=== PATIENT | male | born 1940 | race Caucasian/White ===

== ENCOUNTER 2016-05-17 08:55 | Outpatient (CLI) | payer MEDICARE, OTHER | END 2016-05-17 08:56 | disposition home or self-care (01) | DX: R73.9 Hyperglycemia, unspecified (principal); E78.5 Hyperlipidemia, unspecified ==

== ENCOUNTER 2016-12-06 13:20 | Emergency (ER) | payer MEDICARE, OTHER ==
[2016-12-06 13:31] VITALS: BP 140/78
--- NOTE | 2016-12-06 15:03 | ED Physician Documentation ---
PD HPI SKIN - Stated complaint Stated Complaint: L HAND SWOLLEN - Chief complaint Chief Complaint: Allergic Rx - History obtained from History obtained from: Patient - History of Present Illness Timing - onset: Other (Stung by a bee to the left pinky yesterday morning and has swelling and itching of that hand without pain or diffuse hives or airway symptoms.) Review of Systems Constitutional: reports: Reviewed and negative Cardiac: reports: Reviewed and negative Respiratory: reports: Reviewed and negative PD PAST MEDICAL HISTORY - Past Medical History Past Medical History: Yes Cardiovascular: Hypertension, Coronary artery disease Respiratory: None Endocrine/Autoimmune: None GI: GERD, Hiatal hernia, Colon polyps : Benign prostate hypertrophy, Frequency, Other HEENT: None Psych: Claustrophobia Musculoskeletal: Osteoarthritis Derm: None - Past Surgical History Past Surgical History: Yes General: Appendectomy Cardiovascular: Coronary stent - Present Medications Home Medications: Ambulatory Orders Medication Instructions Recorded Confirmed Aspirin [Kaleb] 325 mg PO DAILY 08/03/14 12/06/16 Losartan/Hydrochlorothiazide 1 tab PO DAILY 12/06/16 12/06/16 [Losartan-Hctz 100-25 mg Tab] predniSONE [Deltasone] 20 mg PO DAILY 3 Days 12/06/16 - Allergies Allergies/Adverse Reactions: Allergies Allergy/AdvReac Type Severity Reaction Status Date / Time No Known Drug Allergies Allergy Verified 12/06/16 13:31 - Social History Does the pt smoke?: No Smoking Status: Former smoker Does the pt drink ETOH?: Yes Does the pt have substance abuse?: No - Immunizations Immunizations are current?: Yes - POLST Patient has POLST: No POLST Status: Full Code PD ED PE NORMAL - Vitals Vital signs reviewed: Yes - General General: Alert and oriented X 3, No acute distress - HEENT HEENT: Pharynx benign - Extremities Extremities: Other (He has angioedema of the dorsum of the left hand especially on the medial side and difficulty making a fist because of the tightness, the swelling goes up to the wrist but not further. There is no evidence of infection.) - Neuro Neuro: Alert and oriented X 3, Normal speech - Psych Psych: Normal mood, Normal affect Results - Vitals Vitals: Vital Signs - 24 hr 12/06/16 13:28 Temperature 35.7 C L Heart Rate 85 Respiratory 16 Rate Blood Pressure 140/78 H O2 Saturation 98 Oxygen O2 Source Room air PD MEDICAL DECISION MAKING - ED course ED course: The patient was counseled as to the diagnosis and need for follow-up. I counseled the patient with regard to signs and symptoms that would necessitate an urgent reevaluation in the emergency department. They understand they are welcome to return at any time if worse or if not improving as expected. This document was made in part using voice recognition software. While efforts are made to proofread this documents, sound alike and grammatical errors may occur. Departure - Departure Disposition: 01 Home, Self Care Clinical Impression: Local reaction to bee sting Qualifiers: Encounter type: initial encounter Injury intent: accidental or unintentional Qualified Code(s): T63.441A - Toxic effect of venom of bees, accidental ( unintentional), initial encounter Condition: Good Record reviewed to determine appropriate education?: Yes Instructions: ED Bite Sting Insect Local Allergic React Prescriptions: predniSONE [Deltasone] 20 mg PO DAILY 3 Days Comments: Call your doctor to arrange a follow-up appointment, make the next available appointment. In the interim, return anytime if worse or if new symptoms develop. Your blood pressure was elevated today on check into the emergency department. This does not mean that you have hypertension, it is a common phenomenon to come to the emergency department and have elevated blood pressure. I recommend that she see your primary care physician within the week to have it rechecked when you are feeling better.
== END 2016-12-06 15:12 | disposition home or self-care (01) ==
LOC: ED 13:20
DX: T63.441A Toxic effect of venom of bees, accidental (unintentional), initial encounter (principal); T78.3XXA Angioneurotic edema, initial encounter; Z87.891 Personal history of nicotine dependence
CPT/HCPCS: 99283

== ENCOUNTER 2016-12-13 08:00 | Outpatient (CLI) | payer MEDICARE, OTHER ==
[2016-12-13 19:44] LABS: CREATININE 1.1 mg/dL (0.6-1.2)
== END 2016-12-13 08:01 | disposition home or self-care (01) ==
LOC: LAB.WCP 08:00
PROVIDERS: ATTEND Physician Assistant Medical
DX: B35.1 Tinea unguium (principal)
CPT/HCPCS: 36415; 82565; 84450; 84460

== ENCOUNTER 2016-12-28 10:03 | Day surgery (SDC) | payer MEDICARE, OTHER ==
[2016-12-28] MEDS ORDERED: LACTATED RINGERS 1,000 ML IV ONE (10:09)
[2016-12-28] MEDS ORDERED: fentaNYL 100 MCG/2 ML VIAL IVP ONE (10:40)
[2016-12-28] MEDS ORDERED: MIDAZOLAM 2 MG/2 ML VIAL IVP ONE (10:40)
[2016-12-28 11:47] VITALS: BP 110/68
== END 2016-12-28 10:04 | disposition home or self-care (01) ==
LOC: SDS 10:03
PROVIDERS: ATTEND Surgery
PROC: 0DJD8ZZ Inspection of Lower Intestinal Tract, Via Natural or Artificial Opening Endoscopic (ICD-10-PCS; principal; 2016-12-28 10:30)
DX: Z86.010 Personal history of colon polyps (principal); K57.30 Diverticulosis of large intestine without perforation or abscess without bleeding; Z79.82 Long term (current) use of aspirin; I10 Essential (primary) hypertension; Z87.891 Personal history of nicotine dependence; E78.00 Pure hypercholesterolemia, unspecified
CPT/HCPCS: 45378; J7120

== ENCOUNTER 2017-12-01 08:59 | Outpatient (CLI) | payer MEDICARE, OTHER ==
[2017-12-01 13:09] LABS: BASOPHILS % (AUTO) 0.5 %; EOSINOPHILS # (AUTO) 0.2 10^3/uL (0.0-0.7); EOSINOPHILS % (AUTO) 2.5 %; HGB - HEMOGLOBIN 14.2 g/dL (14.0-18.0); LYMPHOCYTES # (AUTO) 1.2 10^3/uL (1.5-3.5); LYMPHOCYTES % (AUTO) 18.2 %; MEAN CORPUSCULAR HEMOGLOBIN 31.3 pg (27.0-31.0); MEAN CORPUSCULAR HGB CONC 34.3 g/dL (32.0-36.0); MEAN CORPUSCULAR VOLUME 91.4 fL (80.0-94.0); MEAN PLATELET VOLUME 10.7 fL (7.4-11.4); MONOCYTES # (AUTO) 0.5 10^3/uL (0.0-1.0); MONOCYTES % (AUTO) 8.2 %; NEUTROPHILS # (AUTO) 4.6 10^3/uL (1.5-6.6); NEUTROPHILS % (AUTO) 70.6 %; PLT - PLATELET COUNT 215 10^3/uL (130-450); RED BLOOD COUNT 4.53 10^6/uL (4.70-6.10); RED CELL DISTRIBUTION WIDTH 13.2 % (12.0-15.0); WHITE BLOOD COUNT 6.4 x10^3/uL (4.8-10.8)
[2017-12-01 13:30] LABS: ALBUMIN 4.6 g/dL (3.2-5.5); ALBUMIN/GLOBULIN RATIO 1.4 (1.0-2.2); ALKALINE PHOSPHATASE 101 IU/L (42-121); ALT ALANINE AMINOTRANSFERASE 24 IU/L (10-60); AST ASPARTATE AMINOTRANSFERASE 21 IU/L (10-42); BILIRUBIN,TOTAL 0.7 mg/dL (0.2-1.0); BUN - BLOOD UREA NITROGEN 14 mg/dL (6-20); CALCIUM 9.5 mg/dL (8.5-10.3); CARBON DIOXIDE - CO2 27 mmol/L (21-32); CHLORIDE 105 mmol/L (101-111); CHOL/HDL RATIO 6.1 (<5.0); CHOLESTEROL 214 mg/dL; CREATININE 0.9 mg/dL (0.6-1.2); GFR - MDRD 82 (>89); GLUCOSE 115 mg/dL (70-100); HDL CHOLESTEROL 35 mg/dL; LDL CHOLESTEROL,CALCULATED 146 mg/dL; LDL/HDL RATIO 4.2 (<3.6); SODIUM 139 mmol/L (135-145); TOTAL PROTEIN 7.8 g/dL (6.7-8.2); VLDL CHOLESTEROL 33 mg/dL
[2017-12-01 15:08] LABS: HB2 TOTAL 15.4 g/dL; HEMOGLOBIN A1C 0.68 g/dL; HEMOGLOBIN A1C % 6.2 % (4.6-6.2)
== END 2017-12-01 09:00 | disposition home or self-care (01) ==
LOC: LAB.WCP 08:59
PROVIDERS: ATTEND Physician Assistant Medical
DX: R73.9 Hyperglycemia, unspecified (principal); E78.5 Hyperlipidemia, unspecified; I25.10 Atherosclerotic heart disease of native coronary artery without angina pectoris; K21.9 Gastro-esophageal reflux disease without esophagitis; F10.10 Alcohol abuse, uncomplicated; I10 Essential (primary) hypertension
CPT/HCPCS: 36415; 80053; 80061; 83036; 83721; 84443; 85025

== ENCOUNTER 2017-12-29 10:55 | Outpatient (CLI) | payer MEDICARE, OTHER | END 2017-12-29 10:56 | disposition home or self-care (01) | LOC: RT 10:55 | PROVIDERS: ATTEND Internal Medicine Cardiovascular Disease | DX: I25.10 Atherosclerotic heart disease of native coronary artery without angina pectoris (principal) | CPT/HCPCS: 93005 ==

== ENCOUNTER 2018-11-16 07:56 | Outpatient (CLI) | payer MEDICARE, OTHER ==
[2018-11-16 08:27] LABS: ALBUMIN 4.4 g/dL (3.2-5.5); ALBUMIN/GLOBULIN RATIO 1.3 (1.0-2.2); ALKALINE PHOSPHATASE 83 IU/L (42-121); ALT ALANINE AMINOTRANSFERASE 30 IU/L (10-60); AST ASPARTATE AMINOTRANSFERASE 21 IU/L (10-42); BILIRUBIN,TOTAL 0.8 mg/dL (0.2-1.0); BUN - BLOOD UREA NITROGEN 16 mg/dL (6-20); CALCIUM 9.5 mg/dL (8.5-10.3); CARBON DIOXIDE - CO2 27 mmol/L (21-32); CHLORIDE 102 mmol/L (101-111); CHOL/HDL RATIO 5.5 (<5.0); CHOLESTEROL 218 mg/dL; CREATININE 1.2 mg/dL (0.6-1.2); GFR - MDRD 58 (>89); GLUCOSE 137 mg/dL (70-100); HDL CHOLESTEROL 40 mg/dL; LDL CHOLESTEROL,CALCULATED 143 mg/dL; LDL/HDL RATIO 3.6 (<3.6); SODIUM 138 mmol/L (135-145); TOTAL PROTEIN 7.9 g/dL (6.7-8.2); VLDL CHOLESTEROL 35 mg/dL
[2018-11-16 13:57] LABS: HB2 TOTAL 14.4 g/dL; HEMOGLOBIN A1C 0.74 g/dL; HEMOGLOBIN A1C % 6.9 % (4.6-6.2)
== END 2018-11-16 07:57 | disposition home or self-care (01) ==
LOC: LAB 07:56
PROVIDERS: ATTEND Physician Assistant Medical
DX: E78.5 Hyperlipidemia, unspecified (principal); R73.9 Hyperglycemia, unspecified
CPT/HCPCS: 36415; 80053; 80061; 83036; 83721

== ENCOUNTER 2019-03-05 09:00 | Outpatient (CLI) | payer MEDICARE, OTHER ==
[2019-03-05 13:18] LABS: ALBUMIN 4.5 g/dL (3.2-5.5); ALBUMIN/GLOBULIN RATIO 1.4 (1.0-2.2); ALKALINE PHOSPHATASE 78 IU/L (42-121); ALT ALANINE AMINOTRANSFERASE 32 IU/L (10-60); AST ASPARTATE AMINOTRANSFERASE 25 IU/L (10-42); BILIRUBIN,TOTAL 0.8 mg/dL (0.2-1.0); BUN - BLOOD UREA NITROGEN 15 mg/dL (6-20); CARBON DIOXIDE - CO2 28 mmol/L (21-32); CHLORIDE 100 mmol/L (101-111); CHOL/HDL RATIO 5.8 (<5.0); CHOLESTEROL 250 mg/dL; CREATININE 1.1 mg/dL (0.6-1.2); GFR - MDRD 65 (>89); GLUCOSE 132 mg/dL (70-100); HDL CHOLESTEROL 43 mg/dL; LDL CHOLESTEROL,CALCULATED 137 mg/dL; LDL/HDL RATIO 3.2 (<3.6); SODIUM 136 mmol/L (135-145); TOTAL PROTEIN 7.7 g/dL (6.7-8.2); VLDL CHOLESTEROL 70 mg/dL
[2019-03-05 13:21] LABS: HB2 TOTAL 14.8 g/dL; HEMOGLOBIN A1C 0.76 g/dL; HEMOGLOBIN A1C % 6.8 % (4.6-6.2)
== END 2019-03-05 23:59 | disposition home or self-care (01) ==
LOC: LAB.WCP 09:00
PROVIDERS: ATTEND Physician Assistant Medical
DX: E78.5 Hyperlipidemia, unspecified (principal); R73.9 Hyperglycemia, unspecified
CPT/HCPCS: 36415; 80053; 80061; 83036; 83721

== ENCOUNTER 2019-12-11 15:20 | Outpatient (CLI) | payer MEDICARE, OTHER | END 2019-12-11 23:59 | disposition home or self-care (01) | LOC: COV 15:20 | PROVIDERS: ATTEND Family Medicine | DX: Z20.828 Contact with and (suspected) exposure to other viral communicable diseases (principal) ==

== ENCOUNTER 2020-02-08 08:54 | Outpatient (CLI) | payer MEDICARE, OTHER ==
[2020-02-08 09:42] LABS: BUN - BLOOD UREA NITROGEN 19 mg/dL (6-20); CALCIUM 9.1 mg/dL (8.5-10.3); CARBON DIOXIDE - CO2 28 mmol/L (21-32); CHLORIDE 102 mmol/L (101-111); CHOL/HDL RATIO 5.7 (<5.0); CHOLESTEROL 247 mg/dL; CREATININE 1.1 mg/dL (0.6-1.2); GLUCOSE 149 mg/dL (70-100); HDL CHOLESTEROL 43 mg/dL; LDL CHOLESTEROL,CALCULATED 160 mg/dL; LDL/HDL RATIO 3.7 (<3.6); SODIUM 138 mmol/L (135-145); VLDL CHOLESTEROL 44 mg/dL
[2020-02-08 12:44] LABS: HEMOGLOBIN A1c% 6.8 % (4.27-6.07)
== END 2020-02-08 08:55 | disposition home or self-care (01) ==
LOC: LAB 08:54
PROVIDERS: ATTEND Physician Assistant Medical
DX: E11.9 Type 2 diabetes mellitus without complications (principal)
CPT/HCPCS: 36415; 80048; 80061; 83036; 83721

== ENCOUNTER 2020-02-13 11:51 | Outpatient (CLI) | payer MEDICARE, OTHER ==
[2020-02-13 12:30] LABS: BASOPHILS % (AUTO) 0.4 %; EOSINOPHILS # (AUTO) 0.1 10^3/uL (0.0-0.7); EOSINOPHILS % (AUTO) 1.7 %; HGB - HEMOGLOBIN 14.7 g/dL (14.0-18.0); LYMPHOCYTES # (AUTO) 1.5 10^3/uL (1.5-3.5); LYMPHOCYTES % (AUTO) 19.4 %; MEAN CORPUSCULAR HEMOGLOBIN 32.5 pg (27.0-31.0); MEAN CORPUSCULAR HGB CONC 33.6 g/dL (32.0-36.0); MEAN CORPUSCULAR VOLUME 96.7 fL (80.0-94.0); MONOCYTES # (AUTO) 0.7 10^3/uL (0.0-1.0); MONOCYTES % (AUTO) 8.8 %; NEUTROPHILS # (AUTO) 5.4 10^3/uL (1.5-6.6); NEUTROPHILS % (AUTO) 69.3 %; PLT - PLATELET COUNT 216 10^3/uL (130-450); RED BLOOD COUNT 4.53 10^6/uL (4.70-6.10); RED CELL DISTRIBUTION WIDTH 12.9 % (12.0-15.0); WHITE BLOOD COUNT 7.8 x10^3/uL (4.8-10.8)
[2020-02-13 12:58] LABS: THYROID STIMULATING HORMONE 1.48 uIU/mL (0.34-5.60)
[2020-02-13 13:04] LABS: FERRITIN 163.3 ng/mL (23.9-336.2)
== END 2020-02-13 11:52 | disposition home or self-care (01) ==
LOC: LAB 11:51
PROVIDERS: ATTEND Physician Assistant Medical
DX: M62.81 Muscle weakness (generalized) (principal); R53.83 Other fatigue
CPT/HCPCS: 36415; 81599; 82306; 82607; 82728; 84402; 84403; 84443; 85025

== ENCOUNTER 2020-08-25 08:00 | Outpatient (CLI) | payer MEDICARE, OTHER ==
[2020-08-25 12:28] LABS: ESTIMATED AVERAGE GLUCOSE 154 mg/dL (70-100)
[2020-08-25 12:31] LABS: ALBUMIN 4.7 g/dL (3.2-5.5); ALBUMIN/GLOBULIN RATIO 1.5 (1.0-2.2); ALKALINE PHOSPHATASE 89 IU/L (42-121); ALT ALANINE AMINOTRANSFERASE 31 IU/L (10-60); AST ASPARTATE AMINOTRANSFERASE 22 IU/L (10-42); BILIRUBIN,TOTAL 0.8 mg/dL (0.2-1.0); BUN - BLOOD UREA NITROGEN 21 mg/dL (6-20); CALCIUM 9.6 mg/dL (8.5-10.3); CARBON DIOXIDE - CO2 26 mmol/L (21-32); CHLORIDE 103 mmol/L (101-111); CHOL/HDL RATIO 3.9 (<5.0); CHOLESTEROL 185 mg/dL; CREATININE 1.1 mg/dL (0.6-1.2); GFR - MDRD 64 (>89); GLUCOSE 126 mg/dL (70-100); HDL CHOLESTEROL 47 mg/dL; LDL CHOLESTEROL,CALCULATED 110 mg/dL; LDL/HDL RATIO 2.3 (<3.6); POTASSIUM 4.5 mmol/L (3.5-5.0); SODIUM 140 mmol/L (135-145); TOTAL PROTEIN 7.9 g/dL (6.7-8.2); TRIGLYCERIDES 139 mg/dL; VLDL CHOLESTEROL 28 mg/dL
== END 2020-08-25 23:59 | disposition home or self-care (01) ==
LOC: LAB.WCP 08:00
PROVIDERS: ATTEND Physician Assistant Medical
DX: E11.9 Type 2 diabetes mellitus without complications (principal); E55.9 Vitamin D deficiency, unspecified
CPT/HCPCS: 36415; 80053; 80061; 82306; 83036; 83721

== ENCOUNTER 2021-02-11 08:00 | Outpatient (CLI) | payer MEDICARE, OTHER ==
[2021-02-11 12:41] LABS: ESTIMATED AVERAGE GLUCOSE 163 mg/dL (70-100); HEMOGLOBIN A1c% 7.3 % (4.27-6.07)
[2021-02-11 13:03] LABS: ALBUMIN 4.3 g/dL (3.2-5.5); ALBUMIN/GLOBULIN RATIO 1.3 (1.0-2.2); ALKALINE PHOSPHATASE 89 IU/L (42-121); ALT ALANINE AMINOTRANSFERASE 26 IU/L (10-60); AST ASPARTATE AMINOTRANSFERASE 18 IU/L (10-42); BILIRUBIN,TOTAL 0.7 mg/dL (0.2-1.0); BUN - BLOOD UREA NITROGEN 17 mg/dL (6-20); CALCIUM 9.4 mg/dL (8.5-10.3); CARBON DIOXIDE - CO2 29 mmol/L (21-32); CHLORIDE 103 mmol/L (101-111); CHOL/HDL RATIO 6.6 (<5.0); CHOLESTEROL 212 mg/dL; GFR - MDRD 72 (>89); GLUCOSE 132 mg/dL (70-100); HDL CHOLESTEROL 32 mg/dL; LDL CHOLESTEROL,CALCULATED 137 mg/dL; LDL/HDL RATIO 4.3 (<3.6); POTASSIUM 4.4 mmol/L (3.5-5.0); SODIUM 141 mmol/L (135-145); TOTAL PROTEIN 7.7 g/dL (6.7-8.2); TRIGLYCERIDES 214 mg/dL; VLDL CHOLESTEROL 43 mg/dL
== END 2021-02-11 23:59 ==
LOC: LAB.WCP 08:00
PROVIDERS: ATTEND Physician Assistant Medical
DX: E11.9 Type 2 diabetes mellitus without complications (principal)
CPT/HCPCS: 36415; 80053; 80061; 83036; 83721

== ENCOUNTER 2021-03-05 08:22 | Outpatient (CLI) | payer MEDICARE, OTHER ==
--- NOTE | 2021-03-05 11:06 | CARDIAC PROCEDURE NOTE ---
Stress Test Report Service Date: 03/05/21 Service Time: 09:30 Ordering Provider: Brooke Simon PA-C Indication for Test: Assess for recurrent ischemia in patient with prior right coronary artery stent in 2013, now with recurrent exertional chest discomfort. Significant Medical History: Obed reports that he experienced exertional chest discomfort in 2012 that led to an abnormal stress test, coronary angiography and placement of an RCA stent; afterwards he had relief of his discomfort. He reports that about a year ago he started having intermittent episodes of a similar type of chest discomfort, usually with some combination of being post-prandial, physically active and/or in the cold. He reports no associated nausea, diaphoresis, lightheadness or marked dyspnea, nor chest discomfort at rest. He mentions receiving acupuncture treatments for several months, up until about 4 months ago, but then discontinued. It was after this time that the chest discomfort became more troublesome to him, though it has generally remained stable in intensity and will subside with just a couple of minutes of resting. He remains very active, with daily Anthony-Anuel, periodic use of a home rowing machine and participation in a boxing group; he does not feel that there has been a decrement in his stamina or exercise capacity. He mentions that he has exercise-related left leg pain, so he prefers exercise favoring his upper extremities. Cardiac Risk Factors: Positive for prior known CAD, s/p PCI; also for hypertension, hyperlipidemia and diabetes. Has a significant (>30 yrs) tobacco smoking history but quit nearly 40 yrs ago. He is not aware of close relatives with CAD. Type of Stress Test: ETT with Myocardial Perfusion Imaging Procedure: -Exercise Treadmill Test- After signing informed consent, the patient underwent resting 99Tc-Myoview SPECT imaging and then performed treadmill exercise using a Lino protocol. The patient exercised for 4 minutes 33 seconds and achieved a peak heart rate of 130 (93 percent predicted maximum heart rate for age), and an estimated workload of 6.5 METS. The test was terminated due to marked dyspnea, achieving target heart rate, though following onset of his typical chest discomfort after onset of stage II. As he exercised for another ~one minute, dyspnea became limiting. Progressive left leg pain also was becoming limiting. Resting heart rate: 79 Peak heart rate: 130 Normal response to exercise. Resting BP: 194/88 Peak BP: 204/75; though BP actually decreased with exercise (188/74) prior to increasing during Recovery phase, with reading of 204/75 at 3 minutes. Thus he was hypertensive at rest (omitted AM losartan as he just ran out) with an ABNORMAL BP response to exercise. Rhythm during exercise: Sinus rhythm throughout, with rare isolated PVCs noted. Symptoms: As described above. EKG at rest showed normal sinus rhythm, probable left atrial abnormality and left anterior fascicular block. EKG at peak stress showed no ischemia by EKG criteria, though there was prolongation of his QRS complex duration (possibly becoming abnormal at 120 msec). In Recovery heart rate rapidly and normally returned to baseline; blood pressure evolution was as described above, with last reading at 9 minutes below baseline (179/73). The QRS duration decreased back to baseline (~105 msec) by the conclusion of Recovery. Nuclear imaging was performed at rest and with stress and will be reported separately. Trev Malone MD, was present throughout this treadmill stress study and supervised it in its entirety. Summary: 1) Exercise tolerance significantly reduced for age as evidenced by WILIAN of 19.5%. 2) Abnormal resting EKG, with left anterior fascicular block. 3) Adequate level of exercise was achieved on this treadmill stress test. 4) Hypertensive at rest with abnormal BP response to exercise, as detailed above. 5) There were no specific ischemic changes by EKG criteria seen at peak stress, though the QRS complex duration transiently increased to the abnormal range. 6) Analysis of gated nuclear images reveals normal resting left ventricular wall motion with low normal ejection fraction of 54%. SPECT image analysis reveals normal perfusion of the LV at rest with a stress-associated defect in the mid inferior and lateral church, indicative of ischemia in the left circumflex coronary artery territory. See separate report for more detail. CONCLUSIONS/RECOMMENDATIONS: 1) Abnormal exercise study, with recreation of patient's symptoms, blood pressure decrease from abnormally elevated baseline through exercise then rebound in Recovery phase, and incremental exercise-associated increase in the QRS duration. However there was no ST depression observed. 2) Nuclear image analysis indicates inducible ischemia in the left circumflex coronary artery territory. 3) Recommendations discussed with referring provider (Brooke Simon) on the day of the study include: resume aspirin at 81 mg daily, initiate metoprolol tartrate at 25 mg bid, consider issuing rx for SL NTG and resume statin treatment. The patient reported stopping atorvastatin due to tolerance issues, with subsequent ingestion of red yeast rice (in setting of markedly elevated "bad cholesterol", per his report). Given his known prior CAD, major ongoing risks and results highly suggestive of circumflex territory ischemia he should be trialed on low dose (5 mg) rosuvastatin given initially at twice weekly. If tolerating after 3-4 weeks the dosing interval could be changed to every other day and repeat fasting lipid testing performed after 3-4 weeks of QOD use. If not at target (<50 mg/dL), the dose could be doubled sequentially, to max tolerated level or to target LDLc level. 4) Patient should be seen in primary clinic in 5-7 days for assessment of response to metoprolol (symptoms, BP) and referred back to Cardiology in 3-6 weeks for consideration for repeat angiography, or sooner if symptoms increase.
--- NOTE | 2021-03-05 14:41 | Nuclear Medicine Report ---
PROCEDURE: Rest and exercise myocardial perfusion SPECT with gated imaging and ejection fraction INDICATIONS: CAD. History of prior cardiac stent placement. RADIOPHARMACEUTICAL: 13.4 mCi Tc-99m Myoview IV at rest and 39.9 mCi Tc-99m Myoview IV at peak exerc ise. Dom-ljy-dmimoade was performed. TECHNIQUE: Radiopharmaceutical was injected at peak stress test, and also at rest. SPECT images wer e obtained. SPECT myocardial perfusion images were displayed in short axis, horizontal long axis, an d vertical long axis views. Gated images were reviewed using [employer] software. COMPARISON: 01/22/2013 FINDINGS: Raw data: There is good myocardial labeling by radiotracer. No significant motion artifacts. Lung- to-heart ratio is 0.33 (normal is less than 0.46 for tetrafosmin tracer). Left ventricle function: Gated images demonstrate normal left ventricle wall thickening. No segment al wall motion abnormality. No transient ischemic dilation; TID is 0.96 (normal less than 1.30). Th e left ventricle resting end-diastolic volume is 111 mL. Left ventricle stress ejection fraction is 54%; normal values are above 45%. Myocardial perfusion: There is normal relative distribution of activity in the left and right ventri cular myocardium. There is a moderate-sized reversible perfusion defect within the mid to distal inf erolateral wall highly suggestive of ischemia. Decreased activity within the inferior wall results on prone imaging consistent with soft tissue attenuation artifact. IMPRESSION: 1. Abnormal myocardial perfusion images with a moderate-sized reversible perfusion defect in the mid to distal inferolateral wall consistent with ischemia in the left circumflex artery territory. 2. Left ventricular ejection fraction within normal limits. No segmental wall motion values. Findings discussed with Dr. Moss on 03/05/2021 at 2:30 PM. PQRS ATTESTATIONS: Measure 322 - Is this imaging test primarily performed on a low-risk surgery patient for preoperative evaluation within 30 days preceding their low-risk non-cardiac surgery? Low-risk surgery is defined as cardiac or myocardial infarction less than 1%, including (but not limited to) endoscopic pr ocedures, superficial procedures, cataract surgery, and excisional breast surgery: Answer: No Measure 323 - Is this imaging test performed primarily for the monitoring of an asymptomatic patient who had percutaneous coronary intervention on the visit date or within 2 years of the visit date? An swer: No Measure 324 - Is this imaging test performed primarily for the initial detection and risk assessment on an asymptomatic, low coronary heart disease patient? Low CHD risk definition = clinicians should consider the maximum number of available patient factors used to estimate risk based on Durbin (A TP III criteria), typically age, gender, diabetes, smoking status, and use of blood pressure medicati on, and integrate age appropriate estimates for missing elements, such as LDL or standard blood press ure. Answer: No Reviewed by: Micah Clemens MD on 03/05/2021 2:39 PM PST Approved by: Micah Clemens MD on 03/05/2021 2:39 PM PST Station ID: [id number]
== END 2021-03-05 08:23 | disposition home or self-care (01) ==
LOC: DI 08:22
PROVIDERS: ATTEND Physician Assistant Medical
DX: I25.10 Atherosclerotic heart disease of native coronary artery without angina pectoris (principal); I10 Essential (primary) hypertension; I25.89 Other forms of chronic ischemic heart disease; E78.5 Hyperlipidemia, unspecified; E11.9 Type 2 diabetes mellitus without complications; Z87.891 Personal history of nicotine dependence
CPT/HCPCS: 78452; 93016; 93017; 93018; A9500

== ENCOUNTER 2021-05-11 08:25 | Outpatient (CLI) | payer MEDICARE, OTHER ==
[2021-05-11 08:49] LABS: CREATININE,URINE 260.8 mg/dL; MICROALBUM/CREATININE RATIO,UR 75.5 ug/mg (<30.0); MICROALBUMIN,URINE 19.7 mg/dL (0-300.0)
[2021-05-11 08:54] LABS: ALBUMIN 4.3 g/dL (3.2-5.5); ALBUMIN/GLOBULIN RATIO 1.3 (1.0-2.2); ALKALINE PHOSPHATASE 77 IU/L (42-121); ALT ALANINE AMINOTRANSFERASE 24 IU/L (10-60); AST ASPARTATE AMINOTRANSFERASE 17 IU/L (10-42); BILIRUBIN,TOTAL 0.9 mg/dL (0.2-1.0); BUN - BLOOD UREA NITROGEN 16 mg/dL (6-20); CALCIUM 9.3 mg/dL (8.5-10.3); CARBON DIOXIDE - CO2 28 mmol/L (21-32); CHLORIDE 103 mmol/L (101-111); CHOL/HDL RATIO 5.1 (<5.0); CHOLESTEROL 182 mg/dL; CREATININE 1.2 mg/dL (0.6-1.2); GFR - MDRD 58 (>89); GLUCOSE 156 mg/dL (70-100); HDL CHOLESTEROL 36 mg/dL; LDL CHOLESTEROL,CALCULATED 113 mg/dL; LDL/HDL RATIO 3.1 (<3.6); SODIUM 138 mmol/L (135-145); TOTAL PROTEIN 7.7 g/dL (6.7-8.2); TRIGLYCERIDES 166 mg/dL; VLDL CHOLESTEROL 33 mg/dL
[2021-05-11 12:26] LABS: ESTIMATED AVERAGE GLUCOSE 171 mg/dL (70-100); HEMOGLOBIN A1c% 7.6 % (4.27-6.07)
== END 2021-05-11 08:26 | disposition home or self-care (01) ==
LOC: LAB 08:25
PROVIDERS: ATTEND Physician Assistant Medical
DX: E11.9 Type 2 diabetes mellitus without complications (principal)
CPT/HCPCS: 36415; 80053; 80061; 82043; 82570; 83036; 83721

== ENCOUNTER 2021-09-17 08:07 | Emergency (ER) | payer MEDICARE, OTHER ==
[2021-09-17 08:17] VITALS: BP 162/68
--- NOTE | 2021-09-17 08:25 | ED Physician Documentation ---
PD HPI UPPER EXT INJURY - Stated complaint Stated Complaint: RIGHT HAND LACERATION - Chief complaint Chief Complaint: Laceration - History obtained from History obtained from: Patient - History of Present Illness Location: Right, Hand (dorsum of right hand with partial thickness skin peel with mild bleeding. No punctures. No purulence. Area is only about 1x 1 1/2 cm. No bony tenderness.) Type of injury: Other (dog bite to back of hand with superficial peel of skin.) Timing - onset: Yesterday Timing - details: Abrupt onset, Still present (he cleansed it right after and bandaged it. It was doing okay with slight oozing overnight onto bandage and bled again when unbandaged this morning.) Worsened by: Palpating Associated symptoms: No: Weakness, Numbness Similar symptoms before: Has not had sx before Review of Systems Neurologic: denies: Focal weakness, Numbness PD PAST MEDICAL HISTORY - Past Medical History Cardiovascular: Hypertension, High cholesterol, Coronary artery disease Respiratory: None Endocrine/Autoimmune: Type 2 diabetes GI: GERD, Hiatal hernia, Colon polyps : Benign prostate hypertrophy, Frequency, Other HEENT: None Psych: None, Claustrophobia Musculoskeletal: Osteoarthritis Derm: Other - Past Surgical History Past Surgical History: Yes General: Appendectomy Cardiovascular: Coronary stent - Present Medications Home Medications: Ambulatory Orders Medication Instructions Recorded Confirmed amLODIPine [Norvasc] 5 mg PO BID 03/22/19 09/17/21 Clopidogrel [Plavix] 75 mg PO DAILY 09/17/21 09/17/21 Losartan [Cozaar] 50 mg PO BID 09/17/21 09/17/21 Metoprolol Tartrate [Lopressor] 25 mg PO BID 09/17/21 09/17/21 Rosuvastatin Calcium [Crestor] 5 mg PO PRN 09/17/21 09/17/21 - Allergies Allergies/Adverse Reactions: Allergies Allergy/AdvReac Type Severity Reaction Status Date / Time milk AdvReac gas Verified 09/17/21 08:17 - Social History Does the pt smoke?: No Smoking Status: Former smoker Does the pt drink ETOH?: Yes Does the pt have substance abuse?: No - Immunizations Immunizations are current?: Yes - POLST Patient has POLST: No POLST Status: Full Code PD ED PE NORMAL - Vitals Vital signs reviewed: Yes - General General: Alert and oriented X 3, Well developed/nourished - Derm Derm: Normal color, Warm and dry - Extremities Extremities: Other (dorsum hand with superficial avulsion of skin 1 x 1 1/2 cm with mild bleeding capillary and small vein when bandage removed. No punctures. ) - Neuro Neuro: Alert and oriented X 3, No motor deficit, No sensory deficit Results - Vitals Vitals: Vital Signs - 24 hr 09/17/21 08:10 Temperature 36.2 C L Heart Rate 68 Respiratory 14 Rate Blood Pressure 162/68 H O2 Saturation 95 Oxygen O2 Source Room air PD MEDICAL DECISION MAKING - ED course Complexity details: re-evaluated patient (avulsion of superficial skin so easily cleaned. Discussion with patient and shared not to give abx, but to watch for infection. ), considered differential (local anesthetic with lido 1 % with epi and then cautery and Monsel solution to site to stop bleeding. Bleeding stopped and then bqndaged. ), d/w patient Departure - Departure Disposition: 01 Home, Self Care Clinical Impression: Avulsion of skin of right hand Qualifiers: Encounter type: initial encounter Qualified Code(s): S61.401A - Unspecified open wound of right hand, initial encounter Dog bite Qualifiers: Encounter type: initial encounter Qualified Code(s): W54.0XXA - Bitten by dog, initial encounter Condition: Stable Record reviewed to determine appropriate education?: Yes Instructions: ED Avulsion Dermal Follow-Up: Brooke Simon PA-C [Primary Care Provider] - Comments: Keep the wound bandaged and clean and dry today. Starting tomorrow he can resume cleaning with soap and water and applying ointment or new skin or such. It should be stopped bleeding now with the cautery/sealant. Recheck if signs of infection otherwise this will heal slowly over a week or 2. Discharge Date/Time: 09/17/21 09:00
[2021-09-17] MEDS ORDERED: FERRIC SUBSULFATE 8 ML SOLUTION (FOR OR) TOP STA (08:29)
[2021-09-17] MEDS ORDERED: LIDOCAINE 1%-EPI 1:100000 20 ML MDV SUBQ STA (08:29)
== END 2021-09-17 09:00 | disposition home or self-care (01) ==
LOC: ED 08:07
DX: S61.401A Unspecified open wound of right hand, initial encounter (principal); W54.0XXA Bitten by dog, initial encounter; I10 Essential (primary) hypertension; E11.9 Type 2 diabetes mellitus without complications; Z87.891 Personal history of nicotine dependence
CPT/HCPCS: 99282

== ENCOUNTER 2021-11-13 09:46 | Outpatient (CLI) | payer MEDICARE, OTHER ==
[2021-11-13 10:19] LABS: ALBUMIN 4.5 g/dL (3.2-5.5); ALBUMIN/GLOBULIN RATIO 1.5 (1.0-2.2); ALKALINE PHOSPHATASE 92 IU/L (42-121); ALT ALANINE AMINOTRANSFERASE 24 IU/L (10-60); AST ASPARTATE AMINOTRANSFERASE 21 IU/L (10-42); BILIRUBIN,TOTAL 0.7 mg/dL (0.2-1.0); BUN - BLOOD UREA NITROGEN 13 mg/dL (6-20); CHOL/HDL RATIO 4.9 (<5.0); CHOLESTEROL 178 mg/dL; GFR - MDRD 72 (>89); HDL CHOLESTEROL 36 mg/dL; LDL CHOLESTEROL,CALCULATED 108 mg/dL; TOTAL PROTEIN 7.6 g/dL (6.7-8.2); TRIGLYCERIDES 171 mg/dL; VLDL CHOLESTEROL 34 mg/dL
[2021-11-13 10:22] LABS: CALCIUM 9.2 mg/dL (8.5-10.3); CARBON DIOXIDE - CO2 25 mmol/L (21-32); CHLORIDE 100 mmol/L (101-111); GLUCOSE 123 mg/dL (70-100); POTASSIUM 4.1 mmol/L (3.5-5.0); SODIUM 134 mmol/L (135-145)
[2021-11-13 10:43] LABS: ESTIMATED AVERAGE GLUCOSE 166 mg/dL (70-100); HEMOGLOBIN A1c% 7.4 % (4.27-6.07)
== END 2021-11-13 09:47 | disposition home or self-care (01) ==
LOC: LAB 09:46
PROVIDERS: ATTEND Physician Assistant Medical
DX: E11.9 Type 2 diabetes mellitus without complications (principal)
CPT/HCPCS: 36415; 80053; 80061; 83036; 83721

== ENCOUNTER 2022-02-05 08:24 | Outpatient (CLI) | payer MEDICARE, OTHER ==
[2022-02-05 08:55] LABS: BUN - BLOOD UREA NITROGEN 15 mg/dL (6-20); CALCIUM 9.5 mg/dL (8.5-10.3); CARBON DIOXIDE - CO2 27 mmol/L (21-32); CHLORIDE 103 mmol/L (101-111); CHOL/HDL RATIO 3.2 (<5.0); CHOLESTEROL 138 mg/dL; CREATININE 1.2 mg/dL (0.6-1.2); GFR - MDRD 58 (>89); GLUCOSE 145 mg/dL (70-100); HDL CHOLESTEROL 43 mg/dL; LDL CHOLESTEROL,CALCULATED 73 mg/dL; LDL/HDL RATIO 1.7 (<3.6); POTASSIUM 3.9 mmol/L (3.5-5.0); SODIUM 140 mmol/L (135-145); TRIGLYCERIDES 108 mg/dL; VLDL CHOLESTEROL 22 mg/dL
[2022-02-05 12:54] LABS: ESTIMATED AVERAGE GLUCOSE 163 mg/dL (70-100); HEMOGLOBIN A1c% 7.3 % (4.27-6.07)
== END 2022-02-05 08:25 | disposition home or self-care (01) ==
LOC: LAB 08:24
PROVIDERS: ATTEND Physician Assistant Medical
DX: E11.9 Type 2 diabetes mellitus without complications (principal)
CPT/HCPCS: 36415; 80048; 80061; 83036; 83721

== ENCOUNTER 2022-04-29 01:33 | Outpatient (CLI) | payer MEDICARE, OTHER | END 2022-04-29 01:34 | disposition critical access hospital (66) | LOC: EMS 01:33 | DX: R06.00 Dyspnea, unspecified (principal) | CPT/HCPCS: A0425; A0427 ==

== ENCOUNTER 2022-04-29 01:41 | Emergency (ER) | payer MEDICARE, OTHER ==
--- NOTE | 2022-04-29 01:41 | ED Physician Documentation ---
PD HPI DYSPNEA - Stated complaint Stated Complaint: SOA - History obtained from History obtained from: EMS - Additional information Additional information: HPI is very limited due to severe respiratory distress. Nearly all of the HPI is provided by EMS. EMS reports that approximately 30 to 40 minutes prior to arrival in the emergency department, patient called 911 with complaint of shortness of breath. Patient indicated to EMS that he felt like he is drowning. EMS arrived to find patient's pulse ox in the mid 60s on room air. They applied CPAP and had modest improvement of pulse ox to 75 to 80% by the time of ER arrival. Peripheral IV was established by EMS but they were only minutes away from the emergency department and thus no other interventions aside from the CPAP were undertaken. Patient is able to give a few answers to questions when I try to interview him. He frequently says "help me". Otherwise, but few questions he is able to answer are mostly answered with nodding or shaking his head yes or no. He indicates to me he is not having any chest pain. He indicates to me that he does not have history of similar shortness of breath, and that he does not have a history of congestive heart failure. Time of onset is not apparent on my attempt at HPI. Patient indicates to me that he does not use oxygen at home. Explained to patient that we would give some medications to help with his breathing, but I also asked that should he need to be put on a ventilator would this be consistent with what he would want done, and he readily nods his head and says "yes" Review of Systems Unable to obtain: Other (limited ROS due to severity of respiratory distress) Cardiac: denies: Chest pain / pressure PD PAST MEDICAL HISTORY - Past Medical History Past Medical History: Yes Cardiovascular: Hypertension, High cholesterol, Coronary artery disease - Past Surgical History Cardiovascular: Coronary stent - Present Medications Home Medications: Ambulatory Orders Medication Instructions Recorded Confirmed amLODIPine [Norvasc] 5 mg PO BID 03/22/19 09/17/21 Clopidogrel [Plavix] 75 mg PO DAILY 09/17/21 09/17/21 Losartan [Cozaar] 50 mg PO BID 09/17/21 09/17/21 Metoprolol Tartrate [Lopressor] 25 mg PO BID 09/17/21 09/17/21 Rosuvastatin Calcium [Crestor] 5 mg PO PRN 09/17/21 09/17/21 - Allergies Allergies/Adverse Reactions: Allergies Allergy/AdvReac Type Severity Reaction Status Date / Time milk AdvReac gas Verified 09/17/21 08:17 - Living Situation Living Situation: reports: Alone Living Arrangement: reports: At home PD ED PE NORMAL - Vitals Vital signs reviewed: Yes - General General: Well developed/nourished, Other (awake, alert. he is in obvious severe respiratory distress) - HEENT HEENT: Moist mucous membranes - Neck Neck: Supple, no meningeal sign - Abdomen Abdomen: Soft, Non tender - Derm Derm: Normal color, Warm and dry - Extremities Extremities: No edema PD ED PE EXPANDED - Cardiac Cardiac: Tachy, Regular Rhythm - Respiratory Respiratory: Distress, Labored, Accessory mm use, Rhonchi (course rhonchi bilaterally , all lung fermin). No: Wheezing Results - Vitals Vitals: Vital Signs - 24 hr 04/29/22 04/29/22 04/29/22 01:49 01:50 02:08 Temperature Heart Rate 92 96 80 Respiratory 33 H Rate Blood Pressure 135/113 H 147/81 H O2 Saturation 93 42 L 04/29/22 04/29/22 04/29/22 02:26 02:30 03:00 Temperature Heart Rate 100 73 62 Respiratory 33 H 22 26 H Rate Blood Pressure 76/58 L 104/58 L O2 Saturation 82 L 83 L 84 L 04/29/22 04/29/22 04/29/22 03:30 04:00 04:27 Temperature 36.2 C L Heart Rate 54 L 53 L Respiratory 24 23 Rate Blood Pressure 109/57 L 114/58 L O2 Saturation 94 89 L 04/29/22 04/29/22 04/29/22 04:30 05:00 05:30 Temperature 36.1 C L 36.2 C L Heart Rate 53 L 55 L 56 L Respiratory 24 22 20 Rate Blood Pressure 122/59 L 132/69 H 134/66 H O2 Saturation 94 95 96 04/29/22 04/29/22 04/29/22 06:00 06:30 07:00 Temperature 36.3 C L 36.3 C L 36.4 C L Heart Rate 56 L 56 L 66 Respiratory 20 21 20 Rate Blood Pressure 124/65 93/56 L 143/73 H O2 Saturation 95 98 99 04/29/22 04/29/22 07:15 07:28 Temperature Heart Rate 66 60 Respiratory 20 20 Rate Blood Pressure 149/76 H 129/70 O2 Saturation 98 99 Oxygen O2 Source Mechanical ventilator - EKG (time done) No standard instances Rate: Rate (enter#) (95) Rhythm: NSR [place]: LAD Intervals: Wide QRS (NSIVCD) QRS: LVH Ischemia: ST elevation c/w repol #2 Rate: Rate (enter#) (53) Rhythm: Sinus bradycardia [place]: LAD Intervals: Prolonged MS, LBBB QRS: LVH - Labs Labs: Laboratory Tests 04/29/22 04/29/22 04/29/22 01:53 01:53 01:53 WBC 18.5 H RBC 5.38 Hgb 16.3 Hct 52.1 H MCV 96.8 H MCH 30.3 MCHC 31.3 L RDW 13.6 Plt Count 317 MPV 12.2 H Neut # (Auto) Not Reportable Lymph # (Auto) Not Reportable Anderson # (Auto) Not Reportable Eos # (Auto) Not Reportable Baso # (Auto) Not Reportable Absolute Nucleated RBC Not Reportable Total Counted 100 Band Neuts % (Manual) 0 Abnorm Lymph % (Manual) 0 Nucleated RBC % Not Reportable Neutrophils # (Manual) 11.1 H Lymphocytes # (Manual) 5.2 H Monocytes # (Manual) 1.7 H Eosinophils # (Manual) 0.6 Basophils # (Manual) 0.0 Differential Comment MANUAL DIFFERENTIAL WBC Morphology NORMAL APPEARANCE Platelet Estimate NORMAL (130-450,000) Platelet Morphology NORMAL APPEARANCE RBC Morph Micro Appear NORMAL APPEARANCE PT 12.8 H INR 1.2 APTT 33.5 H Bld Gas Analysis Time Sample Site ABG pH ABG pCO2 ABG pO2 ABG HCO3 ABG Total CO2 ABG O2 Saturation ABG Base Excess Aleksandr Test Respiration Rate O2 Delivery Device Vent Mode FiO2 Tidal Volume PEEP Sodium 139 Potassium 3.0 L Chloride 101 Carbon Dioxide 20 L Anion Gap 18.0 H BUN 20 Creatinine 1.4 H Estimated GFR (MDRD) 48 L Glucose 311 H Lactic Acid Calcium 9.1 Magnesium Total Bilirubin 0.6 AST 31 ALT 32 Alkaline Phosphatase 134 H Troponin I High Sens B-Natriuretic Peptide Total Protein 8.4 H Albumin 4.3 Globulin 4.1 Albumin/Globulin Ratio 1.0 Lipase 31 Nasal Adenovirus (PCR) Nasal B. parapertussis DNA (PCR) Nasal Coronavir 229E PCR Nasal Coronavir HKU1 PCR Nasal Coronavir NL63 PCR Nasal Coronavir OC43 PCR Nasal Enterovir/Rhinovir PCR Nasal Influenza B PCR Nasal Influenza A PCR Nasal Parainfluen 1 PCR Nasal Parainfluen 2 PCR Nasal Parainfluen 3 PCR Nasal Parainfluen 4 PCR Nasal RSV (PCR) Nasal B.pertussis DNA PCR Nasal C.pneumoniae (PCR) Nithin Human Metapneumo PCR Nasal M.pneumoniae (PCR) Nasal SARS-CoV-2 (PCR) 04/29/22 04/29/22 04/29/22 01:53 01:53 02:30 WBC RBC Hgb Hct MCV MCH MCHC RDW Plt Count MPV Neut # (Auto) Lymph # (Auto) Anderson # (Auto) Eos # (Auto) Baso # (Auto) Absolute Nucleated RBC Total Counted Band Neuts % (Manual) Abnorm Lymph % (Manual) Nucleated RBC % Neutrophils # (Manual) Lymphocytes # (Manual) Monocytes # (Manual) Eosinophils # (Manual) Basophils # (Manual) Differential Comment WBC Morphology Platelet Estimate Platelet Morphology RBC Morph Micro Appear PT INR APTT Bld Gas Analysis Time Sample Site ABG pH ABG pCO2 ABG pO2 ABG HCO3 ABG Total CO2 ABG O2 Saturation ABG Base Excess Aleksandr Test Respiration Rate O2 Delivery Device Vent Mode FiO2 Tidal Volume PEEP Sodium Potassium Chloride Carbon Dioxide Anion Gap BUN Creatinine Estimated GFR (MDRD) Glucose Lactic Acid Calcium Magnesium Total Bilirubin AST ALT Alkaline Phosphatase Troponin I High Sens 465.1 H* B-Natriuretic Peptide 691 H Total Protein Albumin Globulin Albumin/Globulin Ratio Lipase Nasal Adenovirus (PCR) NOT DETECTED Nasal B. parapertussis DNA (PCR) NOT DETECTED Nasal Coronavir 229E PCR NOT DETECTED Nasal Coronavir HKU1 PCR NOT DETECTED Nasal Coronavir NL63 PCR NOT DETECTED Nasal Coronavir OC43 PCR NOT DETECTED Nasal Enterovir/Rhinovir PCR NOT DETECTED Nasal Influenza B PCR NOT DETECTED Nasal Influenza A PCR NOT DETECTED Nasal Parainfluen 1 PCR NOT DETECTED Nasal Parainfluen 2 PCR NOT DETECTED Nasal Parainfluen 3 PCR NOT DETECTED Nasal Parainfluen 4 PCR NOT DETECTED Nasal RSV (PCR) NOT DETECTED Nasal B.pertussis DNA PCR NOT DETECTED Nasal C.pneumoniae (PCR) NOT DETECTED Nithin Human Metapneumo PCR NOT DETECTED Nasal M.pneumoniae (PCR) NOT DETECTED Nasal SARS-CoV-2 (PCR) NOT DETECTED 04/29/22 04/29/22 04/29/22 02:35 04:09 04:25 WBC RBC Hgb Hct MCV MCH MCHC RDW Plt Count MPV Neut # (Auto) Lymph # (Auto) Anderson # (Auto) Eos # (Auto) Baso # (Auto) Absolute Nucleated RBC Total Counted Band Neuts % (Manual) Abnorm Lymph % (Manual) Nucleated RBC % Neutrophils # (Manual) Lymphocytes # (Manual) Monocytes # (Manual) Eosinophils # (Manual) Basophils # (Manual) Differential Comment WBC Morphology Platelet Estimate Platelet Morphology RBC Morph Micro Appear PT INR APTT Bld Gas Analysis Time 0241 0430 Sample Site RIGHT RADIAL RIGHT RADIAL ABG pH 7.21 L 7.37 ABG pCO2 50 H 36 ABG pO2 71 L 59 L ABG HCO3 19.5 L 20.4 L ABG Total CO2 21.1 21.6 ABG O2 Saturation 90 L 89 L ABG Base Excess -8.7 L -4.1 L Aleksandr Test POSITIVE POSITIVE Respiration Rate 20 20 O2 Delivery Device VENTILATOR VENTILATOR Vent Mode ASSIST/CONTROL ASSIST/CONTROL FiO2 100.00 100.00 Tidal Volume 600 600 PEEP 10 5 Sodium Potassium Chloride Carbon Dioxide Anion Gap BUN Creatinine Estimated GFR (MDRD) Glucose Lactic Acid Calcium Magnesium Total Bilirubin AST ALT Alkaline Phosphatase Troponin I High Sens 4642.5 H* B-Natriuretic Peptide Total Protein Albumin Globulin Albumin/Globulin Ratio Lipase Nasal Adenovirus (PCR) Nasal B. parapertussis DNA (PCR) Nasal Coronavir 229E PCR Nasal Coronavir HKU1 PCR Nasal Coronavir NL63 PCR Nasal Coronavir OC43 PCR Nasal Enterovir/Rhinovir PCR Nasal Influenza B PCR Nasal Influenza A PCR Nasal Parainfluen 1 PCR Nasal Parainfluen 2 PCR Nasal Parainfluen 3 PCR Nasal Parainfluen 4 PCR Nasal RSV (PCR) Nasal B.pertussis DNA PCR Nasal C.pneumoniae (PCR) Nithin Human Metapneumo PCR Nasal M.pneumoniae (PCR) Nasal SARS-CoV-2 (PCR) 04/29/22 04/29/22 04/29/22 06:07 06:07 06:07 WBC RBC Hgb Hct MCV MCH MCHC RDW Plt Count MPV Neut # (Auto) Lymph # (Auto) Anderson # (Auto) Eos # (Auto) Baso # (Auto) Absolute Nucleated RBC Total Counted Band Neuts % (Manual) Abnorm Lymph % (Manual) Nucleated RBC % Neutrophils # (Manual) Lymphocytes # (Manual) Monocytes # (Manual) Eosinophils # (Manual) Basophils # (Manual) Differential Comment WBC Morphology Platelet Estimate Platelet Morphology RBC Morph Micro Appear PT INR APTT Bld Gas Analysis Time Sample Site ABG pH ABG pCO2 ABG pO2 ABG HCO3 ABG Total CO2 ABG O2 Saturation ABG Base Excess Aleksandr Test Respiration Rate O2 Delivery Device Vent Mode FiO2 Tidal Volume PEEP Sodium 138 Potassium 3.8 Chloride 103 Carbon Dioxide 20 L Anion Gap 15.0 H BUN 21 H Creatinine 1.4 H Estimated GFR (MDRD) 48 L Glucose 234 H Lactic Acid 2.4 H Calcium 9.1 Magnesium 2.0 Total Bilirubin 0.8 AST 125 H ALT 37 Alkaline Phosphatase 112 Troponin I High Sens B-Natriuretic Peptide Total Protein 7.4 Albumin 4.0 Globulin 3.4 Albumin/Globulin Ratio 1.2 Lipase 30 Nasal Adenovirus (PCR) Nasal B. parapertussis DNA (PCR) Nasal Coronavir 229E PCR Nasal Coronavir HKU1 PCR Nasal Coronavir NL63 PCR Nasal Coronavir OC43 PCR Nasal Enterovir/Rhinovir PCR Nasal Influenza B PCR Nasal Influenza A PCR Nasal Parainfluen 1 PCR Nasal Parainfluen 2 PCR Nasal Parainfluen 3 PCR Nasal Parainfluen 4 PCR Nasal RSV (PCR) Nasal B.pertussis DNA PCR Nasal C.pneumoniae (PCR) Nithin Human Metapneumo PCR Nasal M.pneumoniae (PCR) Nasal SARS-CoV-2 (PCR) - Rads (name of study) chest xray Radiology: Prelim report reviewed, EMP read indepedently, See rad report repeat CXR, post-intubation Radiology: Prelim report reviewed, EMP read indepedently, See rad report repeat CXR, post repositioning of NGT Radiology: Prelim report reviewed, EMP read indepedently, See rad report Procedures - Intubation - Major Provider: Emergency physician Medications: Versed, Propofol, Succinylcholine Blade: Glidescope Tube: Size-enter number (7.5), Marked at teeth-enter cm (24) Route: Oral Confirmation: Direct visualization (via glidescope), Bilateral breath sounds, No abdominal breath sound, End tidal CO2, Pulse ox, Chest xray Complications: Desaturated, Other (Initially, I attempted intubation using 8.0 ET tube via glide scope. This initial attempt was unsuccessful due to copious secretions, requiring repeated suctioning and repeatedly requiring clearing of the secretions from the GlideScope camera. I was able to successfully intubate the patient on a s) PD Medical Decision Making - ED course Complexity details: reviewed old records, reviewed results, re-evaluated patient, considered differential, d/w patient ED course: Initially, I attempted intubation using 8.0 ET tube via glide scope. This initial attempt was unsuccessful due to copious secretions, requiring repeated suctioning and repeatedly requiring clearing of the secretions from the GlideScope camera. I was able to successfully intubate the patient on a second try using a 7.5 mm ET tube via glide scope. Patient did desaturate to as low as mid 30s percent pulse ox, rapidly improving once he was intubated to upper 80s pulse ox. Shortly after presentation, patient was given 4 mg IV morphine, 80 mg IV Lasix, and 1 inch of nitroglycerin paste was applied to the anterior chest wall. The morphine and the nitroglycerin were used for preload reduction, as his exam was suggestive of acute pulmonary edema. Subsequent to intubation, he became hypotensive with systolic blood pressures into the 60s and, briefly, 50s systolic. Thus, the nitroglycerin paste was removed, vent setting was changed from PEEP 10-5, and Levophed drip was started at 8 mcg/kg/min. Levophed drip then was titrated up to 12 mcg/kg/min, and his blood pressure responded to these interventions, maintaining consistent systolic blood pressures in 100s-110s. His pulse ox improved to upper 80s shortly after intubation, and gradually, over the subsequent several hours in ED, his pulse ox gradually improved to mid- upper 90s. His initial EKG was suggestive of a nonspecific intraventricular conduction de lay, LVH with repolarization. Later in his stay, a repeat EKG demonstrates left bundle branch block; this appears to be new compared to the most recent and available EKG (from 2017) Previous records available in [email or web address] indicate an abnormal stress test 2012 that led to coronary Angiography and then placement of RCA stent.There were also notes from a stress test undertaken March 05, 2021 Which demonstrated an abnormal myocardial perfusion moderate sized, reversible In the mid to distal inferolateral wall consistent with ischemia in the left circumflex artery. Patient's initial hs-cTn is 465; two-hour repeat is 4642. At this point, I suspect cardiac ischemia (NSTEMI) causing acute pulmonary edema.Multiple hospitals were contacted to try to arrange for transfer to an appropriate higher level of care for this patient. Most of the hospitals we contacted were unable to accept the patient due to lack of available beds. I did discuss the case with the vehicle sales professional for [facility] (Dr. Mayer) Who agrees patient would be appropriate for transfer to his facility, and he is put on a waiting list pending bed availability Eventually, we were able to find an available bed at [facility].I discussed the case with Dr. Albarran (vehicle sales professional/die set up worker at [facility]). He agrees patient is appropriate for transfer to [facility]. He does ask that I discuss the case with the on-call elementary instructional coach for [facility]. However, within 15-20 minutes of this conversation, we were recontacted by the support services coordinator for [facility] indicating Dr. Albarran has accepted the patient and a room assignment is already given; the support services coordinator indicates that Dr. Albarran has contacted the elementary instructional coach and that transfer of patient should proceed as swiftly as possible. [facility] transport arrives rapidly and he is thus transferred shortly thereafter. I did recontact the support services coordinator to confirm that Dr. Albarran accepts the patient, that he does not require that I contact their elementary instructional coach, and support services coordinator confirms this. Furthermore, I had indicated to Dr. Albarran that a central line would be placed prior to transfer, but that given that he has two working peripheral IVs and that central line placement at this time would certainly delay transfer, I asked that they relay this information to Dr. Albarran (that patient would be arriving without a central line). - Critical Care Time(min): 75 Time Includes: Direct patient care, Review records, Reassess patient, Document c are, Coordinate care, Medical consult, See progress note Data interpretation: Labs, Pulse ox, ABG, CXR, Prior EKG, See progress note Procedures included in critical care time: Peripheral IV, Ventilator mgmt, See progress note Procedures excluded from critical care time: Intubation, EKG, See progress note Departure - Departure Disposition: 02 Transfer Acute Care Hosp Clinical Impression: NSTEMI (non-ST elevated myocardial infarction) Pulmonary edema Qualifiers: Chronicity: acute Qualified Code(s): J81.0 - Acute pulmonary edema Respiratory failure Qualifiers: Chronicity: acute Respiratory failure complication: hypoxia Qualified Code(s): J96.01 - Acute respiratory failure with hypoxia Condition: Stable Discharge Date/Time: 04/29/22 08:37
[2022-04-29] MEDS ORDERED: FUROSEMIDE 40 MG/4 ML VIAL IVP STA (01:45)
[2022-04-29] MEDS ORDERED: MORPHINE 2 MG/ML CARPUJECT IVP STA (01:45)
[2022-04-29] MEDS ORDERED: NITROGLYCERIN 2% PASTE TOP STA (01:52)
[2022-04-29] MEDS ORDERED: SUCCINYLCHOLINE 200 MG/10 ML VIAL IVP ONE (01:52)
[2022-04-29] MEDS ORDERED: MIDAZOLAM 10 MG/2 ML VIAL IVP STA ×2 (01:53→02:16)
[2022-04-29 02:00] LABS: BASOPHILS % (AUTO) 0.5 %; EOSINOPHILS % (AUTO) 1.7 %; HCT - HEMATOCRIT 52.1 % (42.0-52.0); HGB - HEMOGLOBIN 16.3 g/dL (14.0-18.0); LYMPHOCYTES % (AUTO) 26.1 %; MEAN CORPUSCULAR HEMOGLOBIN 30.3 pg (27.0-31.0); MEAN CORPUSCULAR HGB CONC 31.3 g/dL (32.0-36.0); MEAN CORPUSCULAR VOLUME 96.8 fL (80.0-94.0); MEAN PLATELET VOLUME 12.2 fL (7.4-11.4); MONOCYTES % (AUTO) 8.2 %; PLT - PLATELET COUNT 317 10^3/uL (130-450); RED BLOOD COUNT 5.38 10^6/uL (4.70-6.10); RED CELL DISTRIBUTION WIDTH 13.6 % (12.0-15.0); WHITE BLOOD COUNT 18.5 x10^3/uL (4.8-10.8)
[2022-04-29 02:06] LABS: ABNORMAL LYMPHS % (MANUAL) 0 %; BAND NEUTROPHILS % (MANUAL) 0 %
[2022-04-29 02:08] LABS: INR 1.2 (0.8-1.2); PT - PROTHROMBIN TIME 12.8 secs (9.9-12.6)
[2022-04-29] MEDS ORDERED: PROPOFOL 1000 MG/100 ML 1,000 MG/100 ML BOTTLE IV ONE (02:10)
[2022-04-29 02:14] LABS: ALBUMIN 4.3 g/dL (3.2-5.5); BILIRUBIN,TOTAL 0.6 mg/dL (0.2-1.0); CALCIUM 9.1 mg/dL (8.5-10.3); CREATININE 1.4 mg/dL (0.6-1.2); TOTAL PROTEIN 8.4 g/dL (6.7-8.2)
[2022-04-29 02:16] LABS: PARTIAL THROMBOPLASTIN TIME 33.5 secs (24.9-33.3)
[2022-04-29 02:23] LABS: DIFFERENTIAL COMMENT MANUAL DIFFERENTIAL; EOSINOPHILS # (MANUAL) 0.6 10^3/uL (0-0.7); LYMPHOCYTES # (MANUAL) 5.2 10^3/uL (1.5-3.5); LYMPHOCYTES % (MANUAL) 28 %; MONOCYTES # (MANUAL) 1.7 10^3/uL (0.0-1.0); NEUTROPHILS # (MANUAL) 11.1 10^3/uL (1.5-6.6); PLATELET ESTIMATE, MANUAL NORMAL (130-450,000) (NORMAL); PLATELET MORPHOLOGY NORMAL APPEARANCE (NORMAL); RBC MORPHOLOGY (MULTIPLE) NORMAL APPEARANCE (NORMAL); WBC MORPHOLOGY (MULTIPLE) NORMAL APPEARANCE (NORMAL)
[2022-04-29 02:52] LABS: ABG BASE EXCESS -8.7 mmol/L (-2.0-3.0); ABG HCO3 19.5 mmol/L (22.0-26.0); ABG OXYGEN SATURATION 90 % (94-98); ABG PCO2 50 mmHg (34-45); ABG PH 7.21 (7.35-7.45); ABG PO2 71 mmHg (80-100); ABG TCO2 21.1 MMOL/L (21.0-29.0); ALLEN TEST POSITIVE
[2022-04-29] MEDS ORDERED: NOREPINEPHRINE/0.9 % NS 8 MG/250 ML BAG IV ONE (02:52)
[2022-04-29 02:53] LABS: ABG MODE OF VENTILATION ASSIST/CONTROL; ABG RESPIRATORY RATE 20 b/min
[2022-04-29] MEDS ORDERED: NOREPINEPHRINE/0.9 % NS 8 MG/250 ML BAG IV SCH (03:00)
[2022-04-29] MEDS ORDERED: PROPOFOL 1000 MG/100 ML 1,000 MG/100 ML BOTTLE IV SCH (03:00)
[2022-04-29 03:28] LABS: B. PARAPERTUSSIS- RESP PCR PAN NOT DETECTED; B. PERTUSSIS- RESP PCR PANEL NOT DETECTED; C. PNEUMONIAE- RESP PCR PANEL NOT DETECTED; CORONAVIRUS 229E-RESP PCR NOT DETECTED; CORONAVIRUS HKU1-RESP PCR NOT DETECTED; CORONAVIRUS NL63-RESP PCR NOT DETECTED; CORONAVIRUS OC43-RESP PCR NOT DETECTED; HUMAN METAPNEUMOVIRUS NOT DETECTED; INFLUENZA A- RESP PCR PANEL NOT DETECTED; INFLUENZA B - RESP PCR PANEL NOT DETECTED; M. PNEUMONIAE- RESP PCR PANEL NOT DETECTED; PARAINFLUENZA VIRUS 1 NOT DETECTED; PARAINFLUENZA VIRUS 2 NOT DETECTED; PARAINFLUENZA VIRUS 3 NOT DETECTED; PARAINFLUENZA VIRUS 4 NOT DETECTED; RHINOVIRUS/ENTEROVIRUS NOT DETECTED; RSV- RESP PCR PANEL NOT DETECTED; SARS-CoV-2 -RESP PCR PANEL NOT DETECTED
[2022-04-29 04:39] LABS: ABG HCO3 20.4 mmol/L (22.0-26.0); ABG PCO2 36 mmHg (34-45); ABG PH 7.37 (7.35-7.45); ABG PO2 59 mmHg (80-100); ABG TCO2 21.6 MMOL/L (21.0-29.0)
[2022-04-29 04:40] LABS: ABG BASE EXCESS -4.1 mmol/L (-2.0-3.0); ABG MODE OF VENTILATION ASSIST/CONTROL; ABG OXYGEN SATURATION 89 % (94-98); ABG RESPIRATORY RATE 20 b/min; ALLEN TEST POSITIVE
[2022-04-29 06:48] LABS: ALBUMIN/GLOBULIN RATIO 1.2 (1.0-2.2); BILIRUBIN,TOTAL 0.8 mg/dL (0.2-1.0); CALCIUM 9.1 mg/dL (8.5-10.3); CREATININE 1.4 mg/dL (0.6-1.2); POTASSIUM 3.8 mmol/L (3.5-5.0); TOTAL PROTEIN 7.4 g/dL (6.7-8.2)
[2022-04-29 07:35] VITALS: BP 129/70
[2022-04-29] MEDS ORDERED: PROPOFOL 200 MG/20 ML VIAL IVP STA (07:36)
--- NOTE | 2022-04-29 08:40 | XRAY Report ---
PROCEDURE: Chest 1 View X-Ray INDICATIONS: NGT placement TECHNIQUE: One view of the chest was acquired. COMPARISON: Chest x-ray portable, 04/29/2022, 1:55 AM. FINDINGS: Surgical changes and devices: Endotracheal tube is present, 4.3 cm above soraida. A nasogastric tube is present with the tip in the area of the stomach. Lungs and pleura: No pleural effusions or pneumothorax. Lateral airspace opacities compatible with p ulmonary edema or bilateral pneumonia. Mediastinum: Mediastinal contours appear normal. Heart size is mildly increased. Bones and chest wall: No suspicious bony lesions. Overlying soft tissues appear unremarkable. IMPRESSION: Stable chest. No significant discrepancy with the preliminary interpretation. Reviewed by: Vanna Valverde MD on 04/29/2022 8:39 AM PST Approved by: Vanna Valverde MD on 04/29/2022 8:39 AM PST Station ID: [id number]
--- NOTE | 2022-04-29 08:44 | XRAY Report ---
PROCEDURE: Chest 1 View X-Ray INDICATIONS: post-intubation TECHNIQUE: One view of the chest was acquired. COMPARISON: Chest x-ray, 04/29/2022 at 1:27 AM. Chest x-ray 04/29/22 at 4:38 AM FINDINGS: Surgical changes and devices: Endotracheal tube is present with the tip 3.3 cm above soraida. There i s a nasogastric tube with the tip in the right mainstem bronchus. Lungs and pleura: No pleural effusions or pneumothorax. Bilateral airspace opacities compatible with bilateral pneumonia or pulmonary edema. Mediastinum: Mediastinal contours appear normal. Heart size is normal. Bones and chest wall: No suspicious bony lesions. Overlying soft tissues appear unremarkable. IMPRESSION: 1. Nasogastric tube within the right mainstem bronchus. This was corrected on subsequent chest x-ray. 2. Endotracheal tube in appropriate position. 3. Bilateral pulmonary infiltrates compatible with pneumonia or pulmonary edema. Concordant with the preliminary interpretation. Reviewed by: Vanna Valverde MD on 04/29/2022 8:42 AM PST Approved by: Vanna Valverde MD on 04/29/2022 8:42 AM PST Station ID: [id number]
--- NOTE | 2022-04-29 08:46 | XRAY Report ---
PROCEDURE: Chest 1 View X-Ray INDICATIONS: dyspnea TECHNIQUE: One view of the chest was acquired. COMPARISON: Chest x-ray, 07/24/2015. FINDINGS: Surgical changes and devices: None. Lungs and pleura: Bilateral airspace opacities are present. No pleural effusions or pneumothorax. Mediastinum: Mediastinal contours appear normal. Heart size is normal. Bones and chest wall: No suspicious bony lesions. Overlying soft tissues appear unremarkable. IMPRESSION: 1. Bilateral airspace opacities are present, suspicious for bilateral pneumonia or congestive heart f ailure. 2. No significant discrepancy with the preliminary interpretation. Reviewed by: Vanna Valverde MD on 04/29/2022 8:44 AM PST Approved by: Vanna Valverde MD on 04/29/2022 8:44 AM [facility] Station ID: [id number]
== END 2022-04-29 08:37 | disposition short-term general hospital (02) ==
LOC: EDUNIT# → ED 01:41
DX: I21.4 Non-ST elevation (NSTEMI) myocardial infarction (principal); I95.9 Hypotension, unspecified; I44.7 Left bundle-branch block, unspecified; Z20.822 Contact with and (suspected) exposure to COVID-19
CPT/HCPCS: 31500; 36415; 36600; 43753; 51702; 71045; 80053; 82803; 83605; 83690; 83735; 83880; 84484; 85025; 85610; 85730; 87040; 87633; 93005; 94002; 94660; 96365; 96366; 96375; 99291; 99292; A9270; J0330; J2250; 94770

== ENCOUNTER 2022-05-31 10:29 | Outpatient (CLI) | payer MEDICARE, OTHER ==
[2022-05-31 10:41] LABS: BASOPHILS # (AUTO) 0.1 10^3/uL (0.0-0.1); BASOPHILS % (AUTO) 0.7 %; EOSINOPHILS # (AUTO) 0.5 10^3/uL (0.0-0.7); EOSINOPHILS % (AUTO) 5.1 %; HCT - HEMATOCRIT 40.8 % (42.0-52.0); HGB - HEMOGLOBIN 12.5 g/dL (14.0-18.0); LYMPHOCYTES # (AUTO) 1.3 10^3/uL (1.5-3.5); MEAN CORPUSCULAR HEMOGLOBIN 29.1 pg (27.0-31.0); MEAN CORPUSCULAR HGB CONC 30.6 g/dL (32.0-36.0); MEAN CORPUSCULAR VOLUME 95.1 fL (80.0-94.0); MEAN PLATELET VOLUME 10.3 fL (7.4-11.4); MONOCYTES # (AUTO) 0.7 10^3/uL (0.0-1.0); MONOCYTES % (AUTO) 7.6 %; NEUTROPHILS # (AUTO) 6.4 10^3/uL (1.5-6.6); NEUTROPHILS % (AUTO) 72.3 %; PLT - PLATELET COUNT 345 10^3/uL (130-450); RED BLOOD COUNT 4.29 10^6/uL (4.70-6.10); RED CELL DISTRIBUTION WIDTH 14.3 % (12.0-15.0); WHITE BLOOD COUNT 8.9 x10^3/uL (4.8-10.8)
[2022-05-31 11:21] LABS: THYROID STIMULATING HORMONE 0.76 uIU/mL (0.34-5.60)
[2022-05-31 11:24] LABS: ALBUMIN 4.2 g/dL (3.2-5.5); ALBUMIN/GLOBULIN RATIO 1.1 (1.0-2.2); ALKALINE PHOSPHATASE 133 IU/L (42-121); ALT ALANINE AMINOTRANSFERASE 31 IU/L (10-60); AST ASPARTATE AMINOTRANSFERASE 28 IU/L (10-42); BILIRUBIN,TOTAL 0.6 mg/dL (0.2-1.0); BUN - BLOOD UREA NITROGEN 23 mg/dL (6-20); CALCIUM 9.3 mg/dL (8.5-10.3); CARBON DIOXIDE - CO2 25 mmol/L (21-32); CHLORIDE 102 mmol/L (101-111); CHOL/HDL RATIO 3.7 (<5.0); CHOLESTEROL 146 mg/dL; CREATININE 1.2 mg/dL (0.6-1.2); GFR - MDRD 58 (>89); GLUCOSE 149 mg/dL (70-100); HDL CHOLESTEROL 40 mg/dL; LDL CHOLESTEROL,CALCULATED 74 mg/dL; LDL/HDL RATIO 1.9 (<3.6); MAGNESIUM 1.6 mg/dL (1.7-2.8); POTASSIUM 3.8 mmol/L (3.5-5.0); SODIUM 138 mmol/L (135-145); TOTAL PROTEIN 7.9 g/dL (6.7-8.2); TRIGLYCERIDES 162 mg/dL; VLDL CHOLESTEROL 32 mg/dL
[2022-05-31 12:26] LABS: ESTIMATED AVERAGE GLUCOSE 148 mg/dL (70-100); HEMOGLOBIN A1c% 6.8 % (4.27-6.07)
--- NOTE | 2022-05-31 12:38 | XRAY Report ---
PROCEDURE: Chest 2 View X-Ray INDICATIONS: ACUTE MYOCARDIA INFRACTION, PLEURAL EFFUSION ,LFT TECHNIQUE: 2 views of the chest were acquired. COMPARISON: 04/29/2022. FINDINGS: Surgical changes and devices: Sternotomy. Lungs and pleura: Moderate left pleural effusion. Mediastinum: Mediastinal contours are normal. Heart size is enlarged. Bones and chest wall: No suspicious bony abnormalities. Soft tissues appear unremarkable. IMPRESSION: Moderate left pleural effusion. Resolved perihilar opacities. Reviewed by: Myron Gonzalez on 05/31/2022 12:37 PM PDT Approved by: Myron Gonzalez on 05/31/2022 12:37 PM PDT Station ID: [id number]
[2022-05-31 13:21] LABS: CREATININE,URINE 45.6 mg/dL; MICROALBUM/CREATININE RATIO,UR 144.7 ug/mg (<30.0); MICROALBUMIN,URINE 6.6 mg/dL (0-300.0)
== END 2022-05-31 10:30 | disposition home or self-care (01) ==
LOC: DI 10:29
PROVIDERS: ATTEND Physician Assistant
DX: I21.9 Acute myocardial infarction, unspecified (principal); J90 Pleural effusion, not elsewhere classified; E87.6 Hypokalemia; I10 Essential (primary) hypertension; E78.5 Hyperlipidemia, unspecified; E11.9 Type 2 diabetes mellitus without complications
CPT/HCPCS: 36415; 80053; 80061; 82043; 82570; 83036; 83721; 83735; 84443; 85025

== ENCOUNTER 2022-06-18 07:47 | Outpatient (CLI) | payer MEDICARE, OTHER ==
[2022-06-18 08:09] LABS: CALCIUM 9.2 mg/dL (8.5-10.3); CREATININE 1.1 mg/dL (0.6-1.2)
[2022-06-18 11:50] LABS: ESTIMATED AVERAGE GLUCOSE 140 mg/dL (70-100); HEMOGLOBIN A1c% 6.5 % (4.27-6.07)
== END 2022-06-18 07:48 | disposition home or self-care (01) ==
LOC: LAB 07:47
PROVIDERS: ATTEND Physician Assistant Medical
DX: E11.9 Type 2 diabetes mellitus without complications (principal)
CPT/HCPCS: 36415; 80048; 83036

== ENCOUNTER 2022-06-25 10:12 | Outpatient (CLI) | payer MEDICARE, OTHER ==
--- NOTE | 2022-06-25 11:23 | XRAY Report ---
PROCEDURE: Chest 3 View X-Ray INDICATIONS: PLEURAL EFFUSION TECHNIQUE: 2 views of the chest were acquired. COMPARISON: None. FINDINGS: Surgical changes and devices: None. Lungs and pleura: Moderate loculated left-sided pleural effusion. Mediastinum: Mediastinal contours appear normal. Heart size is normal. Bones and chest wall: No suspicious bony lesions. Overlying soft tissues appear unremarkable. IMPRESSION: Moderate loculated left-sided pleural effusion. Reviewed by: Myron Gonzalez on 06/25/2022 11:21 AM PDT Approved by: Myorn Gonzalez on 06/25/2022 11:21 AM PDT Station ID: [id number]
== END 2022-06-25 10:13 | disposition home or self-care (01) ==
LOC: DI 10:12
PROVIDERS: ATTEND Physician Assistant Medical
DX: J90 Pleural effusion, not elsewhere classified (principal)

== ENCOUNTER 2022-07-29 09:17 | Outpatient (CLI) | payer MEDICARE, OTHER | END 2022-07-29 09:18 | disposition home or self-care (01) | LOC: LAB 09:17 | PROVIDERS: ATTEND Nurse Practitioner Family | DX: R06.09 Other forms of dyspnea (principal) | CPT/HCPCS: 36415; 83880 ==

== ENCOUNTER 2022-08-18 08:55 | Outpatient (CLI) | payer MEDICARE, OTHER ==
[2022-08-18 09:17] LABS: CALCIUM 9.4 mg/dL (8.5-10.3); CREATININE 1.3 mg/dL (0.6-1.2); POTASSIUM 4.6 mmol/L (3.5-5.0)
== END 2022-08-18 08:56 | disposition home or self-care (01) ==
LOC: LAB 08:55
PROVIDERS: ATTEND Internal Medicine
DX: I25.10 Atherosclerotic heart disease of native coronary artery without angina pectoris (principal)
CPT/HCPCS: 36415; 80048

== ENCOUNTER 2022-11-08 11:10 | Outpatient (CLI) | payer MEDICARE, OTHER ==
--- NOTE | 2022-11-08 16:40 | Ultrasound Report ---
PROCEDURE: Ext Limited Non Vascular INDICATIONS: SOFT TISSUE MASS RIGHT THIGH TECHNIQUE: Real-time scanning was performed of the right groin, with image documentation. COMPARISON: None. 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 Comment: Recommend consideration of CT of the chest, abdomen, and pelvis. Additionally, if desired, t his mass would be easily amenable to ultrasound-guided biopsy for tissue diagnosis. Reviewed by: Azam Torres MD on 11/08/2022 4:38 PM PDT Approved by: Azam Torres MD on 11/08/2022 4:38 PM PDT Station ID: [id number]
== END 2022-11-08 11:11 | disposition home or self-care (01) ==
LOC: DI 11:10
PROVIDERS: ATTEND Physician Assistant Medical
DX: R22.41 Localized swelling, mass and lump, right lower limb (principal)

== ENCOUNTER 2022-11-16 09:41 | Outpatient (CLI) | payer MEDICARE, OTHER ==
[2022-11-16 10:05] LABS: CREATININE 1.3 mg/dL (0.6-1.3)
== END 2022-11-16 09:42 | disposition home or self-care (01) ==
LOC: LAB 09:41
PROVIDERS: ATTEND Physician Assistant Medical
DX: J90 Pleural effusion, not elsewhere classified (principal)
CPT/HCPCS: 36415; 82565

== ENCOUNTER 2022-11-19 11:25 | Outpatient (CLI) | payer MEDICARE, OTHER ==
[2022-11-19] MEDS ORDERED: IOVERSOL 320 100 ML VIAL IVP ONE (15:18)
[2022-11-19] MEDS ORDERED: BARIUM SULFATE 450 ML BOTTLE PO ONE (15:20)
--- NOTE | 2022-11-19 17:20 | CT Report ---
PROCEDURE: ABDOMEN/PELVIS W INDICATIONS: SOFT TISSUE MASS CONTRAST: OPTI 320 100ML TECHNIQUE: After the administration of oral and intravenous contrast, 5 mm thick sections acquired from the diap hragms to the symphysis. 5 mm thick coronal and sagittal reformats were acquired. For radiation dos e reduction, the following was used: automated exposure control, adjustment of mA and/or kV accordin g to patient size. COMPARISON: Same-day CT chest. FINDINGS: Image quality: Excellent. Lung bases and heart: Right chest wall mass partially visualized. Please see separately dictated same -day CT chest. Post median sternotomy. Liver: Hypodensity at the segment 4 measuring 1.4 cm, (2/24). Adjacent rim calcification. Gallbladder and biliary tree: No radiopaque stones or wall thickening. No biliary dilation. Spleen: No splenomegaly. Pancreas: No pancreatic ductal dilation. Adrenals: No adrenal nodule. Kidneys and ureters: No hydronephrosis. No renal cystic lesion which requires follow up. No solid mas s. Bowel and peritoneum: No bowel distension. No pathologic free fluid. Diverticulosis. The appendix is not seen. Lymph nodes: Retrocaval node measuring 1.7 cm, (2/31). Left common iliac node measuring 1.6 cm, (2/51). Vessels: No infrarenal aortic aneurysm. PELVIS Reproductive organs: Unremarkable. Bladder: No abnormal wall thickening, accounting for underdistention. Pelvic lymph nodes: No pelvic adenopathy by size criteria. Bones: No aggressive osseous abnormality. Other: Small fat-containing inguinal hernias. Large intramuscular mass in the medial right thigh measuring 10.8 x 9.2 x 8.3 cm, (5/38 and 2/107). T he mass is heterogeneous and enhancing. IMPRESSION: 1. Large enhancing mass at the medial right thigh measuring 10.8 cm consistent with malignancy. Consi gloria ultrasound-guided biopsy. MRI with IV contrast may be helpful for further characterization. 2. Retroperitoneal adenopathy. 3. Hypodensity in segment 4 of the liver. This could represent a liver metastasis. Consider MRI liver for further characterization. Please see separately dictated same-day chest. Reviewed by: Daniel Gomez MD on 11/19/2022 5:19 PM PDT Approved by: Daniel Gomez MD on 11/19/2022 5:19 PM PDT Station ID: [id number]
--- NOTE | 2022-11-19 17:31 | CT Report ---
PROCEDURE: CHEST W INDICATIONS: SOFT TISSUE MASS CONTRAST: OPTI 320 100ML TECHNIQUE: After the administration of intravenous contrast, 1 mm axial images were acquired from the pulmonary apices through the posterior costophrenic angles. Axial 5 mm soft tissue kernel reconstructions were performed as well as 8 mm axial MIP and coronal and sagittal 5 mm reformations. For radiation dose reduction, the following was used: automated exposure control, adjustment of mA and/or kV according to patient size. COMPARISON: Same day abdomen and pelvis. FINDINGS: Image quality: Excellent. Lungs and pleura: Right upper lobe subpleural mass measuring 2.8 x 2.2 cm, (2/35). Adjacent chest wal l mass measuring 5.9 cm, (5/11). Right upper lobe pulmonary nodule measuring 0.4 cm, (3/32). Left low er lobe pulmonary nodule measuring 0.4 cm, (3/42). Minimal opacity in the left lung. Airways are brooke r. No pleural effusions. No pneumothorax. Mediastinum: Post median sternotomy. Heart size is normal. No pericardial effusion. No large vessel a bnormality. Precarinal node measuring 2.5 cm, (2/24). Chest wall and lower neck: Right thyroid nodule measuring 1.4 cm. Anterior mediastinal lymph node sean suring a 1.5 cm, (2/24). Right hilar node measuring 1.8 cm, (2/29). No axillary or supraclavicular ad enopathy by size. Bones: Right chest wall mass abutting the right 3-5 th ribs. Upper Abdomen: Thickening posterior to the left diaphragmatic renita. Hypodensity in the liver. IMPRESSION: 1. Metastatic lesion in the right chest wall/right upper lobe. 2. Metastatic mediastinal and right hilar adenopathy. Reviewed by: Daniel Gomez MD on 11/19/2022 5:30 PM PDT Approved by: Daniel Gomez MD on 11/19/2022 5:30 PM PDT Station ID: [id number]
== END 2022-11-19 11:26 | disposition home or self-care (01) ==
LOC: DI 11:25
PROVIDERS: ATTEND Physician Assistant Medical
DX: C78.1 Secondary malignant neoplasm of mediastinum (principal); C78.01 Secondary malignant neoplasm of right lung; R59.0 Localized enlarged lymph nodes
CPT/HCPCS: 71260; 74177; A9270; Q9967

== ENCOUNTER 2022-12-08 12:26 | Outpatient (CLI) | payer MEDICARE, OTHER ==
[2022-12-08] MEDS ORDERED: LIDOCAINE-MPF 1% 5 ML VIAL ONE (12:55)
[2022-12-08] MEDS ORDERED: LIDOCAINE-MPF 1% 5 ML VIAL SUBQ STA (14:09)
--- NOTE | 2022-12-08 15:27 | Ultrasound Report ---
PROCEDURE: Ultrasound-guided right side biopsy without sedation.. INDICATIONS: REPEAT RIGHT THIGH/GROIN SOFT TISSUE MASS TECHNIQUE: The indications, alternatives, benefits, risks, and complications of the procedure were e xplained to the patient. Written informed consent was obtained and placed in the chart. Continuous EKG and hemodynamic monitoring was started by trained personnel. Real-time sonography was utilized to choose the site for percutaneous right thigh biopsy. The skin w as prepped and draped in the usual sterile fashion. 1% lidocaine was infiltrated down to the site of interest. A coaxial needle was then advanced into the site of interest under direct sonographic vis ualization. A biopsy apparatus was then utilized, and core biopsies were obtained. The needle was t hen withdrawn; a bandage was applied to the biopsy site. COMPARISON: FINDINGS: Biopsy site(s): Right thigh mass Needle: Bard biopsy needle set. Number of passes: 4 Medications: 1% lidocaine for local anaesthesia. Complications: None. IMPRESSION: Successful ultrasound-guided right thigh biopsy, with pathology results pending. Reviewed by: Myron Gonzalez on 12/08/2022 3:26 PM PDT Approved by: Myron Gonzalez on 12/08/2022 3:26 PM PDT Station ID: [id number]
== END 2022-12-08 12:27 | disposition home or self-care (01) ==
LOC: DI 12:26
PROVIDERS: ATTEND Physician Assistant Medical
DX: C85.15 Unspecified B-cell lymphoma, lymph nodes of inguinal region and lower limb (principal); I96 Gangrene, not elsewhere classified
CPT/HCPCS: 20206; 88307; 88341; 88342; 88360

== ENCOUNTER 2022-12-24 13:00 | Outpatient (CLI) | payer MEDICARE, OTHER ==
[2022-12-24 13:17] LABS: BASOPHILS % (AUTO) 0.2 %; EOSINOPHILS # (AUTO) 0.1 10^3/uL (0.0-0.7); EOSINOPHILS % (AUTO) 1.1 %; HCT - HEMATOCRIT 33.5 % (42.0-52.0); HGB - HEMOGLOBIN 10.5 g/dL (14.0-18.0); LYMPHOCYTES # (AUTO) 0.5 10^3/uL (1.5-3.5); LYMPHOCYTES % (AUTO) 6.5 %; MEAN CORPUSCULAR HEMOGLOBIN 30.3 pg (27.0-31.0); MEAN CORPUSCULAR HGB CONC 31.3 g/dL (32.0-36.0); MEAN CORPUSCULAR VOLUME 96.5 fL (80.0-94.0); MEAN PLATELET VOLUME 9.9 fL (7.4-11.4); MONOCYTES # (AUTO) 0.5 10^3/uL (0.0-1.0); MONOCYTES % (AUTO) 6.1 %; NEUTROPHILS # (AUTO) 6.9 10^3/uL (1.5-6.6); NEUTROPHILS % (AUTO) 85.9 %; PLT - PLATELET COUNT 278 10^3/uL (130-450); RED BLOOD COUNT 3.47 10^6/uL (4.70-6.10); RED CELL DISTRIBUTION WIDTH 13.7 % (12.0-15.0)
[2022-12-24 13:29] LABS: % IRON SATURATION 6 % (20-50); ALBUMIN 4.1 g/dL (3.2-5.5); ALBUMIN/GLOBULIN RATIO 1.6 (1.0-2.2); ALKALINE PHOSPHATASE 133 IU/L (42-121); ALT ALANINE AMINOTRANSFERASE 22 IU/L (10-60); AST ASPARTATE AMINOTRANSFERASE 21 IU/L (10-42); BILIRUBIN,TOTAL 0.4 mg/dL (0.2-1.0); BUN - BLOOD UREA NITROGEN 23 mg/dL (6-20); CALCIUM 9.8 mg/dL (8.5-10.3); CARBON DIOXIDE - CO2 28 mmol/L (21-32); CHLORIDE 103 mmol/L (101-111); CHOL/HDL RATIO 4.1 (<5.0); CHOLESTEROL 172 mg/dL; CREATININE 1.5 mg/dL (0.6-1.3); GFR - MDRD 45 (>89); GLUCOSE 180 mg/dL (74-104); HDL CHOLESTEROL 42 mg/dL; IRON 21 ug/dL (50-212); LDL CHOLESTEROL,CALCULATED 98 mg/dL; LDL/HDL RATIO 2.3 (<3.6); POTASSIUM 3.9 mmol/L (3.5-4.5); SODIUM 139 mmol/L (135-145); TOTAL IRON BINDING CAPACITY 340 ug/dL (250-450); TOTAL PROTEIN 6.7 g/dL (6.4-8.9); TRANSFERRIN 243 mg/dL (203-362); TRIGLYCERIDES 158 mg/dL (48-352); VLDL CHOLESTEROL 32 mg/dL
[2022-12-24 13:56] LABS: ESTIMATED AVERAGE GLUCOSE 128 mg/dL (70-100); HEMOGLOBIN A1c% 6.1 % (4.27-6.07)
[2022-12-24 14:03] LABS: FERRITIN 14.5 ng/mL (23.9-336.2)
== END 2022-12-24 13:01 | disposition home or self-care (01) ==
LOC: LAB 13:00
PROVIDERS: ATTEND Physician Assistant Medical
DX: E11.9 Type 2 diabetes mellitus without complications (principal); D64.9 Anemia, unspecified
CPT/HCPCS: 36415; 80053; 80061; 82728; 83036; 83540; 83721; 84466; 85025

== ENCOUNTER 2023-01-04 10:57 | Outpatient (CLI) | payer MEDICARE, OTHER ==
[2023-01-04 11:25] LABS: CALCIUM 10.6 mg/dL (8.5-10.3); CREATININE 1.4 mg/dL (0.6-1.3); POTASSIUM 4.3 mmol/L (3.5-4.5)
== END 2023-01-04 10:58 | disposition home or self-care (01) ==
LOC: LAB 10:57
PROVIDERS: ATTEND Internal Medicine
DX: I50.22 Chronic systolic (congestive) heart failure (principal)
CPT/HCPCS: 36415; 80048

== ENCOUNTER 2023-02-04 11:55 | Emergency (ER) | payer MEDICARE, OTHER ==
[2023-02-04] MEDS ORDERED: SODIUM CHLORIDE 0.9% 1,000 ML IV STA ×2 (12:15→12:54)
[2023-02-04 12:47] LABS: BASOPHILS % (AUTO) 2.8 %; HCT - HEMATOCRIT 30.6 % (42.0-52.0); HGB - HEMOGLOBIN 9.6 g/dL (14.0-18.0); LYMPHOCYTES % (AUTO) 13.9 %; MEAN CORPUSCULAR HEMOGLOBIN 28.5 pg (27.0-31.0); MEAN CORPUSCULAR HGB CONC 31.4 g/dL (32.0-36.0); MEAN CORPUSCULAR VOLUME 90.8 fL (80.0-94.0); MEAN PLATELET VOLUME 11.6 fL (7.4-11.4); MONOCYTES % (AUTO) 44.4 %; NEUTROPHILS % (AUTO) 38.9 %; PLT - PLATELET COUNT 116 10^3/uL (130-450); RED BLOOD COUNT 3.37 10^6/uL (4.70-6.10); RED CELL DISTRIBUTION WIDTH 14.6 % (12.0-15.0)
[2023-02-04] MEDS ORDERED: DIPHENOX/ATROPINE 2.5/0.025 MG TABLET PO STA (12:54)
[2023-02-04] MEDS ORDERED: LACTATED RINGERS 1,000 ML IV STA (12:54)
--- NOTE | 2023-02-04 12:57 | ED Physician Documentation ---
PD HPI NVD - Stated complaint Stated Complaint: WEAKNESS/DEHYDRATED - Chief complaint Chief Complaint: Abd Pain - History obtained from History obtained from: Patient - Additonal information Additional information: 82-year-old gentleman with high-grade B-cell lymphoma and history of [place] in April with CABG and EF of 30%, A-fib on amiodarone and Xarelto. A week ago had his second round of chemotherapy. After the first round he did develop 3 days of diarrhea and weakness but is having a worse time of this go with several days worth of diarrhea and profound fatigue. No fevers, nausea, or abdominal pain. Imodium has not been helpful with his diarrhea. He feels quite dehydrated. He did just start Levaquin prescribed by his oncologist for anticipated neutropenia. PD PAST MEDICAL HISTORY - Past Medical History Cardiovascular: Hypertension, High cholesterol, Coronary artery disease Respiratory: None Endocrine/Autoimmune: Type 2 diabetes GI: GERD, Hiatal hernia, Colon polyps : Benign prostate hypertrophy, Frequency, Other HEENT: None Psych: None, Claustrophobia Musculoskeletal: Osteoarthritis Derm: Other - Past Surgical History Past Surgical History: Yes General: Appendectomy Cardiovascular: Coronary stent - Present Medications Home Medications: Ambulatory Orders Medication Instructions Recorded Confirmed amLODIPine [Norvasc] 5 mg PO BID 03/22/19 01/12/23 Losartan [Cozaar] 50 mg PO BID 09/17/21 01/12/23 Metoprolol Tartrate [Lopressor] 25 mg PO BID 09/17/21 01/12/23 Omeprazole 40 mg PO DAILY #30 cap 12/10/22 01/12/23 Atorvastatin Calcium 40 mg PO DAILY 12/15/22 01/12/23 Empagliflozin [Jardiance] 10 mg PO DAILY 12/15/22 01/12/23 Lidocaine/Prilocain 2.5% Cream 1 each TP DAILY #1 kit 12/22/22 [Emla 2.5% Cream] Ondansetron Odt [Zofran Odt] 4 mg TL Q6H PRN #90 tablet 12/22/22 Prochlorperazine Maleate 5 mg PO Q6H PRN #90 tablet 12/22/22 [Compazine] predniSONE [Prednisone] 100 mg PO DAILY #60 tablet 12/22/22 levoFLOXacin [Levaquin] 500 mg PO ONCE 7 Days #14 tablet 01/12/23 - Allergies Allergies/Adverse Reactions: Allergies Allergy/AdvReac Type Severity Reaction Status Date / Time milk AdvReac gas Verified 09/17/21 08:17 - Social History Does the pt smoke?: No Smoking Status: Never smoker Does the pt drink ETOH?: Yes Does the pt have substance abuse?: No - Immunizations Immunizations are current?: Yes - POLST Patient has POLST: No POLST Status: Full Code PD ED PE NORMAL - Vitals Vital signs reviewed: Yes - General General: Alert and oriented X 3, No acute distress - HEENT HEENT: Other (Dry mucous membranes, no thrush) - Neck Neck: Supple, no meningeal sign, No bony TTP - Cardiac Cardiac: RRR, No murmur, Other (CABG scar and port left upper chest) - Respiratory Respiratory: No respiratory distress, Clear bilaterally - Abdomen Abdomen: Soft, Non tender - Derm Derm: No rash - Neuro Neuro: Alert and oriented X 3, Normal speech Results - Vitals Vitals: Vital Signs - 24 hr 02/04/23 02/04/23 02/04/23 12:11 17:41 18:51 Temperature 36.2 C L 37.7 C Heart Rate 87 68 Respiratory 18 20 Rate Blood Pressure 89/35 L 124/45 L O2 Saturation 98 96 02/04/23 20:09 Temperature Heart Rate 80 Respiratory 17 Rate Blood Pressure 142/49 H O2 Saturation 98 Oxygen O2 Source Room air - EKG (time done) 1224 EKG releavant findings:: EKG personally interpreted by author of this note. Relevant findings are: Rate: Rate (enter#) (84) Rhythm: NSR, LAE Intervals: RBBB, Other (LAFB) QRS: Normal Ischemia: No: ST elevation c/w ischemia, ST depression Compare to prior EKG: Changed from prior EKG (Overall the morphology is similar but actually improved with respect to ischemic changes compared with April of this year, at that time though he was critically ill with an [place].) Computer interpretation: Agree with computer - Labs Labs: Laboratory Tests 02/04/23 02/04/23 02/04/23 12:36 12:36 12:39 WBC 0.4 L* RBC 3.37 L Hgb 9.6 L Hct 30.6 L MCV 90.8 MCH 28.5 MCHC 31.4 L RDW 14.6 Plt Count 116 L MPV 11.6 H Neut # (Auto) Not Reportable Lymph # (Auto) Not Reportable Sauk # (Auto) Not Reportable Eos # (Auto) Not Reportable Baso # (Auto) Not Reportable Absolute Nucleated RBC Not Reportable Total Counted 50 Band Neuts % (Manual) 2 Abnorm Lymph % (Manual) 0 Metamyelocytes % 6 H Nucleated RBC % Not Reportable Neutrophils # (Manual) 0.1 L* Lymphocytes # (Manual) 0.1 L Monocytes # (Manual) 0.2 Eosinophils # (Manual) 0.0 Basophils # (Manual) 0.0 Differential Comment MANUAL DIFFERENTIAL Platelet Estimate DECREASED (<130,000) Platelet Morphology NORMAL APPEARANCE RBC Morph Micro Appear 1+ ANISOCYTOSIS Sodium 134 L Potassium 3.7 Chloride 100 L Carbon Dioxide 25 Anion Gap 9.0 BUN 10 Creatinine 1.5 H Estimated GFR (MDRD) 45 L Glucose 142 H Lactic Acid 2.1 Calcium 8.9 Total Bilirubin 2.1 H AST 124 H ALT 110 H Alkaline Phosphatase 496 H Total Protein 5.8 L Albumin 3.8 Globulin 2.0 L Albumin/Globulin Ratio 1.9 Urine Color Urine Clarity Urine pH Ur Specific [place] Urine Protein Urine Glucose (UA) Urine Ketones Urine Occult Blood Urine Nitrite Urine Bilirubin Urine Urobilinogen Ur Leukocyte Esterase Urine RBC Urine WBC Ur Epithelial Cells Ur Squamous Epith Cells Urine Bacteria Urine Casts Urine Sperm Urine Culture Comments SARS-CoV-2 (PCR) 02/04/23 02/04/23 02/04/23 15:18 16:14 16:15 WBC RBC Hgb Hct MCV MCH MCHC RDW Plt Count MPV Neut # (Auto) Lymph # (Auto) Sauk # (Auto) Eos # (Auto) Baso # (Auto) Absolute Nucleated RBC Total Counted Band Neuts % (Manual) Abnorm Lymph % (Manual) Metamyelocytes % Nucleated RBC % Neutrophils # (Manual) Lymphocytes # (Manual) Monocytes # (Manual) Eosinophils # (Manual) Basophils # (Manual) Differential Comment Platelet Estimate Platelet Morphology RBC Morph Micro Appear Sodium Potassium Chloride Carbon Dioxide Anion Gap BUN Creatinine Estimated GFR (MDRD) Glucose Lactic Acid 1.6 Calcium Total Bilirubin AST ALT Alkaline Phosphatase Total Protein Albumin Globulin Albumin/Globulin Ratio Urine Color DARK YELLOW Urine Clarity CLEAR Urine pH 6.0 Ur Specific [place] 1.015 Urine Protein 100 H Urine Glucose (UA) >=1000 H Urine Ketones NEGATIVE Urine Occult Blood TRACE-INTA Urine Nitrite NEGATIVE Urine Bilirubin SMALL H Urine Urobilinogen 4 H Ur Leukocyte Esterase NEGATIVE Urine RBC 0-5 Urine WBC 4-5 Ur Epithelial Cells RARE Transitional Ur Squamous Epith Cells FEW Squamous Urine Bacteria Rare Urine Casts 0-2 Granular Casts Urine Sperm PRESENT Urine Culture Comments NOT INDICATED SARS-CoV-2 (PCR) NOT DETECTED PD Medical Decision Making - ED course ED course: 82-year-old gentleman undergoing treatment for lymphoma presents with diarrhea and dehydration. He is modestly hypotensive in triage down to 89/35 but the rest of his vital signs are unremarkable and he is well-appearing with a benign belly. Work-up in the emergency department demonstrates neutropenia which is not unexpected at this point but he also had evidence of biliary obstruction on labs. As such this was followed with a CT which to my eye shows cholecystitis. Given his current health issues, I do not think any surgeon would be willing to do a cholecystectomy and as such at approximately 4 PM the decision was made to transfer to a higher level of care for consideration of cholecystostomy versus ERCP if appropriate. Blood cultures were drawn and he was started on Zosyn. A few minutes before 5 PM I discussed the case by phone with GI paris Storey, Dr. Ramires who agrees with transfer to a higher level of care and defers to hospitalist for admission. They are paging the hospitalist. Presented the case to Dr. Migdalia Rosenberg a hospitalist at approximately 5:25 PM and she would like us to clarify with their surgeons whether they should be the admitting service or she should. Subsequently approximately 7 PM I was notified that Dr. Rosenberg was ACcepting him. Apparently she had discussed with the surgeon. Cobras are completed. [facility] does not currently have a bed and it is felt that he will likely be excepted in the morning IN transfer. Departure - Departure Disposition: 02 Transfer Acute Care Hosp Clinical Impression: Cholecystitis, Lymphoma, Neutropenia, Biliary obstruction Condition: Serious Forms: PCP List
[2023-02-04 13:00] LABS: WHITE BLOOD COUNT 0.4 x10^3/uL (4.8-10.8)
[2023-02-04 13:01] LABS: ABNORMAL LYMPHS % (MANUAL) 0 %
[2023-02-04 13:02] LABS: ALBUMIN 3.8 g/dL (3.2-5.5); ALBUMIN/GLOBULIN RATIO 1.9 (1.0-2.2); BILIRUBIN,TOTAL 2.1 mg/dL (0.2-1.0); CALCIUM 8.9 mg/dL (8.5-10.3); CREATININE 1.5 mg/dL (0.6-1.3); POTASSIUM 3.7 mmol/L (3.5-4.5); TOTAL PROTEIN 5.8 g/dL (6.4-8.9)
[2023-02-04 13:03] LABS: LACTIC ACID, VENOUS 2.1 mmol/L (0.5-2.2)
[2023-02-04 13:26] LABS: BAND NEUTROPHILS % (MANUAL) 2 %; LYMPHOCYTES # (MANUAL) 0.1 10^3/uL (1.5-3.5); LYMPHOCYTES % (MANUAL) 30 %; METAMYELOCYTES % (MANUAL) 6 %; MONOCYTES # (MANUAL) 0.2 10^3/uL (0.0-1.0); NEUTROPHILS # (MANUAL) 0.1 10^3/uL (1.5-6.6)
[2023-02-04 13:28] LABS: PLATELET MORPHOLOGY NORMAL APPEARANCE (NORMAL); RBC MORPHOLOGY (MULTIPLE) 1+ ANISOCYTOSIS (NORMAL)
[2023-02-04 13:29] LABS: DIFFERENTIAL COMMENT MANUAL DIFFERENTIAL; PLATELET ESTIMATE, MANUAL DECREASED (<130,000) (NORMAL)
[2023-02-04 15:47] LABS: GLUCOSE, URINE (UA) >=1000 mg/dL (NEGATIVE); KETONES,URINE (UA) NEGATIVE (NEGATIVE); LEUKOCYTE ESTERASE, URINE NEGATIVE (NEGATIVE); NITRITE,URINE NEGATIVE (NEGATIVE); OCCULT BLOOD,URINE TRACE-INTA (NEGATIVE); PROTEIN,URINE 100 mg/dL (NEGATIVE); UROBILINOGEN,URINE 4 E.U./dL (NORMAL)
[2023-02-04 16:02] LABS: BACTERIA,URINE Rare /HPF (None Seen); BILIRUBIN,URINE SMALL (NEGATIVE); CLARITY,URINE CLEAR (CLEAR); EPITHELIAL CELLS,UR RARE Transitional /HPF (<= Few); ICTOTEST,URINE POSITIVE; RBC,URINE 0-5 /HPF (0-5); SQUAMOUS EPITHELIAL CELL,UR FEW Squamous (<= Few)
[2023-02-04] MEDS ORDERED: PIPERACILLIN/TAZOBACTAM 3.375 GM in SODIUM CHLORIDE 0.9% MINIBAG 100 ML IV STA (16:02)
[2023-02-04 16:03] LABS: CASTS, URINE 0-2 Granular Casts /LPF; SPERM,URINE PRESENT
--- NOTE | 2023-02-04 16:58 | CT Report ---
PROCEDURE: ABDOMEN/PELVIS W INDICATIONS: IV only, elevated liver enzymes, known lymphoma CONTRAST: 100ml omni 300 TECHNIQUE: After the administration of intravenous contrast, 5 mm thick sections acquired from the diaphragms to the symphysis. 5 mm thick coronal and sagittal reformats were acquired. For radiation dose reducti on, the following was used: automated exposure control, adjustment of mA and/or kV according to yovani ent size. COMPARISON: CT abdomen and pelvis dated 11/19/2022, PET/CT dated 12/24/2022. FINDINGS: Image quality: Excellent. Lung bases and heart: Unremarkable. Liver: There is a partially calcified segment 4 left lobe liver lesion measuring 1.4 cm which is an a milton that has increased activity on outside PET/CT. Gallbladder and biliary tree: Development of marked inflammation and edema circumferentially of the g allbladder wall, highly suspicious for acute cholecystitis. Gallbladder wall measures 12 mm in diamet er. Spleen: No splenomegaly. Pancreas: No pancreatic ductal dilation. Adrenals: No adrenal nodule. Kidneys and ureters: No hydronephrosis. No renal cystic lesion which requires follow up. No solid mas s. Bowel and peritoneum: Sigmoid diverticulosis. Mild diffuse sigmoid wall thickening is increased daryl red to previous studies. Question an element of distal colitis. Lymph nodes: A retrocaval lymph node which has increased activity on PET CT has decreased in size. On the image 31/2 of November 19, 2022 study, it measured 1.7 x 3.4 cm. It currently measures 1.3 x 2.4 cm. Reference current image 27/2. Vessels: No infrarenal aortic aneurysm. PELVIS Reproductive organs: Unremarkable. Bladder: No abnormal wall thickening, accounting for underdistension. Pelvic lymph nodes: No pelvic adenopathy by size criteria. Bones: No aggressive osseous abnormality. Other: No significant ventral or inguinal hernia. Previously there was an enhancing large right media l upper thigh mass measuring 10.8 cm in diameter. It may still be present, but appears significantly smaller. A superficial right inguinal lymph node which is FDG avid has decreased in size. On the prev ious PET/CT from December 24, it measured approximately 1.7 cm on image 278/4. It currently contains s ignificantly more fat, and measures 0.9 cm. IMPRESSION: 1. Acute cholecystitis. There is marked gallbladder wall thickening and edema. 2. Right upper thigh mass and right inguinal and retrocaval adenopathy have decreased in size, consis tent with response to therapy. The segment 4 liver lesion may be stable or decreased in size. 3. Sigmoid diverticulitis. Question a degree of distal colitis. Reviewed by: Azam Torres MD on 02/04/2023 4:57 PM PST Approved by: Azam Torres MD on 02/04/2023 4:57 PM PST Station ID: [id number]
[2023-02-04] MEDS ORDERED: iohexoL-300 100 ML VIAL IVP ONE (17:12)
[2023-02-04] MEDS ORDERED: ONDANSETRON 4 MG/2 ML VIAL IVP PRN (21:26)
[2023-02-04] MEDS ORDERED: ACETAMINOPHEN 500 MG TABLET PO PRN (21:26)
[2023-02-04] MEDS: PIPERACILLIN/TAZOBACTAM 3.375 GM in SODIUM CHLORIDE 0.9% MINIBAG 100 ML IV SCH (22:36)
[2023-02-05] MEDS: PIPERACILLIN/TAZOBACTAM 3.375 GM in SODIUM CHLORIDE 0.9% MINIBAG 100 ML IV SCH ×3 (03:55→16:01)
[2023-02-05 05:50] LABS: HCT - HEMATOCRIT 24.8 % (42.0-52.0); HGB - HEMOGLOBIN 7.6 g/dL (14.0-18.0); LYMPHOCYTES # (AUTO) 0.1 10^3/uL (1.5-3.5); LYMPHOCYTES % (AUTO) 13.3 %; MEAN CORPUSCULAR HEMOGLOBIN 27.8 pg (27.0-31.0); MEAN CORPUSCULAR HGB CONC 30.6 g/dL (32.0-36.0); MEAN CORPUSCULAR VOLUME 90.8 fL (80.0-94.0); MEAN PLATELET VOLUME 11.9 fL (7.4-11.4); MONOCYTES # (AUTO) 0.3 10^3/uL (0.0-1.0); MONOCYTES % (AUTO) 27.6 %; NEUTROPHILS % (AUTO) 54.1 %; PLT - PLATELET COUNT 92 10^3/uL (130-450); RED BLOOD COUNT 2.73 10^6/uL (4.70-6.10); RED CELL DISTRIBUTION WIDTH 14.8 % (12.0-15.0)
[2023-02-05 06:03] LABS: ALBUMIN 3.1 g/dL (3.2-5.5); ALBUMIN/GLOBULIN RATIO 1.5 (1.0-2.2); BILIRUBIN,TOTAL 0.8 mg/dL (0.2-1.0); CALCIUM 8.4 mg/dL (8.5-10.3); CREATININE 1.2 mg/dL (0.6-1.3); POTASSIUM 3.5 mmol/L (3.5-4.5); TOTAL PROTEIN 5.2 g/dL (6.4-8.9)
[2023-02-05 06:40] LABS: NEUTROPHILS # (AUTO) 0.5 10^3/uL (1.5-6.6)
[2023-02-05] MEDS ORDERED: PANTOPRAZOLE 40 MG TABLET PO SCH (07:00)
[2023-02-05 07:20] LABS: DIFFERENTIAL COMMENT MANUAL=AUTO DIFF; PLATELET ESTIMATE, MANUAL DECREASED (<130,000) (NORMAL); PLATELET MORPHOLOGY NORMAL APPEARANCE (NORMAL)
[2023-02-05 15:10] VITALS: O2SAT 100
[2023-02-05 15:51] LABS: BASOPHILS % (AUTO) 2.1 %; EOSINOPHILS % (AUTO) 2.6 %; HCT - HEMATOCRIT 27.8 % (42.0-52.0); HGB - HEMOGLOBIN 8.4 g/dL (14.0-18.0); LYMPHOCYTES % (AUTO) 10.9 %; MEAN CORPUSCULAR HEMOGLOBIN 27.3 pg (27.0-31.0); MEAN CORPUSCULAR HGB CONC 30.2 g/dL (32.0-36.0); MEAN CORPUSCULAR VOLUME 90.3 fL (80.0-94.0); MONOCYTES % (AUTO) 17.2 %; NEUTROPHILS % (AUTO) 66.2 %; PLT - PLATELET COUNT 107 10^3/uL (130-450); RED BLOOD COUNT 3.08 10^6/uL (4.70-6.10); RED CELL DISTRIBUTION WIDTH 14.9 % (12.0-15.0)
[2023-02-05 15:55] LABS: WHITE BLOOD COUNT 1.9 x10^3/uL (4.8-10.8)
[2023-02-05 15:56] LABS: ABNORMAL LYMPHS % (MANUAL) 0 %
[2023-02-05 16:18] LABS: BAND NEUTROPHILS % (MANUAL) 12 %; DIFFERENTIAL COMMENT MANUAL DIFFERENTIAL; EOSINOPHILS # (MANUAL) 0.1 10^3/uL (0-0.7); LYMPHOCYTES # (MANUAL) 0.2 10^3/uL (1.5-3.5); LYMPHOCYTES % (MANUAL) 9 %; METAMYELOCYTES % (MANUAL) 1 %; MONOCYTES # (MANUAL) 0.4 10^3/uL (0.0-1.0); NEUTROPHILS # (MANUAL) 1.2 10^3/uL (1.5-6.6); PLATELET ESTIMATE, MANUAL DECREASED (<130,000) (NORMAL); PLATELET MORPHOLOGY 1+ GIANT PLATELETS (NORMAL); RBC MORPHOLOGY (MULTIPLE) NORMAL APPEARANCE (NORMAL)
--- NOTE | 2023-02-05 17:07 | ED Physician Documentation ---
ED Addendum - Addendum Addendum: 02/05/23 17:02 Obed Lazar is an 82-year-old male who is being treated for B-cell lymphoma and he is responding well to treatment and has had lots of side effects including significant neutropenia and nausea vomiting and diarrhea. He has had enough diarrhea that he has become dehydrated and he came to the emergency department for evaluation and treatment. He has been treated for the dehydration and feels much improved. His pain is is resolved as well. A CT scan was done during his stay here and shows a marked change in his gallbladder appearance from November of this year. It does look like his gallbladder is significantly inflamed today. He does not have pain in the right upper quadrant on physical examination. He did present to the emergency department with neutropenia with an ANC of 40. He has been started on IV antibiotic and has been on been fluid overnight his diarrhea has resolved and he feels much improved. I did evaluate the patient with the thought that he may be able to go home instead of a transfer to a tertiary hospital and after review of the patient's imaging I thought this was not a particularly good idea. He may even need percutaneous drainage of his gallbladder. Despite the lack of symptomatology associated his gallbladder is dramatically changed from its appearance on CT scanning done 2 months ago.It does appear the patient has responded to treatment with all of the areas previously imaged as abnormal showing improvement. 02/05/23 17:04
[2023-02-05 17:55] VITALS: BP 112/50
== END 2023-02-05 18:30 | disposition short-term general hospital (02) ==
LOC: ED 11:55
DX: K81.0 Acute cholecystitis (principal); K83.1 Obstruction of bile duct; E86.0 Dehydration; C85.10 Unspecified B-cell lymphoma, unspecified site; D70.9 Neutropenia, unspecified; I95.9 Hypotension, unspecified; Z79.899 Other long term (current) drug therapy; Z20.822 Contact with and (suspected) exposure to COVID-19
CPT/HCPCS: 36415; 74177; 80053; 81001; 83605; 85025; 87040; 87635; 93005; 96361; 96365; 96366; 99285; A9270; J7120; Q9967; 87086

== ENCOUNTER 2023-02-05 18:30 | Outpatient (CLI) | payer MEDICARE, OTHER | END 2023-02-05 18:31 | disposition short-term general hospital (02) | LOC: EMS 18:30 | PROVIDERS: ATTEND Emergency Medicine | DX: K81.9 Cholecystitis, unspecified (principal) | CPT/HCPCS: A0425; A0428 ==

== ENCOUNTER 2023-02-10 11:07 | Outpatient (CLI) | payer MEDICARE, OTHER ==
[2023-02-10 11:19] LABS: BASOPHILS % (AUTO) 0.9 %; EOSINOPHILS % (AUTO) 3.2 %; HCT - HEMATOCRIT 32.9 % (42.0-52.0); HGB - HEMOGLOBIN 9.8 g/dL (14.0-18.0); LYMPHOCYTES % (AUTO) 3.5 %; MEAN CORPUSCULAR HEMOGLOBIN 27.4 pg (27.0-31.0); MEAN CORPUSCULAR HGB CONC 29.8 g/dL (32.0-36.0); MEAN CORPUSCULAR VOLUME 91.9 fL (80.0-94.0); MEAN PLATELET VOLUME 10.4 fL (7.4-11.4); MONOCYTES % (AUTO) 5.9 %; PLT - PLATELET COUNT 277 10^3/uL (130-450); RED BLOOD COUNT 3.58 10^6/uL (4.70-6.10); RED CELL DISTRIBUTION WIDTH 15.7 % (12.0-15.0); WHITE BLOOD COUNT 14.8 x10^3/uL (4.8-10.8)
[2023-02-10 11:29] LABS: SLIDE REVIEW? Indicated
[2023-02-10 11:32] LABS: CALCIUM 8.8 mg/dL (8.5-10.3); CREATININE 1.2 mg/dL (0.6-1.3); POTASSIUM 3.5 mmol/L (3.5-4.5)
[2023-02-10 11:52] LABS: ABNORMAL LYMPHS % (MANUAL) 0 %; BAND NEUTROPHILS % (MANUAL) 0 %
[2023-02-10 11:54] LABS: EOSINOPHILS # (MANUAL) 0.7 10^3/uL (0-0.7); LYMPHOCYTES # (MANUAL) 0.4 10^3/uL (1.5-3.5); LYMPHOCYTES % (MANUAL) 3 %; METAMYELOCYTES % (MANUAL) 3 %; MONOCYTES # (MANUAL) 0.9 10^3/uL (0.0-1.0); MYELOCYTES % (MANUAL) 2 %
[2023-02-10 11:56] LABS: DIFFERENTIAL COMMENT MANUAL DIFFERENTIAL; PLATELET ESTIMATE, MANUAL NORMAL (130-450,000) (NORMAL); PLATELET MORPHOLOGY NORMAL APPEARANCE (NORMAL); RBC MORPHOLOGY (MULTIPLE) 1+ ANISOCYTOSIS (NORMAL)
== END 2023-02-10 11:08 | disposition home or self-care (01) ==
LOC: LAB 11:07
PROVIDERS: ATTEND Physician Assistant Medical
DX: I10 Essential (primary) hypertension (principal); E87.6 Hypokalemia; I48.91 Unspecified atrial fibrillation; E11.9 Type 2 diabetes mellitus without complications; D64.9 Anemia, unspecified; I21.9 Acute myocardial infarction, unspecified; N40.0 Benign prostatic hyperplasia without lower urinary tract symptoms
CPT/HCPCS: 36415; 80048; 85025

== ENCOUNTER 2023-05-25 05:04 | Inpatient (IN) | payer MEDICARE, OTHER ==
--- NOTE | 2023-05-25 05:17 | ED Physician Documentation ---
PD HPI ABD PAIN - Stated complaint Stated Complaint: ABD PX - History obtained from History obtained from: Patient - History of Present Illness Timing - onset: How many days ago (3) Timing - duration: Days (3) Timing - details: Gradual onset (The patient was having less appetite with nausea but only 1 episode of emesis when he tried to make himself vomit. Otherwise feeling of distended stomach and cramping that significantly increased last night and overnight to severe pain. No stool output for the last 3 days.) Pain level max: 9 Pain level now: 9 Quality: Cramping, Aching, Pain Location: All over / everywhere Radiation: Lower back Improved by: Position Worsened by: Eating Associated symptoms: Nausea, Diarrhea (he had soft/wtaery stools for a day or so prior to cramps starting and too 3 imodium with good effect, then started the cramping without stools which worsened last night.). No: Fever, Vomiting (he tried to make himself vomit once with only small effect.) Similar symptoms before: Has not had sx before Recently seen: Clinic (recent to Oncology for Lymphoma. Reportedly cancer free post chemo. 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 He states he did not have any intestinal involvement.) Review of Systems Constitutional: reports: Weight Loss (60 lbs over 3-4 months from the chemo and poor appetite.). denies: Fever, Chills Nose: denies: Rhinorrhea / runny nose, Congestion Throat: denies: Sore throat Respiratory: denies: Cough GI: reports: Abdominal Pain, Nausea, Constipation. denies: Bloody / black stool : denies: Dysuria, Frequency PD PAST MEDICAL HISTORY - Past Medical History Cardiovascular: Hypertension, High cholesterol, Coronary artery disease Respiratory: None Endocrine/Autoimmune: Type 2 diabetes GI: GERD, Hiatal hernia, Colon polyps : Benign prostate hypertrophy, Frequency, Other HEENT: None Psych: None, Claustrophobia Musculoskeletal: Osteoarthritis Derm: Other - Past Surgical History Past Surgical History: Yes General: Appendectomy Cardiovascular: Coronary stent - Present Medications Home Medications: Ambulatory Orders Medication Instructions Recorded Confirmed amLODIPine [Norvasc] 5 mg PO BID 03/22/19 03/30/23 Atorvastatin Calcium 40 mg PO DAILY 12/15/22 03/30/23 Empagliflozin [Jardiance] 10 mg PO DAILY 12/15/22 03/30/23 Lidocaine/Prilocain 2.5% Cream 1 each TP DAILY #1 kit 12/22/22 03/30/23 [Emla 2.5% Cream] Ondansetron Odt [Zofran Odt] 4 mg TL Q6H PRN #90 tablet 12/22/22 03/30/23 Prochlorperazine Maleate 5 mg PO Q6H PRN #90 tablet 12/22/22 03/30/23 [Compazine] predniSONE [Prednisone] 100 mg PO DAILY #60 tablet 12/22/22 03/30/23 Amiodarone [Pacerone] 200 mg PO DAILY 02/05/23 03/30/23 Buspirone HCl 10 mg PO BID 02/05/23 03/30/23 Metoprolol Succinate [Toprol Xl] 25 mg PO DAILY 02/05/23 03/30/23 Omeprazole Magnesium 20 mg PO DAILY 02/05/23 03/30/23 Rivaroxaban [Xarelto] 20 mg PO QDDINNER 02/05/23 03/30/23 levoFLOXacin [Levaquin] 500 mg PO DAILY 02/05/23 03/30/23 lisinopriL [Zestril] 5 mg PO DAILY 02/05/23 03/30/23 - Allergies Allergies/Adverse Reactions: Allergies Allergy/AdvReac Type Severity Reaction Status Date / Time milk AdvReac gas Verified 03/30/23 08:57 - Social History Does the pt smoke?: No Smoking Status: Never smoker Does the pt drink ETOH?: Yes Does the pt have substance abuse?: No - Immunizations Immunizations are current?: Yes - POLST Patient has POLST: No POLST Status: Full Code PD ED PE NORMAL - Vitals Vital signs reviewed: Yes - General General: Alert and oriented X 3, Well developed/nourished, Other (appears in significant waves of pain. ) - Neck Neck: Supple, no meningeal sign, No adenopathy - Cardiac Cardiac: RRR, No murmur - Respiratory Respiratory: Clear bilaterally - Abdomen Abdomen: Soft, No organomegaly, Other (general tenderness to palpation. Somewhat general distention. ). No: Normal bowel sounds (increased) - Rectal Rectal: Deferred - Back Back: No CVA TTP - Derm Derm: Normal color - Extremities Extremities: No edema, No calf tenderness / cord - Neuro Neuro: Alert and oriented X 3, No motor deficit, Normal speech Results - Vitals Vitals: Vital Signs - 24 hr 05/25/23 05/25/23 05:16 06:37 Temperature 36.3 C L Heart Rate 91 71 Respiratory 18 18 Rate Blood Pressure 117/60 157/54 H O2 Saturation 100 100 Oxygen O2 Source Room air - Labs Labs: Laboratory Tests 05/25/23 05/25/23 05:30 05:30 WBC 11.0 H RBC 3.76 L Hgb 11.4 L Hct 37.6 L MCV 100.0 H MCH 30.3 MCHC 30.3 L RDW 20.8 H Plt Count 278 MPV 10.9 Neut # (Auto) 9.5 H Lymph # (Auto) 0.7 L [place] # (Auto) 0.7 Eos # (Auto) 0.0 Baso # (Auto) 0.0 Absolute Nucleated RBC 0.00 Nucleated RBC % 0.0 Manual Slide Review Indicated Platelet Estimate NORMAL (130-450,000) Platelet Morphology NORMAL APPEARANCE RBC Morph Micro Appear 2+ ANISOCYTOSIS Sodium 139 Potassium 4.2 Chloride 102 Carbon Dioxide 26 Anion Gap 11.0 BUN 25 H Creatinine 1.3 Estimated GFR (MDRD) 53 L Glucose 156 H Calcium 10.3 Magnesium 1.7 Total Bilirubin 0.5 AST 13 ALT 16 Alkaline Phosphatase 94 Total Protein 7.2 Albumin 4.7 Globulin 2.5 Albumin/Globulin Ratio 1.9 Lipase < 10 L - Rads (name of study) abd/pelvic CT Relevant Findings:: Prelim report reviewed, EMP independent interpretation of test (small bowel obstruction with transition left lower quadrant. No masses. No evidence of lymphoma. ) PD Medical Decision Making - ED course Complexity details: reviewed results (White count and blood count are good. Chemistry panel did not show any significant abnormalities. CT scan showed a small bowel obstruction with transition in the left lower quadrant. No masses identified.), re-evaluated patient (Significant improvement in the pain with ondansetron, Toradol, Dilaudid. He was also given IV fluids. He is more comfortable at this time. Still a moderate distention with hyperactive bowel sounds.), considered differential (Generally tender with some distention. Consideration of diverticulitis versus obstruction. Prior appendectomy so not that. Not particularly tender in gallbladder area. Will get labs and CT. He was given IV fluids and medication for pain and nausea.), d/w patient ED course: At this point post radiology report of the CT and discussion with the patient regarding admission and medical treatment for the bowel obstruction, I would place the patient in the hospital for further treatment. However at this point we do not have beds available. Pending discharges for the day. We will have the patient here in the ER until beds available and then consult the hospitalist and surgery. Care is given over to Dr. Dias who is oncoming and given verbal handoff. Departure - Departure Disposition: ED Place in Observation Clinical Impression: Abdominal pain, Small bowel obstruction Condition: Stable Record reviewed to determine appropriate education?: Yes
[2023-05-25] MEDS ORDERED: iohexoL-300 100 ML VIAL ONE (05:39)
[2023-05-25 05:41] LABS: BASOPHILS % (AUTO) 0.3 %; EOSINOPHILS % (AUTO) 0.2 %; HCT - HEMATOCRIT 37.6 % (42.0-52.0); HGB - HEMOGLOBIN 11.4 g/dL (14.0-18.0); LYMPHOCYTES # (AUTO) 0.7 10^3/uL (1.5-3.5); LYMPHOCYTES % (AUTO) 5.9 %; MEAN CORPUSCULAR HEMOGLOBIN 30.3 pg (27.0-31.0); MEAN CORPUSCULAR HGB CONC 30.3 g/dL (32.0-36.0); MEAN PLATELET VOLUME 10.9 fL (7.4-11.4); MONOCYTES # (AUTO) 0.7 10^3/uL (0.0-1.0); MONOCYTES % (AUTO) 6.6 %; NEUTROPHILS # (AUTO) 9.5 10^3/uL (1.5-6.6); NEUTROPHILS % (AUTO) 86.5 %; PLT - PLATELET COUNT 278 10^3/uL (130-450); RED BLOOD COUNT 3.76 10^6/uL (4.70-6.10); RED CELL DISTRIBUTION WIDTH 20.8 % (12.0-15.0)
[2023-05-25 05:45] LABS: SLIDE REVIEW? Indicated
[2023-05-25] MEDS: KETOROLAC 15 MG/ML VIAL IVP STA (05:47)
[2023-05-25] MEDS: SODIUM CHLORIDE 0.9% 1,000 ML IV STA (05:48)
[2023-05-25] MEDS: HYDROmorphone 1 MG/ML CARPUJECT IVP STA (05:48)
[2023-05-25] MEDS: ONDANSETRON 4 MG/2 ML VIAL IVP STA (05:48)
[2023-05-25 06:10] LABS: ALBUMIN 4.7 g/dL (3.2-5.5); ALBUMIN/GLOBULIN RATIO 1.9 (1.0-2.2); ALKALINE PHOSPHATASE 94 IU/L (42-121); ALT ALANINE AMINOTRANSFERASE 16 IU/L (10-60); AST ASPARTATE AMINOTRANSFERASE 13 IU/L (10-42); BILIRUBIN,TOTAL 0.5 mg/dL (0.2-1.0); BUN - BLOOD UREA NITROGEN 25 mg/dL (6-20); CALCIUM 10.3 mg/dL (8.5-10.3); CARBON DIOXIDE - CO2 26 mmol/L (21-32); CHLORIDE 102 mmol/L (101-111); CREATININE 1.3 mg/dL (0.6-1.3); GFR - MDRD 53 (>89); GLUCOSE 156 mg/dL (74-104); LIPASE < 10 U/L (11-82); MAGNESIUM 1.7 mg/dL (1.7-2.3); POTASSIUM 4.2 mmol/L (3.5-4.5); SODIUM 139 mmol/L (135-145); TOTAL PROTEIN 7.2 g/dL (6.4-8.9)
[2023-05-25] MEDS: iohexoL-300 100 ML VIAL IVP ONE (06:36)
[2023-05-25 06:38] LABS: PLATELET ESTIMATE, MANUAL NORMAL (130-450,000) (NORMAL); PLATELET MORPHOLOGY NORMAL APPEARANCE (NORMAL); RBC MORPHOLOGY (MULTIPLE) 2+ ANISOCYTOSIS (NORMAL)
--- NOTE | 2023-05-25 07:59 | CT Report ---
PROCEDURE: Abdomen/Pelvis W INDICATIONS: abd pain 2 days, worsening cramping CONTRAST: Omni 300, 100mls TECHNIQUE: After the administration of intravenous contrast, a CT scan of the abdomen and pelvis was performed. Images were recorded and evaluated at appropriate window settings. Reformats: coronal and sagittal. F or radiation dose reduction, the following was used: automated exposure control, adjustment of mA and /or kV according to patient size. COMPARISON: March 15, 2023 FINDINGS: Image quality: Diagnostic Lower chest: Scattered scarring, overall similar to prior heart size is within normal limits. Increas ed thickened area in the right middle lobe. Mildly patulous and thick walled distal esophagus, nonspe cific. Liver: Segment 4 liver lesion with hyperdensity again seen. Gallbladder and biliary system: Unremarkable, nondilated Pancreas: Possible ductal ectasia versus subcentimeter cystic lesion at the head, attention on follow -up. Spleen: No splenomegaly Adrenals: No discrete nodule Kidneys: No hydronephrosis. Subcentimeter lesions are too small to characterize, usually cysts. Vessels and lymph nodes: The main portal vein is patent. No abdominal aortic aneurysm. No pathologic lymph nodes are seen by size criteria. 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 Bowel and peritoneum: The stomach is mildly distended. Moderate distention of the proximal small eleuterio l, with transition to normal and underdistended bowel in the left lower quadrant. No evidence of acti ve radiation in the colon. There is no pathologic ascites. A small amount mesenteric fat stranding ad jacent to the distended bowel loops may be reactive. Body wall: Small fat containing inguinal hernias. Pelvis: Bladder is unremarkable. Prostate heterogeneous and not well evaluated on this study. Bones: Previously described right upper thigh mass is not well seen on today's study. Degenerative osseous changes. IMPRESSION: Small bowel obstruction. Moderate small bowel distention. The transition to underdistended bowel is i n the left lower quadrant. Recommend future dedicated oncologic surveillance imaging for history of lymphoma. No pathologic lymp hadenopathy by size criteria. Similar calcified hypodensity in segment 4 the liver. Partially visualized increased right middle lobe opacity, possibly segmental atelectasis/mucous plugg ing. Attention on follow-up. Other findings as above. Reviewed by: Fransico Manriquez MD on 05/25/2023 7:58 AM PDT Approved by: Fransico Manriquez MD on 05/25/2023 7:58 AM PDT Station ID: [id number]
[2023-05-25 08:31] LABS: BILIRUBIN,URINE NEGATIVE (NEGATIVE); GLUCOSE, URINE (UA) >=1000 mg/dL (NEGATIVE); KETONES,URINE (UA) NEGATIVE (NEGATIVE); LEUKOCYTE ESTERASE, URINE NEGATIVE (NEGATIVE); NITRITE,URINE NEGATIVE (NEGATIVE); OCCULT BLOOD,URINE NEGATIVE (NEGATIVE); PH,URINE 5.5 PH (5.0-7.5); PROTEIN,URINE NEGATIVE (NEGATIVE); UROBILINOGEN,URINE 0.2 (NORMAL) E.U./dL (NORMAL)
[2023-05-25 08:34] LABS: CLARITY,URINE CLEAR (CLEAR)
[2023-05-25] MEDS ORDERED: HYDROmorphone 1 MG/ML CARPUJECT IVP PRN (08:45)
[2023-05-25] MEDS ORDERED: ONDANSETRON 4 MG/2 ML VIAL IVP PRN (08:45)
[2023-05-25] MEDS ORDERED: ACETAMINOPHEN 325 MG TABLET PO PRN (09:25)
[2023-05-25] MEDS ORDERED: ONDANSETRON ODT 4 MG TABLET TL PRN (09:25)
[2023-05-25] MEDS ORDERED: SODIUM CHLORIDE FLUSH 0.9% 10 ML SYRINGE IVP PRN (09:25)
[2023-05-25] MEDS ORDERED: oxyCODONE 5 MG TABLET PO PRN (09:25)
[2023-05-25] MEDS ORDERED: HYDROmorphone 0.5 MG/0.5 ML SYRINGE IVP PRN (09:29)
[2023-05-25] MEDS: LACTATED RINGERS 1,000 ML IV STA (09:35)
[2023-05-25] MEDS: SODIUM CHLORIDE 0.9% 1,000 ML IV SCH (10:40)
--- NOTE | 2023-05-25 17:08 | HISTORY & PHYSICAL EXAMINATION ---
Chief Complaint - Chief Complaint Chief Complaint: Abdominal Pain History of Present Illness - Admitted From Admitted From:: ER - History Obtained From Records Reviewed: yes History obtained from: Obed Child - History of Present Illness HPI Comment/Other: Mr. Child, 83 yr-old male was admitted post ER visit today due to Abd px for the past 3 days. He states that he was instructed to take loperamide by the treatment team where he is receiving chemo treatment for lymphoma if he was experiencing watery stool. He states that watery stool is common side affect of treatment and was instructed take 2 tablets of loperamide and then 1 tablet ther e after up to a total of 12 tablets. After taking the third tablet his bowel movements and flatulence ceased. He reports being distended, with abdominal tenderness associated w/ a cramping pain (10). He noted that the pain gradually increased, would radiate to his back and was improved(momentarily) after consuming ensure. Leaning forward would exacerbate issue. As of today he says his symptoms have significantly improved and he has started to have flatulence (with boisterous flatulence he experiences a sharp slapping pain in left lower colon, this has been an ongoing issue prior to onset of current CC), belching, bowel movement sensation with the urge to defecate but has yet to do so. Upon reflection he states that he believes his prolonged sitting for chemo-treatment played a part in his current issue. He Mentioned that his girlfriend was coming tomorrow and would have previous pet scan with her to show us the report. 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 (Has been living with girlfriend thes last couple of months ) Social History Notes: 31 year smoke history (quite @ age 42). EOTH 25 yrs (6-8 oz daily), quite 2.5 yrs ago. Denies recreational drug use - Substance History Use: Uses substance without health or social issues: NONE Abuse: Recurrent use of substance despite neg consequences: NONE Dependence: Experiences withdrawal or developed tolerances: NONE - POLST Patient has POLST: No POLST Status: Full Code Meds/Allgy - Home Medications Home Medications: Ambulatory Orders Medication Instructions Recorded Confirmed amLODIPine [Norvasc] 5 mg PO BID 03/22/19 05/25/23 Atorvastatin Calcium 40 mg PO DAILY 12/15/22 05/25/23 Empagliflozin [Jardiance] 10 mg PO DAILY 12/15/22 05/25/23 Lidocaine/Prilocain 2.5% Cream 1 each TP DAILY #1 kit 12/22/22 03/30/23 [Emla 2.5% Cream] Ondansetron Odt [Zofran Odt] 4 mg TL Q6H PRN #90 tablet 12/22/22 03/30/23 Prochlorperazine Maleate 5 mg PO Q6H PRN #90 tablet 12/22/22 03/30/23 [Compazine] predniSONE [Prednisone] 100 mg PO DAILY #60 tablet 12/22/22 03/30/23 Amiodarone [Pacerone] 200 mg PO DAILY 02/05/23 05/25/23 Buspirone HCl 10 mg PO BID 02/05/23 05/25/23 Metoprolol Succinate [Toprol Xl] 25 mg PO DAILY 02/05/23 05/25/23 Omeprazole Magnesium 20 mg PO DAILY 02/05/23 05/25/23 Rivaroxaban [Xarelto] 20 mg PO QDDINNER 02/05/23 03/30/23 levoFLOXacin [Levaquin] 500 mg PO DAILY 02/05/23 03/30/23 lisinopriL [Zestril] 5 mg PO DAILY 02/05/23 05/25/23 - Allergies Allergies/Adverse Reactions: Allergies Allergy/AdvReac Type Severity Reaction Status Date / Time milk AdvReac gas Verified 03/30/23 08:57 Review of Systems - Constitutional Constitutional: reports: Poor appetite (Associated with chemo treatment), Weight loss (60Lbs over 3-4 months related to chemo treatment). denies: Fever, Chills, Diaphoresis - Eyes Eyes: denies: Pain - Ears, Nose & Throat Ears, Nose & Throat: denies: Nasal discharge, Sore throat - Cardiovascular Cariovascular: denies: Irregular heart rate, Chest pain, Lightheadedness - Respiratory Respiratory: denies: Cough, Wheezing, Pleuritic pain - Gastrointestinal Gastrointestinal: reports: Constipation (Has not defecated in the past 3 days but has recenlty started to feel urge to), Other (Started experiencing flatulance and belching today). denies: Abdominal pain, Abdominal distention, Diarrhea, Black stools, Bloody stools, Nausea, Vomiting, Bloating - Genitourinary Genitourinary: denies: Dysuria, Frequency - Endocrine Endocrine: denies: Polyuria, Polydypsia, Polyphagia - Hematologic/Lymphatic Hematologic/Lymphatic: reports: Bruising (Slight bruising on patients upper extremities) Prior Level of Functionality: Normal daily activities and outings with partner Exam - Vital Signs Reviewed Vital Signs: Yes Vital Signs: Vital Signs x48h Temp Pulse Resp BP Pulse Ox 05/25/23 16:00 36.5 C 70 20 121/57 L 100 05/25/23 10:50 36.6 C 69 16 133/64 H 98 - Physical Exam General Appearance: positive: No acute distress, Alert Eyes Bilateral: positive: Normal inspection, PERRL, Other (Ectropion bilaterally) ENT: positive: No signs of dehydration Neck: positive: Nml inspection, No JVD Respiratory: positive: Chest non-tender, No respiratory distress, Breath sounds nml. negative: Wheezes, Rales, Rhonchi Cardiovascular: positive: Regular rate & rhythm, No murmur, No gallop Peripheral Pulses: positive: 2+ (Right Radial), 1+ (Left Radial) Abdomen: positive: No organomegaly, Nml bowel sounds, No distention, Tenderness (Discomfort difusely disseminated across upper abdomen), Other (Belching). negative: Guarding, Rebound Back: positive: Nml inspection Skin: positive: Other (Actinic Purpura) Extremities: positive: Non-tender, No pedal edema Neurologic/Psychiatric: positive: Oriented x3, Motor nml, Sensation nml Sepsis Event Note (H) - Evaluation Current Stage of Sepsis: Ruled out Conclusion/Plan - Problem List (1) Abdominal pain Conclusion/Plan: Likely due to loperamide DC the loperamide Resting the bowel (allowing only sips of liquids and no food by mouth), Providi ng intravenous fluids Qualifiers: Abdominal location: generalized Qualified Code(s): R10.84 - Generalized abdominal pain (2) HTN (hypertension) Conclusion/Plan: Likely due to past EOTH and smoking Hx Manage with hypertensive meds. Monitor vitals Qualifiers: Hypertension type: primary hypertension Qualified Code(s): I10 - Essential (primary) hypertension (3) CAD (coronary artery disease) Conclusion/Plan: Likely associated with HTN. Prior HX of smoking and ETOH Manage with HTN medication Qualifiers: Coronary Disease-Associated Artery/Lesion type: [place] artery [place] vs. 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 insulin use status Diabetes mellitus complication status: without complication Qualified Code(s): E11.9 - Type 2 diabetes mellitus without complications (5) GERD (gastroesophageal reflux disease) Conclusion/Plan: Likely related to past EOTH and smoking HX Mange with home meds - Lab Results Lab results reviewed: Yes Fish Bones: 05/25/23 05:30 05/25/23 05:30 - EKG Results EKG Interpreted Independently: No Core Measures - Anticipated LOS I expect patient to be DC'd or transferred within 96 hours.: Yes - DVT/VTE - Prophylaxis VTE/DVT Device ordered at admit?: No - Stroke - Rehab Assessment Rehab services assessment to be ordered?: No - AMI - Statin at Admit Aspirin Prescribed on Admit: No
[2023-05-25] MEDS: SODIUM CHLORIDE FLUSH 0.9% 10 ML SYRINGE IVP SCH (22:20)
[2023-05-26 05:08] LABS: BASOPHILS % (AUTO) 0.6 %; EOSINOPHILS # (AUTO) 0.1 10^3/uL (0.0-0.7); EOSINOPHILS % (AUTO) 1.5 %; HCT - HEMATOCRIT 29.3 % (42.0-52.0); HGB - HEMOGLOBIN 8.6 g/dL (14.0-18.0); LYMPHOCYTES # (AUTO) 0.4 10^3/uL (1.5-3.5); LYMPHOCYTES % (AUTO) 10.8 %; MEAN CORPUSCULAR HEMOGLOBIN 30.2 pg (27.0-31.0); MEAN CORPUSCULAR HGB CONC 29.4 g/dL (32.0-36.0); MEAN CORPUSCULAR VOLUME 102.8 fL (80.0-94.0); MEAN PLATELET VOLUME 10.6 fL (7.4-11.4); MONOCYTES # (AUTO) 0.4 10^3/uL (0.0-1.0); MONOCYTES % (AUTO) 11.7 %; NEUTROPHILS # (AUTO) 2.5 10^3/uL (1.5-6.6); NEUTROPHILS % (AUTO) 75.1 %; PLT - PLATELET COUNT 165 10^3/uL (130-450); RED BLOOD COUNT 2.85 10^6/uL (4.70-6.10); RED CELL DISTRIBUTION WIDTH 20.2 % (12.0-15.0); WHITE BLOOD COUNT 3.3 x10^3/uL (4.8-10.8)
[2023-05-26 05:12] LABS: SLIDE REVIEW? Indicated
[2023-05-26 05:24] LABS: CALCIUM 8.9 mg/dL (8.5-10.3); POTASSIUM 4.1 mmol/L (3.5-4.5)
[2023-05-26 05:37] LABS: PLATELET ESTIMATE, MANUAL NORMAL (130-450,000) (NORMAL); PLATELET MORPHOLOGY NORMAL APPEARANCE (NORMAL); WBC MORPHOLOGY (MULTIPLE) NORMAL APPEARANCE (NORMAL)
[2023-05-26 05:38] LABS: RBC MORPHOLOGY (MULTIPLE) 4+ ANISOCYTOSIS (NORMAL)
[2023-05-26] MEDS: ENOXAPARIN 40 MG/0.4 ML SYRINGE SUBQ SCH (09:44)
--- NOTE | 2023-05-26 10:42 | XRAY Report ---
PROCEDURE: Abdomen 1 V INDICATIONS: sbo followup, is bowel distended TECHNIQUE: One view of the abdomen acquired. COMPARISON: CT abdomen and pelvis dated 05/25/2023 FINDINGS: Surgical changes and devices: Partially imaged median sternotomy wires. Bowel: Redemonstration of diffusely scattered air-filled loops of dilated small bowel seen throughout the abdomen.. Soft tissues: No suspicious abdominal calcifications. Visualized solid organ contours appear normal in size. Bones: No suspicious bony lesions. IMPRESSION: Persistent dilated loops of air-filled bowel compatible with small bowel obstruction. Accounting for differences in imaging technique, no significant changes appreciated. Reviewed by: Aamir Brady MD on 05/26/2023 9:40 AM NEYDA Approved by: Aamir Brady MD on 05/26/2023 9:40 AM NEYDA Station ID: [id number]
--- NOTE | 2023-05-26 12:40 | PROVIDER PROGRESS NOTE ---
Subjective - Prog Note Date Prog Note Date: 05/26/23 Prog Note Time: 12:35 - Subjective Pt reports feeling: No change Subjective: Mr. Child expresses feeling the sensation to defecate but has still yet to have a bowel mvmt He has cont. to experience flatus Reports taken mineral oil (which significantly aided him in having bowl mvmts) over the past 10 yrs but stopped 2 wks ago due to chemo and diarrhea He mentioned feel general weakness (due to loss of muscle tone from chemo treatment), was able to make it 2 loops around pod today. He has a goal of walking for 30 min Current Medications - Current Medications Current Medications: Active Medications Acetaminophen (Acetaminophen 325 Mg Tablet) 650 mg PO Q4HR PRN PRN Reason: Pain 1 to 4, or Fever Enoxaparin Sodium (Enoxaparin 40 Mg/0.4 Ml Syringe) 40 mg SUBQ DAILY [facility] Last Admin: 05/26/23 09:44 Dose: Not Given Hydromorphone HCl (Hydromorphone 0.5 Mg/0.5 Ml Syringe) 0.5 mg IVP Q2H PRN PRN Reason: Severe Pain (Level 7-10) Sodium Chloride (Normal Saline 0.9%) 1,000 mls @ 100 mls/hr IV .Q10H [facility] Last Admin: 05/26/23 06:34 Dose: 100 mls/hr Ondansetron HCl (Ondansetron Odt 4 Mg Tablet) 4 mg TL Q6HR PRN PRN Reason: Nausea / Vomiting Ondansetron HCl (Ondansetron 4 Mg/2 Ml Vial) 4 mg IVP Q6HR PRN PRN Reason: Nausea / Vomiting Oxycodone HCl (Oxycodone 5 Mg Tablet) 5 mg PO Q4HR PRN PRN Reason: Pain 5 to 7 Sodium Chloride (Sodium Chloride Flush 0.9% 10 Ml Syringe) 10 ml IVP PRN PRN PRN Reason: NEEDED PER PROVIDER ORDERS Sodium Chloride (Sodium Chloride Flush 0.9% 10 Ml Syringe) 10 ml IVP 0100,0900,1700 [facility] Last Admin: 05/26/23 09:44 Dose: Not Given amLODIPine [Norvasc] 5 mg PO BID 03/22/19 Atorvastatin Calcium 40 mg PO DAILY 12/15/22 Empagliflozin [Jardiance] 10 mg PO DAILY 12/15/22 Amiodarone [Pacerone] 200 mg PO DAILY 02/05/23 Buspirone HCl 10 mg PO BID 02/05/23 Metoprolol Succinate [Toprol Xl] 25 mg PO DAILY 02/05/23 Omeprazole Magnesium 20 mg PO DAILY 02/05/23 Rivaroxaban [Xarelto] 20 mg PO QDDINNER 02/05/23 levoFLOXacin [Levaquin] 500 mg PO DAILY 02/05/23 lisinopriL [Zestril] 5 mg PO DAILY 02/05/23 Lidocaine/Prilocain 2.5% Cream [Emla 2.5% Cream] See Rx Instructions .ROUTE .COMPLEX 05/26/23 predniSONE [Prednisone] See Rx Instructions .ROUTE .COMPLEX 05/26/23 Objective - Vital Signs/Intake & Output Reviewed Vital Signs: Yes Vital Signs: Vital Signs x48h Temp Pulse Resp BP Pulse Ox 05/26/23 08:00 36.6 C 61 18 124/56 L 100 05/26/23 05:09 37.0 C 60 16 106/46 L 98 Intake & Output: Intake & Output 05/23/23 05/24/23 05/25/23 05/26/23 23:59 23:59 23:59 23:59 Intake Total 2090.833 996.667 Output Total 425 Balance 2090.833 571.667 - Objective General Appearance: positive: No acute distress, Alert. negative: Anxious Eyes Bilateral: positive: Normal inspection, PERRL, Other (Ectropion) Neck: positive: Nml inspection, No JVD Respiratory: positive: Chest non-tender, No respiratory distress, Breath sounds nml. negative: Wheezes, Rales, Rhonchi Cardiovascular: positive: No murmur, No gallop. negative: JVD present Abdomen: positive: Non-tender, Nml bowel sounds, No distention. negative: Guarding, Rebound Skin: positive: Color nml, No rash Extremities: positive: No pedal edema Neurologic/Psychiatric: positive: Oriented x3, Motor nml, Sensation nml, Weakness - Lab Results Fish Bones: 05/26/23 04:55 05/26/23 04:55 Other Labs: Lab Results x24hrs 03/14/24 03/14/24 03/14/24 Range/Units 04:55 04:55 04:55 WBC 3.3 L (4.8-10.8) x10^3/uL RBC 2.85 L (4.70-6.10) 10^6/uL Hgb 8.6 L (14.0-18.0) g/dL Hct 29.3 L (42.0-52.0) % MCV 102.8 H (80.0-94.0) fL MCH 30.2 (27.0-31.0) pg MCHC 29.4 L (32.0-36.0) g/dL RDW 20.2 H (12.0-15.0) % Plt Count 165 (130-450) 10^3/uL MPV 10.6 (7.4-11.4) fL Neut # (Auto) 2.5 (1.5-6.6) 10^3/uL Lymph # (Auto) 0.4 L (1.5-3.5) 10^3/uL [place] # (Auto) 0.4 (0.0-1.0) 10^3/uL Eos # (Auto) 0.1 (0.0-0.7) 10^3/uL Baso # (Auto) 0.0 (0.0-0.1) 10^3/uL Absolute Nucleated RBC 0.00 x10^3/uL Nucleated RBC % 0.0 /100WBC Manual Slide Review Indicated WBC Morphology NORMAL APPEARANCE (NORMAL) Platelet Estimate NORMAL (130-450,000) (NORMAL) Platelet Morphology NORMAL APPEARANCE (NORMAL) RBC Morph Micro Appear 4+ ANISOCYTOSIS (NORMAL) Sodium 141 (135-145) mmol/L Potassium 4.1 (3.5-4.5) mmol/L Chloride 111 (101-111) mmol/L Carbon Dioxide 25 (21-32) mmol/L Anion Gap 5.0 L (6-13) BUN 19 (6-20) mg/dL Creatinine 1.0 (0.6-1.3) mg/dL Estimated GFR (MDRD) 71 L (>89) Glucose 94 (74-104) mg/dL Calcium 8.9 (8.5-10.3) mg/dL Vitamin B12 661 (180-914) pg/mL Folate 10.0 (5.90 - >24.8) ng/mL ABX Reporting Has patient been on IV antibiotics over the past 48 hours?: No Sepsis Event Note (H) - Evaluation Current Stage of Sepsis: Ruled out Assessment/Plan - Problem List (1) Abdominal pain Impression: Conclusion/Plan: Likely due to taken loperamide in attempt to rectify watery diarrhea DC the loperamide Rested the bowel (allowing only sips of liquids and no food by mouth) and Providing intravenous fluids has not yielded in bowel mvmt Will perform KUB x-ray to reevaluate for potential source of blockage Patient has nml bowel sounds and is flatulating, plan on slowly reintroduce soft foods Qualifiers: Abdominal location: generalized Qualified Code(s): R10.84 - Generalized abdominal pain (2) HTN (hypertension) Conclusion/Plan: Essential HTN Manage with hypertensive meds (Amlodopine 5mg PO BID and Lisinopril 5mg PO daily). Continue to monitor vitals Qualifiers: Hypertension type: primary hypertension Qualified Code(s): I10 - Essential (primary) hypertension (3) CAD (coronary artery disease) Conclusion/Plan: Likely associated with HTN. Prior HX of smoking and ETOH Manage with home HTN medication (atorvastatin 40mg PO daily and Amiodarone 200mg PO daily) Qualifiers: Coronary Disease-Associated Artery/Lesion type: [place] artery [place] vs. 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 (He had 30 Lb "16%" wt loss in 6 months) nutrition consult dietary supplement (ensure 3 x day) Qualifiers: Abdominal location: generalized Qualified Code(s): R10.84 - Generalized abdominal pain
[2023-05-26] MEDS: ONDANSETRON 4 MG/2 ML VIAL IVP PRN (17:44)
[2023-05-26] MEDS: DIATR MEGLU/DIATRIZOATE SODIUM 120 ML BOTTLE PO ONE (17:52)
[2023-05-27 04:58] LABS: BASOPHILS % (AUTO) 0.5 %; EOSINOPHILS # (AUTO) 0.1 10^3/uL (0.0-0.7); EOSINOPHILS % (AUTO) 1.9 %; HCT - HEMATOCRIT 28.8 % (42.0-52.0); HGB - HEMOGLOBIN 8.8 g/dL (14.0-18.0); LYMPHOCYTES # (AUTO) 0.4 10^3/uL (1.5-3.5); LYMPHOCYTES % (AUTO) 10.1 %; MEAN CORPUSCULAR HEMOGLOBIN 31.1 pg (27.0-31.0); MEAN CORPUSCULAR HGB CONC 30.6 g/dL (32.0-36.0); MEAN CORPUSCULAR VOLUME 101.8 fL (80.0-94.0); MEAN PLATELET VOLUME 9.9 fL (7.4-11.4); MONOCYTES # (AUTO) 0.6 10^3/uL (0.0-1.0); MONOCYTES % (AUTO) 15.4 %; NEUTROPHILS # (AUTO) 2.7 10^3/uL (1.5-6.6); NEUTROPHILS % (AUTO) 71.8 %; PLT - PLATELET COUNT 165 10^3/uL (130-450); RED BLOOD COUNT 2.83 10^6/uL (4.70-6.10); RED CELL DISTRIBUTION WIDTH 19.9 % (12.0-15.0); WHITE BLOOD COUNT 3.8 x10^3/uL (4.8-10.8)
[2023-05-27 05:12] LABS: CALCIUM 8.7 mg/dL (8.5-10.3); CREATININE 0.8 mg/dL (0.6-1.3); POTASSIUM 3.9 mmol/L (3.5-4.5)
[2023-05-27 07:46] VITALS: BP 125/59; O2SAT 100
--- NOTE | 2023-05-27 11:20 | PHARMACY PROGRESS NOTE ---
- Best Possible Medication History Admit Date and Time: 05/27/23 0739 Processed by: Pharmacy Medications reviewed in ED?: Yes Medication History completed: Yes Patient Interview: Pt unable to participate Secondary Source(s): Physician records, Pharmacy records, Insurance records, Previous admit records As the person ultimately responsible for medication therapy, providers are able to order a medication from an existing home medication list in [facility] via the "Reconcile Routine" prior to Confirmation of that medication by application support lead. Such practice is discouraged except when the physician, in their clinical judgm ent, deems that a medical need exists for a medication without regard to previous use.
--- NOTE | 2023-05-27 11:45 | Discharge Plan ---
Discharge Plan Problem Reviewed?: Yes Disposition: Home, Self Care Condition: Stable Diet: Regular (low residue) Activity Restrictions: Activity as Tolerated Shower Restrictions: No Driving Restrictions: No Instruction Topics: Diet Low Residue Health Concerns: You are successfully undergoing therapy for lymphoma. I spoke to your oncologist and your tumor burden is "melting away" with your current regimen. You have completed 6 cycles and are about to get a PET scan for restaging. Unfortunately you developed increasing abdominal pain and distention in the last few days. You came to the emergency room and was found to have a partial small bowel obstruction. You have had previous abdominal surgery so we think you have developed adhesions or scar tissue from previous abdominal surgery as a cause of the obstruction. We are not seeing a volvulus which is an internal twisting of the bowel. We are not seeing tumors. Radiations can sometimes cause scarring but you said you have never had radiation to your abdomen. We observed you with no intention of operating on you. You responded to intravenous fluids for hydration, intravenous pain medicine and intravenous nausea medicine. I then gave you Gastrografin. That had good result with a bowel movement and less distention. You have tolerated 2 meals and have no nausea or distention. You are now stable to go home. Plan of Treatment: I would like you to go on a low residue diet temporarily. Low residue means low fiber. I believe that you were eating lots of fruits and vegetables, not drinking as much water and you have stopped your mineral oil in the weeks leading to this current partial obstruction. Go back to using either olive oil or flaxseed oil on a daily basis. Please see your primary care provider for follow-up for continuity of care in the next 1 to 2 weeks. Care Goals: At this point you are seeking to be cured of your lymphoma. And you will continue seeing Dr. Noah Amaro. Assessment: Patient is alert, oriented to person, place, time and situation. Good insight. Promises to follow through on follow-up. No Smoking: If you smoke, Please STOP! Call for help. Follow-up with: Brooke Simon PA-C [Provider Admit Priv/Credential] -
--- NOTE | 2023-05-28 07:59 | DISCHARGE SUMMARY ---
"Discharge Summary Admit Date: 05/25/23 Discharge Date: 05/27/23 Discharging Provider: Amanda Hall MD Primary Care Provider: KATRIN Hidalgo Code Status: Attempt Resuscitation Condition at Discharge: Stable Discharge Disposition: 01 Home, Self Care - DIAGNOSES Discharge Diagnoses with Status of Each Condition: 1. Abdominal pain 2. Ileus 3. Hypertension 4. History of coronary artery disease 5. Type 2 diabetes mellitus, without long-term use of insulin, without complications 6. GERD 7. Severe protein calorie malnutrition 8. On antineoplastic chemotherapy - HPI History of Present Illness: Mr. Child, 83 yr-old male was admitted post ER visit today due to Abd px for the past 3 days. He states that he was instructed to take loperamide by the treatment team where he is receiving chemo treatment for lymphoma if he was experiencing watery stool. He states that watery stool is common side affect of treatment and was instructed take 2 tablets of loperamide and then 1 tablet there after up to a total of 12 tablets. After taking the third tablet his bowel movements and flatulence ceased. He reports being distended, with abdominal tenderness associated w/ a cramping pain (9/10). He noted that the pain gradually increased, would radiate to his back and was improved(momentarily) after consuming ensure. Leaning forward would exacerbate issue. As of today he says his symptoms have significantly improved and he has started to have flatulence (with boisterous flatulence he experiences a sharp slapping pain in left lower colon, this has been an ongoing issue prior to onset of current CC), belching, bowel movement sensation with the urge to defecate but has yet to do so. Upon reflection he states that he believes his prolonged sitting for chemo-treatment played a part in his current issue. He Mentioned that his girlfriend was coming tomorrow and would have previous pet scan with her to show us the report. - Past Medical History Cardiovascular: reports: Hypertension, High cholesterol, Coronary artery disease Respiratory: reports: None Neuro: reports: None Endocrine/Autoimmune: reports: Type 2 diabetes GI: reports: GERD, Hiatal hernia, Colon polyps TECHNOLOGY APPLICATIONS CONSULTANT: reports: None : reports: Benign prostate hypertrophy, Frequency, Other HEENT: reports: None Psych: reports: None, Claustrophobia Musculoskeletal: reports: Osteoarthritis Derm: reports: Other MRSA Hx?: No - Past Surgical History General: reports: Appendectomy (13 yrs old with no complications ), Other (Prostatectomy 20 yrs ago with no complications.) Cardiovascular: reports: Coronary stent - CONSULTS | PROCEDURES Procedures: Abdomen pelvis CT with stomach mildly distended. Moderate distention of the proximal small bowel with transition to normal and under distended bowel in the left lower quadrant. No evidence of active radiation of the colon. There is no pathologic ascites. Small amount of mesenteric fat stranding adjacent to the distended bowel loops may be reactive. Small fat-containing inguinal hernias. Previously described right upper thigh mass is not well-seen on today's study. Abdomen x-ray May 25 with persistent dilated loops of air-filled bowel compatible with small bowel obstruction. No significant change appreciated taking to account different radiological techniques when compared to May 24 CT. - HOSPITAL COURSE Hospital Course: Patient was placed n.p.o. except for ice chips. Did not need an NG tube. Had flatus the first day but still continue to have distended abdomen with no bowel movement by the second day. I offered him a Gastrografin challenge. Explained to him the mechanism of action. He was amenable to doing that and by the morning of the third day the patient had excellent results with a large bowel movement. He was immediately started on clear liquids and tolerated that. Then had a full lunch tolerated diet. And was stable to go home. General surgery was curb sided and they were aware the patient was in the hospital but he did not need a general surgical consult nor did he needed intervention. The case was discussed with his oncologist, Jorge Amaro. Dr. Amaro feels the patient is doing very well with regards to treatment of his lymphoma. His treatment regimen is working very well and he is approaching BONITA status. In discussing with the patient was doing he had decreased the amount of daily laxatives that he took. He also was not drinking very much water. And in regards to trying to improve his diet because of severe protein calorie malnutrition had increased the amount of dietary fiber intake. I think that it is a combination of dietary change with decreased water intake that resulted in partial ileus or partial small bowel obstruction in a gentleman who had previous adhesions. We talked about his diet. How to improve water intake, decrease fiber intake at this time. Try a low residue diet temporarily. Be aware that he has quite a bit of malnutrition as a result of his chemotherapy. Asking him to follow-up with his primary care provider. And he will follow-up with his oncologist on a routine basis. He is discharged in stable condition. Temperature is 36.7. Heart rate 62. Blood pressure 125/59. Respirations 18. 100% on room air. 6 foot tall elderly gentleman, 83 kg. Alopecia. Dry mucosa on admission resolved by discharge. Lungs are clear. Regular rate and rhythm. And abdomen that was initially distended and bloated but nontender. Now abdomen has decompressed, normal bowel sounds, nontender. Extremities without edema. Neurologically he is an alert and oriented gentleman. Oriented to person, place, time and situation. Can get himself out of his bed from a supine to sitting to standing position and go to the bathroom without any assist. Greater than 30 minutes was spent coordinating discharge This document was made in part using voice recognition software. While efforts are made to proofread this document, sound alike and grammatical errors may occur. - ALLERGIES Allergies/Adverse Reactions: Allergies Allergy/AdvReac Type Severity Reaction Status Date / Time milk AdvReac gas Verified 03/30/23 08:57 - MEDICATIONS Home Medications: Ambulatory Orders Medication Instructions Recorded Confirmed amLODIPine [Norvasc] 5 mg PO BID 03/22/19 05/25/23 Atorvastatin Calcium 40 mg PO DAILY 12/15/22 05/25/23 Empagliflozin [Jardiance] 10 mg PO DAILY 12/15/22 05/25/23 Ondansetron Odt [Zofran Odt] 4 mg TL Q6H PRN #90 tablet 12/22/22 03/30/23 Prochlorperazine Maleate 5 mg PO Q6H PRN #90 tablet 12/22/22 03/30/23 [Compazine] Amiodarone [Pacerone] 200 mg PO DAILY 02/05/23 05/25/23 Buspirone HCl 10 mg PO BID 02/05/23 05/25/23 Metoprolol Succinate [Toprol Xl] 25 mg PO DAILY 02/05/23 05/25/23 Omeprazole Magnesium 20 mg PO DAILY 02/05/23 05/25/23 Rivaroxaban [Xarelto] 20 mg PO QDDINNER 02/05/23 03/30/23 levoFLOXacin [Levaquin] 500 mg PO DAILY 02/05/23 03/30/23 lisinopriL [Zestril] 5 mg PO DAILY 02/05/23 05/25/23 Lidocaine/Prilocain 2.5% Cream See Rx Instructions .ROUTE .COMPLEX 05/26/23 05/26/23 [Emla 2.5% Cream] predniSONE [Prednisone] See Rx Instructions .ROUTE .COMPLEX 05/26/23 05/26/23 - LABS Result Diagrams: 05/27/23 04:42 05/27/23 04:42 - SEPSIS Current Stage of Sepsis: Ruled out"
== END 2023-05-27 13:51 | disposition home or self-care (01) | DRG 388 ==
LOC: ED 05:04 → MS3 09:25 → OBSVTOIN 05-27 07:39
PROVIDERS: ADMIT Specialist; ATTEND Specialist
DX: K56.7 Ileus, unspecified (principal); E43 Unspecified severe protein-calorie malnutrition; K56.609 Unspecified intestinal obstruction, unspecified as to partial versus complete obstruction; C85.95 Non-Hodgkin lymphoma, unspecified, lymph nodes of inguinal region and lower limb; K52.1 Toxic gastroenteritis and colitis; I10 Essential (primary) hypertension; I25.10 Atherosclerotic heart disease of native coronary artery without angina pectoris; E11.9 Type 2 diabetes mellitus without complications; Z79.84 Long term (current) use of oral hypoglycemic drugs; K21.9 Gastro-esophageal reflux disease without esophagitis; R35.0 Frequency of micturition; Z95.5 Presence of coronary angioplasty implant and graft; Z68.24 Body mass index [BMI] 24.0-24.9, adult; Z87.891 Personal history of nicotine dependence; Z79.60 Long term (current) use of unspecified immunomodulators and immunosuppressants; T45.1X5A Adverse effect of antineoplastic and immunosuppressive drugs, initial encounter; R53.1 Weakness; E78.00 Pure hypercholesterolemia, unspecified; Z90.79 Acquired absence of other genital organ(s); R63.0 Anorexia; R63.4 Abnormal weight loss; T47.6X5A Adverse effect of antidiarrheal drugs, initial encounter
CPT/HCPCS: 36415; 74018; 74177; 80048; 80053; 81003; 82306; 82607; 82746; 83690; 83735; 85025; 87493; 96374; 96375; 99285; G0378; J1170; J7120; Q9963; Q9967; 81001; 87086

== ENCOUNTER 2023-06-10 15:20 | Outpatient (CLI) | payer MEDICARE, OTHER | END 2023-06-10 15:21 | disposition critical access hospital (66) | LOC: EMS 15:20 | DX: R10.84 Generalized abdominal pain (principal); R10.817 Generalized abdominal tenderness; R11.0 Nausea | CPT/HCPCS: A0425; A0427 ==

== ENCOUNTER 2023-06-10 15:36 | Inpatient (IN) | payer MEDICARE, OTHER ==
--- NOTE | 2023-06-10 15:47 | ED Physician Documentation ---
PD HPI ABD PAIN - Stated complaint Stated Complaint: ABD PX - Chief complaint Chief Complaint: Abd Pain - History obtained from History obtained from: Patient, EMS - Additional information Additional information: 83-year-old gentleman with history of lymphoma still getting chemotherapy but in remission. He has a history of remote appendectomy and prostatectomy. He was admitted here for 2 days a couple weeks ago for an ileus and resolved with conservative management. The ileus was due to Imodium use. He is no longer taking Imodium. Today 2 PM he had eaten some ice cream and then some [employer] and potato chips and developed severe lower abdominal pain. The quality is similar to the ileus pain, but he says this is not spasming and more constant and still severe despite 50 mcg of fentanyl on the way here from EMS. Nausea is coming and going. States his bowel movements have been normal. 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 : Benign prostate hypertrophy, Frequency, Other HEENT: None Psych: None, Claustrophobia Musculoskeletal: Osteoarthritis Derm: Other - Past Surgical History Past Surgical History: Yes General: Appendectomy, Other Cardiovascular: Coronary stent - Present Medications Home Medications: Ambulatory Orders Medication Instructions Recorded Confirmed amLODIPine [Norvasc] 5 mg PO BID 03/22/19 05/25/23 Atorvastatin Calcium 40 mg PO DAILY 12/15/22 05/25/23 Empagliflozin [Jardiance] 10 mg PO DAILY 12/15/22 05/25/23 Ondansetron Odt [Zofran Odt] 4 mg TL Q6H PRN #90 tablet 12/22/22 03/30/23 Prochlorperazine Maleate 5 mg PO Q6H PRN #90 tablet 12/22/22 03/30/23 [Compazine] Amiodarone [Pacerone] 200 mg PO DAILY 02/05/23 05/25/23 Buspirone HCl 10 mg PO BID 02/05/23 05/25/23 Metoprolol Succinate [Toprol Xl] 25 mg PO DAILY 02/05/23 05/25/23 Omeprazole Magnesium 20 mg PO DAILY 02/05/23 05/25/23 Rivaroxaban [Xarelto] 20 mg PO QDDINNER 02/05/23 03/30/23 levoFLOXacin [Levaquin] 500 mg PO DAILY 02/05/23 03/30/23 lisinopriL [Zestril] 5 mg PO DAILY 02/05/23 05/25/23 Lidocaine/Prilocain 2.5% Cream See Rx Instructions .ROUTE .COMPLEX 05/26/23 05/26/23 [Emla 2.5% Cream] predniSONE [Prednisone] See Rx Instructions .ROUTE .COMPLEX 05/26/23 05/26/23 - Allergies Allergies/Adverse Reactions: Allergies Allergy/AdvReac Type Severity Reaction Status Date / Time milk AdvReac gas Verified 06/10/23 15:55 - Social History Does the pt smoke?: No Smoking Status: Never smoker Does the pt drink ETOH?: Yes Does the pt have substance abuse?: No - Immunizations Immunizations are current?: Yes - POLST Patient has POLST: No POLST Status: Full Code PD ED PE NORMAL - Vitals Vital signs reviewed: Yes - General General: Alert and oriented X 3, No acute distress - HEENT HEENT: PERRL, EOMI - Neck Neck: Supple, no meningeal sign, No bony TTP - Cardiac Cardiac: RRR, No murmur - Respiratory Respiratory: No respiratory distress, Clear bilaterally - Abdomen Abdomen: Other (He is severely tender throughout especially in the low abdomen with rebound tenderness and guarding.) - Neuro Neuro: Alert and oriented X 3 Results - Vitals Vitals: Vital Signs - 24 hr 06/10/23 06/10/23 15:41 17:44 Temperature 36.7 C Heart Rate 68 92 Respiratory 22 21 Rate Blood Pressure 151/75 H 155/74 H O2 Saturation 98 95 If not protocol 2 : Oxygen Flow, liters/minute Oxygen O2 Source Nasal cannula - Labs Labs: Laboratory Tests 06/10/23 06/10/23 06/10/23 15:45 15:45 16:00 WBC 14.2 H RBC 3.90 L Hgb 11.9 L Hct 39.2 L MCV 100.5 H MCH 30.5 MCHC 30.4 L RDW 17.2 H Plt Count 231 MPV 10.4 Neut # (Auto) 12.7 H Lymph # (Auto) 0.8 L [place] # (Auto) 0.5 Eos # (Auto) 0.1 Baso # (Auto) 0.0 Absolute Nucleated RBC 0.00 Nucleated RBC % 0.0 PT 12.1 INR 1.1 Sodium 140 Potassium 3.7 Chloride 106 Carbon Dioxide 26 Anion Gap 8.0 BUN 21 H Creatinine 1.1 Estimated GFR (MDRD) 64 L Glucose 144 H Lactic Acid Calcium 9.5 Total Bilirubin 0.3 AST 13 ALT 13 Alkaline Phosphatase 101 Total Protein 6.5 Albumin 4.2 Globulin 2.3 Albumin/Globulin Ratio 1.8 Lipase 11 06/10/23 16:00 WBC RBC Hgb Hct MCV MCH MCHC RDW Plt Count MPV Neut # (Auto) Lymph # (Auto) [place] # (Auto) Eos # (Auto) Baso # (Auto) Absolute Nucleated RBC Nucleated RBC % PT INR Sodium Potassium Chloride Carbon Dioxide Anion Gap BUN Creatinine Estimated GFR (MDRD) Glucose Lactic Acid 1.8 Calcium Total Bilirubin AST ALT Alkaline Phosphatase Total Protein Albumin Globulin Albumin/Globulin Ratio Lipase PD Medical Decision Making - ED course ED course: This is an 83-year-old gentleman with history of lymphoma in remission who pre sents with abdominal pain. He was admitted a couple of weeks ago for an ileus, the CT was originally read as a small bowel obstruction. He was admitted to medicine and improved. He has not been on Imodium again since. 83-year-old gentleman presents with severe abdominal pain and normal surgical exam such that I initially started by obtaining of chest x-ray to look for free air which there was none. Subsequently workup demonstrated a normal lactate, elevated white count, unremarkable chemistries, and a CT showing a bowel obstruction. I discussed the case by phone with our on-call surgeon, Dr. Liao who will follow along and recommends NG tube placement and admission to medicine. Telehealth consultation was placed at 7 PM. Departure - Departure Disposition: 66 [facility] DC/Xfer Clinical Impression: Small bowel obstruction Condition: Stable Forms: PCP List
[2023-06-10] MEDS: HYDROmorphone 1 MG/ML CARPUJECT IVP STA ×3 (16:01→18:52)
[2023-06-10 16:04] LABS: BASOPHILS % (AUTO) 0.2 %; EOSINOPHILS # (AUTO) 0.1 10^3/uL (0.0-0.7); EOSINOPHILS % (AUTO) 0.6 %; HCT - HEMATOCRIT 39.2 % (42.0-52.0); HGB - HEMOGLOBIN 11.9 g/dL (14.0-18.0); LYMPHOCYTES # (AUTO) 0.8 10^3/uL (1.5-3.5); LYMPHOCYTES % (AUTO) 5.4 %; MEAN CORPUSCULAR HEMOGLOBIN 30.5 pg (27.0-31.0); MEAN CORPUSCULAR HGB CONC 30.4 g/dL (32.0-36.0); MEAN CORPUSCULAR VOLUME 100.5 fL (80.0-94.0); MEAN PLATELET VOLUME 10.4 fL (7.4-11.4); MONOCYTES # (AUTO) 0.5 10^3/uL (0.0-1.0); MONOCYTES % (AUTO) 3.5 %; NEUTROPHILS # (AUTO) 12.7 10^3/uL (1.5-6.6); NEUTROPHILS % (AUTO) 89.7 %; PLT - PLATELET COUNT 231 10^3/uL (130-450); RED CELL DISTRIBUTION WIDTH 17.2 % (12.0-15.0); WHITE BLOOD COUNT 14.2 x10^3/uL (4.8-10.8)
[2023-06-10] MEDS: ONDANSETRON 4 MG/2 ML VIAL IVP STA (16:12)
[2023-06-10 16:19] LABS: INR 1.1 (0.8-1.2); PT - PROTHROMBIN TIME 12.1 secs (9.9-12.6)
[2023-06-10 16:39] LABS: ALBUMIN 4.2 g/dL (3.2-5.5); ALBUMIN/GLOBULIN RATIO 1.8 (1.0-2.2); BILIRUBIN,TOTAL 0.3 mg/dL (0.2-1.0); CALCIUM 9.5 mg/dL (8.5-10.3); CREATININE 1.1 mg/dL (0.6-1.3); POTASSIUM 3.7 mmol/L (3.5-4.5); TOTAL PROTEIN 6.5 g/dL (6.4-8.9)
[2023-06-10] MEDS: METOCLOPRAMIDE 10 MG/2 ML VIAL IVP STA (17:26)
--- NOTE | 2023-06-10 17:53 | XRAY Report ---
PROCEDURE: Chest 1V INDICATIONS: upright, abd pain, evall free air? TECHNIQUE: One view of the chest was acquired. COMPARISON: Chest x-ray, 06/25/2022. Chest CT, 03/15/2023. FINDINGS: Surgical changes and devices: Sternotomy. Lungs and pleura: No pleural effusions or pneumothorax. Lungs are clear. Mediastinum: Mediastinal contours appear normal. Heart size is normal. Bones and chest wall: No suspicious bony lesions. Overlying soft tissues appear unremarkable. IMPRESSION: 1. No acute cardiopulmonary process. 2. No definitive free air under the diaphragms. If there is clinical suspicion for bowel perforation, consider CT. Reviewed by: Vanna Valverde MD on 06/10/2023 5:52 PM PDT Approved by: Vanna Valverde MD on 06/10/2023 5:52 PM PDT Station ID: [id number]
[2023-06-10] MEDS: iohexoL-300 100 ML VIAL IVP ONE (18:21)
--- NOTE | 2023-06-10 18:41 | CT Report ---
PROCEDURE: Abdomen/Pelvis W INDICATIONS: IV only, abd pain CONTRAST: 100ml omni 300 TECHNIQUE: After the administration of intravenous contrast, a CT scan of the abdomen and pelvis was performed. Images were recorded and evaluated at appropriate window settings. Reformats: coronal and sagittal. F or radiation dose reduction, the following was used: automated exposure control, adjustment of mA and /or kV according to patient size. COMPARISON: 05/25/2023. FINDINGS: Image quality: Diagnostic. Lower chest: Mild groundglass within the right lower lobe and right middle lobe. Bilateral dependent atelectasis. Mild cardiomegaly. Liver: Segment 4 liver lesion with hyperdensity is again seen, stable. Gallbladder and biliary tree: No radiopaque stones or wall thickening. No biliary dilation. Spleen: No splenomegaly. Pancreas: No pancreatic ductal dilation. Adrenals: No adrenal nodule. Kidneys and ureters: No hydronephrosis. No renal cystic lesion which requires follow up. No solid mas s. Stomach, bowel and peritoneum: The distal esophagus is dilated and fluid-filled. Redemonstration of d istended fluid-filled loops of small bowel with associated wall thickening and surrounding edema/flui d. There appears to be a transition point within the mid upper abdomen. Diverticulosis without eviden ce of diverticulitis. Small free fluid is seen throughout the abdomen and pelvis. Lymph nodes: No central or retroperitoneal adenopathy. Vessels: No infrarenal aortic aneurysm. Atherosclerotic vascular calcifications. 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 PELVIS Reproductive organs: Unremarkable. Bladder: No abnormal wall thickening, accounting for underdistention. Pelvic lymph nodes: No pelvic adenopathy by size criteria. Bones: No aggressive osseous abnormality. Degenerative changes of the spine. Other: Moderate left and small right inguinal hernias containing fat. Small fluid is seen within the left inguinal hernia. IMPRESSION: 1.Redemonstration of small bowel obstruction. There is a possible transition point within the mid/upp er abdomen. 2.There is associated small bowel wall thickening with surrounding stranding/fluid, may be reactive v ersus enteritis. 3. Small groundglass within the right middle and lower lobes, may be infectious in etiology. 4.Additional stable chronic findings as described above. Reviewed by: Fawad Valdovinos MD on 06/10/2023 6:39 PM PDT Approved by: Fawad Valdovinos MD on 06/10/2023 6:39 PM PDT Station ID: [id number]
--- NOTE | 2023-06-10 20:11 | XRAY Report ---
PROCEDURE: No-Charge 1V Abdomen INDICATIONS: POST NG TUBE TECHNIQUE: 1 view of the abdomen were acquired. COMPARISON: X-ray and CT, 06/10/2023 FINDINGS: Surgical changes and devices: Gastric tube side-port projects over the hiatal hernia. The tip projec ts over the gastric body. Bowel: No pneumoperitoneum. The bowel gas pattern is normal. Stool load within normal limits. Soft tissues: No masses; visualized solid organ contours appear normal in size. No suspicious abdom inal calcifications. Bones: No suspicious bony abnormalities. IMPRESSION: Gastric tube side port projects over the hiatal hernia, and the tip projects over the gastric body. R ecommend advancement by 4 cm. Reviewed by: Myron Gonzalez MD on 06/10/2023 8:10 PM PDT Approved by: Myron Gonzalez MD on 06/10/2023 8:10 PM PDT Station ID: [id number]
--- NOTE | 2023-06-10 20:35 | CONSULTATION NOTE ---
Referring Provider Name of Referring Provider:: Dr. 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 He was admitted with similar 2 weeks ago (deemed to be ileus, resolved without NGT and was associated with diarrhea), but otherwise denies prior similar episodes, and had been fine in the interim since admission 2 weeks ago. Denies emesis, had a BM this morning and regular daily BMs of late, no blood in stool. Denies f/c. Does feel weak 2/2 to the pain. History - Past Medical History Cardiovascular: reports: Hypertension, High cholesterol, Coronary artery disease Respiratory: reports: None Neuro: reports: None Endocrine/Autoimmune: reports: Type 2 diabetes GI: reports: GERD, Hiatal hernia, Colon polyps ESTIMATE CLERK: reports: None : reports: Benign prostate hypertrophy, Frequency, Other HEENT: reports: None Psych: reports: None, Claustrophobia Musculoskeletal: reports: Osteoarthritis Derm: reports: Other MRSA Hx?: No Other Past Medical History: Lymphoma - Past Surgical History General: reports: Appendectomy, Other (Hemorrhoidectomy) Cardiovascular: reports: CABG, Coronary stent Other past surgical history: TURBT - Family & Social History Family History: Mother: , Father: Living Situation: Alone, With spouse/s.o. (Has been living with girlfriend thes last couple of months ) Social History Notes: 31 year smoke history (quite @ age 42). EOTH 25 yrs (6-8 oz daily), quite 2.5 yrs ago. Denies recreational drug use - Substance History Use: Uses substance without health or social issues: NONE - POLST Patient has POLST: No POLST Status: Full Code Meds/Allgy - Home Medications Home Medications: Ambulatory Orders Medication Instructions Recorded Confirmed amLODIPine [Norvasc] 5 mg PO BID 03/22/19 05/25/23 Atorvastatin Calcium 40 mg PO DAILY 12/15/22 05/25/23 Empagliflozin [Jardiance] 10 mg PO DAILY 12/15/22 05/25/23 Ondansetron Odt [Zofran Odt] 4 mg TL Q6H PRN #90 tablet 12/22/22 03/30/23 Prochlorperazine Maleate 5 mg PO Q6H PRN #90 tablet 12/22/22 03/30/23 [Compazine] Amiodarone [Pacerone] 200 mg PO DAILY 02/05/23 05/25/23 Buspirone HCl 10 mg PO BID 02/05/23 05/25/23 Metoprolol Succinate [Toprol Xl] 25 mg PO DAILY 02/05/23 05/25/23 Omeprazole Magnesium 20 mg PO DAILY 02/05/23 05/25/23 Rivaroxaban [Xarelto] 20 mg PO QDDINNER 02/05/23 03/30/23 levoFLOXacin [Levaquin] 500 mg PO DAILY 02/05/23 03/30/23 lisinopriL [Zestril] 5 mg PO DAILY 02/05/23 05/25/23 Lidocaine/Prilocain 2.5% Cream See Rx Instructions .ROUTE .COMPLEX 05/26/23 05/26/23 [Emla 2.5% Cream] predniSONE [Prednisone] See Rx Instructions .ROUTE .COMPLEX 05/26/23 05/26/23 - Allergies Allergies/Adverse Reactions: Allergies Allergy/AdvReac Type Severity Reaction Status Date / Time milk AdvReac gas Verified 06/10/23 15:55 Review of Systems - Constitutional Constitutional: reports: Fatigue, Weakness - Gastrointestinal Gastrointestinal: reports: Abdominal pain, Abdominal distention, Change in bowel habits (unable to pass flatus) Exam - Vital Signs Reviewed Vital Signs: Yes Vital Signs: Vital Signs x48h Temp Pulse Resp BP Pulse Ox O2 Flow Rate 06/10/23 19:00 87 18 126/59 L 96 2 06/10/23 17:44 92 21 155/74 H 95 2 06/10/23 15:41 36.7 C 68 22 151/75 H 98 - Physical Exam General Appearance: positive: Moderate distress (distress 2/2 pain) Eyes Bilateral: positive: Normal inspection, PERRL ENT: positive: ENT inspection nml, Pharynx nml, No signs of dehydration Neck: positive: Nml inspection, Thyroid nml, No JVD, Trachea midline Respiratory: positive: Chest non-tender, No respiratory distress, Breath sounds nml Cardiovascular: positive: Regular rate & rhythm, No murmur, No gallop Peripheral Pulses: positive: 2+ Abdomen: positive: Tenderness, Other (distended, ttp L>R hemiabdomen, nonperitoneal). negative: No distention Back: positive: Nml inspection Skin: positive: Color nml, No rash, Warm, Dry Extremities: positive: Non-tender, Full ROM, Nml appearance Neurologic/Psychiatric: positive: Oriented x3, Mood/affect nml Conclusion and Plan - Lab Results Laboratory Results 06/10/23 16:00: Lactic Acid 1.8 06/10/23 16:00: Sodium 140, Potassium 3.7, Chloride 106, Carbon Dioxide 26, Anion Gap 8.0, BUN 21 H, Creatinine 1.1, Estimated GFR (MDRD) 64 L, Glucose 144 H, Calcium 9.5, Total Bilirubin 0.3, AST 13, ALT 13, Alkaline Phosphatase 101, Total Protein 6.5, Albumin 4.2, Globulin 2.3, Albumin/Globulin Ratio 1.8, Lipase 11 06/10/23 15:45: PT 12.1, INR 1.1 06/10/23 15:45: WBC 14.2 H, RBC 3.90 L, Hgb 11.9 L, Hct 39.2 L, MCV 100.5 H, MCH 30.5, MCHC 30.4 L, RDW 17.2 H, Plt Count 231, MPV 10.4, Neut # (Auto) 12.7 H, Lymph # (Auto) 0.8 L, [place] # (Auto) 0.5, Eos # (Auto) 0.1, Baso # (Auto) 0.0, Absolute Nucleated RBC 0.00, Nucleated RBC % 0.0 - Diagnostic Imaging Results Diagnostic Imaging Results: positive: Final report reviewed, Read independently Diagnostic Imaging Results Comments: CXR - no free air under diaphragm CT abd/pel with IV contrast - dilated fluid filled stomach and esophagus with dilated small bowel and TP in mid abdomen, small amount of associated free fluid in pelvis AXR (post NGT) - tip of NGT in stomach but side port in esophagus (need to advance) - Diagnosis Diagnosis: Small bowel obstruction - Consultation Note Consultation Note: 83yoM recently completed chemotherapy for stage III/IV b cell lymphoma with small bowel obstruction. Similar abdominal pain 2 weeks ago except then associated with diarrhea and resolved without NGT. HD normal with WBC elevated to 14 but labs otherwise unremarkable (and normal lactate). Does have significant pain requiring dialudid, though not peritoneal on exam. Discussed with patient that first line mgmt is bowel decompression with NGT and bowel rest and IVF. Only if this falls to result in resolution would we consider surgical intervention. In particular, surgical intervention in his case is higher risk of complications given recent chemotherapy and prednisone. - Admission to medicine service - NGT placed in ED (need to advance by 10cm based on plain film after placement; repeat AXR after advancing NGT) - NPO with IVF - serial abdominal exams - plan for gastrograffin challenge after intitial period of decompression (24- 48hrs) Spring Piper DO, FACS General Surgeon
[2023-06-10] MEDS ORDERED: PREDNISONE 50 MG SCH (21:30)
--- NOTE | 2023-06-10 21:31 | XRAY Report ---
PROCEDURE: No-Charge 1V Abdomen INDICATIONS: Recheck NG tube after advancement TECHNIQUE: 1 view of the abdomen were acquired. COMPARISON: Same day x-ray and CT. FINDINGS: Surgical changes and devices: Gastric tube has been advanced; the side-port and tip projects over th e gastric body. Bowel: No pneumoperitoneum. The bowel gas pattern is normal. Stool load within normal limits. Soft tissues: No masses; visualized solid organ contours appear normal in size. No suspicious abdom inal calcifications. Bones: No suspicious bony abnormalities. IMPRESSION: Interval advancement of the gastric tube, with the side-port and tip projecting over the gastric body . This appears appropriate in position. Reviewed by: Myron Gonzalez MD on 06/10/2023 9:30 PM PDT Approved by: Myron Gonzalez MD on 06/10/2023 9:30 PM PDT Station ID: [id number]
[2023-06-10] MEDS: SODIUM CHLORIDE FLUSH 0.9% 10 ML SYRINGE IVP PRN (22:13)
[2023-06-10] MEDS: MORPHINE 2 MG/ML CARPUJECT IVP PRN (22:13)
[2023-06-10] MEDS: LACTATED RINGERS 1,000 ML IV SCH (22:17)
[2023-06-11 00:03] LABS: CHOL/HDL RATIO 3.7 (<5.0); CHOLESTEROL 144 mg/dL; HDL CHOLESTEROL 39 mg/dL; LDL CHOLESTEROL,CALCULATED 88 mg/dL; LDL/HDL RATIO 2.3 (<3.6); TRIGLYCERIDES 83 mg/dL (48-352); VLDL CHOLESTEROL 17 mg/dL
[2023-06-11] MEDS: PIPERACILLIN/TAZOBACTAM 3.375 GM in SODIUM CHLORIDE 0.9% MINIBAG 100 ML IV SCH (00:50)
[2023-06-11] MEDS: SODIUM CHLORIDE FLUSH 0.9% 10 ML SYRINGE IVP SCH (00:51)
[2023-06-11 00:56] LABS: THYROID STIMULATING HORMONE 1.35 uIU/mL (0.34-5.60)
--- NOTE | 2023-06-11 01:23 | HISTORY & PHYSICAL EXAMINATION ---
Chief Complaint - Chief Complaint Chief Complaint: abd pain, nausea, vomiting History of Present Illness - History of Present Illness HPI Comment/Other: pt with h/o lymphoma currently in remission s/p chemotherapy, with h/o ileus d/t imodium usage (no longer taken imodium), presents with abd pain, nausea, vomiting that developed within last day or so. pt states he had some ice cream and soda and symptoms started. has some chills. no chest pain or sob. denies abd trauma. h/o appendectomy and prostatectomy. states bm is normal. no dysuria or hematuria. History - Past Medical History Cardiovascular: reports: Hypertension, High cholesterol, Coronary artery disease Respiratory: reports: None Neuro: reports: None Endocrine/Autoimmune: reports: Type 2 diabetes GI: reports: GERD, Hiatal hernia, Colon polyps SHOCHET: reports: None : reports: Benign prostate hypertrophy, Frequency, Other HEENT: reports: None Psych: reports: None, Claustrophobia Musculoskeletal: reports: Osteoarthritis Derm: reports: Other MRSA Hx?: No Other Past Medical History: Lymphoma - Past Surgical History General: reports: Appendectomy, Other Cardiovascular: reports: CABG, Coronary stent Other past surgical history: TURBT - Family & Social History Family History: Mother: , Father: Living Situation: Alone, With spouse/s.o. (Has been living with girlfriend thes last couple of months ) Social History Notes: 31 year smoke history (quite @ age 42). EOTH 25 yrs (6-8 oz daily), quite 2.5 yrs ago. Denies recreational drug use - Substance History Use: Uses substance without health or social issues: NONE - POLST Patient has POLST: No POLST Status: Full Code Meds/Allgy - Home Medications Home Medications: Ambulatory Orders Medication Instructions Recorded Confirmed amLODIPine [Norvasc] 5 mg PO BID 03/22/19 05/25/23 Atorvastatin Calcium 40 mg PO DAILY 12/15/22 05/25/23 Empagliflozin [Jardiance] 10 mg PO DAILY 12/15/22 05/25/23 Ondansetron Odt [Zofran Odt] 4 mg TL Q6H PRN #90 tablet 12/22/22 03/30/23 Prochlorperazine Maleate 5 mg PO Q6H PRN #90 tablet 12/22/22 03/30/23 [Compazine] Amiodarone [Pacerone] 200 mg PO DAILY 02/05/23 05/25/23 Buspirone HCl 10 mg PO BID 02/05/23 05/25/23 Metoprolol Succinate [Toprol Xl] 25 mg PO DAILY 02/05/23 05/25/23 Omeprazole Magnesium 20 mg PO DAILY 02/05/23 05/25/23 Rivaroxaban [Xarelto] 20 mg PO QDDINNER 02/05/23 03/30/23 levoFLOXacin [Levaquin] 500 mg PO DAILY 02/05/23 03/30/23 lisinopriL [Zestril] 5 mg PO DAILY 02/05/23 05/25/23 Lidocaine/Prilocain 2.5% Cream See Rx Instructions .ROUTE .COMPLEX 05/26/23 05/26/23 [Emla 2.5% Cream] predniSONE [Prednisone] See Rx Instructions .ROUTE .COMPLEX 05/26/23 05/26/23 - Allergies Allergies/Adverse Reactions: Allergies Allergy/AdvReac Type Severity Reaction Status Date / Time milk AdvReac gas Verified 06/10/23 15:55 Review of Systems - Other Findings Other Findings: 14 pt review done with positives per hpi; all others reviewed as negative Exam - Vital Signs Vital Signs: Vital Signs x48h Temp Pulse Pulse Resp BP BP Pulse Ox 06/11/23 00:44 36.6 C 85 18 102/53 L 96 06/10/23 22:12 36.5 C 101 H 18 165/79 H 99 06/10/23 22:07 06/10/23 21:00 85 21 132/64 H 97 06/10/23 19:00 87 18 126/59 L 96 06/10/23 17:44 92 21 155/74 H 95 O2 Flow Rate 06/11/23 00:44 2 06/10/23 22:12 06/10/23 22:07 2 06/10/23 21:00 2 06/10/23 19:00 2 06/10/23 17:44 2 - Physical Exam Comments/Other: gen - aaox3, uncomfortable but cooperative with questions heent - ngt in place, nc/at heart - per ed charting lungs - per ed charting abd - pt c/o diffuse abd pain, alexander lower abd msk - no acute trauma noted Conclusion/Plan - Lab Results Fish Bones: 06/10/23 15:45 06/10/23 16:00 - Other Other Results/Comments: pt with - - sbo with h/o ileus s/p ngt placement, tolerated well gen surg on case pain control, supportive care - enteritis in setting of above zosyn, ivf - kishan likely in setting of above + cancer hx continue ivf, check renal sono - ground-glass opacities of lung bases not on abd ct CXR without acute abnl check ct chest check resp viral panel f/u labs, electrolytes, clinical status further orders per clinical course
[2023-06-11 04:32] LABS: INFLUENZA A- RESP PCR PANEL NOT DETECTED; INFLUENZA B - RESP PCR PANEL NOT DETECTED; RSV- RESP PCR PANEL NOT DETECTED; SARS-CoV-2 -RESP PCR PANEL NOT DETECTED
[2023-06-11 05:43] LABS: BASOPHILS # (AUTO) 0.1 10^3/uL (0.0-0.1); BASOPHILS % (AUTO) 0.3 %; EOSINOPHILS # (AUTO) 0.3 10^3/uL (0.0-0.7); EOSINOPHILS % (AUTO) 1.5 %; HCT - HEMATOCRIT 41.4 % (42.0-52.0); HGB - HEMOGLOBIN 12.6 g/dL (14.0-18.0); LYMPHOCYTES # (AUTO) 0.3 10^3/uL (1.5-3.5); LYMPHOCYTES % (AUTO) 1.5 %; MEAN CORPUSCULAR HEMOGLOBIN 30.4 pg (27.0-31.0); MEAN CORPUSCULAR HGB CONC 30.4 g/dL (32.0-36.0); MEAN PLATELET VOLUME 11.7 fL (7.4-11.4); MONOCYTES # (AUTO) 0.7 10^3/uL (0.0-1.0); NEUTROPHILS # (AUTO) 16.4 10^3/uL (1.5-6.6); NEUTROPHILS % (AUTO) 92.4 %; PLT - PLATELET COUNT 228 10^3/uL (130-450); RED BLOOD COUNT 4.14 10^6/uL (4.70-6.10); RED CELL DISTRIBUTION WIDTH 17.2 % (12.0-15.0); WHITE BLOOD COUNT 17.7 x10^3/uL (4.8-10.8)
[2023-06-11 05:57] LABS: ALBUMIN/GLOBULIN RATIO 1.8 (1.0-2.2); BILIRUBIN,TOTAL 0.6 mg/dL (0.2-1.0); CALCIUM 9.7 mg/dL (8.5-10.3); CREATININE 1.7 mg/dL (0.6-1.3); MAGNESIUM 1.3 mg/dL (1.7-2.3); POTASSIUM 4.1 mmol/L (3.5-4.5); TOTAL PROTEIN 6.2 g/dL (6.4-8.9)
[2023-06-11] MEDS: HYDROmorphone 0.5 MG/0.5 ML SYRINGE IVP PRN ×2 (07:04→21:19)
--- NOTE | 2023-06-11 08:34 | CT Report ---
PROCEDURE: Chest WO INDICATIONS: pna TECHNIQUE: A CT scan of the chest was performed. Intravenous contrast media was not administered. Images were re corded and evaluated at appropriate window settings. Reformats: axial MIP of the chest, coronal and s agittal. For radiation dose reduction, the following was used: automated exposure control, adjustment of mA and/or kV according to patient size. COMPARISON: CT chest dated 03/15/2023 and chest radiograph dated 06/10/2023. FINDINGS: Image quality: Diagnostic. Chest wall and lower neck: Hypodense nodule in midpole right thyroid lobe measures 1.9 x 1.3 cm in si ze is seen containing a focal calcification series 2 image 18. This was previously measured at 1.4 cm in size.. No axillary or supraclavicular adenopathy by size. Median sternotomy wires are seen. Left chest wall Port-A-Cath tip is in SVC. Lungs and pleura: There is interval development of patchy airspace consolidations at bilateral lung b ases more notably in right middle and lower lobes extending to bilateral infrahilar. Chronic edematou s changes are seen. There is trace left pleural effusion. No pneumothorax. Central and peripheral air way is patent. Previously described 1.2 x 8 cm pleural-based nodule in right middle lobe is unchanged series 4 image 65. Previously described right major fissure pleural thickening is also unchanged. No dule in left lower lobe are less well seen due to presence of airspace consolidation. The 6 mm nodule noted in this area is again seen and unchanged series 4 image 69. Mediastinum: Heart size is enlarged. No pericardial effusion. Three-vessel coronary artery calcificat ions are seen. No large vessel abnormality. Previously described 1.2 cm right paratracheal lymph node now measures 9 mm in size. Previously described 1 cm right hilar node now measures 9 mm in size. No new mediastinal or hilar lymphadenopathy. Fluid distended esophagus is seen with NG tube seen extendi ng to the stomach lumen. Small hiatal hernia is likely present. No significant esophageal wall thicke fareed is seen. Bones: No aggressive osseous abnormality. Upper Abdomen: Unremarkable. IMPRESSION: 1. Interval development of patchy infiltrates in bilateral lung bases concerning for infiltrate versu s atelectasis. Trace left pleural effusion. Stable pleural-based right middle lobe nodule and 6 mm le ft lower lobe nodule. No pneumothorax. Airway is patent. 2. Subcentimeter mediastinal and right hilar lymph nodes decreased in size compared to recent CT ches t study. 3. Fluid distended esophagus with NG tube in place. 4. Interval slight increase in size of patient's known right thyroid lobe nodule. Findings are concordant with preliminary interpretation provided by [facility]. Reviewed by: Chris Evangelista MD on 06/11/2023 8:33 AM PDT Approved by: Chris Evangelista MD on 06/11/2023 8:33 AM PDT Station ID: [id number]
[2023-06-11] MEDS ORDERED: lisinopriL 5 MG TABLET PO SCH (09:00)
[2023-06-11] MEDS ORDERED: predniSONE 20 MG TABLET PO SCH (09:00)
[2023-06-11] MEDS ORDERED: amLODIPine 5 MG TABLET PO SCH (09:00)
[2023-06-11] MEDS ORDERED: APIXABAN 5 MG TABLET PO SCH (09:00)
[2023-06-11 09:27] LABS: ESTIMATED AVERAGE GLUCOSE 108 mg/dL (70-100); HEMOGLOBIN A1c% 5.4 % (4.27-6.07)
--- NOTE | 2023-06-11 09:35 | XRAY Report ---
PROCEDURE: Abdomen 1 V INDICATIONS: Acute abdominal pain/smal bowel obstruction TECHNIQUE: One view of the abdomen acquired. COMPARISON: CT of abdomen and pelvis dated 06/10/2023. FINDINGS: Surgical changes and devices: NG tube tip is in the distal stomach lumen under right hemidiaphragm. A central venous catheter tip is seen in lower SVC/right atrium. Median sternotomy wires and surgical clips are.. Bowel: Bowel gas pattern is nonspecific for obstruction. No gross pneumoperitoneum. Fecal stasis in the colon is seen. Soft tissues: No suspicious abdominal calcifications. Visualized solid organ contours appear normal in size. Bones: No suspicious bony lesions. IMPRESSION: NG tube tip is in distal stomach lumen/proximal small bowel. No gross pneumoperitoneum. Nonspecific b owel gas pattern for obstruction. Mild fecal burden. Reviewed by: Chris Evangelista MD on 06/11/2023 9:34 AM PDT Approved by: Chris Evangelista MD on 06/11/2023 9:34 AM PDT Station ID: [id number]
--- NOTE | 2023-06-11 10:13 | PROVIDER PROGRESS NOTE ---
Subjective - General Admit Date: 06/10/23 - Review of Systems Drain Type: NGT - 1.3 L thick/dark gastric contents out since placement General: positive: Weakness HEENT: positive: No symptoms Pulmonary: positive: No symptoms Cardiovascular: positive: No symptoms Gastrointestinal: positive: Abdominal pain Genitourinary: positive: Retention (required straight cath overnight) Musculoskeletal: positive: No symptoms Skin: positive: No symptoms Psychiatric: positive: No symptoms Objective - Patient Data Vital Signs: Vital Signs x48h Temp Pulse Resp BP Pulse Ox 06/11/23 07:43 36.2 C L 85 12 104/49 L 93 Weight: Weight 06/09/23 06/10/23 06/11/23 23:59 23:59 23:59 Weight (kg) 88.5 kg Intake & Output: Intake and Output Totals x24h 06/09/23 06/10/23 06/11/23 23:59 23:59 23:59 Intake Total 227.5 Output Total 1910 Balance -1682.5 - Lab Results Lab Results: 06/11/23 05:10 06/11/23 05:10 Other Lab Results: Lab Results x24hrs 06/11/23 06/11/23 06/11/23 Range/Units 05:10 05:10 03:10 WBC 17.7 H (4.8-10.8) x10^3/uL RBC 4.14 L (4.70-6.10) 10^6/uL Hgb 12.6 L (14.0-18.0) g/dL Hct 41.4 L (42.0-52.0) % MCV 100.0 H (80.0-94.0) fL MCH 30.4 (27.0-31.0) pg MCHC 30.4 L (32.0-36.0) g/dL RDW 17.2 H (12.0-15.0) % Plt Count 228 (130-450) 10^3/uL MPV 11.7 H (7.4-11.4) fL Neut # (Auto) 16.4 H (1.5-6.6) 10^3/uL Lymph # (Auto) 0.3 L (1.5-3.5) 10^3/uL [place] # (Auto) 0.7 (0.0-1.0) 10^3/uL Eos # (Auto) 0.3 (0.0-0.7) 10^3/uL Baso # (Auto) 0.1 (0.0-0.1) 10^3/uL Absolute Nucleated RBC 0.00 x10^3/uL Nucleated RBC % 0.0 /100WBC PT (9.9-12.6) secs INR (0.8-1.2) Sodium 140 (135-145) mmol/L Potassium 4.1 (3.5-4.5) mmol/L Chloride 104 (101-111) mmol/L Carbon Dioxide 21 (21-32) mmol/L Anion Gap 15.0 H (6-13) BUN 34 H (6-20) mg/dL Creatinine 1.7 H (0.6-1.3) mg/dL Estimated GFR (MDRD) 39 L (>89) Glucose 208 H (74-104) mg/dL Estimat Average Glucose (70-100) mg/dL Hemoglobin A1c % (4.27-6.07) % Lactic Acid (0.5-2.2) mmol/L Calcium 9.7 (8.5-10.3) mg/dL Magnesium 1.3 L (1.7-2.3) mg/dL Total Bilirubin 0.6 (0.2-1.0) mg/dL AST 10 (10-42) IU/L ALT 11 (10-60) IU/L Alkaline Phosphatase 66 (42-121) IU/L Total Protein 6.2 L (6.4-8.9) g/dL Albumin 4.0 (3.2-5.5) g/dL Globulin 2.2 (2.1-4.2) g/dL Albumin/Globulin Ratio 1.8 (1.0-2.2) Triglycerides (48-352) mg/dL Cholesterol ( - 200) mg/dL LDL Cholesterol, Calc ( - 129) mg/dL VLDL Cholesterol mg/dL HDL Cholesterol (60 - ) mg/dL LDL/HDL Ratio (<3.6) Cholesterol/HDL Ratio (<5.0) Lipase (11-82) U/L TSH (0.34-5.60) uIU/mL Nasal Influenza B PCR NOT DETECTED Nasal Influenza A PCR NOT DETECTED Nasal RSV (PCR) NOT DETECTED Nasal SARS-CoV-2 (PCR) NOT DETECTED 06/10/23 06/10/23 06/10/23 Range/Units 23:34 23:34 16:00 WBC (4.8-10.8) x10^3/uL RBC (4.70-6.10) 10^6/uL Hgb (14.0-18.0) g/dL Hct (42.0-52.0) % MCV (80.0-94.0) fL MCH (27.0-31.0) pg MCHC (32.0-36.0) g/dL RDW (12.0-15.0) % Plt Count (130-450) 10^3/uL MPV (7.4-11.4) fL Neut # (Auto) (1.5-6.6) 10^3/uL Lymph # (Auto) (1.5-3.5) 10^3/uL [place] # (Auto) (0.0-1.0) 10^3/uL Eos # (Auto) (0.0-0.7) 10^3/uL Baso # (Auto) (0.0-0.1) 10^3/uL Absolute Nucleated RBC x10^3/uL Nucleated RBC % /100WBC PT (9.9-12.6) secs INR (0.8-1.2) Sodium (135-145) mmol/L Potassium (3.5-4.5) mmol/L Chloride (101-111) mmol/L Carbon Dioxide (21-32) mmol/L Anion Gap (6-13) BUN (6-20) mg/dL Creatinine (0.6-1.3) mg/dL Estimated GFR (MDRD) (>89) Glucose (74-104) mg/dL Estimat Average Glucose 108 H (70-100) mg/dL Hemoglobin A1c % 5.4 (4.27-6.07) % Lactic Acid 1.8 (0.5-2.2) mmol/L Calcium (8.5-10.3) mg/dL Magnesium (1.7-2.3) mg/dL Total Bilirubin (0.2-1.0) mg/dL AST (10-42) IU/L ALT (10-60) IU/L Alkaline Phosphatase (42-121) IU/L Total Protein (6.4-8.9) g/dL Albumin (3.2-5.5) g/dL Globulin (2.1-4.2) g/dL Albumin/Globulin Ratio (1.0-2.2) Triglycerides 83 (48-352) mg/dL Cholesterol 144 ( - 200) mg/dL LDL Cholesterol, Calc 88 ( - 129) mg/dL VLDL Cholesterol 17 mg/dL HDL Cholesterol 39 L (60 - ) mg/dL LDL/HDL Ratio 2.3 (<3.6) Cholesterol/HDL Ratio 3.7 (<5.0) Lipase (11-82) U/L TSH 1.35 (0.34-5.60) uIU/mL Nasal Influenza B PCR Nasal Influenza A PCR Nasal RSV (PCR) Nasal SARS-CoV-2 (PCR) 06/10/23 06/10/23 06/10/23 Range/Units 16:00 15:45 15:45 WBC 14.2 H (4.8-10.8) x10^3/uL RBC 3.90 L (4.70-6.10) 10^6/uL Hgb 11.9 L (14.0-18.0) g/dL Hct 39.2 L (42.0-52.0) % MCV 100.5 H (80.0-94.0) fL MCH 30.5 (27.0-31.0) pg MCHC 30.4 L (32.0-36.0) g/dL RDW 17.2 H (12.0-15.0) % Plt Count 231 (130-450) 10^3/uL MPV 10.4 (7.4-11.4) fL Neut # (Auto) 12.7 H (1.5-6.6) 10^3/uL Lymph # (Auto) 0.8 L (1.5-3.5) 10^3/uL [place] # (Auto) 0.5 (0.0-1.0) 10^3/uL Eos # (Auto) 0.1 (0.0-0.7) 10^3/uL Baso # (Auto) 0.0 (0.0-0.1) 10^3/uL Absolute Nucleated RBC 0.00 x10^3/uL Nucleated RBC % 0.0 /100WBC PT 12.1 (9.9-12.6) secs INR 1.1 (0.8-1.2) Sodium 140 (135-145) mmol/L Potassium 3.7 (3.5-4.5) mmol/L Chloride 106 (101-111) mmol/L Carbon Dioxide 26 (21-32) mmol/L Anion Gap 8.0 (6-13) BUN 21 H (6-20) mg/dL Creatinine 1.1 (0.6-1.3) mg/dL Estimated GFR (MDRD) 64 L (>89) Glucose 144 H (74-104) mg/dL Estimat Average Glucose (70-100) mg/dL Hemoglobin A1c % (4.27-6.07) % Lactic Acid (0.5-2.2) mmol/L Calcium 9.5 (8.5-10.3) mg/dL Magnesium (1.7-2.3) mg/dL Total Bilirubin 0.3 (0.2-1.0) mg/dL AST 13 (10-42) IU/L ALT 13 (10-60) IU/L Alkaline Phosphatase 101 (42-121) IU/L Total Protein 6.5 (6.4-8.9) g/dL Albumin 4.2 (3.2-5.5) g/dL Globulin 2.3 (2.1-4.2) g/dL Albumin/Globulin Ratio 1.8 (1.0-2.2) Triglycerides (48-352) mg/dL Cholesterol ( - 200) mg/dL LDL Cholesterol, Calc ( - 129) mg/dL VLDL Cholesterol mg/dL HDL Cholesterol (60 - ) mg/dL LDL/HDL Ratio (<3.6) Cholesterol/HDL Ratio (<5.0) Lipase 11 (11-82) U/L TSH (0.34-5.60) uIU/mL Nasal Influenza B PCR Nasal Influenza A PCR Nasal RSV (PCR) Nasal SARS-CoV-2 (PCR) - Current Medications Current Medications: Current Medications Generic Name Dose Route Start Last Admin Trade Name Freq PRN Reason Stop Dose Admin Hydromorphone HCl 0.5 mg 06/11/23 05:15 06/11/23 07:04 Hydromorphone 0.5 Mg/0.5 Ml Syringe IVP 0.5 mg Q4H PRN Administration Severe Pain (Level 7-10) Lactated Ringer's 1,000 mls @ 50 mls/hr 06/10/23 22:00 06/11/23 01:25 Lr IV 50 mls/hr .Q20H [facility] Infusion Piperacillin Sod/Tazobactam 100 mls @ 200 mls/hr 06/11/23 01:00 06/11/23 09:24 Sod 3.375 gm/ Sodium Chloride IV 200 mls/hr Q8H [facility] Administration Sodium Chloride 10 ml 06/10/23 21:27 06/10/23 22:13 Sodium Chloride Flush 0.9% 10 Ml Syringe IVP 10 ml PRN PRN Administration NEEDED PER PROVIDER ORDERS Sodium Chloride 10 ml 06/11/23 01:00 06/11/23 04:53 Sodium Chloride Flush 0.9% 10 Ml Syringe IVP 10 ml 0100,0900,1700 [facility] Administration Surgery Consult - Admit Date Hospital Admission Date: 06/10/23 - Home Meds/Allergies Home Medications: Patient History Medication Instructions Recorded Confirmed amLODIPine [Norvasc] 5 mg PO BID 03/22/19 05/25/23 Atorvastatin Calcium 40 mg PO DAILY 12/15/22 05/25/23 Empagliflozin [Jardiance] 10 mg PO DAILY 12/15/22 05/25/23 Amiodarone [Pacerone] 200 mg PO DAILY 02/05/23 05/25/23 Buspirone HCl 10 mg PO BID 02/05/23 05/25/23 Metoprolol Succinate [Toprol Xl] 25 mg PO DAILY 02/05/23 05/25/23 Omeprazole Magnesium 20 mg PO DAILY 02/05/23 05/25/23 Rivaroxaban [Xarelto] 20 mg PO QDDINNER 02/05/23 03/30/23 levoFLOXacin [Levaquin] 500 mg PO DAILY 02/05/23 03/30/23 lisinopriL [Zestril] 5 mg PO DAILY 02/05/23 05/25/23 Lidocaine/Prilocain 2.5% Cream See Rx Instructions .ROUTE .COMPLEX 05/26/23 05/26/23 [Emla 2.5% Cream] predniSONE [Prednisone] See Rx Instructions .ROUTE .COMPLEX 05/26/23 05/26/23 Allergies/Adverse Reactions: Allergies Allergy/AdvReac Type Severity Reaction Status Date / Time milk AdvReac gas Verified 06/10/23 15:55 - Vital Signs Vital Signs: Last Vital Signs Temp 36.2 C L 06/11/23 07:43 Pulse 85 06/11/23 07:43 Resp 12 06/11/23 07:43 BP 104/49 L 06/11/23 07:43 Pulse Ox 93 06/11/23 07:43 O2 Flow Rate 2 06/11/23 00:44 Intake & Output: Intake & Output 06/08/23 06/09/23 06/10/23 06/11/23 23:59 23:59 23:59 23:59 Intake Total 227.5 Output Total 1910 Balance -1682.5 - Lab Results Result Diagrams: 06/11/23 05:10 06/11/23 05:10
--- NOTE | 2023-06-11 10:17 | PROVIDER PROGRESS NOTE ---
Subjective - General Admit Date: 06/10/23 Procedure Performed: ADmitted overnight with NGT for SBO - Review of Systems Drain Type: NGT Drain Output Description: 1.3L thick gastric contents General: positive: Weakness HEENT: positive: No symptoms Pulmonary: positive: No symptoms Cardiovascular: positive: No symptoms Gastrointestinal: positive: Abdominal pain. negative: Flatus Genitourinary: positive: Retention (required straight cath overnight) Musculoskeletal: positive: No symptoms Skin: positive: No symptoms Psychiatric: positive: No symptoms - Other Other Information/Narrative: Admitted overnight with NGT - 1.3L thick gastric contents out. Flushed this mo rning with improved function as well. Patient does note slight improvement of L>R abdominal pain this morning. Patient reports straight cath for urinary retention/lower abdominal pain, has not voided since admission. Overnight (per hospitalist) obtained CT chest and started zosyn. Objective - Patient Data Reviewed Vital Signs: Yes Vital Signs: Vital Signs x48h Temp Pulse Resp BP Pulse Ox 06/11/23 07:43 36.2 C L 85 12 104/49 L 93 Weight: Weight 06/09/23 06/10/23 06/11/23 23:59 23:59 23:59 Weight (kg) 88.5 kg Intake & Output: Intake and Output Totals x24h 06/09/23 06/10/23 06/11/23 23:59 23:59 23:59 Intake Total 327.5 Output Total 1910 Balance -1582.5 - Lab Results Lab Results: 06/11/23 05:10 06/11/23 05:10 Other Lab Results: Lab Results x24hrs 06/11/23 06/11/23 06/11/23 Range/Units 05:10 05:10 03:10 WBC 17.7 H (4.8-10.8) x10^3/uL RBC 4.14 L (4.70-6.10) 10^6/uL Hgb 12.6 L (14.0-18.0) g/dL Hct 41.4 L (42.0-52.0) % MCV 100.0 H (80.0-94.0) fL MCH 30.4 (27.0-31.0) pg MCHC 30.4 L (32.0-36.0) g/dL RDW 17.2 H (12.0-15.0) % Plt Count 228 (130-450) 10^3/uL MPV 11.7 H (7.4-11.4) fL Neut # (Auto) 16.4 H (1.5-6.6) 10^3/uL Lymph # (Auto) 0.3 L (1.5-3.5) 10^3/uL [place] # (Auto) 0.7 (0.0-1.0) 10^3/uL Eos # (Auto) 0.3 (0.0-0.7) 10^3/uL Baso # (Auto) 0.1 (0.0-0.1) 10^3/uL Absolute Nucleated RBC 0.00 x10^3/uL Nucleated RBC % 0.0 /100WBC PT (9.9-12.6) secs INR (0.8-1.2) Sodium 140 (135-145) mmol/L Potassium 4.1 (3.5-4.5) mmol/L Chloride 104 (101-111) mmol/L Carbon Dioxide 21 (21-32) mmol/L Anion Gap 15.0 H (6-13) BUN 34 H (6-20) mg/dL Creatinine 1.7 H (0.6-1.3) mg/dL Estimated GFR (MDRD) 39 L (>89) Glucose 208 H (74-104) mg/dL Estimat Average Glucose (70-100) mg/dL Hemoglobin A1c % (4.27-6.07) % Lactic Acid (0.5-2.2) mmol/L Calcium 9.7 (8.5-10.3) mg/dL Magnesium 1.3 L (1.7-2.3) mg/dL Total Bilirubin 0.6 (0.2-1.0) mg/dL AST 10 (10-42) IU/L ALT 11 (10-60) IU/L Alkaline Phosphatase 66 (42-121) IU/L Total Protein 6.2 L (6.4-8.9) g/dL Albumin 4.0 (3.2-5.5) g/dL Globulin 2.2 (2.1-4.2) g/dL Albumin/Globulin Ratio 1.8 (1.0-2.2) Triglycerides (48-352) mg/dL Cholesterol ( - 200) mg/dL LDL Cholesterol, Calc ( - 129) mg/dL VLDL Cholesterol mg/dL HDL Cholesterol (60 - ) mg/dL LDL/HDL Ratio (<3.6) Cholesterol/HDL Ratio (<5.0) Lipase (11-82) U/L TSH (0.34-5.60) uIU/mL Nasal Influenza B PCR NOT DETECTED Nasal Influenza A PCR NOT DETECTED Nasal RSV (PCR) NOT DETECTED Nasal SARS-CoV-2 (PCR) NOT DETECTED 06/10/23 06/10/23 06/10/23 Range/Units 23:34 23:34 16:00 WBC (4.8-10.8) x10^3/uL RBC (4.70-6.10) 10^6/uL Hgb (14.0-18.0) g/dL Hct (42.0-52.0) % MCV (80.0-94.0) fL MCH (27.0-31.0) pg MCHC (32.0-36.0) g/dL RDW (12.0-15.0) % Plt Count (130-450) 10^3/uL MPV (7.4-11.4) fL Neut # (Auto) (1.5-6.6) 10^3/uL Lymph # (Auto) (1.5-3.5) 10^3/uL [place] # (Auto) (0.0-1.0) 10^3/uL Eos # (Auto) (0.0-0.7) 10^3/uL Baso # (Auto) (0.0-0.1) 10^3/uL Absolute Nucleated RBC x10^3/uL Nucleated RBC % /100WBC PT (9.9-12.6) secs INR (0.8-1.2) Sodium (135-145) mmol/L Potassium (3.5-4.5) mmol/L Chloride (101-111) mmol/L Carbon Dioxide (21-32) mmol/L Anion Gap (6-13) BUN (6-20) mg/dL Creatinine (0.6-1.3) mg/dL Estimated GFR (MDRD) (>89) Glucose (74-104) mg/dL Estimat Average Glucose 108 H (70-100) mg/dL Hemoglobin A1c % 5.4 (4.27-6.07) % Lactic Acid 1.8 (0.5-2.2) mmol/L Calcium (8.5-10.3) mg/dL Magnesium (1.7-2.3) mg/dL Total Bilirubin (0.2-1.0) mg/dL AST (10-42) IU/L ALT (10-60) IU/L Alkaline Phosphatase (42-121) IU/L Total Protein (6.4-8.9) g/dL Albumin (3.2-5.5) g/dL Globulin (2.1-4.2) g/dL Albumin/Globulin Ratio (1.0-2.2) Triglycerides 83 (48-352) mg/dL Cholesterol 144 ( - 200) mg/dL LDL Cholesterol, Calc 88 ( - 129) mg/dL VLDL Cholesterol 17 mg/dL HDL Cholesterol 39 L (60 - ) mg/dL LDL/HDL Ratio 2.3 (<3.6) Cholesterol/HDL Ratio 3.7 (<5.0) Lipase (11-82) U/L TSH 1.35 (0.34-5.60) uIU/mL Nasal Influenza B PCR Nasal Influenza A PCR Nasal RSV (PCR) Nasal SARS-CoV-2 (PCR) 06/10/23 06/10/23 06/10/23 Range/Units 16:00 15:45 15:45 WBC 14.2 H (4.8-10.8) x10^3/uL RBC 3.90 L (4.70-6.10) 10^6/uL Hgb 11.9 L (14.0-18.0) g/dL Hct 39.2 L (42.0-52.0) % MCV 100.5 H (80.0-94.0) fL MCH 30.5 (27.0-31.0) pg MCHC 30.4 L (32.0-36.0) g/dL RDW 17.2 H (12.0-15.0) % Plt Count 231 (130-450) 10^3/uL MPV 10.4 (7.4-11.4) fL Neut # (Auto) 12.7 H (1.5-6.6) 10^3/uL Lymph # (Auto) 0.8 L (1.5-3.5) 10^3/uL [place] # (Auto) 0.5 (0.0-1.0) 10^3/uL Eos # (Auto) 0.1 (0.0-0.7) 10^3/uL Baso # (Auto) 0.0 (0.0-0.1) 10^3/uL Absolute Nucleated RBC 0.00 x10^3/uL Nucleated RBC % 0.0 /100WBC PT 12.1 (9.9-12.6) secs INR 1.1 (0.8-1.2) Sodium 140 (135-145) mmol/L Potassium 3.7 (3.5-4.5) mmol/L Chloride 106 (101-111) mmol/L Carbon Dioxide 26 (21-32) mmol/L Anion Gap 8.0 (6-13) BUN 21 H (6-20) mg/dL Creatinine 1.1 (0.6-1.3) mg/dL Estimated GFR (MDRD) 64 L (>89) Glucose 144 H (74-104) mg/dL Estimat Average Glucose (70-100) mg/dL Hemoglobin A1c % (4.27-6.07) % Lactic Acid (0.5-2.2) mmol/L Calcium 9.5 (8.5-10.3) mg/dL Magnesium (1.7-2.3) mg/dL Total Bilirubin 0.3 (0.2-1.0) mg/dL AST 13 (10-42) IU/L ALT 13 (10-60) IU/L Alkaline Phosphatase 101 (42-121) IU/L Total Protein 6.5 (6.4-8.9) g/dL Albumin 4.2 (3.2-5.5) g/dL Globulin 2.3 (2.1-4.2) g/dL Albumin/Globulin Ratio 1.8 (1.0-2.2) Triglycerides (48-352) mg/dL Cholesterol ( - 200) mg/dL LDL Cholesterol, Calc ( - 129) mg/dL VLDL Cholesterol mg/dL HDL Cholesterol (60 - ) mg/dL LDL/HDL Ratio (<3.6) Cholesterol/HDL Ratio (<5.0) Lipase 11 (11-82) U/L TSH (0.34-5.60) uIU/mL Nasal Influenza B PCR Nasal Influenza A PCR Nasal RSV (PCR) Nasal SARS-CoV-2 (PCR) - Imaging Results Radiology Imaging: positive: EMP read indepedently (KUB this morning with decompressed SB and stomach, NGT in proper position.) - Current Medications Current Medications: Current Medications Generic Name Dose Route Start Last Admin Trade Name Freq PRN Reason Stop Dose Admin Hydromorphone HCl 0.5 mg 06/11/23 05:15 06/11/23 07:04 Hydromorphone 0.5 Mg/0.5 Ml Syringe IVP 0.5 mg Q4H PRN Administration Severe Pain (Level 7-10) Lactated Ringer's 1,000 mls @ 50 mls/hr 06/10/23 22:00 06/11/23 01:25 Lr IV 50 mls/hr .Q20H [facility] Infusion Piperacillin Sod/Tazobactam 100 mls @ 200 mls/hr 06/11/23 01:00 06/11/23 10:15 Sod 3.375 gm/ Sodium Chloride IV Infused Q8H [facility] Infusion Sodium Chloride 10 ml 06/10/23 21:27 06/10/23 22:13 Sodium Chloride Flush 0.9% 10 Ml Syringe IVP 10 ml PRN PRN Administration NEEDED PER PROVIDER ORDERS Sodium Chloride 10 ml 06/11/23 01:00 06/11/23 04:53 Sodium Chloride Flush 0.9% 10 Ml Syringe IVP 10 ml 0100,0900,1700 [facility] Administration - Physical Exam General Appearance: positive: Mild distress (less distress response to pain than in ED) Eyes Bilateral: positive: Normal inspection, PERRL ENT: positive: ENT inspection nml, Pharynx nml Neck: positive: Nml inspection, No JVD Respiratory: positive: Chest non-tender, No respiratory distress, Breath sounds nml Cardiovascular: positive: Regular rate & rhythm Abdomen: positive: No distention, Tenderness, Other (L>R abdominal tenderness but decreased amount of ttp from ED; distension has resolved with NGT) Skin: positive: Color nml, No rash, Warm, Dry Extremities: positive: Non-tender, Full ROM, Nml appearance Neurologic/Psychiatric: positive: Oriented x3, Mood/affect nml ABX Reporting Has patient been on IV antibiotics over the past 48 hours?: Yes Impression/Plan - Problem List Problem List: SBO/abdominal pain: Abdominal distension has resolved and L>R abdominal pain has improved somewhat with 12hrs of NGT decompression (1.3L thick gastric contents out). Remains HD normal, no tachycardia, however WBC increased from 14 to 17 and Creatinine up to 1.7 from 1.1. KUB this morning does align with physical exam in that the bowel appears decompressed (and NGT remains in good position). Looks like overnight hospitalist obtained ct chest and started zosyn - perhaps due to increased WBC. From my standpoint with regard to abdomen, do not feel abx are indicated. Patient did require straight cath overnight for retention, agree with Dr. Moura (discussed in person) that if required again a [place] placement would be helpful. Would be reasonable to check UA/UCx+/- blood cx for increased WBC, though without tachycardia suspicion for bacteremia is low. Will proceed with gastrograffin challenge today: - 120cc gastrograffin via NGT - clamp NGT x3 hrs, then return to [facility] - 1 hour later (or 4hrs from gastrograffin), obtain KUB to assess for progression of contrast - subsequent KUB 4-12hrs later, pending first KUB/clinical status Overall goal is nonoperative mgmt of SBO given recent completion of chemo, prednisone, anticoagulation, and CAD with EF of 30 (have not seen most recent echo specifically yet). However, may be beneficial to transition to lovenox or heparin as inpatient in the event that we are pushed to operate for his SBO. Spring Piper DO FACS general surgeon
[2023-06-11] MEDS: DIATRIZOATE MEGLU/DIATRIZO SOD 30 ML BOTTLE PO ONE (10:46)
[2023-06-11] MEDS: ONDANSETRON ODT 4 MG TABLET TL PRN (12:00)
[2023-06-11 14:02] LABS: BILIRUBIN,URINE NEGATIVE (NEGATIVE); GLUCOSE, URINE (UA) 500 mg/dL (NEGATIVE); KETONES,URINE (UA) TRACE mg/dL (NEGATIVE); LEUKOCYTE ESTERASE, URINE NEGATIVE (NEGATIVE); NITRITE,URINE NEGATIVE (NEGATIVE); OCCULT BLOOD,URINE TRACE-INTA (NEGATIVE); PH,URINE 5.5 PH (5.0-7.5); PROTEIN,URINE TRACE mg/dL (NEGATIVE); UROBILINOGEN,URINE 0.2 (NORMAL) E.U./dL (NORMAL)
[2023-06-11 14:15] LABS: BACTERIA,URINE Rare /HPF (None Seen); CLARITY,URINE CLEAR (CLEAR); RBC,URINE 0-5 /HPF (0-5); SQUAMOUS EPITHELIAL CELL,UR RARE Squamous (<= Few); WBC,URINE 0-3 /HPF (0-3)
[2023-06-11] MEDS: METOPROLOL SUCCINATE 25 MG TABLET PO SCH (14:25)
[2023-06-11] MEDS: AMIODARONE 200 MG TABLET PO SCH (14:25)
[2023-06-11] MEDS: PANTOPRAZOLE 40 MG TABLET PO SCH (14:25)
[2023-06-11] MEDS: ATORVASTATIN 40 MG TABLET PO SCH (14:25)
--- NOTE | 2023-06-11 15:12 | XRAY Report ---
PROCEDURE: No-Charge 1V Abdomen INDICATIONS: SBO, gastrograffin challenge TECHNIQUE: 1 view of the abdomen were acquired. COMPARISON: Prior plain film on 06/11/2023, 06/10/2023. CT, 06/10/2023 FINDINGS: Surgical changes and devices: The tip of the gastric tube can be seen overlying the distal stomach. Bowel: The administered Gastrografin can be seen within the stomach and within the proximal small bow el. Soft tissues: No masses; visualized solid organ contours appear normal in size. No suspicious abdom inal calcifications. Bones: No suspicious bony abnormalities. IMPRESSION: The administered Gastrografin can be seen only within the stomach and within the proximal small bowel . Please correlate with the timing of Gastrografin injection. Differential diagnosis includes continued small bowel obstruction versus an inadequate delay of imaging. If clinically appropriate, please consider follow-up plain films in 3 to 4 hours. Reviewed by: Nagi Briggs MD on 06/11/2023 2:11 PM [facility] Approved by: Nagi Briggs MD on 06/11/2023 2:11 PM [facility] Station ID: [id number]
--- NOTE | 2023-06-11 16:01 | PHARMACY PROGRESS NOTE ---
- Best Possible Medication History Admit Date and Time: 06/10/232126 Processed by: Pharmacy Medication History completed: Yes Patient Interview: Completed Secondary Source(s): Insurance records (reviewed pharmacy insurance records and pt participated in interview, pt bob is not taking amlodipine and rivaroxaban which were initially on home med list, prednisone and prochlorperazine on hold as were chemotherapy regimen meds) As the person ultimately responsible for medication therapy, providers are able to order a medication from an existing home medication list in [facility] via the "Reconcile Routine" prior to Confirmation of that medication by emotional support teacher. Such practice is discouraged except when the physician, in their clinical judgment, deems that a medical need exists for a medication without regard to previous use.
[2023-06-11] MEDS ORDERED: NON FORMULARY MED (Rivaroxaban [Xarelto] 20 MG Tablet) PO SCH (17:00)
[2023-06-11] MEDS: LACTATED RINGERS 1,000 ML IV SCH (17:50)
--- NOTE | 2023-06-11 20:32 | PROVIDER PROGRESS NOTE ---
Assessment/Plan - Problem List (1) Small bowel obstruction Assessment/Plan: This morning patient put out approximately 1200 mL from NG tube in total. Continue decompression with intermittent suction. Patient underwent went Gastrografin challenge today. At this point I do not have a reason to continue antibiotics. Urinalysis done today is not consistent with UTI.Zosyn discontinued. (2) Acute Kidney Injury BUN/creatinine has gone from 21/1.1-3 34.1.7. Urine output has significantly decreased. Patient required a straight cath and complained of difficulty urinating this afternoon. Wadsworth catheter has been placed. Continue to monitor creatinine. Avoid nephrotoxic agents if possible. 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 He has been getting treatment with rituximab and Cytoxan. (3) Coronary Artery Diseas (4) Cardiomyopathy Patient is status post CABG. Per Dr. Amaro's note last echocardiogram revealed an ejection fraction of 30%. Continue to monitor cardiac status. (5) Diabetes Mellitus Type 2 Sliding scale insulin. - Current Meds Current Meds: Current Medications Generic Name Dose Route Start Last Admin Trade Name Freq PRN Reason Stop Dose Admin Amiodarone HCl 200 mg 06/11/23 09:00 06/11/23 14:25 Amiodarone 200 Mg Tablet PO Not Given DAILY GILMAR Atorvastatin Calcium 40 mg 06/11/23 09:00 06/11/23 14:25 Atorvastatin 40 Mg Tablet PO Not Given DAILY GILMAR Lactated Ringer's 1,000 mls @ 100 mls/hr 06/11/23 17:03 06/11/23 17:50 Lr IV 100 mls/hr .Q10H GILMAR Administration Metoprolol Succinate 25 mg 06/11/23 09:00 06/11/23 14:25 Metoprolol Succinate 25 Mg Tablet PO Not Given DAILY GILMAR Ondansetron HCl 4 mg 06/10/23 21:25 06/11/23 12:00 Ondansetron Odt 4 Mg Tablet TL 4 mg Q6H PRN Administration Nausea / Vomiting Pantoprazole Sodium 40 mg 06/11/23 09:00 06/11/23 14:25 Pantoprazole 40 Mg Tablet PO Not Given DAILY GILMAR Sodium Chloride 10 ml 06/10/23 21:27 06/10/23 22:13 Sodium Chloride Flush 0.9% 10 Ml Syringe IVP 10 ml PRN PRN Administration NEEDED PER PROVIDER ORDERS Sodium Chloride 10 ml 06/11/23 01:00 06/11/23 16:31 Sodium Chloride Flush 0.9% 10 Ml Syringe IVP 10 ml 0100,0900,1700 GILMAR Administration - Lab Result Fish Bone Diagrams: 06/11/23 05:10 06/11/23 05:10 - Additional Planning My Orders: My Active Orders 06/11/23 13:47 Wadsworth Insertion [RC] QSHIFT 06/11/23 17:03 Lactated Ringers [Lr] 1,000 ml IV 100 mls/hr 06/11/23 20:18 BMP - BASIC METABOLIC PANEL [CHEM] Routine 06/11/23 20:20 Magnesium Sulfate 2 Gram [Magnesium Sulfate] 2 gm in 50 ml IV ONCE 06/11/23 20:22 HYDROmorphone 0.5MG SYRINGE [Dilaudid 0.5MG Syringe] 0.5 mg IVP Q2H PRN 06/11/23 21:00 Enoxaparin [Lovenox] 40 mg SUBQ DAILY 06/12/23 05:00 BMP - BASIC METABOLIC PANEL [CHEM] Routine CBC - COMP BLD CT W/AUTO DIFF [HEME] Routine MAGNESIUM [CHEM] Routine PHOSPHORUS [CHEM] Routine Subjective - Subjective Patient Reports: Other (Continues to complain of abdominal pain. No significant change from yesterday. No vomiting.) Objective Vital Signs: Vital Signs - 24 hr 06/10/23 06/10/23 06/10/23 21:00 22:07 22:12 Temperature 36.5 C Heart Rate 85 Heart Rate [ 101 H Brachial] Respiratory 21 18 Rate Blood Pressure 132/64 H Blood Pressure 165/79 H [Right Brachial artery] O2 Saturation 97 99 If not protocol 2 2 : Oxygen Flow, liters/minute 06/11/23 06/11/23 06/11/23 00:44 07:30 07:43 Temperature 36.6 C 36.2 C L Heart Rate Heart Rate [ 85 85 Brachial] Respiratory 18 12 Rate Blood Pressure Blood Pressure 102/53 L 104/49 L [Right Brachial artery] O2 Saturation 96 93 If not protocol 2 2 : Oxygen Flow, liters/minute 06/11/23 16:13 Temperature 36.6 C Heart Rate Heart Rate [ 110 H Brachial] Respiratory 16 Rate Blood Pressure Blood Pressure 104/53 L [Right Brachial artery] O2 Saturation 98 If not protocol : Oxygen Flow, liters/minute Oxygen O2 Source Room air I&O (Last 24 Hrs): Intake and Output Totals x24h 06/09/23 06/10/23 06/11/23 23:59 23:59 23:59 Intake Total 1552.5 Output Total 2710 Balance -1157.5 General: Alert, Cooperative HEENT: Atraumatic Neck: No JVD Neuro: Alert, Non Focal Cardiovascular: Other (Positive S1-S2 no extra heart sounds) Respiratory: Other (Good air exchange in all lung fermin no wheezing or crackles) Abdomen: Other (Abdomen is diffusely tender. Absent bowel sounds. Nondistended. Diffusely tender with palpation. No guarding.) Extremities: No cyanosis, No edema Skin: No rashes - Results Results: Laboratory Results WBC 17.7 x10^3/uL (4.8-10.8) H 06/11/23 05:10 RBC 4.14 10^6/uL (4.70-6.10) L 06/11/23 05:10 Hgb 12.6 g/dL (14.0-18.0) L 06/11/23 05:10 Hct 41.4 % (42.0-52.0) L 06/11/23 05:10 MCV 100.0 fL (80.0-94.0) H 06/11/23 05:10 MCH 30.4 pg (27.0-31.0) 06/11/23 05:10 MCHC 30.4 g/dL (32.0-36.0) L 06/11/23 05:10 RDW 17.2 % (12.0-15.0) H 06/11/23 05:10 Plt Count 228 10^3/uL (130-450) 06/11/23 05:10 MPV 11.7 fL (7.4-11.4) H 06/11/23 05:10 Neut # (Auto) 16.4 10^3/uL (1.5-6.6) H 06/11/23 05:10 Lymph # (Auto) 0.3 10^3/uL (1.5-3.5) L 06/11/23 05:10 [place] # (Auto) 0.7 10^3/uL (0.0-1.0) 06/11/23 05:10 Eos # (Auto) 0.3 10^3/uL (0.0-0.7) 06/11/23 05:10 Baso # (Auto) 0.1 10^3/uL (0.0-0.1) 06/11/23 05:10 Absolute Nucleated RBC 0.00 x10^3/uL 06/11/23 05:10 Nucleated RBC % 0.0 /100WBC 06/11/23 05:10 PT 12.1 secs (9.9-12.6) 06/10/23 15:45 INR 1.1 (0.8-1.2) 06/10/23 15:45 Sodium 140 mmol/L (135-145) 06/11/23 05:10 Potassium 4.1 mmol/L (3.5-4.5) 06/11/23 05:10 Chloride 104 mmol/L (101-111) 06/11/23 05:10 Carbon Dioxide 21 mmol/L (21-32) 06/11/23 05:10 Anion Gap 15.0 (6-13) H 06/11/23 05:10 BUN 34 mg/dL (6-20) H 06/11/23 05:10 Creatinine 1.7 mg/dL (0.6-1.3) H 06/11/23 05:10 Estimated GFR (MDRD) 39 (>89) L 06/11/23 05:10 Glucose 208 mg/dL (74-104) H 06/11/23 05:10 Estimat Average Glucose 108 mg/dL (70-100) H 06/10/23 23:34 Hemoglobin A1c % 5.4 % (4.27-6.07) 06/10/23 23:34 Lactic Acid 1.8 mmol/L (0.5-2.2) 06/10/23 16:00 Calcium 9.7 mg/dL (8.5-10.3) 06/11/23 05:10 Magnesium 1.3 mg/dL (1.7-2.3) L 06/11/23 05:10 Total Bilirubin 0.6 mg/dL (0.2-1.0) 06/11/23 05:10 AST 10 IU/L (10-42) 06/11/23 05:10 ALT 11 IU/L (10-60) 06/11/23 05:10 Alkaline Phosphatase 66 IU/L (42-121) 06/11/23 05:10 Total Protein 6.2 g/dL (6.4-8.9) L 06/11/23 05:10 Albumin 4.0 g/dL (3.2-5.5) 06/11/23 05:10 Globulin 2.2 g/dL (2.1-4.2) 06/11/23 05:10 Albumin/Globulin Ratio 1.8 (1.0-2.2) 06/11/23 05:10 Triglycerides 83 mg/dL (48-352) 06/10/23 23:34 Cholesterol 144 mg/dL (-200) 06/10/23 23:34 LDL Cholesterol, Calc 88 mg/dL (-129) 06/10/23 23:34 VLDL Cholesterol 17 mg/dL 06/10/23 23:34 HDL Cholesterol 39 mg/dL (60-) L 06/10/23 23:34 LDL/HDL Ratio 2.3 (<3.6) 06/10/23 23:34 Cholesterol/HDL Ratio 3.7 (<5.0) 06/10/23 23:34 Lipase 11 U/L (11-82) 06/10/23 16:00 TSH 1.35 uIU/mL (0.34-5.60) 06/10/23 23:34 Urine Color YELLOW 06/11/23 13:40 Urine Clarity CLEAR (CLEAR) 06/11/23 13:40 Urine pH 5.5 PH (5.0-7.5) 06/11/23 13:40 Ur Specific [place] 1.020 (1.002-1.030) 06/11/23 13:40 Urine Protein TRACE mg/dL (NEGATIVE) 06/11/23 13:40 Urine Glucose (UA) 500 mg/dL (NEGATIVE) H 06/11/23 13:40 Urine Ketones TRACE mg/dL (NEGATIVE) 06/11/23 13:40 Urine Occult Blood TRACE-INTA (NEGATIVE) 06/11/23 13:40 Urine Nitrite NEGATIVE (NEGATIVE) 06/11/23 13:40 Urine Bilirubin NEGATIVE (NEGATIVE) 06/11/23 13:40 Urine Urobilinogen 0.2 (NORMAL) E.U./dL (NORMAL) 06/11/23 13:40 Ur Leukocyte Esterase NEGATIVE (NEGATIVE) 06/11/23 13:40 Urine RBC 0-5 /HPF (0-5) 06/11/23 13:40 Urine WBC 0-3 /HPF (0-3) 06/11/23 13:40 Ur Squamous Epith Cells RARE Squamous (<= Few) 06/11/23 13:40 Urine Bacteria Rare /HPF (None Seen) 06/11/23 13:40 Urine Culture Comments NOT INDICATED 06/11/23 13:40 Nasal Influenza B PCR NOT DETECTED 06/11/23 03:10 Nasal Influenza A PCR NOT DETECTED 06/11/23 03:10 Nasal RSV (PCR) NOT DETECTED 06/11/23 03:10 Nasal SARS-CoV-2 (PCR) NOT DETECTED 06/11/23 03:10 - Procedures Procedures: Procedures ENDOSC POLYPECTOMY OF LG INTEST (11/08/12) INJECT/INFUSE NEC (11/08/12) INSPECTION OF LOWER INTESTINAL TRACT, ENDO (12/28/16) REPLACEMENT OF LEFT LENS WITH SYNTH SUB, PERC APPROACH (01/28/16) REPLACEMENT OF RIGHT LENS WITH SYNTH SUB, PERC APPROACH (01/07/16)
[2023-06-11] MEDS: ENOXAPARIN 40 MG/0.4 ML SYRINGE SUBQ SCH (21:18)
[2023-06-11] MEDS: MAGNESIUM SULFATE 2 GRAM 2 GM/50 ML BAG IV ONE (21:19)
[2023-06-11 21:24] LABS: CALCIUM 9.6 mg/dL (8.5-10.3); CREATININE 2.9 mg/dL (0.6-1.3); POTASSIUM 4.5 mmol/L (3.5-4.5)
[2023-06-12] MEDS: INSULIN REGULAR HUMAN 300 UNIT/3 ML VIAL SUBQ SCH (00:34)
[2023-06-12] MEDS: PHENOL THROAT SPRAY 177 ML MM PRN (00:37)
[2023-06-12] MEDS: HYDROcod/ACETAM 5/325 MG TABLET PO STA (02:54)
[2023-06-12 05:55] LABS: BASOPHILS % (AUTO) 0.1 %; HCT - HEMATOCRIT 34.7 % (42.0-52.0); HGB - HEMOGLOBIN 10.8 g/dL (14.0-18.0); LYMPHOCYTES # (AUTO) 0.2 10^3/uL (1.5-3.5); LYMPHOCYTES % (AUTO) 2.1 %; MEAN CORPUSCULAR HEMOGLOBIN 30.9 pg (27.0-31.0); MEAN CORPUSCULAR HGB CONC 31.1 g/dL (32.0-36.0); MEAN CORPUSCULAR VOLUME 99.1 fL (80.0-94.0); MEAN PLATELET VOLUME 11.7 fL (7.4-11.4); MONOCYTES # (AUTO) 0.4 10^3/uL (0.0-1.0); MONOCYTES % (AUTO) 3.4 %; NEUTROPHILS # (AUTO) 10.4 10^3/uL (1.5-6.6); PLT - PLATELET COUNT 167 10^3/uL (130-450); RED CELL DISTRIBUTION WIDTH 17.4 % (12.0-15.0); WHITE BLOOD COUNT 11.1 x10^3/uL (4.8-10.8)
[2023-06-12 06:16] LABS: CALCIUM 9.2 mg/dL (8.5-10.3); CREATININE 3.7 mg/dL (0.6-1.3); MAGNESIUM 1.9 mg/dL (1.7-2.3); PHOSPHORUS 6.2 mg/dL (2.5-5.0); POTASSIUM 4.6 mmol/L (3.5-4.5)
[2023-06-12 06:37] LABS: PLATELET ESTIMATE, MANUAL NORMAL (130-450,000) (NORMAL); PLATELET MORPHOLOGY NORMAL APPEARANCE (NORMAL); RBC MORPHOLOGY (MULTIPLE) NORMAL APPEARANCE (NORMAL)
[2023-06-12 06:38] LABS: DIFFERENTIAL COMMENT MANUAL=AUTO DIFF
--- NOTE | 2023-06-12 09:26 | XRAY Report ---
PROCEDURE: No-Charge 1V Abdomen INDICATIONS: SBO TECHNIQUE: 1 view of the abdomen were acquired. COMPARISON: 08/11/2023, 08/10/2023 FINDINGS: Surgical changes and devices: None. Bowel: On this image, contrast can be seen within the proximal colon. Soft tissues: No masses; visualized solid organ contours appear normal in size. No suspicious abdom inal calcifications. Bones: No suspicious bony abnormalities. Age-appropriate degenerative changes are seen. IMPRESSION: There is contrast seen within the proximal colon. This confirms no complete small bowel obstruction. Differential diagnosis includes high-grade ileus or partial small bowel obstruction. Reviewed by: Nagi Briggs MD on 06/12/2023 8:25 AM NEYDA Approved by: Nagi Briggs MD on 06/12/2023 8:25 AM NEYDA Station ID: [id number]
[2023-06-12] MEDS: LACTATED RINGERS 1,000 ML IV SCH (11:24)
--- NOTE | 2023-06-12 17:08 | PROVIDER PROGRESS NOTE ---
Subjective - General Admit Date: 06/10/23 - Review of Systems Drain Type: NGT Drain Output Description: 1.5-2L thick bilious fluid General: positive: Weakness HEENT: positive: No symptoms Pulmonary: positive: No symptoms Cardiovascular: positive: No symptoms Gastrointestinal: positive: Abdominal pain. negative: Flatus Musculoskeletal: positive: No symptoms Skin: positive: No symptoms Psychiatric: positive: No symptoms - Other Other Information/Narrative: Continued NGT decompression last 24hrs. Output still thick bilious fluid. Up in chair this morning, denies nausea, abdominal pain slightly improved, no flatus. Objective - Patient Data Reviewed Vital Signs: Yes Weight: Weight 06/10/23 06/11/23 06/12/23 23:59 23:59 23:59 Weight (kg) 88.5 kg Intake & Output: Intake and Output Totals x24h 06/10/23 06/11/23 06/12/23 23:59 23:59 23:59 Intake Total 2030.833 1761.400 Output Total 3120 1400 Balance -1089.167 361.400 - Lab Results Lab Results: 06/12/23 05:44 06/12/23 05:44 Other Lab Results: Lab Results x24hrs 06/12/23 06/12/23 06/12/23 Range/Units 11:45 05:58 05:44 WBC (4.8-10.8) x10^3/uL RBC (4.70-6.10) 10^6/uL Hgb (14.0-18.0) g/dL Hct (42.0-52.0) % MCV (80.0-94.0) fL MCH (27.0-31.0) pg MCHC (32.0-36.0) g/dL RDW (12.0-15.0) % Plt Count (130-450) 10^3/uL MPV (7.4-11.4) fL Neut # (Auto) (1.5-6.6) 10^3/uL Lymph # (Auto) (1.5-3.5) 10^3/uL [place] # (Auto) (0.0-1.0) 10^3/uL Eos # (Auto) (0.0-0.7) 10^3/uL Baso # (Auto) (0.0-0.1) 10^3/uL Absolute Nucleated RBC x10^3/uL Band Neuts % (Manual) Abnorm Lymph % (Manual) Nucleated RBC % /100WBC Neutrophils # (Manual) Lymphocytes # (Manual) Monocytes # (Manual) Eosinophils # (Manual) Basophils # (Manual) Differential Comment Platelet Estimate (NORMAL) Platelet Morphology (NORMAL) RBC Morph Micro Appear (NORMAL) Sodium (135-145) mmol/L Potassium (3.5-4.5) mmol/L Chloride (101-111) mmol/L Carbon Dioxide (21-32) mmol/L Anion Gap (6-13) BUN (6-20) mg/dL Creatinine (0.6-1.3) mg/dL Estimated GFR (MDRD) (>89) Glucose (74-104) mg/dL POC Whole Bld Glucose 105 H 123 H (70 - 100) mg/dL Lactic Acid 2.6 H (0.5-2.2) mmol/L Calcium (8.5-10.3) mg/dL Phosphorus (2.5-5.0) mg/dL Magnesium (1.7-2.3) mg/dL 06/12/23 06/12/23 06/11/23 Range/Units 05:44 05:44 23:44 WBC 11.1 H (4.8-10.8) x10^3/uL RBC 3.50 L (4.70-6.10) 10^6/uL Hgb 10.8 L (14.0-18.0) g/dL Hct 34.7 L (42.0-52.0) % MCV 99.1 H (80.0-94.0) fL MCH 30.9 (27.0-31.0) pg MCHC 31.1 L (32.0-36.0) g/dL RDW 17.4 H (12.0-15.0) % Plt Count 167 (130-450) 10^3/uL MPV 11.7 H (7.4-11.4) fL Neut # (Auto) 10.4 H (1.5-6.6) 10^3/uL Lymph # (Auto) 0.2 L (1.5-3.5) 10^3/uL [place] # (Auto) 0.4 (0.0-1.0) 10^3/uL Eos # (Auto) 0.0 (0.0-0.7) 10^3/uL Baso # (Auto) 0.0 (0.0-0.1) 10^3/uL Absolute Nucleated RBC 0.00 x10^3/uL Band Neuts % (Manual) Not Reportable Abnorm Lymph % (Manual) Not Reportable Nucleated RBC % 0.0 /100WBC Neutrophils # (Manual) Not Reportable Lymphocytes # (Manual) Not Reportable Monocytes # (Manual) Not Reportable Eosinophils # (Manual) Not Reportable Basophils # (Manual) Not Reportable Differential Comment MANUAL=AUTO DIFF Platelet Estimate NORMAL (130-450,000) (NORMAL) Platelet Morphology NORMAL APPEARANCE (NORMAL) RBC Morph Micro Appear NORMAL APPEARANCE (NORMAL) Sodium 141 (135-145) mmol/L Potassium 4.6 H (3.5-4.5) mmol/L Chloride 104 (101-111) mmol/L Carbon Dioxide 24 (21-32) mmol/L Anion Gap 13.0 (6-13) BUN 66 H (6-20) mg/dL Creatinine 3.7 H (0.6-1.3) mg/dL Estimated GFR (MDRD) 16 L (>89) Glucose 137 H (74-104) mg/dL POC Whole Bld Glucose 179 H (70 - 100) mg/dL Lactic Acid (0.5-2.2) mmol/L Calcium 9.2 (8.5-10.3) mg/dL Phosphorus 6.2 H (2.5-5.0) mg/dL Magnesium 1.9 (1.7-2.3) mg/dL 06/11/23 Range/Units 21:01 WBC (4.8-10.8) x10^3/uL RBC (4.70-6.10) 10^6/uL Hgb (14.0-18.0) g/dL Hct (42.0-52.0) % MCV (80.0-94.0) fL MCH (27.0-31.0) pg MCHC (32.0-36.0) g/dL RDW (12.0-15.0) % Plt Count (130-450) 10^3/uL MPV (7.4-11.4) fL Neut # (Auto) (1.5-6.6) 10^3/uL Lymph # (Auto) (1.5-3.5) 10^3/uL [place] # (Auto) (0.0-1.0) 10^3/uL Eos # (Auto) (0.0-0.7) 10^3/uL Baso # (Auto) (0.0-0.1) 10^3/uL Absolute Nucleated RBC x10^3/uL Band Neuts % (Manual) Abnorm Lymph % (Manual) Nucleated RBC % /100WBC Neutrophils # (Manual) Lymphocytes # (Manual) Monocytes # (Manual) Eosinophils # (Manual) Basophils # (Manual) Differential Comment Platelet Estimate (NORMAL) Platelet Morphology (NORMAL) RBC Morph Micro Appear (NORMAL) Sodium 140 (135-145) mmol/L Potassium 4.5 (3.5-4.5) mmol/L Chloride 103 (101-111) mmol/L Carbon Dioxide 22 (21-32) mmol/L Anion Gap 15.0 H (6-13) BUN 55 H (6-20) mg/dL Creatinine 2.9 H (0.6-1.3) mg/dL Estimated GFR (MDRD) 21 L (>89) Glucose 177 H (74-104) mg/dL POC Whole Bld Glucose (70 - 100) mg/dL Lactic Acid (0.5-2.2) mmol/L Calcium 9.6 (8.5-10.3) mg/dL Phosphorus (2.5-5.0) mg/dL Magnesium (1.7-2.3) mg/dL - Imaging Results Radiology Imaging: positive: EMP read indepedently (KUB this AM demonstrates passage of grastrograffin to hepatic flexure) - Current Medications Current Medications: Current Medications Generic Name Dose Route Start Last Admin Trade Name Freq PRN Reason Stop Dose Admin Amiodarone HCl 200 mg 06/11/23 09:00 06/12/23 08:17 Amiodarone 200 Mg Tablet PO 200 mg DAILY GILMAR Administration Atorvastatin Calcium 40 mg 06/11/23 09:00 06/12/23 08:17 Atorvastatin 40 Mg Tablet PO 40 mg DAILY GILMAR Administration Enoxaparin Sodium 40 mg 06/11/23 21:00 06/12/23 08:18 Enoxaparin 40 Mg/0.4 Ml Syringe SUBQ 40 mg DAILY GILMAR Administration Hydromorphone HCl 0.5 mg 06/11/23 20:22 06/12/23 14:53 Hydromorphone 0.5 Mg/0.5 Ml Syringe IVP 0.5 mg Q2H PRN Administration Severe Pain (Level 7-10) Lactated Ringer's 1,000 mls @ 150 mls/hr 06/12/23 07:59 06/12/23 11:24 Lr IV 150 mls/hr .Q6H40M GILMAR Administration Insulin Human Regular 1 - 9 unit 06/12/23 00:00 06/12/23 11:50 Insulin Regular Human 300 Unit/3 Ml Vial SUBQ Not Given Q6HR [facility] Protocol Metoprolol Succinate 25 mg 06/11/23 09:00 06/12/23 08:17 Metoprolol Succinate 25 Mg Tablet PO 25 mg DAILY GILMAR Administration Ondansetron HCl 4 mg 06/10/23 21:25 06/11/23 12:00 Ondansetron Odt 4 Mg Tablet TL 4 mg Q6H PRN Administration Nausea / Vomiting Pantoprazole Sodium 40 mg 06/11/23 09:00 06/12/23 08:17 Pantoprazole 40 Mg Tablet PO 40 mg DAILY GILMAR Administration Phenol/Menthol 2 sprays 06/12/23 00:13 06/12/23 05:22 Phenol Throat [place] 177 Ml MM 2 sprays Q2HR PRN Administration Throat Pain Sodium Chloride 10 ml 06/10/23 21:27 06/10/23 22:13 Sodium Chloride Flush 0.9% 10 Ml Syringe IVP 10 ml PRN PRN Administration NEEDED PER PROVIDER ORDERS Sodium Chloride 10 ml 06/11/23 01:00 06/12/23 08:18 Sodium Chloride Flush 0.9% 10 Ml Syringe IVP 10 ml 0100,0900,1700 GILMRA Administration - Physical Exam General Appearance: positive: No acute distress, Alert Eyes Bilateral: positive: Normal inspection, PERRL ENT: positive: ENT inspection nml, Pharynx nml Neck: positive: Nml inspection, No JVD Respiratory: positive: Chest non-tender, No respiratory distress, Breath sounds nml Cardiovascular: positive: Regular rate & rhythm Abdomen: positive: No distention, Tenderness (left sided abdominal tenderness, anticipatory with light palpation, no true guarding) Skin: positive: Color nml, No rash, Warm, Dry Extremities: positive: Non-tender, Full ROM, Nml appearance Neurologic/Psychiatric: positive: Oriented x3, Mood/affect nml ABX Reporting Has patient been on IV antibiotics over the past 48 hours?: Yes Impression/Plan - Problem List Problem List: SBO - Gastrograffin passed into colon (hepatic flexure) this morning, demonstrating resolution of SBO/obviating potential for surgical intervention. - WBC down to 11 from 17, though creatinine continues to rise - would recommend continuing NGT to LIWS until patient passes flatus, as there is still high volume thick bilious fluid draining (and maintaining NGT in place without LIWS is an aspiration risk). - once patient passing flatus, OK to DC NGT and start cautious trial of clears - no need for further KUBs - will continue to follow JOSUE - likely 2/2 hypovolemia in setting of SBO - fluid resuscitation along with copeland as per primary service Spring Piper DO, FACS General Surgeon
--- NOTE | 2023-06-12 22:08 | PROVIDER PROGRESS NOTE ---
Assessment/Plan - Problem List (1) Small bowel obstruction Assessment/Plan: Gastrografin has passed into the colon. It appears a small bowel obstruction is resolving. Continue to monitor. (2) Acute Kidney Injury BUN/creatinine has gone from 55/2.9 to 66/3.7. Continue to monitor creatinine. Avoid nephrotoxic agents if possible. 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 He has been getting treatment with rituximab and Cytoxan. (3) Coronary Artery Diseas (4) Cardiomyopathy Patient is status post CABG. Per Dr. Amaro's note last echocardiogram revealed an ejection fraction of 30%. Continue to monitor cardiac status. (5) Diabetes Mellitus Type 2 Sliding scale insulin. - Current Meds Current Meds: Current Medications Generic Name Dose Route Start Last Admin Trade Name Freq PRN Reason Stop Dose Admin Amiodarone HCl 200 mg 06/11/23 09:00 06/12/23 08:17 Amiodarone 200 Mg Tablet PO 200 mg DAILY GILMAR Administration Atorvastatin Calcium 40 mg 06/11/23 09:00 06/12/23 08:17 Atorvastatin 40 Mg Tablet PO 40 mg DAILY GILMAR Administration Enoxaparin Sodium 40 mg 06/11/23 21:00 06/12/23 08:18 Enoxaparin 40 Mg/0.4 Ml Syringe SUBQ 40 mg DAILY GILMAR Administration Hydromorphone HCl 0.5 mg 06/11/23 20:22 06/12/23 22:01 Hydromorphone 0.5 Mg/0.5 Ml Syringe IVP 0.5 mg Q2H PRN Administration Severe Pain (Level 7-10) Lactated Ringer's 1,000 mls @ 150 mls/hr 06/12/23 07:59 06/12/23 18:09 Lr IV 150 mls/hr .Q6H40M GIL[facility] Administration Insulin Human Regular 1 - 9 unit 06/12/23 00:00 06/12/23 17:56 Insulin Regular Human 300 Unit/3 Ml Vial SUBQ Not Given Q6HR [facility] Protocol Metoprolol Succinate 25 mg 06/11/23 09:00 06/12/23 08:17 Metoprolol Succinate 25 Mg Tablet PO 25 mg DAILY GILMAR Administration Ondansetron HCl 4 mg 06/10/23 21:25 06/11/23 12:00 Ondansetron Odt 4 Mg Tablet TL 4 mg Q6H PRN Administration Nausea / Vomiting Pantoprazole Sodium 40 mg 06/11/23 09:00 06/12/23 08:17 Pantoprazole 40 Mg Tablet PO 40 mg DAILY GILMAR Administration Phenol/Menthol 2 sprays 06/12/23 00:13 06/12/23 05:22 Phenol Throat [place] 177 Ml MM 2 sprays Q2HR PRN Administration Throat Pain Sodium Chloride 10 ml 06/10/23 21:27 06/10/23 22:13 Sodium Chloride Flush 0.9% 10 Ml Syringe IVP 10 ml PRN PRN Administration NEEDED PER PROVIDER ORDERS Sodium Chloride 10 ml 06/11/23 01:00 06/12/23 17:07 Sodium Chloride Flush 0.9% 10 Ml Syringe IVP Not Given 0100,0900,1700 GIL[facility] - Lab Result Fish Bone Diagrams: 06/12/23 05:44 06/12/23 05:44 - Additional Planning My Orders: My Active Orders 06/12/23 00:00 Insulin Regular Human [Humulin R] 1 - 9 unit SUBQ Q6HR 06/12/23 00:13 phenoL [Chloraseptic] 2 sprays MM Q2HR PRN 06/12/23 07:59 Lactated Ringers [Lr] 1,000 ml IV 150 mls/hr 06/12/23 08:00 Miscellaenous Nursing Order [RC] ONCE 06/12/23 14:49 HYDROcod/ACETAM 5/325 [[place] 5/325] 1 tab PO Q4HR PRN 06/13/23 05:00 BMP - BASIC METABOLIC PANEL [CHEM] Routine MG [MAGNESIUM] [CHEM] Routine Subjective - Subjective Patient Reports: Other (Alert. Pain is improved but has not resolved. He denies chest pain and shortness of breath. He has no other complaints at this time.) Objective Vital Signs: Vital Signs - 24 hr 06/11/23 06/12/23 06/12/23 23:50 00:08 01:40 Temperature 36.6 C Heart Rate [ 97 97 98 Brachial] Respiratory 16 16 Rate Blood Pressure 85/47 L 101/50 L 107/53 L [Right Brachial artery] O2 Saturation 93 95 06/12/23 06/12/23 06/12/23 02:51 07:57 16:00 Temperature 36.6 C 36.7 C Heart Rate [ 92 102 H 90 Brachial] Respiratory 15 18 20 Rate Blood Pressure 123/55 L 141/55 H 118/40 L [Right Brachial artery] O2 Saturation 95 97 96 Oxygen O2 Source Room air I&O (Last 24 Hrs): Intake and Output Totals x24h 06/10/23 06/11/23 06/12/23 23:59 23:59 23:59 Intake Total 2030.833 2761.400 Output Total 3120 2075 Balance -1089.167 686.400 General: Alert, Mild distress Neck: Supple, No JVD Neuro: Alert, Non Focal Cardiovascular: Other (Positive S1-S2 no extra heart sounds.) Respiratory: Other (Fair air exchange in all lung fermin no wheezing no crackles.) Abdomen: Other (Hypoactive bowel sounds. Abdomen is soft. No rebound, no guarding. Mild to moderate tenderness with deep palpation.) Extremities: No cyanosis, No edema Skin: No rashes - Results Results: Laboratory Results WBC 11.1 x10^3/uL (4.8-10.8) H 06/12/23 05:44 RBC 3.50 10^6/uL (4.70-6.10) L 06/12/23 05:44 Hgb 10.8 g/dL (14.0-18.0) L 06/12/23 05:44 Hct 34.7 % (42.0-52.0) L 06/12/23 05:44 MCV 99.1 fL (80.0-94.0) H 06/12/23 05:44 MCH 30.9 pg (27.0-31.0) 06/12/23 05:44 MCHC 31.1 g/dL (32.0-36.0) L 06/12/23 05:44 RDW 17.4 % (12.0-15.0) H 06/12/23 05:44 Plt Count 167 10^3/uL (130-450) 06/12/23 05:44 MPV 11.7 fL (7.4-11.4) H 06/12/23 05:44 Neut # (Auto) 10.4 10^3/uL (1.5-6.6) H 06/12/23 05:44 Lymph # (Auto) 0.2 10^3/uL (1.5-3.5) L 06/12/23 05:44 [place] # (Auto) 0.4 10^3/uL (0.0-1.0) 06/12/23 05:44 Eos # (Auto) 0.0 10^3/uL (0.0-0.7) 06/12/23 05:44 Baso # (Auto) 0.0 10^3/uL (0.0-0.1) 06/12/23 05:44 Absolute Nucleated RBC 0.00 x10^3/uL 06/12/23 05:44 Band Neuts % (Manual) Not Reportable 06/12/23 05:44 Abnorm Lymph % (Manual) Not Reportable 06/12/23 05:44 Nucleated RBC % 0.0 /100WBC 06/12/23 05:44 Neutrophils # (Manual) Not Reportable 06/12/23 05:44 Lymphocytes # (Manual) Not Reportable 06/12/23 05:44 Monocytes # (Manual) Not Reportable 06/12/23 05:44 Eosinophils # (Manual) Not Reportable 06/12/23 05:44 Basophils # (Manual) Not Reportable 06/12/23 05:44 Differential Comment MANUAL=AUTO DIFF 06/12/23 05:44 Platelet Estimate NORMAL (130-450,000) (NORMAL) 06/12/23 05:44 Platelet Morphology NORMAL APPEARANCE (NORMAL) 06/12/23 05:44 RBC Morph Micro Appear NORMAL APPEARANCE (NORMAL) 06/12/23 05:44 PT 12.1 secs (9.9-12.6) 06/10/23 15:45 INR 1.1 (0.8-1.2) 06/10/23 15:45 Sodium 141 mmol/L (135-145) 06/12/23 05:44 Potassium 4.6 mmol/L (3.5-4.5) H 06/12/23 05:44 Chloride 104 mmol/L (101-111) 06/12/23 05:44 Carbon Dioxide 24 mmol/L (21-32) 06/12/23 05:44 Anion Gap 13.0 (6-13) 06/12/23 05:44 BUN 66 mg/dL (6-20) H 06/12/23 05:44 Creatinine 3.7 mg/dL (0.6-1.3) H 06/12/23 05:44 Estimated GFR (MDRD) 16 (>89) L 06/12/23 05:44 Glucose 137 mg/dL (74-104) H 06/12/23 05:44 POC Whole Bld Glucose 87 mg/dL (70 - 100) 06/12/23 17:39 Estimat Average Glucose 108 mg/dL (70-100) H 06/10/23 23:34 Hemoglobin A1c % 5.4 % (4.27-6.07) 06/10/23 23:34 Lactic Acid 2.6 mmol/L (0.5-2.2) H 06/12/23 05:44 Calcium 9.2 mg/dL (8.5-10.3) 06/12/23 05:44 Phosphorus 6.2 mg/dL (2.5-5.0) H 06/12/23 05:44 Magnesium 1.9 mg/dL (1.7-2.3) 06/12/23 05:44 Total Bilirubin 0.6 mg/dL (0.2-1.0) 06/11/23 05:10 AST 10 IU/L (10-42) 06/11/23 05:10 ALT 11 IU/L (10-60) 06/11/23 05:10 Alkaline Phosphatase 66 IU/L (42-121) 06/11/23 05:10 Total Protein 6.2 g/dL (6.4-8.9) L 06/11/23 05:10 Albumin 4.0 g/dL (3.2-5.5) 06/11/23 05:10 Globulin 2.2 g/dL (2.1-4.2) 06/11/23 05:10 Albumin/Globulin Ratio 1.8 (1.0-2.2) 06/11/23 05:10 Triglycerides 83 mg/dL (48-352) 06/10/23 23:34 Cholesterol 144 mg/dL (-200) 06/10/23 23:34 LDL Cholesterol, Calc 88 mg/dL (-129) 06/10/23 23:34 VLDL Cholesterol 17 mg/dL 06/10/23 23:34 HDL Cholesterol 39 mg/dL (60-) L 06/10/23 23:34 LDL/HDL Ratio 2.3 (<3.6) 06/10/23 23:34 Cholesterol/HDL Ratio 3.7 (<5.0) 06/10/23 23:34 Lipase 11 U/L (11-82) 06/10/23 16:00 TSH 1.35 uIU/mL (0.34-5.60) 06/10/23 23:34 Urine Color YELLOW 06/11/23 13:40 Urine Clarity CLEAR (CLEAR) 06/11/23 13:40 Urine pH 5.5 PH (5.0-7.5) 06/11/23 13:40 Ur Specific [place] 1.020 (1.002-1.030) 06/11/23 13:40 Urine Protein TRACE mg/dL (NEGATIVE) 06/11/23 13:40 Urine Glucose (UA) 500 mg/dL (NEGATIVE) H 06/11/23 13:40 Urine Ketones TRACE mg/dL (NEGATIVE) 06/11/23 13:40 Urine Occult Blood TRACE-INTA (NEGATIVE) 06/11/23 13:40 Urine Nitrite NEGATIVE (NEGATIVE) 06/11/23 13:40 Urine Bilirubin NEGATIVE (NEGATIVE) 06/11/23 13:40 Urine Urobilinogen 0.2 (NORMAL) E.U./dL (NORMAL) 06/11/23 13:40 Ur Leukocyte Esterase NEGATIVE (NEGATIVE) 06/11/23 13:40 Urine RBC 0-5 /HPF (0-5) 06/11/23 13:40 Urine WBC 0-3 /HPF (0-3) 06/11/23 13:40 Ur Squamous Epith Cells RARE Squamous (<= Few) 06/11/23 13:40 Urine Bacteria Rare /HPF (None Seen) 06/11/23 13:40 Urine Culture Comments NOT INDICATED 06/11/23 13:40 Nasal Influenza B PCR NOT DETECTED 06/11/23 03:10 Nasal Influenza A PCR NOT DETECTED 06/11/23 03:10 Nasal RSV (PCR) NOT DETECTED 06/11/23 03:10 Nasal SARS-CoV-2 (PCR) NOT DETECTED 06/11/23 03:10 - Procedures Procedures: Procedures ENDOSC POLYPECTOMY OF LG INTEST (11/08/12) INJECT/INFUSE NEC (11/08/12) INSPECTION OF LOWER INTESTINAL TRACT, ENDO (12/28/16) REPLACEMENT OF LEFT LENS WITH SYNTH SUB, PERC APPROACH (01/28/16) REPLACEMENT OF RIGHT LENS WITH SYNTH SUB, PERC APPROACH (01/07/16)
--- NOTE | 2023-06-12 23:41 | XRAY Report ---
PROCEDURE: Chest for Line Placement INDICATIONS: check NGT placement TECHNIQUE: One view of the chest was acquired. COMPARISON: Abdominal radiograph 06/11/2023. FINDINGS: Surgical changes and devices: Left chest port catheter with tip projecting over the right atrium. En teric tube courses below the diaphragm with distal tip projecting over the gastric body. Median [place] otomy wires are present. Lungs and pleura: No pneumothorax. Low lung volumes bibasilar atelectasis or a small right pleural e ffusion Mediastinum: Mediastinal contours appear normal. Heart size is normal. Bones and chest wall: No suspicious bony lesions. Overlying soft tissues appear unremarkable. IMPRESSION: Enteric tube in appropriate position. Bibasilar atelectasis. Query small right pleural effusion. Reviewed by: Licha Lopez MD, PhD on 06/12/2023 11:39 PM PDT Approved by: Licha Lopez MD, PhD on 06/12/2023 11:39 PM PDT Station ID: [id number]
[2023-06-13] MEDS: HYDROcod/ACETAM 5/325 MG TABLET PO PRN (02:03)
[2023-06-13 05:54] LABS: CALCIUM 8.5 mg/dL (8.5-10.3); CREATININE 2.8 mg/dL (0.6-1.3); MAGNESIUM 1.9 mg/dL (1.7-2.3); POTASSIUM 3.5 mmol/L (3.5-4.5)
--- NOTE | 2023-06-13 12:08 | PROVIDER PROGRESS NOTE ---
Subjective - General Admit Date: 06/10/23 - Review of Systems Drain Type: NGT Drain Output Description: <500cc thin bilious fluid General: positive: Weakness HEENT: positive: No symptoms Pulmonary: positive: No symptoms Cardiovascular: positive: No symptoms Gastrointestinal: positive: No symptoms. negative: Abdominal pain, Flatus Genitourinary: positive: Retention (required straight cath overnight) Musculoskeletal: positive: No symptoms Skin: positive: No symptoms Psychiatric: positive: No symptoms - Other Other Information/Narrative: Continued NGT decompression last 24hrs after seeing contrast into right colon. Patient denies passage of flatus or stool yet, though also endorses NO abdominal pain this morning. NGT output has cleared from thick dark brown to think bilious fluid. HD normal, afebrile. Objective - Patient Data Reviewed Vital Signs: Yes Vital Signs: Vital Signs x48h Temp Pulse Resp BP Pulse Ox 06/13/23 08:00 36.6 C 86 20 109/46 L 93 06/13/23 04:29 113/47 L Intake & Output: Intake and Output Totals x24h 06/11/23 06/12/23 06/13/23 23:59 23:59 23:59 Intake Total 2030.833 3406.400 1475 Output Total 3120 2075 650 Balance -6859.586 6669.400 825 - Lab Results Lab Results: 06/12/23 05:44 06/13/23 05:02 Other Lab Results: Lab Results x24hrs 06/13/23 06/13/23 06/13/23 Range/Units 11:32 05:21 05:02 Sodium 141 (135-145) mmol/L Potassium 3.5 (3.5-4.5) mmol/L Chloride 107 (101-111) mmol/L Carbon Dioxide 24 (21-32) mmol/L Anion Gap 10.0 (6-13) BUN 70 H (6-20) mg/dL Creatinine 2.8 H (0.6-1.3) mg/dL Estimated GFR (MDRD) 22 L (>89) Glucose 99 (74-104) mg/dL POC Whole Bld Glucose 84 100 (70 - 100) mg/dL Calcium 8.5 (8.5-10.3) mg/dL Phosphorus 5.0 (2.5-5.0) mg/dL Magnesium 1.9 (1.7-2.3) mg/dL 06/13/23 06/12/23 Range/Units 00:13 17:39 Sodium (135-145) mmol/L Potassium (3.5-4.5) mmol/L Chloride (101-111) mmol/L Carbon Dioxide (21-32) mmol/L Anion Gap (6-13) BUN (6-20) mg/dL Creatinine (0.6-1.3) mg/dL Estimated GFR (MDRD) (>89) Glucose (74-104) mg/dL POC Whole Bld Glucose 105 H 87 (70 - 100) mg/dL Calcium (8.5-10.3) mg/dL Phosphorus (2.5-5.0) mg/dL Magnesium (1.7-2.3) mg/dL - Current Medications Current Medications: Current Medications Generic Name Dose Route Start Last Admin Trade Name Freq PRN Reason Stop Dose Admin Hydrocodone Bitart/Acetaminophen 1 tab 06/12/23 14:49 06/13/23 08:05 Hydrocod/Acetam 5/325 Mg Tablet PO 1 tab Q4HR PRN Administration Moderate Pain (Level 4-6) Amiodarone HCl 200 mg 06/11/23 09:00 06/13/23 08:06 Amiodarone 200 Mg Tablet PO 200 mg DAILY GILMAR Administration Atorvastatin Calcium 40 mg 06/11/23 09:00 06/13/23 08:06 Atorvastatin 40 Mg Tablet PO 40 mg DAILY GILMAR Administration Enoxaparin Sodium 40 mg 06/11/23 21:00 06/13/23 08:06 Enoxaparin 40 Mg/0.4 Ml Syringe SUBQ 40 mg DAILY GILMAR Administration Hydromorphone HCl 0.5 mg 06/11/23 20:22 06/13/23 04:30 Hydromorphone 0.5 Mg/0.5 Ml Syringe IVP 0.5 mg Q2H PRN Administration Severe Pain (Level 7-10) Lactated Ringer's 1,000 mls @ 150 mls/hr 06/12/23 07:59 06/13/23 08:06 Lr IV 150 mls/hr .Q6H40M GILMAR Administration Insulin Human Regular 1 - 9 unit 06/12/23 00:00 06/13/23 11:36 Insulin Regular Human 300 Unit/3 Ml Vial SUBQ Not Given Q6HR [facility] Protocol Metoprolol Succinate 25 mg 06/11/23 09:00 06/13/23 08:05 Metoprolol Succinate 25 Mg Tablet PO 25 mg DAILY GILMAR Administration Ondansetron HCl 4 mg 06/10/23 21:25 06/11/23 12:00 Ondansetron Odt 4 Mg Tablet TL 4 mg Q6H PRN Administration Nausea / Vomiting Pantoprazole Sodium 40 mg 06/11/23 09:00 06/13/23 08:06 Pantoprazole 40 Mg Tablet PO 40 mg DAILY GILMAR Administration Phenol/Menthol 2 sprays 06/12/23 00:13 06/13/23 08:06 Phenol Throat [place] 177 Ml MM 2 sprays Q2HR PRN Administration Throat Pain Sodium Chloride 10 ml 06/10/23 21:27 06/13/23 04:30 Sodium Chloride Flush 0.9% 10 Ml Syringe IVP 10 ml PRN PRN Administration NEEDED PER PROVIDER ORDERS Sodium Chloride 10 ml 06/11/23 01:00 06/13/23 08:06 Sodium Chloride Flush 0.9% 10 Ml Syringe IVP Not Given 0100,0900,1700 [facility] - Physical Exam General Appearance: positive: No acute distress, Alert Eyes Bilateral: positive: Normal inspection, PERRL ENT: positive: ENT inspection nml, Pharynx nml Neck: positive: Nml inspection, No JVD Respiratory: positive: Chest non-tender, No respiratory distress, Breath sounds nml Cardiovascular: positive: Regular rate & rhythm Abdomen: positive: Non-tender, No distention. negative: Tenderness Skin: positive: Color nml, No rash, Warm, Dry Extremities: positive: Non-tender, Full ROM, Nml appearance Neurologic/Psychiatric: positive: Oriented x3, Mood/affect nml Impression/Plan - Problem List Problem List: SBO - oral contrast passed into colon >24hrs ago, remains nondistended and NGT output is clearing, though awaiting flatus - continue NGT to LIWS until passage of flatus, then remove NGT and trial clears JOSUE 2/2 hypovolemia - UOP improved and Creatinine now downtrending - mgmt per primary service Spring Piper DO, FACS General Surgeon
[2023-06-13] MEDS ORDERED: DEXTROSE 50% ABBOJECT 25 GM/50 ML SYRINGE ONE (18:21)
[2023-06-13] MEDS ORDERED: DEXTROSE 40% GEL 37.5 GM TUBE ONE (18:25)
[2023-06-13] MEDS: DEXTROSE 40% GEL 37.5 GM TUBE PO ONE (18:38)
[2023-06-13] MEDS: DEXTROSE 5%-LACTATED RINGERS 1,000 ML IV SCH (21:03)
--- NOTE | 2023-06-13 21:54 | PROVIDER PROGRESS NOTE ---
Assessment/Plan - Problem List (1) Small bowel obstruction Assessment/Plan: Patient now reports passing flatus. Continue intermittent suction until the morning and turning off suction. (2) Acute Kidney Injury BUN/creatinine has gone from 66/3.7 to 70/2.8 Continue to monitor creatinine. Avoid nephrotoxic agents if possible. Decrease IV fluid to 100 mL/hour and add dextrose for low blood sugars. 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 He has been getting treatment with rituximab and Cytoxan. (3) Coronary Artery Diseas (4) Cardiomyopathy Patient is status post CABG. Per Dr. Amaro's note last echocardiogram revealed an ejection fraction of 30%. Continue to monitor cardiac status. (5) Diabetes Mellitus Type 2 Sliding scale insulin. - Current Meds Current Meds: Current Medications Generic Name Dose Route Start Last Admin Trade Name Freq PRN Reason Stop Dose Admin Hydrocodone Bitart/Acetaminophen 1 tab 06/12/23 14:49 06/13/23 19:17 Hydrocod/Acetam 5/325 Mg Tablet PO 1 tab Q4HR PRN Administration Moderate Pain (Level 4-6) Amiodarone HCl 200 mg 06/11/23 09:00 06/13/23 08:06 Amiodarone 200 Mg Tablet PO 200 mg DAILY GILMAR Administration Atorvastatin Calcium 40 mg 06/11/23 09:00 06/13/23 08:06 Atorvastatin 40 Mg Tablet PO 40 mg DAILY GILMAR Administration Enoxaparin Sodium 40 mg 06/11/23 21:00 06/13/23 08:06 Enoxaparin 40 Mg/0.4 Ml Syringe SUBQ 40 mg DAILY GILMAR Administration Hydromorphone HCl 0.5 mg 06/11/23 20:22 06/13/23 16:32 Hydromorphone 0.5 Mg/0.5 Ml Syringe IVP 0.5 mg Q2H PRN Administration Severe Pain (Level 7-10) Dextrose/Lactated Ringer's 1,000 mls @ 100 mls/hr 06/13/23 21:00 06/13/23 21:03 D5lr IV 100 mls/hr .Q10H GILMAR Administration Insulin Human Regular 1 - 9 unit 06/12/23 00:00 06/13/23 19:13 Insulin Regular Human 300 Unit/3 Ml Vial SUBQ Not Given Q6HR [facility] Protocol Metoprolol Succinate 25 mg 06/11/23 09:00 06/13/23 08:05 Metoprolol Succinate 25 Mg Tablet PO 25 mg DAILY GILMAR Administration Ondansetron HCl 4 mg 06/10/23 21:25 06/11/23 12:00 Ondansetron Odt 4 Mg Tablet TL 4 mg Q6H PRN Administration Nausea / Vomiting Pantoprazole Sodium 40 mg 06/11/23 09:00 06/13/23 08:06 Pantoprazole 40 Mg Tablet PO 40 mg DAILY GILMAR Administration Phenol/Menthol 2 sprays 06/12/23 00:13 06/13/23 13:02 Phenol Throat [place] 177 Ml MM 2 sprays Q2HR PRN Administration Throat Pain Sodium Chloride 10 ml 06/10/23 21:27 06/13/23 04:30 Sodium Chloride Flush 0.9% 10 Ml Syringe IVP 10 ml PRN PRN Administration NEEDED PER PROVIDER ORDERS Sodium Chloride 10 ml 06/11/23 01:00 06/13/23 21:39 Sodium Chloride Flush 0.9% 10 Ml Syringe IVP Not Given 0100,0900,1700 [facility] - Lab Result Fish Bone Diagrams: 06/12/23 05:44 06/13/23 05:02 - Additional Planning My Orders: My Active Orders 06/13/23 21:00 Dextrose 5%-Lactated Ringers [D5lr] 1,000 ml IV 100 mls/hr Subjective - Subjective Patient Reports: Other (Alert. He reports he is passing flatus. Pain has improved but has not resolved. He has no other complaints at this time.) Objective Vital Signs: Vital Signs - 24 hr 06/12/23 06/13/23 06/13/23 23:54 03:20 04:29 Temperature 36.5 C 36 C L Heart Rate [ 90 89 Brachial] Respiratory 20 22 Rate Blood Pressure 121/50 L 91/42 L 113/47 L [Right Brachial artery] O2 Saturation 100 93 06/13/23 06/13/23 08:00 15:47 Temperature 36.6 C 36.6 C Heart Rate [ 86 91 Brachial] Respiratory 20 22 Rate Blood Pressure 109/46 L 125/59 L [Right Brachial artery] O2 Saturation 93 95 Oxygen O2 Source Room air I&O (Last 24 Hrs): Intake and Output Totals x24h 06/11/23 06/12/23 06/13/23 23:59 23:59 23:59 Intake Total 2030.833 3406.400 3467.5 Output Total 3120 2075 1500 Balance -8528.857 2948.400 1967.5 General: Alert, No acute distress Neck: No JVD, No thyromegaly Neuro: Alert, Non Focal Cardiovascular: Other (Positive S1-S2 no extra heart sounds) Respiratory: Other (Good air exchange in all lung fermin no wheezing no crackles.) Abdomen: Other (Hypoactive bowel sounds soft nontender. Mildly distended.) Extremities: No cyanosis, No edema Skin: No rashes - Results Results: Laboratory Results WBC 11.1 x10^3/uL (4.8-10.8) H 06/12/23 05:44 RBC 3.50 10^6/uL (4.70-6.10) L 06/12/23 05:44 Hgb 10.8 g/dL (14.0-18.0) L 06/12/23 05:44 Hct 34.7 % (42.0-52.0) L 06/12/23 05:44 MCV 99.1 fL (80.0-94.0) H 06/12/23 05:44 MCH 30.9 pg (27.0-31.0) 06/12/23 05:44 MCHC 31.1 g/dL (32.0-36.0) L 06/12/23 05:44 RDW 17.4 % (12.0-15.0) H 06/12/23 05:44 Plt Count 167 10^3/uL (130-450) 06/12/23 05:44 MPV 11.7 fL (7.4-11.4) H 06/12/23 05:44 Neut # (Auto) 10.4 10^3/uL (1.5-6.6) H 06/12/23 05:44 Lymph # (Auto) 0.2 10^3/uL (1.5-3.5) L 06/12/23 05:44 [place] # (Auto) 0.4 10^3/uL (0.0-1.0) 06/12/23 05:44 Eos # (Auto) 0.0 10^3/uL (0.0-0.7) 06/12/23 05:44 Baso # (Auto) 0.0 10^3/uL (0.0-0.1) 06/12/23 05:44 Absolute Nucleated RBC 0.00 x10^3/uL 06/12/23 05:44 Band Neuts % (Manual) Not Reportable 06/12/23 05:44 Abnorm Lymph % (Manual) Not Reportable 06/12/23 05:44 Nucleated RBC % 0.0 /100WBC 06/12/23 05:44 Neutrophils # (Manual) Not Reportable 06/12/23 05:44 Lymphocytes # (Manual) Not Reportable 06/12/23 05:44 Monocytes # (Manual) Not Reportable 06/12/23 05:44 Eosinophils # (Manual) Not Reportable 06/12/23 05:44 Basophils # (Manual) Not Reportable 06/12/23 05:44 Differential Comment MANUAL=AUTO DIFF 06/12/23 05:44 Platelet Estimate NORMAL (130-450,000) (NORMAL) 06/12/23 05:44 Platelet Morphology NORMAL APPEARANCE (NORMAL) 06/12/23 05:44 RBC Morph Micro Appear NORMAL APPEARANCE (NORMAL) 06/12/23 05:44 PT 12.1 secs (9.9-12.6) 06/10/23 15:45 INR 1.1 (0.8-1.2) 06/10/23 15:45 Sodium 141 mmol/L (135-145) 06/13/23 05:02 Potassium 3.5 mmol/L (3.5-4.5) 06/13/23 05:02 Chloride 107 mmol/L (101-111) 06/13/23 05:02 Carbon Dioxide 24 mmol/L (21-32) 06/13/23 05:02 Anion Gap 10.0 (6-13) 06/13/23 05:02 BUN 70 mg/dL (6-20) H 06/13/23 05:02 Creatinine 2.8 mg/dL (0.6-1.3) H 06/13/23 05:02 Estimated GFR (MDRD) 22 (>89) L 06/13/23 05:02 Glucose 99 mg/dL (74-104) 06/13/23 05:02 POC Whole Bld Glucose 66 mg/dL (70 - 100) L 06/13/23 19:38 Estimat Average Glucose 108 mg/dL (70-100) H 06/10/23 23:34 Hemoglobin A1c % 5.4 % (4.27-6.07) 06/10/23 23:34 Lactic Acid 2.6 mmol/L (0.5-2.2) H 06/12/23 05:44 Calcium 8.5 mg/dL (8.5-10.3) 06/13/23 05:02 Phosphorus 5.0 mg/dL (2.5-5.0) 06/13/23 05:02 Magnesium 1.9 mg/dL (1.7-2.3) 06/13/23 05:02 Total Bilirubin 0.6 mg/dL (0.2-1.0) 06/11/23 05:10 AST 10 IU/L (10-42) 06/11/23 05:10 ALT 11 IU/L (10-60) 06/11/23 05:10 Alkaline Phosphatase 66 IU/L (42-121) 06/11/23 05:10 Total Protein 6.2 g/dL (6.4-8.9) L 06/11/23 05:10 Albumin 4.0 g/dL (3.2-5.5) 06/11/23 05:10 Globulin 2.2 g/dL (2.1-4.2) 06/11/23 05:10 Albumin/Globulin Ratio 1.8 (1.0-2.2) 06/11/23 05:10 Triglycerides 83 mg/dL (48-352) 06/10/23 23:34 Cholesterol 144 mg/dL (-200) 06/10/23 23:34 LDL Cholesterol, Calc 88 mg/dL (-129) 06/10/23 23:34 VLDL Cholesterol 17 mg/dL 06/10/23 23:34 HDL Cholesterol 39 mg/dL (60-) L 06/10/23 23:34 LDL/HDL Ratio 2.3 (<3.6) 06/10/23 23:34 Cholesterol/HDL Ratio 3.7 (<5.0) 06/10/23 23:34 Lipase 11 U/L (11-82) 06/10/23 16:00 TSH 1.35 uIU/mL (0.34-5.60) 06/10/23 23:34 Urine Color YELLOW 06/11/23 13:40 Urine Clarity CLEAR (CLEAR) 06/11/23 13:40 Urine pH 5.5 PH (5.0-7.5) 06/11/23 13:40 Ur Specific [place] 1.020 (1.002-1.030) 06/11/23 13:40 Urine Protein TRACE mg/dL (NEGATIVE) 06/11/23 13:40 Urine Glucose (UA) 500 mg/dL (NEGATIVE) H 06/11/23 13:40 Urine Ketones TRACE mg/dL (NEGATIVE) 06/11/23 13:40 Urine Occult Blood TRACE-INTA (NEGATIVE) 06/11/23 13:40 Urine Nitrite NEGATIVE (NEGATIVE) 06/11/23 13:40 Urine Bilirubin NEGATIVE (NEGATIVE) 06/11/23 13:40 Urine Urobilinogen 0.2 (NORMAL) E.U./dL (NORMAL) 06/11/23 13:40 Ur Leukocyte Esterase NEGATIVE (NEGATIVE) 06/11/23 13:40 Urine RBC 0-5 /HPF (0-5) 06/11/23 13:40 Urine WBC 0-3 /HPF (0-3) 06/11/23 13:40 Ur Squamous Epith Cells RARE Squamous (<= Few) 06/11/23 13:40 Urine Bacteria Rare /HPF (None Seen) 06/11/23 13:40 Urine Culture Comments NOT INDICATED 06/11/23 13:40 Nasal Influenza B PCR NOT DETECTED 06/11/23 03:10 Nasal Influenza A PCR NOT DETECTED 06/11/23 03:10 Nasal RSV (PCR) NOT DETECTED 06/11/23 03:10 Nasal SARS-CoV-2 (PCR) NOT DETECTED 06/11/23 03:10 - Procedures Procedures: Procedures ENDOSC POLYPECTOMY OF LG INTEST (11/08/12) INJECT/INFUSE NEC (11/08/12) INSPECTION OF LOWER INTESTINAL TRACT, ENDO (12/28/16) REPLACEMENT OF LEFT LENS WITH SYNTH SUB, PERC APPROACH (01/28/16) REPLACEMENT OF RIGHT LENS WITH SYNTH SUB, PERC APPROACH (01/07/16)
[2023-06-14 06:02] LABS: RED BLOOD COUNT 3.09 10^6/uL (4.70-6.10)
[2023-06-14 06:07] LABS: BASOPHILS % (AUTO) 0.3 %; EOSINOPHILS % (AUTO) 0.1 %; HCT - HEMATOCRIT 29.9 % (42.0-52.0); HGB - HEMOGLOBIN 9.4 g/dL (14.0-18.0); LYMPHOCYTES % (AUTO) 1.8 %; MEAN CORPUSCULAR HEMOGLOBIN 30.4 pg (27.0-31.0); MEAN CORPUSCULAR HGB CONC 31.4 g/dL (32.0-36.0); MEAN CORPUSCULAR VOLUME 96.8 fL (80.0-94.0); MEAN PLATELET VOLUME 11.5 fL (7.4-11.4); MONOCYTES % (AUTO) 3.2 %; NEUTROPHILS % (AUTO) 93.8 %; PLT - PLATELET COUNT 141 10^3/uL (130-450); RED CELL DISTRIBUTION WIDTH 17.6 % (12.0-15.0); WHITE BLOOD COUNT 7.8 x10^3/uL (4.8-10.8)
[2023-06-14 06:18] LABS: ABNORMAL LYMPHS % (MANUAL) 0 %
[2023-06-14 06:23] LABS: CALCIUM 8.5 mg/dL (8.5-10.3); CREATININE 1.4 mg/dL (0.6-1.3); POTASSIUM 3.2 mmol/L (3.5-4.5)
[2023-06-14 06:39] LABS: BAND NEUTROPHILS % (MANUAL) 19 %; DIFFERENTIAL COMMENT MANUAL DIFFERENTIAL; LYMPHOCYTES # (MANUAL) 0.2 10^3/uL (1.5-3.5); LYMPHOCYTES % (MANUAL) 2 %; MONOCYTES # (MANUAL) 0.1 10^3/uL (0.0-1.0); NEUTROPHILS # (MANUAL) 7.6 10^3/uL (1.5-6.6); PLATELET ESTIMATE, MANUAL NORMAL (130-450,000) (NORMAL); RBC MORPHOLOGY (MULTIPLE) NORMAL APPEARANCE (NORMAL)
[2023-06-14] MEDS: POTASSIUM CHLOR 10 MEQ/100 ML 10 MEQ/100 ML BAG IV SCH (08:06)
--- NOTE | 2023-06-14 09:07 | PROVIDER PROGRESS NOTE ---
Subjective - General Admit Date: 06/10/23 - Review of Systems Drain Type: NGT Drain Output Description: scant gastric fluid out over last 24hrs General: positive: Weakness HEENT: positive: No symptoms Pulmonary: positive: No symptoms Cardiovascular: positive: No symptoms Gastrointestinal: positive: No symptoms, Flatus. negative: Abdominal pain Genitourinary: positive: Retention (required straight cath overnight) Musculoskeletal: positive: No symptoms Skin: positive: No symptoms Psychiatric: positive: No symptoms - Other Other Information/Narrative: HDN/AF/VIDYA last 24hrs. NGT with scant gastric contents out and now passing flatus (no BM yet). Objective - Patient Data Reviewed Vital Signs: Yes Vital Signs: Vital Signs x48h Temp Pulse Resp BP Pulse Ox 06/14/23 07:32 36.7 C 84 20 124/56 L 96 06/14/23 02:56 18 128/55 L 96 Intake & Output: Intake and Output Totals x24h 06/12/23 06/13/23 06/14/23 23:59 23:59 23:59 Intake Total 3406.400 3649.167 945.000 Output Total 2075 1500 950 Balance 5420.706 5582.167 -5.000 - Lab Results Lab Results: 06/14/23 05:31 06/14/23 05:31 Other Lab Results: Lab Results x24hrs 06/14/23 06/14/23 06/14/23 Range/Units 05:39 05:31 05:31 WBC 7.8 (4.8-10.8) x10^3/uL RBC 3.09 L (4.70-6.10) 10^6/uL Hgb 9.4 L (14.0-18.0) g/dL Hct 29.9 L (42.0-52.0) % MCV 96.8 H (80.0-94.0) fL MCH 30.4 (27.0-31.0) pg MCHC 31.4 L (32.0-36.0) g/dL RDW 17.6 H (12.0-15.0) % Plt Count 141 (130-450) 10^3/uL MPV 11.5 H (7.4-11.4) fL Neut # (Auto) Not Reportable Lymph # (Auto) Not Reportable [place] # (Auto) Not Reportable Eos # (Auto) Not Reportable Baso # (Auto) Not Reportable Absolute Nucleated RBC Not Reportable Total Counted 100 Band Neuts % (Manual) 19 H (0 - 10) % Abnorm Lymph % (Manual) 0 % Nucleated RBC % Not Reportable Neutrophils # (Manual) 7.6 H (1.5-6.6) 10^3/uL Lymphocytes # (Manual) 0.2 L (1.5-3.5) 10^3/uL Monocytes # (Manual) 0.1 (0.0-1.0) 10^3/uL Eosinophils # (Manual) 0.0 (0-0.7) 10^3/uL Basophils # (Manual) 0.0 (0-0.1) 10^3/uL Differential Comment MANUAL DIFFERENTIAL Platelet Estimate NORMAL (130-450,000) (NORMAL) RBC Morph Micro Appear NORMAL APPEARANCE (NORMAL) Sodium 142 (135-145) mmol/L Potassium 3.2 L (3.5-4.5) mmol/L Chloride 110 (101-111) mmol/L Carbon Dioxide 25 (21-32) mmol/L Anion Gap 7.0 (6-13) BUN 43 H (6-20) mg/dL Creatinine 1.4 H (0.6-1.3) mg/dL Estimated GFR (MDRD) 48 L (>89) Glucose 116 H (74-104) mg/dL POC Whole Bld Glucose 114 H (70 - 100) mg/dL Calcium 8.5 (8.5-10.3) mg/dL 06/13/23 06/13/23 06/13/23 Range/Units 23:58 22:30 19:38 WBC (4.8-10.8) x10^3/uL RBC (4.70-6.10) 10^6/uL Hgb (14.0-18.0) g/dL Hct (42.0-52.0) % MCV (80.0-94.0) fL MCH (27.0-31.0) pg MCHC (32.0-36.0) g/dL RDW (12.0-15.0) % Plt Count (130-450) 10^3/uL MPV (7.4-11.4) fL Neut # (Auto) Lymph # (Auto) [place] # (Auto) Eos # (Auto) Baso # (Auto) Absolute Nucleated RBC Total Counted Band Neuts % (Manual) (0 - 10) % Abnorm Lymph % (Manual) % Nucleated RBC % Neutrophils # (Manual) (1.5-6.6) 10^3/uL Lymphocytes # (Manual) (1.5-3.5) 10^3/uL Monocytes # (Manual) (0.0-1.0) 10^3/uL Eosinophils # (Manual) (0-0.7) 10^3/uL Basophils # (Manual) (0-0.1) 10^3/uL Differential Comment Platelet Estimate (NORMAL) RBC Morph Micro Appear (NORMAL) Sodium (135-145) mmol/L Potassium (3.5-4.5) mmol/L Chloride (101-111) mmol/L Carbon Dioxide (21-32) mmol/L Anion Gap (6-13) BUN (6-20) mg/dL Creatinine (0.6-1.3) mg/dL Estimated GFR (MDRD) (>89) Glucose (74-104) mg/dL POC Whole Bld Glucose 105 H 95 66 L (70 - 100) mg/dL Calcium (8.5-10.3) mg/dL 06/13/23 06/13/23 06/13/23 Range/Units 19:01 18:35 18:16 WBC (4.8-10.8) x10^3/uL RBC (4.70-6.10) 10^6/uL Hgb (14.0-18.0) g/dL Hct (42.0-52.0) % MCV (80.0-94.0) fL MCH (27.0-31.0) pg MCHC (32.0-36.0) g/dL RDW (12.0-15.0) % Plt Count (130-450) 10^3/uL MPV (7.4-11.4) fL Neut # (Auto) Lymph # (Auto) [place] # (Auto) Eos # (Auto) Baso # (Auto) Absolute Nucleated RBC Total Counted Band Neuts % (Manual) (0 - 10) % Abnorm Lymph % (Manual) % Nucleated RBC % Neutrophils # (Manual) (1.5-6.6) 10^3/uL Lymphocytes # (Manual) (1.5-3.5) 10^3/uL Monocytes # (Manual) (0.0-1.0) 10^3/uL Eosinophils # (Manual) (0-0.7) 10^3/uL Basophils # (Manual) (0-0.1) 10^3/uL Differential Comment Platelet Estimate (NORMAL) RBC Morph Micro Appear (NORMAL) Sodium (135-145) mmol/L Potassium (3.5-4.5) mmol/L Chloride (101-111) mmol/L Carbon Dioxide (21-32) mmol/L Anion Gap (6-13) BUN (6-20) mg/dL Creatinine (0.6-1.3) mg/dL Estimated GFR (MDRD) (>89) Glucose (74-104) mg/dL POC Whole Bld Glucose 62 L 66 L 66 L (70 - 100) mg/dL Calcium (8.5-10.3) mg/dL 06/13/23 06/13/23 Range/Units 18:04 11:32 WBC (4.8-10.8) x10^3/uL RBC (4.70-6.10) 10^6/uL Hgb (14.0-18.0) g/dL Hct (42.0-52.0) % MCV (80.0-94.0) fL MCH (27.0-31.0) pg MCHC (32.0-36.0) g/dL RDW (12.0-15.0) % Plt Count (130-450) 10^3/uL MPV (7.4-11.4) fL Neut # (Auto) Lymph # (Auto) [place] # (Auto) Eos # (Auto) Baso # (Auto) Absolute Nucleated RBC Total Counted Band Neuts % (Manual) (0 - 10) % Abnorm Lymph % (Manual) % Nucleated RBC % Neutrophils # (Manual) (1.5-6.6) 10^3/uL Lymphocytes # (Manual) (1.5-3.5) 10^3/uL Monocytes # (Manual) (0.0-1.0) 10^3/uL Eosinophils # (Manual) (0-0.7) 10^3/uL Basophils # (Manual) (0-0.1) 10^3/uL Differential Comment Platelet Estimate (NORMAL) RBC Morph Micro Appear (NORMAL) Sodium (135-145) mmol/L Potassium (3.5-4.5) mmol/L Chloride (101-111) mmol/L Carbon Dioxide (21-32) mmol/L Anion Gap (6-13) BUN (6-20) mg/dL Creatinine (0.6-1.3) mg/dL Estimated GFR (MDRD) (>89) Glucose (74-104) mg/dL POC Whole Bld Glucose 61 L 84 (70 - 100) mg/dL Calcium (8.5-10.3) mg/dL - Current Medications Current Medications: Current Medications Generic Name Dose Route Start Last Admin Trade Name Freq PRN Reason Stop Dose Admin Hydrocodone Bitart/Acetaminophen 1 tab 06/12/23 14:49 06/14/23 03:00 Hydrocod/Acetam 5/325 Mg Tablet PO 1 tab Q4HR PRN Administration Moderate Pain (Level 4-6) Amiodarone HCl 200 mg 06/11/23 09:00 06/14/23 08:06 Amiodarone 200 Mg Tablet PO 200 mg DAILY GILMAR Administration Atorvastatin Calcium 40 mg 06/11/23 09:00 06/14/23 08:06 Atorvastatin 40 Mg Tablet PO 40 mg DAILY GILMAR Administration Enoxaparin Sodium 40 mg 06/11/23 21:00 06/14/23 08:06 Enoxaparin 40 Mg/0.4 Ml Syringe SUBQ 40 mg DAILY GILMAR Administration Hydromorphone HCl 0.5 mg 06/11/23 20:22 06/14/23 08:07 Hydromorphone 0.5 Mg/0.5 Ml Syringe IVP 0.5 mg Q2H PRN Administration Severe Pain (Level 7-10) Dextrose/Lactated Ringer's 1,000 mls @ 100 mls/hr 06/13/23 21:00 06/14/23 08:07 D5lr IV 0 mls/hr .Q10H G[facility]MAR Infusion Potassium Chloride 10 meq in 100 mls @ 100 mls/hr 06/14/23 08:00 06/14/23 08:06 Potassium Chloride IV 06/14/23 09:59 100 mls/hr Q1H GILMAR Administration Insulin Human Regular 1 - 9 unit 06/12/23 00:00 06/14/23 05:40 Insulin Regular Human 300 Unit/3 Ml Vial SUBQ Not Given Q6HR [facility] Protocol Metoprolol Succinate 25 mg 06/11/23 09:00 06/14/23 08:06 Metoprolol Succinate 25 Mg Tablet PO 25 mg DAILY GILMAR Administration Ondansetron HCl 4 mg 06/10/23 21:25 06/11/23 12:00 Ondansetron Odt 4 Mg Tablet TL 4 mg Q6H PRN Administration Nausea / Vomiting Pantoprazole Sodium 40 mg 06/11/23 09:00 06/14/23 08:06 Pantoprazole 40 Mg Tablet PO 40 mg DAILY [facility] Administration Phenol/Menthol 2 sprays 06/12/23 00:13 06/14/23 01:27 Phenol Throat [place] 177 Ml MM 2 sprays Q2HR PRN Administration Throat Pain Sodium Chloride 10 ml 06/10/23 21:27 06/13/23 04:30 Sodium Chloride Flush 0.9% 10 Ml Syringe IVP 10 ml PRN PRN Administration NEEDED PER PROVIDER ORDERS Sodium Chloride 10 ml 06/11/23 01:00 06/14/23 08:07 Sodium Chloride Flush 0.9% 10 Ml Syringe IVP 10 ml 0100,0900,1700 [facility] Administration - Physical Exam General Appearance: positive: No acute distress, Alert Eyes Bilateral: positive: Normal inspection, PERRL ENT: positive: ENT inspection nml, Pharynx nml Neck: positive: Nml inspection, No JVD Respiratory: positive: Chest non-tender, No respiratory distress, Breath sounds nml Cardiovascular: positive: Regular rate & rhythm Abdomen: positive: Non-tender, No distention Skin: positive: Color nml, No rash, Warm, Dry Extremities: positive: Non-tender, Full ROM, Nml appearance Neurologic/Psychiatric: positive: Oriented x3, Mood/affect nml Impression/Plan - Problem List Problem List: SBO - resolving (Nominal NGT output, + flatus) - DC NGT - trial of clear liquids - replace potassium JOSUE 2/2 hypovolemia - resolving (creatinine down to 1.4) - IVF per IM, though able to start clear liquids today Spring Piper DO FACS General Surgeon
--- NOTE | 2023-06-14 12:56 | PROVIDER PROGRESS NOTE ---
Assessment/Plan - Problem List (1) Small bowel obstruction Assessment/Plan: --Case discussed with general surgery. NGT removed today and will trial clears. --Ambulate TID, [place] removed. (2) CAD (coronary artery disease) Qualifiers: Coronary Disease-Associated Artery/Lesion type: [place] artery [place] vs. transplanted heart: [place] heart Associated angina: with stable angina Qualified Code(s): I25.118 - Atherosclerotic heart disease of [place] coronary artery with other forms of angina pectoris Assessment/Plan: --Continue metoprolol and atorvastatin. (3) DM type 2 (diabetes mellitus, type 2) Qualifiers: Diabetes mellitus long term care administrator insulin use: unspecified [place] [facility] insulin use status Diabetes mellitus complication status: without complication Qualified Code(s): E11.9 - Type 2 diabetes mellitus without complications Assessment/Plan: --Continue sliding scale insulin. (4) GERD (gastroesophageal reflux disease) Assessment/Plan: --Continue protonix. (5) HTN (hypertension) Qualifiers: Hypertension type: primary hypertension Qualified Code(s): I10 - Essential (primary) hypertension Assessment/Plan: --Continue metoprolol. (6) Atrial fibrillation Assessment/Plan: --Continue amiodarone. No anticoagulation on his home medication list. - Current Meds Current Meds: Current Medications Generic Name Dose Route Start Last Admin Trade Name Freq PRN Reason Stop Dose Admin Hydrocodone Bitart/Acetaminophen 1 tab 06/12/23 14:49 06/14/23 03:00 Hydrocod/Acetam 5/325 Mg Tablet PO 1 tab Q4HR PRN Administration Moderate Pain (Level 4-6) Amiodarone HCl 200 mg 06/11/23 09:00 06/14/23 08:06 Amiodarone 200 Mg Tablet PO 200 mg DAILY GILMAR Administration Atorvastatin Calcium 40 mg 06/11/23 09:00 06/14/23 08:06 Atorvastatin 40 Mg Tablet PO 40 mg DAILY GILMAR Administration Enoxaparin Sodium 40 mg 06/11/23 21:00 06/14/23 08:06 Enoxaparin 40 Mg/0.4 Ml Syringe SUBQ 40 mg DAILY GILMAR Administration Hydromorphone HCl 0.5 mg 06/11/23 20:22 06/14/23 08:07 Hydromorphone 0.5 Mg/0.5 Ml Syringe IVP 0.5 mg Q2H PRN Administration Severe Pain (Level 7-10) Dextrose/Lactated Ringer's 1,000 mls @ 100 mls/hr 06/13/23 21:00 06/14/23 10:50 D5lr IV 100 mls/hr .Q10H [facility] Infusion Insulin Human Regular 1 - 9 unit 06/12/23 00:00 06/14/23 11:51 Insulin Regular Human 300 Unit/3 Ml Vial SUBQ Not Given Q6HR [facility]IL[facility] Protocol Metoprolol Succinate 25 mg 06/11/23 09:00 06/14/23 08:06 Metoprolol Succinate 25 Mg Tablet PO 25 mg DAILY GILMAR Administration Ondansetron HCl 4 mg 06/10/23 21:25 06/11/23 12:00 Ondansetron Odt 4 Mg Tablet TL 4 mg Q6H PRN Administration Nausea / Vomiting Pantoprazole Sodium 40 mg 06/11/23 09:00 06/14/23 08:06 Pantoprazole 40 Mg Tablet PO 40 mg DAILY GILMAR Administration Phenol/Menthol 2 sprays 06/12/23 00:13 06/14/23 01:27 Phenol Throat [place] 177 Ml MM 2 sprays Q2HR PRN Administration Throat Pain Sodium Chloride 10 ml 06/10/23 21:27 06/13/23 04:30 Sodium Chloride Flush 0.9% 10 Ml Syringe IVP 10 ml PRN PRN Administration NEEDED PER PROVIDER ORDERS Sodium Chloride 10 ml 06/11/23 01:00 06/14/23 08:07 Sodium Chloride Flush 0.9% 10 Ml Syringe IVP 10 ml 0100,0900,1700 GILMAR Administration - Lab Result Fish Bone Diagrams: 06/14/23 05:31 06/14/23 05:31 - Additional Planning My Orders: My Active Orders 06/14/23 Lunch Clear Liquid Diet [DIET] 06/15/23 05:00 BMP - BASIC METABOLIC PANEL [CHEM] DAILYLAB CBC [CBC - COMP BLD CT W/AUTO DIFF] [HEME] DAILYLAB 06/16/23 05:00 BMP - BASIC METABOLIC PANEL [CHEM] DAILYLAB CBC [CBC - COMP BLD CT W/AUTO DIFF] [HEME] DAILYLAB 06/17/23 05:00 BMP - BASIC METABOLIC PANEL [CHEM] DAILYLAB CBC [CBC - COMP BLD CT W/AUTO DIFF] [HEME] DAILYLAB 06/18/23 05:00 BMP - BASIC METABOLIC PANEL [CHEM] DAILYLAB CBC [CBC - COMP BLD CT W/AUTO DIFF] [HEME] DAILYLAB Subjective - Subjective Patient Reports: Feeling Better Objective Vital Signs: Vital Signs - 24 hr 06/13/23 06/14/23 06/14/23 15:47 00:00 02:56 Temperature 36.6 C 36.7 C Heart Rate [ 91 85 Brachial] Respiratory 22 15 18 Rate Blood Pressure 125/59 L 112/51 L 128/55 L [Right Brach[place] artery] O2 Saturation 95 92 96 If not protocol 2 : Oxygen Flow, liters/minute 06/14/23 07:32 Temperature 36.7 C Heart Rate [ 84 Brachial] Respiratory 20 Rate Blood Pressure 124/56 L [Right Brach[place] artery] O2 Saturation 96 If not protocol : Oxygen Flow, liters/minute Oxygen O2 Source Room air I&O (Last 24 Hrs): Intake and Output Totals x24h 06/12/23 06/13/23 06/14/23 23:59 23:59 23:59 Intake Total 3406.400 3649.167 1145.000 Output Total 2075 1500 950 Balance 2311.756 3409.167 195.000 General: Alert, Oriented x3, Cooperative, No acute distress Neuro: Alert Abdomen: Normal bowel sounds, Soft Extremities: No edema - Results Results: Laboratory Results WBC 7.8 x10^3/uL (4.8-10.8) 06/14/23 05:31 RBC 3.09 10^6/uL (4.70-6.10) L 06/14/23 05:31 Hgb 9.4 g/dL (14.0-18.0) L 06/14/23 05:31 Hct 29.9 % (42.0-52.0) L 06/14/23 05:31 MCV 96.8 fL (80.0-94.0) H 06/14/23 05:31 MCH 30.4 pg (27.0-31.0) 06/14/23 05:31 MCHC 31.4 g/dL (32.0-36.0) L 06/14/23 05:31 RDW 17.6 % (12.0-15.0) H 06/14/23 05:31 Plt Count 141 10^3/uL (130-450) 06/14/23 05:31 MPV 11.5 fL (7.4-11.4) H 06/14/23 05:31 Neut # (Auto) Not Reportable 06/14/23 05:31 Lymph # (Auto) Not Reportable 06/14/23 05:31 [place] # (Auto) Not Reportable 06/14/23 05:31 Eos # (Auto) Not Reportable 06/14/23 05:31 Baso # (Auto) Not Reportable 06/14/23 05:31 Absolute Nucleated RBC Not Reportable 06/14/23 05:31 Total Counted 100 06/14/23 05:31 Band Neuts % (Manual) 19 % (0-10) H 06/14/23 05:31 Abnorm Lymph % (Manual) 0 % 06/14/23 05:31 Nucleated RBC % Not Reportable 06/14/23 05:31 Neutrophils # (Manual) 7.6 10^3/uL (1.5-6.6) H 06/14/23 05:31 Lymphocytes # (Manual) 0.2 10^3/uL (1.5-3.5) L 06/14/23 05:31 Monocytes # (Manual) 0.1 10^3/uL (0.0-1.0) 06/14/23 05:31 Eosinophils # (Manual) 0.0 10^3/uL (0-0.7) 06/14/23 05:31 Basophils # (Manual) 0.0 10^3/uL (0-0.1) 06/14/23 05:31 Differential Comment MANUAL DIFFERENTIAL 06/14/23 05:31 Platelet Estimate NORMAL (130-450,000) (NORMAL) 06/14/23 05:31 Platelet Morphology NORMAL APPEARANCE (NORMAL) 06/12/23 05:44 RBC Morph Micro Appear NORMAL APPEARANCE (NORMAL) 06/14/23 05:31 PT 12.1 secs (9.9-12.6) 06/10/23 15:45 INR 1.1 (0.8-1.2) 06/10/23 15:45 Sodium 142 mmol/L (135-145) 06/14/23 05:31 Potassium 3.2 mmol/L (3.5-4.5) L 06/14/23 05:31 Chloride 110 mmol/L (101-111) 06/14/23 05:31 Carbon Dioxide 25 mmol/L (21-32) 06/14/23 05:31 Anion Gap 7.0 (6-13) 06/14/23 05:31 BUN 43 mg/dL (6-20) H 06/14/23 05:31 Creatinine 1.4 mg/dL (0.6-1.3) H 06/14/23 05:31 Estimated GFR (MDRD) 48 (>89) L 06/14/23 05:31 Glucose 116 mg/dL (74-104) H 06/14/23 05:31 POC Whole Bld Glucose 115 mg/dL (70 - 100) H 06/14/23 11:19 Estimat Average Glucose 108 mg/dL (70-100) H 06/10/23 23:34 Hemoglobin A1c % 5.4 % (4.27-6.07) 06/10/23 23:34 Lactic Acid 2.6 mmol/L (0.5-2.2) H 06/12/23 05:44 Calcium 8.5 mg/dL (8.5-10.3) 06/14/23 05:31 Phosphorus 5.0 mg/dL (2.5-5.0) 06/13/23 05:02 Magnesium 1.9 mg/dL (1.7-2.3) 06/13/23 05:02 Total Bilirubin 0.6 mg/dL (0.2-1.0) 06/11/23 05:10 AST 10 IU/L (10-42) 06/11/23 05:10 ALT 11 IU/L (10-60) 06/11/23 05:10 Alkaline Phosphatase 66 IU/L (42-121) 06/11/23 05:10 Total Protein 6.2 g/dL (6.4-8.9) L 06/11/23 05:10 Albumin 4.0 g/dL (3.2-5.5) 06/11/23 05:10 Globulin 2.2 g/dL (2.1-4.2) 06/11/23 05:10 Albumin/Globulin Ratio 1.8 (1.0-2.2) 06/11/23 05:10 Triglycerides 83 mg/dL (48-352) 06/10/23 23:34 Cholesterol 144 mg/dL (-200) 06/10/23 23:34 LDL Cholesterol, Calc 88 mg/dL (-129) 06/10/23 23:34 VLDL Cholesterol 17 mg/dL 06/10/23 23:34 HDL Cholesterol 39 mg/dL (60-) L 06/10/23 23:34 LDL/HDL Ratio 2.3 (<3.6) 06/10/23 23:34 Cholesterol/HDL Ratio 3.7 (<5.0) 06/10/23 23:34 Lipase 11 U/L (11-82) 06/10/23 16:00 TSH 1.35 uIU/mL (0.34-5.60) 06/10/23 23:34 Urine Color YELLOW 06/11/23 13:40 Urine Clarity CLEAR (CLEAR) 06/11/23 13:40 Urine pH 5.5 PH (5.0-7.5) 06/11/23 13:40 Ur Specific [place] 1.020 (1.002-1.030) 06/11/23 13:40 Urine Protein TRACE mg/dL (NEGATIVE) 06/11/23 13:40 Urine Glucose (UA) 500 mg/dL (NEGATIVE) H 06/11/23 13:40 Urine Ketones TRACE mg/dL (NEGATIVE) 06/11/23 13:40 Urine Occult Blood TRACE-INTA (NEGATIVE) 06/11/23 13:40 Urine Nitrite NEGATIVE (NEGATIVE) 06/11/23 13:40 Urine Bilirubin NEGATIVE (NEGATIVE) 06/11/23 13:40 Urine Urobilinogen 0.2 (NORMAL) E.U./dL (NORMAL) 06/11/23 13:40 Ur Leukocyte Esterase NEGATIVE (NEGATIVE) 06/11/23 13:40 Urine RBC 0-5 /HPF (0-5) 06/11/23 13:40 Urine WBC 0-3 /HPF (0-3) 06/11/23 13:40 Ur Squamous Epith Cells RARE Squamous (<= Few) 06/11/23 13:40 Urine Bacteria Rare /HPF (None Seen) 06/11/23 13:40 Urine Culture Comments NOT INDICATED 06/11/23 13:40 Nasal Influenza B PCR NOT DETECTED 06/11/23 03:10 Nasal Influenza A PCR NOT DETECTED 06/11/23 03:10 Nasal RSV (PCR) NOT DETECTED 06/11/23 03:10 Nasal SARS-CoV-2 (PCR) NOT DETECTED 06/11/23 03:10 - Procedures Procedures: Procedures ENDOSC POLYPECTOMY OF LG INTEST (11/08/12) INJECT/INFUSE NEC (11/08/12) INSPECTION OF LOWER INTESTINAL TRACT, ENDO (12/28/16) REPLACEMENT OF LEFT LENS WITH SYNTH SUB, PERC APPROACH (01/28/16) REPLACEMENT OF RIGHT LENS WITH SYNTH SUB, PERC APPROACH (01/07/16)
[2023-06-14] MEDS: METOCLOPRAMIDE 10 MG/2 ML VIAL IVP STA (18:51)
[2023-06-14] MEDS: INSULIN LISPRO 300 UNIT/3 ML PEN SUBQ SCH (22:10)
[2023-06-15 05:51] LABS: BASOPHILS % (AUTO) 0.7 %; EOSINOPHILS % (AUTO) 0.1 %; HCT - HEMATOCRIT 30.3 % (42.0-52.0); HGB - HEMOGLOBIN 9.2 g/dL (14.0-18.0); LYMPHOCYTES % (AUTO) 2.1 %; MEAN CORPUSCULAR HEMOGLOBIN 29.8 pg (27.0-31.0); MEAN CORPUSCULAR HGB CONC 30.4 g/dL (32.0-36.0); MEAN CORPUSCULAR VOLUME 98.1 fL (80.0-94.0); MEAN PLATELET VOLUME 11.2 fL (7.4-11.4); MONOCYTES % (AUTO) 4.3 %; NEUTROPHILS % (AUTO) 90.6 %; PLT - PLATELET COUNT 139 10^3/uL (130-450); RED BLOOD COUNT 3.09 10^6/uL (4.70-6.10); RED CELL DISTRIBUTION WIDTH 17.8 % (12.0-15.0)
[2023-06-15 05:57] LABS: ABNORMAL LYMPHS % (MANUAL) 0 %
[2023-06-15 06:09] LABS: CALCIUM 8.6 mg/dL (8.5-10.3); CREATININE 1.1 mg/dL (0.6-1.3); POTASSIUM 3.1 mmol/L (3.5-4.5)
[2023-06-15 06:25] LABS: BAND NEUTROPHILS % (MANUAL) 17 %; DIFFERENTIAL COMMENT MANUAL DIFFERENTIAL; LYMPHOCYTES # (MANUAL) 0.6 10^3/uL (1.5-3.5); LYMPHOCYTES % (MANUAL) 7 %; NEUTROPHILS # (MANUAL) 8.4 10^3/uL (1.5-6.6); PLATELET ESTIMATE, MANUAL NORMAL (130-450,000) (NORMAL); RBC MORPHOLOGY (MULTIPLE) NORMAL APPEARANCE (NORMAL)
[2023-06-15] MEDS: POTASSIUM CHLORIDE 20 MEQ TABLET PO SCH (08:42)
[2023-06-15] MEDS: MAGNESIUM SULFATE 2 GRAM 2 GM/50 ML BAG IV ONE (08:42)
--- NOTE | 2023-06-15 09:09 | PROVIDER PROGRESS NOTE ---
Subjective - General Admit Date: 06/10/23 - Review of Systems General: positive: Weakness HEENT: positive: No symptoms Pulmonary: positive: No symptoms Cardiovascular: positive: No symptoms Gastrointestinal: positive: No symptoms, Flatus. negative: Abdominal pain Genitourinary: positive: Retention (required straight cath overnight) Musculoskeletal: positive: No symptoms Skin: positive: No symptoms Psychiatric: positive: No symptoms - Other Other Information/Narrative: NGT removed yesterday. Tolerated 1340cc clears, + flatus but no BM yet. HD normal, afebrile, UOP 1250cc. Objective - Patient Data Reviewed Vital Signs: Yes Vital Signs: Vital Signs x48h Temp Pulse Resp BP Pulse Ox 06/15/23 07:25 36.7 C 97 18 138/62 H 93 Intake & Output: Intake and Output Totals x24h 06/13/23 06/14/23 06/15/23 23:59 23:59 23:59 Intake Total 3649.167 2706.667 1600 Output Total 1500 1225 725 Balance 2149.167 1481.667 875 - Lab Results Lab Results: 06/15/23 05:42 06/15/23 05:42 Other Lab Results: Lab Results x24hrs 06/15/23 06/15/23 06/15/23 Range/Units 07:26 05:42 05:42 WBC 9.0 (4.8-10.8) x10^3/uL RBC 3.09 L (4.70-6.10) 10^6/uL Hgb 9.2 L (14.0-18.0) g/dL Hct 30.3 L (42.0-52.0) % MCV 98.1 H (80.0-94.0) fL MCH 29.8 (27.0-31.0) pg MCHC 30.4 L (32.0-36.0) g/dL RDW 17.8 H (12.0-15.0) % Plt Count 139 (130-450) 10^3/uL MPV 11.2 (7.4-11.4) fL Neut # (Auto) Not Reportable Lymph # (Auto) Not Reportable [place] # (Auto) Not Reportable Eos # (Auto) Not Reportable Baso # (Auto) Not Reportable Absolute Nucleated RBC Not Reportable Total Counted 100 Band Neuts % (Manual) 17 H (0 - 10) % Abnorm Lymph % (Manual) 0 % Nucleated RBC % Not Reportable Neutrophils # (Manual) 8.4 H (1.5-6.6) 10^3/uL Lymphocytes # (Manual) 0.6 L (1.5-3.5) 10^3/uL Monocytes # (Manual) 0.0 (0.0-1.0) 10^3/uL Eosinophils # (Manual) 0.0 (0-0.7) 10^3/uL Basophils # (Manual) 0.0 (0-0.1) 10^3/uL Differential Comment MANUAL DIFFERENTIAL Platelet Estimate NORMAL (130-450,000) (NORMAL) RBC Morph Micro Appear NORMAL APPEARANCE (NORMAL) Sodium 141 (135-145) mmol/L Potassium 3.1 L (3.5-4.5) mmol/L Chloride 109 (101-111) mmol/L Carbon Dioxide 26 (21-32) mmol/L Anion Gap 6.0 (6-13) BUN 28 H (6-20) mg/dL Creatinine 1.1 (0.6-1.3) mg/dL Estimated GFR (MDRD) 64 L (>89) Glucose 154 H (74-104) mg/dL POC Whole Bld Glucose 141 H (70 - 100) mg/dL Calcium 8.6 (8.5-10.3) mg/dL 06/14/23 06/14/23 06/14/23 Range/Units 20:42 16:45 11:19 WBC (4.8-10.8) x10^3/uL RBC (4.70-6.10) 10^6/uL Hgb (14.0-18.0) g/dL Hct (42.0-52.0) % MCV (80.0-94.0) fL MCH (27.0-31.0) pg MCHC (32.0-36.0) g/dL RDW (12.0-15.0) % Plt Count (130-450) 10^3/uL MPV (7.4-11.4) fL Neut # (Auto) Lymph # (Auto) [place] # (Auto) Eos # (Auto) Baso # (Auto) Absolute Nucleated RBC Total Counted Band Neuts % (Manual) (0 - 10) % Abnorm Lymph % (Manual) % Nucleated RBC % Neutrophils # (Manual) (1.5-6.6) 10^3/uL Lymphocytes # (Manual) (1.5-3.5) 10^3/uL Monocytes # (Manual) (0.0-1.0) 10^3/uL Eosinophils # (Manual) (0-0.7) 10^3/uL Basophils # (Manual) (0-0.1) 10^3/uL Differential Comment Platelet Estimate (NORMAL) RBC Morph Micro Appear (NORMAL) Sodium (135-145) mmol/L Potassium (3.5-4.5) mmol/L Chloride (101-111) mmol/L Carbon Dioxide (21-32) mmol/L Anion Gap (6-13) BUN (6-20) mg/dL Creatinine (0.6-1.3) mg/dL Estimated GFR (MDRD) (>89) Glucose (74-104) mg/dL POC Whole Bld Glucose 133 H 145 H 115 H (70 - 100) mg/dL Calcium (8.5-10.3) mg/dL - Current Medications Current Medications: Current Medications Generic Name Dose Route Start Last Admin Trade Name Freq PRN Reason Stop Dose Admin Hydrocodone Bitart/Acetaminophen 1 tab 06/12/23 14:49 06/14/23 03:00 Hydrocod/Acetam 5/325 Mg Tablet PO 1 tab Q4HR PRN Administration Moderate Pain (Level 4-6) Amiodarone HCl 200 mg 06/11/23 09:00 06/15/23 07:56 Amiodarone 200 Mg Tablet PO 200 mg DAILY GILMAR Administration Atorvastatin Calcium 40 mg 06/11/23 09:00 06/15/23 07:56 Atorvastatin 40 Mg Tablet PO 40 mg DAILY GILMAR Administration Enoxaparin Sodium 40 mg 06/11/23 21:00 06/15/23 07:55 Enoxaparin 40 Mg/0.4 Ml Syringe SUBQ 40 mg DAILY GILMAR Administration Hydromorphone HCl 0.5 mg 06/11/23 20:22 06/15/23 05:20 Hydromorphone 0.5 Mg/0.5 Ml Syringe IVP 0.5 mg Q2H PRN Administration Severe Pain (Level 7-10) Dextrose/Lactated Ringer's 1,000 mls @ 100 mls/hr 04/01/24 21:00 06/15/23 05:24 D5lr IV 100 mls/hr .Q10H GILMAR Administration Insulin Human Lispro 1 - 5 unit 06/14/23 21:00 06/15/23 07:57 Insulin Lispro 300 Unit/3 Ml Pen SUBQ 1 unit 0800,1200,1700,2100 GILMAR Administration Protocol Metoprolol Succinate 25 mg 06/11/23 09:00 06/15/23 07:56 Metoprolol Succinate 25 Mg Tablet PO 25 mg DAILY GILMAR Administration Ondansetron HCl 4 mg 06/10/23 21:25 06/11/23 12:00 Ondansetron Odt 4 Mg Tablet TL 4 mg Q6H PRN Administration Nausea / Vomiting Pantoprazole Sodium 40 mg 06/11/23 09:00 06/15/23 07:56 Pantoprazole 40 Mg Tablet PO 40 mg DAILY GILMAR Administration Phenol/Menthol 2 sprays 06/12/23 00:13 06/14/23 01:27 Phenol Throat [place] 177 Ml MM 2 sprays Q2HR PRN Administration Throat Pain Potassium Chloride 40 meq 06/15/23 09:00 06/15/23 08:42 Potassium Chloride 20 Meq Tablet PO 06/16/23 09:01 40 meq BID GILMAR Administration Sodium Chloride 10 ml 06/10/23 21:27 06/14/23 18:52 Sodium Chloride Flush 0.9% 10 Ml Syringe IVP 10 ml PRN PRN Administration NEEDED PER PROVIDER ORDERS Sodium Chloride 10 ml 06/11/23 01:00 06/15/23 08:03 Sodium Chloride Flush 0.9% 10 Ml Syringe IVP 10 ml 0100,0900,1700 GILMAR Administration - Physical Exam General Appearance: positive: No acute distress Respiratory: positive: Chest non-tender, No respiratory distress, Breath sounds nml Cardiovascular: positive: Regular rate & rhythm Abdomen: positive: Non-tender, No distention Skin: positive: Color nml, No rash, Warm, Dry Neurologic/Psychiatric: positive: Oriented x3, Mood/affect nml ABX Reporting Has patient been on IV antibiotics over the past 48 hours?: No Impression/Plan - Problem List Problem List: SBO - resolved. Tolerating NGT removal. OK to advance diet as tolerated to regular. Spring Piper DO, FACS General Surgeon
--- NOTE | 2023-06-15 11:13 | XRAY Report ---
PROCEDURE: Chest 1V INDICATIONS: Choking sensation after removal of NGT.r/o aspirat TECHNIQUE: One view of the chest was acquired. COMPARISON: Chest radiograph 06/12/2023 FINDINGS: Surgical changes and devices: Left chest Port-A-Cath is seen with catheter tip projecting over the s uperior parietal junction. Sternotomy wires and mediastinal clips are present. Nasogastric tube has b een removed. Lungs and pleura: No pleural effusions or pneumothorax. Mildly low lung volumes bilaterally. Bibasil ar opacities may represent atelectasis versus aspiration or pneumonia. Mediastinum: Mediastinal contours appear normal. Heart size is normal. Bones and chest wall: No suspicious bony lesions. Overlying soft tissues appear unremarkable. IMPRESSION: Mildly low lung volumes bilaterally. Bibasilar opacities likely represent atelectasis, although pneum onia or aspiration are not excluded. Reviewed by: Jorge Randolph MD on 06/15/2023 11:11 AM PDT Approved by: Jorge Randolph MD on 06/15/2023 11:11 AM PDT Station ID: [id number]
--- NOTE | 2023-06-15 11:27 | PROVIDER PROGRESS NOTE ---
Assessment/Plan - Problem List (1) Small bowel obstruction Assessment/Plan: (1) Small bowel obstruction Assessment/Plan: --Case discussed with general surgery. Advance to regular diet today. --Ambulate TID, [place] removed. (2) CAD (coronary artery disease) Qualifiers: Coronary Disease-Associated Artery/Lesion type: [place] artery [place] vs. transplanted heart: [place] heart Associated angina: with stable angina Qualified Code(s): I25.118 - Atherosclerotic heart disease of [place] coronary artery with other forms of angina pectoris Assessment/Plan: --Continue metoprolol and atorvastatin. (3) DM type 2 (diabetes mellitus, type 2) Qualifiers: Diabetes mellitus halfway insulin use: unspecified [place] insulin use status Diabetes mellitus complication status: without complication Qualified Code(s): E11.9 - Type 2 diabetes mellitus without complications Assessment/Plan: --Continue sliding scale insulin. (4) GERD (gastroesophageal reflux disease) Assessment/Plan: --Continue protonix. (5) HTN (hypertension) Qualifiers: Hypertension type: primary hypertension Qualified Code(s): I10 - Essential (primary) hypertension Assessment/Plan: --Continue metoprolol. (6) Atrial fibrillation Assessment/Plan: --Continue amiodarone. No anticoagulation on his home medication list. Dispo: PT/OT. Discharge in next 24-28 hours. (2) CAD (coronary artery disease) Qualifiers: Coronary Disease-Associated Artery/Lesion type: [place] artery [place] vs. transplanted heart: [place] heart Associated angina: with stable angina Qualified Code(s): I25.118 - Atherosclerotic heart disease of [place] coronary artery with other forms of angina pectoris (3) DM type 2 (diabetes mellitus, type 2) Qualifiers: Diabetes mellitus halfway insulin use: unspecified halfway insulin use status Diabetes mellitus complication status: without complication Qualified Code(s): E11.9 - Type 2 diabetes mellitus without complications (5) HTN (hypertension) Qualifiers: Hypertension type: primary hypertension Qualified Code(s): I10 - Essential (primary) hypertension - Current Meds Current Meds: Current Medications Generic Name Dose Route Start Last Admin Trade Name Freq PRN Reason Stop Dose Admin Hydrocodone Bitart/Acetaminophen 1 tab 06/12/23 14:49 06/14/23 03:00 Hydrocod/Acetam 5/325 Mg Tablet PO 1 tab Q4HR PRN Administration Moderate Pain (Level 4-6) Amiodarone HCl 200 mg 06/11/23 09:00 06/15/23 07:56 Amiodarone 200 Mg Tablet PO 200 mg DAILY GILMAR Administration Atorvastatin Calcium 40 mg 06/11/23 09:00 06/15/23 07:56 Atorvastatin 40 Mg Tablet PO 40 mg DAILY GILMAR Administration Enoxaparin Sodium 40 mg 06/11/23 21:00 06/15/23 07:55 Enoxaparin 40 Mg/0.4 Ml Syringe SUBQ 40 mg DAILY GILMAR Administration Hydromorphone HCl 0.5 mg 06/11/23 20:22 06/15/23 05:20 Hydromorphone 0.5 Mg/0.5 Ml Syringe IVP 0.5 mg Q2H PRN Administration Severe Pain (Level 7-10) Insulin Human Lispro 1 - 5 unit 06/14/23 21:00 06/15/23 07:57 Insulin Lispro 300 Unit/3 Ml Pen SUBQ 1 unit 0800,1200,1700,2100 GILMAR Administration Protocol Metoprolol Succinate 25 mg 06/11/23 09:00 06/15/23 07:56 Metoprolol Succinate 25 Mg Tablet PO 25 mg DAILY GILMAR Administration Ondansetron HCl 4 mg 06/10/23 21:25 06/11/23 12:00 Ondansetron Odt 4 Mg Tablet TL 4 mg Q6H PRN Administration Nausea / Vomiting Pantoprazole Sodium 40 mg 06/11/23 09:00 06/15/23 07:56 Pantoprazole 40 Mg Tablet PO 40 mg DAILY GILMAR Administration Phenol/Menthol 2 sprays 06/12/23 00:13 06/14/23 01:27 Phenol Throat [place] 177 Ml MM 2 sprays Q2HR PRN Administration Throat Pain Potassium Chloride 40 meq 06/15/23 09:00 06/15/23 08:42 Potassium Chloride 20 Meq Tablet PO 06/16/23 09:01 40 meq BID GILMAR Administration Sodium Chloride 10 ml 06/10/23 21:27 06/14/23 18:52 Sodium Chloride Flush 0.9% 10 Ml Syringe IVP 10 ml PRN PRN Administration NEEDED PER PROVIDER ORDERS Sodium Chloride 10 ml 06/11/23 01:00 06/15/23 08:03 Sodium Chloride Flush 0.9% 10 Ml Syringe IVP 10 ml 0100,0900,1700 GILMAR Administration - Lab Result Fish Bone Diagrams: 06/15/23 05:42 06/15/23 05:42 - Additional Planning My Orders: My Active Orders 06/14/23 17:16 Blood Glucose Checks - Eating [RC] 0800,1200,1700,2100 06/14/23 17:17 Initiate Hypoglycemia Protocol [RC] .protocol 06/14/23 21:00 Insulin Lispro [Humalog Kwikpen U-100] 1 - 5 unit SUBQ 0800,1200,1700,2100 06/15/23 Evaluate and Treat OT [OT] Routine Evaluate and Treat PT [PT] Routine 06/15/23 09:00 Potassium Chloride [K-Dur] 40 meq PO BID 06/15/23 Lunch Regular Diet [DIET] 06/16/23 05:00 BMP - BASIC METABOLIC PANEL [CHEM] DAILYLAB CBC [CBC - COMP BLD CT W/AUTO DIFF] [HEME] DAILYLAB 06/17/23 05:00 BMP - BASIC METABOLIC PANEL [CHEM] DAILYLAB CBC [CBC - COMP BLD CT W/AUTO DIFF] [HEME] DAILYLAB 06/18/23 05:00 BMP - BASIC METABOLIC PANEL [CHEM] DAILYLAB CBC [CBC - COMP BLD CT W/AUTO DIFF] [HEME] DAILYLAB Subjective - Subjective Patient Reports: Feeling Better, Resting Comfortably, No Complaints Objective Vital Signs: Vital Signs - 24 hr 06/14/23 06/14/23 06/15/23 16:00 23:26 07:25 Temperature 36.8 C 36.7 C 36.7 C Heart Rate [ 89 90 97 Brachial] Respiratory 16 18 18 Rate Blood Pressure 118/51 L 133/63 H 138/62 H [Right Brachial artery] O2 Saturation 97 95 93 Oxygen O2 Source Room air I&O (Last 24 Hrs): Intake and Output Totals x24h 06/13/23 06/14/23 06/15/23 23:59 23:59 23:59 Intake Total 3649.167 2706.667 2408.333 Output Total 1500 1225 925 Balance 2149.167 2317.971 3541.333 General: Alert, Oriented x3, Cooperative, No acute distress Cardiovascular: Regular rate, Normal S1, Normal S2, No murmurs Respiratory: Chest non-tender, No respiratory distress, Breath sounds nml Abdomen: Normal bowel sounds, Soft, No tenderness, No hepatospenomegaly, No masses - Results Results: Laboratory Results WBC 9.0 x10^3/uL (4.8-10.8) 06/15/23 05:42 RBC 3.09 10^6/uL (4.70-6.10) L 06/15/23 05:42 Hgb 9.2 g/dL (14.0-18.0) L 06/15/23 05:42 Hct 30.3 % (42.0-52.0) L 06/15/23 05:42 MCV 98.1 fL (80.0-94.0) H 06/15/23 05:42 MCH 29.8 pg (27.0-31.0) 06/15/23 05:42 MCHC 30.4 g/dL (32.0-36.0) L 06/15/23 05:42 RDW 17.8 % (12.0-15.0) H 06/15/23 05:42 Plt Count 139 10^3/uL (130-450) 06/15/23 05:42 MPV 11.2 fL (7.4-11.4) 06/15/23 05:42 Neut # (Auto) Not Reportable 06/15/23 05:42 Lymph # (Auto) Not Reportable 06/15/23 05:42 [place] # (Auto) Not Reportable 06/15/23 05:42 Eos # (Auto) Not Reportable 06/15/23 05:42 Baso # (Auto) Not Reportable 06/15/23 05:42 Absolute Nucleated RBC Not Reportable 06/15/23 05:42 Total Counted 100 06/15/23 05:42 Band Neuts % (Manual) 17 % (0-10) H 06/15/23 05:42 Abnorm Lymph % (Manual) 0 % 06/15/23 05:42 Nucleated RBC % Not Reportable 06/15/23 05:42 Neutrophils # (Manual) 8.4 10^3/uL (1.5-6.6) H 06/15/23 05:42 Lymphocytes # (Manual) 0.6 10^3/uL (1.5-3.5) L 06/15/23 05:42 Monocytes # (Manual) 0.0 10^3/uL (0.0-1.0) 06/15/23 05:42 Eosinophils # (Manual) 0.0 10^3/uL (0-0.7) 06/15/23 05:42 Basophils # (Manual) 0.0 10^3/uL (0-0.1) 06/15/23 05:42 Differential Comment MANUAL DIFFERENTIAL 06/15/23 05:42 Platelet Estimate NORMAL (130-450,000) (NORMAL) 06/15/23 05:42 Platelet Morphology NORMAL APPEARANCE (NORMAL) 06/12/23 05:44 RBC Morph Micro Appear NORMAL APPEARANCE (NORMAL) 06/15/23 05:42 PT 12.1 secs (9.9-12.6) 06/10/23 15:45 INR 1.1 (0.8-1.2) 06/10/23 15:45 Sodium 141 mmol/L (135-145) 06/15/23 05:42 Potassium 3.1 mmol/L (3.5-4.5) L 06/15/23 05:42 Chloride 109 mmol/L (101-111) 06/15/23 05:42 Carbon Dioxide 26 mmol/L (21-32) 06/15/23 05:42 Anion Gap 6.0 (6-13) 06/15/23 05:42 BUN 28 mg/dL (6-20) H 06/15/23 05:42 Creatinine 1.1 mg/dL (0.6-1.3) 06/15/23 05:42 Estimated GFR (MDRD) 64 (>89) L 06/15/23 05:42 Glucose 154 mg/dL (74-104) H 06/15/23 05:42 POC Whole Bld Glucose 113 mg/dL (70 - 100) H 06/15/23 11:14 Estimat Average Glucose 108 mg/dL (70-100) H 06/10/23 23:34 Hemoglobin A1c % 5.4 % (4.27-6.07) 06/10/23 23:34 Lactic Acid 2.6 mmol/L (0.5-2.2) H 06/12/23 05:44 Calcium 8.6 mg/dL (8.5-10.3) 06/15/23 05:42 Phosphorus 5.0 mg/dL (2.5-5.0) 06/13/23 05:02 Magnesium 1.9 mg/dL (1.7-2.3) 06/13/23 05:02 Total Bilirubin 0.6 mg/dL (0.2-1.0) 06/11/23 05:10 AST 10 IU/L (10-42) 06/11/23 05:10 ALT 11 IU/L (10-60) 06/11/23 05:10 Alkaline Phosphatase 66 IU/L (42-121) 06/11/23 05:10 Total Protein 6.2 g/dL (6.4-8.9) L 06/11/23 05:10 Albumin 4.0 g/dL (3.2-5.5) 06/11/23 05:10 Globulin 2.2 g/dL (2.1-4.2) 06/11/23 05:10 Albumin/Globulin Ratio 1.8 (1.0-2.2) 06/11/23 05:10 Triglycerides 83 mg/dL (48-352) 06/10/23 23:34 Cholesterol 144 mg/dL (-200) 06/10/23 23:34 LDL Cholesterol, Calc 88 mg/dL (-129) 06/10/23 23:34 VLDL Cholesterol 17 mg/dL 06/10/23 23:34 HDL Cholesterol 39 mg/dL (60-) L 06/10/23 23:34 LDL/HDL Ratio 2.3 (<3.6) 06/10/23 23:34 Cholesterol/HDL Ratio 3.7 (<5.0) 06/10/23 23:34 Lipase 11 U/L (11-82) 06/10/23 16:00 TSH 1.35 uIU/mL (0.34-5.60) 06/10/23 23:34 Urine Color YELLOW 06/11/23 13:40 Urine Clarity CLEAR (CLEAR) 06/11/23 13:40 Urine pH 5.5 PH (5.0-7.5) 06/11/23 13:40 Ur Specific [place] 1.020 (1.002-1.030) 06/11/23 13:40 Urine Protein TRACE mg/dL (NEGATIVE) 06/11/23 13:40 Urine Glucose (UA) 500 mg/dL (NEGATIVE) H 06/11/23 13:40 Urine Ketones TRACE mg/dL (NEGATIVE) 06/11/23 13:40 Urine Occult Blood TRACE-INTA (NEGATIVE) 06/11/23 13:40 Urine Nitrite NEGATIVE (NEGATIVE) 06/11/23 13:40 Urine Bilirubin NEGATIVE (NEGATIVE) 06/11/23 13:40 Urine Urobilinogen 0.2 (NORMAL) E.U./dL (NORMAL) 06/11/23 13:40 Ur Leukocyte Esterase NEGATIVE (NEGATIVE) 06/11/23 13:40 Urine RBC 0-5 /HPF (0-5) 06/11/23 13:40 Urine WBC 0-3 /HPF (0-3) 06/11/23 13:40 Ur Squamous Epith Cells RARE Squamous (<= Few) 06/11/23 13:40 Urine Bacteria Rare /HPF (None Seen) 06/11/23 13:40 Urine Culture Comments NOT INDICATED 06/11/23 13:40 Nasal Influenza B PCR NOT DETECTED 06/11/23 03:10 Nasal Influenza A PCR NOT DETECTED 06/11/23 03:10 Nasal RSV (PCR) NOT DETECTED 06/11/23 03:10 Nasal SARS-CoV-2 (PCR) NOT DETECTED 06/11/23 03:10 - Procedures Procedures: Procedures ENDOSC POLYPECTOMY OF LG INTEST (11/08/12) INJECT/INFUSE NEC (11/08/12) INSPECTION OF LOWER INTESTINAL TRACT, ENDO (12/28/16) REPLACEMENT OF LEFT LENS WITH SYNTH SUB, PERC APPROACH (01/28/16) REPLACEMENT OF RIGHT LENS WITH SYNTH SUB, PERC APPROACH (01/07/16)
[2023-06-15] MEDS: IPRATROPIUM BROMIDE NAS SCH (16:26)
[2023-06-15] MEDS: CHOLECALCIFEROL 25 MCG TABLET PO SCH (17:18)
[2023-06-16 00:01] VITALS: O2SAT 96
[2023-06-16 06:05] LABS: BASOPHILS # (AUTO) 0.1 10^3/uL (0.0-0.1); BASOPHILS % (AUTO) 0.7 %; EOSINOPHILS % (AUTO) 0.3 %; HCT - HEMATOCRIT 31.8 % (42.0-52.0); HGB - HEMOGLOBIN 9.7 g/dL (14.0-18.0); LYMPHOCYTES # (AUTO) 0.3 10^3/uL (1.5-3.5); LYMPHOCYTES % (AUTO) 2.8 %; MEAN CORPUSCULAR HEMOGLOBIN 29.7 pg (27.0-31.0); MEAN CORPUSCULAR HGB CONC 30.5 g/dL (32.0-36.0); MEAN CORPUSCULAR VOLUME 97.2 fL (80.0-94.0); MEAN PLATELET VOLUME 11.6 fL (7.4-11.4); MONOCYTES # (AUTO) 0.5 10^3/uL (0.0-1.0); MONOCYTES % (AUTO) 4.7 %; NEUTROPHILS % (AUTO) 90.5 %; PLT - PLATELET COUNT 158 10^3/uL (130-450); RED BLOOD COUNT 3.27 10^6/uL (4.70-6.10)
[2023-06-16 06:23] LABS: CALCIUM 8.5 mg/dL (8.5-10.3); CREATININE 0.9 mg/dL (0.6-1.3); POTASSIUM 3.6 mmol/L (3.5-4.5)
[2023-06-16 07:33] VITALS: BP 122/60
--- NOTE | 2023-06-16 08:44 | PROVIDER PROGRESS NOTE ---
Subjective - General Admit Date: 06/10/23 - Review of Systems General: positive: No symptoms HEENT: positive: No symptoms Pulmonary: positive: No symptoms Cardiovascular: positive: No symptoms Gastrointestinal: positive: No symptoms, Flatus. negative: Abdominal pain Genitourinary: positive: Retention (required straight cath overnight) Musculoskeletal: positive: No symptoms Skin: positive: No symptoms Psychiatric: positive: No symptoms - Other Other Information/Narrative: 24hr events:HD normal, tolerated 1800cc of regular diet with + flatus and large BM. Objective - Patient Data Reviewed Vital Signs: Yes Vital Signs: Vital Signs x48h Temp Pulse Resp BP Pulse Ox 06/16/23 07:15 36.6 C 86 18 122/60 96 Intake & Output: Intake and Output Totals x24h 06/14/23 06/15/23 06/16/23 23:59 23:59 23:59 Intake Total 2706.667 3148.333 730 Output Total 1225 1025 300 Balance 1921.341 4131.333 430 - Lab Results Lab Results: 06/16/23 05:43 06/16/23 05:43 Other Lab Results: Lab Results x24hrs 06/16/23 06/16/23 06/16/23 Range/Units 07:15 05:43 05:43 WBC 10.0 (4.8-10.8) x10^3/uL RBC 3.27 L (4.70-6.10) 10^6/uL Hgb 9.7 L (14.0-18.0) g/dL Hct 31.8 L (42.0-52.0) % MCV 97.2 H (80.0-94.0) fL MCH 29.7 (27.0-31.0) pg MCHC 30.5 L (32.0-36.0) g/dL RDW 18.0 H (12.0-15.0) % Plt Count 158 (130-450) 10^3/uL MPV 11.6 H (7.4-11.4) fL Neut # (Auto) 9.0 H (1.5-6.6) 10^3/uL Lymph # (Auto) 0.3 L (1.5-3.5) 10^3/uL [place] # (Auto) 0.5 (0.0-1.0) 10^3/uL Eos # (Auto) 0.0 (0.0-0.7) 10^3/uL Baso # (Auto) 0.1 (0.0-0.1) 10^3/uL Absolute Nucleated RBC 0.00 x10^3/uL Nucleated RBC % 0.0 /100WBC Sodium 140 (135-145) mmol/L Potassium 3.6 (3.5-4.5) mmol/L Chloride 107 (101-111) mmol/L Carbon Dioxide 25 (21-32) mmol/L Anion Gap 8.0 (6-13) BUN 21 H (6-20) mg/dL Creatinine 0.9 (0.6-1.3) mg/dL Estimated GFR (MDRD) 80 L (>89) Glucose 109 H (74-104) mg/dL POC Whole Bld Glucose 106 H (70 - 100) mg/dL Calcium 8.5 (8.5-10.3) mg/dL 06/15/23 06/15/23 06/15/23 Range/Units 20:47 16:43 11:14 WBC (4.8-10.8) x10^3/uL RBC (4.70-6.10) 10^6/uL Hgb (14.0-18.0) g/dL Hct (42.0-52.0) % MCV (80.0-94.0) fL MCH (27.0-31.0) pg MCHC (32.0-36.0) g/dL RDW (12.0-15.0) % Plt Count (130-450) 10^3/uL MPV (7.4-11.4) fL Neut # (Auto) (1.5-6.6) 10^3/uL Lymph # (Auto) (1.5-3.5) 10^3/uL [place] # (Auto) (0.0-1.0) 10^3/uL Eos # (Auto) (0.0-0.7) 10^3/uL Baso # (Auto) (0.0-0.1) 10^3/uL Absolute Nucleated RBC x10^3/uL Nucleated RBC % /100WBC Sodium (135-145) mmol/L Potassium (3.5-4.5) mmol/L Chloride (101-111) mmol/L Carbon Dioxide (21-32) mmol/L Anion Gap (6-13) BUN (6-20) mg/dL Creatinine (0.6-1.3) mg/dL Estimated GFR (MDRD) (>89) Glucose (74-104) mg/dL POC Whole Bld Glucose 123 H 117 H 113 H (70 - 100) mg/dL Calcium (8.5-10.3) mg/dL - Current Medications Current Medications: Current Medications Generic Name Dose Route Start Last Admin Trade Name Freq PRN Reason Stop Dose Admin Hydrocodone Bitart/Acetaminophen 1 tab 06/12/23 14:49 06/16/23 06:21 Hydrocod/Acetam 5/325 Mg Tablet PO 1 tab Q4HR PRN Administration Moderate Pain (Level 4-6) Amiodarone HCl 200 mg 06/11/23 09:00 06/15/23 07:56 Amiodarone 200 Mg Tablet PO 200 mg DAILY GILMAR Administration Atorvastatin Calcium 40 mg 06/11/23 09:00 06/15/23 07:56 Atorvastatin 40 Mg Tablet PO 40 mg DAILY GILMAR Administration Cholecalciferol 50 mcg 06/15/23 17:00 06/15/23 17:18 Cholecalciferol 25 Mcg Tablet PO 50 mcg DAILY GILMAR Administration Enoxaparin Sodium 40 mg 06/11/23 21:00 06/15/23 07:55 Enoxaparin 40 Mg/0.4 Ml Syringe SUBQ 40 mg DAILY GILMAR Administration Hydromorphone HCl 0.5 mg 06/11/23 20:22 06/15/23 18:34 Hydromorphone 0.5 Mg/0.5 Ml Syringe IVP 0.5 mg Q2H PRN Administration Severe Pain (Level 7-10) Insulin Human Lispro 1 - 5 unit 06/14/23 21:00 06/16/23 07:33 Insulin Lispro 300 Unit/3 Ml Pen SUBQ Not Given 0800,1200,1700,2100 [facility] Protocol Metoprolol Succinate 25 mg 06/11/23 09:00 06/15/23 07:56 Metoprolol Succinate 25 Mg Tablet PO 25 mg DAILY GILMAR Administration Ondansetron HCl 4 mg 06/10/23 21:25 06/11/23 12:00 Ondansetron Odt 4 Mg Tablet TL 4 mg Q6H PRN Administration Nausea / Vomiting Pantoprazole Sodium 40 mg 06/11/23 09:00 06/15/23 07:56 Pantoprazole 40 Mg Tablet PO 40 mg DAILY GILMAR Administration Patient Own Med ( 2 each 06/15/23 17:00 06/15/23 18:37 Ipratropium [place] 2 each Nasal 30 Ml [place]) QID GILMAR Administration Phenol/Menthol 2 sprays 06/12/23 00:13 06/14/23 01:27 Phenol Throat [place] 177 Ml MM 2 sprays Q2HR PRN Administration Throat Pain Potassium Chloride 40 meq 06/15/23 09:00 06/15/23 21:34 Potassium Chloride 20 Meq Tablet PO 06/16/23 09:01 40 meq BID GILMAR Administration Sodium Chloride 10 ml 06/10/23 21:27 06/15/23 18:34 Sodium Chloride Flush 0.9% 10 Ml Syringe IVP 10 ml PRN PRN Administration NEEDED PER PROVIDER ORDERS Sodium Chloride 10 ml 06/11/23 01:00 06/16/23 00:34 Sodium Chloride Flush 0.9% 10 Ml Syringe IVP 10 ml 0100,0900,1700 GILMAR Administration - Physical Exam General Appearance: positive: No acute distress, Alert Respiratory: positive: Chest non-tender, No respiratory distress, Breath sounds nml Cardiovascular: positive: Regular rate & rhythm Abdomen: positive: Non-tender, No distention Neurologic/Psychiatric: positive: Oriented x3, Mood/affect nml Impression/Plan - Problem List Problem List: SBO - resolved, tolerating regular diet. OK for discharge from surgical standpoint. Will sign off. Spring Piper DO, FACS General Surgeon
[2023-06-16] MEDS ORDERED: SIMETHICONE *(INFANT SUSP)* 40 MG/0.6 ML BOTTLE PO PRN (10:34)
--- NOTE | 2023-06-16 11:20 | Discharge Plan ---
Discharge Plan Problem Reviewed?: Yes Disposition: Home, Self Care Condition: Stable Prescriptions: *Simethicone Oral Susp [*Simethicone] 80 mg PO Q6HR PRN #30 each PRN Reason: Gas Diet: Cardiac Activity Restrictions: Activity as Tolerated No Smoking: If you smoke, Please STOP! Call for help.
--- NOTE | 2023-06-16 11:26 | DISCHARGE SUMMARY ---
"Discharge Summary Admit Date: 07/11/23 Discharge Date: 06/16/23 Discharging Provider: Edel Perez Condition at Discharge: Stable Discharge Disposition: 01 Home, Self Care - DIAGNOSES Discharge Diagnoses with Status of Each Condition: SBO - resolved. 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 pt states he had some ice cream and soda and symptoms started. has some chills. no chest pain or sob. denies abd trauma. h/o appendectomy and prostatectomy. states bm is normal. no dysuria or hematuria. - CONSULTS | PROCEDURES Consultations: General Surgery Procedures: None - HOSPITAL COURSE Hospital Course: Patient is an 83-year-old male who presented to the ED due to complaints of abdominal pain with nausea and vomiting. A CT his abdomen was performed which showed evidence of a small bowel obstruction. An NG tube was inserted for bowel decompression and he was admitted. General surgery was consulted and recommended continued medical management. During his hospital course, his SBO resolved and his NG tube was removed. He was able to tolerate a regular diet and subsequently [facility]. - ALLERGIES Allergies/Adverse Reactions: Allergies Allergy/AdvReac Type Severity Reaction Status Date / Time milk AdvReac gas Verified 06/10/23 15:55 - MEDICATIONS Home Medications: Ambulatory Orders Medication Instructions Recorded Confirmed Atorvastatin Calcium 40 mg PO DAILY 12/15/22 06/11/23 Ondansetron Odt [Zofran Odt] 4 mg TL Q6H PRN #90 tablet 12/22/22 06/11/23 Prochlorperazine Maleate 5 mg PO Q6H PRN #90 tablet 12/22/22 06/11/23 [Compazine] Amiodarone [Pacerone] 200 mg PO DAILY 02/05/23 06/11/23 Buspirone HCl 10 mg PO BID 02/05/23 06/11/23 Metoprolol Succinate [Toprol Xl] 25 mg PO DAILY 02/05/23 06/11/23 Omeprazole Magnesium 20 mg PO DAILY 02/05/23 06/11/23 lisinopriL [Zestril] 5 mg PO DAILY 02/05/23 06/11/23 Lidocaine/Prilocain 2.5% Cream See Rx Instructions .ROUTE .COMPLEX 05/26/23 06/11/23 [Emla 2.5% Cream] Ipratropium [place] 2 spray NS QID 06/11/23 06/11/23 Nitroglycerin [Nitrostat] 1 tab SL PRN 06/11/23 *Simethicone Oral Susp 80 mg PO Q6HR PRN #30 each 06/16/23 [*Simethicone] - PHYSICAL EXAM AT DISCHARGE General Appearance: positive: No acute distress, Alert Respiratory: positive: Chest non-tender, No respiratory distress, Breath sounds nml Cardiovascular: positive: Regular rate & rhythm, No murmur, No gallop Abdomen: positive: Non-tender, Nml bowel sounds Neurologic/Psychiatric: positive: Oriented x3, CN's nml (2-12) - LABS Result Diagrams: 06/16/23 05:43 06/16/23 05:43 - FOLLOW UP Follow Up: Follow up with PCP. - TIME SPENT Time Spent in Discharge (Minutes): 35"
--- NOTE | 2023-06-16 11:56 | PROVIDER PROGRESS NOTE ---
Assessment/Plan - Problem List (1) Small bowel obstruction Assessment/Plan: (1) Small bowel obstruction Assessment/Plan: --Resolved. --Ambulate TID, [place] removed. (2) CAD (coronary artery disease) Qualifiers: Coronary Disease-Associated Artery/Lesion type: [place] artery [place] vs. transplanted heart: [place] heart Associated angina: with stable angina Qualified Code(s): I25.118 - Atherosclerotic heart disease of [place] coronary artery with other forms of angina pectoris Assessment/Plan: --Continue metoprolol and atorvastatin. (3) DM type 2 (diabetes mellitus, type 2) Qualifiers: Diabetes mellitus group home insulin use: unspecified roasterman insulin use status Diabetes mellitus complication status: without complication Qualified Code(s): E11.9 - Type 2 diabetes mellitus without complications Assessment/Plan: --Continue sliding scale insulin. (4) GERD (gastroesophageal reflux disease) Assessment/Plan: --Continue protonix. (5) HTN (hypertension) Qualifiers: Hypertension type: primary hypertension Qualified Code(s): I10 - Essential (primary) hypertension Assessment/Plan: --Continue metoprolol. (6) Atrial fibrillation Assessment/Plan: --Continue amiodarone. No anticoagulation on his home medication list. Dispo: Stable. Pending SNF placement. (2) CAD (coronary artery disease) Qualifiers: Coronary Disease-Associated Artery/Lesion type: [place] artery [place] vs. transplanted heart: [place] heart Associated angina: with stable angina Qualified Code(s): I25.118 - Atherosclerotic heart disease of [place] coronary artery with other forms of angina pectoris (3) DM type 2 (diabetes mellitus, type 2) Qualifiers: Diabetes mellitus group home insulin use: unspecified [place]aster[place] insulin use status Diabetes mellitus complication status: without complication Qualified Code(s): E11.9 - Type 2 diabetes mellitus without complications (5) HTN (hypertension) Qualifiers: Hypertension type: primary hypertension Qualified Code(s): I10 - Essential (primary) hypertension - Current Meds Current Meds: Current Medications Generic Name Dose Route Start Last Admin Trade Name Freq PRN Reason Stop Dose Admin Hydrocodone Bitart/Acetaminophen 1 tab 06/12/23 14:49 06/16/23 06:21 Hydrocod/Acetam 5/325 Mg Tablet PO 1 tab Q4HR PRN Administration Moderate Pain (Level 4-6) Amiodarone HCl 200 mg 06/11/23 09:00 06/16/23 08:55 Amiodarone 200 Mg Tablet PO 200 mg DAILY GILMAR Administration Atorvastatin Calcium 40 mg 06/11/23 09:00 06/16/23 08:56 Atorvastatin 40 Mg Tablet PO 40 mg DAILY GILMAR Administration Cholecalciferol 50 mcg 06/15/23 17:00 06/16/23 08:55 Cholecalciferol 25 Mcg Tablet PO 50 mcg DAILY GILMAR Administration Enoxaparin Sodium 40 mg 06/11/23 21:00 06/16/23 08:56 Enoxaparin 40 Mg/0.4 Ml Syringe SUBQ 40 mg DAILY [facility] Administration Hydromorphone HCl 0.5 mg 06/11/23 20:22 06/15/23 18:34 Hydromorphone 0.5 Mg/0.5 Ml Syringe IVP 0.5 mg Q2H PRN Administration Severe Pain (Level 7-10) Insulin Human Lispro 1 - 5 unit 06/14/23 21:00 06/16/23 07:33 Insulin Lispro 300 Unit/3 Ml Pen SUBQ Not Given 0800,1200,1700,2100 [facility] Protocol Metoprolol Succinate 25 mg 06/11/23 09:00 06/16/23 08:55 Metoprolol Succinate 25 Mg Tablet PO 25 mg DAILY [facility] Administration Ondansetron HCl 4 mg 06/10/23 21:25 06/11/23 12:00 Ondansetron Odt 4 Mg Tablet TL 4 mg Q6H PRN Administration Nausea / Vomiting Pantoprazole Sodium 40 mg 06/11/23 09:00 06/16/23 08:55 Pantoprazole 40 Mg Tablet PO 40 mg DAILY [facility] Administration Patient Own Med ( 2 each 06/15/23 17:00 06/16/23 08:56 Ipratropium [place] MICKIE 2 each Nasal 30 Ml [place]) QID [facility] Administration Phenol/Menthol 2 sprays 06/12/23 00:13 06/14/23 01:27 Phenol Throat [place] 177 Ml MM 2 sprays Q2HR PRN Administration Throat Pain Sodium Chloride 10 ml 06/10/23 21:27 06/15/23 18:34 Sodium Chloride Flush 0.9% 10 Ml Syringe IVP 10 ml PRN PRN Administration NEEDED PER PROVIDER ORDERS Sodium Chloride 10 ml 06/11/23 01:00 06/16/23 08:56 Sodium Chloride Flush 0.9% 10 Ml Syringe IVP 10 ml 0100,0900,1700 [facility] Administration - Lab Result Fish Bone Diagrams: 06/16/23 05:43 06/16/23 05:43 - Additional Planning My Orders: My Active Orders 06/15/23 11:33 Incentive Spirometry - RT [RC] TID 06/15/23 Dinner Regular Diet [DIET] 06/15/23 17:00 Cholecalciferol [Vitamin D3] 50 mcg PO DAILY Patient Own Med 2 each [place] QID 06/16/23 Home Health Referral [CONS] Routine 06/16/23 10:34 *Simethicone Oral Susp [*Simethicone] 80 mg PO Q6HR PRN 06/16/23 13:00 Simethicone [Mylicon] 80 mg PO 0900,1300,1800,2100 Simethicone [Mylicon] 80 mg PO 0900,1300,1800,2100 06/17/23 05:00 BMP - BASIC METABOLIC PANEL [CHEM] DAILYLAB CBC [CBC - COMP BLD CT W/AUTO DIFF] [HEME] DAILYLAB 06/18/23 05:00 BMP - BASIC METABOLIC PANEL [CHEM] DAILYLAB CBC [CBC - COMP BLD CT W/AUTO DIFF] [HEME] DAILYLAB Subjective - Subjective Patient Reports: Feeling Better, Resting Comfortably Objective Vital Signs: Vital Signs - 24 hr 06/15/23 06/15/23 06/15/23 14:40 14:47 16:00 Temperature 36.7 C Heart Rate [ 68 Brachial] Heart Rate [ 90 90 Sitting] Heart Rate [ 93 93 Standing] Heart Rate [ 87 87 Supine] Respiratory 16 Rate Blood Pressure 116/59 L [Right Brachial artery] Blood Pressure 111/73 111/73 [Sitting] Blood Pressure 143/53 H 143/53 H [Standing] Blood Pressure 141/70 H 141/70 H [Supine] O2 Saturation 95 06/15/23 06/16/23 23:54 07:15 Temperature 36.5 C 36.6 C Heart Rate [ 79 86 Brachial] Heart Rate [ Sitting] Heart Rate [ Standing] Heart Rate [ Supine] Respiratory 16 18 Rate Blood Pressure 127/57 L 122/60 [Right Brachial artery] Blood Pressure [Sitting] Blood Pressure [Standing] Blood Pressure [Supine] O2 Saturation 96 96 Oxygen O2 Source Room air I&O (Last 24 Hrs): Intake and Output Totals x24h 06/14/23 06/15/23 06/16/23 23:59 23:59 23:59 Intake Total 2706.667 3148.333 730 Output Total 1225 1025 300 Balance 0577.620 3681.333 430 General: Alert, Oriented x3, Cooperative, No acute distress Cardiovascular: Regular rate, Normal S1, Normal S2, No murmurs Respiratory: Chest non-tender, No respiratory distress, Breath sounds nml Abdomen: Normal bowel sounds, Soft, No tenderness, No hepatospenomegaly, No masses - Results Results: Laboratory Results WBC 10.0 x10^3/uL (4.8-10.8) 06/16/23 05:43 RBC 3.27 10^6/uL (4.70-6.10) L 06/16/23 05:43 Hgb 9.7 g/dL (14.0-18.0) L 06/16/23 05:43 Hct 31.8 % (42.0-52.0) L 06/16/23 05:43 MCV 97.2 fL (80.0-94.0) H 06/16/23 05:43 MCH 29.7 pg (27.0-31.0) 06/16/23 05:43 MCHC 30.5 g/dL (32.0-36.0) L 06/16/23 05:43 RDW 18.0 % (12.0-15.0) H 06/16/23 05:43 Plt Count 158 10^3/uL (130-450) 06/16/23 05:43 MPV 11.6 fL (7.4-11.4) H 06/16/23 05:43 Neut # (Auto) 9.0 10^3/uL (1.5-6.6) H 06/16/23 05:43 Lymph # (Auto) 0.3 10^3/uL (1.5-3.5) L 06/16/23 05:43 [place] # (Auto) 0.5 10^3/uL (0.0-1.0) 06/16/23 05:43 Eos # (Auto) 0.0 10^3/uL (0.0-0.7) 06/16/23 05:43 Baso # (Auto) 0.1 10^3/uL (0.0-0.1) 06/16/23 05:43 Absolute Nucleated RBC 0.00 x10^3/uL 06/16/23 05:43 Total Counted 100 06/15/23 05:42 Band Neuts % (Manual) 17 % (0-10) H 06/15/23 05:42 Abnorm Lymph % (Manual) 0 % 06/15/23 05:42 Nucleated RBC % 0.0 /100WBC 06/16/23 05:43 Neutrophils # (Manual) 8.4 10^3/uL (1.5-6.6) H 06/15/23 05:42 Lymphocytes # (Manual) 0.6 10^3/uL (1.5-3.5) L 06/15/23 05:42 Monocytes # (Manual) 0.0 10^3/uL (0.0-1.0) 06/15/23 05:42 Eosinophils # (Manual) 0.0 10^3/uL (0-0.7) 06/15/23 05:42 Basophils # (Manual) 0.0 10^3/uL (0-0.1) 06/15/23 05:42 Differential Comment MANUAL DIFFERENTIAL 06/15/23 05:42 Platelet Estimate NORMAL (130-450,000) (NORMAL) 06/15/23 05:42 Platelet Morphology NORMAL APPEARANCE (NORMAL) 06/12/23 05:44 RBC Morph Micro Appear NORMAL APPEARANCE (NORMAL) 06/15/23 05:42 PT 12.1 secs (9.9-12.6) 06/10/23 15:45 INR 1.1 (0.8-1.2) 06/10/23 15:45 Sodium 140 mmol/L (135-145) 06/16/23 05:43 Potassium 3.6 mmol/L (3.5-4.5) 06/16/23 05:43 Chloride 107 mmol/L (101-111) 06/16/23 05:43 Carbon Dioxide 25 mmol/L (21-32) 06/16/23 05:43 Anion Gap 8.0 (6-13) 06/16/23 05:43 BUN 21 mg/dL (6-20) H 06/16/23 05:43 Creatinine 0.9 mg/dL (0.6-1.3) 06/16/23 05:43 Estimated GFR (MDRD) 80 (>89) L 06/16/23 05:43 Glucose 109 mg/dL (74-104) H 06/16/23 05:43 POC Whole Bld Glucose 127 mg/dL (70 - 100) H 06/16/23 11:33 Estimat Average Glucose 108 mg/dL (70-100) H 06/10/23 23:34 Hemoglobin A1c % 5.4 % (4.27-6.07) 06/10/23 23:34 Lactic Acid 2.6 mmol/L (0.5-2.2) H 06/12/23 05:44 Calcium 8.5 mg/dL (8.5-10.3) 06/16/23 05:43 Phosphorus 5.0 mg/dL (2.5-5.0) 06/13/23 05:02 Magnesium 1.9 mg/dL (1.7-2.3) 06/13/23 05:02 Total Bilirubin 0.6 mg/dL (0.2-1.0) 06/11/23 05:10 AST 10 IU/L (10-42) 06/11/23 05:10 ALT 11 IU/L (10-60) 06/11/23 05:10 Alkaline Phosphatase 66 IU/L (42-121) 06/11/23 05:10 Total Protein 6.2 g/dL (6.4-8.9) L 06/11/23 05:10 Albumin 4.0 g/dL (3.2-5.5) 06/11/23 05:10 Globulin 2.2 g/dL (2.1-4.2) 06/11/23 05:10 Albumin/Globulin Ratio 1.8 (1.0-2.2) 06/11/23 05:10 Triglycerides 83 mg/dL (48-352) 06/10/23 23:34 Cholesterol 144 mg/dL (-200) 06/10/23 23:34 LDL Cholesterol, Calc 88 mg/dL (-129) 06/10/23 23:34 VLDL Cholesterol 17 mg/dL 06/10/23 23:34 HDL Cholesterol 39 mg/dL (60-) L 06/10/23 23:34 LDL/HDL Ratio 2.3 (<3.6) 06/10/23 23:34 Cholesterol/HDL Ratio 3.7 (<5.0) 06/10/23 23:34 Lipase 11 U/L (11-82) 06/10/23 16:00 TSH 1.35 uIU/mL (0.34-5.60) 06/10/23 23:34 Urine Color YELLOW 06/11/23 13:40 Urine Clarity CLEAR (CLEAR) 06/11/23 13:40 Urine pH 5.5 PH (5.0-7.5) 06/11/23 13:40 Ur Specific [place] 1.020 (1.002-1.030) 06/11/23 13:40 Urine Protein TRACE mg/dL (NEGATIVE) 06/11/23 13:40 Urine Glucose (UA) 500 mg/dL (NEGATIVE) H 06/11/23 13:40 Urine Ketones TRACE mg/dL (NEGATIVE) 06/11/23 13:40 Urine Occult Blood TRACE-INTA (NEGATIVE) 06/11/23 13:40 Urine Nitrite NEGATIVE (NEGATIVE) 06/11/23 13:40 Urine Bilirubin NEGATIVE (NEGATIVE) 06/11/23 13:40 Urine Urobilinogen 0.2 (NORMAL) E.U./dL (NORMAL) 06/11/23 13:40 Ur Leukocyte Esterase NEGATIVE (NEGATIVE) 06/11/23 13:40 Urine RBC 0-5 /HPF (0-5) 06/11/23 13:40 Urine WBC 0-3 /HPF (0-3) 06/11/23 13:40 Ur Squamous Epith Cells RARE Squamous (<= Few) 06/11/23 13:40 Urine Bacteria Rare /HPF (None Seen) 06/11/23 13:40 Urine Culture Comments NOT INDICATED 06/11/23 13:40 Nasal Influenza B PCR NOT DETECTED 06/11/23 03:10 Nasal Influenza A PCR NOT DETECTED 06/11/23 03:10 Nasal RSV (PCR) NOT DETECTED 06/11/23 03:10 Nasal SARS-CoV-2 (PCR) NOT DETECTED 06/11/23 03:10 - Procedures Procedures: Procedures ENDOSC POLYPECTOMY OF LG INTEST (11/08/12) INJECT/INFUSE NEC (11/08/12) INSPECTION OF LOWER INTESTINAL TRACT, ENDO (12/28/16) REPLACEMENT OF LEFT LENS WITH SYNTH SUB, PERC APPROACH (01/28/16) REPLACEMENT OF RIGHT LENS WITH SYNTH SUB, PERC APPROACH (01/07/16)
[2023-06-16] MEDS ORDERED: SIMETHICONE CHEW 80 MG TABLET PO PRN (12:00)
--- NOTE | 2023-06-16 12:00 | Discharge Plan ---
"Discharge Plan for SNF / JUDY - Discharge Plan And Transition Orders Problem Reviewed?: Yes Disposition: 01 Home, Self Care Condition: Stable Allergies and Adverse Reactions: Allergies Allergy/AdvReac Type Severity Reaction Status Date / Time milk AdvReac gas Verified 06/10/23 15:55 - SNF / [facility] Transition Orders Admit to (Facility): [facility] Discharge Diagnosis: SBO - resolved Medicare Certification Statement: I certify that Post Hospital intermediate care is medically necessary on a continuing basis for any of the conditions for which she/he is receiving care during hospitalization. Notify PCP of admission and forward orders to primary provider for signature. Weight on admission and: Daily Call PCP immediately if weight increases by: 5 kg Other Notification Orders: Call PCP immediately if patient develops dyspnea, chest pain/tightness or edema. Additional Bowel Program Orders: If no BM after 2 days, nurse may give M.O.M. 30ml PO PRN and/or ducolax Supp 1 TX and/or ALONZO 250mg P.O., and/or senna 1-2 tabs PO. On day 3 nurse may give repeat above order until residents constipation is resolved. Annual Influenza Vaccine (between Nov 12 and June 11): Yes Two-step PPD per [facility] [phone] or approved exception documents: Yes Medication Orders: PLEASE REFER TO THE DISCHARGE MEDICATION LIST. Insulin Orders?: Yes - Medications New Prescriptions: *Simethicone Oral Susp [*Simethicone] 80 mg PO Q6HR PRN #30 each PRN Reason: Gas - Diet Type: Geriatric Texture: Regular Liquids: Thin May have monthly special meal: Yes - Therapies | Activity Therapy: Evaluation | Treat if indicated: PT, OT Rehabilitation Potential: Maximize functional status, Return to independent living Activity: Activity as Tolerated Weight Bearing: Full Weight Follow Up: Follow up with PCP in 3-5 days."
[2023-06-16] MEDS: SIMETHICONE CHEW 80 MG TABLET PO SCH (13:06)
== END 2023-06-16 15:00 | disposition home or self-care (01) | DRG 389 ==
LOC: EDUNIT# → ED 15:36 → MS2 21:27
PROVIDERS: ADMIT Student in an Organized Health Care Education/Training Program; ATTEND Family Medicine
DX: K56.609 Unspecified intestinal obstruction, unspecified as to partial versus complete obstruction (principal); I42.9 Cardiomyopathy, unspecified; N17.9 Acute kidney failure, unspecified; I25.10 Atherosclerotic heart disease of native coronary artery without angina pectoris; Z85.72 Personal history of non-Hodgkin lymphomas; I10 Essential (primary) hypertension; N40.1 Benign prostatic hyperplasia with lower urinary tract symptoms; R35.0 Frequency of micturition; E78.00 Pure hypercholesterolemia, unspecified; E11.9 Type 2 diabetes mellitus without complications; Z79.84 Long term (current) use of oral hypoglycemic drugs; Z95.1 Presence of aortocoronary bypass graft; Z95.5 Presence of coronary angioplasty implant and graft; Z87.891 Personal history of nicotine dependence; K52.89 Other specified noninfective gastroenteritis and colitis; Z92.21 Personal history of antineoplastic chemotherapy; R33.8 Other retention of urine; Z79.01 Long term (current) use of anticoagulants; E86.1 Hypovolemia; I25.118 Atherosclerotic heart disease of native coronary artery with other forms of angina pectoris; K21.9 Gastro-esophageal reflux disease without esophagitis; I48.91 Unspecified atrial fibrillation
CPT/HCPCS: 36415; 71045; 71250; 74018; 74177; 80048; 80053; 80061; 81001; 83036; 83605; 83690; 83735; 84100; 84443; 85025; 85610; 87637; 96374; 96375; 96376; 97162; 97166; 97530; 97535; 99285; A9270; J1170; J1650; J1815; J2765; J7120; Q0162; Q9963; Q9967; 83721; 87086

== ENCOUNTER 2023-07-21 11:00 | Outpatient (CLI) | payer MEDICARE, OTHER | END 2023-07-21 23:59 | disposition home or self-care (01) | LOC: PC 11:00 | PROVIDERS: ATTEND Nurse Practitioner Gerontology | DX: Z51.5 Encounter for palliative care (principal); C85.90 Non-Hodgkin lymphoma, unspecified, unspecified site; E11.9 Type 2 diabetes mellitus without complications; E64.0 Sequelae of protein-calorie malnutrition; Z71.89 Other specified counseling | CPT/HCPCS: 99345; G0318; 99417 ==

== ENCOUNTER 2023-08-09 08:00 | Outpatient (CLI) | payer MEDICARE, OTHER | END 2023-08-09 23:59 | disposition home or self-care (01) | LOC: PC 08:00 | PROVIDERS: ATTEND Nurse Practitioner Gerontology | DX: Z51.5 Encounter for palliative care (principal); C85.90 Non-Hodgkin lymphoma, unspecified, unspecified site; R19.7 Diarrhea, unspecified; T46.4X5A Adverse effect of angiotensin-converting-enzyme inhibitors, initial encounter; T44.7X5A Adverse effect of beta-adrenoreceptor antagonists, initial encounter; I95.2 Hypotension due to drugs; I48.0 Paroxysmal atrial fibrillation; I25.10 Atherosclerotic heart disease of native coronary artery without angina pectoris; E11.9 Type 2 diabetes mellitus without complications; I50.9 Heart failure, unspecified; Z71.89 Other specified counseling; Z79.01 Long term (current) use of anticoagulants; Z79.52 Long term (current) use of systemic steroids; Z79.82 Long term (current) use of aspirin; Z79.899 Other long term (current) drug therapy | CPT/HCPCS: 99350 ==

== ENCOUNTER 2023-08-18 13:43 | Emergency (ER) | payer MEDICARE, OTHER ==
--- NOTE | 2023-08-18 14:05 | ED Physician Documentation ---
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 He had terrible abdominal pain for about a day and a half, this was about 2 weeks ago after eating some pineapple. It went away. Yesterday he had labs and CT scanning done to follow his lymphoma. His labs were notable for a white count of 19,000, and fairly stable anemia with hemoglobin of 9.9. His chemistries were unremarkable save modest hyperglycemia 175. The CT of his abdomen and pelvis demonstrated a suspicion for a small to large bowel fistula versus tubular abscess and a pelvic abscess and he was referred to the emergency department for this. He is not having any abdominal pain. He says his bowel movements have been normal. No fevers or chills. PD PAST MEDICAL HISTORY - Past Medical History Past Medical History: Yes Cardiovascular: Hypertension, High cholesterol, Coronary artery disease Respiratory: None Neuro: None Endocrine/Autoimmune: Type 2 diabetes GI: GERD, Hiatal hernia, Colon polyps MANAGER BATTERY: None : Benign prostate hypertrophy, Frequency, Other HEENT: None Psych: None, Claustrophobia Musculoskeletal: Osteoarthritis Derm: Other - Past Surgical History Past Surgical History: Yes General: Appendectomy, Other Cardiovascular: CABG, Coronary stent - Present Medications Home Medications: Ambulatory Orders Medication Instructions Recorded Confirmed Atorvastatin Calcium 40 mg PO DAILY 12/15/22 06/11/23 Ondansetron Odt [Zofran Odt] 4 mg TL Q6H PRN #90 tablet 12/22/22 06/11/23 Prochlorperazine Maleate 5 mg PO Q6H PRN #90 tablet 12/22/22 06/11/23 [Compazine] Amiodarone [Pacerone] 200 mg PO DAILY 02/05/23 06/11/23 Buspirone HCl 10 mg PO BID 02/05/23 06/11/23 Metoprolol Succinate [Toprol Xl] 25 mg PO DAILY 02/05/23 06/11/23 Omeprazole Magnesium 20 mg PO DAILY 02/05/23 06/11/23 lisinopriL [Zestril] 5 mg PO DAILY 02/05/23 06/11/23 Lidocaine/Prilocain 2.5% Cream See Rx Instructions .ROUTE .COMPLEX 05/26/23 06/11/23 [Emla 2.5% Cream] Ipratropium [place] 2 spray NS QID 06/11/23 06/11/23 Nitroglycerin [Nitrostat] 1 tab SL PRN 06/11/23 Simethicone *(Infant Susp)* 80 mg PO Q6HR PRN #30 each 06/16/23 Ciprofloxacin HCl [Cipro] 500 mg PO BID #20 tablet 08/18/23 metroNIDAZOLE [Flagyl] 500 mg PO BID 7 Days #14 tablet 08/18/23 - Allergies Allergies/Adverse Reactions: Allergies Allergy/AdvReac Type Severity Reaction Status Date / Time milk AdvReac gas Verified 08/18/23 13:48 - Social History Does the pt smoke?: No Smoking Status: Never smoker Does the pt drink ETOH?: Yes Does the pt have substance abuse?: No - Immunizations Immunizations are current?: Yes - POLST Patient has POLST: No POLST Status: Full Code PD ED PE NORMAL - Vitals Vital signs reviewed: Yes - General General: Alert and oriented X 3, No acute distress - Abdomen Abdomen: Normal bowel sounds, Soft, Other (Well-healed open appendicitis scar, minimal pelvic tenderness without surgical signs.) - Neuro Neuro: Alert and oriented X 3 Results - Vitals Vitals: Vital Signs - 24 hr 08/18/23 08/18/23 13:48 15:23 Temperature 36.5 C 35.7 C L Heart Rate 100 75 Respiratory 16 22 Rate Blood Pressure 150/100 H 141/64 H O2 Saturation 99 100 Oxygen O2 Source Room air - Labs Labs: Laboratory Tests 08/18/23 08/18/23 08/18/23 14:02 14:02 14:20 WBC 14.6 H RBC 3.35 L Hgb 9.5 L Hct 32.2 L MCV 96.1 H MCH 28.4 MCHC 29.5 L RDW 21.4 H Plt Count 302 MPV 10.2 Neut # (Auto) Not Reportable Lymph # (Auto) Not Reportable [place] # (Auto) Not Reportable Eos # (Auto) Not Reportable Baso # (Auto) Not Reportable Absolute Nucleated RBC Not Reportable Total Counted 100 Band Neuts % (Manual) 0 Abnorm Lymph % (Manual) 0 Nucleated RBC % Not Reportable Neutrophils # (Manual) 13.9 H Lymphocytes # (Manual) 0.3 L Monocytes # (Manual) 0.4 Eosinophils # (Manual) 0.0 Basophils # (Manual) 0.0 Differential Comment MANUAL DIFFERENTIAL Platelet Estimate NORMAL (130-450,000) Platelet Morphology NORMAL APPEARANCE RBC Morph Micro Appear 1+ SCHISTOCYTES Sodium 141 Potassium 3.7 Chloride 104 Carbon Dioxide 30 Anion Gap 7.0 BUN 21 H Creatinine 0.9 Estimated GFR (MDRD) 80 L Glucose 248 H Lactic Acid 2.9 H Calcium 8.9 Total Bilirubin 0.4 AST 13 ALT 18 Alkaline Phosphatase 124 H Total Protein 6.0 L Albumin 3.6 Globulin 2.4 Albumin/Globulin Ratio 1.5 PD Medical Decision Making - ED course Complexity details: reviewed results (CBC today showing improvement of his white count to 14.6 with relatively stable hemoglobin at 9.5. CMP notable for hyperglycemia and elevated alkaline phosphatase which he has had on and off in the past.) ED course: 83-year-old gentleman with relatively asymptomatic pelvic abscess probably related to perforated diverticulitis from when he had terrible abdominal pain 2 weeks ago. Initially I went and talked to our radiologist onsite who felt that it was fairly small and probably not immediately amenable to IR guided drainage but there was a small window through the left buttock that could be utilized if he failed to improve with conservative management. Subsequently at 2 PM I called our surgeon, Dr. Ray, he is in a case and will be available he says in about [address] Ray did come by and we reviewed the case and he agreed that since the patient is minimally symptomatic he could go home on antibiotics with a repeat CT within a few days to a week. He notes that he will be out of town next week so I will email Dr. Hall who is on-call next week to see if he can follow-up in the office. If not I advised the patient that he could return to the emergency department for CT scanning if that fell through the cracks. Departure - Departure Disposition: 01 Home, Self Care Clinical Impression: Pelvic abscess in male Condition: Stable Record reviewed to determine appropriate education?: Yes Follow-Up: Fatoumata Hall MD [Provider Admit Priv/Credential] - Prescriptions: Ciprofloxacin HCl [Cipro] 500 mg PO BID #20 tablet metroNIDAZOLE [Flagyl] 500 mg PO BID 7 Days #14 tablet Comments: You were seen today for an incidentally noted pelvic abscess. It is of small size and you do not seem to have any symptoms from it. I sent prescriptions for antibiotics to the [facility] pharmacy here in [place]. I will email the surgeon on-call next week to see if they can get into the office for reexamination and another CAT scan as you will need a CAT scan again early to mid next week to reevaluate it. Return sooner for new or worsening symptoms. The surgeon did email me back prior to your discharge, please call her office for an appointment early next week. Her name is Luz Hall. Forms: PCP List
[2023-08-18 14:09] LABS: BASOPHILS % (AUTO) 0.1 %; HCT - HEMATOCRIT 32.2 % (42.0-52.0); HGB - HEMOGLOBIN 9.5 g/dL (14.0-18.0); LYMPHOCYTES % (AUTO) 2.1 %; MEAN CORPUSCULAR HEMOGLOBIN 28.4 pg (27.0-31.0); MEAN CORPUSCULAR HGB CONC 29.5 g/dL (32.0-36.0); MEAN CORPUSCULAR VOLUME 96.1 fL (80.0-94.0); MEAN PLATELET VOLUME 10.2 fL (7.4-11.4); MONOCYTES % (AUTO) 1.7 %; NEUTROPHILS % (AUTO) 92.1 %; PLT - PLATELET COUNT 302 10^3/uL (130-450); RED BLOOD COUNT 3.35 10^6/uL (4.70-6.10); RED CELL DISTRIBUTION WIDTH 21.4 % (12.0-15.0); WHITE BLOOD COUNT 14.6 x10^3/uL (4.8-10.8)
[2023-08-18 14:13] LABS: ABNORMAL LYMPHS % (MANUAL) 0 %; BAND NEUTROPHILS % (MANUAL) 0 %
[2023-08-18 14:27] LABS: ALBUMIN 3.6 g/dL (3.2-5.5); ALBUMIN/GLOBULIN RATIO 1.5 (1.0-2.2); BILIRUBIN,TOTAL 0.4 mg/dL (0.2-1.0); CALCIUM 8.9 mg/dL (8.5-10.3); CREATININE 0.9 mg/dL (0.6-1.3); POTASSIUM 3.7 mmol/L (3.5-4.5)
[2023-08-18] MEDS: PIPERACILLIN/TAZOBACTAM 3.375 GM in SODIUM CHLORIDE 0.9% MINIBAG 100 ML IV STA (14:28)
[2023-08-18 14:42] LABS: DIFFERENTIAL COMMENT MANUAL DIFFERENTIAL; LYMPHOCYTES # (MANUAL) 0.3 10^3/uL (1.5-3.5); LYMPHOCYTES % (MANUAL) 2 %; MONOCYTES # (MANUAL) 0.4 10^3/uL (0.0-1.0); NEUTROPHILS # (MANUAL) 13.9 10^3/uL (1.5-6.6); PLATELET ESTIMATE, MANUAL NORMAL (130-450,000) (NORMAL); PLATELET MORPHOLOGY NORMAL APPEARANCE (NORMAL)
[2023-08-18 15:29] VITALS: BP 141/64; O2SAT 100
== END 2023-08-18 15:39 | disposition home or self-care (01) ==
LOC: ED 13:43
DX: K65.1 Peritoneal abscess (principal); R74.8 Abnormal levels of other serum enzymes; I10 Essential (primary) hypertension; E78.00 Pure hypercholesterolemia, unspecified; E11.65 Type 2 diabetes mellitus with hyperglycemia; I25.810 Atherosclerosis of coronary artery bypass graft(s) without angina pectoris; Z79.01 Long term (current) use of anticoagulants; Z95.1 Presence of aortocoronary bypass graft; Z79.899 Other long term (current) drug therapy
CPT/HCPCS: 36415; 80053; 83605; 85025; 87040; 87154; 96360; 99284

== ENCOUNTER 2023-08-19 23:51 | Emergency (ER) | payer MEDICARE, OTHER ==
[2023-08-20] MEDS: PIPERACILLIN/TAZOBACTAM 3.375 GM in SODIUM CHLORIDE 0.9% MINIBAG 100 ML IV STA ×3 (00:35→16:08)
[2023-08-20 00:52] LABS: BASOPHILS % (AUTO) 0.2 %; EOSINOPHILS % (AUTO) 0.5 %; HCT - HEMATOCRIT 27.4 % (42.0-52.0); HGB - HEMOGLOBIN 8.3 g/dL (14.0-18.0); LYMPHOCYTES # (AUTO) 0.6 10^3/uL (1.5-3.5); LYMPHOCYTES % (AUTO) 6.8 %; MEAN CORPUSCULAR HGB CONC 30.3 g/dL (32.0-36.0); MEAN CORPUSCULAR VOLUME 95.8 fL (80.0-94.0); MEAN PLATELET VOLUME 10.4 fL (7.4-11.4); MONOCYTES # (AUTO) 0.6 10^3/uL (0.0-1.0); NEUTROPHILS # (AUTO) 7.1 10^3/uL (1.5-6.6); NEUTROPHILS % (AUTO) 80.6 %; PLT - PLATELET COUNT 239 10^3/uL (130-450); RED BLOOD COUNT 2.86 10^6/uL (4.70-6.10); RED CELL DISTRIBUTION WIDTH 21.9 % (12.0-15.0); WHITE BLOOD COUNT 8.8 x10^3/uL (4.8-10.8)
--- NOTE | 2023-08-20 01:01 | ED Physician Documentation ---
History of Present Illness - Stated complaint Stated Complaint: SENT BY PCP - Chief complaint Chief Complaint: General - History obtained from History obtained from: Patient - Additonal information Additional information: HPI from patient. Information is also gathered from ED MD note dated 08/17/2023. Patient had outpatient CT scans (soft tissue neck, chest with IV contrast, A/P with IV contrast) on 08/17/23 for surveillance of his lymphoma; patient says there was no evidence of ongoing lymphoma and thus he is considered to be in remission. Unfortunately, the CT of the abdomen and pelvis did have unexpected findings of possible pelvic abscess with largest dimension 4.7 cm and "findings suspicious for left abdominal small bowel and large bowel fistula versus tubular abscess formation" (per radiologist reading). Because of these abnormality on CT abdomen/pelvis, he presented to this emergency department yesterday (08/18/2023). He was not in obvious painful distress and only minimal abdominal tenderness on exam. He was given IV zosyn. [facility] surgeon was consulted and the end result of this ED visit was d/c home with careful return precautions, prescribed cipro and metronidazole, and plan was to have outpatient reevaluation by local surgery group with likely repeat outpatient CT A/P. Unfortunately, a few hours prior to basim's arrival, I ED colleague received a call from our laboratory indicating that 1 of 2 sets of blood cultures drawn on the 08/17 visit are positive for gram-negative bacillary. My colleague thus contacted the patient; he discussed the culture result with the patient's and she was advised that patient needs to return to the ED immediately. On my HPI, patient says he says he still is not having any significant abdominal pain, and certainly no different than yesterday (also denied abdominal pain on that visit). He says he feels no different than yesterday. Denies blood in stool, denies black/tarry stool. He denies fever. Review of Systems Constitutional: denies: Fever, Chills, Sweats Cardiac: reports: Reviewed and negative Respiratory: reports: Reviewed and negative GI: denies: Abdominal Pain, Nausea, Vomiting, Hematemesis, Bloody / black stool PD PAST MEDICAL HISTORY - Past Medical History Cardiovascular: Hypertension, High cholesterol, Coronary artery disease Respiratory: None Neuro: None Endocrine/Autoimmune: Type 2 diabetes GI: GERD, Hiatal hernia, Colon polyps [employer]: None : Benign prostate hypertrophy, Frequency, Other HEENT: None Psych: None, Claustrophobia Musculoskeletal: Osteoarthritis Derm: Other - Past Surgical History Past Surgical History: Yes General: Appendectomy, Other Cardiovascular: CABG, Coronary stent - Present Medications Home Medications: Ambulatory Orders Medication Instructions Recorded Confirmed Atorvastatin Calcium 40 mg PO DAILY 12/15/22 06/11/23 Ondansetron Odt [Zofran Odt] 4 mg TL Q6H PRN #90 tablet 12/22/22 06/11/23 Prochlorperazine Maleate 5 mg PO Q6H PRN #90 tablet 12/22/22 06/11/23 [Compazine] Amiodarone [Pacerone] 200 mg PO DAILY 02/05/23 06/11/23 Buspirone HCl 10 mg PO BID 02/05/23 06/11/23 Metoprolol Succinate [Toprol Xl] 25 mg PO DAILY 02/05/23 06/11/23 Omeprazole Magnesium 20 mg PO DAILY 02/05/23 06/11/23 lisinopriL [Zestril] 5 mg PO DAILY 02/05/23 06/11/23 Lidocaine/Prilocain 2.5% Cream See Rx Instructions .ROUTE .COMPLEX 05/26/23 06/11/23 [Emla 2.5% Cream] Ipratropium Early 2 spray NS QID 06/11/23 06/11/23 Nitroglycerin [Nitrostat] 1 tab SL PRN 06/11/23 Simethicone *( Susp)* 80 mg PO Q6HR PRN #30 each 06/16/23 Ciprofloxacin HCl [Cipro] 500 mg PO BID #20 tablet 08/18/23 metroNIDAZOLE [Flagyl] 500 mg PO BID 7 Days #14 tablet 08/18/23 - Allergies Allergies/Adverse Reactions: Allergies Allergy/AdvReac Type Severity Reaction Status Date / Time milk AdvReac gas Verified 08/20/23 00:40 - Social History Does the pt smoke?: No Smoking Status: Never smoker Does the pt drink ETOH?: Yes Does the pt have substance abuse?: No - Immunizations Immunizations are current?: Yes - POLST Patient has POLST: No POLST Status: Full Code PD ED PE NORMAL - Vitals Vital signs reviewed: Yes - General General: Alert and oriented X 3, No acute distress, Well developed/nourished - Cardiac Cardiac: RRR - Abdomen Abdomen: Soft, Non distended, Other (minimal TTP left anterior pelvis without rebound or guarding. ) - Derm Derm: Normal color, Warm and dry - Neuro Neuro: Alert and oriented X 3 Eye Opening: Spontaneous Motor: Obeys Commands Results - Vitals Vitals: Vital Signs - 24 hr 08/20/23 08/20/23 08/20/23 00:06 01:00 02:30 Temperature 36.5 C Heart Rate 74 76 69 Respiratory 20 18 16 Rate Blood Pressure 145/91 H 122/58 L 145/61 H O2 Saturation 95 99 99 08/20/23 08/20/23 08/20/23 04:00 06:30 08:00 Temperature 36.4 C L Heart Rate 75 75 95 Respiratory 16 16 18 Rate Blood Pressure 152/65 H 145/68 H 135/67 H O2 Saturation 99 97 98 Oxygen O2 Source Room air - Labs Labs: Laboratory Tests 08/20/23 08/20/23 08/20/23 00:49 00:49 00:49 WBC 8.8 RBC 2.86 L Hgb 8.3 L Hct 27.4 L MCV 95.8 H MCH 29.0 MCHC 30.3 L RDW 21.9 H Plt Count 239 MPV 10.4 Neut # (Auto) 7.1 H Lymph # (Auto) 0.6 L [place] # (Auto) 0.6 Eos # (Auto) 0.0 Baso # (Auto) 0.0 Absolute Nucleated RBC 0.00 Nucleated RBC % 0.0 Sodium 144 Potassium 3.7 Chloride 109 Carbon Dioxide 29 Anion Gap 6.0 BUN 21 H Creatinine 1.0 Estimated GFR (MDRD) 71 L Glucose 95 Lactic Acid < 0.2 L Calcium 8.3 L Total Bilirubin 0.4 AST 16 ALT 18 Alkaline Phosphatase 92 Total Protein 4.8 L Albumin 3.1 L Globulin 1.7 L Albumin/Globulin Ratio 1.8 SARS-CoV-2 (PCR) 08/20/23 02:35 WBC RBC Hgb Hct MCV MCH MCHC RDW Plt Count MPV Neut # (Auto) Lymph # (Auto) [place] # (Auto) Eos # (Auto) Baso # (Auto) Absolute Nucleated RBC Nucleated RBC % Sodium Potassium Chloride Carbon Dioxide Anion Gap BUN Creatinine Estimated GFR (MDRD) Glucose Lactic Acid Calcium Total Bilirubin AST ALT Alkaline Phosphatase Total Protein Albumin Globulin Albumin/Globulin Ratio SARS-CoV-2 (PCR) NOT DETECTED PD Medical Decision Making - ED course Complexity details: reviewed results, re-evaluated patient, considered differential, d/w patient ED course: Treated and released from this emergency department yesterday for findings of likely pelvic abscess on his CT performed 2 days ago. Subsequently 1 of 2 blood cultures drawn on that visit have returned positive for gram negative backslide. By the time he has returned to the emergency department on this visit, the blood culture is PCR-positive for Bacteroides fragilis. An intraabdominal/pelvic abscess would be a highly likely explanation for this bacteremia. Although patient is not in any obvious distress on my exam, given the positive blood culture result, it would be best to admit patient for ongoing IV antibiotics and observation. On basim's blood work, his white blood cell count is 8.8 (down from 14.6 yesterday and 19.6 on 08/16). Hemoglobin 8.3, which was 9.5 yesterday. His serum lactate is normal. BUN 21 with normal (1.0) creatinine. 01:40: I discussed this case with on-call surgeon for [facility] (Dr. Mayes). He feels that this patient would benefit from transfer to higher level of care. His concerns are the size of the abscess (specifically that it is greater than 4 cm in its largest dimension), significant comorbities (such as h/o CABG with 30% EF), and lack of availability of IR over the weekend. Both the patient and his expressed strong preference for transfer to [facility] if this is an option (some of his doctors work out of [facility] including his home health clinician). [facility] indicates they do not have any beds at this time, but patient would be second on the list of admissions; they said they anticipate bed availability later this morning. I then discussed this case with Dr. Edwards (on-call surgery for [facility]); she says patient would be appropriate for their facility once a bed is available. Dr. Edwards says patient will be appropriate for hospitalist admission with IR and general surgical consult. I updated patient regarding bed availability, and told patient I would like to contact some other hospitals to see if a bed is available at this time. The patient again reiterates his strong preference for transfer to [facility] and he is asking to be held in the ED until later this morning in anticipation of bed availability there. The patient is given 3.375 gm IV Zosyn early in tonight's ED stay. Two new sets of blood cultures are drawn and sent. At the end of my shift, care of patient is turned over to oncoming ED physician (Dr. Watt) pending bed availability at [facility] or, if need be, consideration of transfer to closest appropriate facility should [facility] not have beds available by later this morning. Departure - Departure Disposition: 02 Transfer Acute Care Hosp Clinical Impression: Anaerobic bacteremia Condition: Stable Forms: PCP List
[2023-08-20 01:13] LABS: ALBUMIN 3.1 g/dL (3.2-5.5); ALBUMIN/GLOBULIN RATIO 1.8 (1.0-2.2); BILIRUBIN,TOTAL 0.4 mg/dL (0.2-1.0); CALCIUM 8.3 mg/dL (8.5-10.3); POTASSIUM 3.7 mmol/L (3.5-4.5); TOTAL PROTEIN 4.8 g/dL (6.4-8.9)
--- NOTE | 2023-08-20 15:36 | PHARMACY PROGRESS NOTE ---
- Best Possible Medication History Admit Date and Time: Processed by: Pharmacy Medications reviewed in ED?: Yes Medication History completed: Yes Patient Interview: Completed Secondary Source(s): Other family member, Physician records, Pharmacy records, Insurance records As the person ultimately responsible for medication therapy, providers are able to order a medication from an existing home medication list in [facility] via the "Reconcile Routine" prior to Confirmation of that medication by direct support professional. Such practice is discouraged except when the physician, in their clinical judgment, deems that a medical need exists for a medication without regard to previous use.
[2023-08-20] MEDS: PIPERACILLIN/TAZOBACTAM 3.375 GM in SODIUM CHLORIDE 0.9% MINIBAG 100 ML IV SCH (22:03)
[2023-08-21] MEDS ORDERED: ACETAMINOPHEN 500 MG TABLET PO PRN (01:31)
[2023-08-21] MEDS ORDERED: ONDANSETRON 4 MG/2 ML VIAL IVP PRN (01:31)
[2023-08-21] MEDS: ATORVASTATIN 40 MG TABLET PO STA (01:46)
[2023-08-21 06:31] LABS: BASOPHILS % (AUTO) 0.4 %; EOSINOPHILS # (AUTO) 0.1 10^3/uL (0.0-0.7); EOSINOPHILS % (AUTO) 1.1 %; HCT - HEMATOCRIT 27.4 % (42.0-52.0); HGB - HEMOGLOBIN 8.3 g/dL (14.0-18.0); LYMPHOCYTES # (AUTO) 0.5 10^3/uL (1.5-3.5); LYMPHOCYTES % (AUTO) 7.4 %; MEAN CORPUSCULAR HGB CONC 30.3 g/dL (32.0-36.0); MEAN CORPUSCULAR VOLUME 95.8 fL (80.0-94.0); MEAN PLATELET VOLUME 10.4 fL (7.4-11.4); MONOCYTES # (AUTO) 0.5 10^3/uL (0.0-1.0); MONOCYTES % (AUTO) 6.6 %; NEUTROPHILS % (AUTO) 81.4 %; PLT - PLATELET COUNT 203 10^3/uL (130-450); RED BLOOD COUNT 2.86 10^6/uL (4.70-6.10); RED CELL DISTRIBUTION WIDTH 21.9 % (12.0-15.0); WHITE BLOOD COUNT 7.3 x10^3/uL (4.8-10.8)
[2023-08-21 07:00] LABS: CALCIUM 8.2 mg/dL (8.5-10.3); CREATININE 0.8 mg/dL (0.6-1.3); POTASSIUM 3.2 mmol/L (3.5-4.5)
--- NOTE | 2023-08-21 07:29 | ED Physician Documentation ---
ED Addendum - Addendum Addendum: 08/21/23 07:29 Patient seen and examined at the bedside. He has no current complaints. Had a bowel movement this morning and has been walking. We are hopeful that [facility] will be able to take him but now patient is amenable to broadening the search to other facilities if we have not heard from them in the next few hours. This morning his labs are stable with stable anemia and no white count. His blood cultures from this visit are no growth to date, blood culture from the sixth is preliminarily positive for Bacteroides fragilis with no sensitivities at this time. He remains on scheduled Zosyn and we have ordered his home meds with Lovenox and lieu of his DOAC. 08/21/23 10:28 [facility] sounds like they do have a bed but wanted me to discuss it with the radiologist. I did discuss the case by Dr. Daniel Gomez who reviewed the images from the fifth and felt like it was probably not big enough to need an intervention. As such we agreed on a reCT since it has been 4 days for reevaluation of the abscess. 08/21/23 13:13 Radiologist feels abscess is smaller than it was, now with current calculated volume of 9 mL. As such I do believe he can go home. I am going to add metronidazole based on: https://www.ncbi.nlm.nih.gov/books/GHB733281/ I did discuss the case by phone with her surgeon, Dr. Mayes who agrees with outpatient follow-up given these new findings. Disposition: Discharged home Condition: Stable Diagnosis: 1. Perforated diverticulitis 2. Pelvic abscess
[2023-08-21] MEDS: PANTOPRAZOLE 40 MG TABLET PO SCH (07:32)
[2023-08-21 08:56] VITALS: O2SAT 100
[2023-08-21] MEDS: METOPROLOL SUCCINATE 25 MG TABLET PO SCH (09:03)
[2023-08-21] MEDS: ENOXAPARIN 100 MG/ML SYRINGE SUBQ SCH (09:45)
[2023-08-21] MEDS ORDERED: iohexoL-300 100 ML VIAL ONE (10:31)
[2023-08-21] MEDS ORDERED: DIATRIZOATE MEGLU/DIATRIZO SOD 30 ML BOTTLE PO ONE (10:31)
[2023-08-21] MEDS: iohexoL-300 100 ML VIAL IVP ONE (12:08)
[2023-08-21] MEDS: DIATRIZOATE MEGLU/DIATRIZO SOD 30 ML BOTTLE PO ONE (12:08)
--- NOTE | 2023-08-21 12:55 | CT Report ---
PROCEDURE: Abdomen/Pelvis W INDICATIONS: IV and PO, pelvic abscess eval CONTRAST: 100ml omni 300 TECHNIQUE: After the administration of intravenous contrast, a CT scan of the abdomen and pelvis was performed. Images were recorded and evaluated at appropriate window settings. Reformats: coronal and sagittal. F or radiation dose reduction, the following was used: automated exposure control, adjustment of mA and /or kV according to patient size. COMPARISON: CT chest 08/17/2023. CT abdomen and pelvis 08/17/2023, 06/10/2023. FINDINGS: Image quality: Diagnostic. Lower chest: Basilar atelectasis. Miniscule left pleural fluid. Post median sternotomy. Liver: No solid mass. Gallbladder: No radiopaque stones or wall thickening. Biliary tree: No dilatation. Spleen: No splenomegaly. Pancreas: No pancreatic ductal dilation. Adrenals: No adrenal nodule. Kidneys and ureters: No hydronephrosis. No renal cystic lesion which requires follow up. No solid mas s. Stomach, bowel and peritoneum: Extensive diverticulosis. The appendix is not identified. No small bow el obstruction. Mildly prominent loop of small bowel in the proximal jejunum. Small air-fluid level. Stomach is not distended. No pneumoperitoneum. -Deep pelvis rim-enhancing fluid collection measuring 3.8 x 2.3 x 1.9 cm, estimated volume 9 cc; (04/14 24 and ), previously 4.7 x 2.6 x 2.4 cm, estimated volume 15 cc. Slightly decreased in size in t he short-term interval. -Anterior pelvis/left lower abdomen rim-enhancing collection measuring 2.6 x 1.6 x 0.6 cm, ( and ), not significant changed. Fluid tracks up to the left mid abdomen, (). No new collection. Trace stranding in the right paracolic gutter. Lymph nodes: No central or retroperitoneal adenopathy. Vessels: No infrarenal aortic aneurysm. PELVIS Reproductive organs: Unremarkable. Bladder: Decompressed. Pelvic lymph nodes: No pelvic adenopathy by size criteria. Bones: No aggressive osseous abnormality. Other: No significant ventral or inguinal hernia. IMPRESSION: 1. Deep pelvic abscess measuring 3.8 cm, estimated volume of 9 cc. Slightly decreased in size in the short-term interval compared to 08/17/2023. Likely sequelae of diverticulitis. 2. Anterior pelvis/left abdomen small tracking fluid collection. Not significant changed. 3. No new fluid collection. No pneumoperitoneum. Reviewed by: Dnaiel Gomez MD on 08/21/2023 12:54 PM PDT Approved by: Daniel Gomez MD on 08/21/2023 12:54 PM PDT Station ID: [id number]
[2023-08-21] MEDS: metroNIDAZOLE 250 MG TABLET PO STA (13:27)
[2023-08-21 14:14] VITALS: BP 120/53
[2023-08-21] MEDS ORDERED: ATORVASTATIN 40 MG TABLET PO SCH (21:00)
== END 2023-08-21 14:00 | disposition home or self-care (01) ==
LOC: ED 23:51
DX: K57.92 Diverticulitis of intestine, part unspecified, without perforation or abscess without bleeding (principal); K65.1 Peritoneal abscess; R78.81 Bacteremia; I10 Essential (primary) hypertension; E78.00 Pure hypercholesterolemia, unspecified; I25.810 Atherosclerosis of coronary artery bypass graft(s) without angina pectoris; E11.9 Type 2 diabetes mellitus without complications; Z95.1 Presence of aortocoronary bypass graft; Z79.899 Other long term (current) drug therapy
CPT/HCPCS: 36415; 74177; 80048; 80053; 83605; 85025; 87040; 87635; 96365; 96366; 96372; 99284; A9270; J1650; Q9963; Q9967

== ENCOUNTER 2023-08-24 08:00 | Outpatient (CLI) | payer MEDICARE, OTHER | END 2023-08-24 23:59 | disposition home or self-care (01) | LOC: PC 08:00 | PROVIDERS: ATTEND Nurse Practitioner Gerontology | DX: Z51.5 Encounter for palliative care (principal); K65.1 Peritoneal abscess; M62.81 Muscle weakness (generalized); I50.9 Heart failure, unspecified; K57.30 Diverticulosis of large intestine without perforation or abscess without bleeding; Z71.89 Other specified counseling; Z79.82 Long term (current) use of aspirin; Z79.899 Other long term (current) drug therapy; Z85.72 Personal history of non-Hodgkin lymphomas | CPT/HCPCS: 99215 ==

== ENCOUNTER 2023-09-30 08:00 | Outpatient (CLI) | payer MEDICARE, OTHER | END 2023-09-30 23:59 | disposition home or self-care (01) | LOC: LAB.N 08:00 | PROVIDERS: ATTEND Family Medicine | DX: R21 Rash and other nonspecific skin eruption (principal) | CPT/HCPCS: 87070; 87205 ==

== ENCOUNTER 2023-10-04 08:00 | Outpatient (CLI) | payer MEDICARE, OTHER | END 2023-10-05 23:59 | disposition home or self-care (01) | LOC: PC 08:00 | PROVIDERS: ATTEND Nurse Practitioner Gerontology | DX: Z51.5 Encounter for palliative care (principal); K57.20 Diverticulitis of large intestine with perforation and abscess without bleeding; R21 Rash and other nonspecific skin eruption; I50.9 Heart failure, unspecified; I48.91 Unspecified atrial fibrillation; I25.10 Atherosclerotic heart disease of native coronary artery without angina pectoris; E11.9 Type 2 diabetes mellitus without complications; Z71.89 Other specified counseling; Z79.01 Long term (current) use of anticoagulants; Z85.72 Personal history of non-Hodgkin lymphomas; Z95.1 Presence of aortocoronary bypass graft | CPT/HCPCS: 99349 ==

== ENCOUNTER 2024-07-11 17:28 | Inpatient (IN) ==
--- OUTSIDE RECORDS SUMMARY | 2024-07-11 17:46 | EXTERNAL MEDICAL SUMMARY RPT | Continuity of Care Document ---
Author Organization [place] Address [address] [address] Phone Problems date description facility 2024-04-12 12:17 Solitary pulmonary nodule [facility] 2024-04-12 12:17 Other nonspecific abnormal find ing [facility] 2024-04-13 00:03 Essential (primary) hypertensio n [facility] 2024-04-13 00:03 Atherosclerotic hear t disease of [place] coronary artery with other forms of angina pectoris [facility] 2024-04-13 00:03 Other forms of dyspnea [facility] 2024-04-16 14:48 Dyspnea, unspecified [facility] 2024-04-16 14:48 Shortness of breath [facility] 2024-04-16 14:48 Edema, unspecified [facility] 2024-04-19 11:54 Procedure and treatm ent not carried out, unspecified reason [facility] 2024-04-26 13:56 Solitary pulmonary nodule [facility] 2024-04-26 13:56 Other nonspecific abnormal find ing of lung field [facility] 2024-04-30 14:40 Type 2 diabetes mellitus withou t complications [facility] 2024-04-30 14:40 Essential (primary) hypertensio n [facility] 2024-04-30 14:40 Unspecified atrial fibrillation [facility] 2024-04-30 14:54 Type 2 diabetes mellitus withou t complications [facility] 2024-04-30 14:54 Essential (primary) hypertensio n [employer] [facility] 2024-04-30 14:54 Unspecified atrial fibrillation [facility] 2024-05-08 08:37 Solitary pulmonary nodule [facility] 2024-05-08 08:37 Other nonspecific abnormal find ing of lung field [facility] 2024-05-08 12:27 Diffuse large B-cell lymphoma, lymph nodes of multiple sites [facility] 2024-05-09 00:01 Solitary pulmonary nodule [facility] 2024-05-09 00:01 Other nonspecific abnormal find ing of lung field [facility] 2024-05-09 00:03 Diffuse large B-cell lymphoma, lymph nodes of multiple sites [facility] 2024-05-14 14:12 Unspecified B-cell l ymphoma, lymph nodes of multiple sites [facility] 2024-05-14 14:12 Non-Hodgkin lymphoma, unspecifi ed, unspecified site [facility] 2024-05-15 09:24 Benign prostatic hyp erplasia without lower urinary tract symptoms [facility] 2024-05-21 11:02 Diffuse large B-cell lymphoma, lymph nodes of multiple sites [facility] 2024-05-21 11:03 Diffuse large B-cell lymphoma, lymph nodes of multiple sites [facility] 2024-05-21 11:03 Nontoxic single thyroid nodule [facility] 2024-05-21 11:03 Benign prostatic hyp erplasia without lower urinary tract symptoms [facility] 2024-05-21 11:03 Solitary pulmonary nodule [facility] 2024-05-21 11:03 Abnormal findings on diagnostic imaging of other parts of digestive tract [facility] 2024-05-21 11:03 Encounter for genera l adult medical examination without abnormal findings [facility] 2024-05-21 11:15 Type 2 diabetes mellitus withou t complications [facility] 2024-05-21 11:15 Essential (primary) hypertensio n [employer] 2024-05-21 11:15 Unspecified atrial fibrillation [facility] 2024-05-21 12:32 Type 2 diabetes mellitus withou t complications [facility] 2024-05-21 12:32 Essential (primary) hypertensio n [employer] 2024-05-21 12:32 Unspecified atrial fibrillation [facility] 2024-06-11 16:36 Type 2 diabetes mellitus withou t complications [facility] 2024-06-11 16:36 [facility], [facility]-11 16:36 Essential (primary) hypertensio n Replaced By [facility] 2024-06-11 16:36 Atherosclerotic hear t disease of [place] coronary artery with other forms of angina pectoris Replaced By [facility] 2024-06-11 16:36 Heart failure, unspecified [facility] 2024-06-11 16:36 Gastro-esophageal reflux diseas e without esophagitis Replaced By [facility] 2024-06-11 16:36 Sciatica, unspecified side [facility] 2024-06-25 09:29 Unspecified B-cell lymphoma, un specified site Replaced By [facility] 2024-06-25 09:29 Type 2 diabetes mellitus withou t complications Replaced By [facility] 2024-06-25 09:29 Hyperlipidemia, unspecified [facility] 2024-06-25 09:29 Benign prostatic hyp erplasia without lower urinary tract symptoms Replaced By [facility] 2024-06-25 09:29 Generalized abdominal pain [facility] 2024-06-25 10:03 Type 2 diabetes mellitus withou t complications Replaced By [facility] 2024-06-25 10:03 [facility] 10:03 Unspecified atrial fibrillation Replaced By [facility] 2024-06-26 00:03 Unspecified B-cell lymphoma, un specified site Replaced By [facility] 2024-06-26 00:03 Type 2 diabetes mellitus withou t complications Replaced By [facility] 2024-06-26 00:03 Hyperlipidemia, unspecified [facility] 2024-06-26 00:03 Benign prostatic hyp erplasia without lower urinary tract symptoms Replaced By [facility] 2024-06-26 00:03 Generalized abdominal pain [facility] 2024-06-26 06:56 Type 2 diabetes mellitus withou t complications Replaced By [facility] 2024-06-26 06:56 [facility] 20[facility]26 06:56 Unspecified atrial fibrillation Replaced By [facility] 2024-06-26 09:09 Unspecified B-cell lymphoma, un specified site Replaced By [facility] 2024-06-26 09:09 Type 2 diabetes mellitus withou t complications Replaced By [facility] 2024-06-26 09:09 Hyperlipidemia, unspecified [facility] 2024-06-26 09:09 Benign prostatic hyp erplasia without lower urinary tract symptoms Replaced By [facility] 2024-06-26 09:09 Generalized abdominal pain [facility] [employer] 2024-06-26 09:24 Benign prostatic hyp erplasia without lower urinary tract symptoms [facility] 2024-06-28 12:18 Chronic systolic (congestive) h eart failure [facility] Results/Labs test date facility value unit notes Result panel 1 LIPASE 2024-04-12 13:22 [facility] < 10 u/l As of September 2022 testing method has changed, this may include reference ranges. NUCLEATED RED BLOOD CELLS AUTO 2024-04-12 13:22 [facility] 0.0 /100wbc (missing) BASOPHILS # (AUTO) 2024-04-12 13:22 [facility] 0.0 10 3/ul (missing) NRBC ABSOLUTE COUNT (AUTO) 2024-04-12 13:22 [facility] 0.00 x10 3/ul (missing) EOSINOPHILS # (AUTO) 2024-04-12 13:22 [facility] 0.1 10 3/ul (missing) BILIRUBIN,TOTAL 2024-04-12 13:22 [facility] 0.6 mg /dl As of September 2022 testing method has changed, this may include reference ranges. MONOCYTES # (AUTO) 2024-04-12 13:22 [facility] 0.7 10 3/ul (missing) LYMPHOCYTES # (AUTO) 2024-04-12 13:22 [facility] 0.7 10 3/ul (missing) CREATININE 2024-04-12 13:22 [facility] 1.1 mg/dl As of September 2022 testing method has changed, this may include reference ranges. ALBUMIN/GLOBULIN RATIO 2024-04-12 13:22 [facility] 1.3 (missing) (missing) GLOBULIN 2024-04-12 13:22 [facility] 1.7 g/dl (missing) ALT ALANINE AMINOTRANSFERASE 2024-04-12 13:22 [facility] 10 iu/l As of September 2022 testing method has changed, this may include reference ranges. HGB - HEMOGLOBIN 2024-04-12 13:22 [facility] 10.2 g /dl (missing) MEAN PLATELET VOLUME 2024-04-12 13:22 [facility] 10.3 fl (missing) WHITE BLOOD COUNT 2024-04-12 13:22 [facility] 10.8 x10 3/ul (missing) CHLORIDE 2024-04-12 13:22 [facility] 107 mmol/l As of September 2022 testing method has changed, this may include reference ranges. BUN - BLOOD UREA NITROGEN 2024-04-12 13:22 [facility] 12 mg/dl As of Sep testing method has changed, this may include reference ranges. TROPONIN I HIGH SENSITIVITY 2024-04-12 13:22 [facility] 12.0 ng/l A HIGH SENSITIVITY TROPONIN result of >= 14.9 ng/L for females is considered POSITIVE. A HIGH SENSITIVITY TROPONIN result of >= 19.8 ng/L for males is considered POSITIVE. A HIGH SENSITIVITY TROPONIN result of >= 17.9 ng/L for unspecified is considered POSITIVE. ALKALINE PHOSPHATASE 2024-04-12 13:22 [facility] 122 iu/l As of September 2022 testing method has changed, this may include reference ranges. GLUCOSE 2024-04-12 13:22 [facility] 125 mg/dl As of September 2022 testing method has changed, this may include reference ranges. SODIUM 2024-04-12 13:22 [facility] 142 mmol/l As of September 2022 testing method has changed, this may include reference ranges. RED CELL DISTRIBUTION WIDTH 2024-04-12 13:22 [facility] 15.7 % (missing) BNP - B-NATRIURETIC PEPTIDE 2024-04-12 13:22 [facility] 1740 pg/ml (missing) ALBUMIN/GLOBULIN RATIO 2024-04-12 13:22 [facility] 2.4 (missing) (missing) CARBON DIOXIDE - CO2 2024-04-12 13:22 [facility] 26 mmol/l As of September 2022 testing method has changed, this may include reference ranges. MEAN CORPUSCULAR HEMOGLOBIN 2024-04-12 13:22 [facility] 26.6 pg (missing) MEAN CORPUSCULAR HGB CONC 2024-04-12 13:22 [facility] 29.9 g/dl (missing) GLOBULIN 2024-04-12 13:22 [facility] 3.2 g/dl (missing) POTASSIUM 2024-04-12 13:22 [facility] 3.5 mmol/l As of September 2022 testing method has changed, this may include reference ranges. RED BLOOD COUNT 2024-04-12 13:22 [facility] 3.84 10 6/ul (missing) PLT - PLATELET COUNT 2024-04-12 13:22 [facility] 310 10 3/ul (missing) HCT - HEMATOCRIT 2024-04-12 13:22 [facility] 34.1 % (missing) ALBUMIN 2024-04-12 13:22 [facility] 4.0 g/dl As of September 2022 testing method has changed, this may include reference ranges. TOTAL PROTEIN 2024-04-12 13:22 [facility] 5.7 g/dl As of September 2022 testing method has changed, this may include reference ranges. GFR - MDRD 2024-04-12 13:22 [facility] 64 (russell wolfe) Social History date description facility
[2024-07-11 17:55] LABS: BASOPHILS % (AUTO) 0.2 %; EOSINOPHILS # (AUTO) 0.1 10^3/uL (0.0-0.7); EOSINOPHILS % (AUTO) 0.9 %; HCT - HEMATOCRIT 37.2 % (42.0-52.0); HGB - HEMOGLOBIN 11.6 g/dL (14.0-18.0); LYMPHOCYTES # (AUTO) 0.9 10^3/uL (1.5-3.5); LYMPHOCYTES % (AUTO) 6.2 %; MEAN CORPUSCULAR HEMOGLOBIN 27.7 pg (27.0-31.0); MEAN CORPUSCULAR HGB CONC 31.2 g/dL (32.0-36.0); MEAN CORPUSCULAR VOLUME 88.8 fL (80.0-94.0); MEAN PLATELET VOLUME 10.5 fL (7.4-11.4); MONOCYTES # (AUTO) 0.7 10^3/uL (0.0-1.0); MONOCYTES % (AUTO) 5.2 %; NEUTROPHILS # (AUTO) 12.2 10^3/uL (1.5-6.6); NEUTROPHILS % (AUTO) 86.9 %; PLT - PLATELET COUNT 259 10^3/uL (130-450); RED BLOOD COUNT 4.19 10^6/uL (4.70-6.10); RED CELL DISTRIBUTION WIDTH 17.8 % (12.0-15.0); WHITE BLOOD COUNT 14.1 x10^3/uL (4.8-10.8)
[2024-07-11 18:08] LABS: ALBUMIN 4.3 g/dL (3.2-5.5); ALBUMIN/GLOBULIN RATIO 1.2 (1.0-2.2); ALKALINE PHOSPHATASE 133 IU/L (42-121); ALT ALANINE AMINOTRANSFERASE 10 IU/L (10-60); AST ASPARTATE AMINOTRANSFERASE 9 IU/L (10-42); BILIRUBIN,TOTAL 0.6 mg/dL (0.2-1.0); BUN - BLOOD UREA NITROGEN 14 mg/dL (6-20); CALCIUM 9.4 mg/dL (8.5-10.3); CARBON DIOXIDE - CO2 28 mmol/L (21-32); CHLORIDE 100 mmol/L (101-111); GFR - MDRD 71 (>89); GLUCOSE 122 mg/dL (74-104); SODIUM 136 mmol/L (135-145); TOTAL PROTEIN 7.8 g/dL (6.4-8.9)
[2024-07-11 18:11] LABS: LIPASE < 10 U/L (11-82)
--- NOTE | 2024-07-11 18:48 | ED Physician Documentation ---
PD HPI ABD PAIN Stated complaint Stated Complaint: ABD PX/N/V Chief complaint Chief Complaint: Abd Pain History obtained from History obtained from: Patient Additional information Additional information: Patient is an 84-year-old male who presents to the emergency department with abdominal pain, nausea and vomiting. He states that this started this morning. He states it comes and goes. He states that it feels like a burning in his upper abdomen and a cramping. He states bowel movements are normal. No fevers or chills. No recent antibiotics. No recent travel. No blood in the stool. No blood in the emesis. Review of Systems Constitutional Denies: Fever or Chills Cardiovascular Denies: chest pain Respiratory Denies: Cough Integumentary/Breast Denies: Rash Neurological Denies: Headache Meds/Allgy Home Medications Ambulatory Orders Medication Instructions Recorded Confirmed nitroglycerin 0.4 mg sublingual 1 tab sublingual Q5M PRN Chest Pain 06/11/23 06/11/24 tablet acetaminophen 650 mg 650 mg PO Q12H PRN fever or pain 03/12/24 06/11/24 tablet,extended release ipratropium bromide 21 mcg (0.03 2 spray intranasal QID #90 mL 03/12/24 06/26/24 %) nasal spray ondansetron 4 mg disintegrating 4 mg translingual Q6H PRN Nausea / 03/12/24 06/11/24 tablet Vomiting atorvastatin 40 mg tablet 40 mg PO QDAY #90 tabs 04/23/24 06/26/24 rivaroxaban 20 mg tablet (Xarelto) 20 mg PO QPM #90 tabs 04/23/24 06/26/24 furosemide 20 mg tablet 20 mg PO QDAY #180 tabs 04/26/24 06/26/24 metoprolol succinate 25 mg capsule 25 mg PO QDAY 05/22/24 06/26/24 sprinkle, ext. release 24 hr lisinopril 5 mg tablet 5 mg PO QDAY #90 tabs 06/11/24 06/26/24 omeprazole magnesium 20 mg 20 mg PO QDAY #90 caps 06/11/24 06/26/24 capsule,delayed release oxybutynin chloride 5 mg 5 mg PO QDAY #30 tabs 06/26/24 06/26/24 tablet,extended release 24 hr Allergies Allergies Allergy/AdvReac Type Severity Reaction Status Date / Time empagliflozin (From AdvReac Nausea Verified 07/11/24 17:40 Jardiance) milk AdvReac gas Verified 07/11/24 17:40 PFSH Active Problems All Active Problems (Updated 07/11/24 @ 21:11 by KATRIN Linares) S/P appendectomy (Acute) SBO (small bowel obstruction) (Acute) Frequent urination (Acute) Sciatica (Acute) Urinary incontinence (Acute) Abnormal computed tomography of sigmoid colon (Acute) Healthcare maintenance (Acute) Right lower lobe pulmonary nodule (Acute) Alcohol abuse (Acute) Hyperlipidemia (Acute) BPH (benign prostatic hyperplasia) (Acute) Macular degeneration (Acute) Gout (Acute) Vitamin D deficiency (Acute) Hx of adenomatous colonic polyps (Acute) Anemia (Acute) Severe malnutrition (Acute) Right thyroid nodule (Acute) Diffuse large B-cell lymphoma of lymph nodes of multiple regions (Acute) Atrial fibrillation (Acute) GERD (gastroesophageal reflux disease) (Acute) DM type 2 (diabetes mellitus, type 2) (Acute) HTN (hypertension) (Acute) Dyspnea on exertion (Acute) CAD (coronary artery disease) (Acute) Medical History Medical History (Updated 07/11/24 @ 21:11 by KATRIN Linares) Congestive heart failure Dizziness Chest pain Local reaction to bee sting Abdominal pain Small bowel obstruction Abnormal CT of the abdomen Diverticulitis Ground glass opacity present on imaging of lung Social History Social History Smoking Status: Former smoker If you are a former smoker, when did you quit? (Date/Year): 1982 Number of Years Smoked: 31 How many cigarettes a day do you smoke? (20 cigarettes=1 Pk): 20 Second hand tobacco smoke exposure: Yes Do you dip or chew tobacco?: No Do you vape?: No Patient requests smoking cessation consult: No Initiate information on smoking cessation: No Living arrangement: At home Living Condition: With spouse/s.o. Support Person: No Relationship: How many days per week?: 4 Level: Independent Do you feel safe in your home environment?: Yes Suffered physical, verbal, emotional, or financial abuse?: No History of Abuse: No ETOH Use: None Frequency: Daily Substance Use: denies use Are you sexually active?: No Retired: Yes Dates of Service: POLST Patient has POLST: No POLST Status: Full Code Exam Exam Vital Signs: Vital Signs x48h Temp Pulse Resp BP Pulse Ox 07/11/24 20:00 75 148/75 H 100 07/11/24 18:46 66 20 135/52 H 100 07/11/24 17:33 36.4 C L 72 18 160/69 H 98 Constitutional normal general appearance and no apparent distress HENMT oropharynx normal moist mucous membranes Eyes PERRL Neck/C-Spine visual inspection normal Respiratory breath sounds equal bilaterally, normal respiratory effort and clear to auscultation bilaterally Cardiovascular normal heart rate noted and regular rhythm noted Gastrointestinal abdomen soft to palpation Tender to palpation epigastric without peritoneal signs. Mildly distended Genitourinary no CVA tenderness Extremities no edema Neurology speech normal Psychiatry mental status grossly normal and oriented x3 Skin skin color normal Results Vitals Vitals: Vital Signs - 24 hr 07/11/24 17:33 07/11/24 18:46 07/11/24 20:00 Temperature 36.4 C L Temperature Source Skin Pulse Rate 72 66 75 Respiratory Rate 18 20 Blood Pressure 160/69 H 135/52 H 148/75 H O2 Saturation 98 100 100 O2 Source Room air Room air Room air Pain Intensity 6 4 Oxygen O2 Source Room air Labs Labs: Laboratory Tests 07/11/24 07/11/24 17:50 19:14 WBC 14.1 H RBC 4.19 L Hgb 11.6 L Hct 37.2 L MCV 88.8 MCH 27.7 MCHC 31.2 L RDW 17.8 H Plt Count 259 MPV 10.5 Neut # (Auto) 12.2 H Lymph # (Auto) 0.9 L [place] # (Auto) 0.7 Eos # (Auto) 0.1 Baso # (Auto) 0.0 Absolute Nucleated RBC 0.00 Nucleated RBC % 0.0 Sodium 136 Potassium 4.0 Chloride 100 L Carbon Dioxide 28 Anion Gap 8.0 BUN 14 Creatinine 1.0 Estimated GFR (MDRD) 71 L Glucose 122 H Calcium 9.4 Total Bilirubin 0.6 AST 9 L ALT 10 Alkaline Phosphatase 133 H Total Protein 7.8 Albumin 4.3 Globulin 3.5 Albumin/Globulin Ratio 1.2 Lipase < 10 L Urine Color YELLOW Urine Clarity CLEAR Urine pH 7.0 Ur Specific [place] 1.020 Urine Protein 30 H Urine Glucose (UA) NEGATIVE Urine Ketones NEGATIVE Urine Occult Blood NEGATIVE Urine Nitrite NEGATIVE Urine Bilirubin NEGATIVE Urine Urobilinogen 0.2 (NORMAL) Ur Leukocyte Esterase NEGATIVE Urine RBC 0-5 Urine WBC 0-3 Ur Squamous Epith Cells RARE Squamous Urine Bacteria Rare Ur Microscopic Review INDICATED Urine Culture Comments NOT INDICATED Rads (name of study) CT abdomen pelvis: Relevant Findings:: Final report received PD Medical Decision Making ED course Complexity details: reviewed results, re-evaluated patient, considered differential and d/w patient ED course: 84-year-old male with a history of B-cell lymphoma, CABG and small bowel obstruction in the past presents with abdominal pain and vomiting. Found to have another small bowel obstruction. NG tube was placed. Chest x-ray performed to confirm NG tube placement. Discussed the case with Dr. Piper, general surgery on-call who will follow along as an inpatient. Also discussed the case with the hospitalist, KATRIN Arzate who accepts. Patient's oral anticoagulation will be held. Will be kept n.p.o. and maintained on IV fluids. This document was made in part using voice recognition software. While efforts are made to proofread this document, sound alike and grammatical errors may occur. Discharge Plan Discharge Patient Disposition: 66 [facility] DC/Xfer Condition: Stable Clinical Impression: SBO (small bowel obstruction) Interventions: ED Admission Assessment Last Done: 07/11/24 21:19
[2024-07-11] MEDS: SODIUM CHLORIDE 0.9% 1,000 ML IV STA ×2 (18:55→20:44)
[2024-07-11] MEDS: ONDANSETRON 4 MG/2 ML VIAL IVP STA (18:55)
[2024-07-11] MEDS ORDERED: iohexoL-300 100 ML VIAL ONE (18:56)
[2024-07-11 19:24] LABS: BILIRUBIN,URINE NEGATIVE (NEGATIVE); GLUCOSE, URINE (UA) NEGATIVE (NEGATIVE); KETONES,URINE (UA) NEGATIVE (NEGATIVE); LEUKOCYTE ESTERASE, URINE NEGATIVE (NEGATIVE); NITRITE,URINE NEGATIVE (NEGATIVE); OCCULT BLOOD,URINE NEGATIVE (NEGATIVE); PROTEIN,URINE 30 mg/dL (NEGATIVE); UROBILINOGEN,URINE 0.2 (NORMAL) E.U./dL (NORMAL)
[2024-07-11 19:26] LABS: BACTERIA,URINE Rare /HPF (None Seen); CLARITY,URINE CLEAR (CLEAR); RBC,URINE 0-5 /HPF (0-5); SQUAMOUS EPITHELIAL CELL,UR RARE Squamous (<= Few); WBC,URINE 0-3 /HPF (0-3)
[2024-07-11] MEDS: iohexoL-300 100 ML VIAL IVP ONE (19:28)
--- NOTE | 2024-07-11 19:51 | CT Report ---
PROCEDURE: CT Abdomen/Pelvis W INDICATIONS: diffuse abd pain, vomiting CONTRAST: 100 ML OMNI TECHNIQUE: After the administration of intravenous contrast, a CT scan of the abdomen and pelvis was performed. Images were recorded and evaluated at appropriate window settings. Reformats: coronal and sagittal. F or radiation dose reduction, the following was used: automated exposure control, adjustment of mA and /or kV according to patient size. COMPARISON: 06/04. FINDINGS: Image quality: Diagnostic. Lower chest: Bibasilar scarring/atelectasis is seen. Heart size is enlarged, no pericardial effusion. Small hiatal hernia.. Liver: No solid mass. Gallbladder: No radiopaque stones or wall thickening. Biliary tree: No intrahepatic or extrahepatic dilation, accounting for age. Spleen: No splenomegaly. Pancreas: No pancreatic ductal dilation. Adrenals: No adrenal nodule. Kidneys and ureters: No hydronephrosis. No renal cystic lesion which requires follow up. No solid mas s. Stomach, bowel and peritoneum: Fluid distended stomach and small bowel loops are noted with a few air -fluid levels. There is abrupt caliber change involving distal small bowel loop in anterior midabdome n deep to the umbilicus best seen on series 2 image 85 and series 4 image 22. More distal small bowel loops are decompressed. No significant small bowel or colon wall thickening is seen. There is sigmoi d diverticulosis with significant proximal to mid sigmoid colon wall thickening. No significant surro unding fat stranding is seen. Finding likely represent sequela from prior episodes of diverticulitis. No discrete drainable abscess collection is noted. No free fluid of free air. Lymph nodes: No central or retroperitoneal adenopathy. Vessels: No infrarenal aortic aneurysm. Patent portal vein. PELVIS Reproductive organs: Unremarkable. Bladder: No abnormal wall thickening. Pelvic lymph nodes: No pelvic adenopathy by size criteria. Bones: No aggressive osseous abnormality. Other: No significant ventral or inguinal hernia. IMPRESSION: 1. Finding is suggestive of high-grade distal small bowel obstruction with zone of transition involvi ng distal ileum in midline anterior lower abdomen as above. 2. Thickened proximal to mid sigmoid colon and sigmoid diverticulosis likely represent sequela from p rior episodes of diverticulitis. Superimposed acute diverticulitis cannot be entirely excluded. No ab scess collection. No free fluid of free air. 3. Bibasilar scarring/atelectasis. Cardiomegaly and small hiatal hernia. Reviewed by: Chris Mar MD on 07/11/2024 7:50 PM PDT Approved by: Chris Mar MD on 07/11/2024 7:50 PM PDT Station ID: [id number]
--- OUTSIDE RECORDS SUMMARY | 2024-07-11 20:32 | EXTERNAL MEDICAL SUMMARY RPT | Continuity of Care Document ---
Author Organization [place] Address [address] [address] Phone Problems date description facility 2024-04-12 12:17 Solitary pulmonary nodule [facility] [employer] [facility] 2024-04-12 12:17 Other nonspecific abnormal find ing of lung field [facility] 2024-04-13 00:03 Essential (primary) hypertensio n [facility] 2024-04-13 00:03 Atherosclerotic hear t disease of [place] coronary artery with other forms of angina pectoris [facility] 2024-04-13 00:03 Other forms of dyspnea [facility] 2024-04-16 14:48 Dyspnea, unspecified [facility] 2024-04-16 14:48 Shortness of breath [facility] 2024-04-16 14:48 Edema, unspecified [facility] 2024-04-19 11:54 Procedure and treatm ent not carried out, unspecified reason [facility] 2024-04-26 13:56 Solitary pulmonary nodule [facility] 2024-04-26 13:56 Other nonspecific abnormal find ing of lung field [facility] 2024-04-30 14:40 Type 2 diabetes mellitus withou t complications [facility] 2024-04-30 14:40 Essential (primary) hypertensio n [facility] 2024-04-30 14:40 Unspecified atrial fibrillation [facility] 2024-04-30 14:54 Type 2 diabetes mellitus withou t complications [facility] 2024-04-30 14:54 Essential (primary) hypertensio n [employer] [facility] 2024-04-30 14:54 Unspecified atrial fibrillation [facility] 2024-05-08 08:37 Solitary pulmonary nodule [facility] 2024-05-08 08:37 Other nonspecific abnormal find ing of lung field [facility] 2024-05-08 12:27 Diffuse large B-cell lymphoma, lymph nodes of multiple sites [facility] 2024-05-09 00:01 Solitary pulmonary nodule [facility] 2024-05-09 00:01 Other nonspecific abnormal find ing of lung field [facility] 2024-05-09 00:03 Diffuse large B-cell lymphoma, lymph nodes of multiple sites [facility] 2024-05-14 14:12 Unspecified B-cell l ymphoma, lymph nodes of multiple sites [facility] 2024-05-14 14:12 Non-Hodgkin lymphoma, unspecifi ed, unspecified site [facility] 2024-05-15 09:24 Benign prostatic hyp erplasia without lower urinary tract symptoms [facility] 2024-05-21 11:02 Diffuse large B-cell lymphoma, lymph nodes of multiple sites [facility] 2024-05-21 11:03 Diffuse large B-cell lymphoma, lymph nodes of multiple sites [facility] 2024-05-21 11:03 Nontoxic single thyroid nodule [facility] 2024-05-21 11:03 Benign prostatic hyp erplasia without lower urinary tract symptoms [facility] 2024-05-21 11:03 Solitary pulmonary nodule [facility] 2024-05-21 11:03 Abnormal findings on diagnostic imaging of other parts of digestive tract [facility] 2024-05-21 11:03 Encounter for genera l adult medical examination without abnormal findings [facility] 2024-05-21 11:15 Type 2 diabetes mellitus withou t complications [facility] 2024-05-21 11:15 Essential (primary) hypertensio n [employer] 2024-05-21 11:15 Unspecified atrial fibrillation [facility] 2024-05-21 12:32 Type 2 diabetes mellitus withou t complications [facility] 2024-05-21 12:32 Essential (primary) hypertensio n [employer] 2024-05-21 12:32 Unspecified atrial fibrillation [facility] 2024-06-11 16:36 Type 2 diabetes mellitus withou t complications [facility] 2024-06-11 16:36 [facility], [facility] 16:36 Essential (primary) hypertensio n [facility] 2024-06-11 16:36 Atherosclerotic hear t disease of [place] coronary artery with other forms of angina pectoris [facility] 2024-06-11 16:36 Heart failure, unspecified [facility] 2024-06-11 16:36 Gastro-esophageal reflux diseas e without esophagitis [facility] 2024-06-11 16:36 Sciatica, unspecified side [facility] 2024-06-25 09:29 Unspecified B-cell lymphoma, un specified site [facility] 2024-06-25 09:29 Type 2 diabetes mellitus withou t complications [facility] 2024-06-25 09:29 Hyperlipidemia, unspecified [facility] 2024-06-25 09:29 Benign prostatic hyp erplasia without lower urinary tract symptoms [facility] 2024-06-25 09:29 Generalized abdominal pain [facility] 2024-06-25 10:03 Type 2 diabetes mellitus withou t complications [facility] 2024-06-25 10:03 [facility]25 10:03 Unspecified atrial fibrillation [facility] 2024-06-26 00:03 Unspecified B-cell lymphoma, un specified site [facility] 2024-06-26 00:03 Type 2 diabetes mellitus withou t complications [facility] 2024-06-26 00:03 Hyperlipidemia, unspecified [facility] 2024-06-26 00:03 Benign prostatic hyp erplasia without lower urinary tract symptoms [facility] 2024-06-26 00:03 Generalized abdominal pain [facility] 2024-06-26 06:56 Type 2 diabetes mellitus withou t complications [facility] 2024-06-26 06:56 [facility]24-[facility]-26 06:56 Unspecified atrial fibrillation [facility] 2024-06-26 09:09 Unspecified B-cell lymphoma, un specified site [facility] 2024-06-26 09:09 Type 2 diabetes mellitus withou t complications [facility] 2024-06-26 09:09 Hyperlipidemia, unspecified [facility] 2024-06-26 09:09 Benign prostatic hyp erplasia without lower urinary tract symptoms [facility] 2024-06-26 09:09 Generalized abdominal pain [facility] [employer] 2024-06-26 09:24 Benign prostatic hyp erplasia without lower urinary tract symptoms [facility] 2024-06-28 12:18 Chronic systolic (congestive) h eart failure [facility] Results/Labs test date facility value unit notes Result panel 1 LIPASE 2024-04-12 13:22 [email or web address] < 10 u/l As of September 2022 testing method has changed, this may include reference ranges. NUCLEATED RED BLOOD CELLS AUTO 2024-04-12 13:22 [email or web address] 0.0 /100wbc (missing) BASOPHILS # (AUTO) 2024-04-12 13:22 [email or web address] 0.0 10 3/ul (missing) NRBC ABSOLUTE COUNT (AUTO) 2024-04-12 13:22 [email or web address] 0.00 x10 3/ul (missing) EOSINOPHILS # (AUTO) 2024-04-12 13:22 [email or web address] 0.1 10 3/ul (missing) BILIRUBIN,TOTAL 2024-04-12 13:22 [email or web address] 0.6 mg /dl As of September 2022 testing method has changed, this may include reference ranges. MONOCYTES # (AUTO) 2024-04-12 13:22 [facility] 0.7 10 3/ul (missing) LYMPHOCYTES # (AUTO) 2024-04-12 13:22 [facility] 0.7 10 3/ul (missing) CREATININE 2024-04-12 13:22 [email or web address] 1.1 mg/dl As of September 2022 testing method has changed, this may include reference ranges. ALBUMIN/GLOBULIN RATIO 2024-04-12 13:22 [email or web address] 1.3 (missing) (missing) GLOBULIN 2024-04-12 13:22 [email or web address] 1.7 g/dl (missing) ALT ALANINE AMINOTRANSFERASE 2024-04-12 13:22 [email or web address] 10 iu/l As of September 2022 testing method has changed, this may include reference ranges. HGB - HEMOGLOBIN 2024-04-12 13:22 [email or web address] 10.2 g /dl (missing) MEAN PLATELET VOLUME 2024-04-12 13:22 [email or web address] 10.3 fl (missing) WHITE BLOOD COUNT 2024-04-12 13:22 [email or web address] 10.8 x10 3/ul (missing) CHLORIDE 2024-04-12 13:22 [email or web address] 107 mmol/l As of September 2022 testing method has changed, this may include reference ranges. BUN - BLOOD UREA NITROGEN 2024-04-12 13:22 [email or web address] 12 mg/dl As of Sep testing method has changed, this may include reference ranges. TROPONIN I HIGH SENSITIVITY 2024-04-12 13:22 [email or web address] 12.0 ng/l A HIGH SENSITIVITY TROPONIN result of >= 14.9 ng/L for females is considered POSITIVE. A HIGH SENSITIVITY TROPONIN result of >= 19.8 ng/L for males is considered POSITIVE. A HIGH SENSITIVITY TROPONIN result of >= 17.9 ng/L for unspecified is considered POSITIVE. ALKALINE PHOSPHATASE 2024-04-12 13:22 [email or web address] 122 iu/l As of September 2022 testing method has changed, this may include reference ranges. GLUCOSE 2024-04-12 13:22 [email or web address] 125 mg/dl As of September 2022 testing method has changed, this may include reference ranges. SODIUM 2024-04-12 13:22 [email or web address] 142 mmol/l As of September 2022 testing method has changed, this may include reference ranges. RED CELL DISTRIBUTION WIDTH 2024-04-12 13:22 [email or web address] 15.7 % (missing) BNP - B-NATRIURETIC PEPTIDE 2024-04-12 13:22 [email or web address] 1740 pg/ml (missing) ALBUMIN/GLOBULIN RATIO 2024-04-12 13:22 [email or web address] 2.4 (missing) (missing) CARBON DIOXIDE - CO2 2024-04-12 13:22 [email or web address] 26 mmol/l As of September 2022 testing method has changed, this may include reference ranges. MEAN CORPUSCULAR HEMOGLOBIN 2024-04-12 13:22 [email or web address] 26.6 pg (missing) MEAN CORPUSCULAR HGB CONC 2024-04-12 13:22 [email or web address] 29.9 g/dl (missing) GLOBULIN 2024-04-12 13:22 [email or web address] 3.2 g/dl (missing) POTASSIUM 2024-04-12 13:22 [email or web address] 3.5 mmol/l As of September 2022 testing method has changed, this may include reference ranges. RED BLOOD COUNT 2024-04-12 13:22 [email or web address] 3.84 10 6/ul (missing) PLT - PLATELET COUNT 2024-04-12 13:22 [email or web address] 310 10 3/ul (missing) HCT - HEMATOCRIT 2024-04-12 13:22 [email or web address] 34.1 % (missing) ALBUMIN 2024-04-12 13:22 [email or web address] 4.0 g/dl As of September 2022 testing method has changed, this may include reference ranges. TOTAL PROTEIN 2024-04-12 13:22 [email or web address] 5.7 g/dl As of September 2022 testing method has changed, this may include reference ranges. GFR - MDRD 2024-04-12 13:22 [email or web address] 64 (russell wolfe) Social History date description facility
[2024-07-11] MEDS ORDERED: SODIUM CHLORIDE FLUSH 0.9% 10 ML SYRINGE IVP PRN (20:48)
[2024-07-11] MEDS ORDERED: PROCHLORPERAZINE 10 MG/2 ML VIAL IVP PRN (20:48)
[2024-07-11] MEDS ORDERED: METOPROLOL 5 MG/5 ML VIAL IVP PRN (20:48)
--- NOTE | 2024-07-11 20:53 | HISTORY & PHYSICAL EXAMINATION ---
Chief Complaint Chief Complaint Chief Complaint: vomiting History of Present Illness Admitted From Admitted From:: home History Obtained From Records Reviewed: most recent PCP and cardiology notes History obtained from: [facility] History of Present Illness HPI Comment/Other: 84-year-old male who presents to the ED with approximately 18 hours of nausea and vomiting. He states he has had milder symptoms that started about 2 weeks ago with intermittent nausea vomiting and abdominal bloating. However this morning at about 1 AM he woke up with some vomiting and had a bowel movement. He was unable to tolerate p.o. intake for most of the day and then presented to the emergency department this afternoon. His last bowel movement was at 7:00 this morning and he reports that he is occasionally passing flatus since he has been in the emergency department. I arrived in the ED just after NG was placed. several minutes after being hooked to suction, patient reports to me that he is starting to feel better (about 200cc drainage in the canister). He has a past surgical history of appendectomy at the age of 13. Has also had at least 1 episode of diverticulitis treated as an outpatient. He is status post transurethral resection of the prostate for BPH in the past and also has a history of B-cell lymphoma which was treated with chemotherapy. He has a history of coronary artery disease status post two-vessel CABG in April 2022 as well as PCI in May 2021. He has a history of CHF with a reported ejection fraction around 40%. He takes Lasix every day. He also has a history of atrial fibrillation he is on amiodarone and takes Xarelto. He reports that his girlfriend Pam Smith would be his surrogate medical decision maker if he were unable to make his medical decisions. He reports that he would like to be DNR with no CPR but is open to short-term of mechanical ventilation if needed. Meds/Allgy Home Medications Ambulatory Orders Medication Instructions Recorded Confirmed nitroglycerin 0.4 mg sublingual 1 tab sublingual Q5M PRN Chest Pain 06/11/23 06/11/24 tablet acetaminophen 650 mg 650 mg PO Q12H PRN fever or pain 03/12/24 06/11/24 tablet,extended release ipratropium bromide 21 mcg (0.03 2 spray intranasal QID #90 mL 03/12/2406/26/25 %) nasal spray ondansetron 4 mg disintegrating 4 mg translingual Q6H PRN Nausea / 03/12/24 06/11/24 tablet Vomiting atorvastatin 40 mg tablet 40 mg PO QDAY #90 tabs 04/23/24 06/26/24 rivaroxaban 20 mg tablet (Xarelto) 20 mg PO QPM #90 tabs 04/23/24 06/26/24 furosemide 20 mg tablet 20 mg PO QDAY #180 tabs 04/26/24 06/26/24 metoprolol succinate 25 mg capsule 25 mg PO QDAY 05/22/24 06/26/24 sprinkle, ext. release 24 hr lisinopril 5 mg tablet 5 mg PO QDAY #90 tabs 06/11/24 06/26/24 omeprazole magnesium 20 mg 20 mg PO QDAY #90 caps 06/11/24 06/26/24 capsule,delayed release oxybutynin chloride 5 mg 5 mg PO QDAY #30 tabs 06/26/24 06/26/24 tablet,extended release 24 hr Allergies Allergies Allergy/AdvReac Type Severity Reaction Status Date / Time empagliflozin (From AdvReac Nausea Verified 07/11/24 17:40 Jardiance) milk AdvReac gas Verified 07/11/24 17:40 PFSH Active Problems All Active Problems (Updated 07/11/24 @ 21:11 by KATRIN Linares) S/P appendectomy (Acute) SBO (small bowel obstruction) (Acute) Frequent urination (Acute) Sciatica (Acute) Urinary incontinence (Acute) Abnormal computed tomography of sigmoid colon (Acute) Healthcare maintenance (Acute) Right lower lobe pulmonary nodule (Acute) Alcohol abuse (Acute) Hyperlipidemia (Acute) BPH (benign prostatic hyperplasia) (Acute) Macular degeneration (Acute) Gout (Acute) Vitamin D deficiency (Acute) Hx of adenomatous colonic polyps (Acute) Anemia (Acute) Severe malnutrition (Acute) Right thyroid nodule (Acute) Diffuse large B-cell lymphoma of lymph nodes of multiple regions (Acute) Atrial fibrillation (Acute) GERD (gastroesophageal reflux disease) (Acute) DM type 2 (diabetes mellitus, type 2) (Acute) HTN (hypertension) (Acute) Dyspnea on exertion (Acute) CAD (coronary artery disease) (Acute) Medical History Medical History (Updated 07/11/24 @ 21:11 by KATRIN Linares) Congestive heart failure Dizziness Chest pain Local reaction to bee sting Abdominal pain Small bowel obstruction Abnormal CT of the abdomen Diverticulitis Ground glass opacity present on imaging of lung Social History Social History Smoking Status: Former smoker If you are a former smoker, when did you quit? (Date/Year): 1982 Number of Years Smoked: 31 How many cigarettes a day do you smoke? (20 cigarettes=1 Pk): 20 Second hand tobacco smoke exposure: Yes Do you dip or chew tobacco?: No Do you vape?: No Patient requests smoking cessation consult: No Initiate information on smoking cessation: No Living arrangement: At home Living Condition: With spouse/s.o. Support Person: No Relationship: How many days per week?: 4 Level: Independent Do you feel safe in your home environment?: Yes Suffered physical, verbal, emotional, or financial abuse?: No History of Abuse: No ETOH Use: None Frequency: Daily Substance Use: denies use Are you sexually active?: No Retired: Yes Dates of Service: [id number] POLST Patient has POLST: No POLST Status: DNR (No CPR, short course mechanical ventilation OK) Review of Systems Status of ROS: 10 or more systems reviewed and unremarkable except as noted in history and below Constitutional Denies: Fever or Chills Eyes Denies: Change in vision Ears, nose, mouth, and throat Reports: Nasal discharge (clear rhinorrhea); Denies: Tinnitus Cardiovascular Denies: Irregular heart rate, chest pain, palpitations, edema, swelling of feet/ankles, Syncope or shortness of breath with exertion Respiratory Denies: Shortness of breath or Cough Gastrointestinal Reports: Abdominal pain, Nausea, Vomiting, Poor appetite and Belching; Denies: Coffee grounds in vomit, Heartburn, Excessive passing of gas, Rectal bleeding, Change in stool character or Melena Genitourinary Denies: Painful urination Prior Level of Functionality: independent. Sober for 4 years from alcohol. 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 Exam Exam Vital Signs: Vital Signs x48h Temp Pulse Resp BP Pulse Ox 07/11/24 21:19 75 18 152/70 H 98 07/11/24 20:00 75 148/75 H 100 07/11/24 18:46 66 20 135/52 H 100 07/11/24 17:33 36.4 C L 72 18 160/69 H 98 Constitutional normal general appearance and no apparent distress NG with pepto bismol colored drainage HENMT normocephalic, hearing grossly normal bilaterally and oral mucous membranes normal Eyes conjunctivae normal Neck/C-Spine trachea midline Lymph no lymphadenopathy noted Chest inspection of chest normal Respiratory breath sounds equal bilaterally, normal respiratory effort and clear to auscultation bilaterally Cardiovascular normal heart rate noted Gastrointestinal abdomen mildly distended and non tender. not tympanic. no peritoneal signs. 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 CT also cannot rule out diverticulitis, however patient does not have any significant abdominal tenderness on exam. Discussed with Dr Bertrand in the ED and decision was made to admit the patient for supportive care in the face of small bowel obstruction He does have a leukocytosis which could be secondary to vomiting. I will repeat CBC in the a.m. NG tube was placed in the ED. I have reviewed the 1 view abdominal film and the placement is adequate. I have written orders to place the NG to low intermittent suction overnight. Patient will be placed on IV fluids. He will be given pain medicine and antinausea medication as needed. Although the CT does show high-grade obstruction, patient has been passing gas since arrival in the emergency department. Will continue to monitor his NG output. General surgery will consult on the patient and make further recommendations. Would consider gastrografin challenge in the AM, after decompression overnight, if he does not have return of bowel function (2) Congestive heart failure: Plan: Most recent cardiology visit in May 2024 shows a diagnosis of heart failure with reduced ejection fraction. He is on lisinopril 5 mg a day metoprolol succinate 25 mg a day. he has taken himself off Jardiance. he is on furosemide 20 mg a day. Transthoracic echocardiogram August 2023 showed LV systolic function approximately 40%. While he is n.p.o. I will convert his furosemide to 10 mg IV once a day. I will watch for signs of volume overload. Qualifiers: Heart failure type: other Qualified Code(s): I50.9 - Heart failure, unspecified (3) DM type 2 (diabetes mellitus, type 2): Plan: Hemoglobin A1c 6.9% on 06/25/2024. He is not currently on any antidiabetic medications. At his age hemoglobin A1c of 6.9% is adequate control of his diabetes. I will not place him on insulin at this time. Qualifiers: Diabetes mellitus complication status: without complication Diabetes mellitus fci insulin use: unspecified rn long term care insulin use status Q ualified Code(s): E11.9 - Type 2 diabetes mellitus without complications (4) CAD (coronary artery disease): Plan: History of PCI with stent placement x 2 in March 2021 then CABG in May 2022. No chest pain at this time. Qualifiers: Associated angina: with stable angina Coronary Disease-Associated Artery/Lesion type: [place] artery [place] vs. transplanted heart: [place] heart Qualified Code(s): I25.118 - Atherosclerotic heart disease of [place] coronary artery with other forms of angina pectoris (5) Atrial fibrillation: Plan: History of cardioversion to sinus rhythm in September 2022. He is on amiodarone 200 mg by mouth once daily. He is also on metoprolol XL [address] Piper of surgery has requested that Xarelto be held. (6) HTN (hypertension): Plan: On lisinopril 5 mg daily and metoprolol 25 mg a day. Will continue to monitor blood pressures. I have ordered metoprolol 5 mg IV push as needed heart rate greater than 120 while he is NPO. Qualifiers: Hypertension type: primary hypertension Qualified Code(s): I10 - Essential (primary) hypertension Plan I have spent 90 minutes in the care of this patient today. This includes time [id number], review and ordering of diagnostic imaging and laboratory studies and consultation with other providers. Monitoring the patient's signs symptoms, evaluation of medication effectiveness and patient's response to treatment. Lab Results Lab results reviewed: Yes 07/11/24 17:50 07/11/24 17:50 Core Measures Anticipated LOS I expect patient to be DC'd or transferred within 96 hours.: Yes DVT/VTE - Prophylaxis VTE/DVT Device ordered at admit?: Yes VTE/DVT Prophylaxis med ordered at admit?: Yes Not Ordered - Medical Reason: Not indicated (to start in AM. )
[2024-07-11] MEDS ORDERED: PHENOL THROAT SPRAY 177 ML MM PRN (21:21)
[2024-07-11] MEDS: PANTOPRAZOLE 40 MG VIAL IVP SCH (21:33)
[2024-07-11] MEDS: SODIUM CHLORIDE FLUSH 0.9% 10 ML SYRINGE IVP SCH (21:34)
--- NOTE | 2024-07-11 21:36 | XRAY Report ---
PROCEDURE: XR Chest for Line Placement INDICATIONS: ng tube TECHNIQUE: One view of the chest was acquired. COMPARISON: 04/12/2024. FINDINGS: Surgical changes and devices: Median sternotomy wires are seen. NG tube tip is in proximal stomach l umen below the left hemidiaphragm and can be advanced by 5 to 6 cm.. Lungs and pleura: There is blunting of bilateral costophrenic angle suggestive of small bilateral pl eural effusion greater on the right side. No pneumothorax. Mild pulmonary vascular congestion is seen . No consolidation. Mediastinum: Mediastinal contours appear normal. Heart size is enlarged. Bones and chest wall: No suspicious bony lesions. Overlying soft tissues appear unremarkable. IMPRESSION: NG tube tip is in proximal stomach lumen below the left hemidiaphragm, can be advanced by 5 to 10 cm. Cardiomegaly and mild congestion. Small right greater than left bilateral pleural effusion. No defini te focal infiltrate. No pneumothorax. Reviewed by: Chris Evangelista MD on 07/11/2024 9:35 PM PDT Approved by: Chris Evangelista MD on 07/11/2024 9:35 PM PDT Station ID: [id number]
[2024-07-11] MEDS: PHENOL THROAT SPRAY 177 ML MM PRN (21:37)
[2024-07-11] MEDS: SODIUM CHLORIDE 0.9% 1,000 ML IV SCH (22:03)
[2024-07-11] MEDS: LORazepam 2 MG/ML VIAL IVP PRN (23:40)
[2024-07-12] MEDS: ONDANSETRON 4 MG/2 ML VIAL IVP PRN (01:19)
[2024-07-12] MEDS: ACETAMINOPHEN 1,000 MG/100 ML 1,000 MG/100 ML BAG IV PRN (01:22)
[2024-07-12 05:54] LABS: BASOPHILS % (AUTO) 0.1 %; EOSINOPHILS # (AUTO) 0.1 10^3/uL (0.0-0.7); EOSINOPHILS % (AUTO) 0.6 %; HCT - HEMATOCRIT 33.4 % (42.0-52.0); HGB - HEMOGLOBIN 10.4 g/dL (14.0-18.0); LYMPHOCYTES # (AUTO) 0.7 10^3/uL (1.5-3.5); LYMPHOCYTES % (AUTO) 6.7 %; MEAN CORPUSCULAR HEMOGLOBIN 27.6 pg (27.0-31.0); MEAN CORPUSCULAR HGB CONC 31.1 g/dL (32.0-36.0); MEAN CORPUSCULAR VOLUME 88.6 fL (80.0-94.0); MEAN PLATELET VOLUME 11.5 fL (7.4-11.4); MONOCYTES # (AUTO) 0.6 10^3/uL (0.0-1.0); NEUTROPHILS # (AUTO) 8.7 10^3/uL (1.5-6.6); NEUTROPHILS % (AUTO) 86.2 %; PLT - PLATELET COUNT 228 10^3/uL (130-450); RED BLOOD COUNT 3.77 10^6/uL (4.70-6.10); RED CELL DISTRIBUTION WIDTH 17.7 % (12.0-15.0)
[2024-07-12 06:15] LABS: CALCIUM 8.6 mg/dL (8.5-10.3)
[2024-07-12] MEDS: HYDROmorphone 0.5 MG/0.5 ML SYRINGE IVP PRN (08:12)
[2024-07-12] MEDS: ENOXAPARIN 40 MG/0.4 ML SYRINGE SUBQ SCH (09:05)
[2024-07-12] MEDS: FUROSEMIDE 20 MG/2 ML VIAL IVP SCH (09:05)
--- NOTE | 2024-07-12 10:13 | PROVIDER PROGRESS NOTE ---
Subjective Prog Note Date Prog Note Date: 07/12/24 Subjective Subjective: He feels better. less bloated and is passing copious amounts of flatus. He tolerated a small amount of soup and crackers for lunch, no BM and is belching some, but also passing flatus. He has had dilaudid for abdominal cramping less than 2 hours prior to my seeing him. He is eager to return to activities and recovery from his lymphoma. He is doing well for his age. he is able to get up from the ground unassisted, and is working up to splitting wood and using his rowing machine. he wants to get back to his off grid living situation. [place] It sounds as if he is having intermittent obstructive symptoms at home. usually his symptoms go away on their own. Tends to be abdominal cramping and bloating that wakes him at night and lasts several hours, then abates. Current Medications Current Medications Current Medications: Current Medications Generic Name Dose Route Start Last Admin Trade Name Frebarbara PRN Reason Stop Dose Admin Enoxaparin Sodium 40 mg 07/12/24 09:00 07/12/24 09:05 Enoxaparin 40 Mg/0.4 Ml Syringe SUBQ 40 mg DAILY GILMAR Administration Furosemide 10 mg 07/12/24 09:00 07/12/24 09:05 Furosemide 20 Mg/2 Ml Vial IVP 10 mg DAILY GILMAR Administration Hydromorphone HCl 0.5 mg 07/11/24 20:48 07/12/24 08:12 Hydromorphone 0.5 Mg/0.5 Ml Syringe IVP 0.5 mg Q2H PRN Administration Pain 8 to 10 Sodium Chloride 1,000 mls @ 100 mls/hr 07/11/24 21:00 07/12/24 07:36 Normal Saline 0.9% IV 100 mls/hr .Q10H GILMAR Administration Acetaminophen 1,000 mg in 100 mls @ 400 mls/hr 07/11/24 20:48 07/12/24 01:37 Acetaminophen IV Infused Q6HR PRN Infusion Moderate Pain (Level 4-6) Lorazepam 0.5 mg 07/11/24 21:43 07/11/24 23:40 Lorazepam 2 Mg/Ml Vial IVP 0.5 mg Q2H PRN Administration Anxiety Metoprolol Tartrate 5 mg 07/11/24 20:48 Metoprolol 5 Mg/5 Ml Vial IVP Q6H PRN tachycardia >120 >5min Ondansetron HCl 4 mg 07/11/24 20:48 07/12/24 08:13 Ondansetron 4 Mg/2 Ml Vial IVP 4 mg Q6HR PRN Administration Nausea / Vomiting Pantoprazole Sodium 40 mg 07/11/24 20:50 07/12/24 06:07 Pantoprazole 40 Mg Vial IVP 40 mg QDAC GILMAR Administration Phenol/Menthol 5 sprays 07/11/24 20:49 07/11/24 21:37 Phenol Throat [place] 177 Ml MM 5 sprays Q4HR PRN Administration Mouth Sore Pain Phenol/Menthol 2 sprays 07/11/24 21:21 Phenol Throat [place] 177 Ml MM Q2HR PRN Throat Pain Prochlorperazine Edisylate 10 mg 07/11/24 20:48 Prochlorperazine 10 Mg/2 Ml Vial IVP Q6HR PRN Nausea / Vomiting Sodium Chloride 10 ml 07/11/24 20:48 Sodium Chloride Flush 0.9% 10 Ml Syringe IVP PRN PRN NEEDED PER PROVIDER ORDERS Sodium Chloride 10 ml 07/12/24 01:00 07/12/24 09:06 Sodium Chloride Flush 0.9% 10 Ml Syringe IVP Not Given 0100,0900,1700 [facility] Objective Vital Signs/Intake & Output Vital Signs: Vital Signs x48h Temp Pulse Resp BP Pulse Ox 07/12/24 07:45 36.7 C 63 18 141/67 H 97 Intake & Output: Intake & Output 07/09/24 07/10/24 07/11/24 07/12/24 23:59 23:59 23:59 23:59 Intake Total 127 / 127 1023 / 1023 Output Total 600 / 600 750 / 750 Balance -473 / -473 273 / 273 Weight (kg) 94.5 kg Objective General Appearance: positive No acute distress and Alert Eyes Bilateral: positive Normal inspection and Conjunctivae nml Neck: positive Nml inspection and Trachea midline Respiratory: positive No respiratory distress and Breath sounds nml Cardiovascular: positive Regular rate & rhythm Abdomen: positive Non-tender, Nml bowel sounds and No distention Skin: positive Color nml Extremities: positive Non-tender and No pedal edema Neurologic/Psychiatric: positive Oriented x3 Lab Results 07/12/24 05:00 07/12/24 05:00 Other Labs: Lab Results x24hrs 07/12/24 07/11/24 07/11/24 Range/Units 05:00 19:14 17:50 WBC 10.0 14.1 H (4.8-10.8) x10^3/uL RBC 3.77 L 4.19 L (4.70-6.10) 10^6/uL Hgb 10.4 L 11.6 L (14.0-18.0) g/dL Hct 33.4 L 37.2 L (42.0-52.0) % MCV 88.6 88.8 (80.0-94.0) fL MCH 27.6 27.7 (27.0-31.0) pg MCHC 31.1 L 31.2 L (32.0-36.0) g/dL RDW 17.7 H 17.8 H (12.0-15.0) % Plt Count 228 259 (130-450) 10^3/uL MPV 11.5 H 10.5 (7.4-11.4) fL Neut # (Auto) 8.7 H 12.2 H (1.5-6.6) 10^3/uL Lymph # (Auto) 0.7 L 0.9 L (1.5-3.5) 10^3/uL [place] # (Auto) 0.6 0.7 (0.0-1.0) 10^3/uL Eos # (Auto) 0.1 0.1 (0.0-0.7) 10^3/uL Baso # (Auto) 0.0 0.0 (0.0-0.1) 10^3/uL Absolute Nucleated RBC 0.00 0.00 x10^3/uL Nucleated RBC % 0.0 0.0 /100WBC Sodium 138 136 (135-145) mmol/L Potassium 4.0 4.0 (3.5-4.5) mmol/L Chloride 105 100 L (101-111) mmol/L Carbon Dioxide 26 28 (21-32) mmol/L Anion Gap 7.0 8.0 (6-13) BUN 13 14 (6-20) mg/dL Creatinine 1.0 1.0 (0.6-1.3) mg/dL Estimated GFR (MDRD) 71 L 71 L (>89) Glucose 122 H 122 H (74-104) mg/dL Calcium 8.6 9.4 (8.5-10.3) mg/dL Total Bilirubin 0.6 (0.2-1.0) mg/dL AST 9 L (10-42) IU/L ALT 10 (10-60) IU/L Alkaline Phosphatase 133 H (42-121) IU/L Total Protein 7.8 (6.4-8.9) g/dL Albumin 4.3 (3.2-5.5) g/dL Globulin 3.5 (2.1-4.2) g/dL Albumin/Globulin Ratio 1.2 (1.0-2.2) Lipase < 10 L (11-82) U/L Urine Color YELLOW Urine Clarity CLEAR (CLEAR) Urine pH 7.0 (5.0-7.5) PH Ur Specific [place] 1.020 (1.002-1.030) Urine Protein 30 H (NEGATIVE) mg/dL Urine Glucose (UA) NEGATIVE (NEGATIVE) mg/dL Urine Ketones NEGATIVE (NEGATIVE) mg/dL Urine Occult Blood NEGATIVE (NEGATIVE) Urine Nitrite NEGATIVE (NEGATIVE) Urine Bilirubin NEGATIVE (NEGATIVE) Urine Urobilinogen 0.2 (NORMAL) (NORMAL) E.U./dL Ur Leukocyte Esterase NEGATIVE (NEGATIVE) Urine RBC 0-5 (0-5) /HPF Urine WBC 0-3 (0-3) /HPF Ur Squamous Epith Cells RARE Squamous (<= Few) Urine Bacteria Rare (None Seen) /HPF Ur Microscopic Review INDICATED Urine Culture Comments NOT INDICATED Assessment/Plan Problem List (1) SBO (small bowel obstruction): (2) Congestive heart failure: Qualifiers: Heart failure type: other Qualified Code(s): I50.9 - Heart failure, unspecified (3) DM type 2 (diabetes mellitus, type 2): Qualifiers: Diabetes mellitus complication status: without complication Diabetes mellitus correction insulin use: unspecified terminal carman insulin use status Q ualified Code(s): E11.9 - Type 2 diabetes mellitus without complications (4) CAD (coronary artery disease): Qualifiers: Associated angina: with stable angina Coronary Disease-Associated Artery/Lesion type: [place] artery [place] vs. transplanted heart: [place] heart Qualified Code(s): I25.118 - Atherosclerotic heart disease of [place] coronary artery with other forms of angina pectoris (5) Atrial fibrillation: (6) HTN (hypertension): Qualifiers: Hypertension type: primary hypertension Qualified Code(s): I10 - Essential (primary) hypertension
--- NOTE | 2024-07-12 12:30 | PHARMACY PROGRESS NOTE ---
Best Possible Medication History Admit Date and Time: 07/11/242013 Home Medications Medication Instructions Recorded Confirmed Type nitroglycerin 0.4 mg sublingual 1 tab sublingual Q5M PRN Chest Pain 06/11/23 07/12/24 History tablet acetaminophen 650 mg 650 mg PO Q12H PRN fever or pain 03/12/24 07/12/24 History tablet,extended release ipratropium bromide 21 mcg (0.03 2 spray intranasal QID #90 mL 03/12/24 07/12/24 Rx %) nasal spray ondansetron 4 mg disintegrating 4 mg translingual Q6H PRN Nausea / 03/12/24 07/12/24 History tablet Vomiting rivaroxaban 20 mg tablet (Xarelto) 20 mg PO QPM #90 tabs 04/23/24 07/12/24 Rx atorvastatin 40 mg tablet 40 mg PO DAILY 07/12/24 07/12/24 History furosemide 20 mg tablet 20 mg PO DAILY 07/12/24 07/12/24 History lisinopril 5 mg tablet 5 mg PO DAILY 07/12/24 07/12/24 History metoprolol succinate 25 mg 25 mg PO DAILY 07/12/24 07/12/24 History tablet,extended release 24 hr omeprazole magnesium 20 mg 20 mg PO DAILY 07/12/24 07/12/24 History capsule,delayed release oxybutynin chloride 5 mg 5 mg PO DAILY 07/12/24 07/12/24 History tablet,extended release 24 hr Processed by: Pharmacy (Medication Reconciliation completed by Kitchen HelperSandee) Medications reviewed in ED?: No Medication History completed: Yes Patient Interview: Completed Secondary Source(s): Insurance records [facility] Statement: As the person ultimately responsible for medication therapy, providers are able to order a medication from an existing home medication list in [facility] via the "Reconcile Routine" prior to Confirmation of that medication by customer support assistant. Such practice is discouraged except when the physician, in their clinical judgment, deems that a medical need exists for a medication without regard to previous use.
--- NOTE | 2024-07-12 16:44 | Discharge Summary ---
"Discharge Summary Admit Date: 07/11/24 Discharge Date: 07/12/24 Discharging Provider: Josefa Arzate PA-C Primary Care Provider: Brooke Simon PA-C Code Status: Attempt Resuscitation (NO CPR, short course intubation OK) DIAGNOSES Discharge Diagnoses with Status of Each Condition: Small bowel obstruction: Relieved with GI tract decompression and supportive care. Congestive heart failure: Chronic and stable without exacerbation Diabetes mellitus type 2: Hemoglobin A1c 6.9%, not on any medication. Coronary disease: Chronic and stable. Resume home meds on discharge Atrial fibrillation: Chronic and stable. Resume home meds on discharge Hypertension: Chronic and stable. Resume home meds on discharge. HPI History of Present Illness: 84-year-old male who presents to the ED with approximately 18 hours of nausea and vomiting. He states he has had milder symptoms that started about 2 weeks ago with intermittent nausea vomiting and abdominal bloating. However this morning at about 1 AM he woke up with some vomiting and had a bowel movement. He was unable to tolerate p.o. intake for most of the day and then presented to the emergency department this afternoon. His last bowel movement was at 7:00 this morning and he reports that he is occasionally passing flatus since he has been in the emergency department. I arrived in the ED just after NG was placed. several minutes after being hooked to suction, patient reports to me that he is starting to feel better (about 200cc drainage in the canister). He has a past surgical history of appendectomy at the age of 13. Has also had at least 1 episode of diverticulitis treated as an outpatient. He is status post transurethral resection of the prostate for BPH in the past and also has a history of B-cell lymphoma which was treated with chemotherapy. He has a history of coronary artery disease status post two-vessel CABG in April 2022 as well as PCI in May 2021. He has a history of CHF with a reported ejection fraction around 40%. He takes Lasix every day. He also has a history of atrial fibrillation he is on amiodarone and takes Xarelto. He reports that his girlfriend Pam Smith would be his surrogate medical decision maker if he were unable to make his medical decisions. He reports that he would like to be DNR with no CPR but is open to short-term of mechanical ventilation if needed. CONSULTS | PROCEDURES Procedures: CT A/P: 1. Finding is suggestive of high-grade distal small bowel obstruction with zone of transition involving distal ileum in midline anterior lower abdomen as above. 2. Thickened proximal to mid sigmoid colon and sigmoid diverticulosis likely represent sequela from prior episodes of diverticulitis. Superimposed acute diverticulitis cannot be entirely excluded. No abscess collection. No free fluid of free air. 3. Bibasilar scarring/atelectasis. Cardiomegaly and small hiatal hernia HOSPITAL COURSE Hospital Course: 84-year-old male who presented to the hospital with a small bowel obstruction. He was passing flatus in the ED but had findings on CT suggestive of high-grade distal small bowel obstruction. He had a past surgical history of appendectomy. Also had had episodes of diverticulitis. Was admitted to the floor after NG tube was placed in the ED. Only about 400 cc out of the NG tube in total. As stated previously was passing flatus in the ED continued to pass flatus on the floor. Overnight was supported with IV fluids pain medication antinausea medication. In the morning the NG tube was removed patient tolerated a regular diet for lunch and dinner and was discharged to home several hours after eating his evening meal. He at that point had had 2 large bowel movements and was continuing to pass flatus. ED physician had discussed this case with the general surgeon and originally requested general surgery consult, however this was not performed as the patient progressed well with almost immediate return of bowel function after NG decompression. He was discharged to home in stable condition instructed to return for recurrence of symptoms. He was instructed to resume all of his home medications as previously prescribed. ALLERGIES Allergies Allergy/AdvReac Type Severity Reaction Status Date / Time empagliflozin (From AdvReac Nausea Verified 07/11/24 17:40 Jardiance) milk AdvReac gas Verified 07/11/24 17:40 MEDICATIONS Ambulatory Orders Medication Instructions Recorded Confirmed nitroglycerin 0.4 mg sublingual 1 tab sublingual Q5M PRN Chest Pain 06/11/23 07/12/24 tablet acetaminophen 650 mg 650 mg PO Q12H PRN fever or pain 03/12/24 07/12/24 tablet,extended release ipratropium bromide 21 mcg (0.03 2 spray intranasal QID #90 mL 03/12/24 07/12/24 %) nasal spray ondansetron 4 mg disintegrating 4 mg translingual Q6H PRN Nausea / 03/12/24 07/12/24 tablet Vomiting rivaroxaban 20 mg tablet (Xarelto) 20 mg PO QPM #90 tabs 04/23/24 07/12/24 atorvastatin 40 mg tablet 40 mg PO DAILY 07/12/24 07/12/24 furosemide 20 mg tablet 20 mg PO DAILY 07/12/24 07/12/24 lisinopril 5 mg tablet 5 mg PO DAILY 07/12/24 07/12/24 metoprolol succinate 25 mg 25 mg PO DAILY 07/12/24 07/12/24 tablet,extended release 24 hr omeprazole magnesium 20 mg 20 mg PO DAILY 07/12/24 07/12/24 capsule,delayed release oxybutynin chloride 5 mg 5 mg PO DAILY 07/12/24 07/12/24 tablet,extended release 24 hr PHYSICAL EXAM AT DISCHARGE Vital Signs: Vital Signs x48h Temp Pulse Resp BP Pulse Ox 07/12/24 17:05 36.4 C L 65 18 132/60 H 100 Physical Exam Other/Comments: General Appearance: positive No acute distress and Alert Eyes Bilateral: positive Normal inspection and Conjunctivae nml Neck: positive Nml inspection and Trachea midline Respiratory: positive No respiratory distress and Breath sounds nml Cardiovascular: positive Regular rate & rhythm Abdomen: positive Non-tender, Nml bowel sounds and No distention Skin: positive Color nml Extremities: positive Non-tender and No pedal edema Neurologic/Psychiatric: positive Oriented x3 LABS 07/12/24 05:00 07/12/24 05:00 FOLLOW UP Follow Up: PCP 7-10d/ TIME SPENT Time Spent in Discharge (Minutes): 40 Discharge Plan Discharge Patient Disposition: Home, Self Care Condition: Stable Prescriptions: Continued Xarelto 20 mg tablet 20 mg PO QPM Qty: 90 0RF nitroglycerin 0.4 MG tablet, sublingual 1 tab sublingual Q5M PRN (Reason: Chest Pain) metoprolol succinate 25 mg tablet extended release 24 hr 25 mg PO DAILY atorvastatin 40 mg tablet 40 mg PO DAILY oxybutynin chloride 5 mg tablet extended release 24hr 5 mg PO DAILY lisinopril 5 mg tablet 5 mg PO DAILY Rx Instructions: for blood pressure furosemide 20 mg tablet 20 mg PO DAILY Rx Instructions: 1-2 daily in the morning for heart failure and swelling omeprazole magnesium 20 mg capsule,delayed release(DR/EC) 20 mg PO DAILY Rx Instructions: for acid reduction ondansetron 4 mg tablet,disintegrating 4 mg translingual Q6H PRN (Reason: Nausea / Vomiting) Rx Instructions: take 1 tab 3-4 times per day as needed for nausea ipratropium bromide 21 mcg (0.03 %) spray,non-aerosol 2 spray intranasal QID Qty: 90 3RF Rx Instructions: administer into each nostril acetaminophen 650 mg tablet extended release 650 mg PO Q12H PRN (Reason: fever or pain) Activity Restrictions: No Restrictions Diet: Regular Health Concerns: You came into the emergency room because you are having nausea vomiting and cramping abdominal pain. A CAT scan of your abdomen showed that you had a small bowel obstruction. We treated this with supportive care and decompressing your GI tract putting a tube through your nose and into your stomach. After about 12 hours you got better. You subsequently were able to tolerate food and had several bowel movements prior to leaving the hospital. There is nothing that you did or did not do to cause this to happen. This is most likely scar tissue within your abdomen secondary to the appendectomy you had at age 13 as well as a history of having diverticulitis. If you get as sick as you were yesterday you do need to return to the emergency department again. Sometimes patients have recurrence of the symptoms. Sometimes patients need to have surgery for bowel obstruction, however, having surgery to treat a bowel obstruction will not prevent further bowel obstructions. This is because the scar tissue comes back. If you start to have cramping in your abdomen and feeling nauseated and like your abdomen is bloated, I would advise you only to drink liquids, walk and if it gets worse you will need to come to the emergency room. I would not recommend that you try to treat your pain at home with things like alcohol. It usually does not work. While you were here we had a discussion and filled out a form called a POLST. The POLST states that we would not do CPR but you are fine with a short course of intubation if you have some respiratory failure. We talked about your end-of-life care and desires. You want your girlfriend Pam Cao to be your surrogate medical decision maker. This is only if you are unable to make decisions for yourself. I am not changing any of your medications. I want you to go home and resume all of your medications as you were taking them prior to hospital admission. We always recommend that you see you primary care provider in the next 7-10 days. They usually keep some appointments open for hospital followup. Print Language: [place] Patient Instructions: Obstruction Sm Bowel Follow-up Care: Brooke Simon, VALERY [Primary Care Provider] -"
--- NOTE | 2024-07-12 16:44 | ADVANCE CARE PLANNING NOTE ---
Advance Care Planning Planning Encounter Date: 07/12/24 Purpose: determine care goals going forward in this vibrant and active 84 yo. Parties in Attendance: Patient, Josefa Blumjocelynn RASMUSSEN Decisional Capacity of the Patient: alert and oriented. excellent insight into his situation. Diagnosis for Encounter (1) SBO (small bowel obstruction): (2) Congestive heart failure: Qualifiers: Heart failure type: other Qualified Code(s): I50.9 - Heart failure, unspecified (3) DM type 2 (diabetes mellitus, type 2): Qualifiers: Diabetes mellitus complication status: without complication Diabetes mellitus rat exterminator insulin use: unspecified rat exterminator insulin use status Qualified Code(s): E11.9 - Type 2 diabetes mellitus without complications (4) CAD (coronary artery disease): Qualifiers: Associated angina: with stable angina Coronary Disease-Associated Artery/Lesion type: [place] artery [place] vs. transplanted heart: [place] heart Qualified Code(s): I25.118 - Atherosclerotic heart disease of [place] coronary artery with other forms of angina pectoris (5) Atrial fibrillation: (6) HTN (hypertension): Qualifiers: Hypertension type: primary hypertension Qualified Code(s): I10 - Essential (primary) hypertension Encounter Subjective/Patient's Story: 84-year-old male who previous to his B-cell lymphoma diagnosis was living independently in his off grid cabin here in [facility]. Through the course of his illness of the last year he has lost 60 pounds and has become significantly weaker. He has moved into his girlfriend's home [place] to recover. He is getting stronger. And is slowly getting back to his goals of walking, splitting wood and using his rowing machine. When I initially addressed CODE STATUS with him on admission he states v ehemently that he does not want CPR. He states that he would be accepting of a short course of intubation for something like a pneumonia or CHF exacerbation should he need it. He names his girlfriend Pam Garrison is surrogate decision maker. When asked about extra help at home he says he does not need it. He says he has lots of friends. He does not have any relatives. His girlfriend's daughter helps out when needed. He likes to have both breakfast and lunch at [facility]. Has been sober from alcohol for about 4 years now. He has a lot to live for and has a lot of cristina in his life. 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 Objective/Medical Story: He has recovered well from his B-cell lymphoma and treatment. He notes that he is remarkably weaker. He has a history of BPH and is status post TURP. He is status post appendectomy at the age of 13 and has had a history of diverticulitis as well. He has diet-controlled diabetes and atrial fibrillation. He has had 2 cardiac events in the last several years but is recovered well from this. Please see H&P for further details. I am admitting him for a SBO which has resolved perfectly with conservative care. He has definite plans for his burial. he wants to be composted and then for his bones to be buried at the plot he owns at [facility]. Goals of Care: No CPR, short course of intubation is OK. He does not want to be kept alive via extraordinary means. He values his independence. Plan: No CPR,but otherwise full care. Code Status: Attempt Resuscitation (No CPR) Time spent on advance care plannin minutes
[2024-07-12 17:06] VITALS: BP 132/60; TEMP 97.5; O2SAT 100
== END 2024-07-12 18:18 | disposition home or self-care (01) | DRG 390 ==
LOC: ED 17:28 → MS2 20:14
PROVIDERS: ADMIT Physician Assistant Medical; ATTEND Physician Assistant Medical
DX: Z87.891 Personal history of nicotine dependence; Z66 Do not resuscitate; I48.91 Unspecified atrial fibrillation; I50.9 Heart failure, unspecified; K56.609 Unspecified intestinal obstruction, unspecified as to partial versus complete obstruction; Z85.72 Personal history of non-Hodgkin lymphomas; Z95.1 Presence of aortocoronary bypass graft; K57.30 Diverticulosis of large intestine without perforation or abscess without bleeding; E11.9 Type 2 diabetes mellitus without complications; I25.118 Atherosclerotic heart disease of native coronary artery with other forms of angina pectoris; Z79.01 Long term (current) use of anticoagulants; Z87.19 Personal history of other diseases of the digestive system; I11.0 Hypertensive heart disease with heart failure

== ENCOUNTER 2024-10-11 09:24 | Inpatient (IN) ==
--- NOTE | 2024-10-11 09:47 | ED Physician Documentation ---
History of Present Illness Stated complaint Stated Complaint: CONSTIPATION Chief complaint Chief Complaint: Abd Pain History obtained from History obtained from: Patient Additonal information Additional information: This is a very pleasant 84-year-old gentleman with complex medical history including HFrEF, CAD status post CABG in April 2022 (2 vessels) A-fib on amiodarone and Xarelto, appendectomy at age 13 and prostatectomy, lymphoma in remission, type 2 diabetes, hypertension, hypercholesterolemia. He presents with what he thinks is a bowel obstruction. He was hospitalized for same in June of this year and resolved with conservative management. He had a normal bowel movement yesterday morning but none since. He has had some flatus since but it is tapered off. He feels nauseous and tried to vomit without anything coming up. He is having a spasmodic pain every few minutes diffusely in the abdomen. Feels bloated. No fevers. Meds/Allgy Home Medications Ambulatory Orders Medication Instructions Recorded Confirmed nitroglycerin 0.4 mg sublingual 1 tab sublingual Q5M P RN Chest Pain 06/11/23 10/08/24 tablet acetaminophen 650 mg 650 mg PO Q12H PRN fever or pain 03/12/24 10/08/24 tablet,extended release ipratropium bromide 21 mcg (0.03 2 spray intranasal QI D #90 mL 03/12/24 10/08/24 %) nasal spray ondansetron 4 mg disintegrating 4 mg translingual Q6H PRN Nausea / 03/12/24 10/08/24 tablet Vomiting atorvastatin 40 mg tablet 40 mg PO DAILY 07/12/2409/12 lisinopril 5 mg tablet 5 mg PO DAILY 07/12/2410/08 metoprolol succinate 25 mg 25 mg PO DAILY 07/12/24 tablet,extended release 24 hr omeprazole magnesium 20 mg 20 mg PO DAILY 07/12/24 capsule,delayed release furosemide 20 mg tablet See Rx Instructions PO DAILY #180 08/16/24 10/08/24 tabs oxybutynin chloride 5 mg 5 mg PO DAILY #90 tabs 10/0810/08/24 tablet,extended release 24 hr rivaroxaban 20 mg tablet (Xarelto) 20 mg PO QPM #90 ta bs 07/28/25 07/28/25 Allergies Allergies Allergy/AdvReac Type Severity Reaction Status Date / Time empagliflozin (From AdvReac Nausea Verified 10/11/24 09:35 Jardiance) milk AdvReac gas Verified 10/11/24 09:35 PFSH Active Problems All Active Problems (Updated 10/11/24 @ 11:28 by Nura Kim MD) Small bowel obstruction (Acute) Lumbar radiculopathy (Acute) S/P appendectomy (Acute) Frequent urination (Acute) Sciatica (Acute) Urinary incontinence (Acute) Abnormal computed tomography of sigmoid colon (Acute) Healthcare maintenance (Acute) Right lower lobe pulmonary nodule (Acute) Alcohol abuse (Acute) Hyperlipidemia (Acute) BPH (benign prostatic hyperplasia) (Acute) Macular degeneration (Acute) Gout (Acute) Vitamin D deficiency (Acute) Hx of adenomatous colonic polyps (Acute) Anemia (Acute) Severe malnutrition (Acute) Right thyroid nodule (Acute) Diffuse large B-cell lymphoma of lymph nodes of multiple regions (Acute) Atrial fibrillation (Acute) GERD (gastroesophageal reflux disease) (Acute) DM type 2 (diabetes mellitus, type 2) (Acute) HTN (hypertension) (Acute) Dyspnea on exertion (Acute) CAD (coronary artery disease) (Acute) Medical History Medical History (Updated 10/11/24 @ 11:28 by Nura Kim MD) Congestive heart failure Dizziness Chest pain Local reaction to bee sting Abdominal pain Small bowel obstruction Abnormal CT of the abdomen Diverticulitis Ground glass opacity present on imaging of lung Social History Social History Smoking Status: Former smoker If you are a former smoker, when did you quit? (Date/Year): 1982 Number of Years Smoked: 31 How many cigarettes a day do you smoke? (20 cigarettes=1 Pk): 20 Second hand tobacco smoke exposure: Yes Do you dip or chew tobacco?: No Do you vape?: No Patient requests smoking cessation consult: No Initiate information on smoking cessation: No Living arrangement: At home Living Condition: With spouse/s.o. Support Person: No Relationship: How many days per week?: 4 Level: Independent Do you feel safe in your home environment?: Yes Suffered physical, verbal, emotional, or financial abuse?: No History of Abuse: No ETOH Use: None Frequency: Daily Substance Use: denies use Are you sexually active?: No Retired: Yes Dates of Service: [id number] POLST Patient has POLST: No Exam Exam Vital Signs: Vital Signs x48h Temp Pulse Resp BP Pulse Ox 10/11/24 11:28 51 L 18 137/55 H 97 10/11/24 10:41 88 18 138/58 H 99 10/11/24 09:31 36.9 C 66 15 100 Constitutional normal general appearance and no apparent distress Gastrointestinal Absent bowel sounds, no distinct tenderness. Results Vitals Vitals: Vital Signs - 24 hr 10/11/24 09:31 10/11/24 10:41 10/11/24 11:28 Temperature 36.9 C Pulse Rate 66 88 51 L Respiratory Rate 15 18 18 Blood Pressure 138/58 H 137/55 H O2 Saturation 100 99 97 O2 Source Room air Room air Room air Pain Intensity 7 0 Oxygen O2 Source Room air Labs Labs: Laboratory Tests 10/11/24 09:55 WBC 11.8 H RBC 4.20 L Hgb 11.9 L Hct 39.4 L MCV 93.8 MCH 28.3 MCHC 30.2 L RDW 14.3 Plt Count 202 MPV 11.6 H Neut # (Auto) 10.7 H Lymph # (Auto) 0.6 L [place] # (Auto) 0.5 Eos # (Auto) 0.0 Baso # (Auto) 0.0 Absolute Nucleated RBC 0.00 Nucleated RBC % 0.0 Sodium 139 Potassium 4.2 Chloride 104 Carbon Dioxide 26 Anion Gap 9.0 BUN 14 Creatinine 0.9 Estimated GFR (MDRD) 80 L Glucose 141 H Calcium 9.4 Total Bilirubin 0.5 AST 11 ALT 8 L Alkaline Phosphatase 148 H Total Protein 7.6 Albumin 4.2 Globulin 3.4 Albumin/Globulin Ratio 1.2 Lipase < 10 L Rads (name of study) CT A/P: Relevant Findings:: Final report received and EMP independent interpretation of test (SBO) Interpretation: 1. Finding is suggestive of distal small bowel obstruction with zone of transition seen in anterior lower abdomen. Small bowel wall thickening and enhancement concerning for low- grade enteritis. No abscess collection. No free fluid of free air. Colonic diverticulosis without CT evidence of acute diverticulitis. 2. Mild bibasilar dependent atelectasis and bronchiectasis. Cardiomegaly, no pericardial effusion. Small hiatal hernia. PD Medical Decision Making ED course ED course: 84-year-old gentleman presents with signs and symptoms consistent with recurrent bowel obstruction which is present on CT. An NG tube was placed. Lab work notable for mild stable chronic anemia and mild leukocytosis and CMP was unremarkable. Spoke with Dr. Ray who will consult at 10:30 AM and shortly thereafter with Dr. Tristan for admission. The patient and family are counseled as to the diagnosis and need for admission. This document was made in part using voice recognition software, while efforts are made to proofread this document, sound alike an grammatical errors may occur. Discharge Plan Discharge Patient Disposition: 66 [facility] DC/Xfer Condition: Stable Clinical Impression: Small bowel obstruction Prescriptions: No Action furosemide 20 mg tablet See Rx Instructions PO DAILY Qty: 180 1RF Rx Instructions: 1-2 daily in the morning for heart failure and swelling orally daily; nitroglycerin 0.4 MG tablet, sublingual 1 tab sublingual Q5M PRN (Reason: Chest Pain) metoprolol succinate 25 mg tablet extended release 24 hr 25 mg PO DAILY atorvastatin 40 mg tablet 40 mg PO DAILY lisinopril 5 mg tablet 5 mg PO DAILY Rx Instructions: for blood pressure omeprazole magnesium 20 mg capsule,delayed release(DR/EC) 20 mg PO DAILY Rx Instructions: for acid reduction ondansetron 4 mg tablet,disintegrating 4 mg translingual Q6H PRN (Reason: Nausea / Vomiting) Rx Instructions: take 1 tab 3-4 times per day as needed for nausea ipratropium bromide 21 mcg (0.03 %) spray,non-aerosol 2 spray intranasal QID Qty: 90 3RF Rx Instructions: administer into each nostril acetaminophen 650 mg tablet extended release 650 mg PO Q12H PRN (Reason: fever or pain) Xarelto 20 mg tablet 20 mg PO QPM Qty: 90 3RF oxybutynin chloride 5 mg tablet extended release 24hr 5 mg PO DAILY Qty: 90 3RF Print Language: Angolan
[2024-10-11 10:02] LABS: HCT - HEMATOCRIT 39.4 % (42.0-52.0); HGB - HEMOGLOBIN 11.9 g/dL (14.0-18.0); MEAN PLATELET VOLUME 11.6 fL (7.4-11.4); NRBC ABSOLUTE COUNT (AUTO) 0.00 x10^3/uL; NUCLEATED RED BLOOD CELLS AUTO 0.0 /100WBC; PLT - PLATELET COUNT 202 10^3/uL (130-450); RED CELL DISTRIBUTION WIDTH 14.3 % (12.0-15.0)
[2024-10-11] MEDS: MORPHINE 10 MG/ML VIAL IVP STA (10:03)
[2024-10-11] MEDS: ONDANSETRON 4 MG/2 ML VIAL IVP STA (10:04)
[2024-10-11] MEDS: SODIUM CHLORIDE 0.9% 1,000 ML IV STA (10:04)
[2024-10-11 10:16] LABS: ALT ALANINE AMINOTRANSFERASE 8 IU/L (10-60); AST ASPARTATE AMINOTRANSFERASE 11 IU/L (10-42); BUN - BLOOD UREA NITROGEN 14 mg/dL (6-20); CARBON DIOXIDE - CO2 26 mmol/L (21-32); CREATININE 0.9 mg/dL (0.6-1.3); GFR - MDRD 80 (>89)
--- OUTSIDE RECORDS SUMMARY | 2024-10-11 10:25 | EXTERNAL MEDICAL SUMMARY RPT | Continuity of Care Document ---
Author Organization [place] Address 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 [facility] 2024-07-13 10:40 Unspecified atrial fibrillation [facility] 2024-07-13 10:40 Heart failure, unspecified [facility] 2024-07-13 10:40 Unspecified intestin al obstruction, unspecified as to partial versus complete obstruction [facility] 2024-07-13 10:40 Unspecified abdominal pain [facility] 2024-07-13 10:40 Nausea with vomiting, unspecifi ed [facility] 2024-07-18 16:02 Diffuse large B-cell lymphoma, lymph nodes of multiple sites [facility] 2024-07-18 16:02 Gastro-esophageal reflux diseas e without esophagitis [facility] 2024-07-18 16:02 Unspecified intestin al obstruction, unspecified as to partial versus complete obstruction [facility] 2024-07-18 16:02 Generalized abdominal pain [facility] 2024-08-13 07:56 Diffuse large B-cell lymphoma, lymph nodes of multiple sites [facility] 2024-08-13 10:04 Diffuse large B-cell lymphoma, lymph nodes of multiple sites [facility] 2024-08-14 00:03 Diffuse large B-cell lymphoma, lymph nodes of multiple sites [facility] 2024-08-14 08:29 Diffuse large B-cell lymphoma, lymph nodes of multiple sites [facility] 2024-08-14 08:29 Radiculopathy, lumbar region [facility] 2024-08-14 08:30 Diffuse large B-cell lymphoma, lymph nodes of multiple sites [facility] Include [facility] 2024-08-14 08:30 Unspecified B-cell l ymphoma, lymph nodes of multiple sites Counts Include [facility] 2024-08-14 08:30 Non-Hodgkin lymphoma, unspecifi ed, unspecified site [facility] Include [facility] 2024-08-14 08:48 Diffuse large B-cell lymphoma, lymph nodes of multiple sites Counts Include [facility] 2024-08-14 08:48 Radiculopathy, lumbar region [facility] 2024-08-14 14:12 Diffuse large B-cell lymphoma, lymph nodes of multiple sites Counts Include [facility] 2024-08-14 14:12 Radiculopathy, lumbar region [facility] 2024-08-20 10:56 Diffuse large B-cell lymphoma, lymph nodes of multiple sites Counts Include [facility] 2024-08-20 10:56 Radiculopathy, lumbar region [facility] 2024-08-21 14:52 Diffuse large B-cell lymphoma, lymph nodes of multiple sites Counts Include [facility] 2024-08-21 14:52 Radiculopathy, lumbar region [facility] 2024-08-22 00:02 Diffuse large B-cell lymphoma, lymph nodes of multiple sites Counts Include [facility] 2024-08-22 00:02 Radiculopathy, lumbar region [facility] 2024-08-22 08:52 Diffuse large B-cell lymphoma, lymph nodes of multiple sites Counts Include [facility] 2024-08-22 08:52 Nontoxic single thyroid nodule Counts Include [facility] 2024-08-22 08:52 Radiculopathy, lumbar region [facility] 2024-08-22 08:52 Solitary pulmonary nodule [facility] 2024-08-22 08:52 Abnormal findings on diagnostic imaging of other parts of digestive tract Counts Include [facility] 2024-08-22 08:52 Encounter for genera l adult medical examination without abnormal findings Counts Include [facility] 2024-08-22 12:46 Diffuse large B-cell lymphoma, lymph nodes of multiple sites Counts Include [facility] 2024-08-22 12:46 Type 2 diabetes mellitus withou t complications Counts Include [facility] 2024-08-22 12:46 Essential (primary) hypertensio n Counts Include [facility] 2024-08-22 12:46 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 [facility] 2024-08-22 12:46 Unspecified atrial fibrillation Counts Include [facility] 2024-08-22 12:46 Heart failure, unspecified [facility] 2024-08-22 12:46 Unspecified intestin al obstruction, unspecified as to partial versus complete obstruction [facility] 2024-08-22 12:46 Disease of digestive system, un specified [facility] 2024-08-22 12:46 [facility]iculopathy, [facility] 2024-08-22 12:46 Dyspnea, unspecified [facility] 2024-08-22 12:46 Shortness of breath [facility] 2024-08-22 12:46 Unspecified abdominal pain [facility] 2024-08-22 12:46 Nausea with vomiting, unspecifi ed [facility] 2024-08-22 12:46 Edema, [facility] 2024-09-25 13:08 Diffuse large B-cell lymphoma, lymph nodes of multiple sites [facility] 2024-09-25 15:13 Diffuse large B-cell lymphoma, lymph nodes of multiple sites [facility] 2024-09-26 00:04 Diffuse large B-cell lymphoma, lymph nodes of multiple sites [facility] 2024-10-05 10:54 Diffuse large B-cell lymphoma, lymph nodes of multiple sites [facility] 2024-10-05 10:54 Nontoxic single thyroid nodule [facility] 2024-10-05 10:54 Solitary pulmonary nodule [facility] 2024-10-05 10:54 Abnormal findings on diagnostic imaging of other parts of digestive tract [facility] 2024-10-05 10:54 Encounter for genera l adult medical examination without abnormal findings [facility] Results/Labs test date facility value unit notes Result panel 1 NUCLEATED RED BLOOD CELLS AUTO 2024-08-13 08:03 [facility] 0.0 /100wbc (missing) BASOPHILS # (AUTO) 2024-08-13 08:03 [facility] 0.0 10 3/ul (missing) NRBC ABSOLUTE COUNT (AUTO) 2024-08-13 08:03 [facility] 0.00 x10 3/ul (missing) EOSINOPHILS # (AUTO) 2024-08-13 08:03 [facility] 0.3 10 3/ul (missing) BILIRUBIN,TOTAL 2024-08-13 08:03 [facility] 0.4 mg /dl As of September 2022 testing method has changed, this may include reference ranges. MONOCYTES # (AUTO) 2024-08-13 08:03 [facility] 0.6 10 3/ul (missing) LYMPHOCYTES # (AUTO) 2024-08-13 08:03 [facility] 0.7 10 3/ul (missing) PSA TOTAL 2024-08-13 08:03 [facility] 0.784 ng/ml [facility] uses a WHO cutoff value of 2.0 ng/mL. CREATININE 2024-08-13 08:03 [facility] 1.1 mg/dl As of September 2022 testing method has changed, this may include reference ranges. ALBUMIN/GLOBULIN RATIO 2024-08-13 08:03 [facility] 1.2 (missing) (missing) MEAN PLATELET VOLUME 2024-08-13 08:03 [facility] 10.0 fl (missing) CHLORIDE 2024-08-13 08:03 [facility] 104 mmol/l As of September 2022 testing method has changed, this may include reference ranges. HGB - HEMOGLOBIN 2024-08-13 08:03 [facility] 11.0 g /dl (missing) SODIUM 2024-08-13 08:03 [facility] 137 mmol/l (missing) GLUCOSE 2024-08-13 08:03 [facility] 145 mg/dl As of September 2022 testing method has changed, this may include reference ranges. ALKALINE PHOSPHATASE 2024-08-13 08:03 [facility] 146 iu/l As of Sep testing method has changed, this may include reference ranges. RED CELL DISTRIBUTION WIDTH 2024-08-13 08:03 [facility] 15.9 % (mi ssing) BUN - BLOOD UREA NITROGEN 2024-08-13 08:03 [facility] 17 mg/dl As of Sep testing method has changed, this may include reference ranges. CARBON DIOXIDE - CO2 2024-08-13 08:03 [facility] 26 mmol/l As of Sep testing method has changed, this may include reference ranges. PLT - PLATELET COUNT 2024-08-13 08:03 [facility] 267 10 3/ul (missing) MEAN CORPUSCULAR HEMOGLOBIN 2024-08-13 08:03 [facility] 28.4 pg (missing) GLOBULIN 2024-08-13 08:03 [facility] 3.3 g/dl (missing) POTASSIUM 2024-08-13 08:03 [facility] 3.7 mmol/l As of September 2022 testing method has changed, this may include reference ranges. RED BLOOD COUNT 2024-08-13 08:03 [facility] 3.87 10 6/ul (missing) MEAN CORPUSCULAR HGB CONC 2024-08-13 08:03 [facility] 32.1 g/dl (missing) HCT - HEMATOCRIT 2024-08-13 08:03 [facility] 34.3 % (missing) ALBUMIN 2024-08-13 08:03 [facility] 4.1 g/dl As of September 2022 testing method has changed, this may include reference ranges. NEUTROPHILS # (AUTO) 2024-08-13 08:03 [facility] 6.0 10 3/ul (missing) GFR - MDRD 2024-08-13 08:03 [facility] 64 (russell wolfe) Social History date description facility
--- NOTE | 2024-10-11 11:16 | CT Report ---
PROCEDURE: CT Abdomen/Pelvis W INDICATIONS: Abdominal pain, acute, nonlocalized CONTRAST: OMNI 300 100 ML TECHNIQUE: After the administration of intravenous contrast, a CT scan of the abdomen and pelvis was performed. Images were recorded and evaluated at appropriate window settings. Reformats: coronal and sagittal. For radiation dose reduction, the following was used: automated exposure control, adjustment of mA and/or kV according to patient size. COMPARISON: 07/11/2024. FINDINGS: Image quality: Diagnostic. Lower chest: Small patchy groundglass opacities are seen scattered in bilateral lung bases. Dependent atelectasis and mild bronchiectasis in bilateral lower lung zone is seen. Heart size is enlarged, no pericardial effusion. Mediastinal wires are seen. Small hiatal hernia. Liver: No solid mass. Gallbladder: No radiopaque stones or wall thickening. Biliary tree: No intrahepatic or extrahepatic dilation, accounting for age. Spleen: No splenomegaly. Pancreas: No pancreatic ductal dilation. Adrenals: No adrenal nodule. Kidneys and ureters: No hydronephrosis. No renal cystic lesion which requires follow up. No solid mass. Stomach, bowel and peritoneum: Fluid and fecal matter is seen distending distal small bowel loops with likely zone of transition seen in anterior midline of lower abdomen series 2 image 119 and series 4 image 43. Mild distal small bowel wall thickening and adjacent mesenteric fat stranding is seen. No other area of abnormal bowel wall thickening. Sigmoid diverticulosis without CT evidence of acute diverticulitis. No free fluid of free air. Lymph nodes: No central or retroperitoneal adenopathy. Vessels: No infrarenal aortic aneurysm. Patent portal vein. PELVIS Reproductive organs: Unremarkable. Bladder: No abnormal wall thickening. Pelvic lymph nodes: No pelvic adenopathy by size criteria. Bones: No aggressive osseous abnormality. Other: No significant ventral or inguinal hernia. IMPRESSION: 1. Finding is suggestive of distal small bowel obstruction with zone of transition seen in anterior lower abdomen. Small bowel wall thickening and enhancement concerning for low-grade enteritis. No abscess collection. No free fluid of free air. Colonic diverticulosis without CT evidence of acute divert iculitis. 2. Mild bibasilar dependent atelectasis and bronchiectasis. Cardiomegaly, no pericardial effusion. Small hiatal hernia. Reviewed by: Chris Mar MD on 10/11/2024 11:14 AM PDT Approved by: Chris Mar MD on 10/11/2024 11:14 AM PDT Station ID: [id number]
--- NOTE | 2024-10-11 11:46 | HISTORY & PHYSICAL EXAMINATION ---
Chief Complaint Chief Complaint Chief Complaint: abdominal pain History of Present Illness Admitted From Admitted From:: home History Obtained From Records Reviewed: EMR History obtained from: [facility] Exam Limitations: None History of Present Illness HPI Comment/Other: Patient is a 84-year-old male with a history of now recurrent small bowel obstruction, B-cell lymphoma, CAD s/p CABG in 2022 who presents for abdominal pain. Patient states that for the past 48 hours, he has been having abdominal pain. He describes it as sharp, and localized in the epigastric region. He states that this was what happened last time he was admitted to the hospital. He denies any nausea or vomiting. His last bowel movement was yesterday. He states that he is passed gas about 7 times since yesterday. The only abdominal surgery he has had is an appendectomy at the age of 13. He does have an extensive cardiac history including a CABG 2 years ago, and likely would need cardiac clearance for any surgery unless it is emergent. When he presented, his white count was elevated at 11.8. His BMP was largely unremarkable. ALT was within normal limits. ALP was slightly elevated at 148. Bilirubin was within normal limits. Lipase was normal. CT abdomen/pelvis showed distal small bowel obstruction with zone of transition seen in anterior lower abdomen with small bowel thickening, no abscess collection. NG tube was placed, general surgery was consulted, and patient was admitted for small bowel obstruction. Meds/Allgy Home Medications Ambulatory Orders Medication Instructions Recorded Confirmed nitroglycerin 0.4 mg sublingual 1 tab sublingual Q5M P RN Chest Pain 06/11/23 10/08/24 tablet acetaminophen 650 mg 650 mg PO Q12H PRN fever or pain 03/12/24 10/08/24 tablet,extended release ipratropium bromide 21 mcg (0.03 2 spray intranasal QI D #90 mL 03/12/24 10/08/24 %) nasal spray ondansetron 4 mg disintegrating 4 mg translingual Q6H PRN Nausea / 03/12/24 10/08/24 tablet Vomiting atorvastatin 40 mg tablet 40 mg PO DAILY 07/12/24 0711/05 lisinopril 5 mg tablet 5 mg PO DAILY 07/12/2410/08 metoprolol succinate 25 mg 25 mg PO DAILY 07/12/24 tablet,extended release 24 hr omeprazole magnesium 20 mg 20 mg PO DAILY 07/12/24 capsule,delayed release furosemide 20 mg tablet See Rx Instructions PO DAILY #180 08/16/24 10/08/24 tabs oxybutynin chloride 5 mg 5 mg PO DAILY #90 tabs 10/0810/08/24 tablet,extended release 24 hr rivaroxaban 20 mg tablet (Xarelto) 20 mg PO QPM #90 ta bs 10/08/24 10/08/24 Allergies Allergies Allergy/AdvReac Type Severity Reaction Status Date / Time empagliflozin (From AdvReac Nausea Verified 10/11/24 09:35 Jardiance) milk AdvReac gas Verified 10/11/24 09:35 PFSH Active Problems All Active Problems (Updated 10/11/24 @ 14:03 by Theodore Tristan MD) Small bowel obstruction (Acute) Lumbar radiculopathy (Acute) S/P appendectomy (Acute) Frequent urination (Acute) Sciatica (Acute) Urinary incontinence (Acute) Abnormal computed tomography of sigmoid colon (Acute) Healthcare maintenance (Acute) Right lower lobe pulmonary nodule (Acute) Alcohol abuse (Acute) Hyperlipidemia (Acute) BPH (benign prostatic hyperplasia) (Acute) Macular degeneration (Acute) Gout (Acute) Vitamin D deficiency (Acute) Hx of adenomatous colonic polyps (Acute) Anemia (Acute) Severe malnutrition (Acute) Right thyroid nodule (Acute) Diffuse large B-cell lymphoma of lymph nodes of multiple regions (Acute) Atrial fibrillation (Acute) GERD (gastroesophageal reflux disease) (Acute) DM type 2 (diabetes mellitus, type 2) (Acute) HTN (hypertension) (Acute) Dyspnea on exertion (Acute) CAD (coronary artery disease) (Acute) Medical History Medical History (Updated 10/11/24 @ 14:03 by Theodore Tristan MD) Congestive heart failure Dizziness Chest pain Local reaction to bee sting Abdominal pain Small bowel obstruction Abnormal CT of the abdomen Diverticulitis Ground glass opacity present on imaging of lung Social History Social History Smoking Status: Former smoker If you are a former smoker, when did you quit? (Date/Year): 1982 Number of Years Smoked: 31 How many cigarettes a day do you smoke? (20 cigarettes=1 Pk): 20 Second hand tobacco smoke exposure: Yes Do you dip or chew tobacco?: No Do you vape?: No Patient requests smoking cessation consult: No Initiate information on smoking cessation: No Living arrangement: At home Living Condition: With spouse/s.o. Support Person: No Relationship: How many days per week?: 4 Level: Independent Do you feel safe in your home environment?: Yes Suffered physical, verbal, emotional, or financial abuse?: No History of Abuse: No ETOH Use: None Frequency: Daily Substance Use: denies use Are you sexually active?: No Retired: Yes Dates of Service: [id number] POLST Patient has POLST: No Review of Systems Constitutional Denies: Fatigue, Fever or Chills Eyes Denies: Change in vision Ears, nose, mouth, and throat Reports: Nasal discharge (clear rhinorrhea); Denies: Tinnitus or Neck pain Cardiovascular Denies: Irregular heart rate, chest pain, palpitations, edema, swelling of feet/ankles, Syncope or shortness of breath with exertion Respiratory Denies: Shortness of breath, Cough or Wheezing Gastrointestinal Reports: Abdominal pain, Nausea, Poor appetite and Belching; Denies: Vomiting, Coffee grounds in vomit, Heartburn, Excessive passing of gas, Rectal bleeding, Change in stool character or Melena Genitourinary Denies: Painful urination, Flank pain or Incontinence Musculoskeletal Denies: Back pain, Neck pain, Extremity pain, Extremity swelling or Joint pain Integumentary/Breast Denies: Rash, Itching, Dryness, Redness or Skin pain Neurological Denies: Headache, General weakness, Weakness in extremities, Numbness in extremities, Abnormal gait or Dizziness Psychiatric Denies: Depression, Anxiety, Mood swings or Panic attacks Endocrine Denies: Excessive urination, Excessive thirst or Fatigue Hematologic/Lymphatic Denies: Anemia, Easy bruising or Easy bleeding Allergic/Immunologic Denies: Hives, Tongue swelling, Facial swelling or Wheezing Prior Level of Functionality: independent. Sober for 4 years from alcohol. 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 Exam Exam Vital Signs: Vital Signs x48h Temp Pulse Pulse Resp BP BP Pulse Ox 10/11/24 12:16 97.5 F L 58 L 20 143/61 H 100 10/11/24 11:28 51 L 18 137/55 H 97 10/11/24 10:41 88 18 138/58 H 99 10/11/24 09:31 98.4 F 66 15 100 Constitutional normal general appearance and no apparent distress NG tube in place HENMT normocephalic, hearing grossly normal bilaterally and oral mucous membranes normal Eyes PERRL, EOMs intact bilaterally and conjunctivae normal Neck/C-Spine trachea midline Lymph no lymphadenopathy noted Chest inspection of chest normal Respiratory breath sounds equal bilaterally, normal respiratory effort and clear to auscultation bilaterally Cardiovascular normal heart rate noted, regular rhythm noted, no gallop, no rub and no murmur Gastrointestinal abdomen normal to inspection abdomen mildly distended and non tender. not tympanic. no peritoneal signs. 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 Last BM was yesterday. Passing gas occasionally. CT abdomen shows distal small bowel obstruction. Continue IV fluids, n.p.o. status, NG tube in place to low intermittent suction. General surgery consulted, appreciate recommendations. If does not improve, will likely do a Gastrografin challenge in the a.m. (2) DM type 2 (diabetes mellitus, type 2): Plan: Hemoglobin A1c 6.9% on 06/25/2024. He is not currently on any antidiabetic medications. At his age hemoglobin A1c of 6.9% is adequate control of his diabetes. I will not place him on insulin at this time. Qualifiers: Diabetes mellitus complication status: without complication Diabetes mellitus correction insulin use: unspecified emt intermediate insulin use status Q ualified Code(s): E11.9 - Type 2 diabetes mellitus without complications (3) CAD (coronary artery disease): Plan: History of PCI with stent placement x 2 in March 2021 then CABG in May 2022. No chest pain at this time. Qualifiers: Associated angina: with stable angina Coronary Disease-Associated Artery/Lesion type: [place] artery [place] vs. transplanted heart: shawnee heart Qualified Code(s): I25.118 - Atherosclerotic heart disease of [place] coronary artery with other forms of angina pectoris (4) Atrial fibrillation: Plan: History of cardioversion to sinus rhythm in September 2022. He is on amiodarone 200 mg by mouth once daily. He is also on metoprolol XL 25 mg daily. Xarelto held at this in time in case of surgical intervention. Qualifiers: Atrial fibrillation type: unspecified Qualified Code(s): I48.91 - Unspecified atrial fibrillation (5) HTN (hypertension): Plan: On lisinopril 5 mg daily and metoprolol 25 mg a day. Held at this time as patient is NPO. Qualifiers: Hypertension type: primary hypertension Qualified Code(s): I10 - Essential (primary) hypertension Lab Results Lab results reviewed: Yes 10/11/24 09:55 10/11/24 09:55 Core Measures Anticipated LOS I expect patient to be DC'd or transferred within 96 hours.: Yes DVT/VTE - Prophylaxis VTE/DVT Device ordered at admit?: Yes VTE/DVT Prophylaxis med ordered at admit?: No Not Ordered - Medical Reason: Contraindicated
--- OUTSIDE RECORDS SUMMARY | 2024-10-11 11:53 | EXTERNAL MEDICAL SUMMARY RPT | Continuity of Care Document ---
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 [facility] 2024-07-13 10:40 Unspecified atrial fibrillation [facility] 2024-07-13 10:40 Heart failure, unspecified [facility] 2024-07-13 10:40 Unspecified intestin al obstruction, unspecified as to partial versus complete obstruction [facility] 2024-07-13 10:40 Unspecified abdominal pain [facility] 2024-07-13 10:40 Nausea with vomiting, unspecifi ed [facility] 2024-07-18 16:02 Diffuse large B-cell lymphoma, lymph nodes of multiple sites [facility] 2024-07-18 16:02 Gastro-esophageal reflux diseas e without esophagitis [facility] 2024-07-18 16:02 Unspecified intestin al obstruction, unspecified as to partial versus complete obstruction [facility] 2024-07-18 16:02 Generalized abdominal pain [facility] 2024-08-13 07:56 Diffuse large B-cell lymphoma, lymph nodes of multiple sites [facility] 2024-08-13 10:04 Diffuse large B-cell lymphoma, lymph nodes of multiple sites [facility] 2024-08-14 00:03 Diffuse large B-cell lymphoma, lymph nodes of multiple sites [facility] 2024-08-14 08:29 Diffuse large B-cell lymphoma, lymph nodes of multiple sites [facility] 2024-08-14 08:29 Radiculopathy, lumbar region [facility] 2024-08-14 08:30 Diffuse large B-cell lymphoma, lymph nodes of multiple sites [facility] 2024-08-14 08:30 Unspecified B-cell l ymphoma, lymph nodes of multiple sites [facility] 2024-08-14 08:30 Non-Hodgkin lymphoma, unspecifi ed, unspecified site [facility] 2024-08-14 08:48 Diffuse large B-cell lymphoma, lymph nodes of multiple sites [facility] 2024-08-14 08:48 Radiculopathy, lumbar region [facility] 2024-08-14 14:12 Diffuse large B-cell lymphoma, lymph nodes of multiple sites [facility] 2024-08-14 14:12 Radiculopathy, lumbar region [facility] 2024-08-20 10:56 Diffuse large B-cell lymphoma, lymph nodes of multiple sites [facility] 2024-08-20 10:56 Radiculopathy, lumbar region [facility] 2024-08-21 14:52 Diffuse large B-cell lymphoma, lymph nodes of multiple sites [facility] 2024-08-21 14:52 Radiculopathy, lumbar region [facility] 2024-08-22 00:02 Diffuse large B-cell lymphoma, lymph nodes of multiple sites [facility] 2024-08-22 00:02 Radiculopathy, lumbar region [facility] 2024-08-22 08:52 Diffuse large B-cell lymphoma, lymph nodes of multiple sites [facility] 2024-08-22 08:52 Nontoxic single thyroid nodule [facility] 2024-08-22 08:52 Radiculopathy, lumbar region [facility] 2024-08-22 08:52 Solitary pulmonary nodule [facility] 2024-08-22 08:52 Abnormal findings on diagnostic imaging of other parts of digestive tract [facility] 2024-08-22 08:52 Encounter for genera l adult medical examination without abnormal findings [facility] 2024-08-22 12:46 Diffuse large B-cell lymphoma, lymph nodes of multiple sites [facility] 2024-08-22 12:46 Type 2 diabetes mellitus withou t complications [facility] 2024-08-22 12:46 Essential (primary) hypertensio n [facility] 2024-08-22 12:46 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 [facility] 2024-[facility]-22 12:46 Unspecified atrial fibrillation [facility] 2024-08-22 12:46 Heart failure, unspecified [facility] 2024-08-22 12:46 Unspecified intestin al obstruction, unspecified as to partial versus complete obstruction [facility] 2024-08-22 12:46 Disease of digestive system, un specified [facility] 2024-08-22 12:46 Radiculopathy, [facility] 2024-08-22 12:46 Dyspnea, unspecified [facility] 2024-08-22 12:46 Shortness of breath [facility] 2024-08-22 12:46 Unspecified abdominal pain [facility] 2024-08-22 12:46 Nausea with vomiting, unspecifi ed [facility] 2024-08-22 12:46 Edema, [facility]24-[facility] 13:08 Diffuse large B-cell lymphoma, lymph nodes of multiple sites [facility] 2024-09-25 15:13 Diffuse large B-cell lymphoma, lymph nodes of multiple sites [facility] 2024-09-26 00:04 Diffuse large B-cell lymphoma, lymph nodes of multiple sites [facility] 2024-10-05 10:54 Diffuse large B-cell lymphoma, lymph nodes of multiple sites [facility] 2024-10-05 10:54 Nontoxic single thyroid nodule [facility] 2024-10-05 10:54 Solitary pulmonary nodule [facility] 2024-10-05 10:54 Abnormal findings on diagnostic imaging of other parts of digestive tract [facility] 2024-10-05 10:54 Encounter for genera l adult medical examination without abnormal findings [facility] Results/Labs test date facility value unit notes Result panel 1 NUCLEATED RED BLOOD CELLS AUTO 2024-08-13 08:03 [facility] 0.0 /100wbc (missing) BASOPHILS # (AUTO) 2024-08-13 08:03 [email or web address] 0.0 10 3/ul (missing) NRBC ABSOLUTE COUNT (AUTO) 2024-08-13 08:03 [email or web address] 0.00 x10 3/ul (missing) EOSINOPHILS # (AUTO) 2024-08-13 08:03 [facility] 0.3 10 3/ul (missing) BILIRUBIN,TOTAL 2024-08-13 08:03 [email or web address] 0.4 mg /dl As of September 2022 testing method has changed, this may include reference ranges. MONOCYTES # (AUTO) 2024-08-13 08:03 [email or web address] 0.6 10 3/ul (missing) LYMPHOCYTES # (AUTO) 2024-08-13 08:03 [email or web address] 0.7 10 3/ul (missing) PSA TOTAL 2024-08-13 08:03 [email or web address] 0.784 ng/ml [facility] uses a WHO cutoff value of 2.0 ng/mL. CREATININE 2024-08-13 08:03 [email or web address] 1.1 mg/dl As of September 2022 testing method has changed, this may include reference ranges. ALBUMIN/GLOBULIN RATIO 2024-08-13 08:03 [email or web address] 1.2 (missing) (missing) MEAN PLATELET VOLUME 2024-08-13 08:03 [email or web address] 10.0 fl (missing) CHLORIDE 2024-08-13 08:03 [email or web address] 104 mmol/l As of September 2022 testing method has changed, this may include reference ranges. HGB - HEMOGLOBIN 2024-08-13 08:03 [email or web address] 11.0 g /dl (missing) SODIUM 2024-08-13 08:03 [email or web address] 137 mmol/l (missing) GLUCOSE 2024-08-13 08:03 [email or web address] 145 mg/dl As of September 2022 testing method has changed, this may include reference ranges. ALKALINE PHOSPHATASE 2024-08-13 08:03 [email or web address] 146 iu/l As of Sep testing method has changed, this may include reference ranges. RED CELL DISTRIBUTION WIDTH 2024-08-13 08:03 [email or web address] 15.9 % (mi ssing) BUN - BLOOD UREA NITROGEN 2024-08-13 08:03 [email or web address] 17 mg/dl As of Sep testing method has changed, this may include reference ranges. CARBON DIOXIDE - CO2 2024-08-13 08:03 [email or web address] 26 mmol/l As of Sep testing method has changed, this may include reference ranges. PLT - PLATELET COUNT 2024-08-13 08:03 [email or web address] 267 10 3/ul (missing) MEAN CORPUSCULAR HEMOGLOBIN 2024-08-13 08:03 [email or web address] 28.4 pg (missing) GLOBULIN 2024-08-13 08:03 [email or web address] 3.3 g/dl (missing) POTASSIUM 2024-08-13 08:03 [email or web address] 3.7 mmol/l As of September 2022 testing method has changed, this may include reference ranges. RED BLOOD COUNT 2024-08-13 08:03 [email or web address] 3.87 10 6/ul (missing) MEAN CORPUSCULAR HGB CONC 2024-08-13 08:03 [email or web address] 32.1 g/dl (missing) HCT - HEMATOCRIT 2024-08-13 08:03 [email or web address] 34.3 % (missing) ALBUMIN 2024-08-13 08:03 [email or web address] 4.1 g/dl As of September 2022 testing method has changed, this may include reference ranges. NEUTROPHILS # (AUTO) 2024-08-13 08:03 [email or web address] 6.0 10 3/ul (missing) GFR - MDRD 2024-08-13 08:03 [email or web address] 64 (russell wolfe) Social History date description facility
[2024-10-11] MEDS ORDERED: ONDANSETRON 4 MG/2 ML VIAL IVP PRN (12:00)
[2024-10-11] MEDS: LACTATED RINGERS 1,000 ML IV SCH (12:11)
--- NOTE | 2024-10-11 12:47 | XRAY Report ---
PROCEDURE: XR No-Charge 1V Abdomen INDICATIONS: NGT placement TECHNIQUE: 1 view of the abdomen were acquired. COMPARISON: CT of abdomen and pelvis from the same date.. FINDINGS: Surgical changes and devices: NG tube tip is in proximal to mid stomach lumen below the left hemidiaphragm.. Bowel: Air distended bowel loops in mid to right lower abdomen is seen consistent with CT finding of distal small bowel obstruction. No gross free air. Soft tissues: No masses; visualized solid organ contours appear normal in size. No suspicious abdominal calcifications. Bones: No suspicious bony abnormalities. IMPRESSION: NG tube tip is in the region of proximal to mid stomach lumen. No gross pneumoperitoneum. Reviewed by: Chris Mar MD on 10/11/2024 12:45 PM PDT Approved by: Chris Mar MD on 10/11/2024 12:45 PM PDT Station ID: [id number]
[2024-10-11] MEDS: MORPHINE 2 MG/ML CARPUJECT IVP PRN (12:58)
[2024-10-11 13:10] LABS: OCCULT BLOOD,URINE TRACE-INTACT (NEGATIVE)
[2024-10-11 13:11] LABS: GLUCOSE, URINE (UA) NEGATIVE (NEGATIVE); KETONES,URINE (UA) NEGATIVE (NEGATIVE)
[2024-10-11 13:23] LABS: SQUAMOUS EPITHELIAL CELL,UR NONE SEEN (<= Few)
[2024-10-11] MEDS: SODIUM CHLORIDE FLUSH 0.9% 10 ML SYRINGE IVP SCH (15:44)
--- NOTE | 2024-10-11 15:55 | PHARMACY PROGRESS NOTE ---
Best Possible Medication History Admit Date and Time: 10/11/24 [id number] Home Medications Medication Instructions Recorded Confirmed Type nitroglycerin 0.4 mg sublingual 1 tab sublingual Q5M P RN Chest Pain 06/11/23 10/11/24 History tablet acetaminophen 650 mg 650 mg PO Q12H PRN fever or pain 03/12/24 10/11/24 History tablet,extended release ipratropium bromide 21 mcg (0.03 2 spray intranasal QI D #90 mL 03/12/24 10/11/24 Rx %) nasal spray atorvastatin 40 mg tablet 40 mg PO DAILY 07/12/24 07/04/07 History lisinopril 5 mg tablet 5 mg PO DAILY 07/12/2410/11 History metoprolol succinate 25 mg 25 mg PO DAILY 07/12/24 History tablet,extended release 24 hr omeprazole magnesium 20 mg 20 mg PO DAILY 07/12/24 History capsule,delayed release furosemide 20 mg tablet See Rx Instructions PO DAILY #180 08/16/24 10/11/24 Rx tabs rivaroxaban 20 mg tablet (Xarelto) 20 mg PO QPM #90 ta bs 10/08/24 10/11/24 Rx Processed by: Pharmacy Medications reviewed in ED?: No Medication History completed: Yes Patient Interview: Completed [facility] Statement: As the person ultimately responsible for medication therapy, providers are able to order a medication from an existing home medication list in [facility] via the "Reconcile Routine" prior to Confirmation of that medication by administrative support assistant. Such practice is discouraged except when the physician, in their clinical judgment, deems that a medical need exists for a medication without regard to previous use.
[2024-10-11] MEDS: ACETAMINOPHEN 1,000 MG/100 ML 1,000 MG/100 ML BAG IV PRN (17:23)
--- NOTE | 2024-10-11 19:13 | CONSULTATION NOTE ---
Referring Provider Name of Referring Provider:: Dr. Nura Kim Consult Date: 10/11/24 Chief Complaint Chief Complaint Chief Complaint: Possible partial small bowel obstruction History of Present Illness Admitted From Admitted From:: Emergency department History Obtained From Records Reviewed: Yes History obtained from: Chart and patient Exam Limitations: None History of Present Illness HPI Comment/Other: I was asked by Dr. Nura Napoles to evaluate this very pleasant 84-year-old gentleman who has had previous admissions for partial small bowel obstructions that resolved nonoperatively. In this instance it seems like he has a recurrence of this situation. The patient states he recently underwent coronary artery bypass grafting as well as chemotherapy for a B-cell lymphoma he wonders whether or not the chemotherapy may have had a role with his bowel obstruction. He asked whether or not there is anything he can do to help prevent these bowel obstructions and I explained to him that activity helps resolve these obstructions as well as prevent them. He states that Dwight his nurse told him not to move. I explained that we would discuss this with Dwight. Since yesterday at 7 PM he has passed gas a total of 10 times (yes he counted). [facility] Active Problems All Active Problems (Updated 10/11/24 @ 14:03 by Theodore Tristan MD) Small bowel obstruction (Acute) Lumbar radiculopathy (Acute) S/P appendectomy (Acute) Frequent urination (Acute) Sciatica (Acute) Urinary incontinence (Acute) Abnormal computed tomography of sigmoid colon (Acute) Healthcare maintenance (Acute) Right lower lobe pulmonary nodule (Acute) Alcohol abuse (Acute) Hyperlipidemia (Acute) BPH (benign prostatic hyperplasia) (Acute) Macular degeneration (Acute) Gout (Acute) Vitamin D deficiency (Acute) Hx of adenomatous colonic polyps (Acute) Anemia (Acute) Severe malnutrition (Acute) Right thyroid nodule (Acute) Diffuse large B-cell lymphoma of lymph nodes of multiple regions (Acute) Atrial fibrillation (Acute) GERD (gastroesophageal reflux disease) (Acute) DM type 2 (diabetes mellitus, type 2) (Acute) HTN (hypertension) (Acute) Dyspnea on exertion (Acute) CAD (coronary artery disease) (Acute) Medical History Medical History (Updated 10/11/24 @ 14:03 by Theodore Tristan MD) Congestive heart failure Dizziness Chest pain Local reaction to bee sting Abdominal pain Small bowel obstruction Abnormal CT of the abdomen Diverticulitis Ground glass opacity present on imaging of lung Social History Social History Smoking Status: Former smoker If you are a former smoker, when did you quit? (Date/Year): 1982 Number of Years Smoked: 31 How many cigarettes a day do you smoke? (20 cigarettes=1 Pk): 20 Second hand tobacco smoke exposure: Yes Do you dip or chew tobacco?: No Do you vape?: No Patient requests smoking cessation consult: No Initiate information on smoking cessation: No Living arrangement: At home Living Condition: With spouse/s.o. Support Person: No Relationship: How many days per week?: 4 Level: Independent Do you feel safe in your home environment?: Yes Suffered physical, verbal, emotional, or financial abuse?: No History of Abuse: No ETOH Use: None Frequency: Daily Substance Use: denies use Are you sexually active?: No Retired: Yes Dates of Service: 3022-7126 POLST Patient has POLST: No Meds/Allgy Home Medications Ambulatory Orders Medication Instructions Recorded Confirmed nitroglycerin 0.4 mg sublingual 1 tab sublingual Q5M P RN Chest Pain 06/11/23 10/11/24 tablet acetaminophen 650 mg 650 mg PO Q12H PRN fever or pain 03/12/24 10/11/24 tablet,extended release ipratropium bromide 21 mcg (0.03 2 spray intranasal QI D #90 mL 03/12/24 10/11/24 %) nasal spray atorvastatin 40 mg tablet 40 mg PO DAILY 07/12/2409/13 lisinopril 5 mg tablet 5 mg PO DAILY 07/12/2410/11 metoprolol succinate 25 mg 25 mg PO DAILY 07/12/24 tablet,extended release 24 hr omeprazole magnesium 20 mg 20 mg PO DAILY 07/12/24 capsule,delayed release furosemide 20 mg tablet See Rx Instructions PO DAILY #180 08/16/24 10/11/24 tabs rivaroxaban 20 mg tablet (Xarelto) 20 mg PO QPM #90 ta bs 10/08/24 10/11/24 Allergies Allergies Allergy/AdvReac Type Severity Reaction Status Date / Time empagliflozin (From AdvReac Nausea Verified 10/11/24 09:35 Jardiance) milk AdvReac gas Verified 10/11/24 09:35 Results Lab Results Lab results reviewed: Yes 10/11/24 09:55 10/11/24 09:55 Other Lab Results: Lab Results x24hrs 10/11/24 10/11/24 Range/Units 12:50 09:55 WBC 11.8 H (4.8-10.8) x10^3/uL RBC 4.20 L (4.70-6.10) 10^6/uL Hgb 11.9 L (14.0-18.0) g/dL Hct 39.4 L (42.0-52.0) % MCV 93.8 (80.0-94.0) fL MCH 28.3 (27.0-31.0) pg MCHC 30.2 L (32.0-36.0) g/dL RDW 14.3 (12.0-15.0) % Plt Count 202 (130-450) 10^3/uL MPV 11.6 H (7.4-11.4) fL Neut # (Auto) 10.7 H (1.5-6.6) 10^3/uL Lymph # (Auto) 0.6 L (1.5-3.5) 10^3/uL [place] # (Auto) 0.5 (0.0-1.0) 10^3/uL Eos # (Auto) 0.0 (0.0-0.7) 10^3/uL Baso # (Auto) 0.0 (0.0-0.1) 10^3/uL Absolute Nucleated RBC 0.00 x10^3/uL Nucleated RBC % 0.0 /100WBC Sodium 139 (135-145) mmol/L Potassium 4.2 (3.5-4.5) mmol/L Chloride 104 (101-111) mmol/L Carbon Dioxide 26 (21-32) mmol/L Anion Gap 9.0 (6-13) BUN 14 (6-20) mg/dL Creatinine 0.9 (0.6-1.3) mg/dL Estimated GFR (MDRD) 80 L (>89) Glucose 141 H (74-104) mg/dL Calcium 9.4 (8.5-10.3) mg/dL Total Bilirubin 0.5 (0.2-1.0) mg/dL AST 11 (10-42) IU/L ALT 8 L (10-60) IU/L Alkaline Phosphatase 148 H (42-121) IU/L Total Protein 7.6 (6.4-8.9) g/dL Albumin 4.2 (3.2-5.5) g/dL Globulin 3.4 (2.1-4.2) g/dL Albumin/Globulin Ratio 1.2 (1.0-2.2) Lipase < 10 L (11-82) U/L Urine Color YELLOW Urine Clarity CLEAR (CLEAR) Urine pH 6.5 (5.0-7.5) PH Ur Specific [place] 1.010 (1.002-1.030) Urine Protein NEGATIVE (NEGATIVE) mg/dL Urine Glucose (UA) NEGATIVE (NEGATIVE) mg/dL Urine Ketones NEGATIVE (NEGATIVE) mg/dL Urine Occult Blood TRACE-INTACT (NEGATIVE) Urine Nitrite NEGATIVE (NEGATIVE) Urine Bilirubin NEGATIVE (NEGATIVE) Urine Urobilinogen N (NORMAL) E.U./dL Ur Leukocyte Esterase NEGATIVE (NEGATIVE) Urine RBC 0-5 (0-5) /HPF Urine WBC 0-3 (0-3) /HPF Ur Squamous Epith Cells NONE SEEN (<= Few) Urine Bacteria None Seen (None Seen) /HPF Ur Microscopic Review INDICATED Urine Culture Comments NOT INDICATED Review of Systems Status of ROS: 10 or more systems reviewed and unremarkable except as noted in history and below Exam Exam Vital Signs: Vital Signs x48h Temp Pulse Pulse Resp BP BP Pulse Ox 10/11/24 15:45 55 L 10/11/24 15:31 36.5 C 50 L 16 134/59 H 100 10/11/24 12:16 36.4 C L 58 L 20 143/61 H 100 10/11/24 11:28 51 L 18 137/55 H 97 General: 84-year old male, appears stated age, well developed, well nourished HEENT: Normocephalic, atraumatic, extraocular movement intact, mucous membranes pink and moist, sclera anicteric and not injected, lopez-white hair Neck: Supple without pain on palpation, mass or bruit Cardiac: Regular rate and rhythm without rub, gallop, or murmur Chest: Clear to auscultation bilaterally Abdomen: Soft, nontender, slightly decreased bowel sounds, no hepatomegaly, no splenomegaly, no real distention to speak of Genitourinary: Deferred Rectal: Deferred Extremities: No gross neurovascular problem, no clubbing, cyanosis or edema Gait: No gross motor deficit Psychiatric: Alert and oriented to person place and time, asks and answers questions appropriately, mood and affect appropriate Conclusion/Plan Problem List (1) SBO (small bowel obstruction): (2) DM type 2 (diabetes mellitus, type 2): Qualifiers: Diabetes mellitus assisted insulin 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 transplanted heart: [place] heart Associated angina: with stable angina Q ualified Code(s): I25.118 - Atherosclerotic heart disease of [place] coronary artery with other forms of angina pectoris (4) Atrial fibrillation: Qualifiers: Atrial fibrillation type: unspecified Qualified Code(s): I48.91 - Unspecified atrial fibrillation (5) HTN (hypertension): Qualifiers: Hypertension type: primary hypertension Qualified Code(s): I10 - Essential (primary) hypertension Plan The patient has a nasogastric tube decompressing his stomach and feels markedly better. In addition he has been passing gas. I expect that this obstruction is partial in nature. This can be documented with the aid of a Gastrografin follow-through. I explained it is unlikely for his chemotherapy to be the proximate cause of his bowel obstruction. If anything of encouraged him to be active and would like to correct the notion that he should stay in bed. The nasogastric tube can be Temporarily and the IV pole can be brought with the patient wherever he decides to walk. The more walking he does the more likely he is to resolve this obstruction. I explained to him that our role is surgeons here is only if conservative management does not result in improvement. He laughed and stated that he hoped he did not need my services and I left and explained that this is exactly the way he should be thinking. Follow-up by surgery should be on a somewhat peripheral basis checking occasionally to ensure that his bowel obstruction has resolved nonoperatively. I wish to thank Dr. Kim and Dr. Hassan very much for this opportunity to participate in this patient's care. CPT 95045 Lab Results Lab results reviewed: Yes 10/11/24 09:55 10/11/24 09:55
[2024-10-11] MEDS: SODIUM CHLORIDE FLUSH 0.9% 10 ML SYRINGE IVP PRN (21:52)
[2024-10-12 05:11] LABS: HCT - HEMATOCRIT 32.8 % (42.0-52.0); HGB - HEMOGLOBIN 10.0 g/dL (14.0-18.0); MEAN PLATELET VOLUME 10.7 fL (7.4-11.4); PLT - PLATELET COUNT 178.0 10^3/uL (130-450); RED CELL DISTRIBUTION WIDTH 14.2 % (12.0-15.0)
[2024-10-12 05:29] LABS: BUN - BLOOD UREA NITROGEN 13.0 mg/dL (6-20); CARBON DIOXIDE - CO2 29.0 mmol/L (21-32); CREATININE 1.0 mg/dL (0.6-1.3); GFR - MDRD 71.0 (>89)
[2024-10-12] MEDS ORDERED: MAGNESIUM SULFATE 1 GM/2 ML VIAL IVP STA (07:31)
[2024-10-12] MEDS: MAGNESIUM SULFATE 2 GRAM 2 GM/50 ML BAG IV ONE (07:58)
[2024-10-12] MEDS: ENOXAPARIN 40 MG/0.4 ML SYRINGE SUBQ SCH (09:24)
--- NOTE | 2024-10-12 09:37 | PROVIDER PROGRESS NOTE ---
Subjective Subjective Subjective: Patient is feeling much better. He is passing gas. During his Gastrografin study this morning, he had a large bowel movement. He denies any fevers or chills. His appetite is returning. He has no abdominal pain. Current Medications Current Medications Current Medications: Current Medications Generic Name Dose Route Start Last Admin Trade Name Freq PRN Reason Stop Dose Admin Enoxaparin Sodium 40 mg 10/12/24 09:00 10/12/24 09:24 Enoxaparin 40 Mg/0.4 Ml Syringe SUBQ 40 mg DAILY GILMAR Administration Lactated Ringer's 1,000 mls @ 75 mls/hr 10/11/24 12:00 10/12/24 01:12 Lr IV 75 mls/hr .[id number] GILMAR Administration Acetaminophen 1,000 mg in 100 mls @ 400 mls/hr 10/11/24 17:08 10/11/24 17:38 Acetaminophen IV Infused Q6HR PRN Infusion Moderate Pain (Level 4-6) Magnesium Sulfate 2 gm in 50 mls @ 25 mls/hr 10/12/24 08:00 10/12/24 07:58 Magnesium Sulfate IV 10/12/24 09:59 25 mls/hr ONCE ONE Administration Morphine Sulfate 2 mg 10/11/24 12:00 10/12/24 00:16 Morphine 2 Mg/Ml Carpuject IVP 2 mg Q2HR PRN Administration Pain 8 to 10 Ondansetron HCl 4 mg 10/11/24 12:00 Ondansetron 4 Mg/2 Ml Vial IVP Q6HR PRN Nausea / Vomiting Sodium Chloride 10 ml 10/11/24 12:00 10/11/24 21:52 Sodium Chloride Flush 0.9% 10 Ml Syringe IVP 10 ml PRN PRN Administration NEEDED PER PROVIDER ORDERS Sodium Chloride 10 ml 10/11/24 17:00 10/12/24 08:54 Sodium Chloride Flush 0.9% 10 Ml Syringe IVP Not Given 0100,0900,1700 [facility] Objective Vital Signs/Intake & Output Reviewed Vital Signs: Yes Vital Signs: Vital Signs x48h Temp Pulse Resp BP Pulse Ox 10/12/24 08:10 97.9 F 63 16 142/60 H 95 Intake & Output: Intake & Output 10/09/24 10/10/24 10/11/24 10/12/24 23:59 23:59 23:59 23:59 Intake Total 1100 / 1100 976 / 976 Output Total 480 / 480 500 / 500 Balance 620 / 620 476 / 476 Weight (kg) 94 kg Objective General Appearance: positive No acute distress, Alert and Other (NG tube in place to intermittent suction with dark fluid output); negative Anxious Eyes Bilateral: positive Normal inspection, PERRL and EOMI ENT: positive ENT inspection nml, Pharynx nml and No signs of dehydration Neck: positive Nml inspection, Thyroid nml and No JVD Respiratory: positive Chest non-tender, No respiratory distress and Breath sounds nml; negative Wheezes, Rales or Rhonchi Cardiovascular: positive Regular rate & rhythm, No murmur and No gallop; negative Tachycardia or Systolic murmur Abdomen: positive Non-tender, No organomegaly and No distention; negative Guarding or Splenomegaly Back: positive Nml inspection; negative CVA tenderness (R) or CVA tenderness (L) Skin: positive Color nml, No rash, Warm and Dry Extremities: positive Non-tender, Full ROM, Nml appearance and No pedal edema Neurologic/Psychiatric: positive Oriented x3, Motor nml and Mood/affect nml Lab Results 10/12/24 05:04 10/12/24 05:04 Other Labs: Lab Results x24hrs 10/12/24 10/11/24 10/11/24 Range/Units 05:04 12:50 09:55 WBC 7.2 11.8 H (4.8-10.8) x10^3/uL RBC 3.50 L 4.20 L (4.70-6.10) 10^6/uL Hgb 10.0 L 11.9 L (14.0-18.0) g/dL Hct 32.8 L 39.4 L (42.0-52.0) % MCV 93.7 93.8 (80.0-94.0) fL MCH 28.6 28.3 (27.0-31.0) pg MCHC 30.5 L 30.2 L (32.0-36.0) g/dL RDW 14.2 14.3 (12.0-15.0) % Plt Count 178 202 (130-450) 10^3/uL MPV 10.7 11.6 H (7.4-11.4) fL Neut # (Auto) 10.7 H (1.5-6.6) 10^3/uL Lymph # (Auto) 0.6 L (1.5-3.5) 10^3/uL [place] # (Auto) 0.5 (0.0-1.0) 10^3/uL Eos # (Auto) 0.0 (0.0-0.7) 10^3/uL Baso # (Auto) 0.0 (0.0-0.1) 10^3/uL Absolute Nucleated RBC 0.00 x10^3/uL Nucleated RBC % 0.0 /100WBC Sodium 141 139 (135-145) mmol/L Potassium 4.0 4.2 (3.5-4.5) mmol/L Chloride 107 104 (101-111) mmol/L Carbon Dioxide 29 26 (21-32) mmol/L Anion Gap 5.0 L 9.0 (6-13) BUN 13 14 (6-20) mg/dL Creatinine 1.0 0.9 (0.6-1.3) mg/dL Estimated GFR (MDRD) 71 L 80 L (>89) Glucose 100 141 H (74-104) mg/dL Calcium 8.8 9.4 (8.5-10.3) mg/dL Magnesium 1.6 L (1.7-2.3) mg/dL Total Bilirubin 0.5 (0.2-1.0) mg/dL AST 11 (10-42) IU/L ALT 8 L (10-60) IU/L Alkaline Phosphatase 148 H (42-121) IU/L Total Protein 7.6 (6.4-8.9) g/dL Albumin 4.2 (3.2-5.5) g/dL Globulin 3.4 (2.1-4.2) g/dL Albumin/Globulin Ratio 1.2 (1.0-2.2) Lipase < 10 L (11-82) U/L Urine Color YELLOW Urine Clarity CLEAR (CLEAR) Urine pH 6.5 (5.0-7.5) PH Ur Specific [place] 1.010 (1.002-1.030) Urine Protein NEGATIVE (NEGATIVE) mg/dL Urine Glucose (UA) NEGATIVE (NEGATIVE) mg/dL Urine Ketones NEGATIVE (NEGATIVE) mg/dL Urine Occult Blood TRACE-INTACT (NEGATIVE) Urine Nitrite NEGATIVE (NEGATIVE) Urine Bilirubin NEGATIVE (NEGATIVE) Urine Urobilinogen N (NORMAL) E.U./dL Ur Leukocyte Esterase NEGATIVE (NEGATIVE) Urine RBC 0-5 (0-5) /HPF Urine WBC 0-3 (0-3) /HPF Ur Squamous Epith Cells NONE SEEN (<= Few) Urine Bacteria None Seen (None Seen) /HPF Ur Microscopic Review INDICATED Urine Culture Comments NOT INDICATED Assessment/Plan Problem List (1) SBO (small bowel obstruction): Impression: Patient presents with second small bowel obstruction within [address] abdomen shows distal small bowel obstruction. Patient is passing gas. Small bowel follow-through study was ordered, during which, patient had a large bowel movement. Will clamp NG tube, if no distention, will pull it. Will advance diet as tolerated. General Surgery is following, appreciate recommendations. (2) DM type 2 (diabetes mellitus, type 2): Impression: Hemoglobin A1c 6.9% on 06/25/2024. He is not currently on any antidiabetic medications. At his age hemoglobin A1c of 6.9% is adequate control of his diabetes. I will not place him on insulin at this time. Qualifiers: Diabetes mellitus complication status: without complication Diabetes mellitus technician terminal and repeater insulin use: unspecified chcf insulin use status Q ualified Code(s): E11.9 - Type 2 diabetes mellitus without complications (3) CAD (coronary artery disease): Impression: History of PCI with stent placement x 2 in March 2021 then CABG in May 2022. No chest pain at this time. Qualifiers: Associated angina: with stable angina Coronary Disease-Associated Artery/Lesion type: [place] artery [place] vs. transplanted heart: [place] heart Qualified Code(s): I25.118 - Atherosclerotic heart disease of [place] coronary artery with other forms of angina pectoris (4) Atrial fibrillation: Impression: History of cardioversion to sinus rhythm in September 2022. He is on amiodarone 200 mg by mouth once daily. He is also on metoprolol XL 25 mg daily. Xarelto held at this in time in case of surgical intervention. Qualifiers: Atrial fibrillation type: unspecified Qualified Code(s): I48.91 - Unspecified atrial fibrillation (5) HTN (hypertension): Impression: On lisinopril 5 mg daily and metoprolol 25 mg a day. Held at this time as patient is NPO. Qualifiers: Hypertension type: primary hypertension Qualified Code(s): I10 - Essential (primary) hypertension
[2024-10-12] MEDS ORDERED: DIATR MEGLU/DIATRIZOATE SODIUM 120 ML BOTTLE ONE (10:40)
--- NOTE | 2024-10-12 14:06 | XRAY Report ---
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 No suspicious abdominal calcifications. Visualized solid organ contours appear normal. No suspicious bony abnormalities. Small bowel: There is normal transit time of barium through the small bowel. Small bowel loops are of normal caliber throughout. Mucosal folds are smooth and of normal thickness. No strictures, intraluminal masses, or extrinsic mass effects are noted. The terminal ileum is identified, and is normal in morphology. IMPRESSION: Normal contrast physician through the small bowel loops without evidence of bowel obstruction, contrast extravasation or gross pneumoperitoneum. Reviewed by: Chris Evangelista MD on 10/12/2024 2:04 PM PDT Approved by: Chris Evangelista MD on 10/12/2024 2:04 PM PDT Station ID: [id number]
--- NOTE | 2024-10-13 09:30 | Discharge Summary ---
"Discharge Summary Admit Date: 10/11/24 Discharge Date: 10/13/24 Discharging Provider: Dr. Theodore Tristan Primary Care Provider: Brooke Simon Discharge Facility Name: Home DIAGNOSES Admission Diagnoses: Discharge Diagnoses with Status of Each Condition: Small bowel obstructionCT shows distal small bowel obstruction. Initially NG tube was placed, patient was made NPO. Gastrografin study was done. Resulted in passage of gas, as well as multiple bowel movements. Diet advanced only, tolerating full liquids. Advised to continue a soft diet in the outpatient setting. Type 2 diabetes mellituscontinue home medications, close follow-up with PCP. CADcontinue home medications. Atrial fibrillationcontinue home medications including metoprolol and Xarelto. Hypertensioncontinue home medications. HPI History of Present Illness: Patient is a 84-year-old male with a history of now recurrent small bowel obstruction, B-cell lymphoma, CAD s/p CABG in 2022 who presents for abdominal pain. Patient states that for the past 48 hours, he has been having abdominal pain. He describes it as sharp, and localized in the epigastric region. He states that this was what happened last time he was admitted to the hospital. He denies any nausea or vomiting. His last bowel movement was yesterday. He states that he is passed gas about 7 times since yesterday. The only abdominal surgery he has had is an appendectomy at the age of 13. He does have an extensive cardiac history including a CABG 2 years ago, and likely would need cardiac clearance for any surgery unless it is emergent. When he presented, his white count was elevated at 11.8. His BMP was largely unremarkable. ALT was within normal limits. ALP was slightly elevated at 148. Bilirubin was within normal limits. Lipase was normal. CT abdomen/pelvis showed distal small bowel obstruction with zone of transition seen in anterior lower abdomen with small bowel thickening, no abscess collection. NG tube was placed, general surgery was consulted, and patient was admitted for small bowel obstruction. CONSULTS | PROCEDURES Consultations: General surgery Procedures: NG tube placement and removal, CT abdomen, small bowl follow through study HOSPITAL COURSE Hospital Course: Patient is 84-year-old male with history of now recurrent small bowel obstructions, B-cell lymphoma in remission, CAD s/p CABG in 2022 who presented for a small bowel obstruction. Initially, patient was made n.p.o., NG tube was placed to low intermittent suction. Gastrografin study was also completed. He started passing gas, and having bowel movements. His distention and pain improved. His diet was slowly advanced from clear liquids to full liquids, and he was advised to follow a soft diet on discharge until he was feeling better. He also was advised to increase his activity. He was given surgery follow-up information if needed. Overall, patient's obstruction had resolved. He was feeling better. He was discharged home with close follow-up. ALLERGIES Allergies Allergy/AdvReac Type Severity Reaction Status Date / Time empagliflozin (From AdvReac Nausea Verified 10/11/24 09:35 Jardiance) milk AdvReac gas Verified 10/11/24 09:35 MEDICATIONS Ambulatory Orders Medication Instructions Recorded Confirmed nitroglycerin 0.4 mg sublingual 1 tab sublingual Q5M P RN Chest Pain 06/11/23 10/11/24 tablet acetaminophen 650 mg 650 mg PO Q12H PRN fever or pain 03/12/24 10/11/24 tablet,extended release ipratropium bromide 21 mcg (0.03 2 spray intranasal QI D #90 mL 03/12/24 10/11/24 %) nasal spray atorvastatin 40 mg tablet 40 mg PO DAILY 07/12/24 07/04/07 lisinopril 5 mg tablet 5 mg PO DAILY 07/12/2410/11 metoprolol succinate 25 mg 25 mg PO DAILY 07/12/24 tablet,extended release 24 hr omeprazole magnesium 20 mg 20 mg PO DAILY 07/12/24 capsule,delayed release furosemide 20 mg tablet See Rx Instructions PO DAILY #180 08/16/24 10/11/24 tabs rivaroxaban 20 mg tablet (Xarelto) 20 mg PO QPM #90 ta bs 10/08/24 10/11/24 PHYSICAL EXAM AT DISCHARGE Vital Signs: Vital Signs x48h Temp Pulse Resp BP Pulse Ox 10/13/24 10:38 97.7 F 77 18 143/89 H 99 10/13/24 07:36 97.9 F 78 16 151/67 H 96 General Appearance: positive No acute distress, Alert and Other Eyes Bilateral: positive Normal inspection, PERRL and EOMI ENT: positive ENT inspection nml, Pharynx nml and No signs of dehydration Neck: positive Nml inspection, Thyroid nml and No JVD Respiratory: positive Chest non-tender, No respiratory distress and Breath sounds nml; negative Wheezes, Rales or Rhonchi Cardiovascular: positive irregular rate & rhythm, No murmur and No gallop; negative Tachycardia or Systolic murmur Abdomen: positive Non-tender, No organomegaly and No distention; negative Guarding or Splenomegaly Back: positive Nml inspection; negative CVA tenderness (R) or CVA tenderness (L) Skin: positive Color nml, No rash, Warm and Dry Extremities: positive Non-tender, Full ROM, Nml appearance and No pedal edema Neurologic/Psychiatric: positive Oriented x3, Motor nml and Mood/affect nml LABS 10/12/24 05:04 10/12/24 05:04 DIAGNOSTIC IMAGING Diagnostic Imaging Results: Final report reviewed FOLLOW UP Follow Up: Follow up PCP. Follow up surgery PRN. TIME SPENT Time Spent in Discharge (Minutes): 35 Discharge Plan Discharge Patient Disposition: Home, Self Care Condition: Stable Prescriptions: Continued furosemide 20 mg tablet See Rx Instructions PO DAILY Qty: 180 1RF Rx Instructions: 1-2 daily in the morning for heart failure and swelling orally daily; nitroglycerin 0.4 MG tablet, sublingual 1 tab sublingual Q5M PRN (Reason: Chest Pain) metoprolol succinate 25 mg tablet extended release 24 hr 25 mg PO DAILY atorvastatin 40 mg tablet 40 mg PO DAILY lisinopril 5 mg tablet 5 mg PO DAILY Rx Instructions: for blood pressure omeprazole magnesium 20 mg capsule,delayed release(DR/EC) 20 mg PO DAILY Rx Instructions: for acid reduction ipratropium bromide 21 mcg (0.03 %) spray,non-aerosol 2 spray intranasal QID Qty: 90 3RF Rx Instructions: administer into each nostril acetaminophen 650 mg tablet extended release 650 mg PO Q12H PRN (Reason: fever or pain) Xarelto 20 mg tablet 20 mg PO QPM Qty: 90 3RF Activity Restrictions: Activity as Tolerated Diet: Soft Health Concerns: You came in because you are having abdominal pain, and you are very bloated. You were found to have small bowel obstruction on your CAT scan like you have had previously. We allowed your bowel to rest, placed an NG tube to remove excessive gas, and performed a Gastrografin study which was both diagnostic and therapeutic. You are now passing gas, and have had a few bowel movements. We have slowly increased your diet and you are tolerating it well. As we discussed, for the next few days, please adhere to a bland diet and advance slowly as tolerated. Please follow these general measures: How to eat through the day o Eat or drink small amounts every 2 hours. Large meals can cause more discomfort. Try to have 6-7 small meals or snacks spread out through the day. o Cut foods into small pieces. o Chew foods well and eat slowly. What to eat through the day o Follow a Low Fibre Diet or a Liquid Diet. o Avoid any food that is tough or stringy (celery, tough meats). o Well-cooked vegetables, fruit and meat may be tolerated better. Use moist cooking methods (simmer, poach, stew, roast) versus dry cooking methods (grill, broil, barbecue). Sometimes pureed foods may be easier to digest. Aim to consume at least 6 cups of liquid through the day o Sip liquids throughout the day instead of drinking large amounts at one time. o Do your best to drink as much as you can between your meals and snacks (juices, broths and water). o If you are losing weight, choose higher calorie liquids such as milk, yogurt drinks, cream soups or milkshakes. Take a multivitamin and mineral supplement if your diet is very limited. o Ask your dietitian or local pharmacy about the best one for you. Try to take a short walk every day to help your bowels move. Keep a food and symptom journal of the time what you ate and how you felt to help identify patterns of eating or foods that do not agree with you. Take note of the time of day, what you ate and how you felt. [place] with foods and add them into your diet one food at a time and in small amounts. Avoid any foods that make you feel worse. If your symptoms become worse, try drinking only liquids for a few hours to help settle your stomach. When you feel more comfortable, re-introduce low fiber foods back into your diet in small amounts. I have also attached the information of the general surgeon that you saw while you were here in case he wanted to follow-up with them. Thank you for allowing us to take care of you, we are glad you are feeling better. Print Language: Welsh Patient Instructions: Small Bowel Obstruction Stand Alone Forms: PCP List Follow-up Care: Vu Ray MD [Provider Admit Priv/Credential] - Brooke Simon PA-C [Primary Care Provider] - Vitals documented within 30 minutes of discharge?: Yes"
[2024-10-13 10:40] VITALS: BP 143/89; TEMP 97.7; O2SAT 99
== END 2024-10-13 10:53 | disposition home or self-care (01) | DRG 389 ==
LOC: ED 09:24 → MS3 11:48
PROVIDERS: ADMIT Internal Medicine; ATTEND Internal Medicine
DX: K56.609 Unspecified intestinal obstruction, unspecified as to partial versus complete obstruction; Z92.21 Personal history of antineoplastic chemotherapy; D72.829 Elevated white blood cell count, unspecified; I48.91 Unspecified atrial fibrillation; Z95.5 Presence of coronary angioplasty implant and graft; D64.9 Anemia, unspecified; I50.22 Chronic systolic (congestive) heart failure; I11.0 Hypertensive heart disease with heart failure; E11.9 Type 2 diabetes mellitus without complications; Z87.891 Personal history of nicotine dependence; Z79.01 Long term (current) use of anticoagulants; Z85.72 Personal history of non-Hodgkin lymphomas; R74.8 Abnormal levels of other serum enzymes; E78.5 Hyperlipidemia, unspecified; Z95.1 Presence of aortocoronary bypass graft; Z79.899 Other long term (current) drug therapy; I25.118 Atherosclerotic heart disease of native coronary artery with other forms of angina pectoris

== ENCOUNTER 2024-12-17 14:05 | Inpatient (IN) ==
[2024-12-17 14:47] LABS: HCT - HEMATOCRIT 37.9 % (42.0-52.0); HGB - HEMOGLOBIN 11.7 g/dL (14.0-18.0); MEAN PLATELET VOLUME 10.8 fL (7.4-11.4); NRBC ABSOLUTE COUNT (AUTO) 0.00 x10^3/uL; NUCLEATED RED BLOOD CELLS AUTO 0.0 /100WBC; PLT - PLATELET COUNT 232 10^3/uL (130-450); RED CELL DISTRIBUTION WIDTH 15.2 % (12.0-15.0)
--- NOTE | 2024-12-17 14:55 | ED Physician Documentation ---
History of Present Illness Stated complaint Stated Complaint: ABD PX, N Chief complaint Chief Complaint: Abd Pain History obtained from History obtained from: Patient Additonal information Additional information: This is an 84-year-old gentleman with history of HFrEF, coronary disease status post CABG, 2 vessels in April 2022, A-fib on amiodarone and Xarelto, appendectomy at age 13, prostatectomy, lymphoma in remission, type 2 diabetes, hypertension, hypercholesterolemia. He presents with central upper abdominal pain starting at 10 AM today. He has a history of bowel obstructions likely related to adhesions from his prior appendectomy. He has not had nausea or vomiting. He wonders if he might have another bowel obstruction. Meds/Allgy Home Medications Ambulatory Orders Medication Instructions Recorded Confirmed nitroglycerin 0.4 mg sublingual 1 tab sublingual Q5M P RN Chest Pain 06/11/23 12/13/24 tablet ipratropium bromide 21 mcg (0.03 2 spray intranasal QI D #90 mL 03/12/24 12/17/24 %) nasal spray atorvastatin 40 mg tablet 40 mg PO DAILY 07/12/2409/05 metoprolol succinate 25 mg 25 mg PO DAILY 07/12/2409/05 tablet,extended release 24 hr omeprazole magnesium 20 mg 20 mg PO DAILY 07/12/2409/05 capsule,delayed release furosemide 20 mg tablet See Rx Instructions PO DAILY #180 08/16/24 12/17/24 tabs rivaroxaban 20 mg tablet (Xarelto) 20 mg PO QPM #90 ta bs 10/08/24 12/17/24 lisinopril 5 mg tablet 5 mg PO ONCE 10/23/24 peg 3350-electrolytes 236 240 ml PO Q10M #4,000 mL 12/0612/17/24 gram-22.74 gram-6.74 gram-5.86 gram solution (Golytely) Allergies Allergies Allergy/AdvReac Type Severity Reaction Status Date / Time empagliflozin (From AdvReac Nausea Verified 12/13/24 15:02 Jardiance) milk AdvReac gas Verified 12/13/24 15:02 PFSH Active Problems All Active Problems (Updated 12/17/24 @ 16:48 by Nura Kim MD) Small bowel obstruction (Acute) Lumbar radiculopathy (Acute) Frequent urination (Acute) Sciatica (Acute) Urinary incontinence (Acute) Abnormal computed tomography of sigmoid colon (Acute) Healthcare maintenance (Acute) Right lower lobe pulmonary nodule (Acute) Alcohol abuse (Acute) Hyperlipidemia (Acute) BPH (benign prostatic hyperplasia) (Acute) Macular degeneration (Acute) Gout (Acute) Vitamin D deficiency (Acute) Anemia (Acute) Severe malnutrition (Acute) Right thyroid nodule (Acute) Diffuse large B-cell lymphoma of lymph nodes of multiple regions (Acute) Atrial fibrillation (Acute) GERD (gastroesophageal reflux disease) (Acute) DM type 2 (diabetes mellitus, type 2) (Acute) HTN (hypertension) (Acute) Dyspnea on exertion (Acute) CAD (coronary artery disease) (Acute) Medical History Medical History (Updated 12/17/24 @ 16:48 by Nura Kim MD) Peripheral neuropathy Hx of adenomatous colonic polyps Congestive heart failure Dizziness Local reaction to bee sting Small bowel obstruction recurrent: 07/2024, 09/2024 Diverticulitis (~08/2023) perforated with abscess Surgical History Surgical History Hx of colonoscopy (~12/28/16) [facility] Dr. Ha mild diverticulosis . [facility] Dr. Horton 11/08/2012 2 benign TA S/P CABG x 2 (~05/2022) with 2 stents History of transurethral resection of prostate (~2011) Hx of hemorrhoidectomy (~1999) History of tonsillectomy History of appendectomy (~1953) Family History Family History (Updated 11/15/24 @ 10:26 by Fany Cortes MA) Other Family history unknown Social History Social History (Updated 12/17/24 @ 15:12 by Viktoria Vaughan RN) Smoking Status: Former smoker If you are a former smoker, when did you quit? (Date/Year): 1982 Number of Years Smoked: 31 How many cigarettes a day do you smoke? (20 cigarettes=1 Pk): 20 Second hand tobacco smoke exposure: Yes Do you dip or chew tobacco?: No Do you vape?: No Patient requests smoking cessation consult: No Initiate information on smoking cessation: No Living arrangement: At home Living Condition: Alone Support Person: Yes Has a Durable Power of Golf Course Assistant for Health Care?: Yes DPOA on file?: No Has Health Care Directive?: Yes Health Care Directive on file?: No How many days per week?: 4 Level: Independent Do you feel safe in your home environment?: Yes History of physical, verbal, emotional, or financial abuse?: No ETOH Use: None Frequency: Daily Substance Use: denies use Are you sexually active?: No Retired: Yes Dates of Service: 4023-1254 POLST Patient has POLST: No Exam Exam Vital Signs: Vital Signs x48h Temp Pulse Resp BP Pulse Ox 12/17/24 17:05 64 18 173/67 H 99 12/17/24 14:28 36.5 C 67 16 168/84 H 98 Constitutional normal general appearance and no apparent distress Gastrointestinal abdomen normal to inspection, abdomen soft to palpation, nontender to palpation and normoactive bowel sounds Results Vitals Vitals: Vital Signs - 24 hr 12/17/24 14:28 12/17/24 15:51 12/17/24 16:53 Temperature 36.5 C Temperature Source Temporal Artery Scan Pulse Rate 67 Respiratory Rate 16 Blood Pressure 168/84 H O2 Saturation 98 O2 Source Room air Pain Intensity 6 6 6 12/17/24 17:05 Temperature Temperature Source Pulse Rate 64 Respiratory Rate 18 Blood Pressure 173/67 H O2 Saturation 99 O2 Source Room air Pain Intensity 6 Oxygen O2 Source Room air Labs Labs: Laboratory Tests 12/17/24 12/17/24 14:40 14:50 WBC 9.6 RBC 4.12 L Hgb 11.7 L Hct 37.9 L MCV 92.0 MCH 28.4 MCHC 30.9 L RDW 15.2 H Plt Count 232 MPV 10.8 Neut # (Auto) 8.1 H Lymph # (Auto) 0.8 L Beadle # (Auto) 0.6 Eos # (Auto) 0.1 Baso # (Auto) 0.0 Absolute Nucleated RBC 0.00 Nucleated RBC % 0.0 Sodium 139 Potassium 4.2 Chloride 104 Carbon Dioxide 30 Anion Gap 5.0 L BUN 16 Creatinine 1.2 Estimated GFR (MDRD) 58 L Glucose 107 H Calcium 9.5 Total Bilirubin 0.4 AST 10 ALT 9 L Alkaline Phosphatase 150 H Total Protein 7.6 Albumin 4.5 Globulin 3.1 Albumin/Globulin Ratio 1.5 Lipase 10 L Urine Color YELLOW Urine Clarity CLEAR Urine pH 6.0 Ur Specific [place] 1.020 Urine Protein 30 H Urine Glucose (UA) NEGATIVE Urine Ketones NEGATIVE Urine Occult Blood NEGATIVE Urine Nitrite NEGATIVE Urine Bilirubin NEGATIVE Urine Urobilinogen 0.2 (NORMAL) Ur Leukocyte Esterase NEGATIVE Urine RBC None Seen Urine WBC 0-3 Ur Squamous Epith Cells NONE SEEN Urine Bacteria None Seen Ur Microscopic Review INDICATED Urine Culture Comments NOT INDICATED Rads (name of study) CT A/P: Relevant Findings:: Final report received and EMP independent interpretation of test (SBO) PD Medical Decision Making ED course ED course: 84-year-old gentleman with recurrent small bowel obstruction related to adhesions presents with symptoms similar to that. That said on initial evaluation he is really not tender normal bowel sounds in fact potentially hyperactive. That said he went over for labs and a CT and the CT did show demonstrate no small bowel obstruction. I spoke with Dr Raymond for consultation at 4:40 PM who recommends NG tube decompression and defers to medicine for admission and spoke with Dr. Shah for same at 4:48 PM with the understanding there may be a delay to a bed due to hospital capacity. The patient and family are counseled as to the diagnosis and need for admission. This document was made in part using voice recognition software, while efforts are made to proofread this document, sound alike an grammatical errors may occur. We did have some difficulty with getting the NG tube in on x-ray and required some repeat attempts by the RN. First x-ray showed it coiled in the esophagus, second x-ray showed it coiled in the stomach and then back up into the esophagus. Discharge Plan Discharge Patient Disposition: 66 [facility] DC/Xfer Condition: Stable Clinical Impression: Small bowel obstruction Prescriptions: No Action furosemide 20 mg tablet See Rx Instructions PO DAILY Qty: 180 1RF Rx Instructions: 1-2 daily in the morning for heart failure and swelling orally daily; peg 3350-electrolytes [Golytely] 236-22.74-6.74 -5.86 gram recon soln 240 ml PO Q10M Qty: 4000 0RF Rx Instructions: until fecal effluent is clear nitroglycerin 0.4 MG tablet, sublingual 1 tab sublingual Q5M PRN (Reason: Chest Pain) metoprolol succinate 25 mg tablet extended release 24 hr 25 mg PO DAILY atorvastatin 40 mg tablet 40 mg PO DAILY omeprazole magnesium 20 mg capsule,delayed release(DR/EC) 20 mg PO DAILY Rx Instructions: for acid reduction lisinopril 5 mg tablet 5 mg PO ONCE Patient Comments: Updated by [facility] 10/15/24 Rx Instructions: for blood pressure ipratropium bromide 21 mcg (0.03 %) spray,non-aerosol 2 spray intranasal QID Qty: 90 3RF Rx Instructions: administer into each nostril Xarelto 20 mg tablet 20 mg PO QPM Qty: 90 3RF Print Language: Pashto
[2024-12-17 15:15] LABS: ALT ALANINE AMINOTRANSFERASE 9.0 IU/L (10-60); AST ASPARTATE AMINOTRANSFERASE 10.0 IU/L (10-42); BUN - BLOOD UREA NITROGEN 16.0 mg/dL (6-20); CARBON DIOXIDE - CO2 30.0 mmol/L (21-32); CREATININE 1.2 mg/dL (0.6-1.3); GFR - MDRD 58.0 (>89)
[2024-12-17 15:19] LABS: GLUCOSE, URINE (UA) NEGATIVE (NEGATIVE); KETONES,URINE (UA) NEGATIVE (NEGATIVE); OCCULT BLOOD,URINE NEGATIVE (NEGATIVE)
[2024-12-17 15:49] LABS: SQUAMOUS EPITHELIAL CELL,UR NONE SEEN (<= Few)
[2024-12-17] MEDS: HYDROmorphone 1 MG/ML CARPUJECT IVP STA ×3 (15:51→19:46)
--- NOTE | 2024-12-17 16:34 | CT Report ---
PROCEDURE: CT Abdomen/Pelvis W INDICATIONS: IV only, central abdominal pain CONTRAST: 100ml omni 300 TECHNIQUE: After the administration of intravenous contrast, a CT scan of the abdomen and pelvis was performed. Images were recorded and evaluated at appropriate window settings. Reformats: coronal and sagittal. For radiation dose reduction, the following was used: automated exposure control, adjustment of mA and/or kV according to patient size. COMPARISON: CT abdomen pelvis 10/11/2024 FINDINGS: Image quality: Diagnostic. Lower chest: Redemonstration of lower lobe mild bronchiectasis Liver: No solid mass. Gallbladder: No radiopaque stones or wall thickening. Biliary tree: No intrahepatic or extrahepatic dilation, accounting for age. Spleen: No splenomegaly. Pancreas: No pancreatic ductal dilation. Adrenals: No adrenal nodule. Kidneys and ureters: No hydronephrosis. No renal cystic lesion which requires follow up. No solid mass. Stomach, bowel and peritoneum: There is fluid distended and dilated distal small bowel with transition zone seen in the left lower abdomen, for example series 2, image 102. Sigmoid diverticulosis without evidence of acute inflammation. No free fluid or pneumoperitoneum. Lymph nodes: No central or retroperitoneal adenopathy. Vessels: No infrarenal aortic aneurysm. Patent portal vein. Aortobiiliac atherosclerotic calcifications. PELVIS Reproductive organs: Unremarkable. Bladder: No abnormal wall thickening. Pelvic lymph nodes: No pelvic adenopathy by size criteria. Bones: No aggressive osseous abnormality. Other: No significant ventral or inguinal hernia. IMPRESSION: Dilated distal small bowel with transition seen in the left lower abdomen concerning for small bowel obstruction Additional findings as above.. Reviewed by: Licha Lopez MD, PhD on 12/17/2024 4:31 PM PDT Approved by: Licha Lopez MD, PhD on 12/17/2024 4:31 PM PDT Station ID: [id number]
[2024-12-17] MEDS: SODIUM CHLORIDE 0.9% 1,000 ML IV STA (16:51)
[2024-12-17] MEDS: ONDANSETRON 4 MG/2 ML VIAL IVP STA (16:53)
--- NOTE | 2024-12-17 17:53 | CONSULTATION NOTE ---
[facility] Active Problems All Active Problems (Updated 12/17/24 @ 16:48 by Nura Kim MD) Small bowel obstruction (Acute) Lumbar radiculopathy (Acute) Frequent urination (Acute) Sciatica (Acute) Urinary incontinence (Acute) Abnormal computed tomography of sigmoid colon (Acute) Healthcare maintenance (Acute) Right lower lobe pulmonary nodule (Acute) Alcohol abuse (Acute) Hyperlipidemia (Acute) BPH (benign prostatic hyperplasia) (Acute) Macular degeneration (Acute) Gout (Acute) Vitamin D deficiency (Acute) Anemia (Acute) Severe malnutrition (Acute) Right thyroid nodule (Acute) Diffuse large B-cell lymphoma of lymph nodes of multiple regions (Acute) Atrial fibrillation (Acute) GERD (gastroesophageal reflux disease) (Acute) DM type 2 (diabetes mellitus, type 2) (Acute) HTN (hypertension) (Acute) Dyspnea on exertion (Acute) CAD (coronary artery disease) (Acute) Medical History Medical History (Updated 12/17/24 @ 16:48 by Nura Kim MD) Peripheral neuropathy Hx of adenomatous colonic polyps Congestive heart failure Dizziness Local reaction to bee sting Small bowel obstruction recurrent: 07/2024, 09/2024 Diverticulitis (~08/2023) perforated with abscess Surgical History Surgical History Hx of colonoscopy (~12/28/16) [facility] Dr. Ha mild diverticulosis . [facility] Dr. Horton 11/08/2012 2 benign TA S/P CABG x 2 (~05/2022) with 2 stents History of transurethral resection of prostate (~2011) Hx of hemorrhoidectomy (~1999) History of tonsillectomy History of appendectomy (~1953) Family History Family History (Updated 11/15/24 @ 10:26 by Fany Cortes MA) Other Family history unknown Social History Social History (Updated 12/17/24 @ 15:12 by Viktoria Vaughan RN) Smoking Status: Former smoker If you are a former smoker, when did you quit? (Date/Year): 1982 Number of Years Smoked: 31 How many cigarettes a day do you smoke? (20 cigarettes=1 Pk): 20 Second hand tobacco smoke exposure: Yes Do you dip or chew tobacco?: No Do you vape?: No Patient requests smoking cessation consult: No Initiate information on smoking cessation: No Living arrangement: At home Living Condition: Alone Support Person: Yes Has a Durable Power of Skip Miner Blasting for Health Care?: Yes DPOA on file?: No Has Health Care Directive?: Yes Health Care Directive on file?: No How many days per week?: 4 Level: Independent Do you feel safe in your home environment?: Yes History of physical, verbal, emotional, or financial abuse?: No ETOH Use: None Frequency: Daily Substance Use: denies use Are you sexually active?: No Retired: Yes Dates of Service: [id number] POLST Patient has POLST: No Meds/Allgy Home Medications Ambulatory Orders Medication Instructions Recorded Confirmed nitroglycerin 0.4 mg sublingual 1 tab sublingual Q5M P RN Chest Pain 06/11/23 12/13/24 tablet ipratropium bromide 21 mcg (0.03 2 spray intranasal QI D #90 mL 03/12/24 12/17/24 %) nasal spray atorvastatin 40 mg tablet 40 mg PO DAILY 07/12/2409/05 metoprolol succinate 25 mg 25 mg PO DAILY 07/12/2409/05 tablet,extended release 24 hr omeprazole magnesium 20 mg 20 mg PO DAILY 07/12/2409/05 capsule,delayed release furosemide 20 mg tablet See Rx Instructions PO DAILY #180 08/16/24 12/17/24 tabs rivaroxaban 20 mg tablet (Xarelto) 20 mg PO QPM #90 ta bs 10/08/24 12/17/24 lisinopril 5 mg tablet 5 mg PO ONCE 10/23/24 peg 3350-electrolytes 236 240 ml PO Q10M #4,000 mL 12/0612/17/24 gram-22.74 gram-6.74 gram-5.86 gram solution (Golytely) Allergies Allergies Allergy/AdvReac Type Severity Reaction Status Date / Time empagliflozin (From AdvReac Nausea Verified 12/13/24 15:02 Jardiance) milk AdvReac gas Verified 12/13/24 15:02 Results Lab Results 12/17/24 14:40 12/17/24 14:40 Other Lab Results: Lab Results x24hrs 12/17/24 12/17/24 Range/Units 14:50 14:40 WBC 9.6 (4.8-10.8) x10^3/uL RBC 4.12 L (4.70-6.10) 10^6/uL Hgb 11.7 L (14.0-18.0) g/dL Hct 37.9 L (42.0-52.0) % MCV 92.0 (80.0-94.0) fL MCH 28.4 (27.0-31.0) pg MCHC 30.9 L (32.0-36.0) g/dL RDW 15.2 H (12.0-15.0) % Plt Count 232 (130-450) 10^3/uL MPV 10.8 (7.4-11.4) fL Neut # (Auto) 8.1 H (1.5-6.6) 10^3/uL Lymph # (Auto) 0.8 L (1.5-3.5) 10^3/uL [place] # (Auto) 0.6 (0.0-1.0) 10^3/uL Eos # (Auto) 0.1 (0.0-0.7) 10^3/uL Baso # (Auto) 0.0 (0.0-0.1) 10^3/uL Absolute Nucleated RBC 0.00 x10^3/uL Nucleated RBC % 0.0 /100WBC Sodium 139 (135-145) mmol/L Potassium 4.2 (3.5-4.5) mmol/L Chloride 104 (101-111) mmol/L Carbon Dioxide 30 (21-32) mmol/L Anion Gap 5.0 L (6-13) BUN 16 (6-20) mg/dL Creatinine 1.2 (0.6-1.3) mg/dL Estimated GFR (MDRD) 58 L (>89) Glucose 107 H (74-104) mg/dL Calcium 9.5 (8.5-10.3) mg/dL Total Bilirubin 0.4 (0.2-1.0) mg/dL AST 10 (10-42) IU/L ALT 9 L (10-60) IU/L Alkaline Phosphatase 150 H (42-121) IU/L Total Protein 7.6 (6.4-8.9) g/dL Albumin 4.5 (3.2-5.5) g/dL Globulin 3.1 (2.1-4.2) g/dL Albumin/Globulin Ratio 1.5 (1.0-2.2) Lipase 10 L (11-82) U/L Urine Color YELLOW Urine Clarity CLEAR (CLEAR) Urine pH 6.0 (5.0-7.5) PH Ur Specific [place] 1.020 (1.002-1.030) Urine Protein 30 H (NEGATIVE) mg/dL Urine Glucose (UA) NEGATIVE (NEGATIVE) mg/dL Urine Ketones NEGATIVE (NEGATIVE) mg/dL Urine Occult Blood NEGATIVE (NEGATIVE) Urine Nitrite NEGATIVE (NEGATIVE) Urine Bilirubin NEGATIVE (NEGATIVE) Urine Urobilinogen 0.2 (NORMAL) (NORMAL) E.U./dL Ur Leukocyte Esterase NEGATIVE (NEGATIVE) Urine RBC None Seen (0-5) /HPF Urine WBC 0-3 (0-3) /HPF Ur Squamous Epith Cells NONE SEEN (<= Few) Urine Bacteria None Seen (None Seen) /HPF Ur Microscopic Review INDICATED Urine Culture Comments NOT INDICATED Exam Exam Vital Signs: Vital Signs x48h Temp Pulse Resp BP Pulse Ox 12/17/24 17:05 64 18 173/67 H 99 12/17/24 14:28 36.5 C 67 16 168/84 H 98 Conclusion/Plan Problem List (1) Small bowel obstruction: Lab Results 12/17/24 14:40 12/17/24 14:40 Other Other Results/Comments: General Surgery Consultation Note Assessment: 1) Recurrent SBO. No clinical, lab, or image findings consistent with bowel ischemia 2) History of sigmoid diverticulitis. The site of the bowel obstruction seems to be where the small bowel is adjacent to the sigmoid 3) History of open appendectomy (RLQ incision) 4) History of lymphoma involving the righ thigh and lung, s/p chemotherapy with clinical and image resolution of the disease as of September 2024 5) Atrial fibrillation. Normally on Xarelto but this was stopped 2 days ago in preparation for a colonoscopy procedure that was scheduled for this coming Tuesday Recommendation: 1) NGT to LIS 2) Sips and Chips 3) IV fluids 4) Hold Xarelto 5) If no resolution with bowel decompression, SB challenge study will be ordered in the am 6) Colonoscopy procedured has been cancelled for now as it is unlikely that he will be able to tolerate a bowel prep tomorrow <><><><><><><><><><> Reason for Consultation I am requested by Dr. Kim to provide consultation for: Obed Child Chief Complaint Abdominal pain HPI Obed is an 84 year old male who after eating kale for dinner developed periumbilical abdominal pain described as cramping and non-radiating. The pain started at 10 am today and continued to bother him until 1 pm when he decided to seek medical attention. He was nauseated but did not develop emesis. He had two bowel motions at 0800 and 0930 and then passed flatus at noon. He has had no bowel activity since then. Obed has had multiple prior episodes of this type of SBO usually associated with the ingestion of lettuce or leafy vegetables. Today's episode is his 7th this year, 3 of which (counting this event) requiring admission with NGT decompression. All episodes resolved without the need for surgical intervention. He claims to have had an episode of diverticulitis last year which was managed with out-patient antibiotics. Obed has also recently completed treatment for lymphoma of the right thigh and lungs which has resolved with chemotherapy as of September 2024. He was recently seen in the Surgical [facility] and was scheduled for colonoscopy this week. At the time of my evaluation of this patient his abdominal symptoms had resolved. An NGT was in place and was pulling scant gastric fluid. [place]; - Cig; - ETOH; - Recreational drugs Current Medications See "Medication" section Allergies Empagliflozin ROS Pertinent positives Abdominal cramping. mild nausea. All other reviewed systems negative Physical Examination Vital Signs: 173/67; 64; 18; O2 sat 99 BMI: 29 GENERAL APPEARANCE: Normal development, normal body habitus, normal grooming PSYCHIATRIC: AAO; Comfortable; In NAD EYES: Pupils equal, round and reactive to light, sclera anicteric EARS, NOSE, MOUTH, THROAT: Hearing normal, Oral mucous membranes moist and without lesions; NGT in place NECK: No crepitus, lymphadenopathy, or thyromegaly LUNGS: Clear to auscultation without wheezing; No use of accessory muscles to breathe CARDIOVASCULAR: Heart-NSR without murmurs; Palpable carotid arteries - no bruits; Peripheral edema absent ABD: Soft; minimal distension; no tenderness in any quadrant; No peritoneal irritation; RLQ appendectomy scar without hernia LYMPHATIC: Neck, Axillae, Groin no palpable adenopathy EXTREMITIES: No clubbing, cyanosis, infections SKIN: Anicteric; No rashes, lesions, Ulcerations Labs WBC 9.6; H&H 11.7/37.9; Plt 232K; Na 139, K 4.2; BUN 16; Cr1.2; Glu 107 See "Labs" section Imaging CT ABD/PELVIS - dilated small bowel with fecalization of the small bowel with transition zone in the LLQ; No free fluid, free air; Diverticulosis of the sigmoid colon - no diverticulitis All images were personally reviewed by me for this encounter. Mohsen Raymond MD, LOCATED [facility] General Surgery Service [phone]
--- NOTE | 2024-12-17 20:09 | XRAY Report ---
PROCEDURE: XR No-Charge 1V Abdomen INDICATIONS: NGT placement TECHNIQUE: 1 view of the abdomen were acquired. COMPARISON: CT abdomen pelvis on 12/17/2024 FINDINGS: Surgical changes and devices: A subdiaphragmatic enteric tube is looped with tip directed superiorly in the distal intrathoracic esophagus. Bowel: Partially visualized dilated loops of small bowel in the inferior central abdomen.. Stool load within normal limits. Soft tissues: No masses; visualized solid organ contours appear normal in size. No suspicious abdominal calcifications. Bones: No suspicious bony abnormalities. IMPRESSION: Enteric tube is looped in the distal esophagus with tip directed superiorly. Recommend repositioning. The NG tube remains superiorly directed on the most recent radiograph performed at 6:24 p.m. Partially visualized dilated loops of small bowel, better seen on same-day CT, concerning for small bowel obstruction. Reviewed by: Erick Alvarez MD on 12/17/2024 8:06 PM PDT Approved by: Erick Alvarez MD on 12/17/2024 8:06 PM PDT Station ID: [id number]
--- NOTE | 2024-12-17 21:20 | HISTORY & PHYSICAL EXAMINATION ---
Chief Complaint Chief Complaint Chief Complaint: Abdominal Pain History of Present Illness History of Present Illness HPI Comment/Other: Obed Child is an 84 year-old male with PMH significant for HFrEF, CAD status post CABG, A-Fib on Xarelto, appendectomy (13 yoa), recurrent SBO, prostatectomy, lymphoma (remission), T2DM, HTN, and Hypercholesterolemia. He presented to ED for abdominal pain since 10am. Patient has a long history with small bowel obstructions with most recent hospitalization from 2 months ago, he stated this is 7th SBO to date. Patient described the pain as a spastic dull pain localized to the epigastrum which cycles in 5 minute intervals. Belching and flatulating makes the pain better, nothing makes it worse. Precipitaing events that led to this pain are well known to the patient. He stated that he had dinner with friends Tuesday PM in which he ate a larger than normal meal with "ruffage". Patient had poor sleep. Pain started after breakfast at 10am and had progressed throughout the day, patient knew that he may have an SBO but waited it out to see if it would pass. Decided at 1pm that he needed to go to the hospital. Patient noted he has not taken his Zoralto because he was supposed to be getting a colonoscopy at [facility] on tuesday. Patient is currently not in pain which was relieved by pain meds given in the ED. He had an NG tube placed and said that he thinks its working. Patient will be admitted for OBS for SBO. DNR Meds/Allgy Home Medications Ambulatory Orders Medication Instructions Recorded Confirmed nitroglycerin 0.4 mg sublingual 1 tab sublingual Q5M P RN Chest Pain 06/11/23 12/13/24 tablet ipratropium bromide 21 mcg (0.03 2 spray intranasal QI D #90 mL 03/12/24 12/17/24 %) nasal spray atorvastatin 40 mg tablet 40 mg PO DAILY 07/12/2409/05 metoprolol succinate 25 mg 25 mg PO DAILY 07/12/2409/05 tablet,extended release 24 hr omeprazole magnesium 20 mg 20 mg PO DAILY 07/12/2409/05 capsule,delayed release furosemide 20 mg tablet See Rx Instructions PO DAILY #180 08/16/24 12/17/24 tabs rivaroxaban 20 mg tablet (Xarelto) 20 mg PO QPM #90 ta bs 10/08/24 12/17/24 lisinopril 5 mg tablet 5 mg PO ONCE 10/23/24 peg 3350-electrolytes 236 240 ml PO Q10M #4,000 mL 12/0612/17/24 gram-22.74 gram-6.74 gram-5.86 gram solution (Golytely) Allergies Allergies Allergy/AdvReac Type Severity Reaction Status Date / Time empagliflozin (From AdvReac Nausea Verified 12/13/24 15:02 Jardiance) milk AdvReac gas Verified 12/13/24 15:02 PFSH Active Problems All Active Problems (Updated 12/17/24 @ 16:48 by Nura Kim MD) Small bowel obstruction (Acute) Lumbar radiculopathy (Acute) Frequent urination (Acute) Sciatica (Acute) Urinary incontinence (Acute) Abnormal computed tomography of sigmoid colon (Acute) Healthcare maintenance (Acute) Right lower lobe pulmonary nodule (Acute) Alcohol abuse (Acute) Hyperlipidemia (Acute) BPH (benign prostatic hyperplasia) (Acute) Macular degeneration (Acute) Gout (Acute) Vitamin D deficiency (Acute) Anemia (Acute) Severe malnutrition (Acute) Right thyroid nodule (Acute) Diffuse large B-cell lymphoma of lymph nodes of multiple regions (Acute) Atrial fibrillation (Acute) GERD (gastroesophageal reflux disease) (Acute) DM type 2 (diabetes mellitus, type 2) (Acute) HTN (hypertension) (Acute) Dyspnea on exertion (Acute) CAD (coronary artery disease) (Acute) Medical History Medical History (Updated 12/17/24 @ 16:48 by Nura Kim MD) Peripheral neuropathy Hx of adenomatous colonic polyps Congestive heart failure Dizziness Local reaction to bee sting Small bowel obstruction recurrent: 07/2024, 09/2024 Diverticulitis (~08/2023) perforated with abscess Surgical History Surgical History Hx of colonoscopy (~12/28/16) [facility] Dr. Ha mild diverticulosis . [facility] Dr. Horton 11/08/2012 2 benign TA S/P CABG x 2 (~05/2022) with 2 stents History of transurethral resection of prostate (~2011) Hx of hemorrhoidectomy (~1999) History of tonsillectomy History of appendectomy (~1954) Family History Family History (Updated 11/15/24 @ 10:26 by Fany Cortes MA) Other Family history unknown Social History Social History (Updated 12/17/24 @ 15:12 by Viktoria Vaughan RN) Smoking Status: Former smoker If you are a former smoker, when did you quit? (Date/Year): 1982 Number of Years Smoked: 31 How many cigarettes a day do you smoke? (20 cigarettes=1 Pk): 20 Second hand tobacco smoke exposure: Yes Do you dip or chew tobacco?: No Do you vape?: No Patient requests smoking cessation consult: No Initiate information on smoking cessation: No Living arrangement: At home Living Condition: Alone Support Person: Yes Has a Durable Power of Trimmer Climber for Health Care?: Yes DPOA on file?: No Has Health Care Directive?: Yes Health Care Directive on file?: No How many days per week?: 4 Level: Independent Do you feel safe in your home environment?: Yes History of physical, verbal, emotional, or financial abuse?: No ETOH Use: None Frequency: Daily Substance Use: denies use Are you sexually active?: No Retired: Yes Dates of Service: [id number] POLST Patient has POLST: No Exam Exam Vital Signs: Vital Signs x48h Temp Pulse Resp BP Pulse Ox 12/17/24 19:00 36.7 C 64 16 165/67 H 97 12/17/24 17:05 64 18 173/67 H 99 12/17/24 14:28 36.5 C 67 16 168/84 H 98 Constitutional normal general appearance, no apparent distress, average body habitus, no limitations and alert HENMT normocephalic, head/scalp atraumatic and hearing grossly normal bilaterally Eyes PERRL Neck/C-Spine visual inspection normal Chest inspection of chest normal Respiratory breath sounds equal bilaterally, normal respiratory effort, clear to auscultation bilaterally, no wheezes, no rales, no retractions and no use of accessory muscles Cardiovascular normal heart rate noted, rhythm abnormal and no JVD Gastrointestinal abdomen normal to inspection, abdomen soft to palpation, tender to palpation (mild) and (epigastric) and abnormal bowel sounds noted (hypoactive bowel sounds) Extremities normal to inspection, normal to palpation and no tenderness Neurology no focal motor deficit noted, speech normal and coordination normal Skin skin color normal, no rash, no lesions, no ecchymosis noted and no jaundice Conclusion/Plan Problem List (1) Small bowel obstruction: Plan: Patient was given an NG tube for decompression and pain meds while in the ED. Impression from CT noted dilated distal small bowel with transition seen in the left lower abdomen concerning for SBO, which is consistent with the presentation. Order: Consider Gastrografin Protocol if bowel obstruction is not reduced by the AM. Treatment: Continue Dilaudid for pain control (2) Atrial fibrillation: Plan: Patient's Afib is longstanding and is being managed with Xarelto (Rivaroxaban), patient will be not taking these medications pending outpatient colonoscopy that was already planned for tuesday. Treatment: Metroprolol 5mg q6h IV Qualifiers: Atrial fibrillation type: unspecified Qualified Code(s): I48.91 - Unspecified atrial fibrillation Lab Results Lab results reviewed: Yes 12/17/24 14:40 12/17/24 14:40 EKG Results EKG Interpreted Independently: No
[2024-12-17] MEDS ORDERED: HYDROmorphone 0.5 MG/0.5 ML SYRINGE IVP PRN (22:29)
[2024-12-17] MEDS ORDERED: PROCHLORPERAZINE 10 MG/2 ML VIAL IVP PRN (22:29)
[2024-12-17] MEDS ORDERED: SODIUM CHLORIDE FLUSH 0.9% 10 ML SYRINGE IVP PRN (22:29)
[2024-12-17] MEDS: HYDROmorphone 0.5 MG/0.5 ML SYRINGE IVP PRN (22:39)
[2024-12-17] MEDS: METOPROLOL 5 MG/5 ML VIAL IVP SCH (22:45)
[2024-12-17] MEDS: SODIUM CHLORIDE 0.9% 1,000 ML IV SCH (22:46)
[2024-12-18] MEDS: SODIUM CHLORIDE FLUSH 0.9% 10 ML SYRINGE IVP SCH (00:48)
--- NOTE | 2024-12-18 06:45 | PROVIDER PROGRESS NOTE ---
Progress Note Progress Note Progress Note: General Surgery Progress Note S: Comfortable, no abdominal pain, passed a little flatus last night O: AAO; NGT in place - 200 output since insertion; Lungs clear; Heart NSR; Abd soft, non-tender, minimal distension Labs: WBC 9.6; H&H 37.9/11.7; Plt 232K; Na 139; K 4.2; BUN 16; Cr 1.2; Glu 107 A/P: SBO vs ileus. I have ordered a SB Challenge study this morning as he has not yet resumed normal bowel function. He should ambulate once the study begins. Mohsen Raymond MD, FACS General Surgery Service
[2024-12-18] MEDS ORDERED: DIATR MEGLU/DIATRIZOATE SODIUM 120 ML BOTTLE ONE (07:15)
[2024-12-18] MEDS: PANTOPRAZOLE 40 MG VIAL IVP SCH (08:14)
[2024-12-18] MEDS: ENOXAPARIN 40 MG/0.4 ML SYRINGE SUBQ SCH (08:14)
--- NOTE | 2024-12-18 08:15 | XRAY Report ---
PROCEDURE: XR No-Charge 1V Abdomen INDICATIONS: NG position TECHNIQUE: 1 view of the abdomen were acquired. COMPARISON: None. FINDINGS: Surgical changes and devices: Nasogastric tube is present with distal tip projecting of near the gastroesophageal junction. While it does not project cranially as on prior, it is considered borderline in appearance. Bowel: The bowel gas pattern is normal. Stool load within normal limits. Soft tissues: No masses; visualized solid organ contours appear normal in size. No suspicious abdominal calcifications. Bones: No suspicious bony abnormalities. IMPRESSION: Nasogastric tube with distal tip at the gastroesophageal junction. Repositioning is recommended. Reviewed by: Jeri Caraballo MD on 12/18/2024 8:12 AM PDT Approved by: Jeri Caraballo MD on 12/18/2024 8:12 AM PDT Station ID: [id number]
--- NOTE | 2024-12-18 11:30 | XRAY Report ---
ROCEDURE: XR Chest for Line Placement INDICATIONS: Placement for NGT to advance 2 cm TECHNIQUE: One view of the chest was acquired. COMPARISON: December 17, 2024 at 21:51 FINDINGS: FINDINGS: Nasogastric tube extends into the left upper abdomen, coils back towards the gastroesophageal junction with the distal tip at the level of the distal esophagus should be repositioned or removed. Remainder of the exam is unchanged. Mildly enlarged cardiopericardial silhouette unchanged. Calcifications of the aortic arch unchanged. Mild bibasilar subsegmental atelectasis and mild peribronchial thickening unchanged. No gross pneumothorax, no large pleural effusion. IMPRESSION: Nasogastric tube distal tip at the level of the distal esophagus should be repositioned or removed. Other findings as above If symptoms persist or worsen, or there is high clinical suspicion of thoracic abnormality, CT chest could be performed. Reviewed by: Shamir Sanchez MD on 12/18/2024 11:27 AM PDT Approved by: Shamir Sanchez MD on 12/18/2024 11:27 AM PDT Station ID: [id number]
[2024-12-18] MEDS: DIATR MEGLU/DIATRIZOATE SODIUM 120 ML BOTTLE PO ONE (13:42)
[2024-12-18] MEDS: ONDANSETRON 4 MG/2 ML VIAL IVP PRN (13:57)
--- NOTE | 2024-12-18 14:49 | PHARMACY PROGRESS NOTE ---
Best Possible Medication History Admit Date and Time: 12/17/242037 Home Medications Medication Instructions Recorded Confirmed Type nitroglycerin 0.4 mg sublingual 1 tab sublingual Q5M P RN Chest Pain 06/11/23 12/18/24 History tablet ipratropium bromide 21 mcg (0.03 2 spray intranasal QI D #90 mL 03/12/24 12/17/24 Rx %) nasal spray atorvastatin 40 mg tablet 40 mg PO DAILY 07/12/2409/05 History metoprolol succinate 25 mg 25 mg PO DAILY 07/12/2409/05 History tablet,extended release 24 hr omeprazole magnesium 20 mg 20 mg PO DAILY 07/12/2409/05 History capsule,delayed release furosemide 20 mg tablet See Rx Instructions PO DAILY #180 08/16/24 12/17/24 Rx tabs rivaroxaban 20 mg tablet (Xarelto) 20 mg PO QPM #90 ta bs 10/08/24 12/17/24 Rx lisinopril 5 mg tablet 5 mg PO ONCE 10/23/24 History peg 3350-electrolytes 236 240 ml PO Q10M #4,000 mL 12/0612/17/24 Rx gram-22.74 gram-6.74 gram-5.86 gram solution (Golytely) oxybutynin chloride 5 mg 5 mg PO DAILY 12/18/2412/18 History tablet,extended release 24 hr vitamin A-vitamin C-vit E-min 1 tab PO DAILY 12/18/24 12/18/24 History tablet (Vision tablet) Processed by: Pharmacy Medications reviewed in ED?: Yes Medication History completed: Yes Patient Interview: Completed Secondary Source(s): Insurance records [facility] Statement: As the person ultimately responsible for medication therapy, providers are able to order a medication from an existing home medication list in [facility] via the "Reconcile Routine" prior to Confirmation of that medication by senior safety support manager. Such practice is discouraged except when the physician, in their clinical judgment, deems that a medical need exists for a medication without regard to previous use.
--- NOTE | 2024-12-18 16:33 | XRAY Report ---
PROCEDURE: XR SBFT Challenge Panel INDICATIONS: SBO vs Ileus COMPARISON: CT abdomen and pelvis dated 12/17/2024 CONTRAST: 120 mL of oral Gastrografin FINDINGS: KUB: Multiple median sternotomy wires. Nasogastric tube coiled in the proximal stomach. Preprocedural scissors sharpener film demonstrates a nonobstructive bowel gas pattern. No suspicious abdominal calcifications. Visualized solid organ contours appear normal. No suspicious bony abnormalities. Small bowel: There is transit of ingested barium through the small bowel. Small bowel loops remain mildly dilated. Mucosal folds are smooth and of normal thickness. No strictures, intraluminal masses, or extrinsic mass effects are noted. Oral contrast is noted within the colon by the 2.5-hour image. IMPRESSION: Transit of ingested oral contrast from the stomach through the colon within 2.5 hours. Persistent mildly dilated loops of small bowel. Reviewed by: Aamir Brady MD on 12/18/2024 4:30 PM PDT Approved by: Aamir Brady MD on 12/18/2024 4:30 PM PDT Station ID: [id number]
--- NOTE | 2024-12-18 17:40 | PROVIDER PROGRESS NOTE ---
Subjective Prog Note Date Prog Note Date: 12/18/24 Prog Note Time: 18:24 Subjective Pt reports feeling: Improved Subjective: 84M admitted to inpatient for small bowel obstruction. Patient this AM had still not had a bowel movement and the call was made to start a Gastrografin protocol. NG tube was repositioned because the distal end was coiling back to the gastroesophageal junction. CT chest was used to further confirm placement. Gastrografin was started and at around 5pm patient made his first bowel movement and has relief of pain and pressure in his abdomen. He will follow up with to have a conversation about possible preventative treatment options. Patient n.p.o. was removed and placed on full diet. Patient has was alert and in good spirits. Current Medications Current Medications Current Medications: Current Medications Generic Name Dose Route Start Last Admin Trade Name Freq PRN Reason Stop Dose Admin Enoxaparin Sodium 40 mg 12/18/24 09:00 12/18/24 08:14 Enoxaparin 40 Mg/0.4 Ml Syringe SUBQ 40 mg DAILY GILMAR Administration Hydromorphone HCl 0.5 mg 12/17/24 22:29 12/18/24 17:20 Hydromorphone 0.5 Mg/0.5 Ml Syringe IVP 0.5 mg Q2H PRN Administration Severe Pain (Level 7-10) Sodium Chloride 1,000 mls @ 100 mls/hr 12/17/24 22:29 12/18/24 17:15 Normal Saline 0.9% IV 100 mls/hr .Q10H GILMAR Administration Metoprolol Tartrate 5 mg 12/17/24 22:29 12/18/24 17:14 Metoprolol 5 Mg/5 Ml Vial IVP Not Given Q6H GILMAR Ondansetron HCl 4 mg 12/17/24 22:29 12/18/24 13:57 Ondansetron 4 Mg/2 Ml Vial IVP 4 mg Q6HR PRN Administration Nausea / Vomiting Pantoprazole Sodium 40 mg 12/18/24 09:00 12/18/24 08:14 Pantoprazole 40 Mg Vial IVP 40 mg DAILY GILMAR Administration Prochlorperazine Edisylate 10 mg 12/17/24 22:29 Prochlorperazine 10 Mg/2 Ml Vial IVP Q6HR PRN Nausea / Vomiting Sodium Chloride 10 ml 12/17/24 22:29 Sodium Chloride Flush 0.9% 10 Ml Syringe IVP PRN PRN NEEDED PER PROVIDER ORDERS Sodium Chloride 10 ml 12/18/24 01:00 12/18/24 17:16 Sodium Chloride Flush 0.9% 10 Ml Syringe IVP 10 ml 0100,0900,1700 GILMAR Administration Objective Vital Signs/Intake & Output Reviewed Vital Signs: Yes Vital Signs: Vital Signs x48h Temp Pulse Pulse Resp BP BP Pulse Ox 12/18/24 17:14 83 151/73 H 12/18/24 13:00 36.8 C 74 14 116/56 L 94 12/18/24 10:16 68 156/70 H Intake & Output: Intake & Output 12/15/24 12/16/24 12/17/24 12/18/24 23:59 23:59 23:59 23:59 Intake Total 120 / 120 2297 / 2297 Output Total 200 / 200 975 / 975 Balance -80 / -80 1322 / 1322 Weight (kg) 95 kg Objective General Appearance: positive No acute distress and Alert Eyes Bilateral: positive Normal inspection and PERRL ENT: positive ENT inspection nml and Pharynx nml Neck: positive Nml inspection, No JVD and Trachea midline Respiratory: positive Chest non-tender, No respiratory distress and Breath sounds nml Cardiovascular: positive Irregularly irregular Abdomen: positive Non-tender Skin: positive Color nml, No rash, Warm and Dry Extremities: positive Non-tender Neurologic/Psychiatric: positive Oriented x3, Motor nml and Mood/affect nml Lab Results 12/17/24 14:40 12/17/24 14:40 ABX Reporting Has patient been on IV antibiotics over the past 48 hours?: No Assessment/Plan Problem List (1) Small bowel obstruction: Impression: Patient was given an NG tube for decompression and pain meds while in the ED. Impression from CT noted dilated distal small bowel with transition seen in the left lower abdomen concerning for SBO, which is consistent with the presentation. Gastrografin Protocol initiated. Patient received 120mL of oral Gastrografin contrast that moved through the colon within 2.5 hours. Findings noted persistent mildly dilated loops of small bowel. Patient had passed stool around 5pm. Patient states he not longer has any pain. - Remove NG tube - Remove n.p.o. order - Placed on full diet - Discontinue Diladid (2) Atrial fibrillation: Impression: Longstanding and is currently being managed with Xarelto (Rivaroxaban) - Resume Metroprolol 25mg daily - Apixaban 5mg BID AM pending discharge Qualifiers: Atrial fibrillation type: unspecified Qualified Code(s): I48.91 - Unspecified atrial fibrillation
--- OUTSIDE RECORDS SUMMARY | 2024-12-18 19:42 | EXTERNAL MEDICAL SUMMARY RPT | Continuity of Care Document ---
Author Organization [facility] Address [address] [place] [id number] Phone Problems date description facility 2024-09-25 13:08 Diffuse large B-cell lymphoma, [facility] 2024-09-25 15:13 Diffuse large B-cell lymphoma, [facility] of multiple sites [facility] 2024-09-26 00:04 Diffuse large B-cell lymphoma, lymph nodes of multiple sites [facility] 2024-10-05 10:54 Diffuse large B-cell lymphoma, lymph nodes of multiple sites [facility] 2024-10-05 10:54 Nontoxic single thyroid nodule [facility] 2024-10-05 10:54 Solitary pulmonary nodule [facility] 2024-10-05 10:54 Abnormal findings on diagnostic imaging of other parts of digestive tract [facility] 2024-10-05 10:54 Encounter for genera l adult medical examination without abnormal findings [facility] 2024-10-11 11:49 Unspecified intestin al obstruction, unspecified as to partial versus complete obstruction [facility] 2024-10-11 12:22 Unspecified intestin al obstruction, unspecified as to partial versus complete obstruction [facility] 2024-10-12 04:38 Type 2 diabetes mellitus withou t complications [facility] 2024-10-12 04:38 Essential (primary) hypertensio n [facility] 2024-10-12 04:38 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 [employer] 2024-10-12 04:38 Unspecified atrial fibrillation [facility] 2024-10-12 04:38 Heart failure, unspecified [employer] 2024-10-12 04:38 Unspecified intestin al obstruction, unspecified as to partial versus complete obstruction [facility] 2024-10-12 04:38 Disease of digestive system, un specified [facility] 2024-10-12 04:38 Dyspnea, unspecified [facility] 2024-10-12 04:38 Shortness of breath [facility] 2024-10-12 04:38 Unspecified abdominal pain [facility] 2024-10-12 04:38 Nausea with vomiting, unspecifi ed [facility] 2024-10-12 04:38 Edema, unspecified [facility] 2024-10-12 09:31 Type 2 diabetes mellitus withou t complications [facility] 2024-10-12 09:31 Essential (primary) hypertensio n [facility] 2024-10-12 09:31 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 [facility] 2024-10-12 09:31 Unspecified atrial fibrillation [facility] 2024-10-12 09:31 Unspecified intestin al obstruction, unspecified as to partial versus complete obstruction [employer] 2024-10-12 10:57 Type 2 diabetes mellitus withou t complications [facility] 2024-10-12 10:57 Essential (primary) hypertensio n [facility] 2024-10-12 10:57 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 [facility] 2024-10-12 10:57 Unspecified atrial fibrillation [facility] 2024-10-12 10:57 Unspecified intestin al obstruction, unspecified as to partial versus complete obstruction [employer] 2024-10-13 09:30 Type 2 diabetes mellitus withou t complications [facility] 2024-10-13 09:30 Essential (primary) hypertensio n [facility] 2024-10-13 09:30 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 [employer] 2024-10-13 09:30 Unspecified atrial fibrillation [facility] 2024-10-13 09:30 Unspecified intestin al obstruction, unspecified as to partial versus complete obstruction [employer] 2024-10-13 09:31 Type 2 diabetes mellitus withou t complications [employer] 2024-10-13 09:31 Essential (primary) hypertensio n [employer] 2024-10-13 09:31 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 [facility] 2024-10-13 09:31 Unspecified atrial fibrillation [facility] 2024-10-13 09:31 Unspecified intestin al obstruction, unspecified as to partial versus complete obstruction [facility] 2024-10-13 09:34 Type 2 diabetes mellitus withou t complications [facility] 2024-10-13 09:34 Essential (primary) hypertensio n [facility] 2024-10-13 09:34 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 [employer] 2024-10-13 09:34 Unspecified atrial fibrillation [facility] 2024-10-13 09:34 Unspecified intestin al obstruction, unspecified as to partial versus complete obstruction [facility] [employer] [facility] 2024-10-13 09:55 Type 2 diabetes mellitus withou t complications [facility] 2024-10-13 09:55 Essential (primary) hypertensio n [facility] 2024-10-13 09:55 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 [employer] 2024-10-13 09:55 Unspecified atrial fibrillation [facility] 2024-10-13 09:55 Unspecified intestin al obstruction, unspecified as to partial versus complete obstruction [facility] 2024-10-13 09:57 Type 2 diabetes mellitus withou t complications [facility] 2024-10-13 09:57 Essential (primary) hypertensio n [employer] 2024-10-13 09:57 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 [employer] [facility] 2024-10-13 09:57 Unspecified atrial fibrillation [employer] [facility] 2024-10-13 09:57 Unspecified intestin al obstruction, unspecified as to partial versus complete obstruction [facility] 2024-10-13 10:54 Type 2 diabetes mellitus withou t complications [facility] 2024-10-13 10:54 Essential (primary) hypertensio n [employer] 2024-10-13 10:54 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 [facility] 2024-10-13 10:54 Unspecified atrial fibrillation [facility] 2024-10-13 10:54 Unspecified intestin al obstruction, unspecified as to partial versus complete obstruction [facility] 2024-10-15 09:39 Type 2 diabetes mellitus withou t complications [facility] 2024-10-15 09:39 Essential (primary) hypertensio n [facility]un[facility] [employer] [facility] 2024-10-15 09:39 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 [facility] 2024-10-15 09:39 Unspecified atrial fibrillation [facility] 2024-10-15 09:39 Unspecified intestin al obstruction, unspecified as to partial versus complete obstruction [facility] 2024-10-15 09:39 Constipation, unspecified [facility] 2024-10-24 08:10 Type 2 diabetes mellitus withou t complications [facility] 2024-10-24 08:10 Essential (primary) hypertensio n [facility] 2024-10-24 08:10 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 [facility] [employer] [facility] 2024-10-24 08:10 Unspecified atrial fibrillation [facility] 2024-10-24 08:10 Heart failure, unspecified [email or web address] [facility] 2024-10-24 08:10 Unspecified intestin al obstruction, unspecified as to partial versus complete obstruction [facility] 2024-10-24 08:10 Constipation, unspecified [facility] 2024-10-24 08:10 Disease of digestive system, un specified [facility] 2024-10-24 08:10 Dyspnea, unspecified [facility] 2024-10-24 08:10 Shortness of breath [facility] 2024-10-24 08:10 Unspecified abdominal pain [email or web address] [facility] [email or web address] 2024-10-24 08:10 Nausea with vomiting, unspecifi ed [facility] 2024-10-24 08:10 Edema, unspecified [facility] 2024-11-07 11:43 Diffuse large B-cell lymphoma, lymph nodes of multiple sites [facility] 2024-11-07 11:43 Type 2 diabetes mellitus withou t complications [facility] 2024-11-07 11:43 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 [facility] 2024-11-07 11:43 Unspecified intestin al obstruction, unspecified as to partial versus complete obstruction [facility] 2024-11-07 11:43 Radiculopathy, lumbar region [facility] 2024-11-07 16:29 Diffuse large B-cell lymphoma, lymph nodes of multiple sites [facility] 2024-11-07 16:29 Type 2 diabetes mellitus withou t complications [facility] 2024-11-07 16:29 Essential (primary) hypertensio n [facility] 2024-11-07 16:29 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 [facility] 2024-11-07 16:29 Unspecified atrial fibrillation [facility] 2024-11-07 16:29 Heart failure, unspecified [facility] 2024-11-07 16:29 Unspecified intestin al obstruction, unspecified as to partial versus complete obstruction [facility] 2024-11-07 16:29 Constipation, unspecified [facility] 2024-11-07 16:29 Disease of digestive system, un specified [facility] 2024-11-07 16:29 Radiculopathy, lumbar region [facility] 2024-11-07 16:29 Dyspnea, unspecified [facility] 2024-11-07 16:29 Shortness of breath [facility] 2024-11-07 16:29 Unspecified abdominal pain [facility] 2024-11-07 16:29 Nausea with vomiting, unspecifi ed [facility] 2024-11-07 16:29 Edema, unspecified [facility] 2024-11-21 13:01 Type 2 diabetes mellitus withou t complications [facility] 2024-11-21 13:01 Essential (primary) hypertensio n [facility] 2024-11-21 13:01 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 [facility] 2024-11-21 13:01 Unspecified atrial fibrillation [facility] 2024-11-21 13:01 Heart failure, unspecified id bey [facility] 2024-11-21 13:01 Unspecified intestin al obstruction, unspecified as to partial versus complete obstruction [facility] 2024-11-21 13:01 Constipation, unspecified [facility] 2024-11-21 13:01 Disease of digestive system, un specified [facility] 2024-11-21 13:01 Dyspnea, unspecified [facility] 2024-11-21 13:01 Shortness of breath [facility] 2024-11-21 13:01 Unspecified abdominal pain [facility] 2024-11-21 13:01 Nausea with vomiting, unspecifi ed [facility] 2024-11-21 13:01 Edema, unspecified [facility] 2024-12-17 21:09 Unspecified intestin al obstruction, unspecified as to partial versus complete obstruction [facility] 2024-12-17 23:04 Unspecified atrial fibrillation [facility] 2024-12-17 23:04 Unspecified intestin al obstruction, unspecified as to partial versus complete obstruction [facility] 2024-12-18 08:21 Type 2 diabetes mellitus withou t complications [facility] 2024-12-18 08:21 Essential (primary) hypertensio n [facility] 2024-12-18 08:21 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 [facility] 2024-12-18 08:21 Unspecified atrial fibrillation [facility] 2024-12-18 08:21 Heart failure, unspecified id [facility] 2024-12-18 08:21 Unspecified intestin al obstruction, unspecified as to partial versus complete obstruction [facility] 2024-12-18 08:21 Constipation, unspecified [facility] 2024-12-18 08:21 Disease of digestive system, un specified [facility] 2024-12-18 08:21 Dyspnea, unspecified [facility] 2024-12-18 08:21 Shortness of breath [facility] 2024-12-18 08:21 Unspecified abdominal pain [email or web address] [facility] [email or web address] 2024-12-18 08:21 Nausea with vomiting, unspecifi ed [facility] 2024-12-18 08:21 Edema, unspecified [facility] 2024-12-18 19:24 Unspecified atrial fibrillation [facility] 2024-12-18 19:24 Unspecified intestin al obstruction, unspecified as to partial versus complete obstruction [facility] Results/Labs test date facility value unit notes Result panel 1 NUCLEATED RED BLOOD CELLS AUTO 2024-09-25 13:12 [facility] 0.0 /100wbc (missing) BASOPHILS # (AUTO) 2024-09-25 13:12 [facility] 0.0 10 3/ul (missing) NRBC ABSOLUTE COUNT (AUTO) 2024-09-25 13:12 [facility] 0.00 x10 3/ul (missing) EOSINOPHILS # (AUTO) 2024-09-25 13:12 [facility] 0.1 10 3/ul (missing) BILIRUBIN,TOTAL 2024-09-25 13:12 [facility] 0.5 mg/dl As of September 2022 testing method has changed, this may include reference ranges. MONOCYTES # (AUTO) 2024-09-25 13:12 [facility] 0.6 10 3/ul (missing) LYMPHOCYTES # (AUTO) 2024-09-25 13:12 [facility] 0.9 10 3/ul (missing) CREATININE 2024-09-25 13:12 [facility] 1.1 mg/dl As of September 2022 testing method has changed, this may include reference ranges. ALBUMIN/GLOBULIN RATIO 2024-09-25 13:12 [facility] 1.4 (missing) (missing) AST ASPARTATE AMINOTRANSFERASE 2024-09-25 13:12 [facility] 10 iu/l As of September 2022 testing method has changed, this may include reference ranges. MEAN PLATELET VOLUME 2024-09-25 13:12 [facility] 10.9 fl (missing) GLUCOSE 2024-09-25 13:12 [facility] 103 mg/dl As of September 2022 testing method has changed, this may include reference ranges. CHLORIDE 2024-09-25 13:12 [facility] 104 mmol/l As of September 2022 testing method has changed, this may include reference ranges. HGB - HEMOGLOBIN 2024-09-25 13:12 [facility] 11.2 g/dl (missing) ALKALINE PHOSPHATASE 2024-09-25 13:12 [facility] 133 iu/l As of September 2022 testing method has changed, this may include reference ranges. RED CELL DISTRIBUTION WIDTH 2024-09-25 13:12 [facility] 14.6 % (missing) SODIUM 2024-09-25 13:12 [facility] 140 mmol/l No BUN - BLOOD UREA NITROGEN 2024-09-25 13:12 [facility] 16 mg/dl As of September 2022 testing method has changed, this may include reference ranges. PLT - PLATELET COUNT 2024-09-25 13:12 [facility] 229 10 3/ul (missing) MEAN CORPUSCULAR HEMOGLOBIN 2024-09-25 13:12 [facility] 28.7 pg (missing) CARBON DIOXIDE - CO2 2024-09-25 13:12 [facility] 29 mmol/l As of September 2022 testing method has changed, this may include reference ranges. GLOBULIN 2024-09-25 13:12 [facility] 3.1 g/dl (missing) POTASSIUM 2024-09-25 13:12 [facility] 3.9 mmol/l As of September 2022 testing method has changed, this may include reference ranges. RED BLOOD COUNT 2024-09-25 13:12 [facility] 3.90 10 6/ul (missing) MEAN CORPUSCULAR HGB CONC 2024-09-25 13:12 [facility] 31.3 g/dl (missing) HCT - HEMATOCRIT 2024-09-25 13:12 [facility] 35.8 % (missing) ALBUMIN 2024-09-25 13:12 [facility] 4.2 g/dl As of September 2022 testing method has changed, this may include reference ranges. NEUTROPHILS # (AUTO) 2024-09-25 13:12 [facility] 6.5 10 3/ul (missing) GFR - MDRD 2024-09-25 13:12 [facility] 64 (missing) The IDMS-traceable MDRD Study Equation has been validated extensively in and populations between the ages of 18 and 70 with impaired kidney function (eGFR < 60 mL/min/1.73m2) and has shown good performance for patients with all common causes of kidney disease. Although this equation has not been validated for patients older than 70, an MDRD-derived eGFR may still be a useful tool for providers caring for patients older than 70. References: http://www.nkdep. nih.gov/lab-evalu ation/gfr/creatin ine-stand ardization, last updated May 2011. ANION GAP 2024-09-25 13:12 [facility] 7.0 (missing) (missing) TOTAL PROTEIN 2024-09-25 13:12 [facility] 7.3 g/dl As of September 2022 testing method has changed, this may include reference ranges. ALT ALANINE AMINOTRANSFERASE 2024-09-25 13:12 [facility] 8 iu/l As of September 2022 testing method has changed, this may include reference ranges. WHITE BLOOD COUNT 2024-09-25 13:12 [facility] 8.2 x10 3/ul (missing) CALCIUM 2024-09-25 13:12 [facility] 8.9 mg/dl As of September 2022 testing method has changed, this may include reference ranges. MEAN CORPUSCULAR VOLUME 2024-09-25 13:12 [facility] 91.8 fl (missing) LDH - LACTATE DEHYDROGENASE 2024-09-25 13:12 [facility] 96 iu/l As of September 2022 testing method has changed, this may include reference ranges. Result panel 2 LIPASE 2024-10-11 09:55 [facility] < 10 u/l As of September 2022 testing method has changed, this may include reference ranges. NUCLEATED RED BLOOD CELLS AUTO 2024-10-11 09:55 [facility] 0.0 /100wbc (missing) BASOPHILS # (AUTO) 2024-10-11 09:55 [facility] 0.0 10 3/ul (missing) EOSINOPHILS # (AUTO) 2024-10-11 09:55 [facility] 0.0 10 3/ul (missing) NRBC ABSOLUTE COUNT (AUTO) 2024-10-11 09:55 [facility] 0.00 x10 3/ul (missing) MONOCYTES # (AUTO) 2024-10-11 09:55 [facility] 0.5 10 3/ul (missing) BILIRUBIN,TOTAL 2024-10-11 09:55 [facility] 0.5 mg /dl As of September 2022 testing method has changed, this may include reference ranges. LYMPHOCYTES # (AUTO) 2024-10-11 09:55 [facility] 0.6 10 3/ul (missing) CREATININE 2024-10-11 09:55 [facility] 0.9 mg/dl As of September 2022 testing method has changed, this may include reference ranges. ALBUMIN/GLOBULIN RATIO 2024-10-11 09:55 [facility] [email or web address] 1.2 (missing) (missing) NEUTROPHILS # (AUTO) 2024-10-11 09:55 [facility] 10.7 10 3/ul (missing) CHLORIDE 2024-10-11 09:55 [facility] 104 mmol/l As of September 2022 testing method has changed, this may include reference ranges. AST ASPARTATE AMINOTRANSFERASE 2024-10-11 09:55 [facility] 11 iu/l As of September 2022 testing method has changed, this may include reference ranges. MEAN PLATELET VOLUME 2024-10-11 09:55 [facility] [email or web address] 11.6 fl (missing) WHITE BLOOD COUNT 2024-10-11 09:55 [facility] 11.8 x10 3/ul (missing) HGB - HEMOGLOBIN 2024-10-11 09:55 [facility] [email or web address] 11.9 g /dl (missing) SODIUM 2024-10-11 09:55 [facility] [email or web address] 139 mmol/l (missing) BUN - BLOOD UREA NITROGEN 2024-10-11 09:55 [facility] [employer] [email or web address] 14 mg/dl As of Sep testing method has changed, this may include reference ranges. RED CELL DISTRIBUTION WIDTH 2024-10-11 09:55 [facility] 14.3 % (missing) GLUCOSE 2024-10-11 09:55 [facility] [employer] [email or web address] 141 mg/dl As of September 2022 testing method has changed, this may include reference ranges. ALKALINE PHOSPHATASE 2024-10-11 09:55 [facility] 148 iu/l As of September 2022 testing method has changed, this may include reference ranges. PLT - PLATELET COUNT 2024-10-11 09:55 [facility] 202 10 3/ul (missing) CARBON DIOXIDE - CO2 2024-10-11 09:55 [facility] 26 mmol/l As of September 2022 testing method has changed, this may include reference ranges. MEAN CORPUSCULAR HEMOGLOBIN 2024-10-11 09:55 [facility] 28.3 pg (missing) GLOBULIN 2024-10-11 09:55 [facility] 3.4 g/dl (missing) MEAN CORPUSCULAR HGB CONC 2024-10-11 09:55 [facility] 30.2 g/dl (missing) HCT - HEMATOCRIT 2024-10-11 09:55 [facility] 39.4 % (missing) ALBUMIN 2024-10-11 09:55 [facility] 4.2 g/dl As of September 2022 testing method has changed, this may include reference ranges. POTASSIUM 2024-10-11 09:55 [facility] 4.2 mmol/l As of September 2022 testing method has changed, this may include reference ranges. RED BLOOD COUNT 2024-10-11 09:55 [facility] 4.20 10 6/ul (missing) TOTAL PROTEIN 2024-10-11 09:55 [facility] 7.6 g/dl As of September 2022 testing method has changed, this may include reference ranges. ALT ALANINE AMINOTRANSFERASE 2024-10-11 09:55 [facility] 8 iu/l As of September 2022 testing method has changed, this may include reference ranges. GFR - MDRD 2024-10-11 09:55 [facility] 80 (missin g) The IDMS-traceable MDRD Study Equation has been validated extensively in and populations between the ages of 18 and 70 with impaired kidney function (eGFR < 60 mL/min/1.73m2) and has shown good performance for patients with all common causes of kidney disease. Although this equation has not been validated for patients older than 70, an MDRD-derived eGFR may still be a useful tool for providers caring for patients older than 70. References: http://www.nkdep. nih.gov/lab-evalu ation/gfr/creatin ine-stand ardization, last updated May 2011. ANION GAP 2024-10-11 09:55 [facility] 9.0 (missing ) (missing) CALCIUM 2024-10-11 09:55 [facility] 9.4 mg/dl As of September 2022 testing method has changed, this may include reference ranges. MEAN CORPUSCULAR VOLUME 2024-10-11 09:55 [facility] 93.8 fl (missing) Result panel 3 WBC,URINE 2024-10-11 12:50 [facility] 0-3 /hpf (missing) RBC,URINE 2024-10-11 12:50 [facility] 0-5 /hpf (missing) SPECIFIC GRAVITY,URINE 2024-10-11 12:50 [facility] 1.010 (missing) (missing) PH,URINE 2024-10-11 12:50 [facility] 6.5 ph (missing) CLARITY,URINE 2024-10-11 12:50 [facility] CLEAR (missing) (missing) URINE MICROSCOPIC INDICATED? 2024-10-11 12:50 [facility] INDICATED (missing) (missing) UROBILINOGEN,URIN E 2024-10-11 12:50 [facility] N e.u./dl (missing) LEUKOCYTE ESTERASE, URINE 2024-10-11 12:50 [facility] NEGATIVE (missing) (missing) NITRITE,URINE 2024-10-11 12:50 [facility] NEGATIVE (missing) (missing) BILIRUBIN,URINE 2024-10-11 12:50 [facility] NEGATIVE (missing) Bilirubin can be influenced by color interference. Please correlate positive results with clinical presentation GLUCOSE, URINE (UA) 2024-10-11 12:50 [facility] NEGATIVE mg/dl (missing) KETONES,URINE (UA) 2024-10-11 12:50 [facility] NEGATIVE mg/dl (missing) PROTEIN,URINE 2024-10-11 12:50 [facility] NEGATIVE mg/dl (missing) SQUAMOUS EPITHELIAL CELL,UR 2024-10-11 12:50 [facility] NONE SEEN (missing) (missing) UR CULTURE IF IND 2024-10-11 12:50 [facility] NOT INDICATED (missing) (missing) BACTERIA,URINE 2024-10-11 12:50 [facility] None Seen /hpf (missing) OCCULT BLOOD,URINE 2024-10-11 12:50 [facility] TRACE-INTACT (missing) (missing) COLOR,URINE 2024-10-11 12:50 [facility] YELLOW (missing) URINE CLEAN CATCH Result panel 4 CREATININE 2024-10-12 05:04 [facility] 1.0 mg/dl As of September 2022 testing method has changed, this may include reference ranges. MAGNESIUM 2024-10-12 05:04 [facility] 1.6 mg/dl As of September 2022 testing method has changed, this may include reference ranges. HGB - HEMOGLOBIN 2024-10-12 05:04 [facility] 10.0 g /dl (missing) MEAN PLATELET VOLUME 2024-10-12 05:04 [facility] 10.7 fl (missing) GLUCOSE 2024-10-12 05:04 [facility] 100 mg/dl As of September 2022 testing method has changed, this may include reference ranges. CHLORIDE 2024-10-12 05:04 [facility] 107 mmol/l As of September 2022 testing method has changed, this may include reference ranges. BUN - BLOOD UREA NITROGEN 2024-10-12 05:04 [facility] 13 mg/dl As of Sep testing method has changed, this may include reference ranges. RED CELL DISTRIBUTION WIDTH 2024-10-12 05:04 [facility] 14.2 % (mi ssing) SODIUM 2024-10-12 05:04 [facility] 141 mmol/l (missing) PLT - PLATELET COUNT 2024-10-12 05:04 [facility] 178 10 3/ul (missing) MEAN CORPUSCULAR HEMOGLOBIN 2024-10-12 05:04 [facility] 28.6 pg (missing) CARBON DIOXIDE - CO2 2024-10-12 05:04 [facility] 29 mmol/l As of September 2022 testing method has changed, this may include reference ranges. RED BLOOD COUNT 2024-10-12 05:04 [facility] 3.50 10 6/ul (missing) MEAN CORPUSCULAR HGB CONC 2024-10-12 05:04 [facility] 30.5 g/dl (missing) HCT - HEMATOCRIT 2024-10-12 05:04 [facility] 32.8 % (missing) POTASSIUM 2024-10-12 05:04 [facility] 4.0 mmol/l As of September 2022 testing method has changed, this may include reference ranges. ANION GAP 2024-10-12 05:04 [facility] 5.0 (missing ) (missing) WHITE BLOOD COUNT 2024-10-12 05:04 [facility] 7.2 x10 3/ul (missing) GFR - MDRD 2024-10-12 05:04 [facility] 71 (russell g) The IDMS-traceable MDRD Study Equation has been validated extensively in and populations between the ages of 18 and 70 with impaired kidney function (eGFR < 60 mL/min/1.73m2) and has shown good performance for patients with all common causes of kidney disease. Although this equation has not been validated for patients older than 70, an MDRD-derived eGFR may still be a useful tool for providers caring for patients older than 70. References: http://www.nkdep.n ih.gov/lab-evaluat ion/gfr/creatinine -stand ardization, last updated May 2011. CALCIUM 2024-10-12 05:04 [facility] 8.8 mg/dl As of September 2022 testing method has changed, this may include reference ranges. MEAN CORPUSCULAR VOLUME 2024-10-12 05:04 [facility] 93.7 fl (missing) Result panel 5 NUCLEATED RED BLOOD CELLS AUTO 2024-12-17 14:40 [facility] 0.0 /100wbc (missing) BASOPHILS # (AUTO) 2024-12-17 14:40 [facility] 0.0 10 3/ul (missing) NRBC ABSOLUTE COUNT (AUTO) 2024-12-17 14:40 [facility] 0.00 x10 3/ul (missing) EOSINOPHILS # (AUTO) 2024-12-17 14:40 [facility] 0.1 10 3/ul (missing) BILIRUBIN,TOTAL 2024-12-17 14:40 [facility] 0.4 mg/dl As of September 2022 testing method has changed, this may include reference ranges. MONOCYTES # (AUTO) 2024-12-17 14:40 [facility] 0.6 10 3/ul (missing) LYMPHOCYTES # (AUTO) 2024-12-17 14:40 [facility] 0.8 10 3/ul (missing) CREATININE 2024-12-17 14:40 [facility] 1.2 mg/dl As of September 2022 testing method has changed, this may include reference ranges. ALBUMIN/GLOBULIN RATIO 2024-12-17 14:40 [facility] 1.5 (missing) (missing) AST ASPARTATE AMINOTRANSFERASE 2024-12-17 14:40 [facility] 10 iu/l As of September 2022 testing method has changed, this may include reference ranges. LIPASE 2024-12-17 14:40 [facility] 10 u/l As of September 2022 testing method has changed, this may include reference ranges. MEAN PLATELET VOLUME 2024-12-17 14:40 [facility] 10.8 fl (missing) CHLORIDE 2024-12-17 14:40 [facility] 104 mmol/l As of September 2022 testing method has changed, this may include reference ranges. GLUCOSE 2024-12-17 14:40 [facility] 107 mg/dl As of September 2022 testing method has changed, this may include reference ranges. HGB - HEMOGLOBIN 2024-12-17 14:40 [facility] 11.7 g/dl (missing) SODIUM 2024-12-17 14:40 [employer] [email or web address] 139 mmol/l (missing) RED CELL DISTRIBUTION WIDTH 2024-12-17 14:40 [facility] 15.2 % (missing) ALKALINE PHOSPHATASE 2024-12-17 14:40 [facility] 150 iu/l As of September 2022 testing method has changed, this may include reference ranges. BUN - BLOOD UREA NITROGEN 2024-12-17 14:40 [facility] 16 mg/dl As of September 2022 testing method has changed, this may include reference ranges. PLT - PLATELET COUNT 2024-12-17 14:40 [employer] 232 10 3/ul (missing) MEAN CORPUSCULAR HEMOGLOBIN 2024-12-17 14:40 [facility] 28.4 pg (missing) GLOBULIN 2024-12-17 14:40 [facility] 3.1 g/dl (missing) CARBON DIOXIDE - CO2 2024-12-17 14:40 [facility] 30 mmol/l As of September 2022 testing method has changed, this may include reference ranges. MEAN CORPUSCULAR HGB CONC 2024-12-17 14:40 [facility] 30.9 g/dl (missing) HCT - HEMATOCRIT 2024-12-17 14:40 [facility] 37.9 % (missing) RED BLOOD COUNT 2024-12-17 14:40 [facility] 4.12 10 6/ul (missing) POTASSIUM 2024-12-17 14:40 [facility] 4.2 mmol/l As of September 2022 testing method has changed, this may include reference ranges. ALBUMIN 2024-12-17 14:40 [facility] 4.5 g/dl As of September 2022 testing method has changed, this may include reference ranges. ANION GAP 2024-12-17 14:40 [facility] 5.0 (missing) (missing) GFR - MDRD 2024-12-17 14:40 [facility] 58 (missing) The IDMS-traceable MDRD Study Equation has been validated extensively in and populations between the ages of 18 and 70 with impaired kidney function (eGFR < 60 mL/min/1.73m2) and has shown good performance for patients with all common causes of kidney disease. Although this equation has not been validated for patients older than 70, an MDRD-derived eGFR may still be a useful tool for providers caring for patients older than 70. References: http://www.nkdep. nih.gov/lab-evalu ation/gfr/creatin ine-stand ardization, last updated May 2011. TOTAL PROTEIN 2024-12-17 14:40 [facility] 7.6 g/dl As of September 2022 testing method has changed, this may include reference ranges. NEUTROPHILS # (AUTO) 2024-12-17 14:40 [facility] 8.1 10 3/ul (missing) ALT ALANINE AMINOTRANSFERASE 2024-12-17 14:40 [facility] 9 iu/l As of September 2022 testing method has changed, this may include reference ranges. CALCIUM 2024-12-17 14:40 [facility] 9.5 mg/dl As of September 2022 testing method has changed, this may include reference ranges. WHITE BLOOD COUNT 2024-12-17 14:40 [facility] 9.6 x10 3/ul (missing) MEAN CORPUSCULAR VOLUME 2024-12-17 14:40 [facility] 92.0 fl (missing) Result panel 6 WBC,URINE 2024-12-17 14:50 [facility] 0-3 /hpf (missing) UROBILINOGEN,URIN E 2024-12-17 14:50 [facility] 0.2 (NORMAL) e.u./dl (missing) SPECIFIC GRAVITY,URINE 2024-12-17 14:50 [facility] 1.020 (missing) (missing) PROTEIN,URINE 2024-12-17 14:50 [facility] 30 mg/dl (missing) PH,URINE 2024-12-17 14:50 [facility] 6.0 ph (missing) CLARITY,URINE 2024-12-17 14:50 [facility] CLEAR (missing) (missing) URINE MICROSCOPIC INDICATED? 2024-12-17 14:50 [facility] INDICATED (missing) (missing) LEUKOCYTE ESTERASE, URINE 2024-12-17 14:50 [facility] NEGATIVE (missing) (missing) NITRITE,URINE 2024-12-17 14:50 [facility] NEGATIVE (missing) (missing) OCCULT BLOOD,URINE 2024-12-17 14:50 [facility] NEGATIVE (missing) (missing) BILIRUBIN,URINE 2024-12-17 14:50 [facility] NEGATIVE (missing) Bilirubin can be influenced by color interference. Please correlate positive results with clinical presentation GLUCOSE, URINE (UA) 2024-12-17 14:50 [facility] NEGATIVE mg/dl (missing) KETONES,URINE (UA) 2024-12-17 14:50 [facility] NEGATIVE mg/dl (missing) SQUAMOUS EPITHELIAL CELL,UR 2024-12-17 14:50 [facility] NONE SEEN (missing) (missing) UR CULTURE IF IND 2024-12-17 14:50 [facility] NOT INDICATED (missing) (missing) BACTERIA,URINE 2024-12-17 14:50 [facility] None Seen /hpf (missing) RBC,URINE 2024-12-17 14:50 [facility] None Seen /hpf (missing) COLOR,URINE 2024-12-17 14:50 [facility] YELLOW (missing) URINE CLEAN CATCH Social History date description facility
[2024-12-18] MEDS ORDERED: ACETAMINOPHEN 1,000 MG/100 ML 1,000 MG/100 ML BAG IV PRN (20:02)
[2024-12-18] MEDS: APIXABAN 5 MG TABLET PO SCH (20:52)
[2024-12-19] MEDS: SIMETHICONE CHEW 80 MG TABLET PO PRN (00:37)
[2024-12-19] MEDS: CALCIUM CARBONATE CHEW 500 MG TABLET PO PRN (00:37)
--- NOTE | 2024-12-19 07:10 | PROVIDER PROGRESS NOTE ---
Progress Note Progress Note Progress Note: General Surgery Progress Note S: Slept well; No nausea or emesis; Passing stool and flatus from rectum; Tolerating a diet. O: VSS, afeb; Abdomen is soft and without tenderness A: Resolved recurrent partial SBO P: Patient may be discharged home today. It may be prudent to first check with Dr. Piper regarding the timing of colonoscopy for this patient as he was to have the procedure today as an out-patient. Mohsen Raymond MD, FACS General Surgery Service
[2024-12-19] MEDS: SODIUM/POTASSIUM/MAG SULFATES 354 ML PREP KIT PO SCH (09:07)
--- NOTE | 2024-12-19 09:20 | Discharge Summary ---
<Statement entered by Dave Cardenas DNP - 12/19/24 21:07> Patient was seen and examined by me with a separate encounter after being seen by [employer] student. I reviewed the student's documentation including patient history, physical examination, laboratory, imaging, clinical assessment and treatment plan. I have discussed the management of the patient with the student, and with the patient. There are no changes. Briefly, patient with recurrent SBO. Colonoscopy reveals diverticulitis, will need to start a course of antibiotics and follow-up with general surgery Discharge Summary Admit Date: 12/17/24 Discharge Date: 12/19/24 Code Status: Do Not Attempt Resuscitation DIAGNOSES Admission Diagnoses: Abdominal pain Discharge Diagnoses with Status of Each Condition: Recurrent SBO - Resolved Diverticulitis of large intestine without perforation or abscess without bleeding - Follow up with Dr. Piper in 1 week Atrial Fibrillation - Chronic HPI History of Present Illness: Obed Child is an 84 year-old male with PMH significant for HFrEF, CAD status post CABG, A-Fib on Xarelto, appendectomy (13 yoa), recurrent SBO, prostatectomy, lymphoma (remission), T2DM, HTN, and Hypercholesterolemia. He presented to ED for abdominal pain since 10am. Patient described the pain as a spastic dull pain localized to the epigastrum which cycles in 5 minute intervals. Belching and flatulating makes the pain better, nothing makes it worse. Precipitaing events that led to this pain are well known to the patient. He stated that he had dinner with friends Tuesday PM in which he ate a larger than normal meal with "ruffage". Patient had poor sleep. Pain started after breakfast at 10am and had progressed throughout the day, patient knew that he may have an SBO but waited it out to see if it would pass. Decided at 1pm that he needed to go to the hospital. Patient has a long history with small bowel obstructions with most recent hospitalization from 2 months ago, he stated this is 7th SBO to date. Typical resolution for previous SBO were around 1-2 day, all resolution has been with nonoperative treatment. Patient is currently not in pain which was relieved by pain meds given in the ED. NG tube was placed. Patient was admitted for observation for Small Bowel Obstruction. CONSULTS | PROCEDURES Consultations: General Surgery Procedures: Colonoscopy HOSPITAL COURSE Hospital Course: Patient was given pain medication and NG tube was placed in the ED prior to admission to observation for SBO. CT noted dilated distal small bowel with transition seen in the left lower abdomen concerning for SBO, which was consistent with clinical presentation and history. A plan was made to allow the patient to try and self decompress the bowels with NG tube, and if he did not have full resolution the following AM that we would escalate treatment to a gastrografin protocol. Patient SBO was unresolved the following morning and the gastrografin was initiated. Patient received 120ml gastrografin 66-10 solution orally which made transit from stomach to the colon within 2.5 hours. Impression from the XR SBFT challenge was that there was persistent mildly dilated loops of small bowel. Approx 5pm last night patient had his first bowel movement while in the hospital. Patient stated that he had relief of pain and pressure. NG tube was removed and he was placed on full diet. Later that evening patient has some abdominal pain which responded well to some pain medications. Patient spoke with Dr. Piper and Dr. Raymond and decision was made to proceed with the previously scheduled colonoscopy today. Colonoscopy revealed complicated diverticulitis involving chronic active infection, it noted tethered small bowel segment acting as a transition point for the recurrence of SBOs. There was also severe diverticulosis in the sigmoid, ascending and transverse colon. Purulent discharge seen in association with the diverticular opening in the sigmoid colon, indicating diverticulitis. Dr. Piper would like an appointment with patient within 1 week for f/u and possible surgical treatment, her office will be setting this up. Cipro 500mg PO BID and Flagyl 500mg PO BID until appointment with . Patient will be placed on a low residue diet indefinitely. ALLERGIES Allergies Allergy/AdvReac Type Severity Reaction Status Date / Time empagliflozin (From AdvReac Nausea Verified 12/13/24 15:02 Jardiance) milk AdvReac gas Verified 12/13/24 15:02 MEDICATIONS Ambulatory Orders Medication Instructions Recorded Confirmed nitroglycerin 0.4 mg sublingual 1 tab sublingual Q5M P RN Chest Pain 06/11/23 12/18/24 tablet ipratropium bromide 21 mcg (0.03 2 spray intranasal QI D #90 mL 03/12/24 12/17/24 %) nasal spray atorvastatin 40 mg tablet 40 mg PO DAILY 07/12/2409/05 metoprolol succinate 25 mg 25 mg PO DAILY 07/12/2409/05 tablet,extended release 24 hr omeprazole magnesium 20 mg 20 mg PO DAILY 07/12/2409/05 capsule,delayed release furosemide 20 mg tablet See Rx Instructions PO DAILY #180 08/16/24 12/17/24 tabs rivaroxaban 20 mg tablet (Xarelto) 20 mg PO QPM #90 ta bs 10/08/24 12/17/24 lisinopril 5 mg tablet 5 mg PO ONCE 10/23/24 peg 3350-electrolytes 236 240 ml PO Q10M #4,000 mL 12/0612/17/24 gram-22.74 gram-6.74 gram-5.86 gram solution (Golytely) oxybutynin chloride 5 mg 5 mg PO DAILY 12/18/2412/18 tablet,extended release 24 hr vitamin A-vitamin C-vit E-min 1 tab PO DAILY 12/18/24 12/18/24 tablet (Vision tablet) ciprofloxacin HCl 250 mg tablet 500 mg (2 x 250 mg) PO BID 20 days 12/19/24 #80 tabs metronidazole 250 mg tablet 500 mg (2 x 250 mg) PO TID WM 20 12/19/24 days #120 tabs PHYSICAL EXAM AT DISCHARGE Vital Signs: Vital Signs x48h Temp Pulse Resp BP Pulse Ox 12/19/24 13:09 36.5 C 59 L 16 117/49 L 99 12/19/24 12:43 36.4 C L 63 16 98/46 L 99 12/19/24 09:08 36.5 C 66 16 151/67 H 96 General Appearance: positive No acute distress and Alert Eyes Bilateral: positive Normal inspection, PERRL and EOMI Neck: positive Nml inspection Respiratory: positive Chest non-tender, No respiratory distress and Breath sounds nml Cardiovascular: positive No murmur, No gallop and Irregularly irregular Peripheral Pulses: positive 2+ Abdomen: positive Non-tender, No organomegaly, Nml bowel sounds and No distention Skin: positive Color nml Extremities: positive Non-tender, Full ROM and Nml appearance Neurologic/Psychiatric: positive Oriented x3 and Motor nml LABS 12/17/24 14:40 12/17/24 14:40 FOLLOW UP Follow Up: Patient will follow up with Dr. Piper in 1 week to for f/u and possible surgical treatment. Her office will make the appointment. Discharge Plan Discharge Patient Disposition: Home, Self Care Condition: Stable Medically Cleared Date:: 12/19/24 Prescriptions: New metronidazole 250 mg Tablet 500 mg PO TIDWM 20 Days Qty: 120 0RF ciprofloxacin HCl 250 mg Tablet 500 mg PO BID 20 Days Qty: 80 0RF Continued furosemide 20 mg tablet See Rx Instructions PO DAILY Qty: 180 1RF Rx Instructions: 1-2 daily in the morning for heart failure and swelling orally daily; peg 3350-electrolytes [Golytely] 236-22.74-6.74 -5.86 gram recon soln 240 ml PO Q10M Qty: 4000 0RF Rx Instructions: until fecal effluent is clear nitroglycerin 0.4 MG tablet, sublingual 1 tab sublingual Q5M PRN (Reason: Chest Pain) metoprolol succinate 25 mg tablet extended release 24 hr 25 mg PO DAILY atorvastatin 40 mg tablet 40 mg PO DAILY omeprazole magnesium 20 mg capsule,delayed release(DR/EC) 20 mg PO DAILY Rx Instructions: for acid reduction lisinopril 5 mg tablet 5 mg PO ONCE Patient Comments: Updated by [facility] 10/15/24 Rx Instructions: for blood pressure oxybutynin chloride 5 mg tablet extended release 24hr 5 mg PO DAILY Vision Tablet 1 tab PO DAILY ipratropium bromide 21 mcg (0.03 %) spray,non-aerosol 2 spray intranasal QID Qty: 90 3RF Rx Instructions: administer into each nostril Xarelto 20 mg tablet 20 mg PO QPM Qty: 90 3RF Activity Restrictions: No Restrictions Diet: Regular Health Concerns: He came in with small bowel obstruction. We attempted to manage this with just an NG tube, but this did not relieve it. We gave you a Gastrografin challenge which resolved your obstruction. You underwent colonoscopy while here, and She reports that she saw diverticulitis and a narrowing of the colon. She would like for you to follow-up with her in 2 weeks after being on antibiotics. I am sending you home with 2 antibiotics, metronidazole and ciprofloxacin. I would like for you to take these as directed until told otherwise. I would like for you to follow-up with the surgeon and with your PCP Print Language: Syrian Patient Instructions: Surg Dc Stand Alone Forms: PCP List Follow-up Care: Brooke Simon PA-C [Primary Care Provider, Family Practice] Vitals documented within 30 minutes of discharge?: Yes
[2024-12-19] MEDS: METOPROLOL SUCCINATE 25 MG TABLET PO SCH (09:23)
--- NOTE | 2024-12-19 10:15 | Preop H&P Attestation ---
Preop H&P Attestation Preop History & Physical Preop H&P Date: 11/20/24 History & Physical Reviewed and patient examined today.: Changes noted -: Patient readmitted for the 3rd time with SBO on 12/17/2024. Review of his admission CT shows that the obstruction is again at the point of small bowel that is tethered to the area of sigmoid colon where the prior diverticular abscess was, along with proximal fecalization of the small bowel. Now HD3, admitted to medicine and followed by Dr. Raymond, and SBO has resolved with NGT decompression, he is passing BM and abdominal pain has resolved. He would like to proceed with his elective colonoscopy which is scheduled for today - his stool is already fairly clear and he will do a bowel prep during the day for afternoon colonoscopy. As for recurrent SBO at same site - he would like to continue efforts at limited "ruffage" in his diet, chewing gum, and increased mobility/activity (he likes [employer]) to help with SBO prevention. We can discuss elective surgical intervention PRN after colonoscopy. Proceed with colonoscopy this afternoon. Spring Piper DO, FACS General Surgeon, [facility]
--- NOTE | 2024-12-19 11:57 | ANESTHESIA PROCEDURE NOTE ---
Pre-Anesthesia VS, & Labs Diagnosis Surgical Diagnosis:: Recurrent SBO Procedure Procedure: Colonoscopy Vitals Vital Signs: Temp Pulse Resp BP Pulse Ox 36.5 C 66 16 151/67 H 96 12/19/24 09:08 12/19/24 09:08 12/19/24 09:08 12/19/24 09:08 12/19/24 09:08 NPO NPO: Other Last Fluid Intake: prep as indicated Lab Results Current Lab Results: Laboratory Tests 12/17/24 14:40: WBC 9.6, RBC 4.12 L, Hgb 11.7 L, Hct 37.9 L, MCV 92.0, MCH 28.4, MCHC 30.9 L, RDW 15.2 H, Plt Count 232, MPV 10.8, Neut # (Auto) 8.1 H, Lymph # (Auto) 0.8 L, Mchenry # (Auto) 0.6, Eos # (Auto) 0.1, Baso # (Auto) 0.0, Absolute Nucleated RBC 0.00, Nucleated RBC % 0.0, Sodium 139, Potassium 4.2, Chloride 104, Carbon Dioxide 30, Anion Gap 5.0 L, BUN 16, Creatinine 1.2, Estimated GFR (MDRD) 58 L, Glucose 107 H, Calcium 9.5, Total Bilirubin 0.4, AST 10, ALT 9 L, A lkaline Phosphatase 150 H, Total Protein 7.6, Albumin 4.5, Globulin 3.1, Albumin/Globulin Ratio 1.5, Lipase 10 L Lab results reviewed: Yes 12/17/24 14:40 12/17/24 14:40 Meds/Allgy Home Medications Ambulatory Orders Medication Instructions Recorded Confirmed nitroglycerin 0.4 mg sublingual 1 tab sublingual Q5M P RN Chest Pain 06/11/23 12/18/24 tablet ipratropium bromide 21 mcg (0.03 2 spray intranasal QI D #90 mL 03/12/24 12/17/24 %) nasal spray atorvastatin 40 mg tablet 40 mg PO DAILY 07/12/2409/05 metoprolol succinate 25 mg 25 mg PO DAILY 07/12/2409/05 tablet,extended release 24 hr omeprazole magnesium 20 mg 20 mg PO DAILY 07/12/2409/05 capsule,delayed release furosemide 20 mg tablet See Rx Instructions PO DAILY #180 08/16/24 12/17/24 tabs rivaroxaban 20 mg tablet (Xarelto) 20 mg PO QPM #90 ta bs 10/08/24 12/17/24 lisinopril 5 mg tablet 5 mg PO ONCE 10/23/24 peg 3350-electrolytes 236 240 ml PO Q10M #4,000 mL 12/0612/17/24 gram-22.74 gram-6.74 gram-5.86 gram solution (Golytely) oxybutynin chloride 5 mg 5 mg PO DAILY 12/18/2412/18 tablet,extended release 24 hr vitamin A-vitamin C-vit E-min 1 tab PO DAILY 12/18/24 12/18/24 tablet (Vision tablet) Allergies Allergies Allergy/AdvReac Type Severity Reaction Status Date / Time empagliflozin (From AdvReac Nausea Verified 12/13/24 15:02 Jardiance) milk AdvReac gas Verified 12/13/24 15:02 PFSH Active Problems All Active Problems (Updated 12/17/24 @ 16:48 by Nura Kim MD) Small bowel obstruction (Acute) Lumbar radiculopathy (Acute) Frequent urination (Acute) Sciatica (Acute) Urinary incontinence (Acute) Abnormal computed tomography of sigmoid colon (Acute) Healthcare maintenance (Acute) Right lower lobe pulmonary nodule (Acute) Alcohol abuse (Acute) Hyperlipidemia (Acute) BPH (benign prostatic hyperplasia) (Acute) Macular degeneration (Acute) Gout (Acute) Vitamin D deficiency (Acute) Anemia (Acute) Severe malnutrition (Acute) Right thyroid nodule (Acute) Diffuse large B-cell lymphoma of lymph nodes of multiple regions (Acute) Atrial fibrillation (Acute) GERD (gastroesophageal reflux disease) (Acute) DM type 2 (diabetes mellitus, type 2) (Acute) HTN (hypertension) (Acute) Dyspnea on exertion (Acute) CAD (coronary artery disease) (Acute) Medical History Medical History (Updated 12/17/24 @ 16:48 by Nura Kim MD) Peripheral neuropathy Hx of adenomatous colonic polyps Congestive heart failure Dizziness Local reaction to bee sting Small bowel obstruction recurrent: 07/2024, 09/2024 Diverticulitis (~08/2023) perforated with abscess Surgical History Surgical History Hx of colonoscopy (~12/28/16) [facility] Dr. Ha mild diverticulosis . [facility] Dr. Horton 11/08/2012 2 benign TA S/P CABG x 2 (~05/2022) with 2 stents History of transurethral resection of prostate (~2011) Hx of hemorrhoidectomy (~1999) History of tonsillectomy History of appendectomy (~1953) Family History Family History (Updated 11/15/24 @ 10:26 by Fany Cortes MA) Other Family history unknown Social History Social History (Updated 12/17/24 @ 15:12 by Viktoria Vaughan, REJI) Smoking Status: Former smoker If you are a former smoker, when did you quit? (Date/Year): 40 years ago Number of Years Smoked: 31 How many cigarettes a day do you smoke? (20 cigarettes=1 Pk): 20 Second hand tobacco smoke exposure: Yes Do you dip or chew tobacco?: No Do you vape?: No Patient requests smoking cessation consult: No Initiate information on smoking cessation: No Living arrangement: At home Living Condition: Alone Support Person: Yes Has a Durable Power of Aluminum Can Collector for Health Care?: Yes DPOA on file?: No Has Health Care Directive?: Yes Health Care Directive on file?: No How many days per week?: 4 Level: Independent Do you feel safe in your home environment?: Yes History of physical, verbal, emotional, or financial abuse?: No ETOH Use: None Frequency: Daily Substance Use: denies use Are you sexually active?: No Retired: Yes Dates of Service: [id number] POLST Patient has POLST: No Anesthesia Exam (Expanded) Exam General: Alert and Oriented x3 Dental: Loose/Frag Mouth Openin Fingerbreadth Neck Mobility: Normal Mallampati classification: II Thyromental Distance: 4-6 cm Respiratory: Normal breath sounds Cardiovascular: Regular rate Exam Exam Vital Signs: Vital Signs x48h Temp Pulse Pulse Resp BP BP Pulse Ox 12/19/24 09:08 36.5 C 66 16 151/67 H 96 12/19/24 05:02 70 138/58 H Constitutional normal general appearance Neck/C-Spine cervical full ROM noted Respiratory breath sounds equal bilaterally Cardiovascular afib Plan Problem List (1) Small bowel obstruction: Plan: Patient was given an NG tube for decompression and pain meds while in the ED. Impression from CT noted dilated distal small bowel with transition seen in the left lower abdomen concerning for SBO, which is consistent with the presentation. Order: Consider Gastrografin Protocol if bowel obstruction is not reduced by the AM. Treatment: Continue Dilaudid for pain control (2) Atrial fibrillation: Plan: Patient's Afib is longstanding and is being managed with Xarelto (Rivaroxaban), patient will be not taking these medications pending outpatient colonoscopy that was already planned for tuesday. Treatment: Metroprolol 5mg q6h IV Qualifiers: Atrial fibrillation type: unspecified Qualified Code(s): I48.91 - Unspecified atrial fibrillation Plan Anesthesia Type: Total IV Consent for Procedure(s) Verified and Reviewed: Yes Code Status: Attempt Resuscitation ASA Classification ASA classification: 3-Severe systemic disease Is this case an emergency?: No
--- NOTE | 2024-12-19 13:04 | ANESTHESIA POST OP EVALUATION ---
Anesthesia Post Eval Post Anesthesia Eval Vitals: Last Vital Signs Temp 36.4 C L 12/19/24 12:43 Pulse 63 12/19/24 12:43 Resp 16 12/19/24 12:43 BP 98/46 L 12/19/24 12:43 Pulse Ox 99 12/19/24 12:43 CV Function Including HR & BP: Stable Pain Control: Satisfactory Nausea & Vomiting: Negative Mental Status: Baseline Respiratory Status: Airway Patent Hydration Status: Satisfactory Anesthesia Complications: None
[2024-12-19] MEDS: CIPROFLOXACIN 250 MG TABLET PO SCH (13:58)
[2024-12-19 16:23] VITALS: O2SAT 97
[2024-12-19 19:14] VITALS: BP 153/63; TEMP 97.9
== END 2024-12-19 18:55 | disposition home or self-care (01) | DRG 389 ==
LOC: ED 14:05 → MS3 14:05
PROVIDERS: ADMIT Physician Assistant Medical; ATTEND Physician Assistant Medical

== ENCOUNTER 2025-01-11 06:22 | Inpatient (IN) ==
--- NOTE | 2025-01-07 09:38 | CONSULTATION NOTE ---
Consultation Report: cardiac clearance from criminal justice instructor reviewed. xarelto to be held 4 days pre-op, prior to surgery PFS Active Problems All Active Problems (Updated 12/31/24 @ 14:07 by Spring Piper DO) Chronic HFrEF (heart failure with reduced ejection fraction) (Acute) Diverticulitis large intestine (Acute) Small bowel obstruction (Acute) Lumbar radiculopathy (Acute) Frequent urination (Acute) Sciatica (Acute) Urinary incontinence (Acute) Healthcare maintenance (Acute) Right lower lobe pulmonary nodule (Acute) Hyperlipidemia (Acute) BPH (benign prostatic hyperplasia) (Acute) Macular degeneration (Acute) Gout (Acute) Vitamin D deficiency (Acute) Anemia (Acute) Right thyroid nodule (Acute) Diffuse large B-cell lymphoma of lymph nodes of multiple regions (Acute) Atrial fibrillation (Acute) GERD (gastroesophageal reflux disease) (Acute) DM type 2 (diabetes mellitus, type 2) (Acute) HTN (hypertension) (Acute) CAD (coronary artery disease) (Acute) Medical History Medical History (Updated 12/31/24 @ 14:07 by Spring Piper DO) Alcohol abuse remission since 2021 Peripheral neuropathy Hx of adenomatous colonic polyps Congestive heart failure Dizziness Local reaction to bee sting Surgical History Surgical History (Updated 12/28/24 @ 09:20 by Fany Cortes MA) Hx of colonoscopy (~12/19/24) [facility] Dr. Piper path-Neg 12/28/[address] [facility] [address]. Ha mild diverticulosis . [facility] Dr. Horton 11/08/2012 2 benign TA S/P CABG x 2 (~05/2022) with 2 stents History of transurethral resection of prostate (~2011) Hx of hemorrhoidectomy (~1999) History of tonsillectomy History of appendectomy (~1953) Family History Family History (Updated 11/15/24 @ 10:26 by Fany Cortes MA) Other Family history unknown Social History Social History (Updated 12/17/24 @ 15:12 by Viktoria Vaughan RN) Smoking Status: Former smoker If you are a former smoker, when did you quit? (Date/Year): 40 years ago Number of Years Smoked: 31 How many cigarettes a day do you smoke? (20 cigarettes=1 Pk): 20 Second hand tobacco smoke exposure: Yes Do you dip or chew tobacco?: No Do you vape?: No Patient requests smoking cessation consult: No Initiate information on smoking cessation: No Living arrangement: At home Living Condition: Alone Support Person: Yes Has a Durable Power of Can Tester for Health Care?: Yes DPOA on file?: No Has Health Care Directive?: Yes Health Care Directive on file?: No How many days per week?: 4 Level: Independent Do you feel safe in your home environment?: Yes History of physical, verbal, emotional, or financial abuse?: No ETOH Use: None Frequency: Daily Substance Use: denies use Are you sexually active?: No Retired: Yes Dates of Service: [id number] POLST Patient has POLST: No Meds/Allgy Home Medications Ambulatory Orders Medication Instructions Recorded Confirmed nitroglycerin 0.4 mg sublingual 1 tab sublingual Q5M P RN Chest Pain 06/11/23 12/31/24 tablet ipratropium bromide 21 mcg (0.03 2 spray intranasal QI D #90 mL 03/12/24 12/31/24 %) nasal spray atorvastatin 40 mg tablet 40 mg PO DAILY 07/12/2412/13 metoprolol succinate 25 mg 25 mg PO DAILY 07/12/24 tablet,extended release 24 hr omeprazole magnesium 20 mg 20 mg PO DAILY 07/12/24 capsule,delayed release furosemide 20 mg tablet See Rx Instructions PO DAILY #180 08/16/24 12/31/24 tabs rivaroxaban 20 mg tablet (Xarelto) 20 mg PO QPM #90 ta bs 10/08/24 12/31/24 lisinopril 5 mg tablet 5 mg PO ONCE 10/23/24 peg 3350-electrolytes 236 240 ml PO Q10M #4,000 mL 12/0612/31/24 gram-22.74 gram-6.74 gram-5.86 gram solution (Golytely) oxybutynin chloride 5 mg 5 mg PO DAILY 12/18/2412/31 tablet,extended release 24 hr vitamin A-vitamin C-vit E-min 1 tab PO DAILY 12/18/24 12/31/24 tablet (Vision tablet) ciprofloxacin HCl 250 mg tablet 500 mg (2 x 250 mg) PO BID 20 days 12/19/24 12/31/24 #80 tabs metronidazole 250 mg tablet 500 mg (2 x 250 mg) PO TID WM 20 12/19/24 12/31/24 days #120 tabs Allergies Allergies Allergy/AdvReac Type Severity Reaction Status Date / Time empagliflozin (From AdvReac Nausea Verified 12/31/24 09:38 Jardiance) milk AdvReac gas Verified 12/31/24 09:38
[~2025-01-11 06:22] MED LIST: GABAPENTIN 100 MG CAPSULE ONE
[2025-01-11] MEDS: ACETAMINOPHEN 500 MG TABLET PO SCH (06:46)
[2025-01-11] MEDS: GABAPENTIN 300 MG CAPSULE PO SCH (06:47)
[2025-01-11] MEDS: LACTATED RINGERS 1,000 ML IV PRN (07:03)
--- NOTE | 2025-01-11 07:20 | ANESTHESIA PROCEDURE NOTE ---
Pre-Anesthesia VS, & Labs Diagnosis Surgical Diagnosis:: Chronic diverticulitis, recurrent SBO Procedure Procedure: Lap hand assisted sigmoid colectomy Vitals Vital Signs: Temp Pulse Resp BP Pulse Ox 36.0 C L 78 16 148/68 H 98 01/11/25 06:49 01/11/25 06:49 01/11/25 06:49 01/11/25 06:49 01/11/25 06:49 NPO NPO: >8 hours Lab Results Current Lab Results: Laboratory Tests 01/11/25 06:51: POC Whole Bld Glucose 117 Lab results reviewed: Yes Meds/Allgy Home Medications Ambulatory Orders Medication Instructions Recorded Confirmed nitroglycerin 0.4 mg sublingual 1 tab sublingual Q5M P RN Chest Pain 06/11/23 01/11/25 tablet ipratropium bromide 21 mcg (0.03 2 spray intranasal QI D #90 mL 03/12/24 01/11/25 %) nasal spray atorvastatin 40 mg tablet 40 mg PO DAILY 07/12/2412/14 metoprolol succinate 25 mg 25 mg PO DAILY 07/12/24 tablet,extended release 24 hr omeprazole magnesium 20 mg 20 mg PO DAILY 07/12/24 capsule,delayed release furosemide 20 mg tablet See Rx Instructions PO DAILY #180 08/16/24 01/11/25 tabs rivaroxaban 20 mg tablet (Xarelto) 20 mg PO QPM #90 ta bs 10/08/24 01/08/25 lisinopril 5 mg tablet 5 mg PO ONCE 10/23/24 peg 3350-electrolytes 236 240 ml PO Q10M #4,000 mL 12/0601/11/25 gram-22.74 gram-6.74 gram-5.86 gram solution (Golytely) ciprofloxacin HCl 250 mg tablet 500 mg (2 x 250 mg) PO BID 20 days 12/19/24 01/11/25 #80 tabs metronidazole 250 mg tablet 500 mg (2 x 250 mg) PO TID WM 20 12/19/24 01/11/25 days #120 tabs aspirin 81 mg capsule 81 mg PO DAILY 01/08/2512/14 multivitamin (Daily Multi-Vitamin 1 tab PO DAILY 10/28 /25 10/31/25 tablet) ondansetron 4 mg disintegrating 4 mg PO Q8H PRN nausea and vomiting 01/08/25 01/11/25 tablet Allergies Allergies Allergy/AdvReac Type Severity Reaction Status Date / Time empagliflozin (From AdvReac Nausea Verified 01/11/25 07:10 Jardiance) milk AdvReac gas Verified 01/11/25 07:10 PFSH Active Problems All Active Problems Chronic HFrEF (heart failure with reduced ejection fraction) (Acute) Diverticulitis large intestine (Acute) Small bowel obstruction (Acute) Lumbar radiculopathy (Acute) Frequent urination (Acute) Sciatica (Acute) Urinary incontinence (Acute) Healthcare maintenance (Acute) Right lower lobe pulmonary nodule (Acute) Hyperlipidemia (Acute) BPH (benign prostatic hyperplasia) (Acute) Macular degeneration (Acute) Gout (Acute) Vitamin D deficiency (Acute) Anemia (Acute) Right thyroid nodule (Acute) Diffuse large B-cell lymphoma of lymph nodes of multiple regions (Acute) Atrial fibrillation (Acute) GERD (gastroesophageal reflux disease) (Acute) DM type 2 (diabetes mellitus, type 2) (Acute) HTN (hypertension) (Acute) CAD (coronary artery disease) (Acute) Medical History Medical History Alcohol abuse remission since 2021 Peripheral neuropathy Hx of adenomatous colonic polyps Congestive heart failure Dizziness Local reaction to bee sting Surgical History Surgical History Hx of colonoscopy (~12/19/24) [facility] Dr. Piper path-Neg 12/28/[address] [facility] [address] Ha mild diverticulosis . [facility] Dr. Horton 11/08/2012 2 benign TA S/P CABG x 2 (~05/2022) with 2 stents History of transurethral resection of prostate (~2011) Hx of hemorrhoidectomy (~1999) History of tonsillectomy History of appendectomy (~1953) Family History Family History Other Family history unknown Social History Social History Smoking Status: Former smoker If you are a former smoker, when did you quit? (Date/Year): 40 years ago Number of Years Smoked: 31 How many cigarettes a day do you smoke? (20 cigarettes=1 Pk): 20 Second hand tobacco smoke exposure: Yes Do you dip or chew tobacco?: No Do you vape?: No Patient requests smoking cessation consult: No Initiate information on smoking cessation: No Living arrangement: At home Living Condition: Alone Support Person: Yes Has a Durable Power of Razor Grinder for Health Care?: Yes DPOA on file?: No Has Health Care Directive?: Yes Health Care Directive on file?: No How many days per week?: 4 Level: Independent Do you feel safe in your home environment?: Yes History of physical, verbal, emotional, or financial abuse?: No ETOH Use: None Frequency: Daily Substance Use: denies use Are you sexually active?: No Retired: Yes Dates of Service: [id number] POLST Patient has POLST: No Results Echo Results Echo Results: Report reviewed Anesthesia Exam (Expanded) Exam General: Alert, Oriented x3 and No acute distress Dental: WNL Mouth Openin Fingerbreadth Neck Mobility: Normal Mallampati classification: II Thyromental Distance: 4-6 cm Respiratory: Lungs clear and Normal breath sounds Cardiovascular: Regular rate Mental/Cognitive Status: Alert/Oriented X3 Cognitive Status: Within normal limits Exam Exam Vital Signs: Vital Signs x48h Temp Pulse Resp BP Pulse Ox 01/11/25 06:49 36.0 C L 78 16 148/68 H 98 Constitutional normal general appearance Neck/C-Spine cervical full ROM noted Respiratory breath sounds equal bilaterally and normal respiratory effort Cardiovascular normal heart rate noted LVEF 35-40% Plan Plan Anesthesia Type: General Consent for Procedure(s) Verified and Reviewed: Yes Code Status: Attempt Resuscitation ASA Classification ASA classification: 3-Severe systemic disease Is this case an emergency?: No
[2025-01-11] MEDS ORDERED: NALOXONE 0.4 MG/ML VIAL IVP PRN (07:22)
[2025-01-11] MEDS ORDERED: ePHEDrine 50 MG/ML VIAL IVP PRN (07:22)
[2025-01-11] MEDS ORDERED: ATROPINE ABBOJECT 1 MG/10 ML SYRINGE IVP PRN (07:22)
[2025-01-11] MEDS ORDERED: METOCLOPRAMIDE 10 MG/2 ML VIAL IVP PRN (07:22)
[2025-01-11] MEDS ORDERED: MORPHINE 2 MG/ML CARPUJECT IVP PRN (07:22)
[2025-01-11] MEDS ORDERED: fentaNYL 100 MCG/2 ML VIAL IVP PRN (07:22)
[2025-01-11] MEDS ORDERED: fentaNYL 100 MCG/2 ML VIAL ONE (07:32)
[2025-01-11] MEDS ORDERED: ROCURONIUM 50 MG/5 ML VIAL ONE ×3 (07:32→10:12)
[2025-01-11] MEDS ORDERED: MIDAZOLAM 2 MG/2 ML VIAL ONE (07:32)
[2025-01-11] MEDS ORDERED: LIDOCAINE-PF 2% 10 ML AMP SUBQ ONE (07:33)
[2025-01-11] MEDS ORDERED: PROPOFOL 200 MG/20 ML VIAL IVP ONE (07:33)
[2025-01-11] MEDS ORDERED: BUPIVACAINE 0.25% PF 10 ML VIAL ONE (07:38)
[2025-01-11] MEDS ORDERED: LIDOCAINE 1%-EPI 1:100000 20 ML MDV ONE (07:38)
--- NOTE | 2025-01-11 07:48 | Preop H&P Attestation ---
Preop H&P Attestation Preop History & Physical Preop H&P Date: 12/31/24 History & Physical Reviewed and patient examined today.: No change -: Patient seen in preoperative holding area. No changes to the H&P with date referenced above. Proceed to OR for lap sigmoid colectomy and possible small bowel resection. Spring Piper DO, FACS General Surgeon, [place]
[2025-01-11] MEDS ORDERED: LACTATED RINGERS 1,000 ML IV SCH (08:00)
[2025-01-11] MEDS ORDERED: ALBUMIN 25% 12.5 GM/50 ML VIAL IV STA (08:00)
[2025-01-11] MEDS ORDERED: ceFAZolin (2G) 2 GM in SODIUM CHLORIDE 0.9% MINIBAG 100 ML IV ONE (08:26)
[2025-01-11] MEDS ORDERED: ONDANSETRON 4 MG/2 ML VIAL ONE ×2 (09:33→15:46)
[2025-01-11] MEDS ORDERED: DEXAMETHASONE 4 MG/ML VIAL ONE ×2 (09:33→13:00)
[2025-01-11] MEDS ORDERED: MAGNESIUM SULFATE 1 GM/2 ML VIAL ONE (13:04)
[2025-01-11] MEDS ORDERED: ACETAMINOPHEN 1,000 MG/100 ML 1,000 MG/100 ML BAG IV ONE (13:04)
[2025-01-11] MEDS ORDERED: PHENYLEPHRINE HCL 0.5 MG/5 ML AMPULE ONE (13:14)
[2025-01-11] MEDS ORDERED: ePHEDrine 50 MG/ML VIAL IVP ONE (13:53)
[2025-01-11] MEDS ORDERED: ROPIVACAINE 0.5% PF 20 ML VIAL ONE (14:18)
[2025-01-11] MEDS ORDERED: SUGAMMADEX 200 MG/2 ML VIAL IVP ONE (14:21)
--- NOTE | 2025-01-11 14:47 | OPERATIVE REPORT ---
Operative Report General Procedure Data: Operation Date: 01/11/25 07:30 Proposed Procedures p Laparoscopic Hand assisted sigmoid colectomy, Possible small bowel resection(Not Applicable) - Spring Piper DO Actual Procedures p Laparoscopic Hand assisted sigmoid colectomy with primary anastomosis Laparoscopic mobilization of the splenic flexure Open extensive lysis of adhesions, > 90 minutes Open small bowel resection with primary anastomosis - Spring Piper DO Pre-Op Diagnosis: CHRONIC DIVERTICULITIS AND RECURRENT SMALL BOWEL OBSTRUCTION Anesthesia Type General Case Staff Anesthesia Provider: Toribio Lora Anesthesia Provider: Tania Cotton Assisting Provider: Vu Ray Case Times Procedure Start: 01/11/25 08:59 Time out: 01/11/25 08:58 WOUND CLASS 3 Pre-Op Diagnosis: chronic sigmoid diverticulitis and recurrent small bowel obstructions Post Op Diagnosis: Chronic sigmoid diverticulitis, small bowel adhesions with internal hernia Procedure Note Intake, IV Amount (ml): 2,000 Estimated Blood Loss (ml): 300 Output, Urine Amount (ml): 150 Drain/Tube Type: Iggy Chin round drain Pathology: 1) Sigmoid colon with perforation, stitch romero distal + anastomotic donuts 2) Small bowel anastomosis Indications: 84yoM with episode of Hinchey 2 diverticulitis in August 2024, with subsequent persistent thickening of sigmoid colon and pericolonic fluid on CT suggestive of chronic diverticulitis which was confirmed on 12/19/2024 colonoscopy, and malignancy also ruled out. He has also had recurrent small bowel obstructions since then with tethering of small bowel to the sigmoid on both cross-sectional imaging and visible point of sigmoid tethering on colonoscopy. It is now clear, from most recent admission for SBO, review of CT scans from multiple admission, and the recent colonoscopy, that the recurrent SBOs are directly related to small bowel involvement of his chronic smoldering diverticulitis. Thus, I have recommended surgical intervention, involving sigmoid colectomy for the diverticulitis, and possible resection of involved sm all bowel segment if deemed necessary intraoperatively. Findings: 1) Chronic diverticulitis with sigmoid colon densely adherent to the left lateral pelvic wall; resected and anastomosed with primary colorectal 31mm EEA stapled anastomosis with negative leak test. 2) EXTENSIVE small bowel adhesions throughout the entire abdomen. DENSE adhesions from ileum to sigmoid colon and anterior pelvic wall. Almost all of the small bowel was located within the left upper quadrant, posterior to and superior to the transverse colon; the small bowel adhesions resulted an internal hernia of small bowel around its own adhesions; several loops of small bowel were DENSELY adherent to each other, one large enterotomy was made in the takedown of this dense knot of multiple loops - this enterotomy was resected and primarily anastomosed with a side to side functional end to end 75mm blue load DELROY stapler and within the proximal ileum. One area of deserosalized small bowel was oversewn. One small (<1cm) colotomy in the transverse colon was closed in 2 layers. 3) 19F round drain left in the pelvis 4) NGT and copeland both left in at end of case given very extensive lysis of adhesions and two anastomoses Complications: none Other Other Information/Narrative: The patient was met in the preoperative holding area where all questions and concerns were confirmed, he had completed his preoperative bowel prep and been maintained on Cipro Flagyl prior to surgery. He had held his anticoagulation appropriately. Consent was confirmed and he was brought to the operating room and placed supine on the operating room table where universal protocol was observed throughout. General anesthesia with an endotracheal tube was induced by the anesthesia service. The patient was positioned in the low lithotomy position with the fin stirrups and both arms tucked. A Copeland catheter was placed. The abdomen was clipped prepped and draped in standard sterile fashion, the perineum was also prepped and draped. Ancef and Flagyl were given prior to the incision. A final timeout was performed with all members of the team being in agreement. An 8 cm lower midline incision was made after injecting local anesthetic, for positioning of the hand-assisted GelPort. The skin was incised sharply and the subcutaneous tissues and fascia divided with Bovie electrocautery. The peritoneum was entered sharply and opened widely with electrocautery. Immediately adhesions of omentum and bowel were encountered to the anterior abdominal wall, and these were taken down sharply to allow placement of the HandPort. The wound protector portion of the HandPort was placed. A 5 mm port was placed with intra-abdominal hand assist in the epigastric midline. The GelPort was attached and the abdomen was insufflated with CO2 gas to a pressure of 15 mmHg which the patient tolerated well. Two additional ports were placed under direct visualization: An 11 mm port in the left left lower quadrant and a 5 mm port in the right lower quadrant. The abdomen was inspected, and dense adhesions were seen to the anterior abdominal wall in the pelvis and the abdominal wall in the right lower quadrant. Attention was first directed towards mobilizing the left colon. The patient was rotated with the left side up and placed in reverse Trendelenburg position. Laparoscopic scissors with electrocautery cord attachment and LigaSure device were both used to mobilize the descending and proximal sigmoid colon away from the left lateral abdominal wall. While doing so it was often difficult to determine if the bowel being mobilized was small bowel or descending colon, as both were involved, and adherent to each other, as well as both adherent to the left lateral abdominal wall. Drought's fascia and the left kidney were left in situ while the bowel was mobilized medially. The splenic flexure of the transverse colon was mobilized away from the spleen. Adhesions posterior to the inferior pole of the spleen were taken down laparoscopically. Again while mobilizing the splenic flexure, both small bowel and colon were seen with chronic adhesions involving both small and large bowel as well as other abdominal structures. Having gained length on the descending colon attention was then directed into the pelvis and the patient was positioned in Trendelenburg position. Attention was directed laparoscopically towards adhesiolysis of the adhesions to the anterior abdominal wall in the pelvis, which included both omentum and loops of small bowel. Efforts at mobilizing the densely adhesed sigmoid colon off the left pelvic wall were very difficult, the adhesions were like cement. While mobilizing the sigmoid colon off the wall, 1 colotomy less than 1 cm was resulted. At this point it was felt that the maximal benefit of laparoscopic dissection had been reached, and I decided to proceed with the remainder of the pelvic dissection in an open fashion. The gel HandPort and the trocars were removed and the abdomen desufflated. In an open fashion the remainder of the sigmoid colon was mobilized away from the lateral abdominal sidewall. The left ureter was not encountered during this dissection. Again, to say that the adhesions were dense was an understatement. The colotomy that resulted from the dissection was quickly oversewn to control contamination. Ultimately the colon was able to be mobilized down to the rectum at the peritoneal reflection. The sigmoid colon was divided proximal to the area of chronic disease with a DELROY blue load stapler 75 mm. The sigmoid mesentery was divided close to the colon with the LigaSure device. The rectum was transected just above the peritoneal reflection with a contour stapler. The specimen was then removed from the abdomen and a stitch was used to renetta the distal aspect of the sigmoid colon and it was passed off the field for pathology. I then began running the small bowel to evaluate for any potential enterotomies from the adhesiolysis thus far away from the sigmoid colon and pelvic anterior wall, as well as to rule out any other sites of obstruction related to the patient's recurrent small bowel obstructions. Quickly discovered while running the small bowel from the cecum proximally that the bowel ran directly into the left upper quadrant with multiple dense interloop adhesions. Taking down all these adhesions required extensive adhesiolysis, adhesions were so dense that a scalpel was often used to come through them. It was seen that the adhesions had resulted in a small bowel internal hernia around interloop adhesions. Overall the small bowel adhesiolysis took approximately 2 hours, but finally resulted in being able to freely run the entirety of the small bowel from the ileocecal valve back to the ligament of Treitz. As a result of the extensive adhesiolysis through chronic dense adhesions, there was 1 large enterotomy within the proximal ileum that required small bowel resection. The bowel was divided proximally and distally to the enterotomy with a DELROY blue load 75 mm stapler. And then anastomosed in a [id number] functional end-to-end fashion with the same stapler. The common enterotomy was closed with a stapler and the lumen inspected and noted to be of adequate diameter. Another area of deserosalized jejunum was oversewn with 3-0 silk Lembert sutures. There was 1 colotomy in the transverse colon that measured less than 1 cm that was closed with a running 3-0 Vicryl suture followed by 3-0 silk Lembert sutures. After freeing the entirety of the small bowel and placing it in the patient's right abdomen, as well as repairing the enterotomies and deserosalized areas of small bowel, small bowel was run 1 final time ensuring no obstructions, twisting or additional enterotomies. Attention was then directed toward creating the colorectal anastomosis. I was able to gain additional length from the splenic flexure after removing all of the small bowel from the left upper quadrant, and the distal end of the transected proximal sigmoid colon reached into the pelvis with no tension. The pursestring device was used to place a 3-0 Prolene suture at the distal end of the transected colon, and the staple line was cut off sharply. The anvil of a 31 mm EEA stapler was placed into the opened end of the sigmoid colon and secured with the Prolene suture. Dr. Ray then went to the perineal approach and advanced serial dilators up to size 31 mm transanally and up to the top of the stapled rectum. He then advanced the 31 mm EEA stapler with my direct visualization into the pelvis and deployed the spike. The anvil from the sigmoid colon was attached to the spike ensuring no twisting of the descending colon. The stapler was then closed by Dr. Ray 2 silk stay sutures were placed across the anastomosis, and the stapler was fired. The stapler was removed and the proctoscope exam advanced transanally. There is no bleeding intraluminally from the anastomosis. The rectum was insufflated from the proctoscope with the anastomosis submerged in normal saline in the pelvis, and the leak test was negative.The proctoscope was removed. The abdomen was then irrigated with 3 L of warm normal saline. There was no active bleeding. There had been spillage of bile from the ileal enterotomy, however the irrigant ran clear at the conclusion of the case.Everyone then changed their gowns and gloves and proceeded with closure using a closing tray. A 19 Taj[place] round drain was placed in the pelvis and brought out through the right lower quadrant trocar incision and secured with 2-0 nylon. The fascia of the left lower quadrant 11 mm trocar site was closed with a [id number] 0 Vicryl suture. The midline fascia was closed with 0 PDS looped suture x 2. The subcutaneous tissues were irrigated. The skin at the midline and the left lower quadrant trocar site was closed with meli. Silver dressing was applied to the midline and dry gauze dressings were applied to the left lower quadrant incision as well as the drain site. All sponge and needle counts were correct at the conclusion of the case. An NG tube which had been confirmed in good position within the stomach manually while the stomach was open as well as the Copeland were left in place at the conclusion of the case given the extensive adhesiolysis, manipulation of both small and large bowel, as well as 2 anastomoses. The patient tolerated the procedure well with no complications. The presence of a laboratory chemical assistant surgeon was necessary to provide exposure, tissue retraction, to assist in in suture control of vascular structures, and to facilitate fascial and skin closure during various portions of the operative procedure. The SENIOR [employer]BILE APPLICATION DEVELOPER performed bilateral Tap blocks. The patient was then transferred to the PACU in good condition. Spring Piper DO, [facility] General Surgeon, [place]
--- OUTSIDE RECORDS SUMMARY | 2025-01-11 15:01 | EXTERNAL MEDICAL SUMMARY RPT | Continuity of Care Document ---
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 [facility] 2024-10-13 09:30 Unspecified atrial fibrillation [facility] 2024-10-13 09:30 Unspecified intestin al obstruction, unspecified as to partial versus complete obstruction [facility] 2024-10-13 09:31 Type 2 diabetes mellitus withou t complications [facility] 2024-10-13 09:31 Essential (primary) hypertensio n [facility] 2024-10-13 09:31 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 [facility] 2024-10-13 09:31 Unspecified atrial fibrillation [facility] 2024-10-13 09:31 Unspecified intestin al obstruction, unspecified as to partial versus complete obstruction [facility] 2024-10-13 09:34 Type 2 diabetes mellitus withou t complications [facility] 2024-10-13 09:34 Essential (primary) hypertensio n [facility] 2024-10-13 09:34 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 [facility] 2024-10-13 09:34 Unspecified atrial fibrillation [facility] 2024-10-13 09:34 Unspecified intestin al obstruction, unspecified as to partial versus complete obstruction [facility] 2024-10-13 09:55 Type 2 diabetes mellitus withou t complications [facility] 2024-10-13 09:55 Essential (primary) hypertensio n [facility] 2024-10-13 09:55 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 [facility] 2024-10-13 09:55 Unspecified atrial fibrillation [facility] 2024-10-13 09:55 Unspecified intestin al obstruction, unspecified as to partial versus complete obstruction [facility] 2024-10-13 09:57 Type 2 diabetes mellitus withou t complications [facility] 2024-10-13 09:57 Essential (primary) hypertensio n [facility] 2024-10-13 09:57 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 [facility] 2024-10-13 09:57 Unspecified atrial fibrillation [facility] 2024-10-13 09:57 Unspecified intestin al obstruction, unspecified as to partial versus complete obstruction [facility] 2024-10-13 10:54 Type 2 diabetes mellitus withou t complications [facility] 2024-10-13 10:54 Essential (primary) hypertensio n [facility] 2024-10-13 10:54 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 [facility] 2024-10-13 10:54 Unspecified atrial fibrillation [facility] 2024-10-13 10:54 Unspecified intestin al obstruction, unspecified as to partial versus complete obstruction [facility] 2024-10-15 09:39 Type 2 diabetes mellitus withou t complications [facility] 2024-10-15 09:39 Essential (primary) hypertensio n [facility] 2024-10-15 09:39 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 [facility] 2024-10-15 09:39 Unspecified atrial fibrillation [facility] 2024-10-15 09:39 Unspecified intestin al obstruction, unspecified as to partial versus complete obstruction [facility] 2024-10-15 09:39 Constipation, unspecified [facility] 2024-10-24 08:10 Type 2 diabetes mellitus withou t complications [facility] 2024-10-24 08:10 Essential (primary) hypertensio n [facility] 2024-10-24 08:10 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 [facility] 08:10 Unspecified atrial fibrillation [facility] 2024-10-24 08:10 Heart failure, unspecified [facility] 2024-10-24 08:10 Unspecified intestin al obstruction, unspecified as to partial versus complete obstruction [facility] 2024-10-24 08:10 Constipation, unspecified Critical [facility] hospital 2024-10-24 08:10 Disease of digestive system, un specified [facility] 2024-10-24 08:10 Dyspnea, unspecified [facility] 2024-10-24 08:10 Shortness of breath [facility] 2024-10-24 08:10 Unspecified abdominal pain [facility] 2024-10-24 08:10 Nausea with vomiting, unspecifi ed [facility] 2024-10-24 08:10 Edema, unspecified [facility] 2024-11-07 11:43 Diffuse large B-cell lymphoma, lymph nodes of multiple sites [facility] 2024-11-07 11:43 Type 2 diabetes mellitus withou t complications [facility] 2024-11-07 11:43 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 [facility] 2024-11-07 11:43 Unspecified intestin al obstruction, unspecified as to partial versus complete obstruction [facility] 2024-11-07 11:43 [facility]iculopathy, [facility] 2024-[facility]-07 16:29 Diffuse large B-cell lymphoma, lymph nodes of multiple sites [facility] 2024-11-07 16:29 Type 2 diabetes mellitus withou t complications [facility] 2024-11-07 16:29 Essential (primary) hypertensio n [facility] 2024-11-07 16:29 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 2024-11-07 16:29 Unspecified intestin al obstruction, unspecified as to partial versus complete obstruction [facility] 2024-11-07 16:29 Constipation, unspecified [facility] 2024-11-07 16:29 Disease of digestive system, un specified [facility] 2024-11-07 16:29 Radiculopathy, lumbar region [facility] 2024-11-07 16:29 Dyspnea, unspecified [facility] 2024-11-07 16:29 Shortness of breath [facility] 2024-11-07 16:29 Unspecified abdominal pain [facility] 2024-11-07 16:29 Nausea with vomiting, unspecifi ed [facility] 2024-11-07 16:29 Edema, unspecified [facility] 2024-11-21 13:01 Type 2 diabetes mellitus withou t complications [facility] 2024-11-21 13:01 Essential (primary) hypertensio n [facility] 2024-11-21 13:01 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 [facility] 2024-11-21 13:01 Unspecified atrial fibrillation [facility] 2024-11-21 13:01 Heart failure, unspecified [facility] 2024-11-21 13:01 Unspecified intestin al obstruction, unspecified as to partial versus complete obstruction [facility] 2024-11-21 13:01 Constipation, unspecified Critical access hospital 2024-11-21 13:01 Disease of digestive system, un specified [facility] 2024-11-21 13:01 Dyspnea, unspecified [facility] 2024-11-21 13:01 Shortness of breath [facility] 2024-11-21 13:01 Unspecified abdominal pain [facility] 2024-11-21 13:01 Nausea with vomiting, unspecifi ed [facility] 2024-11-21 13:01 Edema, unspecified [facility] 2024-12-17 21:09 Unspecified intestin al obstruction, unspecified as to partial versus complete obstruction [facility]-17 23:04 Unspecified atrial fibrillation [facility] 2024-12-17 23:04 Unspecified intestin al obstruction, unspecified as to partial versus complete obstruction [facility] 2024-12-18 08:21 Type 2 diabetes mellitus withou t complications [facility] 2024-12-18 08:21 Essential (primary) hypertensio n [facility] 2024-12-18 08:21 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 [facility] 2024-12-18 08:21 Unspecified atrial fibrillation [facility] 2024-12-18 08:21 Heart failure, unspecified [facility] 2024-12-18 08:21 Unspecified intestin al obstruction, unspecified as to partial versus complete obstruction [facility] 2024-12-18 08:21 Constipation, unspecified Critical access hospital 2024-12-18 08:21 Disease of digestive system, un specified [facility] 2024-12-18 08:21 Dyspnea, unspecified [facility] 2024-12-18 08:21 Shortness of breath [facility] 2024-12-18 08:21 Unspecified abdominal pain [facility] 2024-12-18 08:21 Nausea with vomiting, unspecifi ed [facility] 2024-12-18 08:21 Edema, unspecified [facility] 2024-12-18 19:24 Unspecified atrial fibrillation [facility] 2024-12-18 19:24 Unspecified intestin al obstruction, unspecified as to partial versus complete obstruction [facility] 2024-12-19 08:32 Unspecified atrial fibrillation [facility] 2024-12-19 08:32 Unspecified intestin al obstruction, unspecified as to partial versus complete obstruction [facility] 2024-12-19 09:20 Unspecified atrial fibrillation [facility] 2024-12-19 09:20 Unspecified intestin al obstruction, unspecified as to partial versus complete obstruction [facility] 2024-12-19 13:33 Unspecified atrial fibrillation [facility] 2024-12-19 13:33 Unspecified intestin al obstruction, unspecified as to partial versus complete obstruction [facility] 2024-12-19 14:21 Unspecified atrial fibrillation [facility] 2024-12-19 14:21 Unspecified intestin al obstruction, unspecified as to partial versus complete obstruction [facility] 2024-12-19 19:14 Unspecified atrial fibrillation [facility] 2024-12-19 19:14 Unspecified intestin al obstruction, unspecified as to partial versus complete obstruction [facility] 2024-12-25 15:52 Diffuse large B-cell lymphoma, lymph nodes of multiple sites [facility] 2024-12-26 00:04 Diffuse large B-cell lymphoma, lymph nodes of multiple sites [facility] 2024-12-26 10:26 Unspecified atrial fibrillation [facility] 2024-12-26 10:26 Unspecified intestin al obstruction, unspecified as to partial versus complete obstruction [facility] 2024-12-26 10:26 Upper abdominal pain, unspecifi ed [facility] 2024-12-26 10:52 Unspecified atrial fibrillation [facility] 2024-12-26 10:52 Unspecified intestin al obstruction, unspecified as to partial versus complete obstruction [facility] 2024-12-26 10:52 Upper abdominal pain, unspecifi ed [facility] 2024-12-27 09:42 Diffuse large B-cell lymphoma, lymph nodes of multiple sites [facility] 2024-12-27 09:42 Nontoxic single thyroid nodule [facility] 2024-12-27 09:42 Type 2 diabetes mellitus withou t complications [facility] 2024-12-27 09:42 Essential (primary) hypertensio n [facility] 2024-12-27 09:42 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 [facility] 2024-12-27 09:42 Unspecified atrial fibrillation [facility] 2024-12-27 09:42 Heart failure, unspecified [facility] 2024-12-27 09:42 Unspecified intestin al obstruction, unspecified as to partial versus complete obstruction [facility] 2024-12-27 09:42 Constipation, unspecified [facility] 2024-[facility] 09:42 Disease of digestive system, un specified [facility] 2024-12-27 09:42 Dyspnea, unspecified [facility] 2024-12-27 09:42 Shortness of breath [facility] 2024-12-27 09:42 Upper abdominal pain, unspecifi ed [facility] 2024-12-27 09:42 Unspecified abdominal pain [facility] 2024-12-27 09:42 Nausea with vomiting, unspecifi ed [facility] 2024-12-27 09:42 Edema, unspecified [facility] 2024-12-27 09:42 Solitary pulmonary nodule Critical [facility] 2024-12-27 09:42 Encounter for [facility] adult medical examination without abnormal findings [facility] 2024-12-31 10:44 Chronic systolic (congestive) h eart failure [facility] 2024-12-31 10:52 Type 2 diabetes mellitus withou t complications [facility] 2024-12-31 10:52 Unspecified severe protein-elissa tony malnutrition [facility] 2024-12-31 10:52 Chronic systolic (congestive) h eart failure [facility] 2024-12-31 11:16 Chronic systolic (congestive) h eart failure [facility] 2024-12-31 11:21 Chronic systolic (congestive) h eart failure [facility] 2024-12-31 13:18 Type 2 diabetes mellitus withou t complications [facility] 2024-12-31 13:18 Unspecified severe protein-elissa tony malnutrition [facility] 2024-12-31 13:44 Chronic systolic (congestive) h eart failure [facility] 2025-01-01 00:02 Chronic systolic (congestive) h eart failure [facility] 2025-01-01 00:04 Type 2 diabetes mellitus withou t complications [facility] 2025-01-01 00:04 Unspecified severe protein-elissa tony malnutrition [facility] 2025-01-01 09:24 Type 2 diabetes mellitus withou t complications [facility] 2025-01-01 09:24 Unspecified severe protein-elissa tony malnutrition [facility] 2025-01-01 09:24 Chronic systolic (congestive) h eart failure [facility] 2025-01-01 11:55 Unspecified severe protein-elissa tony malnutrition [facility] 2025-01-02 14:00 Unspecified atrial fibrillation [facility] 2025-01-02 14:00 Unspecified intestin al obstruction, unspecified as to partial versus complete obstruction [facility] 2025-01-02 14:00 Upper abdominal pain, unspecifi ed [facility] 2025-01-03 07:30 Diffuse large B-cell lymphoma, lymph nodes of multiple sites [facility] 2025-01-03 07:30 Nontoxic single thyroid nodule [facility] 2025-01-03 07:30 Solitary pulmonary nodule Critical access hospital 2025-01-03 07:30 Encounter for genera l adult medical examination without abnormal findings [facility] Results/Labs test date facility value unit notes Result panel 1 NUCLEATED RED BLOOD CELLS AUTO 2024-12-17 14:40 [facility] 0.0 /100wbc (missing) BASOPHILS # (AUTO) 2024-12-17 14:40 [facility] 0.0 10 3/ul (missing) NRBC ABSOLUTE COUNT (AUTO) 2024-12-17 14:40 [facility] 0.00 x10 3/ul (missing) EOSINOPHILS # (AUTO) 2024-12-17 14:40 [facility] 0.1 10 3/ul (missing) BILIRUBIN,TOTAL 2024-12-17 14:40 [facility] 0.4 mg/dl As of September 2022 testing method has changed, this may include reference ranges. MONOCYTES # (AUTO) 2024-12-17 14:40 [facility] 0.6 10 3/ul (missing) LYMPHOCYTES # (AUTO) 2024-12-17 14:40 [facility] 0.8 10 3/ul (missing) CREATININE 2024-12-17 14:40 [facility] 1.2 mg/dl As of September 2022 testing method has changed, this may include reference ranges. ALBUMIN/GLOBULIN RATIO 2024-12-17 14:40 [facility] 1.5 (missing) (missing) AST ASPARTATE AMINOTRANSFERASE 2024-12-17 14:40 [facility] 10 iu/l As of September 2022 testing method has changed, this may include reference ranges. LIPASE 2024-12-17 14:40 [facility] 10 u/l As of September 2022 testing method has changed, this may include reference ranges. MEAN PLATELET VOLUME 2024-12-17 14:40 [facility] 10.8 fl (missing) CHLORIDE 2024-12-17 14:40 [facility] 104 mmol/l As of September 2022 testing method has changed, this may include reference ranges. GLUCOSE 2024-12-17 14:40 [facility] 107 mg/dl As of September 2022 testing method has changed, this may include reference ranges. HGB - HEMOGLOBIN 2024-12-17 14:40 [facility] 11.7 g/dl (missing) SODIUM 2024-12-17 14:40 [facility] 139 mmol/l (missing) RED CELL DISTRIBUTION WIDTH 2024-12-17 14:40 [facility] 15.2 % (missing) ALKALINE PHOSPHATASE 2024-12-17 14:40 [facility] 150 iu/l As of September 2022 testing method has changed, this may include reference ranges. BUN - BLOOD UREA NITROGEN 2024-12-17 14:40 [facility] 16 mg/dl As of September 2022 testing method has changed, this may include reference ranges. PLT - PLATELET COUNT 2024-12-17 14:40 [facility] 232 10 3/ul (missing) MEAN CORPUSCULAR HEMOGLOBIN 2024-12-17 14:40 [facility] 28.4 pg (missing) GLOBULIN 2024-12-17 14:40 [facility] 3.1 g/dl (missing) CARBON DIOXIDE - CO2 2024-12-17 14:40 [facility] 30 mmol/l As of September 2022 testing method has changed, this may include reference ranges. MEAN CORPUSCULAR HGB CONC 2024-12-17 14:40 [facility] 30.9 g/dl (missing) HCT - HEMATOCRIT 2024-12-17 14:40 [facility] 37.9 % (missing) RED BLOOD COUNT 2024-12-17 14:40 [facility] 4.12 10 6/ul (missing) POTASSIUM 2024-12-17 14:40 [facility] 4.2 mmol/l As of September 2022 testing method has changed, this may include reference ranges. ALBUMIN 2024-12-17 14:40 [facility] 4.5 g/dl As of September 2022 testing method has changed, this may include reference ranges. ANION GAP 2024-12-17 14:40 [facility] 5.0 (missing) (missing) GFR - MDRD 2024-12-17 14:40 [facility] 58 (missing) The IDMS-traceable MDRD Study Equation [...] updated May 2011. TOTAL PROTEIN 2024-12-17 14:40 [facility] 7.6 g/dl As of September 2022 testing method has changed, this may include reference ranges. NEUTROPHILS # (AUTO) 2024-12-17 14:40 [facility] 8.1 10 3/ul (missing) ALT ALANINE AMINOTRANSFERASE 2024-12-17 14:40 [facility] 9 iu/l As of September 2022 testing method has changed, this may include reference ranges. CALCIUM 2024-12-17 14:40 [facility] 9.5 mg/dl As of September 2022 testing method has changed, this may include reference ranges. WHITE BLOOD COUNT 2024-12-17 14:40 [facility] 9.6 x10 3/ul (missing) MEAN CORPUSCULAR VOLUME 2024-12-17 14:40 [facility] 92.0 fl (missing) Result panel 2 WBC,URINE 2024-12-17 14:50 [facility] 0-3 /hpf (missing) UROBILINOGEN,URIN E 2024-12-17 14:50 [facility] 0.2 (NORMAL) e.u./dl (missing) SPECIFIC GRAVITY,URINE 2024-12-17 [...] NOT INDICATED (missing) (missing) BACTERIA,URINE 2024-12-17 14:50 [facility] None Seen /hpf (missing) RBC,URINE 2024-12-17 14:50 [facility] None Seen /hpf (missing) COLOR,URINE 2024-12-17 14:50 [facility] YELLOW (missing) URINE CLEAN CATCH Result panel 3 NUCLEATED RED BLOOD CELLS AUTO 2024-12-25 14:16 [facility] 0.0 /100wbc (missing) BASOPHILS # (AUTO) 2024-12-25 14:16 [facility] 0.0 10 3/ul (missing) NRBC ABSOLUTE COUNT (AUTO) 2024-12-25 14:16 [facility] 0.00 x10 3/ul (missing) EOSINOPHILS # (AUTO) 2024-12-25 14:16 [facility] 0.1 10 3/ul (missing) BILIRUBIN,TOTAL 2024-12-25 14:16 [facility] 0.3 mg/dl As of September 2022 testing method has changed, this may include reference ranges. MONOCYTES # (AUTO) 2024-12-25 14:16 [facility] 0.6 10 3/ul (missing) LYMPHOCYTES # (AUTO) 2024-12-25 14:16 [facility] 1.0 10 3/ul (missing) CREATININE 2024-12-25 14:16 [facility] 1.1 mg/dl As of September 2022 testing method has changed, this may include reference ranges. ALBUMIN/GLOBULIN RATIO 2024-12-25 14:16 [facility] 1.5 (missing) (missing) WHITE BLOOD COUNT 2024-12-25 14:16 [facility] 10.2 x10 3/ul (missing) MEAN PLATELET VOLUME 2024-12-25 14:16 [facility] 10.6 fl (missing) CHLORIDE 2024-12-25 14:16 [facility] 104 mmol/l As of September 2022 testing method has changed, this may include reference ranges. ALKALINE PHOSPHATASE 2024-12-25 14:16 [facility] 107 iu/l As of September 2022 testing method has changed, this may include reference ranges. ALT ALANINE AMINOTRANSFERASE 2024-12-25 14:16 [facility] 11 iu/l As of September 2022 testing method has changed, this may include reference ranges. HGB - HEMOGLOBIN 2024-12-25 14:16 [facility] 11.2 g/dl (missing) LDH - LACTATE DEHYDROGENASE 2024-12-25 14:16 [facility] 123 iu/l As of September 2022 testing method has changed, this may include reference ranges. GLUCOSE 2024-12-25 14:16 [facility] 128 mg/dl As of September 2022 testing method has changed, this may include reference ranges. SODIUM 2024-12-25 14:16 [facility] 140 mmol/l Unknown AST ASPARTATE AMINOTRANSFERASE 2024-12-25 14:16 [facility] 15 iu/l As of September 2022 testing method has changed, this may include reference ranges. RED CELL DISTRIBUTION WIDTH 2024-12-25 14:16 [facility] 15.0 % (missing) GLOBULIN 2024-12-25 14:16 [facility] 2.8 g/dl (missing) MEAN CORPUSCULAR HEMOGLOBIN 2024-12-25 14:16 [facility] 27.9 pg (missing) PLT - PLATELET COUNT 2024-12-25 14:16 [facility] 272 10 3/ul (missing) CARBON DIOXIDE - CO2 2024-12-25 14:16 [facility] 29 mmol/l As of September 2022 testing method has changed, this may include reference ranges. POTASSIUM 2024-12-25 14:16 [facility] 3.7 mmol/l As of September 2022 testing method has changed, this may include reference ranges. MEAN CORPUSCULAR HGB CONC 2024-12-25 14:16 [facility] 30.2 g/dl (missing) HCT - HEMATOCRIT 2024-12-25 14:16 [facility] 37.1 % (missing) RED BLOOD COUNT 2024-12-25 14:16 [facility] 4.01 10 6/ul (missing) ALBUMIN 2024-12-25 14:16 [facility] 4.1 g/dl As of September 2022 testing method has changed, this may include reference ranges. TOTAL PROTEIN 2024-12-25:16 [facility] 6.9 g/dl As of September 2022 testing method has changed, this may include reference ranges. GFR - MDRD 2024-12-25 14:16 [facility] 64 (missing) The IDMS-traceable MDRD Study Equation [...] ardization, last updated May 2011. ANION GAP 2024-12-25 14:16 [facility] 7.0 (missing) (missing) NEUTROPHILS # (AUTO) 2024-12-25 14:16 [facility] 8.4 10 3/ul (missing) CALCIUM 2024-12-25 14:16 [facility] 8.8 mg/dl As of September 2022 testing method has changed, this may include reference ranges. BUN - BLOOD UREA NITROGEN 2024-12-25 14:16 [facility] 9 mg/dl As of September 2022 testing method has changed, this may include reference ranges. MEAN CORPUSCULAR VOLUME 2024-12-25 14:16 [facility] 92.5 fl (missing) Result panel 4 CRP - C-REACTIVE PROTEIN 2024-12-31 13:35 [facility] 1.0 mg/dl As of Sep testing method has changed, this may include reference ranges. ESTIMATED AVERAGE GLUCOSE 2024-12-31 13:35 [facility] 148 mg/dl (missing) PREALBUMIN 2024-12-31 13:35 [facility] 19 mg/dl As of September 2022 testing method has changed, this may include reference ranges. HEMOGLOBIN A1c% 2024-12-31 13:35 [facility] 6.8 % The [place] [employer] (ADA) has made the following recommendations: Monitoring HbA1c in Diabetic Patients: A1c (NGSP%) Goal <8 Less Stringent Goal <7 General Goal <6.5 More Stringent Goal Diagnosis of Diabetes: A1c (NGSP%) Goal >6.5 Diabetic 5.7-6.4 Pre-Diabetic <5.7 Non-Diabetic Result panel 5 GLUCOSE, WHOLE BLOOD 2025-01-11 06:51 Stickybits 117 (missing) (missing) Social History date description facility
[2025-01-11] MEDS: HYDROmorphone 0.5 MG/0.5 ML SYRINGE IVP PRN ×2 (15:12→18:01)
[2025-01-11] MEDS ORDERED: HYDROmorphone 0.5 MG/0.5 ML SYRINGE ONE (15:12)
--- NOTE | 2025-01-11 15:18 | ANESTHESIA POST OP EVALUATION ---
Anesthesia Post Eval Post Anesthesia Eval Vitals: Last Vital Signs Temp 36.0 C L 01/11/25 06:49 Pulse 72 01/11/25 15:00 Resp 24 01/11/25 15:00 BP 94/46 L 01/11/25 15:00 Pulse Ox 100 01/11/25 15:00 CV Function Including HR & BP: Stable Pain Control: Satisfactory Nausea & Vomiting: Negative Mental Status: Baseline Respiratory Status: Airway Patent Hydration Status: Satisfactory Anesthesia Complications: None
[2025-01-11] MEDS: ONDANSETRON 4 MG/2 ML VIAL IVP PRN (15:48)
[2025-01-11] MEDS ORDERED: HEPARIN FLUSH 500 UNITS/5 ML SYRINGE IVP ONE ×2 (16:03→16:06)
[2025-01-11 16:17] LABS: HCT - HEMATOCRIT 38.1 % (42.0-52.0); HGB - HEMOGLOBIN 11.7 g/dL (14.0-18.0); MEAN PLATELET VOLUME 11.4 fL (7.4-11.4); NRBC ABSOLUTE COUNT (AUTO) 0.00 x10^3/uL; NUCLEATED RED BLOOD CELLS AUTO 0.0 /100WBC; PLT - PLATELET COUNT 234 10^3/uL (130-450); RED CELL DISTRIBUTION WIDTH 15.2 % (12.0-15.0)
[2025-01-11] MEDS ORDERED: BENZOCAINE/TETRACAINE/BUTAMBEN 20 GM MM PRN (16:27)
[2025-01-11 16:28] LABS: ALT ALANINE AMINOTRANSFERASE 11.0 IU/L (10-60); AST ASPARTATE AMINOTRANSFERASE 19.0 IU/L (10-42); BUN - BLOOD UREA NITROGEN 18.0 mg/dL (6-20); CARBON DIOXIDE - CO2 25.0 mmol/L (21-32); CREATININE 1.4 mg/dL (0.6-1.3); GFR - MDRD 48.0 (>89)
[2025-01-11] MEDS: LACTATED RINGERS 1,000 ML IV SCH (16:50)
[2025-01-11] MEDS: SODIUM CHLORIDE FLUSH 0.9% 10 ML SYRINGE IVP SCH (16:50)
[2025-01-11] MEDS: METOPROLOL 5 MG/5 ML VIAL IVP SCH (16:51)
[2025-01-11] MEDS ORDERED: [UNRECOGNIZED DRUG - REMARK] NAS SCH (17:00)
--- NOTE | 2025-01-11 17:01 | XRAY Report ---
PROCEDURE: XR Chest for Line Placement INDICATIONS: Right IJ placed TECHNIQUE: One view of the chest was acquired. COMPARISON: 12/18/2024 FINDINGS: Surgical changes and devices: Right IJ centimeters catheter tip projects over the high SVC. Gastric tube tip and sideport project over the stomach. Sternotomy. Lungs and pleura: No pleural effusions or pneumothorax. No consolidation. Mediastinum: Mediastinal contours appear normal. Heart size is normal. Bones and chest wall: Pneumoperitoneum. IMPRESSION: Gastric tube tip and sideport project. Right IJ central venous catheter tip projects over the high SVC. Pneumoperitoneum. Correlate with recent surgery. Reviewed by: Myron Gonzalez MD on 01/11/2025 4:58 PM PDT Approved by: Myron Gonzalez MD on 01/11/2025 4:58 PM PDT Station ID: [id number]
[2025-01-11] MEDS: ACETAMINOPHEN 1,000 MG/100 ML 1,000 MG/100 ML BAG IV SCH (17:11)
--- NOTE | 2025-01-11 17:50 | CONSULTATION NOTE ---
Referring Provider Name of Referring Provider:: Spring Piper DO Consult Date: 01/11/25 Chief Complaint Chief Complaint Chief Complaint: post operative hypotension History of Present Illness Admitted From Admitted From:: home History Obtained From Records Reviewed: prior hospitalizations, surgery notes History obtained from: patient and records review History of Present Illness HPI Comment/Other: 84yo male with hx of recurrent SBO, chronic diverticulitis, remote open appendectomy, HFrEF, CAD s/p CABG, afib on AC, prostatectomy, lymphoma in remission, T2DM, HTN and HLD underwent elective lap hand assisted sigmoidectomy with primary anastomosis, extensive MAYA. Cardiac clearance by his manager agriculture pre operatively, RCRi of 3 points, elevated risk of post op complications, but "cleared" to undergo surgery. Xarelto held 4 days pre operatively. In the immediate postoperative period Mr. Child had low blood pressures systolics as low as the high 70s over the mid 40s. Therefore instead of transferring to the [facility] floor he was transferred to the ICU. Medicine is asked to consult on this patient for postoperative ICU management. He was given 1 500 cc bolus in the recovery room. This was then repeated. He was then transferred to the ICU where a right IJ central line was placed. The intention was that pressors would be administered, however patient's blood pressure improved to the 120s over 50s. He is alert oriented and mentating well. He is able to recount to me what surgery he had and why he had it. He has complaints of some right lower quadrant abdominal pain Mr. Child is well-known to our service for recurrent small bowel obstructions. With his last admission earlier this month. I had an advance care planning discussion with him about 6 months ago. His CODE STATUS is no CPR but otherwise full care. He has a POLST on file, his medical decision maker is his significant other Pam Smith. Meds/Allgy Home Medications Ambulatory Orders Medication Instructions Recorded Confirmed nitroglycerin 0.4 mg sublingual 1 tab sublingual Q5M P RN Chest Pain 06/11/23 01/11/25 tablet ipratropium bromide 21 mcg (0.03 2 spray intranasal QI D #90 mL 03/12/24 01/11/25 %) nasal spray atorvastatin 40 mg tablet 40 mg PO DAILY 07/12/2412/14 metoprolol succinate 25 mg 25 mg PO DAILY 07/12/24 tablet,extended release 24 hr omeprazole magnesium 20 mg 20 mg PO DAILY 07/12/24 capsule,delayed release furosemide 20 mg tablet See Rx Instructions PO DAILY #180 08/16/24 01/11/25 tabs rivaroxaban 20 mg tablet (Xarelto) 20 mg PO QPM #90 ta bs 10/08/24 01/08/25 lisinopril 5 mg tablet 5 mg PO ONCE 10/23/24 peg 3350-electrolytes 236 240 ml PO Q10M #4,000 mL 12/0601/11/25 gram-22.74 gram-6.74 gram-5.86 gram solution (Golytely) ciprofloxacin HCl 250 mg tablet 500 mg (2 x 250 mg) PO BID 20 days 12/19/24 01/11/25 #80 tabs metronidazole 250 mg tablet 500 mg (2 x 250 mg) PO TID WM 20 12/19/24 01/11/25 days #120 tabs aspirin 81 mg capsule 81 mg PO DAILY 01/08/2512/14 multivitamin (Daily Multi-Vitamin 1 tab PO DAILY 01/0801/11/25 tablet) ondansetron 4 mg disintegrating 4 mg PO Q8H PRN nausea and vomiting 01/08/25 01/11/25 tablet Allergies Allergies Allergy/AdvReac Type Severity Reaction Status Date / Time empagliflozin (From AdvReac Nausea Verified 01/11/25 07:10 Jardiance) milk AdvReac gas Verified 01/11/25 07:10 PFSH Active Problems All Active Problems Chronic HFrEF (heart failure with reduced ejection fraction) (Acute) Diverticulitis large intestine (Acute) Small bowel obstruction (Acute) Lumbar radiculopathy (Acute) Frequent urination (Acute) Sciatica (Acute) Urinary incontinence (Acute) Healthcare maintenance (Acute) Right lower lobe pulmonary nodule (Acute) Hyperlipidemia (Acute) BPH (benign prostatic hyperplasia) (Acute) Macular degeneration (Acute) Gout (Acute) Vitamin D deficiency (Acute) Anemia (Acute) Right thyroid nodule (Acute) Diffuse large B-cell lymphoma of lymph nodes of multiple regions (Acute) Atrial fibrillation (Acute) GERD (gastroesophageal reflux disease) (Acute) DM type 2 (diabetes mellitus, type 2) (Acute) HTN (hypertension) (Acute) CAD (coronary artery disease) (Acute) Medical History Medical History Alcohol abuse remission since 2021 Peripheral neuropathy Hx of adenomatous colonic polyps Congestive heart failure Dizziness Local reaction to bee sting Surgical History Surgical History Hx of colonoscopy (~12/19/24) [facility] Dr. Piper path-Neg 12/28/[address] [facility] [address]. Ha mild diverticulosis . [facility] Dr. Horton 11/08/2012 2 benign TA S/P CABG x 2 (~05/2022) with 2 stents History of transurethral resection of prostate (~2011) Hx of hemorrhoidectomy (~1999) History of tonsillectomy History of appendectomy (~1953) Family History Family History Other Family history unknown Social History Social History Smoking Status: Former smoker If you are a former smoker, when did you quit? (Date/Year): 40 years ago Number of Years Smoked: 31 How many cigarettes a day do you smoke? (20 cigarettes=1 Pk): 20 Second hand tobacco smoke exposure: Yes Do you dip or chew tobacco?: No Do you vape?: No Patient requests smoking cessation consult: No Initiate information on smoking cessation: No Living arrangement: At home Living Condition: Alone Support Person: Yes Has a Durable Power of Cytogenetic Technologist for Health Care?: Yes DPOA on file?: No Has Health Care Directive?: Yes Health Care Directive on file?: No How many days per week?: 4 Level: Independent Do you feel safe in your home environment?: Yes History of physical, verbal, emotional, or financial abuse?: No ETOH Use: None Frequency: Daily Substance Use: denies use Are you sexually active?: No Retired: Yes Dates of Service: 9930-2466 POLST Patient has POLST: Yes POLST on file?: Yes POLST CPR Status: Do Not Attempt Resuscitation (DNAR) / Allow Natural Level of Medical Intervention: Full Treatment Results Lab Results Lab results reviewed: Yes 01/11/25 16:04 01/11/25 16:04 Other Lab Results: Lab Results x24hrs 01/11/25 01/11/25 Range/Units 16:04 06:51 WBC 11.7 H (4.8-10.8) x10^3/uL RBC 4.08 L (4.70-6.10) 10^6/uL Hgb 11.7 L (14.0-18.0) g/dL Hct 38.1 L (42.0-52.0) % MCV 93.4 (80.0-94.0) fL MCH 28.7 (27.0-31.0) pg MCHC 30.7 L (32.0-36.0) g/dL RDW 15.2 H (12.0-15.0) % Plt Count 234 (130-450) 10^3/uL MPV 11.4 (7.4-11.4) fL Neut # (Auto) 10.3 H (1.5-6.6) 10^3/uL Lymph # (Auto) 0.3 L (1.5-3.5) 10^3/uL Grayson # (Auto) 1.0 (0.0-1.0) 10^3/uL Eos # (Auto) 0.0 (0.0-0.7) 10^3/uL Baso # (Auto) 0.0 (0.0-0.1) 10^3/uL Absolute Nucleated RBC 0.00 x10^3/uL Nucleated RBC % 0.0 /100WBC Sodium 138 (135-145) mmol/L Potassium 4.2 (3.5-4.5) mmol/L Chloride 106 (101-111) mmol/L Carbon Dioxide 25 (21-32) mmol/L Anion Gap 7.0 (6-13) BUN 18 (6-20) mg/dL Creatinine 1.4 H (0.6-1.3) mg/dL Estimated GFR (MDRD) 48 L (>89) Glucose 169 H (74-104) mg/dL POC Whole Bld Glucose 117 (70-100) mg/dL Calcium 8.0 L (8.5-10.3) mg/dL Total Bilirubin 0.7 (0.2-1.0) mg/dL AST 19 (10-42) IU/L ALT 11 (10-60) IU/L Alkaline Phosphatase 91 (42-121) IU/L Total Protein 5.7 L (6.4-8.9) g/dL Albumin 3.3 (3.2-5.5) g/dL Globulin 2.4 (2.1-4.2) g/dL Albumin/Globulin Ratio 1.4 (1.0-2.2) Blood Type O POSITIVE Antibody Screen NEGATIVE Review of Systems Status of ROS: 10 or more systems reviewed and unremarkable except as noted in history and below Exam Exam Vital Signs: Vital Signs x48h Temp Pulse Pulse Resp BP BP Pulse Ox 01/11/25 17:00 72 15 126/61 96 01/11/25 16:09 72 22 82/52 L 98 01/11/25 16:00 36.2 C L 71 17 85/61 L 97 01/11/25 15:55 36.1 C L 70 17 87/52 L 95 01/11/25 15:40 36 C L 72 16 90/50 L 97 01/11/25 15:35 36.0 C L 72 18 115/57 L 94 01/11/25 15:30 71 19 94/49 L 100 01/11/25 15:30 72 24 94/49 L 99 01/11/25 15:27 71 20 80/44 L 100 01/11/25 15:25 72 18 77/46 L 99 01/11/25 15:20 72 19 78/47 L 98 01/11/25 15:20 72 28 H 98 01/11/25 15:15 72 22 89/50 L 100 01/11/25 15:10 73 23 89/51 L 99 01/11/25 15:05 74 21 99/72 100 01/11/25 15:00 74 26 H 94/46 L 100 01/11/25 15:00 72 24 94/46 L 100 01/11/25 14:57 75 16 97/39 L 100 01/11/25 14:56 76 11 L 69/40 L 100 Constitutional pale, NG in place. HENMT normocephalic oral MM dry Eyes conjunctivae normal and no scleral icterus Neck/C-Spine trachea midline Lymph no lymphadenopathy noted Chest inspection of chest normal Respiratory breath sounds equal bilaterally, normal respiratory effort and clear to auscultation bilaterally Cardiovascular normal heart rate noted and regular rhythm noted not in a fib. no tachycardia Gastrointestinal abdomen soft to palpation VALERIANO with serosang drainage at RLQ, incisional dressings intact, approp tender Genitourinary copeland draining clear yellow urine. Extremities normal to inspection no pedal edema Neurology no focal motor deficit noted, speech normal and GCS 15 Psychiatry mental status grossly normal, oriented x3, thought process normal, cooperative and affect normal Skin skin color normal Conclusion/Plan Problem List (1) Diverticulitis large intestine: Plan: Chronic diverticulitis now postop day 0 status post resection of the sigmoid colon with extensive lysis of adhesions secondary to extensive scarring within the abdomen. He has an NG tube in place with minimal drainage currently. His abdominal exam is as expected. There is not a large amount of drainage from the right lower quadrant VALERIANO which is located within the pelvis. Discussed with Dr. Piper. Plan is to await return of bowel function. Ice chips for comfort. Protonix while NG in place. Multimodal pain control. anesthesia has placed TAP blocks. (2) Chronic HFrEF (heart failure with reduced ejection fraction): Plan: This patient is allergic to Jardiance. Otherwise for his heart failure with reduced ejection fraction he is on furosemide 20 to 40 mg daily, lisinopril 5 mg daily, metoprolol succinate 25 mg daily. Reportedly had a stat echo done earlier this month, while I can see the cardiology medical clearance form I cannot see the echo. Echocardiogram from August 2023 shows LVEF estimated to be 35 to 40%. He does not have any pedal edema today. His lungs are clear to auscultation he is not tachypneic. He is showing total intake for this admission of 6000 mL which puts him net positive about 6000 mL. Will watch this and diurese as indicated. (3) Atrial fibrillation: Plan: resume anticoagulation when clinically appropriate. Metoprolol 5mg q6h- hold for SBP<110, HR <65. Watch for RVR and treat accordingly. Qualifiers: Atrial fibrillation type: unspecified Qualified Code(s): I48.91 - Unspecified atrial fibrillation (4) DM type 2 (diabetes mellitus, type 2): Plan: I do not see any diabetes management on his home medications. Last hemoglobin A1c 6.8% on 12/31/2024. I will place him on [id number] glucose screening and sliding scale insulin for n.p.o. protocol. I think he is overall managed via diet in the outpatient environment. Qualifiers: Diabetes mellitus penitentiary insulin use: unspecified penitentiary insulin use status Diabetes mellitus complication status: without complication Q ualified Code(s): E11.9 - Type 2 diabetes mellitus without complications (5) HTN (hypertension): Plan: At home he is on lisinopril 5 mg daily, metoprolol 25 mg daily. He has been hypotensive post operatively. I am holding his lisinopril for now. He will get metoprolol scheduled Q6 with hold parameters to treat his atrial fibrillation. He is also on furosemide at home. He is currently 6 L positive but I will hold his furosemide and continue to monitor clinically. Qualifiers: Hypertension type: primary hypertension Qualified Code(s): I10 - Essential (primary) hypertension Plan I have spent 85 minutes in the care of this patient today. This includes time [id number], review and ordering of diagnostic imaging and laboratory studies and consultation with other providers. Monitoring the patient's signs symptoms, evaluation of medication effectiveness and patient's response to treatment. Lab Results Lab results reviewed: Yes 01/11/25 16:04 01/11/25 16:04
[2025-01-12 04:21] LABS: HCT - HEMATOCRIT 35.4 % (42.0-52.0); HGB - HEMOGLOBIN 10.8 g/dL (14.0-18.0); MEAN PLATELET VOLUME 10.9 fL (7.4-11.4); NRBC ABSOLUTE COUNT (AUTO) 0.00 x10^3/uL; NUCLEATED RED BLOOD CELLS AUTO 0.0 /100WBC; PLT - PLATELET COUNT 196 10^3/uL (130-450); RED CELL DISTRIBUTION WIDTH 15.2 % (12.0-15.0)
[2025-01-12 04:39] LABS: BUN - BLOOD UREA NITROGEN 20.0 mg/dL (6-20); CARBON DIOXIDE - CO2 24.0 mmol/L (21-32); CREATININE 1.2 mg/dL (0.6-1.3); GFR - MDRD 58.0 (>89); PHOSPHORUS 4.4 mg/dL (2.5-5.0)
[2025-01-12] MEDS: PANTOPRAZOLE 40 MG VIAL IVP SCH (06:03)
[2025-01-12] MEDS: SODIUM CHLORIDE 0.9% 500 ML IV ONE (06:35)
--- NOTE | 2025-01-12 07:38 | PROVIDER PROGRESS NOTE ---
<Statement entered by Dwight Hall, DO - 01/12/25 15:12> I was present with the medical student on the hospitalist service. I personally verified the history of present illness and performed the physical examination and medical decision making. I have verified the medical students documentation for this encounter and agree with the plan of care below. In addition 84-year-old gentleman with past medical history of diverticulitis who came in for sigmoidectomy with multiple adhesions during his surgery. Has 2 primary anastomoses made during surgery. Procedure completed 01/11. He was kept in the hospital in the ICU following procedure. He has some soft blood pressures, but not demonstrating any symptoms of shock otherwise. Mentating appropriately. Still making appropriate urine output. Giving some gentle fluids as he is n.p.o. pending return of bowel function. Managing his pain with scheduled APAP with as needed parenteral narcotics. Discussed his case with general surgery today. If he remains stable, can likely stepdown out of the ICU 01/13. Rest of plan as below. Subjective Prog Note Date Prog Note Date: 01/12/25 Prog Note Time: 07:36 Subjective Pt reports feeling: Improved Subjective: Patient remains in the ICU. White count is up from 11.7-16.7. His vital signs have worsened overnight. He is not started on pressors. Maps do seem like they would have indicated it. Started on 500mL NS this morning. Started on D5 1/2NS at higher rate. Pressures remain in the soft systolic 90s. Maps are maintained >65. Slight tachypneic but lying comfortable. Pain well controlled on IV tylenol and dilaudid. Transcendental meditation is helpful. Still awaiting flatus. Using bedside spirometry. Patient is doing well otherwise, lying comfortable. Without fevers, chills, nausea, vomit. Current Medications Current Medications Current Medications: Current Medications Generic Name Dose Route Start Last Admin Trade Name Freq PRN Reason Stop Dose Admin Benzocaine/Butamben/Tetracaine HCl 1 sprays 01/11/25 16:27 Benzocaine/Tetracaine/Butamben 20 Gm MM DAILY PRN Throat Pain Hydromorphone HCl 0.5 mg 01/11/25 16:27 01/12/25 04:00 Hydromorphone 0.5 Mg/0.5 Ml Syringe IVP 0.5 mg Q2H PRN Administration Severe Pain (Level 7-10) Lactated Ringer's 1,000 mls @ 100 mls/hr 01/11/25 16:27 01/11/25 23:45 Lr IV 100 mls/hr .Q10H GILMAR Administration Acetaminophen 1,000 mg in 100 mls @ 400 mls/hr 01/11/25 18:00 01/12/25 05:35 Acetaminophen IV Infused Q6HR GILMAR Infusion Sodium Chloride 500 mls @ 250 mls/hr 01/12/25 06:33 01/12/25 06:35 Normal Saline 0.9% IV 01/12/25 08:32 250 mls/hr ONCE ONE Administration Metoprolol Tartrate 5 mg 01/11/25 16:27 01/12/25 04:03 Metoprolol 5 Mg/5 Ml Vial IVP 5 mg Q6H GILMAR Administration Ondansetron HCl 4 mg 01/11/25 16:27 Ondansetron 4 Mg/2 Ml Vial IVP Q6H PRN Nausea / Vomiting Pantoprazole Sodium 40 mg 01/12/25 07:00 01/12/25 06:03 Pantoprazole 40 Mg Vial IVP 40 mg QDAC GILMAR Administration Sodium Chloride 10 ml 01/11/25 17:00 01/11/25 23:45 Sodium Chloride Flush 0.9% 10 Ml Syringe IVP 10 ml 0100,0900,1700 GILMAR Administration Sodium Chloride 10 ml 01/11/25 16:27 Sodium Chloride Flush 0.9% 10 Ml Syringe IVP PRN PRN NEEDED PER PROVIDER ORDERS Objective Vital Signs/Intake & Output Reviewed Vital Signs: Yes Vital Signs: Vital Signs x48h Temp Pulse Pulse Resp BP BP Pulse Ox 01/12/25 07:00 68 23 91/39 L 95 01/12/25 06:20 95/41 L 01/12/25 06:17 81/35 L 01/12/25 06:00 71 18 86/40 L 97 01/12/25 05:00 36.5 C 67 25 H 103/46 L 97 01/12/25 04:03 75 111/53 L 01/12/25 04:00 76 24 111/53 L 97 01/12/25 03:00 70 23 118/53 L 96 01/12/25 02:00 66 15 115/50 L 99 01/12/25 01:00 63 15 104/48 L 98 01/12/25 00:00 36.7 C 70 22 132/63 H 98 Intake & Output: Intake & Output 01/09/25 01/10/25 01/11/25 01/12/25 23:59 23:59 23:59 23:59 Intake Total 7312 / 7312 220 / 220 Output Total 670 / 670 662 / 662 Balance 6642 / 6642 -442 / -442 Weight (kg) 92.5 kg Objective Comments/Other: Gen: Well nourished and well developed. No acute distress Heent: Normocephalic/atraumatic, normal appearance of external ears and nose. R IJ line. NGT with 200cc bilious output on low intermittent suction. Cardiac: Regular rate and rhythm. No murmurs appreciated. No visible JVP elevation. Equal radial pulses 2+ Pulm: On RA. Normal respirations without increased effort. Clear to auscultation throughout without wheezes, rales or rhonchi. Abdomen: Soft, rounded, appropriately tender. No rebound tenderness or guarding. Midline incision well dressed, clean and intact. VALERIANO drain in R abdomen with small serosanguinous fluid. : Wadsworth patent with yellow urine Extremities: Moves all 4 extremities equally. Normal tone. Neuro: Face symmetric, CN II through XII intact grossly. No focal neurologic deficits. Psych: Mood euthymic with congruent affect. Good fund of knowledge. Judgment intact. Lab Results 01/12/25 04:10 01/12/25 04:10 Other Labs: Lab Results x24hrs 01/12/25 01/11/25 01/11/25 Range/Units 04:10 16:40 16:04 WBC 16.7 H 11.7 H (4.8-10.8) x10^3/uL RBC 3.83 L 4.08 L (4.70-6.10) 10^6/uL Hgb 10.8 L 11.7 L (14.0-18.0) g/dL Hct 35.4 L 38.1 L (42.0-52.0) % MCV 92.4 93.4 (80.0-94.0) fL MCH 28.2 28.7 (27.0-31.0) pg MCHC 30.5 L 30.7 L (32.0-36.0) g/dL RDW 15.2 H 15.2 H (12.0-15.0) % Plt Count 196 234 (130-450) 10^3/uL MPV 10.9 11.4 (7.4-11.4) fL Neut # (Auto) 15.5 H 10.3 H (1.5-6.6) 10^3/uL Lymph # (Auto) 0.5 L 0.3 L (1.5-3.5) 10^3/uL [place] # (Auto) 0.7 1.0 (0.0-1.0) 10^3/uL Eos # (Auto) 0.0 0.0 (0.0-0.7) 10^3/uL Baso # (Auto) 0.1 0.0 (0.0-0.1) 10^3/uL Absolute Nucleated RBC 0.00 0.00 x10^3/uL Nucleated RBC % 0.0 0.0 /100WBC Sodium 136 138 (135-145) mmol/L Potassium 4.5 4.2 (3.5-4.5) mmol/L Chloride 105 106 (101-111) mmol/L Carbon Dioxide 24 25 (21-32) mmol/L Anion Gap 7.0 7.0 (6-13) BUN 20 18 (6-20) mg/dL Creatinine 1.2 1.4 H (0.6-1.3) mg/dL Estimated GFR (MDRD) 58 L 48 L (>89) Glucose 189 H 169 H (74-104) mg/dL Calcium 7.9 L 8.0 L (8.5-10.3) mg/dL Phosphorus 4.4 (2.5-5.0) mg/dL Magnesium 1.9 (1.7-2.3) mg/dL Total Bilirubin 0.7 (0.2-1.0) mg/dL AST 19 (10-42) IU/L ALT 11 (10-60) IU/L Alkaline Phosphatase 91 (42-121) IU/L Total Protein 5.7 L (6.4-8.9) g/dL Albumin 3.3 (3.2-5.5) g/dL Globulin 2.4 (2.1-4.2) g/dL Albumin/Globulin Ratio 1.4 (1.0-2.2) Nasal Screen MRSA (PCR) NEGATIVE (NEGATIVE) Blood Type O POSITIVE Antibody Screen NEGATIVE Diagnostic Imaging Diagnostic Imaging Results: positive Final report reviewed Diagnostic Imaging Comments: 01-11-2025 CXR comfirms position of NGT. Pneumoperitoneum noted. No acute cardiopulmonary process. 12-31-2024 ECHO LVEF estimated at 35-40%. Global left ventricular systolic function moderately decreased. L and R atrium are mild to moderately dilated. RVSP 43mmHg. Assessment/Plan Problem List (1) Diverticulitis large intestine: (2) Small bowel obstruction: Impression: S/p Lap sigmoidectomy with extensive MAYA and 2 anastamoses 01/11. For chronic diverticulitis and small bowel obstruction with adhesions. Post-operatively complicated by hypotension. Reactive leukocytosis also noted. Otherwise patient is clinically doing quite well, pain appropriately controlled without nausea. Minimal VALERIANO drain output. Wadsworth catheter maintained to monitor urine output. Discussed this case with general surgery on 01/12. - Surgery following as primary - Continuing bowel rest, npo status - NGT patent on low intermittent suction - PT/OT consult placed - Encourage IS and mobility as tolerated - Receiving scheduled 1g IV Tylenol and 0.2mg Dilaudid q2H prn - Heparin for DVT ppx - Repeat BMP and CBC in am - Replete electrolytes as necessary (Mg, Phos, K, Ca) (3) Leukocytosis: Impression: Patient had increase in leukocytosis from 11.7-16.7. Suspect most is reactive following surgery. He has soft blood pressures as below. Not clinically in shock. No fevers or chills. Remainder of his vital signs are stable. - Will continue monitoring off of antibiotics - If fevers or other signs of antibiotics, likely needs full septic workup (4) Hypotension after procedure: Impression: Clinically not in shock. Is having soft blood pressures, but mentating normally. Differential includes hypovolemia versus delayed anesthetic effect versus medication side effect. Patient is not symptomatic. He is not lightheaded, feels well. Receiving IV fluids, reduce dose of metoprolol tartrate to 2.5 mg scheduled. Pressures remain soft, but no evidence of end organ failure. JOSUE resolving. Urine output is appropriate.Minimal intraop blood loss, Hgb stable, and no evidence of active bleeding. - Continue D5 half NS at 125 mL/h, Monitor for signs of volume overload - Lopressor IV 2.5 mg every 6 hours - If urine output drops off, or patient otherwise symptomatic (encephalopathy, chest pain, dyspnea), will start on pressors, possibly dobutamine versus Levophed (5) Chronic HFrEF (heart failure with reduced ejection fraction): Impression: Not in acute decompensation. Clinically dry on exam. Most recent ECHO 12-31-2024 reveals EF 35-40% which is stable when compared to prior . GDMT home meds include only metoprolol and lisinopril. No MRA or SGLTi. Additionally is on Lasix 20 to 40 mg based on swelling in his lower extremities. Frequently 20 daily. Patient says he has soft blood pressures normally, as possible he was not started on these agents because of their hemodynamic effect. - Hold GDMT meds for now given his hypotension - Consider resumption of IV Lasix 10 to 20 mg if evidence of volume overload (6) Atrial fibrillation: Impression: CHADVASC 8. HASBLED 3. Hx of CAD s/p PCIx2. Taking low dose aspirin and Xarelto. - Hold Xarelto while npo - On heparin for DVT ppx - Likely discontinue aspirin when we resume his home meds, he does not need to be on ASA and a DOAC. Qualifiers: Atrial fibrillation type: unspecified Qualified Code(s): I48.91 - Unspecified atrial fibrillation (7) DM type 2 (diabetes mellitus, type 2): Impression: A1c 6.8. Not diabetic home meds listed. 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 This time was spent reviewing labs, vital signs, imaging, interviewing and examining the patient, and discussing plan of care with them and their other care providers. Patient is acutely ill, requiring close monitoring. He is at risk for decompensation up to and including . Reviewed WBC, creatinine, platelets, hemoglobin. Ordered POC blood glucose checks. Monitoring for return of bowel function. Discussed his case with general surgery today. On parenteral narcotics. Qualifiers: Hypertension type: primary hypertension Qualified Code(s): I10 - Essential (primary) hypertension
[2025-01-12] MEDS: DEXTROSE 5%-0.45% NACL 1,000 ML IV SCH (08:43)
[2025-01-12] MEDS: CALCIUM GLUC 1,000MG/50ML-NACL 1,000 MG/50 ML BAG IV ONE (09:13)
--- NOTE | 2025-01-12 09:37 | PROVIDER PROGRESS NOTE ---
Subjective General Admit Date: 01/11/25 Procedure Date: 01/11/25 Post Op Days: 1 Procedure Performed: Lap hand assist sigmoidectomy w/ SERVICES ENGINEER, open SBR and MAYA Other Other Information/Narrative: Doing well this morning, pain well controlled, currently NPO w/ NGT in place, not yet OOB ambulating, making good urine, BP low overnight but improved with fluids, decreased BP again with metoprolol this AM. Wound Assessment Drain Type: VALERIANO Drain Output Description: Serosanguineous Approximate mls Output: 180 Review of Systems Status of ROS: 10 or more systems reviewed and unremarkable except as noted in history and below Exam Exam Vital Signs: Vital Signs x48h Temp Pulse Pulse Resp BP BP Pulse Ox 01/12/25 09:00 72 23 106/46 L 98 01/12/25 08:00 36.4 C L 67 20 97/42 L 96 01/12/25 07:00 68 23 91/39 L 95 01/12/25 06:20 95/41 L 01/12/25 06:17 81/35 L 01/12/25 06:00 71 18 86/40 L 97 01/12/25 05:00 36.5 C 67 25 H 103/46 L 97 01/12/25 04:03 75 111/53 L 01/12/25 04:00 76 24 111/53 L 97 01/12/25 03:00 70 23 118/53 L 96 01/12/25 02:00 66 15 115/50 L 99 Constitutional normal general appearance and no apparent distress HENMT NGT in place with gastric drainage in tubing/canister Eyes conjunctivae normal and no scleral icterus Neck/C-Spine visual inspection normal Respiratory normal respiratory effort Cardiovascular normal heart rate noted and regular rhythm noted Gastrointestinal Midline incision with dressing in place, right sided VALERIANO in place with serosanguineous output, appropriately TTP, non distended and soft. Genitourinary penis normal Wadsworth catheter in place Extremities normal to inspection Neurology GCS 15 Psychiatry thought process normal, cooperative and affect normal Skin skin color normal Impression/Plan Problem List (1) Diverticulitis large intestine: (2) Chronic HFrEF (heart failure with reduced ejection fraction): (3) Atrial fibrillation: Qualifiers: Atrial fibrillation type: unspecified Qualified Code(s): I48.91 - Unspecified atrial fibrillation (4) DM type 2 (diabetes mellitus, type 2): Qualifiers: Diabetes mellitus dental front office assistant insulin use: unspecified dental front office assistant insulin use status Diabetes mellitus complication status: without complication Qualified Code(s): E11.9 - Type 2 diabetes mellitus without complications (5) HTN (hypertension): Qualifiers: Hypertension type: primary hypertension Qualified Code(s): I10 - Essential (primary) hypertension (6) Small bowel obstruction: Plan Neuro - Pain controlled - Alert and oriented x 4 - Continue tylenol and dilaudid for pain control CVS - BP borderline, dropped with metoprolol, increased with IVF - Metoprolol dose decreased to 2.5 q6 - Continue to monitor Resp - Doing well on RA - Continue to monitor GI - Keep NGT - Await ROBF - Protonix for GI ppx - Maintain Wadsworth; BP borderline and pelvic surgery - Net positive 7L, monitor closely - UOP ~0.6ml/kg/hr and increasing Endo - Monitor BG, borderline elevated, HbA1c ordered - Insulin orders placed, BG target 140-180 Heme - Hgb 10.8 from 11.7, likely partially dilutional from net 7L positive - Start HSQ TID for DVT ppx at 1400, ~24hrs post surgery ID - WBC increased to 16 from 11, appropriate post op - Continue to monitor off abx MSK - OOB ambulate with RN assistance today - PT ordered Lines/Drains - Wadsworth, maintain for strict I's&O's in ICU care - TLC, maintain for access and possible pressors in ICU care - VALERIANO, postoperative, continue to monitor The high probability of a clinically significant, sudden or life threatening deterioration of this patient required my full and direct attention, intervention and personal management. The aggregate critical care time was 60 minutes. This time is in addition to time spent performing reported procedures but includes data review and interpretation, patient assessment and monitoring of vital signs, documentation and medication orders and management.
[2025-01-12] MEDS ORDERED: MAGNESIUM SULFATE 2 GRAM 2 GM/50 ML BAG IV ONE (10:00)
[2025-01-12] MEDS: MAGNESIUM SULFATE 1 GM in SODIUM CHLORIDE 0.9% 50 ML IV ONE (10:05)
[2025-01-12] MEDS: METOPROLOL 5 MG/5 ML VIAL IVP SCH (10:50)
[2025-01-12] MEDS: INSULIN REGULAR, HUMAN 300 UNIT/3 ML PEN SUBQ SCH (12:28)
[2025-01-12] MEDS: HEPARIN 5,000 UNIT/ML VIAL SUBQ SCH (14:55)
[2025-01-13] MEDS: HYDROmorphone 0.5 MG/0.5 ML SYRINGE IVP ONE (02:00)
[2025-01-13] MEDS: SODIUM CHLORIDE FLUSH 0.9% 10 ML SYRINGE IVP PRN (03:37)
[2025-01-13 04:26] LABS: HCT - HEMATOCRIT 31.6 % (42.0-52.0); HGB - HEMOGLOBIN 9.4 g/dL (14.0-18.0); MEAN PLATELET VOLUME 12.2 fL (7.4-11.4); NRBC ABSOLUTE COUNT (AUTO) 0.00 x10^3/uL; NUCLEATED RED BLOOD CELLS AUTO 0.0 /100WBC; PLT - PLATELET COUNT 172 10^3/uL (130-450); RED CELL DISTRIBUTION WIDTH 15.6 % (12.0-15.0)
[2025-01-13 04:41] LABS: BUN - BLOOD UREA NITROGEN 17.0 mg/dL (6-20); CARBON DIOXIDE - CO2 25.0 mmol/L (21-32); CREATININE 1.1 mg/dL (0.6-1.3); GFR - MDRD 64.0 (>89); PHOSPHORUS 1.9 mg/dL (2.5-5.0)
[2025-01-13] MEDS: METOPROLOL 5 MG/5 ML VIAL IVP SCH (05:25)
[2025-01-13 08:10] LABS: GLUCOSE, URINE (UA) NEGATIVE (NEGATIVE); KETONES,URINE (UA) NEGATIVE (NEGATIVE); OCCULT BLOOD,URINE SMALL (NEGATIVE)
--- NOTE | 2025-01-13 08:14 | XRAY Report ---
PROCEDURE: XR Chest 1V INDICATIONS: Fever, sepsis, post op TECHNIQUE: One view of the chest was acquired. COMPARISON: Chest x-ray January 11, 2025 at 16:30 FINDINGS: Moderately enlarged cardiopericardial silhouette unchanged. Moderately prominent kimberlee, pulmonary vascular congestion and/or hilar lymph nodes unchanged. Low lung volumes with bibasilar subsegmental atelectasis. Mild bibasilar consolidations left greater than right partially obscuring the diaphragm and costophrenic angles commonly representing combination of pleural effusions, atelectatic changes, alveolar opacifications, pneumonia or other process mildly increased. Increased moderate bilateral perihilar and lower lobe peribronchial thickening and patchy opacity more than expected for expiratory result. Bronchitis, viral infection, bronchopneumonia, asthma or other process should be considered. Follow-up suggested. No pneumothorax. IMPRESSION: Increased peribronchial thickening and patchy opacity and bibasilar consolidations as discussed above. Follow-up is needed. Enlarged cardiac silhouette and prominent kimberlee unchanged. If symptoms persist or worsen, CT chest could be performed. Reviewed by: Shamir Sanchez MD on 01/13/2025 8:10 AM PST Approved by: Shamir Sanchez MD on 01/13/2025 8:10 AM PST Station ID: [id number]
[2025-01-13 08:15] LABS: CASTS, URINE 0-2 Hyaline Casts /LPF; SQUAMOUS EPITHELIAL CELL,UR RARE Squamous (<= Few)
--- NOTE | 2025-01-13 08:15 | PROVIDER PROGRESS NOTE ---
Subjective General Admit Date: 01/11/25 Procedure Date: 01/11/25 Post Op Days: 2 Procedure Performed: Lap hand assist sigmoidectomy w/ MECHANICAL PRODUCT ENGINEER, open SBR and MAYA Other Other Information/Narrative: Fever this AM to 39, since trended down, with an episode of hypoxia. Otherwise reports feeling similar today to yesterday, pain controlled, no bowel function, making good urine via Wadsworth. Wound Assessment Wound/Incisions: positive Dressing dry and intact Drain Type: VALERIANO Drain Output Description: Serosanguineous Approximate mls Output: 30 Review of Systems Status of ROS: 10 or more systems reviewed and unremarkable except as noted in history and below Exam Exam Vital Signs: Vital Signs x48h Temp Pulse Pulse Resp BP BP Pulse Ox 01/13/25 08:00 36.6 C 93 25 H 113/45 L 93 01/13/25 07:00 93 25 H 129/51 L 96 01/13/25 06:38 39.4 C H 01/13/25 06:00 36.7 C 92 26 H 100/42 L 93 01/13/25 05:55 90 L 01/13/25 05:45 90 L 01/13/25 05:25 108 H 139/56 H 01/13/25 05:00 109 H 24 112/90 98 01/13/25 04:00 37.0 C 94 24 135/52 H 95 01/13/25 02:59 93 27 H 123/45 L 01/13/25 02:00 37.6 C 89 27 H 123/48 L 95 O2 Flow Rate 01/13/25 08:00 2 01/13/25 07:00 2 01/13/25 06:38 01/13/25 06:00 2 01/13/25 05:55 01/13/25 05:45 01/13/25 05:25 01/13/25 05:00 01/13/25 04:00 01/13/25 02:59 95 01/13/25 02:00 Constitutional normal general appearance and no apparent distress HENMT NGT in place with bilious drainage in tubing/canister Eyes conjunctivae normal and no scleral icterus Neck/C-Spine visual inspection normal Respiratory normal respiratory effort Cardiovascular normal heart rate noted and regular rhythm noted Gastrointestinal Midline incision with dressing in place, right sided VALERIANO in place with serosanguineous output, appropriately TTP, non distended and soft. Genitourinary penis normal Wadsworth catheter in place Extremities normal to inspection Neurology GCS 15 Psychiatry oriented x3 and cooperative Skin skin color normal Impression/Plan Problem List (1) Diverticulitis large intestine: (2) Small bowel obstruction: (3) Leukocytosis: (4) Hypotension after procedure: (5) Chronic HFrEF (heart failure with reduced ejection fraction): (6) Atrial fibrillation: Qualifiers: Atrial fibrillation type: unspecified Qualified Code(s): I48.91 - Unspecified atrial fibrillation (7) DM type 2 (diabetes mellitus, type 2): Qualifiers: Diabetes mellitus complication status: without complication Diabetes mellitus mcfp insulin use: unspecified mcfp insulin use status Qualified Code(s): E11.9 - Type 2 diabetes mellitus without complications (8) HTN (hypertension): Qualifiers: Hypertension type: primary hypertension Qualified Code(s): I10 - Essential (primary) hypertension Plan 84 yo M w/ PMH of HTN, DM, HLD, CAD, HFrEF and diverticulitis who presented on 01/11 for laparoscopic hand assisted sigmoidectomy with MECHANICAL PRODUCT ENGINEER anastomosis and due to adhesions underwent open lysis of adhesions and small bowel resection. Due to the significant inflammation of his colon and scarring of his small bowel he had a prolonged surgery with need for open mobilization and bowel resection. Afterwards he was admitted to the ICU for close monitoring and had TLC placed in the R IJ for access and borderline hypotension. This AM he had a fever to 102 and transient hypoxia for whicha fever work up was initiated, at the time of my exam he had already defervesced to 100.4. Neuro - Pain controlled - Alert and oriented x 4 - Continue tylenol and dilaudid for pain control CVS - BP better on lower metoprolol dose - Continue Metoprolol 2.5 q6 - Continue to monitor Resp - Doing well on 2L NC - CXR obtained, appears to have fluid overload and R basilar consolidation - Lasix 20 IV today - Continue to monitor GI - Keep NGT - Await ROBF - Protonix for GI ppx - Maintain Wadsworth; consider d/c after lasix - Net positive 9L since admission, mIVF decreased to 75 - Lasix 20 IV today - UOP ~1ml/kg/hr, continue to monitor Endo - Monitor BG, currently in target - Insulin orders placed, BG target 140-180 Heme - Hgb 9.4 from .8, likely partially dilutional from net 9L positive - Continue HSQ, no overt signs of bleeding - Continue to monitor ID - WBC downtrending slightly - Nishasyn started this AM in response to fever and CXR - Continue to monitor MSK - OOB ambulate with RN assistance ad ortega - PT ordered Lines/Drains - Wadsworth, maintain for strict I's&O's in ICU care - TLC, maintain for access and possible pressors in ICU care - VALERIANO, postoperative, continue to monitor The high probability of a clinically significant, sudden or life threatening deterioration of this patient required my full and direct attention, intervention and personal management. The aggregate critical care time was 60 minutes. This time is in addition to time spent performing reported procedures but includes data review and interpretation, patient assessment and monitoring of vital signs, documentation and medication orders and management.
[2025-01-13] MEDS ORDERED: SODIUM CHLORIDE 0.9% 250 ML IV ONE (08:42)
[2025-01-13] MEDS: PIPERACILLIN/TAZOBACTAM 3.375 GM in SODIUM CHLORIDE 0.9% MINIBAG 100 ML IV ONE (08:44)
[2025-01-13] MEDS: POTASSIUM CHLOR 10 MEQ/100 ML 10 MEQ/100 ML BAG IV ONE (08:45)
[2025-01-13] MEDS: SODIUM PHOSPHATE 15 MMOL in SODIUM CHLORIDE 0.9% 250 ML IV SCH (09:28)
[2025-01-13] MEDS: FUROSEMIDE 20 MG/2 ML VIAL IVP ONE (09:30)
--- NOTE | 2025-01-13 09:36 | PROVIDER PROGRESS NOTE ---
<Statement entered by Dwight Hall, DO - 01/13/25 16:29> I was present with the medical student on the hospitalist service. I personally verified the history of present illness and performed the physical examination and medical decision making. I have verified the medical students documentation for this encounter and agree with the plan of care below. In addition 84-year-old gentleman who comes in for elective sigmoidectomy in the setting of recurrent diverticulitis. He is now postop and has had a relatively uneventful postoperative course. He remains in the ICU because of initially soft blood pressures. He is still critically ill. He has not had returned of his bowel function. He had a high-grade fever this morning. Infectious workup is ongoing, but suggestive of a right sided pneumonia. He has been started on broad-spectrum antibiotics. Follow-up his blood cultures, and stepdown therapy in the next few days. Likely empirically treat for 5 days. Will trend CBC in the morning. Continue to monitor electrolytes. Surgery helping to replete his replating his electrolytes. He is surgery is also step back on his fluids today and giving a dose of IV Lasix. His hypoxemia is improving. If his fever is not resolving, consider CTA to rule out PE. His heart rate is still fast despite being on scheduled beta-blockers. Mildly hypoxemic. However I would still favor infection given his chest x-ray. Consider starting on PPN in the next 1 to 2 days if ileus is not resolved. Subjective Prog Note Date Prog Note Date: 01/13/25 Prog Note Time: 09:43 Subjective Pt reports feeling: No change Subjective: Had fever this morning 39.4. Tachypneic 26. Had desaturations to 90, placed on 2L NC. His blood pressures have otherwise improved 110/46. Fever is resolved now and now back on RA. Patient continues to endorses abdominal pain, even with increased dose of Dilaudid 0.5 q2H. Not exquisitely tender but could be better controlled. Denies any chills, nausea or vomit. Still no flatus. Denies any cough, dyspnea, chest pain or palpitations. Current Medications Current Medications Current Medications: Current Medications Generic Name Dose Route Start Last Admin Trade Name Freq PRN Reason Stop Dose Admin Benzocaine/Butamben/Tetracaine HCl 1 sprays 01/11/25 16:27 Benzocaine/Tetracaine/Butamben 20 Gm MM DAILY PRN Throat Pain Furosemide 20 mg 01/13/25 10:00 01/13/25 09:30 Furosemide 20 Mg/2 Ml Vial IVP 01/13/25 10:01 20 mg ONCE ONE Administration Heparin Sodium (Porcine) 5,000 unit 01/12/25 14:00 01/13/25 05:33 Heparin 5,000 Unit/Ml Vial SUBQ 5,000 unit TID [facility] Administration Hydromorphone HCl 1 mg 01/13/25 09:19 Hydromorphone 0.5 Mg/0.5 Ml Syringe IVP Q4H PRN Severe Pain (Level 7-10) Acetaminophen 1,000 mg in 100 mls @ 400 mls/hr 01/11/25 18:00 01/13/25 06:00 Acetaminophen IV Infused Q6HR [facility] Infusion Dextrose/Sodium Chloride 1,000 mls @ 75 mls/hr 01/12/25 08:00 01/13/25 06:09 D5.45ns IV 125 mls/hr .[id number] [facility] Administration Piperacillin Sod/Tazobactam 100 mls @ 25 mls/hr 01/13/25 12:00 Sod 3.375 gm/ Sodium Chloride IV Q8H [facility] Sodium Phosphate 15 mmol/ 255 mls @ 63.75 mls/hr 01/13/25 08:00 01/13/25 09:28 Sodium Chloride IV 01/13/25 15:59 63.75 mls/hr Q4H [facility] Administration Insulin Human Regular 1 - 5 unit 01/12/25 12:00 01/13/25 05:33 Insulin Regular, Human 300 Unit/3 Ml Pen SUBQ Not Given Q6HR [facility] Protocol Metoprolol Tartrate 2.5 mg 01/13/25 06:00 01/13/25 05:25 Metoprolol 5 Mg/5 Ml Vial IVP 2.5 mg Q6H [facility] Administration Ondansetron HCl 4 mg 01/11/25 16:27 Ondansetron 4 Mg/2 Ml Vial IVP Q6H PRN Nausea / Vomiting Pantoprazole Sodium 40 mg 01/12/25 07:00 01/13/25 06:09 Pantoprazole 40 Mg Vial IVP 40 mg QDAC [facility] Administration Sodium Chloride 10 ml 01/11/25 17:00 01/13/25 08:56 Sodium Chloride Flush 0.9% 10 Ml Syringe IVP 10 ml 0100,0900,1700 [facility] Administration Sodium Chloride 10 ml 01/11/25 16:27 01/13/25 03:37 Sodium Chloride Flush 0.9% 10 Ml Syringe IVP 10 ml PRN PRN Administration NEEDED PER PROVIDER ORDERS Objective Vital Signs/Intake & Output Reviewed Vital Signs: Yes Vital Signs: Vital Signs x48h Temp Pulse Pulse Resp BP BP Pulse Ox 01/13/25 09:00 88 25 H 110/46 L 92 01/13/25 08:00 36.6 C 93 25 H 113/45 L 93 01/13/25 07:00 93 25 H 129/51 L 96 01/13/25 06:38 39.4 C H 01/13/25 06:00 36.7 C 92 26 H 100/42 L 93 01/13/25 05:55 90 L 01/13/25 05:45 90 L 01/13/25 05:25 108 H 139/56 H 01/13/25 05:00 109 H 24 112/90 98 01/13/25 04:00 37.0 C 94 24 135/52 H 95 01/13/25 02:59 93 27 H 123/45 L 01/13/25 02:00 37.6 C 89 27 H 123/48 L 95 O2 Flow Rate 01/13/25 09:00 2 01/13/25 08:00 2 01/13/25 07:00 2 01/13/25 06:38 01/13/25 06:00 2 01/13/25 05:55 01/13/25 05:45 01/13/25 05:25 01/13/25 05:00 01/13/25 04:00 01/13/25 02:59 95 01/13/25 02:00 Intake & Output: Intake & Output 01/10/25 01/11/25 01/12/25 01/13/25 23:59 23:59 23:59 22:59 Intake Total 7312 / 7312 2902 / 2902 2010 Output Total 670 / 670 1530 / 1530 875 / 875 Balance 6642 / 6642 1372 / 1372 1136 / 1136 Weight (kg) 92.5 kg Objective Comments/Other: Gen: Well nourished and well developed. No acute distress Heent: Normocephalic/atraumatic, normal appearance of external ears and nose. R IJ line. NGT with 800cc bilious output on low intermittent suction. Cardiac: Regular rate and rhythm. No murmurs appreciated. No visible JVP elevation. Equal radial pulses 2+ Pulm: On 2L NC. Normal respirations without increased effort. Clear to auscultation throughout without wheezes, rales or rhonchi. Abdomen: Soft, rounded, appropriately tender. No rebound tenderness or guarding. Midline incision well dressed, clean and intact. VALERIANO drain in R abdomen with small amount serosanguinous fluid. : [place] patent with yellow urine Extremities: Moves all 4 extremities equally. Normal tone. Neuro: Face symmetric, CN II through XII intact grossly. No focal neurologic deficits. Psych: Mood euthymic with congruent affect. Good fund of knowledge. Judgment intact. Lab Results 01/13/25 04:17 01/13/25 04:17 Other Labs: Lab Results x24hrs 01/13/25 01/13/25 01/13/25 Range/Units 07:55 04:17 00:13 WBC 15.2 H (4.8-10.8) x10^3/uL RBC 3.33 L (4.70-6.10) 10^6/uL Hgb 9.4 L (14.0-18.0) g/dL Hct 31.6 L (42.0-52.0) % MCV 94.9 H (80.0-94.0) fL MCH 28.2 (27.0-31.0) pg MCHC 29.7 L (32.0-36.0) g/dL RDW 15.6 H (12.0-15.0) % Plt Count 172 (130-450) 10^3/uL MPV 12.2 H (7.4-11.4) fL Neut # (Auto) 14.2 H (1.5-6.6) 10^3/uL Lymph # (Auto) 0.5 L (1.5-3.5) 10^3/uL Stephens # (Auto) 0.5 (0.0-1.0) 10^3/uL Eos # (Auto) 0.0 (0.0-0.7) 10^3/uL Baso # (Auto) 0.0 (0.0-0.1) 10^3/uL Absolute Nucleated RBC 0.00 x10^3/uL Nucleated RBC % 0.0 /100WBC Sodium 130 L (135-145) mmol/L Potassium 3.9 (3.5-4.5) mmol/L Chloride 101 (101-111) mmol/L Carbon Dioxide 25 (21-32) mmol/L Anion Gap 4.0 L (6-13) BUN 17 (6-20) mg/dL Creatinine 1.1 (0.6-1.3) mg/dL Estimated GFR (MDRD) 64 L (>89) Glucose 152 H (74-104) mg/dL POC Whole Bld Glucose 153 (70-100) mg/dL Calcium 7.8 L (8.5-10.3) mg/dL Phosphorus 1.9 L (2.5-5.0) mg/dL Magnesium 2.0 (1.7-2.3) mg/dL Urine Color YELLOW Urine Clarity CLEAR (CLEAR) Urine pH 6.0 (5.0-7.5) PH Ur Specific [place] 1.020 (1.002-1.030) Urine Protein 30 H (NEGATIVE) mg/dL Urine Glucose (UA) NEGATIVE (NEGATIVE) mg/dL Urine Ketones NEGATIVE (NEGATIVE) mg/dL Urine Occult Blood SMALL (NEGATIVE) Urine Nitrite NEGATIVE (NEGATIVE) Urine Bilirubin NEGATIVE (NEGATIVE) Urine Urobilinogen 0.2 (NORMAL) (NORMAL) E.U./dL Ur Leukocyte Esterase NEGATIVE (NEGATIVE) Urine RBC 6-10 H (0-5) /HPF Urine WBC 0-3 (0-3) /HPF Ur Squamous Epith Cells RARE Squamous (<= Few) Urine Bacteria Rare (None Seen) /HPF Urine Casts 0-2 Hyaline Casts /LPF Urine Culture Comments NOT INDICATED 01/12/25 01/12/25 Range/Units 17:42 11:51 WBC (4.8-10.8) x10^3/uL RBC (4.70-6.10) 10^6/uL Hgb (14.0-18.0) g/dL Hct (42.0-52.0) % MCV (80.0-94.0) fL MCH (27.0-31.0) pg MCHC (32.0-36.0) g/dL RDW (12.0-15.0) % Plt Count (130-450) 10^3/uL MPV (7.4-11.4) fL Neut # (Auto) (1.5-6.6) 10^3/uL Lymph # (Auto) (1.5-3.5) 10^3/uL Stephens # (Auto) (0.0-1.0) 10^3/uL Eos # (Auto) (0.0-0.7) 10^3/uL Baso # (Auto) (0.0-0.1) 10^3/uL Absolute Nucleated RBC x10^3/uL Nucleated RBC % /100WBC Sodium (135-145) mmol/L Potassium (3.5-4.5) mmol/L Chloride (101-111) mmol/L Carbon Dioxide (21-32) mmol/L Anion Gap (6-13) BUN (6-20) mg/dL Creatinine (0.6-1.3) mg/dL Estimated GFR (MDRD) (>89) Glucose (74-104) mg/dL POC Whole Bld Glucose 146 143 (70-100) mg/dL Calcium (8.5-10.3) mg/dL Phosphorus (2.5-5.0) mg/dL Magnesium (1.7-2.3) mg/dL Urine Color Urine Clarity (CLEAR) Urine pH (5.0-7.5) PH Ur Specific [place] (1.002-1.030) Urine Protein (NEGATIVE) mg/dL Urine Glucose (UA) (NEGATIVE) mg/dL Urine Ketones (NEGATIVE) mg/dL Urine Occult Blood (NEGATIVE) Urine Nitrite (NEGATIVE) Urine Bilirubin (NEGATIVE) Urine Urobilinogen (NORMAL) E.U./dL Ur Leukocyte Esterase (NEGATIVE) Urine RBC (0-5) /HPF Urine WBC (0-3) /HPF Ur Squamous Epith Cells (<= Few) Urine Bacteria (None Seen) /HPF Urine Casts /LPF Urine Culture Comments Diagnostic Imaging Diagnostic Imaging Results: positive Final report reviewed Diagnostic Imaging Comments: 01-11-2025 CXR comfirms position of NGT. Pneumoperitoneum noted. No acute cardiopulmonary process. 12-31-2024 ECHO LVEF estimated at 35-40%. Global left ventricular systolic function moderately decreased. L and R atrium are mild to moderately dilated. RVSP 43mmHg. Assessment/Plan Problem List (1) Diverticulitis large intestine: (2) Small bowel obstruction: Impression: S/p Lap sigmoidectomy with extensive MAYA and 2 anastamoses 01/11. For chronic diverticulitis and small bowel obstruction with adhesions. Post-operatively complicated by hypotension (see below), this has resolved. Has not yet had returned of bowel function. Not passing gas. Continue to monitor. - Surgery is primary - Pain mgmt with scheduled 1g IV Tylenol and 1mg Dilaudid q4H prn - Continuing bowel rest/NGT, npo status o Consider starting PPN 01/14, otherwise continuing maintenance fluids - PT/OT recommending SNF, could alternatively stay with his partner If he advances during his hospitalization - Encourage IS and mobility as tolerated - Heparin SQ 3 times daily for DVT ppx - Repeat BMP and CBC in am - Replete electrolytes as necessary (Mg, Phos, K, Ca) (3) Fever: (4) Leukocytosis: Impression: Patient had new fever 39.4 morning of 01/13. This could be due to pain or new infection, post-operative atelectasis. Lower suspicion for PE, On heparin, heart rate consistently less than 100 though he is on beta-adam. Septic work-up obtained. CXR showing new patchy R sided opacity. Started him on Unasyn, will treat as pneumonia. UA is not suggestive of infection. Patient does not endorse any cough fevers or chills. Has appropriate urine output with Wadsworth. Patient had a leukocytosis postoperatively. This was downtrending. Fever started on postop day 2. - Started on zosyn - Toradol 15 mg every 6 hours as needed x 2 doses for any fevers greater than 101 F - Follow blood cultures - If continuing to fever may need CTA - Monitor CBC a.m. (5) Hypotension after procedure: Impression: Resolved. Differential includes hypovolemia versus delayed anesthetic effect versus medication side effect. Patient is not symptomatic. He is not lightheaded, feels well. Appropriate UO. Fluids have been stopped. - Fluids slowed to 75/h by surgery. - Lopressor IV 2.5 mg every 6 hours - If urine output drops off, or patient otherwise symptomatic (encephalopathy, chest pain, dyspnea), will start on pressors, possibly dobutamine versus Levophed (6) Chronic HFrEF (heart failure with reduced ejection fraction): Impression: Not in acute decompensation. Clinically dry on exam. Most recent ECHO 12-31-2024 reveals EF 35-40% which is stable when compared to prior -2023. GDMT home meds include only metoprolol and lisinopril. No MRA or SGLTi. Additionally is on Lasix 20 to 40 mg based on swelling in his lower extremities. Frequently 20 daily. Patient says he has soft blood pressures normally, as possible he was not started on these agents because of their hemodynamic effect. - Hold GDMT meds for now given his hypotension - Getting 1 dose of IV Lasix today, evidence of interstitial opacities on chest x-ray (7) Atrial fibrillation: Impression: CHADVASC 8. HASBLED 3. Hx of CAD s/p PCIx2. Taking low dose aspirin and Xarelto. - Hold Xarelto while npo - On heparin for DVT ppx - Likely discontinue aspirin when we resume his home meds, he does not need to be on ASA and a DOAC. Qualifiers: Atrial fibrillation type: unspecified Qualified Code(s): I48.91 - Unspecified atrial fibrillation (8) DM type 2 (diabetes mellitus, type 2): Impression: A1c 6.8. Not diabetic home meds listed. - SSI prn Qualifiers: Diabetes mellitus complication status: without complication Diabetes mellitus terminal operator insulin use: unspecified terminal operator insulin use status Q ualified Code(s): E11.9 - Type 2 diabetes mellitus without complications (9) HTN (hypertension): Impression: Home lisinopril 5mg I spent a total of 62 minutes in the care of this patient today. This time was spent reviewing labs, vital signs, imaging, interviewing and examining the patient, and discussing plan of care with them and their other care providers. Continues to remain critically ill in the ICU. Requiring close monitoring. At risk for decompensation. He fevered today with signs of sepsis. Septic workup as above. Discussed his case with general surgery today. Reviewed data today including leukocytosis, kidney function, blood cultures, urinalysis, chest x- ray. Qualifiers: Hypertension type: primary hypertension Qualified Code(s): I10 - Essential (primary) hypertension
[2025-01-13] MEDS: HYDROmorphone 0.5 MG/0.5 ML SYRINGE IVP PRN (11:06)
[2025-01-13 11:07] LABS: ESTIMATED AVERAGE GLUCOSE 143 mg/dL (70-100); HEMOGLOBIN A1c% 6.6 % (4.27-6.07)
[2025-01-13] MEDS: PIPERACILLIN/TAZOBACTAM 3.375 GM in SODIUM CHLORIDE 0.9% MINIBAG 100 ML IV SCH (11:12)
--- NOTE | 2025-01-13 16:49 | PT Plan of Care ---
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 Piper path-Neg 12/28/2016 [facility] [address]. Ha mild diverticulosis . [facility] Dr. Horton 11/08/2012 2 benign TA S/P CABG x 2 (~05/2022) with 2 stents History of transurethral resection of prostate (~2011) Hx of hemorrhoidectomy (~1999) History of tonsillectomy History of appendectomy (~1953) BALANCE/FUNCTIONAL RESULTS Sitting Balance: Good Standing Balance: Fair ASSESSMENT Assessment: The pt is an 84 y/o M who arrived for an elective abdominal surgery on 01/11/25, he is now s/p sigmoid colon resection for SBO and diverticulitis. He was hospitalized post-operatively due to hypotension. PMH includes multiple SBO's, HFrEF, a-fib, DM2, and HTN. Please see chart for complete medical hx. The pt was received resting comfortably sitting up in a recliner while visiting with his significant other. He presented today with decreased B UE and LE strength, decreased activity tolerance, and increased abdominal which limited his tolerance during functional mobility. His overall tolerance throughout this assessment was limited by weakness, fatigue, and pain. His RN was present and assisting throughout due to the pt's functional limitations and for line manage ment during gait assessment. At this time recommend continued skilled PT intervention while in the acute setting and DC to SNF for further rehab once pt medically stable as he is functioning far below his very independent baseline. This plan was discussed with the pt and he was in agreement with this. At the end of the session the pt was sitting up in a chair with call light in reach and all needs met while his RN was tending to reported discomfort from his [place]. RN, PHYSICIAN IN PRIVATE PRACTICE, and MD all updated on pt's status and DC rec. PATIENT/FAMILY GOALS Patient/Family Goals: To regain some strength and be able to get back home GOALS Improve supine to sit to:: Minimal Assist Improve sit to stand to:: Minimal Assist Improve pivot transfer ability to:: Minimal Assist Improve sit to supine to:: Minimal Assist Improve gait ability to:: Min A Advance Assistive Device to:: Front Wheeled Walker Increase distance walked to (in feet):: 25 PLAN Frequency: 1-2x/day Duration: Until discharge DISCHARGE RECOMMENDATIONS Discharge Location: [facility]Way Facility Support/Services Needed: With assist Other Discharge Equipment: TBD as pt progresses Transport Needs at Discharge: WC v BLS pending distance
[2025-01-14 04:19] LABS: HCT - HEMATOCRIT 25.6 % (42.0-52.0); HGB - HEMOGLOBIN 7.9 g/dL (14.0-18.0); MEAN PLATELET VOLUME 11.5 fL (7.4-11.4); NRBC ABSOLUTE COUNT (AUTO) 0.00 x10^3/uL; NUCLEATED RED BLOOD CELLS AUTO 0.0 /100WBC; PLT - PLATELET COUNT 144 10^3/uL (130-450); RED CELL DISTRIBUTION WIDTH 15.6 % (12.0-15.0)
[2025-01-14 04:32] LABS: BUN - BLOOD UREA NITROGEN 14.0 mg/dL (6-20); CARBON DIOXIDE - CO2 25.0 mmol/L (21-32); CREATININE 1.1 mg/dL (0.6-1.3); GFR - MDRD 64.0 (>89); PHOSPHORUS 2.5 mg/dL (2.5-5.0)
--- NOTE | 2025-01-14 06:38 | PROVIDER PROGRESS NOTE ---
Elementary School Teacher Note Elementary School Teacher Note Elementary School Teacher Note: I was notified by RN to address blood culture, Blood culture is staph epididermidis, not sure in clinical context, defer to rounding AM to review blood culture, Defer to day team to address culture
--- NOTE | 2025-01-14 09:13 | PROVIDER PROGRESS NOTE ---
<Statement entered by Dwight Hall, DO - 01/14/25 16:51> I was present with the medical student on the hospitalist service. I personally verified the history of present illness and performed the physical examination and medical decision making. I have verified the medical students documentation for this encounter and agree with the plan of care below. In addition 84-year-old gentleman who came in for an elective sigmoidectomy for recurrent diverticulitis. Admitted to surgery. He is still in the ICU. Likely could come out of the ICU, but deferred to surgery. He is starting to have some return of bowel function. His diet has been advanced to clears as of this evening. He is having bowel movements. He is being recommended for mcc by PT, but has opted to go home with family. Likely medically safe to do so in the next 1 to 2 days. He had a complication of his course with fevers on postoperative day 2. Source is likely a right sided pneumonia. He has been started on Zosyn and stabilized out. No longer fevering. Likely can de-escalate to ceftriaxone on 01/15. His blood cultures are positive for staph epi and 1 out of 4 bottles. This is likely a contaminant. He has not been started on vancomycin and is improving. His NG tube was removed today. Wadsworth catheter removed today. He still has a central line in his right IJ that can likely be removed in the next 1 to 2 days. Will resume his GDMT tomorrow. Blood sugars remain controlled. Consider resuming his DOAC in the next 1 to 2 days, has been stable on SQH for VTE prophylaxis. Subjective Prog Note Date Prog Note Date: 01/14/25 Prog Note Time: 09:13 Subjective Pt reports feeling: Improved Subjective: Remains vitally stable with blood pressures normalized 120s/50s. Did not fever overnight and remains afebrile. No fevers or chills. Denies any cough or chest pain. He is sitting up comfortably in the chair on RA with his abdominal pain improved. Otherwise, NGT removed today with return of bowel function, liquid brown stool without blood. Will advance slowly to clear liquids tonight. Denies any skin rash. No nausea or vomit. Current Medications Current Medications Current Medications: Current Medications Generic Name Dose Route Start Last Admin Trade Name Freq PRN Reason Stop Dose Admin Benzocaine/Butamben/Tetracaine HCl 1 sprays 01/11/25 16:27 Benzocaine/Tetracaine/Butamben 20 Gm MM DAILY PRN Throat Pain Heparin Sodium (Porcine) 5,000 unit 01/12/25 14:00 01/14/25 05:58 Heparin 5,000 Unit/Ml Vial SUBQ 5,000 unit TID GILMAR Administration Hydromorphone HCl 1 mg 01/13/25 09:19 01/14/25 04:18 Hydromorphone 0.5 Mg/0.5 Ml Syringe IVP 1 mg Q4H PRN Administration Severe Pain (Level 7-10) Acetaminophen 1,000 mg in 100 mls @ 400 mls/hr 01/11/25 18:00 01/14/25 06:22 Acetaminophen IV Infused Q6HR [facility] Infusion Dextrose/Sodium Chloride 1,000 mls @ 75 mls/hr 01/12/25 08:00 01/14/25 08:19 D5.45ns IV 75 mls/hr .[id number] GILMAR Administration Piperacillin Sod/Tazobactam 100 mls @ 25 mls/hr 01/13/25 12:00 01/14/25 08:16 Sod 3.375 gm/ Sodium Chloride IV Infused Q8H GILMAR Infusion Insulin Human Regular 1 - 5 unit 01/12/25 12:00 01/14/25 06:06 Insulin Regular, Human 300 Unit/3 Ml Pen SUBQ Not Given Q6HR [facility] Protocol Ketorolac Tromethamine 15 mg 01/13/25 13:15 Ketorolac 15 Mg/Ml Vial IVP Q6HR PRN Fever >101 Metoprolol Tartrate 2.5 mg 01/13/25 06:00 01/14/25 05:58 Metoprolol 5 Mg/5 Ml Vial IVP 2.5 mg Q6H GILMAR Administration Ondansetron HCl 4 mg 01/11/25 16:27 Ondansetron 4 Mg/2 Ml Vial IVP Q6H PRN Nausea / Vomiting Pantoprazole Sodium 40 mg 01/12/25 07:00 01/14/25 06:40 Pantoprazole 40 Mg Vial IVP 40 mg QDAC GILMAR Administration Sodium Chloride 10 ml 01/11/25 17:00 01/14/25 08:20 Sodium Chloride Flush 0.9% 10 Ml Syringe IVP 10 ml 0100,0900,1700 GILMAR Administration Sodium Chloride 10 ml 01/11/25 16:27 01/14/25 04:05 Sodium Chloride Flush 0.9% 10 Ml Syringe IVP 10 ml PRN PRN Administration NEEDED PER PROVIDER ORDERS Objective Vital Signs/Intake & Output Reviewed Vital Signs: Yes Vital Signs: Vital Signs x48h Temp Pulse Pulse Resp BP BP Pulse Ox 01/14/25 08:00 37 C 80 19 129/54 L 94 01/14/25 07:00 78 21 116/51 L 93 01/14/25 06:00 85 21 140/62 H 97 01/14/25 05:58 86 140/62 H 01/14/25 05:00 80 20 130/51 L 94 01/14/25 04:00 36.9 C 77 24 130/56 L 97 01/14/25 03:00 79 20 117/57 L 93 01/14/25 02:00 83 23 119/54 L 93 Intake & Output: Intake & Output 01/11/25 01/12/25 01/13/25 01/14/25 23:59 23:59 22:59 23:59 Intake Total 7312 / 7312 2902 / 2902 4090 / 3990 1330 / 1330 Output Total 670 / 670 1530 / 1530 2363 / 2298 887 / 887 Balance 6642 / 6642 1372 / 1372 1727 / 1692 443 / 443 Weight (kg) 92.5 kg Objective Comments/Other: Gen: Well nourished and well developed. No acute distress, sitting up now in his chair breathing comfortably on RA. Heent: Normocephalic/atraumatic, normal appearance of external ears and nose. R IJ line. NGT removed. Cardiac: Regular rate and rhythm. No murmurs appreciated. No visible JVP elevation. Equal radial pulses 2+ Pulm: Normal respirations without increased effort. Clear to auscultation throughout without wheezes, rales or rhonchi. Abdomen: Soft, rounded, appropriately tender. No rebound tenderness or guarding. Midline incision well dressed, clean and intact. VALERIANO drain in R abdomen with small amount serosanguinous fluid. : Wadsworth patent with yellow urine Extremities: Moves all 4 extremities equally. Normal tone. Neuro: Face symmetric, CN II through XII intact grossly. No focal neurologic deficits. Psych: Mood euthymic with congruent affect. Good fund of knowledge. Judgment intact. Lab Results 01/14/25 13:59 01/14/25 04:00 Other Labs: Lab Results x24hrs 01/14/25 01/14/25 01/13/25 Range/Units 05:56 04:00 23:46 WBC 11.0 H (4.8-10.8) x10^3/uL RBC 2.76 L (4.70-6.10) 10^6/uL Hgb 7.9 L (14.0-18.0) g/dL Hct 25.6 L (42.0-52.0) % MCV 92.8 (80.0-94.0) fL MCH 28.6 (27.0-31.0) pg MCHC 30.9 L (32.0-36.0) g/dL RDW 15.6 H (12.0-15.0) % Plt Count 144 (130-450) 10^3/uL MPV 11.5 H (7.4-11.4) fL Neut # (Auto) 9.8 H (1.5-6.6) 10^3/uL Lymph # (Auto) 0.5 L (1.5-3.5) 10^3/uL [place] # (Auto) 0.4 (0.0-1.0) 10^3/uL Eos # (Auto) 0.1 (0.0-0.7) 10^3/uL Baso # (Auto) 0.0 (0.0-0.1) 10^3/uL Absolute Nucleated RBC 0.00 x10^3/uL Nucleated RBC % 0.0 /100WBC Sodium 133 L (135-145) mmol/L Potassium 3.3 L (3.5-4.5) mmol/L Chloride 103 (101-111) mmol/L Carbon Dioxide 25 (21-32) mmol/L Anion Gap 5.0 L (6-13) BUN 14 (6-20) mg/dL Creatinine 1.1 (0.6-1.3) mg/dL Estimated GFR (MDRD) 64 L (>89) Glucose 122 H (74-104) mg/dL POC Whole Bld Glucose 109 103 (70-100) mg/dL Estimat Average Glucose (70-100) mg/dL Hemoglobin A1c % (4.27-6.07) % Calcium 7.5 L (8.5-10.3) mg/dL Phosphorus 2.5 (2.5-5.0) mg/dL Magnesium 1.9 (1.7-2.3) mg/dL 01/13/25 01/13/25 01/13/25 Range/Units 17:52 11:29 04:17 WBC (4.8-10.8) x10^3/uL RBC (4.70-6.10) 10^6/uL Hgb (14.0-18.0) g/dL Hct (42.0-52.0) % MCV (80.0-94.0) fL MCH (27.0-31.0) pg MCHC (32.0-36.0) g/dL RDW (12.0-15.0) % Plt Count (130-450) 10^3/uL MPV (7.4-11.4) fL Neut # (Auto) (1.5-6.6) 10^3/uL Lymph # (Auto) (1.5-3.5) 10^3/uL [place] # (Auto) (0.0-1.0) 10^3/uL Eos # (Auto) (0.0-0.7) 10^3/uL Baso # (Auto) (0.0-0.1) 10^3/uL Absolute Nucleated RBC x10^3/uL Nucleated RBC % /100WBC Sodium (135-145) mmol/L Potassium (3.5-4.5) mmol/L Chloride (101-111) mmol/L Carbon Dioxide (21-32) mmol/L Anion Gap (6-13) BUN (6-20) mg/dL Creatinine (0.6-1.3) mg/dL Estimated GFR (MDRD) (>89) Glucose (74-104) mg/dL POC Whole Bld Glucose 131 117 (70-100) mg/dL Estimat Average Glucose 143 H (70-100) mg/dL Hemoglobin A1c % 6.6 H (4.27-6.07) % Calcium (8.5-10.3) mg/dL Phosphorus (2.5-5.0) mg/dL Magnesium (1.7-2.3) mg/dL Diagnostic Imaging Diagnostic Imaging Results: positive Final report reviewed Diagnostic Imaging Comments: 01-13-2025 CXR reveals new R sided basilar opacity. Enlarged cardiac silhouette and prominent kimberlee unchanged. 01-11-2025 CXR confirms position of NGT. RIJ line. Pneumoperitoneum noted. No acute cardiopulmonary process. 12-31-2024 ECHO LVEF estimated at 35-40%. Global left ventricular systolic function moderately decreased. L and R atrium are mild to moderately dilated. RVSP 43mmHg. Assessment/Plan Problem List (1) Diverticulitis large intestine: (2) Small bowel obstruction: Impression: Return of bowel function today, liquid stool. Removed NGT, will slowly advance diet as able. Plan for clear liquid for dinner. VALERIANO drain with minimal SS output. Wadsworth is also removed today. Pain is improved and encouraging mobility as able. S/p Lap sigmoidectomy with extensive MAYA and 2 anastamoses 01/11. For chronic diverticulitis and small bowel obstruction with adhesions. Post-operatively complicated by hypotension (see below), this has resolved. - Surgery remains primary - Pain mgmt with scheduled 1g IV Tylenol and 1mg Dilaudid q4H prn - Advancing diet slowly to clear liquids - PT/OT recommending SNF, could alternatively stay with his partner If he advances during his hospitalization - Encourage continued IS and mobility as tolerated - Heparin SQ 3 times daily for DVT ppx - Repeat BMP and CBC in am - Repleting electrolytes as necessary (Mg, Phos, K, Ca) (3) Fever: (4) Leukocytosis: Impression: Remains afebrile and vitally stable. Leukocytosis is improving, 15->11. Pain is improved as well. 1/4 blood culture bottles positive for Staph Epi, this is likely a contamination. We will continue to keep RIJ line in place for now as his peripheral lines have been difficult to access. Continue treatment of R sided pneumonia, as seen on recent CXR. UA was not suggestive of infection. Patient continues to have clinical improvement without cough fevers or chills. - Continue zosyn, likely narrow to ceftriaxone if he continues to do well clinically - Toradol 15 mg every 6 hours as needed x 2 doses for any fevers greater than 101 F - Follow blood cultures - Monitor CBC am. (5) Anemia: Impression: Hgb 9.4->7.9. I suspect this is reflective of post-operative blood loss. Patient has no evidence of bleeding and is improving clinically. - Will repeat H&H in the afternoon. - If continues to decline, will consider transfusion. Reeves transfusion threshold Hgb 7-8 favored given his known history of HFrEF and CAD. - Continue CBC in am. (6) Hypotension after procedure: Impression: Resolved. Differential includes hypovolemia versus delayed anesthetic effect versus medication side effect. Patient is not symptomatic. He is not lightheaded, feels well. Appropriate UO. - Fluids slowed to 75/h by surgery, will stop as soon as he is able to tolerate po. - Lopressor IV 2.5 mg every 6 hours (7) Chronic HFrEF (heart failure with reduced ejection fraction): Impression: Not in acute decompensation. Clinically dry on exam. Most recent ECHO 12-31-2024 reveals EF 35-40% which is stable when compared to prior . GDMT home meds include only metoprolol and lisinopril. No MRA or SGLTi. Additionally is on Lasix 20 to 40 mg based on swelling in his lower extremities. Frequently 20 daily. Patient says he has soft blood pressures normally, as possible he was not started on these agents because of their hemodynamic effect. - Hold GDMT meds for now given his hypotension - Getting 1 dose of IV Lasix today, evidence of interstitial opacities on chest x-ray (8) Atrial fibrillation: Impression: CHADVASC 8. HASBLED 3. Hx of CAD s/p PCIx2. Taking low dose aspirin and Xarelto. - On heparin for DVT ppx - Can consider restarting his Xarelto when he is able to tolerate po - Likely discontinue aspirin when we resume his home meds, he does not need to be on ASA and a DOAC. Qualifiers: Atrial fibrillation type: unspecified Qualified Code(s): I48.91 - Unspecified atrial fibrillation (9) DM type 2 (diabetes mellitus, type 2): Impression: A1c 6.8. Not diabetic home meds listed. - SSI prn Qualifiers: Diabetes mellitus complication status: without complication Diabetes mellitus senior living insulin use: unspecified senior living insulin use status Q ualified Code(s): E11.9 - Type 2 diabetes mellitus without complications (10) HTN (hypertension): Impression: Home lisinopril 5mg I spent a total of 48 minutes in the care of this patient today. This time was spent reviewing labs, vital signs, imaging, interviewing and examining the patient, and discussing plan of care with them and their other care providers Qualifiers: Hypertension type: primary hypertension Qualified Code(s): I10 - Essential (primary) hypertension
[2025-01-14] MEDS: POTASSIUM CHLOR 10 MEQ/100 ML 10 MEQ/100 ML BAG IV SCH (10:10)
--- NOTE | 2025-01-14 10:15 | PROVIDER PROGRESS NOTE ---
Subjective General Admit Date: 01/11/25 Procedure Date: 01/11/25 Post Op Days: 3 Procedure Performed: Lap hand assist sigmoidectomy w/ INDUSTRIAL MILLWRIGHT, open SBR and MAYA Other Other Information/Narrative: POD3. OOBTC this AM, worked with PT yesterday. Pain very well controlled outside of occasional abdominal spasm. Febrile yesterday with hypoxia, CXR suggestive of pna and started on zosyn, blood cx returned MAKENNA contaminent. HDN & AF overnight. NGT with 3-400cc / last 24hr and light gastric color, abdomen is soft without distension and he feels flatus "is imminent". 2L UOP yesterday and Cr has normalized to 1.1 from 1.4. Hgb down 1.5 points but no persistent tachycardia and VALERIANO drain with 80cc light ssf - not concerning for intraabdominal bleeding based on exam/VALERIANO. Wound Assessment Wound/Incisions: positive Dressing dry and intact Drain Type: VALERIANO Drain Output Description: Serosanguineous Approximate mls Output: 80 Review of Systems Status of ROS: 10 or more systems reviewed and unremarkable except as noted in history and below Exam Exam Vital Signs: Vital Signs x48h Temp Pulse Pulse Resp BP BP Pulse Ox 01/14/25 10:00 92 26 H 134/54 H 98 01/14/25 09:00 83 22 126/55 L 96 01/14/25 08:00 37 C 80 19 129/54 L 94 01/14/25 07:00 78 21 116/51 L 93 01/14/25 06:00 85 21 140/62 H 97 01/14/25 05:58 86 140/62 H 01/14/25 05:00 80 20 130/51 L 94 01/14/25 04:00 36.9 C 77 24 130/56 L 97 01/14/25 03:00 79 20 117/57 L 93 Constitutional normal general appearance and no apparent distress HENMT NGT in place with bilious drainage in tubing/canister Eyes conjunctivae normal and no scleral icterus Neck/C-Spine visual inspection normal Respiratory normal respiratory effort Cardiovascular normal heart rate noted and regular rhythm noted Gastrointestinal Midline incision with dressing in place, right sided VAELRIANO in place with serosanguineous output, appropriately TTP, non distended and soft. Genitourinary Wadsworth catheter in place - pale clear yellow urine Extremities normal to inspection Neurology GCS 15 Psychiatry oriented x3, thought process normal, cooperative and affect normal Skin skin color normal Impression/Plan Problem List (1) Diverticulitis large intestine: (2) Small bowel obstruction: (3) Chronic HFrEF (heart failure with reduced ejection fraction): (4) Atrial fibrillation: Qualifiers: Atrial fibrillation type: unspecified Qualified Code(s): I48.91 - Unspecified atrial fibrillation (5) Pneumonia: (6) Small bowel obstruction: Plan 84 yo M w/ PMH of HTN, DM, HLD, CAD, HFrEF and diverticulitis who presented on 01/11 for laparoscopic hand assisted sigmoidectomy with INDUSTRIAL MILLWRIGHT anastomosis and due to adhesions underwent open lysis of adhesions and small bowel resection. Due to the significant inflammation of his colon and scarring of his small bowel he had a prolonged surgery with need for open mobilization and bowel resection. Afterwards he was admitted to the ICU for close monitoring and had TLC placed in the R IJ for access and borderline hypotension. POD3. Started on Zosyn yesterday for fever/hypoxia and CXR consistent with pna. This am WBC down. Neuro - Pain controlled - Alert and oriented x 4 - Continue tylenol mi and prn toradol/dilaudid for pain control CVS - HDS - Continue Metoprolol 2.5 q6 - Continue to monitor Resp - Doing well on 2L NC - Zosyn for pna - Continue to monitor GI - DC NGT, start clears at dinner if no nausea develops - Await ROBF - Protonix for GI ppx - DC Wadsworth - mIVF 75 Endo - Monitor BG, currently in target - Insulin orders placed, BG target 140-180 Heme - Hgb 7.9 from 9.4, likely partially dilutional from net 9L positive - Continue HSQ, no overt signs of bleeding - Continue to monitor ID - WBC down to 11 - Zosyn for pna - Continue to monitor MSK - OOB ambulate with RN assistance ad ortega - PT following Lines/Drains - DC Wadsworth - TLC, maintain for access and possible pressors in ICU care - VALERIANO, postoperative, continue until on regular diet Spring Piper DO, FACS General Surgeon, [facility]
[2025-01-14] MEDS: KETOROLAC 15 MG/ML VIAL IVP PRN (11:09)
--- NOTE | 2025-01-14 12:46 | PHARMACY PROGRESS NOTE ---
Best Possible Medication History Admit Date and Time: 01/11/25 0630 Home Medications Medication Instructions Recorded Confirmed Type nitroglycerin 0.4 mg sublingual 1 tab sublingual Q5M P RN Chest Pain 06/11/23 01/11/25 History tablet ipratropium bromide 21 mcg (0.03 2 spray intranasal QI D #90 mL 03/12/24 01/11/25 Rx %) nasal spray atorvastatin 40 mg tablet 40 mg PO DAILY 07/12/24 10/04/07 History metoprolol succinate 25 mg 25 mg PO DAILY 07/12/24 History tablet,extended release 24 hr furosemide 20 mg tablet See Rx Instructions PO DAILY #180 08/16/24 01/11/25 Rx tabs rivaroxaban 20 mg tablet (Xarelto) 20 mg PO QPM #90 ta bs 10/08/24 01/14/25 Rx lisinopril 5 mg tablet 5 mg PO DAILY 10/23/2401/14 History omeprazole 20 mg capsule,delayed 20 mg PO DAILY 01/14/25 History release vitamin A-vitamin C-vit E-min 1 tab PO DAILY 01/14/25 01/14/25 History tablet Processed by: Pharmacy Medications reviewed in ED?: Yes Medication History completed: Yes Patient Interview: Completed Secondary Source(s): Insurance records [facility] Statement: As the person ultimately responsible for medication therapy, providers are able to order a medication from an existing home medication list in [facility] via the "Reconcile Routine" prior to Confirmation of that medication by medical support specialist. Such practice is discouraged except when the physician, in their clinical judgment, deems that a medical need exists for a medication without regard to previous use.
[2025-01-14 14:05] LABS: HCT - HEMATOCRIT 27.1 % (42.0-52.0); HGB - HEMOGLOBIN 8.5 g/dL (14.0-18.0)
[2025-01-14] MEDS: INSULIN LISPRO 300 UNIT/3 ML PEN SUBQ SCH (21:23)
[2025-01-15 05:02] LABS: HCT - HEMATOCRIT 26.5 % (42.0-52.0); HGB - HEMOGLOBIN 7.9 g/dL (14.0-18.0); MEAN PLATELET VOLUME 12.2 fL (7.4-11.4); NRBC ABSOLUTE COUNT (AUTO) 0.00 x10^3/uL; NUCLEATED RED BLOOD CELLS AUTO 0.0 /100WBC; PLT - PLATELET COUNT 148 10^3/uL (130-450); RED CELL DISTRIBUTION WIDTH 15.6 % (12.0-15.0)
[2025-01-15 05:25] LABS: BUN - BLOOD UREA NITROGEN 13.0 mg/dL (6-20); CARBON DIOXIDE - CO2 25.0 mmol/L (21-32); CREATININE 1.1 mg/dL (0.6-1.3); GFR - MDRD 64.0 (>89); PHOSPHORUS 2.7 mg/dL (2.5-5.0)
[2025-01-15] MEDS: PANTOPRAZOLE 40 MG TABLET PO SCH (06:17)
--- NOTE | 2025-01-15 07:39 | PROVIDER PROGRESS NOTE ---
Subjective General Admit Date: 01/11/25 Procedure Date: 01/11/25 Post Op Days: 4 Procedure Performed: Lap hand assist sigmoidectomy w/ GAUGE MACHINE OPERATOR, open SBR and MAYA Other Other Information/Narrative: AF/HDN x24hr. WBC normal today. 530cc clears after NGT removed yesterday. One small BM in AM, continued flatus (sparse). 45cc from VALERIANO drain, ssf. 1075 UOP. Voiding well after copeland removal yesterday. Pain controlled with scheduled tylenol, toradol x2, and dilaudid x3. Hgb and Cr stable. Wound Assessment Wound/Incisions: positive Healing well and No drainage; negative Erythema Drain Type: VALERIANO Drain Output Description: Serosanguineous Approximate mls Output: 45 Review of Systems Status of ROS: 10 or more systems reviewed and unremarkable except as noted in history and below Exam Exam Vital Signs: Vital Signs x48h Temp Pulse Resp BP Pulse Ox 01/15/25 09:00 76 20 136/58 H 97 01/15/25 08:00 37.0 C 68 17 119/52 L 96 01/15/25 07:00 75 21 126/54 L 93 01/15/25 06:00 70 15 124/59 L 98 01/15/25 05:00 71 14 132/62 H 98 01/15/25 04:00 36.4 C L 70 12 127/60 96 01/15/25 03:00 75 20 129/52 L 95 01/15/25 02:00 72 20 132/57 H 95 Constitutional normal general appearance and no apparent distress Eyes conjunctivae normal and no scleral icterus Neck/C-Spine visual inspection normal Respiratory normal respiratory effort Cardiovascular normal heart rate noted and regular rhythm noted Gastrointestinal Midline incision dressing removed - staple line CDI without erythema, right sided VALERIANO in place with serosanguineous output, appropriately TTP, non distended and soft. Extremities normal to inspection Neurology GCS 15 Psychiatry oriented x3, thought process normal, cooperative and affect normal Skin skin color normal Impression/Plan Problem List (1) Diverticulitis large intestine: (2) Small bowel obstruction: (3) Fever: (4) Leukocytosis: (5) Anemia: (6) Hypotension after procedure: (7) Chronic HFrEF (heart failure with reduced ejection fraction): (8) Atrial fibrillation: Qualifiers: Atrial fibrillation type: unspecified Qualified Code(s): I48.91 - Unspecified atrial fibrillation (9) DM type 2 (diabetes mellitus, type 2): Qualifiers: Diabetes mellitus complication status: without complication 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 Due to the significant inflammation of his colon and scarring of his small bowel he had a prolonged surgery with need for open mobilization and bowel resection. Afterwards he was admitted to the ICU for close monitoring and had TLC placed in the R IJ for access and borderline hypotension. POD4. Doing well with no fevers on Zosyn for pna, WBC Normalized. Has AMILCAR. Neuro - Pain controlled - Alert and oriented x 4 - Change to scheduled PO tylenol & motrin, add PRN oxycodone, prn dilaudid for pain control CVS - HDS - Continue to monitor - Resume home meds Resp - Wean NC - Zosyn for pna - Continue to monitor GI - Advance Diet to soft, OK for foods from home - remove VALERIANO drain tomorrow if tolerating solid foods without leak - Protonix for GI ppx - DC mIVF Endo - Monitor BG, currently in target - Insulin orders placed, BG target 140-180 Heme - Hgb stable - Continue HSQ, no overt signs of bleeding - Resume xarelto tomorrow ID - WBC normalized - Zosyn for pna - Continue to monitor MSK - OOB ambulate with RN assistance ad ortega - PT following Lines/Drains - TLC - VALERIANO, postoperative, continue until on regular diet Spring Piper DO, FACS General Surgeon, [facility]
[2025-01-15] MEDS: METOPROLOL SUCCINATE 25 MG TABLET PO SCH (08:18)
[2025-01-15] MEDS: POTASSIUM CHLORIDE 20 MEQ/15 ML UDC PO ONE (08:18)
[2025-01-15] MEDS: ATORVASTATIN 40 MG TABLET PO SCH (08:18)
[2025-01-15] MEDS: ACETAMINOPHEN 500 MG TABLET PO SCH (10:26)
[2025-01-15] MEDS: POTASSIUM CHLORIDE 20 MEQ TABLET PO ONE (12:03)
[2025-01-15] MEDS: IBUPROFEN 600 MG TABLET PO SCH (12:04)
--- NOTE | 2025-01-15 12:27 | PROVIDER PROGRESS NOTE ---
Subjective Prog Note Date Prog Note Date: 01/15/25 Prog Note Time: 12:27 Subjective Pt reports feeling: Improved Subjective: Patient reports feeling fatigued but otherwise doing well with return of bowel function. Advanced to soft diet now, appetite is still poor but improving. Pain is improved, only taking Tylenol now. Denies any fevers, chills, cough or dyspnea. Current Medications Current Medications Current Medications: Current Medications Generic Name Dose Route Start Last Admin Trade Name Freq PRN Reason Stop Dose Admin Acetaminophen 1,000 mg 01/15/25 10:00 01/15/25 10:26 Acetaminophen 500 Mg Tablet PO 1,000 mg Q8H GILMAR Administration Atorvastatin Calcium 40 mg 01/15/25 09:00 01/15/25 08:18 Atorvastatin 40 Mg Tablet PO 40 mg DAILY GILMAR Administration Fluticasone Propionate 1 sprays 01/15/25 12:20 Fluticasone Nasal [place] MICKIE DAILY PRN rhinorrhea, runny nose - in place of ipratroprium Heparin Sodium (Porcine) 5,000 unit 01/12/25 14:00 01/15/25 06:16 Heparin 5,000 Unit/Ml Vial SUBQ 5,000 unit TID GILMAR Administration Hydromorphone HCl 1 mg 01/13/25 09:19 01/15/25 02:24 Hydromorphone 0.5 Mg/0.5 Ml Syringe IVP 1 mg Q4H PRN Administration Severe Pain (Level 7-10) Piperacillin Sod/Tazobactam 100 mls @ 25 mls/hr 01/13/25 12:00 01/15/25 12:04 Sod 3.375 gm/ Sodium Chloride IV 25 mls/hr Q8H GILMAR Administration Ibuprofen 600 mg 01/15/25 12:00 01/15/25 12:04 Ibuprofen 600 Mg Tablet PO 600 mg Q6HR GILMAR Administration Insulin Human Lispro 1 - 5 unit 01/14/25 21:25 01/15/25 12:04 Insulin Lispro 300 Unit/3 Ml Pen SUBQ Not Given 0800,1200,1700,2100 [facility] Protocol Lisinopril 5 mg 01/15/25 09:00 01/15/25 08:18 Lisinopril 5 Mg Tablet PO 5 mg DAILY GILMAR Administration Metoprolol Succinate 25 mg 01/15/25 09:00 01/15/25 08:18 Metoprolol Succinate 25 Mg Tablet PO 25 mg DAILY GILMAR Administration Ondansetron HCl 4 mg 01/11/25 16:27 Ondansetron 4 Mg/2 Ml Vial IVP Q6H PRN Nausea / Vomiting Oxycodone HCl 5 mg 01/15/25 09:09 Oxycodone 5 Mg Tablet PO Q4HR PRN Moderate Pain (Level 4-6) Pantoprazole Sodium 40 mg 01/15/25 07:00 01/15/25 06:17 Pantoprazole 40 Mg Tablet PO Not Given QDAC GILMAR Sodium Chloride 10 ml 01/11/25 17:00 01/15/25 08:18 Sodium Chloride Flush 0.9% 10 Ml Syringe IVP 10 ml 0100,0900,1700 GILMAR Administration Sodium Chloride 10 ml 01/11/25 16:27 01/15/25 04:18 Sodium Chloride Flush 0.9% 10 Ml Syringe IVP 10 ml PRN PRN Administration NEEDED PER PROVIDER ORDERS Objective Vital Signs/Intake & Output Reviewed Vital Signs: Yes Vital Signs: Vital Signs x48h Temp Pulse Resp BP Pulse Ox 01/15/25 09:00 76 20 136/58 H 97 01/15/25 08:00 37.0 C 68 17 119/52 L 96 01/15/25 07:00 75 21 126/54 L 93 01/15/25 06:00 70 15 124/59 L 98 01/15/25 05:00 71 14 132/62 H 98 Intake & Output: Intake & Output 01/12/25 01/13/25 01/14/25 01/15/25 23:59 22:59 23:59 23:59 Intake Total 2902 / 2902 4090 / 3990 3407 / 3407 1431 / 1431 Output Total 1530 / 1530 2363 / 2298 1367 / 1367 915 / 915 Balance 1372 / 1372 1727 / 1692 2040 / 2040 516 / 516 Objective Comments/Other: Gen: Well nourished and well developed. No acute distress, sitting up in chair. Heent: Normocephalic/atraumatic, normal appearance of external ears and nose. R IJ line. Cardiac: Regular rate and rhythm. No visible JVP elevation. Equal radial pulses 2+ Pulm: Normal respirations without increased effort. Clear to auscultation. Abdomen: Soft, rounded, appropriately tender. Midline incision well dressed, clean and intact. VALERIANO drain in R abdomen with <15mL SS fluid. Extremities: Moves all 4 extremities equally. Normal tone. Neuro: Face symmetric, CN II through XII intact grossly. No focal neurologic deficits. Psych: Mood euthymic with congruent affect. Good fund of knowledge. Judgment intact. Lab Results 01/15/25 04:20 01/15/25 04:20 Other Labs: Lab Results x24hrs 01/15/25 01/15/25 01/14/25 Range/Units 12:02 04:20 21:19 WBC 7.6 (4.8-10.8) x10^3/uL RBC 2.82 L (4.70-6.10) 10^6/uL Hgb 7.9 L (14.0-18.0) g/dL Hct 26.5 L (42.0-52.0) % MCV 94.0 (80.0-94.0) fL MCH 28.0 (27.0-31.0) pg MCHC 29.8 L (32.0-36.0) g/dL RDW 15.6 H (12.0-15.0) % Plt Count 148 (130-450) 10^3/uL MPV 12.2 H (7.4-11.4) fL Neut # (Auto) 6.3 (1.5-6.6) 10^3/uL Lymph # (Auto) 0.5 L (1.5-3.5) 10^3/uL [place] # (Auto) 0.5 (0.0-1.0) 10^3/uL Eos # (Auto) 0.3 (0.0-0.7) 10^3/uL Baso # (Auto) 0.0 (0.0-0.1) 10^3/uL Absolute Nucleated RBC 0.00 x10^3/uL Nucleated RBC % 0.0 /100WBC Sodium 136 (135-145) mmol/L Potassium 3.3 L (3.5-4.5) mmol/L Chloride 105 (101-111) mmol/L Carbon Dioxide 25 (21-32) mmol/L Anion Gap 6.0 (6-13) BUN 13 (6-20) mg/dL Creatinine 1.1 (0.6-1.3) mg/dL Estimated GFR (MDRD) 64 L (>89) Glucose 122 H (74-104) mg/dL POC Whole Bld Glucose 134 137 (70-100) mg/dL Calcium 7.8 L (8.5-10.3) mg/dL Phosphorus 2.7 (2.5-5.0) mg/dL Magnesium 2.0 (1.7-2.3) mg/dL 01/14/25 01/14/25 01/14/25 Range/Units 17:12 13:59 12:42 WBC (4.8-10.8) x10^3/uL RBC (4.70-6.10) 10^6/uL Hgb 8.5 L (14.0-18.0) g/dL Hct 27.1 L (42.0-52.0) % MCV (80.0-94.0) fL MCH (27.0-31.0) pg MCHC (32.0-36.0) g/dL RDW (12.0-15.0) % Plt Count (130-450) 10^3/uL MPV (7.4-11.4) fL Neut # (Auto) (1.5-6.6) 10^3/uL Lymph # (Auto) (1.5-3.5) 10^3/uL [place] # (Auto) (0.0-1.0) 10^3/uL Eos # (Auto) (0.0-0.7) 10^3/uL Baso # (Auto) (0.0-0.1) 10^3/uL Absolute Nucleated RBC x10^3/uL Nucleated RBC % /100WBC Sodium (135-145) mmol/L Potassium (3.5-4.5) mmol/L Chloride (101-111) mmol/L Carbon Dioxide (21-32) mmol/L Anion Gap (6-13) BUN (6-20) mg/dL Creatinine (0.6-1.3) mg/dL Estimated GFR (MDRD) (>89) Glucose (74-104) mg/dL POC Whole Bld Glucose 108 123 (70-100) mg/dL Calcium (8.5-10.3) mg/dL Phosphorus (2.5-5.0) mg/dL Magnesium (1.7-2.3) mg/dL Diagnostic Imaging Diagnostic Imaging Results: positive Final report reviewed Diagnostic Imaging Comments: 01-13-2025 CXR reveals new R sided basilar opacity. Enlarged cardiac silhouette and prominent kimberlee unchanged. 01-11-2025 CXR confirms position of NGT. RIJ line. Pneumoperitoneum noted. No acute cardiopulmonary process. 12-31-2024 ECHO LVEF estimated at 35-40%. Global left ventricular systolic function moderately decreased. L and R atrium are mild to moderately dilated. RVSP 43mmHg. Assessment/Plan Problem List (1) Diverticulitis large intestine: (2) Small bowel obstruction: Impression: Advancing well, moving to med-surg. RIJ line removed today. VALERIANO drain with minimal SS output. Pain continuing to improve. S/p Lap sigmoidectomy with extensive MAYA and 2 anastamoses 01/11. For chronic diverticulitis and small bowel obstruction with adhesions. Post-operatively complicated by hypotension and fever (see below), these have resolved. - Surgery remains primary - Pain mgmt with scheduled 1g IV Tylenol and 1mg Dilaudid q4H prn and oxycodone prn - Advancing diet as tolerated - PT/OT recommends SNF or alternatively stay at his partner's place with home health - Continue IS and mobility as tolerated - Heparin for DVT ppx, consider resuming Xarelto tomorrow - Repeat BMP and CBC in am - Repleting electrolytes as necessary (Mg, Phos, K, Ca) (3) Pneumonia: Impression: Had post-operative day 3 fever 39.4, has since remained afebrile with leukocytosis resolved. 1/4 blood culture bottles positive for Staph Epi is most likely contaminant. RIJ line is removed today. Continue treatment of R sided pneumonia, as seen on recent CXR. UA was not suggestive of infection. Patient continues to have clinical improvement without chills, cough. - Stop Zosyn and narrow to ceftriaxone tomorrow, will treat as CAP 5-7 days - Follow blood cultures - Pain medications as above - Monitor CBC am. (4) Anemia: Impression: Hgb stable. Expected intraoperative blood loss. Patient has no evidence of bleeding and is improving clinically. - Continue CBC in am. Restart Xarelto tomorrow (5) Hypotension after procedure: Impression: Resolved. Differential includes hypovolemia versus delayed anesthetic effect versus medication side effect. Fluids stopped, resumed BP meds. (6) Chronic HFrEF (heart failure with reduced ejection fraction): Impression: Not in acute decompensation. Clinically dry on exam. Received a dose of IV lasix after receiving multiple boluses post-operatively. Most recent ECHO 12-31-2024 with EF 35-40%, stable when compared to prior - 2023. GDMT home meds include only metoprolol and lisinopril. No MRA or SGLTi. Additionally is on Lasix 20 to 40 mg based on swelling in his lower extremities. Frequently 20 daily. - Resumed his metoprolol 25mg and lisinopril 5mg daily (7) Atrial fibrillation: Impression: CHADVASC 8. HASBLED 3. Hx of CAD s/p PCIx2. Taking low dose aspirin and Xarelto. - On Heparin for DVT ppx - Can consider restarting his Xarelto tomorrow - Likely discontinue aspirin when we resume his home meds, he does not need to be on ASA and a DOAC. Qualifiers: Atrial fibrillation type: unspecified Qualified Code(s): I48.91 - Unspecified atrial fibrillation (8) DM type 2 (diabetes mellitus, type 2): Impression: A1c 6.8. Not diabetic home meds listed. 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
[2025-01-15] MEDS: oxyCODONE 5 MG TABLET PO PRN (12:58)
[2025-01-15] MEDS: FLUTICASONE NASAL SPRAY NAS PRN (13:02)
[2025-01-15] MEDS: ONDANSETRON 4 MG/2 ML VIAL IVP PRN (14:02)
[2025-01-15] MEDS: PROCHLORPERAZINE 10 MG/2 ML VIAL IVP ONE (14:49)
[2025-01-15] MEDS: METOCLOPRAMIDE 10 MG/2 ML VIAL IVP PRN (15:35)
[2025-01-16] MEDS: LOPERAMIDE 2 MG CAPSULE PO PRN (02:02)
[2025-01-16 05:00] LABS: HCT - HEMATOCRIT 27.0 % (42.0-52.0); HGB - HEMOGLOBIN 8.3 g/dL (14.0-18.0); MEAN PLATELET VOLUME 11.9 fL (7.4-11.4); NRBC ABSOLUTE COUNT (AUTO) 0.00 x10^3/uL; NUCLEATED RED BLOOD CELLS AUTO 0.0 /100WBC; PLT - PLATELET COUNT 151 10^3/uL (130-450); RED CELL DISTRIBUTION WIDTH 15.5 % (12.0-15.0)
[2025-01-16 05:17] LABS: BUN - BLOOD UREA NITROGEN 14.0 mg/dL (6-20); CARBON DIOXIDE - CO2 23.0 mmol/L (21-32); CREATININE 1.1 mg/dL (0.6-1.3); GFR - MDRD 64.0 (>89); PHOSPHORUS 3.0 mg/dL (2.5-5.0)
[2025-01-16] MEDS: cefTRIAXone 1 GM VIAL IVP SCH (08:11)
[2025-01-16] MEDS ORDERED: cefTRIAXone 1 GM in SODIUM CHLORIDE 0.9% MINIBAG 100 ML IV SCH (09:00)
--- NOTE | 2025-01-16 12:04 | PROVIDER PROGRESS NOTE ---
Subjective Subjective Subjective: Patient reports feeling fatigued but otherwise doing well with return of bowel function. Advanced to soft diet now, appetite is still poor but improving. Pain is improved, only taking Tylenol now. Denies any fevers, chills, cough or dyspnea. Current Medications Current Medications Current Medications: Current Medications Generic Name Dose Route Start Last Admin Trade Name Freq PRN Reason Stop Dose Admin Acetaminophen 1,000 mg 01/15/25 10:00 01/16/25 11:07 Acetaminophen 500 Mg Tablet PO 1,000 mg Q8H GILMAR Administration Apixaban 5 mg 01/16/25 21:00 Apixaban 5 Mg Tablet PO BID GILMAR Atorvastatin Calcium 40 mg 01/15/25 09:00 01/16/25 08:11 Atorvastatin 40 Mg Tablet PO 40 mg DAILY GILMAR Administration Ceftriaxone Sodium 1 gm 01/16/25 09:00 01/16/25 08:11 Ceftriaxone 1 Gm Vial IVP 1 gm DAILY GILMAR Administration Fluticasone Propionate 1 sprays 01/15/25 12:20 01/15/25 13:02 Fluticasone Nasal [place] MICKIE 1 spr DAILY PRN Administration rhinorrhea, runny nose - in place of ipratroprium Hydromorphone HCl 1 mg 01/13/25 09:19 01/15/25 18:54 Hydromorphone 0.5 Mg/0.5 Ml Syringe IVP 1 mg Q4H PRN Administration Severe Pain (Level 7-10) Ibuprofen 600 mg 01/15/25 12:00 01/16/25 11:07 Ibuprofen 600 Mg Tablet PO 600 mg Q6HR GILMAR Administration Insulin Human Lispro 1 - 5 unit 01/14/25 21:25 01/16/25 08:11 Insulin Lispro 300 Unit/3 Ml Pen SUBQ Not Given 0800,1200,1700,2100 [facility] Protocol Lisinopril 5 mg 01/15/25 09:00 01/16/25 08:11 Lisinopril 5 Mg Tablet PO 5 mg DAILY GILMAR Administration Metoclopramide HCl 5 mg 01/15/25 15:23 01/15/25 15:35 Metoclopramide 10 Mg/2 Ml Vial IVP 5 mg Q6HR PRN Administration Nausea / Vomiting Metoprolol Succinate 25 mg 01/15/25 09:00 01/16/25 08:11 Metoprolol Succinate 25 Mg Tablet PO 25 mg DAILY GILMAR Administration Ondansetron HCl 4 mg 01/11/25 16:27 01/15/25 14:02 Ondansetron 4 Mg/2 Ml Vial IVP 4 mg Q6H PRN Administration Nausea / Vomiting Oxycodone HCl 5 mg 01/15/25 09:09 01/15/25 12:58 Oxycodone 5 Mg Tablet PO 5 mg Q4HR PRN Administration Moderate Pain (Level 4-6) Pantoprazole Sodium 40 mg 01/15/25 07:00 01/16/25 06:31 Pantoprazole 40 Mg Tablet PO 40 mg QDAC GILMAR Administration Sodium Chloride 10 ml 01/11/25 17:00 01/16/25 08:11 Sodium Chloride Flush 0.9% 10 Ml Syringe IVP 10 ml 0100,0900,1700 GILMAR Administration Sodium Chloride 10 ml 01/11/25 16:27 01/15/25 21:50 Sodium Chloride Flush 0.9% 10 Ml Syringe IVP 10 ml PRN PRN Administration NEEDED PER PROVIDER ORDERS Sterile Water 10 ml 01/16/25 09:00 01/16/25 08:11 Water For Injection,Sterile 10 Ml Vial MC 10 ml DAILY GILMAR Administration Objective Vital Signs/Intake & Output Reviewed Vital Signs: Yes Vital Signs: Vital Signs x48h Temp Pulse Resp BP Pulse Ox 01/16/25 06:35 97.5 F L 76 16 165/71 H 96 Intake & Output: Intake & Output 01/13/25 01/14/25 01/15/25 01/16/25 22:59 23:59 23:59 23:59 Intake Total 4090 / 3990 3407 / 3407 1531 / 1531 325 / 325 Output Total 2363 / 2298 1367 / 1367 1025 / 1025 330 / 330 Balance 1727 / 1692 2040 / 2040 506 / 506 -5 / -5 Objective Comments/Other: Gen: Well nourished and well developed. No acute distress, sitting up in chair. Heent: Normocephalic/atraumatic, normal appearance of external ears and nose. R IJ line. Cardiac: Regular rate and rhythm. No visible JVP elevation. Equal radial pulses 2+ Pulm: Normal respirations without increased effort. Clear to auscultation. Abdomen: Soft, rounded, appropriately tender. Midline incision well dressed, clean and intact. VALERIANO drain in R abdomen with <15mL SS fluid. Extremities: Moves all 4 extremities equally. Normal tone. Neuro: Face symmetric, CN II through XII intact grossly. No focal neurologic deficits. Psych: Mood euthymic with congruent affect. Good fund of knowledge. Judgment intact. Lab Results 01/16/25 04:25 01/16/25 04:25 Other Labs: Lab Results x24hrs 01/16/25 01/16/25 01/15/25 Range/Units 08:09 04:25 23:20 WBC 6.4 (4.8-10.8) x10^3/uL RBC 2.90 L (4.70-6.10) 10^6/uL Hgb 8.3 L (14.0-18.0) g/dL Hct 27.0 L (42.0-52.0) % MCV 93.1 (80.0-94.0) fL MCH 28.6 (27.0-31.0) pg MCHC 30.7 L (32.0-36.0) g/dL RDW 15.5 H (12.0-15.0) % Plt Count 151 (130-450) 10^3/uL MPV 11.9 H (7.4-11.4) fL Neut # (Auto) 4.8 (1.5-6.6) 10^3/uL Lymph # (Auto) 0.6 L (1.5-3.5) 10^3/uL Carbon # (Auto) 0.7 (0.0-1.0) 10^3/uL Eos # (Auto) 0.3 (0.0-0.7) 10^3/uL Baso # (Auto) 0.0 (0.0-0.1) 10^3/uL Absolute Nucleated RBC 0.00 x10^3/uL Nucleated RBC % 0.0 /100WBC Sodium 138 (135-145) mmol/L Potassium 3.4 L (3.5-4.5) mmol/L Chloride 107 (101-111) mmol/L Carbon Dioxide 23 (21-32) mmol/L Anion Gap 8.0 (6-13) BUN 14 (6-20) mg/dL Creatinine 1.1 (0.6-1.3) mg/dL Estimated GFR (MDRD) 64 L (>89) Glucose 104 (74-104) mg/dL POC Whole Bld Glucose 97 (70-100) mg/dL Calcium 7.8 L (8.5-10.3) mg/dL Phosphorus 3.0 (2.5-5.0) mg/dL Magnesium 2.1 (1.7-2.3) mg/dL Stl C. diff Tox B Gene NEGATIVE (NEGATIVE) 01/15/25 01/15/25 01/15/25 Range/Units 20:40 16:18 12:02 WBC (4.8-10.8) x10^3/uL RBC (4.70-6.10) 10^6/uL Hgb (14.0-18.0) g/dL Hct (42.0-52.0) % MCV (80.0-94.0) fL MCH (27.0-31.0) pg MCHC (32.0-36.0) g/dL RDW (12.0-15.0) % Plt Count (130-450) 10^3/uL MPV (7.4-11.4) fL Neut # (Auto) (1.5-6.6) 10^3/uL Lymph # (Auto) (1.5-3.5) 10^3/uL [place] # (Auto) (0.0-1.0) 10^3/uL Eos # (Auto) (0.0-0.7) 10^3/uL Baso # (Auto) (0.0-0.1) 10^3/uL Absolute Nucleated RBC x10^3/uL Nucleated RBC % /100WBC Sodium (135-145) mmol/L Potassium (3.5-4.5) mmol/L Chloride (101-111) mmol/L Carbon Dioxide (21-32) mmol/L Anion Gap (6-13) BUN (6-20) mg/dL Creatinine (0.6-1.3) mg/dL Estimated GFR (MDRD) (>89) Glucose (74-104) mg/dL POC Whole Bld Glucose 113 127 134 (70-100) mg/dL Calcium (8.5-10.3) mg/dL Phosphorus (2.5-5.0) mg/dL Magnesium (1.7-2.3) mg/dL Stl C. diff Tox B Gene (NEGATIVE) Diagnostic Imaging Diagnostic Imaging Results: positive Final report reviewed Diagnostic Imaging Comments: 01-13-2025 CXR reveals new R sided basilar opacity. Enlarged cardiac silhouette and prominent kimberlee unchanged. 01-11-2025 CXR confirms position of NGT. RIJ line. Pneumoperitoneum noted. No acute cardiopulmonary process. 12-31-2024 ECHO LVEF estimated at 35-40%. Global left ventricular systolic function moderately decreased. L and R atrium are mild to moderately dilated. RVSP 43mmHg. Assessment/Plan Problem List (1) Diverticulitis large intestine: Qualifiers: Diverticulitis bleeding: without bleeding Diverticulitis complication: with perforation Qualified Code(s): K57.20 - Diverticulitis of large intestine with perforation and abscess without bleeding (2) Small bowel obstruction: Impression: Patient had a laparoscopic sigmoidectomy with extensive lysis of adhesions, and 2 anastomosis on 01/11. Likely attributed to chronic diverticulitis, and recurrent small bowel obstructions with adhesions. Postoperative, course was complicated by hypotension and fever, which was attributed to aspiration pneumonia. Continue scheduled Tylenol, switch from IV to oral on 01/15. Continue Dilaudid and oxycodone as needed, but patient has not required many doses of opioid medication. Continue soft mechanical diet, tolerating well. Continue incentive spirometry, and encourage out of bed. Will switch heparin for DVT prophylaxis to Xarelto today. PT evaluated patient, and recommended SNF, but patient would like to go home with home health. (3) Pneumonia: Impression: Postoperatively, patient had a fever as well as leukocytosis. Chest x-ray showed right sided pneumonia. Completed 3 days of Zosyn, switched to Rocephin today. Will need 1 more day of IV antibiotics. Blood cultures 1 out of 4 positive for staph epi, likely contaminant. Right IJ removed 01/15. [place] catheter removed as well. Anticipate medically cleared for discharge tomorrow, pending completion of IV antibiotic course. Qualifiers: Pneumonia type: due to unspecified organism Laterality: unspecified laterality Lung location: unspecified part of lung Qualified Code(s): J18.9 - Pneumonia, unspecified organism (4) Anemia: Impression: Hemoglobin stable, likely expected intraoperative blood loss. No evidence of active bleeding. Xarelto to be resumed today. Qualifiers: Anemia type: unspecified type Qualified Code(s): D64.9 - Anemia, unspecified (5) Hypotension after procedure: Impression: Resolved. Differential includes hypovolemia versus delayed anesthetic effect versus medication side effect. Fluids stopped, resumed BP meds. (6) Chronic HFrEF (heart failure with reduced ejection fraction): Impression: Not in acute decompensation. Clinically dry on exam. Received a dose of IV lasix after receiving multiple boluses post-operatively. Most recent ECHO 12-31-2024 with EF 35-40%, stable when compared to prior 2023. GDMT home meds include only metoprolol and lisinopril. No MRA or SGLTi. Additionally is on Lasix 20 to 40 mg based on swelling in his lower extremities. Frequently takes 20mg daily. Resumed his metoprolol 25mg and lisinopril 5mg daily. (7) Atrial fibrillation: Impression: CHADVASC 8. HASBLED 3. Hx of CAD s/p PCIx2. Taking low dose aspirin and Xarelto. Continue only Xarelto. Qualifiers: Atrial fibrillation type: unspecified Qualified Code(s): I48.91 - Unspecified atrial fibrillation (8) DM type 2 (diabetes mellitus, type 2): Impression: A1c 6.8. No diabetic home meds listed. Sliding scale as needed. Qualifiers: Diabetes mellitus senior care insulin use: unspecified buttermaker insulin use status Diabetes mellitus complication status: without complication Q ualified Code(s): E11.9 - Type 2 diabetes mellitus without complications
--- NOTE | 2025-01-16 17:29 | PROVIDER PROGRESS NOTE ---
Subjective General Admit Date: 01/11/25 Procedure Date: 01/11/25 Post Op Days: 5 Procedure Performed: Lap hand assist sigmoidectomy w/ CUTTING MACHINE TENDER DECORATIVE, open SBR and MAYA Other Other Information/Narrative: Doing great. Tolerating soft diet. Passing flatus/BM. HDN/AF. Wound Assessment Wound/Incisions: positive Healing well and No drainage; negative Erythema Drain Type: VALERIANO Drain Output Description: Serosanguineous Approximate mls Output: 25 Review of Systems Status of ROS: 10 or more systems reviewed and unremarkable except as noted in history and below Exam Exam Vital Signs: Vital Signs x48h Temp Pulse Resp BP Pulse Ox 01/16/25 15:30 36.5 C 82 18 145/70 H 97 01/16/25 13:02 36.4 C 78 15 141/58 H 97 Constitutional normal general appearance and no apparent distress Eyes conjunctivae normal and no scleral icterus Neck/C-Spine visual inspection normal Respiratory normal respiratory effort Cardiovascular normal heart rate noted and regular rhythm noted Gastrointestinal Midline incision staple line CDI without erythema, right sided VALERIANO in place with serosanguineous output, minimally TTP, non distended and soft. Genitourinary penis normal Extremities normal to inspection Neurology GCS 15 Psychiatry oriented x3, thought process normal, cooperative and affect normal Skin skin color normal Impression/Plan Problem List (1) Diverticulitis large intestine: Qualifiers: Diverticulitis bleeding: without bleeding Diverticulitis complication: with perforation Qualified Code(s): K57.20 - Diverticulitis of large intestine with perforation and abscess without bleeding (2) Small bowel obstruction: (3) Pneumonia: Qualifiers: Pneumonia type: due to unspecified organism Laterality: unspecified laterality Lung location: unspecified part of lung Qualified Code(s): J18.9 - Pneumonia, unspecified organism (4) Anemia: Qualifiers: Anemia type: unspecified type Qualified Code(s): D64.9 - Anemia, unspecified (5) Hypotension after procedure: (6) Chronic HFrEF (heart failure with reduced ejection fraction): (7) Atrial fibrillation: Qualifiers: Atrial fibrillation type: unspecified Qualified Code(s): I48.91 - Unspecified atrial fibrillation (8) DM type 2 (diabetes mellitus, type 2): Qualifiers: Diabetes mellitus termite control representative insulin use: unspecified termite control representative insulin use status Diabetes mellitus complication status: without complication Qualified Code(s): E11.9 - Type 2 diabetes mellitus without complications Plan 84 yo M w/ PMH of HTN, DM, HLD, CAD, HFrEF and diverticulitis who presented on 01/11 for laparoscopic hand assisted sigmoidectomy with CUTTING MACHINE TENDER DECORATIVE anastomosis and due to adhesions underwent open lysis of adhesions and small bowel resection. Due to the significant inflammation of his colon and scarring of his small bowel he had a prolonged surgery with need for open mobilization and bowel resection. Afterwa rds he was admitted to the ICU for close monitoring and had TLC placed in the R IJ for access and borderline hypotension. POD5. Doing great. Neuro - Pain controlled - Alert and oriented x 4 - scheduled PO tylenol & motrin, PRN oxycodone, prn dilaudid for pain control CVS - HDS - Continue to monitor - home meds Resp - on RA - Continue to monitor GI - soft Diet - removed VALERIANO drain - Protonix for GI ppx Endo - Monitor BG, currently in target - Insulin orders placed, BG target 140-180 Heme - Hgb stable - On apixaban no overt signs of bleeding ID - WBC normalized - complete abx for pna tomorrow - Continue to monitor MSK - OOB ambulate with RN assistance ad ortega - PT following Dispo: Anticipate home tomorrow Spring Piper DO, FACS General Surgeon, [facility]
[2025-01-16] MEDS: APIXABAN 5 MG TABLET PO SCH (21:02)
[2025-01-17 05:29] LABS: HCT - HEMATOCRIT 30.3 % (42.0-52.0); HGB - HEMOGLOBIN 9.2 g/dL (14.0-18.0); MEAN PLATELET VOLUME 12.1 fL (7.4-11.4); PLT - PLATELET COUNT 215.0 10^3/uL (130-450); RED CELL DISTRIBUTION WIDTH 15.7 % (12.0-15.0)
[2025-01-17 05:47] LABS: BUN - BLOOD UREA NITROGEN 11.0 mg/dL (6-20); CARBON DIOXIDE - CO2 24.0 mmol/L (21-32); CREATININE 1.0 mg/dL (0.6-1.3); GFR - MDRD 71.0 (>89)
--- NOTE | 2025-01-17 08:30 | Discharge Summary ---
Discharge Summary Admit Date: 01/11/25 Discharge Date: 01/17/25 Discharging Provider: Dr. Theodore rTistan Primary Care Provider: Brooke Simon Discharge Facility Name: Home with Home Health DIAGNOSES Discharge Diagnoses with Status of Each Condition: Diverticulitis large intestine, small bowel obstruction Patient had a laparoscopic sigmoidectomy with extensive lysis of adhesions, and 2 anastomosis on 01/11. Likely attributed to chronic diverticulitis, and recurrent small bowel obstructions with adhesions. Postoperative, course was complicated by hypotension and fever, which was attributed to aspiration pneumonia. Now resolved. Continue soft mechanical diet, tolerating well. Continue incentive spirometry, and encourage out of bed. Continue Xarelto. Plan for Home with Home health. Pneumonia Postoperatively, patient had a fever as well as leukocytosis. Chest x-ray showed right sided pneumonia. Completed 3 days of Zosyn, 2 days of Rocephin. Blood cultures 1 out of 4 positive for staph epi, likely contaminant. Anemia Hemoglobin stable, likely expected intraoperative blood loss. No evidence of active bleeding. Xarelto resumed. Chronic HFrEF (heart failure with reduced ejection fraction) Not in acute decompensation. Clinically dry on exam. Most recent ECHO 12-31-2024 with EF 35- 40%, stable when compared to prior . GDMT home meds include only metoprolol and lisinopril. No MRA or SGLTi. Resumed his metoprolol 25mg and lisinopril 5mg daily. Atrial fibrillation CHADVASC 8. HASBLED 3. Hx of CAD s/p PCIx2. Taking low dose aspirin and Xarelto. Continue only Xarelto. DM type 2 (diabetes mellitus, type 2) A1c 6.8. No diabetic home meds listed. Continue carb-controlled diet. HPI History of Present Illness: Per Josefa Arzate: 84yo male with hx of recurrent SBO, chronic diverticulitis, remote open appendectomy, HFrEF, CAD s/p CABG, afib on AC, prostatectomy, lymphoma in remission, T2DM, HTN and HLD underwent elective lap hand assisted sigmoidectomy with primary anastomosis, extensive AMYA. Cardiac clearance by his presales engineer pre operatively, RCRi of 3 points, elevated risk of post op complications, but "cleared" to undergo surgery. Xarelto held 4 days pre operatively. In the immediate postoperative period Mr. Child had low blood pressures systolics as low as the high 70s over the mid 40s. Therefore instead of transferring to the [facility] floor he was transferred to the ICU. Medicine is asked to consult on this patient for postoperative ICU management. He was given 1 500 cc bolus in the recovery room. This was then repeated. He was then transferred to the ICU where a right IJ central line was placed. The intention was that pressors would be administered, however patient's blood pressure improved to the 120s over 50s. He is alert oriented and mentating well. He is able to recount to me what surgery he had and why he had it. He has complaints of some right lower quadrant abdominal pain Mr. Child is well-known to our service for recurrent small bowel obstructions. With his last admission earlier this month. I had an advance care planning discussion with him about 6 months ago. His CODE STATUS is no CPR but otherwise full care. He has a POLST on file, his medical decision maker is his significant other Pam Smith. CONSULTS | PROCEDURES Consultations: General surgery -primary Procedures: Chest x-ray - 01/13 - Increased peribronchial thickening and patchy opacity and bibasilar consolidations as discussed above. Chest x-ray - 01/11 - Gastric tube tip and sideport project. Right IJ central venous catheter tip projects over the high SVC. Pneumoperitoneum. HOSPITAL COURSE Hospital Course: Patient is a 84-year-old male with a history of recurrent SBOs who presented for elective l laparoscopic sigmoidectomy with primary anastomosis and extensive lysis of adhesions. He had a leukocytosis following surgery, and some hypotension, as well as a fever. Chest x-ray showed infiltrate concerning for pneumonia. Zosyn was started, which was transition to Rocephin, and he completed 5 days of IV antibiotics. Had return of bowel function, tolerated diet well without nausea or vomiting. Physical therapy worked with the patient, and recommended SNF. Patient elected for home with home health. He was sent home in stable condition, will need close follow-up with surgery in the outpatient, as well as primary care provider. ALLERGIES Allergies Allergy/AdvReac Type Severity Reaction Status Date / Time empagliflozin (From AdvReac Nausea Verified 01/11/25 07:10 Jardiance) milk AdvReac gas Verified 01/11/25 07:10 MEDICATIONS Ambulatory Orders Medication Instructions Recorded Confirmed nitroglycerin 0.4 mg sublingual 1 tab sublingual Q5M P RN Chest Pain 06/11/23 01/11/25 tablet ipratropium bromide 21 mcg (0.03 2 spray intranasal QI D #90 mL 03/12/24 01/11/25 %) nasal spray atorvastatin 40 mg tablet 40 mg PO DAILY 07/12/24/04/07 metoprolol succinate 25 mg 25 mg PO DAILY 07/12/24 tablet,extended release 24 hr furosemide 20 mg tablet See Rx Instructions PO DAILY #180 08/16/24 01/11/25 tabs rivaroxaban 20 mg tablet (Xarelto) 20 mg PO QPM #90 ta bs 10/08/24 01/14/25 lisinopril 5 mg tablet 5 mg PO DAILY 10/23/2401/14 omeprazole 20 mg capsule,delayed 20 mg PO DAILY 01/14/25 release vitamin A-vitamin C-vit E-min 1 tab PO DAILY 01/14/25 01/14/25 tablet PHYSICAL EXAM AT DISCHARGE Vital Signs: Vital Signs x48h Temp Pulse Resp BP Pulse Ox 01/17/25 12:40 97.7 F 83 16 120/86 98 Gen: Well nourished and well developed. No acute distress, sitting up in chair. Heent: Normocephalic/atraumatic, normal appearance of external ears and nose. R IJ line. Cardiac: Regular rate and rhythm. No visible JVP elevation. Equal radial pulses 2+ Pulm: Normal respirations without increased effort. Clear to auscultation. Abdomen: Soft, rounded, appropriately tender. Midline incision well dressed, clean and intact. Extremities: Moves all 4 extremities equally. Normal tone. Neuro: Face symmetric, CN II through XII intact grossly. No focal neurologic deficits. Psych: Mood euthymic with congruent affect. Good fund of knowledge. Judgment intact. LABS 01/17/25 04:42 01/17/25 04:42 DIAGNOSTIC IMAGING Diagnostic Imaging Results: Final report reviewed FOLLOW UP Follow Up: Follow up general surgery. Follow up PCP. TIME SPENT Time Spent in Discharge (Minutes): 35 Discharge Plan Discharge Patient Disposition: Home, Self Care Medically Cleared Date:: 01/17/25 Prescriptions: Continued furosemide 20 mg tablet See Rx Instructions PO DAILY Qty: 180 1RF Rx Instructions: 1-2 daily in the morning for heart failure and swelling orally daily; nitroglycerin 0.4 MG tablet, sublingual 1 tab sublingual Q5M PRN (Reason: Chest Pain) metoprolol succinate 25 mg tablet extended release 24 hr 25 mg PO DAILY atorvastatin 40 mg tablet 40 mg PO DAILY lisinopril 5 mg tablet 5 mg PO DAILY Patient Comments: Updated by [facility] 10/15/24 Rx Instructions: for blood pressure omeprazole 20 mg capsule,delayed release(DR/EC) 20 mg PO DAILY vitamin A-vitamin C-vit E-min Tablet 1 tab PO DAILY ipratropium bromide 21 mcg (0.03 %) spray,non-aerosol 2 spray intranasal QID Qty: 90 3RF Rx Instructions: administer into each nostril Xarelto 20 mg tablet 20 mg PO QPM Qty: 90 3RF Patient Comments: per pt stopped taking about 8 days ago for prep for surgery Activity Restrictions: Activity as Tolerated Activity Restrictions/Additional Instructions: DIET * You may continue your normal diet. * If nausea or vomiting occurs, don't eat or drink anything for one hour. Then start drinking small amounts of clear liquids. Later, add crackers, gradually building up to your usual diet. ACTIVITY INSTRUCTIONS * No lifting more than 20 pounds for 4 weeks * May shower normally DRESSING CARE * The incision may remain "open to air" without bandage * The bandage on the drain site in the right lower quadrant may be removed on Thursday 01/18 * The meli will be removed at your follow up visit * Using supportive garments to reduce surgical site motion will reduce pain DISCHARGE INSTRUCTIONS * Please call the General Surgery Clinic / Dr. Piper's office ([phone]) for any questions or signs of bleeding or infection (redness or drainage at incision, worsening pain/nausea/vomiting/fever). * Go to the Emergency Room after hours for severe symptoms. MEDICATIONS * Use Tylenol (acetaminophen) and Motrin (ibuprofen) on a scheduled basis for the first 3-5 days, then on as "as needed" basis as pain decreases. * Use [id number] Miralax twice a day as needed for constipation FOR THE NEXT 24 HOURS: * Have a responsible person with you * Avoid any activity that requires you to be alert and coordinated * DO NOT DRIVE a motor vehicle for 24 hours or as long as you are taking opioid pain medication * Do not drink alcoholic beverages * Do not smoke unattended Patient Date Escort Date RN Date Diet: Regular Health Concerns: DIET * You may continue your normal diet. * If nausea or vomiting occurs, don't eat or drink anything for one hour. Then start drinking small amounts of clear liquids. Later, add crackers, gradually building up to your usual diet. ACTIVITY INSTRUCTIONS * No lifting more than 20 pounds for 4 weeks * May shower normally DRESSING CARE * The incision may remain "open to air" without bandage * The bandage on the drain site in the right lower quadrant may be removed on Thursday 01/18 * The meli will be removed at your follow up visit * Using supportive garments to reduce surgical site motion will reduce pain DISCHARGE INSTRUCTIONS * Please call the General Surgery Clinic / Dr. Piper's office ([phone]) for any questions or signs of bleeding or infection (redness or drainage at incision, worsening pain/nausea/vomiting/fever). * Go to the Emergency Room after hours for severe symptoms. MEDICATIONS * Use Tylenol (acetaminophen) and Motrin (ibuprofen) on a scheduled basis for the first 3-5 days, then on as "as needed" basis as pain decreases. * Use [id number] Miralax twice a day as needed for constipation FOR THE NEXT 24 HOURS: * Have a responsible person with you * Avoid any activity that requires you to be alert and coordinated * DO NOT DRIVE a motor vehicle for 24 hours or as long as you are taking opioid pain medication * Do not drink alcoholic beverages * Do not smoke unattended Patient Date Escort Date RN Date Print Language: Polish Patient Instructions: Surg Dc Follow-up Care: Gwyn Rose MD [Provider Admit Priv/Credential, Oncology/Hematology] - 03/26/25 2:20 pm Spring Piper DO [Provider Admit Priv/Credential, Surgery, General] - 01/22/25 11:00 am Brooke Simon PA-C [Primary Care Provider, Family Practice] - 02/11/25 11:40 am Vitals documented within 30 minutes of discharge?: Yes
[2025-01-17] MEDS: POTASSIUM CHLORIDE 20 MEQ TABLET PO ONE (09:09)
[2025-01-17 09:13] VITALS: TEMP 97.7
[2025-01-17] MEDS ORDERED: HYDROmorphone 1 MG/ML CARPUJECT IVP PRN (09:18)
--- NOTE | 2025-01-17 10:45 | PROVIDER PROGRESS NOTE ---
Subjective General Admit Date: 01/11/25 Procedure Date: 01/11/25 Post Op Days: 6 Procedure Performed: Lap hand assist sigmoidectomy w/ SHIPPING AND RECEIVING SPECIALIST, open SBR and MAYA Other Other Information/Narrative: VALERIANO out yesterday. HDN/AF/RA. VIDYA. Tolerating PO with small appetitie, still had + BF. Has not used narcotics in > 24hrs. Wound Assessment Wound/Incisions: positive Healing well and No drainage; negative Erythema Review of Systems Status of ROS: 10 or more systems reviewed and unremarkable except as noted in history and below Exam Exam Vital Signs: Vital Signs x48h Temp Pulse Resp BP Pulse Ox 01/17/25 09:11 36.5 C 93 16 151/72 H 96 Constitutional normal general appearance and no apparent distress Eyes conjunctivae normal and no scleral icterus Neck/C-Spine visual inspection normal Respiratory normal respiratory effort Cardiovascular normal heart rate noted and regular rhythm noted Gastrointestinal soft, nondistended. Incision CDI with meli. Extremities normal to inspection Neurology GCS 15 Psychiatry oriented x3, thought process normal, cooperative and affect normal Skin skin color normal Impression/Plan Problem List (1) Diverticulitis large intestine: Qualifiers: Diverticulitis bleeding: without bleeding Diverticulitis complication: with perforation Qualified Code(s): K57.20 - Diverticulitis of large intestine with perforation and abscess without bleeding (2) Small bowel obstruction: (3) Pneumonia: Qualifiers: Pneumonia type: due to unspecified organism Laterality: unspecified laterality Lung location: unspecified part of lung Qualified Code(s): J18.9 - Pneumonia, unspecified organism (4) Anemia: Qualifiers: Anemia type: unspecified type Qualified Code(s): D64.9 - Anemia, unspecified (5) Hypotension after procedure: (6) Chronic HFrEF (heart failure with reduced ejection fraction): (7) Atrial fibrillation: Qualifiers: Atrial fibrillation type: unspecified Qualified Code(s): I48.91 - Unspecified atrial fibrillation (8) DM type 2 (diabetes mellitus, type 2): Qualifiers: Diabetes mellitus termite exterminator helper insulin use: unspecified custodial insulin use status Diabetes mellitus complication status: without complication Qualified Code(s): E11.9 - Type 2 diabetes mellitus without complications Plan 84 yo M w/ PMH of HTN, DM, HLD, CAD, HFrEF and diverticulitis who presented on 01/11 for laparoscopic hand assisted sigmoidectomy with SHIPPING AND RECEIVING SPECIALIST anastomosis and due to adhesions underwent open lysis of adhesions and small bowel resection. Due to the significant inflammation of his colon and scarring of his small bowel he had a prolonged surgery with need for open mobilization and bowel resection. Afterwards he was admitted to the ICU for close monitoring and had TLC placed in the R IJ for access and borderline hypotension. POD6. Stable for DC home. Last dose of abx for pna today. Neuro - Pain controlled - Alert and oriented x 4 - scheduled PO tylenol & motrin pain control CVS - HDS - home meds Resp - on RA GI - soft Diet Endo - Monitor BG, currently in target - Insulin orders placed, BG target 140-180 Heme - Hgb stable - On apixaban ID - WBC x3d - complete abx for pna today MSK - OOB ambulate with RN assistance ad ortega - PT following Dispo: DC home today Spring Piper DO, FACS General Surgeon, [facility]
[2025-01-17 13:37] VITALS: BP 120/86; O2SAT 98
== END 2025-01-17 12:55 | disposition home or self-care (01) | DRG 329 ==
LOC: SDS 06:22 → MS2 06:30 → ICU 16:23 → MS2 01-16 14:22
PROVIDERS: ADMIT Surgery; ATTEND Surgery
DX: I11.0 Hypertensive heart disease with heart failure; Z79.899 Other long term (current) drug therapy; Z66 Do not resuscitate; I95.81 Postprocedural hypotension; K56.609 Unspecified intestinal obstruction, unspecified as to partial versus complete obstruction; K56.50 Intestinal adhesions [bands], unspecified as to partial versus complete obstruction; Z87.891 Personal history of nicotine dependence; Z79.01 Long term (current) use of anticoagulants; K57.32 Diverticulitis of large intestine without perforation or abscess without bleeding; Z79.82 Long term (current) use of aspirin; K91.71 Accidental puncture and laceration of a digestive system organ or structure during a digestive system procedure; Y92.234 Operating room of hospital as the place of occurrence of the external cause; K21.9 Gastro-esophageal reflux disease without esophagitis; Z95.1 Presence of aortocoronary bypass graft; E11.42 Type 2 diabetes mellitus with diabetic polyneuropathy; Z53.31 Laparoscopic surgical procedure converted to open procedure; J69.0 Pneumonitis due to inhalation of food and vomit; E78.5 Hyperlipidemia, unspecified; I48.91 Unspecified atrial fibrillation; D62 Acute posthemorrhagic anemia; I25.10 Atherosclerotic heart disease of native coronary artery without angina pectoris; Y65.8 Other specified misadventures during surgical and medical care; I50.22 Chronic systolic (congestive) heart failure